=== PATIENT | female | born 1960 | race Caucasian/White ===

== ENCOUNTER 2022-01-30 11:22 | Outpatient (CLI) | payer OTHER, SELFPAY ==
--- OUTSIDE RECORDS SUMMARY | 2022-01-30 11:32 | XMS_ITS | Encounter Summary ---
:1960 Author Organization [facility] Address [address] [place] [phone] Care Team Providers Name Role Phone Elsewhere, Pcp Primary Care Provider Unavailable Reason for Referral Outpatient (Routine) - Authorized Specialty Diagnoses / Procedures Referred By Contact Refer red To Contact Neurology Андрей Gil M.D. [address] [phone] Referral ID Status Reason Start Date Expiration Date Visits V isits Requested Authorized [id number] Authorized 11/20/2021 11/20/2022 1 1 Scheduling Instructions All appointments on the same day with [facility] Neurosurgery and Ophthalmology. Thank you utpatient (Routine) - Authorized Specialty Diagnoses / Procedures Referred By Contact Refer red To Contact Ophthalmology Diagnoses Meningioma Brain (HCC) Андрей Gil M.D. [address] [phone] Referral ID Status Reason Start Date Expiration Date Visits V isits Requested Authorized [id number] Authorized 11/20/2021 11/20/2022 1 1 Reason for Visit Appointment Request (Routine) - Authorized Specialty Diagnoses / Procedures Referred By Contact Refer red To Contact Neurology Diagnoses Tumor Brain Benign (HCC) Referral ID Status Reason Start Date Expiration Date Visits V isits Requested Authorized [id number] Authorized 11/12/2021 11/12/2022 2 2 Encounter Details Date Type Department Care Team Description 11/20/2021 Comprehensive Visit Department of [facility], Rajiv Maddox Brain Neurology in [place] ([facility]) (Primary Dx) [place], [place] 200 [facility] [address] [place] [phone] Social History Tobacco Use Types Packs/Day Years Used Date Smoking Tobacco: Former Cigarettes 25 04/1977 - 04/27/2016 Smokeless Tobacco: Never Comments: Half pack daily on average whe n smoking Alcohol Use Standard Drinks/Week Comments Yes 3 (1 standard drink = 0.6 oz pure alcoho l) 1-2 shots a week Alcohol Habits Answer Date Recorded How often do you have a drink containing alcohol? 2-4 times a month 11/16/2021 How many drinks containing alcohol do you have on a 1 or 2 11/16/2021 typical day when you are drinking? How often do you have six or more drinks on one Never 11/16/2021 occasion? Comment: 1-2 shots a week 11/19/2021 Social Isolation Answer Date Recorded In a typical week, how many times do you More than three leesa es a week 11/16/2021 talk on the phone with family, friends, or neighbors? How often do you get together with friends Twice a week 11/16/2021 or relatives? How often do you attend temple or Never 2021 buddhist services? Do you belong to any clubs or No 11/16/2021 organizations such as temple groups, unions, fraternal or athletic groups, or school groups? How often do you attend meetings of the Never 11/16/2021 clubs or organizations you belong to? Are you now , , , 11/16/2021 , never or living with a partner? Physical Activity Answer Date Recorded On average, how many days per week do you engage in moderate to 2 days 11/16/2021 strenuous exercise (like walking fast, running, jogging, dancing, swimming, biking, or other activities that cause a light or heavy sweat)? On average, how many minutes do you engage in exercise at is 60 min 11/16/2021 level? Stress Answer Date Recorded Do you feel stress - tense, restless, nervous, or anxious, o r Very much 11/16/2021 unable to sleep at night because your mind is troubled all the time - these days? Financial Resource Strain Answer Date Recorded How hard is it for you to pay for the very basics like Not h slick at all 11/16/2021 food, housing, medical care, and heating? Intimate Partner Violence Answer Date Recorded Within the last year, have you been afraid of your partner o r No 11/16/2021 ex-partner? Within the last year, have you been humiliated or emotionall y No 11/16/2021 abused in other ways by your partner or ex-partner? Within the last year, have you been kicked, hit, slapped, or No 11/16/2021 otherwise physically hurt by your partner or ex-partner? Within the last year, have you been raped or forced to have any No 11/16/2021 kind of sexual activity by your partner or ex-partner? Food Insecurity Answer Date Recorded Within the past 12 months, you worried that your food would Never true 11/16/2021 run out before you got money to buy more. Within the past 12 months, the food you bought just didn't N ever true 11/16/2021 last and you didn't have money to get more. Transportation Needs Answer Date Recorded In the past 12 months, has lack of transportation kept you f rom No 11/16/2021 medical appointments or from getting medications? In the past 12 months, has lack of transportation kept you f rom No 11/16/2021 meetings, work, or getting things needed for daily living? Housing Stability Answer Date Recorded In the last 12 months, was there a time when you were not ab le No 11/16/2021 to pay the mortgage or rent on time? In the last 12 months, how many places have you lived? 1 11/16/2021 In the last 12 months, was there a time when you did not hav e a No 11/16/[address] sleep or slept in a alf (including now)? Education Answer Date Recorded What is the highest level of school Bachelor's degree (e.g., BA, AB, 11/16/2021 you have completed or the highest BS) degree you have received? Sex Assigned at Date Recorded Female 11/16/2021 11:51 AM CDT documented as of this encounter Last Filed Vital Signs Vital Sign Reading Time Taken Comments Blood Pressure 134/79 11/20/2021 8:50 AM CDT Pulse 63 11/20/2021 8:50 AM CDT Temperature - - Respiratory Rate - - Oxygen Saturation - - Inhaled Oxygen Concentration - - Weight 85.4 kg (188 lb 4.4 oz) 11/20/2021 8:50 AM CDT Height 166.2 cm (5' 5.43) 11/20/2021 8:50 AM CDT Body Mass Index 30.92 11/20/2021 8:50 AM CDT documented in this encounter Consult Notes Андрей Gil M.D. - 11/20/2021 9:00 AM CDT Images from the original note were not included. SUBJECTIVE CHIEF COMPLAINT/ REASON FOR VISIT Possible meningioma HISTORY OF PRESENT ILLNESS Ms. Miller is a very pleasant 61-year-old left-handed woman who on 11/12/2021 presented with acute onset vertigo. She awoke in the morning feeling perfectly fine but then when she bent down to picksomething off the floor, she experienced a tremendous sense of rotational vertigo as she was coming back up. This caused her to be nauseated and feel quite distressed. She was brought to the local hospital where she underwent a stroke workup; CT perfusion and angio studies were unremarkable). MRI revealed what appears to be a right cavernous sinus region mass and hence the referral to the Neurology/Neuro-Oncology Clinic today. She feels that the vertigo has improved significantly although she still feels a hint of rotational vertigo if she changes positions too quickly but she is still much better. Since the vertigo attack on November 12, she is noticed that the vision in the right eye is slightly blurry. She feels that the vision was in no way affected prior to November 12. Otherwise in good health. Has bilateral hearing difficulties and tinnitus going back many years, in part related to exposure to loud noises in the past. SYSTEMS REVIEW CURRENT MEDICATIONS Current Outpatient Medications Medication Sig Dispense Refill acetaminophen (TYLENOL) 500 mg capsule Take 2 capsules by mouth as needed. albuterol 90 mcg/actuation inhaler Inhale 2 puffs as needed. budesonide (ENTOCORT EC) 3 mg 24 hr capsule TAKE 3 CAPSULES BY MOUTH EVERY DAY IN THE MORNING FOR 8WEEKS buPROPion XL (WELLBUTRIN XL) 150 mg 24 hr tablet Take 1 tablet (150 mg) by mouth every morning for 7 days, THEN 2 tablets (300 mg) every morning for 23 days. diazePAM (VALIUM) 2 mg tablet Take 0.5-1 tablets (1-2 mg) by mouth every 6 hours as needed (vertigo) lisinopril-hydroCHLOROthiazide (PRINZIDE,ZESTORETIC) 10-12.5 mg per tablet Take 1 tablet by mouth daily. triamcinolone (KENALOG) 0.1 % cream Apply 1 application topically 2 (two) times a day as needed. Toaffected area. No current facility-administered medications for this visit. ALLERGIES Varenicline PAST MEDICAL HISTORY Past Medical History: Diagnosis Date Anxiety Generalized Disorder Cataract Colitis Ulcerative (HCC) 09/25/2021 Depressive Disorder 1994 Eczema Hyperlipidemia Hypertension NOS Polyp Colon 03/2021 Stone Kidney PAST SURGICAL HISTORY Past Surgical History: Procedure Laterality Date BREAST SURGERY 2001 Reduction SECTION 1982 HYSTERECTOMY 2000 FAMILY HISTORY Family History Problem Relation Age of Onset Hypertension Mother Hyperlipidemia Mother Thyroid disease Mother Osteoporosis Mother Kidney disease Mother Colon polyps Mother Depression Mother Stroke Maternal Grandfather mid 60???s stroke Breast cancer Maternal Grandmother Dx early 70???s Diabetes Maternal Grandmother Childhood diabetes Lung cancer Paternal Grandfather Dx mid 60???s non smoker Asthma Daughter SOCIAL HISTORY Social History Tobacco Use Smoking Status Former Years: 25.00 Types: Cigarettes Start date: 04/27/1977 Quit date: 04/27/2016 Years since quittin.5 Smokeless Tobacco Never Tobacco Comments Half pack daily on average when smoking Social History Substance and Sexual Activity Drug Use Never Social History Substance and Sexual Activity Alcohol Use Yes Alcohol/week: 3.0 standard drinks Types: 1 Cans of beer, 2 Shots of liquor per week Comment: 1-2 shots a week VITAL SIGNS Vitals: 11/20/21 0850 BP: 134/79 BP Location: Right arm Patient Position: Sitting Pulse: 63 Weight: 85.4 kg Height: 166.2 cm MOST RECENT LABS OBJECTIVE PHYSICAL EXAM On exam, she is alert, conversive. She does have some hearing difficulties and the audiology exam done sometime ago locally indicated this is sensorineural loss bilaterally. Mental status is normal. The cranial nerve testing shows normal eye movements and specifically nothing for dysconjugate gaze.Pupils are equal but there is a slight relative afferent pupillary defect on the right side (this jeison subtle finding). Funduscopy shows absent venous pulsations on the right side. Her acuity appears not to be affected least on bedside testing. Rest of the cranial nerve testing is normal. In particular, nothing for trigeminal sensory deficits. Normal strength and coordination. Gait is steady. Toes are downgoing. IMAGING STUDIES & LAB RESULTS Per the images of November 12 below, there is what appears to be a meningioma in the right cavernous sinus region, with possible calcification within the core of the mass. Also, per the coronal image on the right panel, the tumor does contact the right aspect of the chiasm and seems to also encases the carotid and the optic nerve partly as well. Findings are compatible with meningioma. Of note, in terms of her vertigo that brought her to medical attention, the eighth cranial nerve complex looks unremarkable. ASSESSMENT / PLAN IMPRESSIONS & PLAN SUMMARY & FORMULATION: In summary, Ms. Miller is a 61-year-old woman with a longstanding history of bilateral hearing difficulties and tinnitus, who presented with acute-onset vertigo on the morning of November 12. In the emergency department setting, underwent detailed evaluations which fortunately ruled out stroke but revealed what appears to be a right skull base meningioma, causing mass effect on the optic apparatus and encasement of the carotid as well as the apex portion of the optic nerve. She really has not noticed any visual difficulties in the right eye until the episode of vertigo on November 12. Clinical examis unremarkable except for a slight relative afferent pupillary defect on the right side, likely attr ibutable to this tumor impinging upon the optic apparatus. In terms of her vertigo, this appears to be peripheral vestibular in origin and has already nearly resolved. SYNOPSIS OF PLAN: We will obtain a detailed Neuro-Ophthalmology exam including visual field testing to better assess to what extent her optic nerve function is affected by this tumor. DISCUSSION: We will bring her back for the Neuro-Ophthalmology exam and at that point, we will have her visit one of our skull base neurosurgical colleagues and I will see her at that time as well. If the detailed neurophthalmologic examination demonstrates significant optic nerve dysfunction, then she would need treatment. Because of the location of the tumor, surgery may be challenging and therefore she may be more of a candidate for fractionated radiation. Again, we will go through these discussions more detail once we have the ophthalmologic findings in hand. I reviewed the images frame by frame with the patient and her squirrel man. She is in agreement with the aforementioned plans and I look forward to seeing her back. DIAGNOSES #1 Meningioma documented in this encounter Plan of Treatment Upcoming Encounters Date Type Specialty Care Team Description 02/03/2022 Clinical Communication Admitting/Central Scheduling 02/04/2022 Ancillary Procedure Ophthalmology Андрей Gil M.D. [address] [place] [phone] 02/04/2022 Ancillary Procedure Ophthalmology Robby Coppola M.D. [address] [place] [phone] 02/04/2022 Ancillary Procedure Ophthalmology Robby Coppola M.D. [address] [place] [phone] 02/04/2022 Comprehensive Visit Ophthalmology Robby Coppola M.D. [address] [place] [phone] 02/06/2022 Office Visit Neurology Андрей mark M.D. [address] [place] [phone] 02/07/2022 Comprehensive Visit Neurological Surgery Charlotte Elam M.D., Ph.D. [address] [place] [phone] Scheduled Orders Name Type Priority Associated Diagnoses Order S chedule Automated VF - Ophthalmology Routine Meningioma Brain (HCC) Ex pected: Extended - OU - Both 022 Eyes (Approximate), Expires: 2022 Scheduled Referrals Name Type Priority Associated Order Schedule Diagnoses Ophthalmology - Neuro Outpatient Referral Routine Meningioma B rain Expected: consult (clinic) ([facility]) 11/20/2021 (Approximate), Expires: 02/20/2023 Neurology office visit Outpatient Referral Routine Expected: (clinic) 11/20/2021 (Approximate), Expires: 02/20/2023 documented as of this encounter Visit Diagnoses Diagnosis Meningioma Brain (HCC) - Primary documented in this encounter Care Teams Derrick Barge Operator Relationship Specialty Start Date End Date Elsewhere, Pcp PCP - General Internal Medicine 11/19/21 documented as of this encounter
--- OUTSIDE RECORDS SUMMARY | 2022-01-30 11:32 | XMS_ITS | Encounter Summary ---
:1960 Author Organization [facility] Address [address] [place] [address] Care Team Providers Name Role Phone Unavailable Primary Care Provider Unavailable Reason for Referral Outpatient (Routine) - Closed Specialty Diagnoses / Procedures Referred By Contact Refer red To Contact Diagnoses Long QT Syndrome Garland Simpson M.D., Procedures ECG Heart rhythm monitor (Holter) Ph.D. [address] [place], [place] [phone] Referral ID Status Reason Start Date Expiration Date Visits Requ ested Visits Authorized [id number] Closed 03/30/2019 03/29/2020 1 1 CUTTER Reason for Visit Outpatient (Routine) - Closed Specialty Diagnoses / Procedures Referred By Contact Refer red To Contact Diagnoses Long QT Syndrome Garland Simpson M.D., Procedures ECG Heart rhythm monitor (Holter) Ph.D. [address] [place], [place] [phone] Referral ID Status Reason Start Date Expiration Date Visits Requ ested Visits Authorized [id number] Closed 03/30/2019 03/29/2020 1 1 Encounter Details Date Type Department Care Team Description 06/16/2019 Hospital Encounter Department of [facility] QT Syndrome Cardiovascular Diseases Garland Parker M.D., in [facility] Ph.D. [address] [facility] [address] [place] [phone] Social History Tobacco Use Types Packs/Day Years Used Date Smoking Tobacco: Never Assessed Alcohol Habits Answer Date Recorded How often do you have a drink containing alcohol? 2-4 times a month 11/16/2021 How many drinks containing alcohol do you have on a 1 or 2 11/16/2021 typical day when you are drinking? How often do you have six or more drinks on one Never 11/16/2021 occasion? Comment: Not asked Social Isolation Answer Date Recorded In a typical week, how many times do you More than three leesa es a week 11/16/2021 talk on the phone with family, friends, or neighbors? How often do you get together with friends Twice a week 11/16/2021 or relatives? How often do you attend hinduism or Never 2021 moravian services? Do you belong to any clubs or No 11/16/2021 organizations such as hinduism groups, unions, fraternal or athletic groups, or [...] minutes do you engage in exercise at th is 60 min 11/16/2021 level? Stress Answer [...] place to sleep or slept in a fdc (including now)? Sex Assigned at Date Recorded Female 11/16/2021 11:51 AM CDT documented as of this encounter Medications at Time of Discharge Medication Sig Dispensed Refills Start Date End Date lisinopril-hydroCHLOROthiazi Take 1 tablet by 0 0 06/23/2017 de (PRINZIDE,ZESTORETIC) mouth daily. 10-12.5 mg per tablet cholecalciferol, vitamin D3, Take 2,000 Units 0 11/19/2021 (VITAMIN D3 ORAL) by mouth daily. FLUoxetine (PROzac) 40 mg Take 40 mg by 0 017 11/19/2021 capsule mouth daily. lisdexamfetamine (VYVANSE) Take 40 mg by 0 201811/19/2021 40 mg capsule mouth daily. documented as of this encounter Plan of Treatment Upcoming Encounters Date Type Specialty Care Team Description 02/03/2022 Clinical Communication Admitting/Central Scheduling 02/04/2022 Ancillary Procedure Ophthalmology Андрей mark M.D. [address] [place] [phone] 02/04/2022 Ancillary Procedure Ophthalmology Robby Coppola M.D. [address] [place] [phone] 02/04/2022 Ancillary Procedure Ophthalmology Robby Coppola M.D. [address] [place] [phone] 02/04/2022 Comprehensive Visit Ophthalmology Robby Coppola M.D. [address] [place] [phone] 02/06/2022 [facility] [address] [place] [phone] 02/07/2022 Comprehensive Visit Neurological Surgery Charlotte Elam M.D., Ph.D. [address] [place] [phone] documented as of this encounter Procedures Procedure Name Priority Date/Time Associated Diagnosis Comme nts HOLTER MONITOR - IN Routine 06/16/2019 11:05 AM Long QT Syndro me Results for this [facility] TIE CUTTER procedure are in the results section. documented in this encounter Results HOLTER MONITOR - IN [facility] (06/16/2019 11:05 AM TIE CUTTER) [facility] Method Time Signature Min Heart Rate 68 bpm HOLTER SENTINEL Analysis Date , HOLTER SENTINEL Mean Heart 82 bpm HOLTER Rate SENTINEL Bradycardia 0 count HOLTER Runs SENTINEL SVE Max Per HOLTER Hour Time SENTINEL Holter Pauses 0 count HOLTER SENTINEL Max Heart Rate 106 bpm HOLTER SENTINEL SVT Runs 0 count HOLTER SENTINEL Min Heart Rate HOLTER Time SENTINEL VT Runs 0 count HOLTER SENTINEL Max Heart Rate HOLTER Time SENTINEL AF Count 0 count HOLTER SENTINEL VE Percent 0 percent HOLTER Beats SENTINEL VE Total Beats 19 count HOLTER SENTINEL Recording Date HOLTER SENTINEL VE Max Per 5 count HOLTER Hour SENTINEL SVE Total 14 count HOLTER Beats SENTINEL SVE Max Per 3 count HOLTER Hour SENTINEL VE Max Per HOLTER Hour Time SENTINEL Tachycardia 0 count HOLTER Runs SENTINEL SVE Percent 0 percent HOLTER Beats SENTINEL Specimen (Source) Anatomical Collection Method Collection Time Re ceived Time Location / / Volume Laterality 06/16/2019 11:01 AM TIE CUTTER Narrative This result has an attachment that is no t available. Garland Simpson M.D., Ph.D. [facility] PRO CEDURES Performing Organization Address City/State/ZIP Code Phon e Number HOLTER SENTINEL HOLTER SENTINEL NA documented in this encounter Visit Diagnoses Diagnosis Long QT Syndrome documented in this encounter
--- OUTSIDE RECORDS SUMMARY | 2022-01-30 11:32 | XMS_ITS | Encounter Summary ---
:1960 Author Organization [facility] Address [address] [place] [address] Care Team Providers Name Role Phone Unavailable Primary Care Provider Unavailable Encounter Details Date Type Department Care Team Description 06/16/2019 Hospital Encounter Department of Dionna Simpson Laboratory Medicine Garland Parker M.D., Inte rval and Pathology, Ph.D. [address] [phone] [place] [address] [place], [place] (Work) [phone] Social History Tobacco Use Types Packs/Day Years [...] or relatives? How often do you attend yazidism or Never 2021 rastafarian services? Do you belong to any clubs or No 11/16/2021 organizations such as yazidism groups, unions, fraternal or athletic groups, or [...] place to sleep or slept in a intermediate (including now)? Sex Assigned at Date Recorded [...] Communication Admitting/Central Scheduling 02/04/2022 [facility] [address] [place] [phone] 02/04/2022 Ancillary Procedure Ophthalmology Robby Coppola M.D. [address] [place] [phone] 02/04/2022 Ancillary Procedure Ophthalmology Robby Coppola M.D. [address] [place] [phone] 02/04/2022 Comprehensive Visit Ophthalmology Robby Coppola M.D. [address] [place] [phone] 02/06/2022 Office Visit Neurology [facility], Андрей Richardson M.D. [address] [place] [phone] 02/07/2022 Comprehensive Visit Neurological Surgery Charlotte Elam M.D., Ph.D. [address] [place] [phone] documented as of this encounter Procedures Procedure Name Priority Date/Time Associated Comments Diagnosis SODIUM, S/P Routine 06/16/2019 10:53 Prolonged QT Results for this AM SUPERVISOR ASSEMBLY STOCK Interval procedure are i n the results section. POTASSIUM, S/P Routine 06/16/2019 10:53 Prolonged QT Results f or this AM SUPERVISOR ASSEMBLY STOCK Interval procedure are i n the results section. MAGNESIUM, S Routine 06/16/2019 10:53 Prolonged QT Results for this AM SUPERVISOR ASSEMBLY STOCK Interval procedure are i n the results section. CREATININE WITH EGFR, Routine 06/16/2019 10:53 Prolonged QT Re sults for this S/P AM SUPERVISOR ASSEMBLY STOCK Interval procedure are i n the results section. CALCIUM, TOT, S/P Routine 06/16/2019 10:53 Prolonged QT Result s for this AM SUPERVISOR ASSEMBLY STOCK Interval procedure are i n the results section. MISC. INVITAE Routine 06/16/2019 10:52 Results fo r this CORPORATION AM SUPERVISOR ASSEMBLY STOCK procedure are i n the results section. documented in this encounter Results Calcium, Total (06/16/2019 10:53 AM SUPERVISOR ASSEMBLY STOCK) P athologist Signature Calcium, Total, 9.6 8.8 - 10.2 06/16/2019 DTL S mg/dL 12:27 PM SUPERVISOR ASSEMBLY STOCK Specimen Anatomical Collection Method Collection Time Receive d Time (Source) Location / / Volume Laterality Blood (Blood, 06/16/2019 10:53 06/16/2019 Venous) AM SUPERVISOR ASSEMBLY STOCK 12:11 PM SUPERVISOR ASSEMBLY STOCK Garland Simpson M.D., Ph.D. LAB BLOOD ADD-ON Performing Organization Address City/State/ZIP Code Phon e Number [facility] - 200 [place], [place] [address] [facility] [place] [address] [facility] [address] Sodium (06/16/2019 10:53 AM SUPERVISOR ASSEMBLY STOCK) P athologist Signature Sodium, S 141 135 - 145 06/16/2019 DTL mmol/L 12:27 PM SUPERVISOR ASSEMBLY STOCK Specimen Anatomical Collection Method Collection Time Receive d Time (Source) Location / / Volume Laterality Blood (Blood, 06/16/2019 10:53 06/16/2019 Venous) AM SUPERVISOR ASSEMBLY STOCK 12:11 PM SUPERVISOR ASSEMBLY STOCK Garland Simpson M.D., Ph.D. LAB BLOOD ADD-ON Performing Organization Address City/State/ZIP Code Phon e Number [facility] - [address] [place], [place] [address] [place] [id number] [facility] [address] Potassium (06/16/2019 10:53 AM SUPERVISOR ASSEMBLY STOCK) athologist Signature Potassium, S 4.8 3.6 - 5.2 06/16/2019 DTL mmol/L 12:27 PM SUPERVISOR ASSEMBLY STOCK Specimen Anatomical Collection Method Collection Time Receive d Time (Source) Location / / Volume Laterality Blood (Blood, 06/16/2019 10:53 06/16/2019 Venous) AM SUPERVISOR ASSEMBLY STOCK 12:11 PM SUPERVISOR ASSEMBLY STOCK Garland Simpson M.D., Ph.D. LAB BLOOD ADD-ON Performing Organization Address City/State/ZIP Code Phon e Number [facility] - [address] [place], [place] [address] [place] [address] [facility] [address] Magnesium (06/16/2019 10:53 AM SUPERVISOR ASSEMBLY STOCK) athologist Signature Magnesium, S 2.0 1.7 - 2.3 06/16/2019 DTL mg/dL 12:27 PM SUPERVISOR ASSEMBLY STOCK Specimen Anatomical Collection Method Collection Time Receive d Time (Source) Location / / Volume Laterality Blood (Blood, 06/16/2019 10:53 06/16/2019 Venous) AM SUPERVISOR ASSEMBLY STOCK 12:11 PM SUPERVISOR ASSEMBLY STOCK Garland Simpson M.D., Ph.D. LAB BLOOD ADD-ON Performing Organization Address City/State/ZIP Code Phon e Number [facility] - [address] [place], [place] [address] [place], [place] [id number] [place] [address] Creatinine with Estimated GFR (06/16/2019 10:53 AM SUPERVISOR ASSEMBLY STOCK) P athologist Signature Creatinine 0.75 0.59 - 06/16/2019 DTL 1.04 mg/dL 12:27 PM SUPERVISOR ASSEMBLY STOCK eGFR-Non 87 >=60 06/16/2019 DTL Black/ mL/min/BSA 12:27 PM SUPERVISOR ASSEMBLY STOCK Greek Comment: ----ADDITIONAL INFORMATION---- Estimated GFR calculated using the 2009 CKD_EPI creatinine equation. eGFR-Black/ >90 >=60 mL/min/BSA 2019 12:27 PM SUPERVISOR ASSEMBLY STOCK DTL Comment: ----ADDITIONAL INFORMATION---- Estimated GFR calculated using the 2009 CKD_EPI creatinine equation. Specimen Anatomical Collection Method Collection Time Receive d Time (Source) Location / / Volume Laterality Blood (Blood, 06/16/2019 10:53 06/16/2019 Venous) AM SUPERVISOR ASSEMBLY STOCK 12:11 PM SUPERVISOR ASSEMBLY STOCK Garland Simpson M.D., Ph.D. LAB BLOOD ADD-ON Performing Organization Address City/State/ZIP Code Phon e Number [facility] - 200 [place], [place] [address] [facility] [place] [address] [facility] 200 [facility]. [employer] (06/16/2019 10:52 AM SUPERVISOR ASSEMBLY STOCK) Analysis Performed At Patho logist Time Signature Test Name arrythmia and 06/16/2019 INVC cardio panel 2:34 PM SUPERVISOR ASSEMBLY STOCK Result SEE COMMENT 06/29/2019 INVC 3:12 PM SUPERVISOR ASSEMBLY STOCK Comment: For final report, select Lab-Send Out L ab Results hyperlink below. Specimen Anatomical Collection Method Collection Time Receive d Time (Source) Location / / Volume Laterality Varies 06/16/2019 10:52 06/16/2019 2:34 AM SUPERVISOR ASSEMBLY STOCK PM SUPERVISOR ASSEMBLY STOCK Narrative This result has an attachment that is no t available. Garland Simpson M.D., Ph.D. LAB Phone2ActionC ORDERABLES Performing Organization Address City/State/ZIP Code Phon e Number [email or web address] [address] [employer] [facility] [address] [place] [address] INV [email or web address] [place], [place] [address] [phone] documented in this encounter Visit Diagnoses Diagnosis Prolonged QT Interval documented in this encounter
--- OUTSIDE RECORDS SUMMARY | 2022-01-30 11:32 | XMS_ITS | Encounter Summary ---
:1960 Author Organization [facility] Address [address] [place] [address] Care Team Providers Name Role Phone Unavailable Primary Care Provider Unavailable Encounter Details Date Type Department Care Team Description 03/06/2021 Orders Only RST PCP [facility] Nazia Herrmann M.D. [address] [place], [place] [phone] (Wo rk) Social History Tobacco Use Types Packs/Day Years [...] or relatives? How often do you attend holiness or Never 2021 jain services? Do you belong to any clubs or No 11/16/2021 organizations such as holiness groups, unions, fraternal or athletic groups, or [...] AM CDT documented as of this encounter Plan of Treatment Upcoming Encounters Date Type Specialty Care Team Description 02/03/2022 Clinical Communication Admitting/Central Scheduling 02/04/2022 Ancillary Procedure Ophthalmology Андрей mark M.D. [address] [place] [phone] 02/04/2022 Ancillary Procedure Ophthalmology Robby Coppola M.D. [address] [place] [phone] 02/04/2022 Ancillary Procedure Ophthalmology Robby Coppola M.D. [address] [place] [phone] 02/04/2022 Comprehensive Visit Ophthalmology Robby Coppola M.D. [address] [place] [phone] 02/06/2022 [facility] [address] [place] [phone] 02/07/2022 Comprehensive Visit Neurological Surgery Charlotte Elam M.D., Ph.D. [address] [place] [phone] documented as of this encounter Visit Diagnoses Not on filedocumented in this encounter
--- OUTSIDE RECORDS SUMMARY | 2022-01-30 11:32 | XMS_ITS | Encounter Summary ---
:1960 Author Organization [facility] Address [address] [place] [address] Care Team Providers Name Role Phone Unavailable Primary Care Provider Unavailable Reason for Visit Appointment Request (Routine) - Closed Specialty Diagnoses / Procedures Referred By Contact Refer red To Contact Cardiovascular Disease Referral ID Status Reason Start Date Expiration Date Visits Requ ested Visits Authorized [id number] Closed 01/18/2019 01/18/2020 1 1 Encounter Details Date Type Department Care Team Description 06/16/2019 Comprehensive Visit Division of Dionna Simpson QT Pediatric Garland Parker M.D., Interval ([facility] in Ph.D. Dx) [place], [facility] [address] [place], [place] [address] [facility] [phone] [place], [place] [phone] (Work) [phone] Social History Tobacco Use Types Packs/Day Years [...] or relatives? How often do you attend scientology or Never 2021 worship services? Do you belong to any clubs or No 11/16/2021 organizations such as scientology groups, unions, fraternal or athletic groups, or [...] place to sleep or slept in a chcf (including now)? Sex Assigned at Date Recorded Female 11/16/2021 11:51 AM CDT documented as of this encounter Last Filed Vital Signs Vital Sign Reading Time Taken Comments Blood Pressure - - Pulse - - Temperature - - Respiratory Rate - - Oxygen Saturation - - Inhaled Oxygen Concentration - - Weight 89.5 kg (197 lb 5 oz) 06/16/2019 8:36 AM CORRUGATED BOX MACHINE OPERATOR Height 164.6 cm (5' 4.8) 06/16/2019 8:36 AM CORRUGATED BOX MACHINE OPERATOR Body Mass Index 33.03 06/16/2019 8:36 AM CORRUGATED BOX MACHINE OPERATOR documented in this encounter Consult Notes Garland Simpson M.D., Ph.D. - 06/16/2019 9:00 AM CST [facility]. REFERRAL SOURCE Self. REASON FOR CONSULT Initial consultation, second opinion regarding the possibility of long QT syndrome secondary to recently identified QT prolongation. HISTORY OF PRESENT ILLNESS I had the privilege of evaluating Robbie Miller in [facility] today. Robbie is a delightful 59-year-old white female who is here with her , Estephanie. Together, Robbie and Estephanie are trying to determine whether or not her recently identified prolonged QT interval is of any particular concern especially whether she does or does not have long QT syndrome. Overall, Robbie is very healthy. She has never experienced a long QT syndrome attributable, faint, generalized seizure, unexplained accident, or near drowning. She would be the index case or the first person diagnosed if long QT is relevant in her. Instead, her portal of entry started in December of 2018 when she presented to the local emergency department because of shortness of breath. She had just recently started Vyvanse about the week or 2 prior for an attention deficit disorder. There in the emergency department they obtained what she thinks is her first ever electrocardiogram which was flagged as showing a prolonged QT interval. However, her potassium was noted at that time to be low at 3.1. They then replenished her potassium. She hadher ECG repeated, and there was still persistent QT prolongation. She was advised to follow up with her primary care provider, and she was advised to simply avoid QT-prolonging drugs. However, she was already on 1 such QT prolonging drug with her antidepressant medication fluoxetine. She has been on some sort of antidepressant therapy for the past 20 years or so. Previous medications have included Wellbutrin and Zoloft. Because of the combination of the ECG finding and her treatment with fluoxetine, she sought us out for further evaluation to make sure there was not long QT syndrome present. FAMILY HISTORY I did review a multigenerational family history. Overall, it is unremarkable. There have been no 1stor 2nd-degree relatives who suddenly or unexpectedly. Her 1st-degree relatives include her 36-year-old daughter and her 62-year-old brother. Both of her parents have . Her father at age 82, but at age 30 he had a heart attack. She has recollection of her father having a sternotomy. He had coronary artery disease risk factors with smoking and obesity. The only potential family history of relevance involves that of a 5th- degree relative on her father's side of the family. This infant at around 2-3 months of so-called sudden syndrome. CURRENT MEDICATIONS 1. Fluoxetine 40 mg daily. 2. Vyvanse 40 mg daily. 3. Lisinopril hydrochlorothiazide 1 tablet daily. ALLERGIES/CONTRAINDICATIONS Varenicline, we think. REVIEW OF SYSTEMS All systems reviewed and negative. OBJECTIVE PHYSICAL EXAMINATION Vital Signs: Weight 89.5 kg, height 164.6 cm. HEENT: Unremarkable. Thyroid: Not palpable. Lungs: Clear to auscultation. Cardiovascular: Quiet precordium. Normal heart sounds. No clicks. No murmurs. ASSESSMENT / PLAN #1 Persistent drug-induced QT prolongation versus asymptomatic, incidentally detected long QT syndrome #2 Today's QTc 485 msec I had the distinct privilege of spending over an hour with Robbie and her . I am delighted to get to take care of them. I did review the outside medical records that were provided and the results of her present cardiologic evaluation. At this time, there is no way of determining whether or not she simply has a drug-induced (fluoxetine) QT prolongation, or whether her QT interval is longer than normal because of that drug on top of a background of congenital long QT syndrome. Yesterday's ECG recorded a QTc of 487 milliseconds by computer, and I agree with this calculation. Today's QTc was 485 msec. At the start of her stress test, her resting QTc values were 493 sitting, 489 supine, and 480 standing. As such, she has persistent resting QT prolongation. As a frame of reference, the average QTc in otherwise healthy women not on any QT-prolonging medications is 420 msec and the 99th percentile value in healthy women is 480 msec. In contrast, the average QTc value of all of my patients with genetic long QT syndrome is 470 milliseconds. Her stress test is atypical. In other words, her QT reaction during the stress test does not fit that of the 2 most common genetic subtypes of long QT syndrome, which accounts for about 70% of all longQT syndrome. Accordingly, if I had to bet, I think we are dealing simply with drug-associated QT prolongation. She is not aware of ever having an ECG in the absence of fluoxetine or any other SSRI. Our choices would be to stop both her fluoxetine and Vyvanse, and see if her QT normalizes. I would rather not do that, however. Instead, I think we will just get electrolytes redetermined today to make sure her potassium and magnesium levels are replenished because that 2 could be QT aggravating. Then, I would like to obtain the [facility] long QT genetic test. That genetic test all by itself accounts for 80% of all known long QTsyndrome. In other words, if that genetic test is negative, I think the evidence would tilt stronglyin favor of a drug-associated QT reaction. If so, I think we can simply stay on these 2 medications as long as her QTc remains below 500 msec. I use 500 milliseconds as the line in the sand to make either a medication removal or a dose reduction as that threshold is the threshold of increased proarrhythmic potential from noncardiac QT prolonging medications. In other words, once we have normal electrolytes and a negative genetic test, I think we can comfortably and confidently continue with the medications and just be aware that no other healthcare provider should ever place her on yet another medication with its own QT prolonging potential. Stacking the deck with multiple QT-prolonging drugs is the single most common reason for drug-induced cardiac arrest. Our next point of contact will be in about 2 weeks when the genetic test comes back. Again, if it isnegative, everything will be easy. If it is positive, it will also be straightforward. We may not even need to change her medications at that time. We would then have a diagnostic marker that would be available for her daughter and brother to determine whether or not they are at any increased risk from a QT standpoint. PATIENT EDUCATION: Ready to learn, no apparent learning barriers were identified; learning preferences include listening. Explained diagnosis and treatment plan; patient expressed understanding of the content. Plan of care as outlined above discussed in full detail. Sixty minutes direct [id number] consultation; greater than 50% counseling/coordination of care. Garland Simpson M.D., Ph.D. CT CT Job ID: [id number] UGATED BOX MACHINE OPERATOR documented in this encounter Plan of Treatment Upcoming Encounters Date Type Specialty Care Team Description 02/03/2022 Clinical Communication Admitting/Central Scheduling 02/04/2022 Ancillary Procedure Ophthalmology Андрей mark M.D. 200 [place] [phone] 02/04/2022 Ancillary Procedure Ophthalmology Robby Coppola M.D. 200 [place] [phone] 02/04/2022 Ancillary Procedure Ophthalmology Robby Coppola M.D. [address] [place] [phone] 02/04/2022 Comprehensive Visit Ophthalmology Robby Coppola M.D. [address] [place] [phone] 02/06/2022 Office Visit Neurology [facility], Андрей Richardson M.D. [address] [place] [phone] 02/07/2022 Comprehensive Visit Neurological Surgery Charlotte Elam M.D., Ph.D. 200 [place] [phone] documented as of this encounter Results Calcium, Total (06/16/2019 10:53 AM CORRUGATED BOX MACHINE OPERATOR) athologist Signature Calcium, Total, 9.6 8.8 - 10.2 06/16/2019 DTL S mg/dL 12:27 PM CORRUGATED BOX MACHINE OPERATOR Specimen Anatomical Collection Method Collection Time Receive d Time (Source) Location / / Volume Laterality Blood (Blood, 06/16/2019 10:53 06/16/2019 Venous) AM CORRUGATED BOX MACHINE OPERATOR 12:11 PM CORRUGATED BOX MACHINE OPERATOR Garland Simpson M.D., Ph.D. LAB BLOOD ADD-ON Performing Organization Address City/State/[facility] Code Phon e Number [facility] - [address] Sodium (06/16/2019 10:53 AM CORRUGATED BOX MACHINE OPERATOR) athologist Signature Sodium, S 141 135 - 145 06/16/2019 DTL mmol/L 12:27 PM CORRUGATED BOX MACHINE OPERATOR Specimen Anatomical Collection Method Collection Time Receive d Time (Source) Location / / Volume Laterality Blood (Blood, 06/16/2019 10:53 06/16/2019 Venous) AM CORRUGATED BOX MACHINE OPERATOR 12:11 PM CORRUGATED BOX MACHINE OPERATOR Garalnd Simpson M.D., Ph.D. LAB BLOOD ADD-ON Performing Organization Address City/State/[facility] Phon e Number [facility] - 200 [place], [place] [address] [facility] [address] Potassium (06/16/2019 10:53 AM CORRUGATED BOX MACHINE OPERATOR) athologist Signature Potassium, S 4.8 3.6 - 5.2 06/16/2019 DTL mmol/L 12:27 PM CORRUGATED BOX MACHINE OPERATOR Specimen Anatomical Collection Method Collection Time Receive d Time (Source) Location / / Volume Laterality Blood (Blood, 06/16/2019 10:53 06/16/2019 Venous) AM CORRUGATED BOX MACHINE OPERATOR 12:11 PM CORRUGATED BOX MACHINE OPERATOR Garland Simpson M.D., Ph.D. LAB BLOOD ADD-ON Performing Organization Address City/[facility] Phon e Number [facility] - [address] Magnesium (06/16/2019 10:53 AM CORRUGATED BOX MACHINE OPERATOR) athologist Signature Magnesium, S 2.0 1.7 - 2.3 06/16/2019 DTL mg/dL 12:27 PM CORRUGATED BOX MACHINE OPERATOR Specimen Anatomical Collection Method Collection Time Receive d Time (Source) Location / / Volume Laterality Blood (Blood, 06/16/2019 10:53 06/16/2019 Venous) AM CORRUGATED BOX MACHINE OPERATOR 12:11 PM CORRUGATED BOX MACHINE OPERATOR Garland Simpson M.D., Ph.D. LAB BLOOD ADD-ON Performing Organization Address City/[facility] Phon e Number [facility] - [address] [place] [address] [place] [address] [facility] Creatinine with Estimated GFR (06/16/2019 10:53 AM CORRUGATED BOX MACHINE OPERATOR) athologist Signature Creatinine 0.75 0.59 - 06/16/2019 DTL 1.04 mg/dL 12:27 PM CORRUGATED BOX MACHINE OPERATOR eGFR-Non 87 >=60 06/16/2019 DTL Black/ mL/min/BSA 12:27 PM CORRUGATED BOX MACHINE OPERATOR Ugandan Comment: ----ADDITIONAL INFORMATION---- Estimated GFR calculated using the 2009 CKD_EPI creatinine equation. eGFR-Black/ >90 >=60 mL/min/BSA 2019 12:27 PM CORRUGATED BOX MACHINE OPERATOR DTL Comment: ----ADDITIONAL INFORMATION---- Estimated GFR calculated using the 2009 CKD_EPI creatinine equation. Specimen Anatomical Collection Method Collection Time Receive d Time (Source) Location / / Volume Laterality Blood (Blood, 06/16/2019 10:53 06/16/2019 Venous) AM CORRUGATED BOX MACHINE OPERATOR 12:11 PM CORRUGATED BOX MACHINE OPERATOR Garland Simpson M.D., Ph.D. LAB BLOOD ADD-ON Performing Organization Address City/State/ZIP Code Phon e Number [facility] - [address] [place], [place] [address] [facility] [place] [address] [facility] [address] documented in this encounter Visit Diagnoses Diagnosis Prolonged QT Interval - Primary documented in this encounter
--- OUTSIDE RECORDS SUMMARY | 2022-01-30 11:32 | XMS_ITS | Encounter Summary ---
:1960 Author Organization [facility] Address [address] [place] [address] Care Team Providers Name Role Phone Elsewhere, Pcp Primary Care Provider Unavailable Encounter Details Date Type Department Care Team Description 01/29/2022 Orders Only Department of Francia Loco, Meningioma B rain (HCC) Neurologic Surgery in R.N. (Primary Dx) [place], [place] [address] [facility] [address] [place] [phone] Social History Tobacco Use Types Packs/Day Years Used Date Smoking Tobacco: Former Cigarettes 04/1977 - 04/27/2016 Smokeless Tobacco: Never Comments: [...] or relatives? How often do you attend mandaeism or Never 2021 lutheran services? Do you belong to any clubs or No 11/16/2021 organizations such as mandaeism groups, unions, fraternal or athletic groups, or [...] or slept in a intermediate (including now)? Education Answer Date Recorded What [...] Ancillary Procedure Ophthalmology Андрей mark M.D. [address] [place] [phone] 02/04/2022 Ancillary Procedure Ophthalmology Robby Coppola M.D. [address] [place] [phone] 02/04/2022 Ancillary Procedure Ophthalmology Robby Coppola M.D. [address] [place] [phone] 02/04/2022 Comprehensive Visit Ophthalmology Robby Coppola M.D. [address] [place] [phone] 02/06/2022 Office Visit Neurology Андрей mark M.D. [address] [place] [phone] 02/07/2022 Comprehensive Visit Neurological Surgery Charlotte Elam M.D., Ph.D. 200 [place] [phone] Scheduled Orders Name Type Priority Associated Diagnoses Order S chedule Audiogram Audiology Routine Meningioma Brain (HCC) Expec panfilo: 02/07/2022, Expires: 05/01/2023 documented as of this encounter Visit Diagnoses Diagnosis Meningioma Brain (HCC) - Primary documented in this encounter Care Teams Drywall Boardhanger Relationship Specialty Start Date End Date Elsewhere, Pcp PCP - General Internal Medicine 11/19/21 documented as of this encounter
--- OUTSIDE RECORDS SUMMARY | 2022-01-30 11:32 | XMS_ITS | Encounter Summary ---
:1960 Author Organization [facility] Address [address] [place] [address] Care Team Providers Name Role Phone Unavailable Primary Care Provider Unavailable Reason for Referral Specialty Diagnoses / Procedures Referred By Contact Refer red To Contact Nazia Urban M.D. [facility] [address] [place] [phone] Referral ID Status Reason Start Date Expiration Date Visits Requ ested Visits Authorized R BUILDER WINDER Encounter Details Date Type Department Care Team Description 03/06/2021 Orders Only RST PCP [facility] WERNERT Nazia Urban M.D. [address] [place] [phone] (Wo rk) Social History Tobacco [...] or relatives? How often do you attend pentecostal or Never 2021 christianity services? Do you belong to any clubs or No 11/16/2021 organizations such as pentecostal groups, unions, fraternal or athletic groups, or [...] place to sleep or slept in a custodial (including now)? Sex Assigned at Date Recorded Female 11/16/2021 11:51 AM CDT documented as of this encounter Plan of Treatment Upcoming Encounters Date Type Specialty Care Team Description 02/03/2022 Clinical Communication Admitting/Central Scheduling 02/04/2022 Ancillary Procedure Ophthalmology Андрей mark M.D. [address] [place] [phone] 02/04/2022 Ancillary Procedure Ophthalmology Robby Coppola M.D. [address] [place] [phone] 02/04/2022 Ancillary Procedure Ophthalmology Robby Coppola M.D. [address] [place] [phone] 02/04/2022 Comprehensive Visit Ophthalmology Robby Coppola M.D. [address] [place] [phone] 02/06/2022 [facility] [address] [place] [address] [phone] 02/07/2022 Comprehensive Visit Neurological Surgery Charlotte Elam M.D., Ph.D. [address] [place] [phone] Scheduled Referrals Name Type Priority Associated Order Schedule Diagnoses Covid immunization Outpatient Referral Routine Ex pected: office visit Booster 021 (Approximate), Expires: 03/06/2022 documented as of this encounter Visit Diagnoses Not on filedocumented in this encounter
--- OUTSIDE RECORDS SUMMARY | 2022-01-30 11:32 | XMS_ITS | Encounter Summary ---
:1960 Author Organization [facility] Address [address] [place] [address] Care Team Providers Name Role Phone Unavailable Primary Care Provider Unavailable Reason for Visit Appointment Request (Routine) - Closed Specialty Diagnoses / Procedures Referred By Contact Refer red To Contact Cardiovascular Disease Referral ID Status Reason Start Date Expiration Date Visits Requ ested Visits Authorized [id number] Closed 06/16/2019 06/15/2020 1 1 Encounter Details Date Type Department Care Team Description 06/16/2019 Nurse Only Division of Pediatric Abi Haley, Cardiology in [facility] [address] [facility] [address] [place] [address] [place] [phone] Social History Tobacco Use Types Packs/Day Years [...] or relatives? How often do you attend jainism or Never 2021 adventist services? Do you belong to any clubs or No 11/16/2021 organizations such as jainism groups, unions, fraternal or athletic groups, or [...] place to sleep or slept in a prison (including now)? Sex Assigned at Date Recorded Female 11/16/2021 11:51 AM CDT documented as of this encounter Progress Notes Abi Haley R.N. - 06/16/2019 10:00 AM CST #1 Facilitation of Comprehensive Arrhythmia and Cardiomyopathy Genetic Testing Panel On behalf of Dr. Simpson, I met with Robbie Miller, to facilitate genetic testing for the comprehensive cardiomyopathy and arrhythmia genetic testing panel offered through [facility]. I reviewed the nature of the testing which includes sequencing of genes which have been implicated in hereditary cardiomyopathies and arrhthymias. We discussed the three possible outcomes of the test; positive, negative, or a variant of uncertain significance that we may not be able to interpret. We discussed that there is a very high likelihood that variants of uncertain significance are likely to be found as part of this large testing panel. Most genetic cardiomyopathies and arrhythmias are inherited in an autosomal dominant pattern meaningthat only one of the patients two copies of a gene need to have a variant for risk of developing thecondition. If the patient is confirmed to have a variant predisposing to a cardiomyopathy or arrhythmia, it is possible the one of the parents could also be a carrier. Offspring of individuals with a variant would have a 50% chance of inheriting the variant. Confirming a variant in one of the genes, would help us to further clarify the patients diagnosis, and guide us in management. If a variant is identified, the variant becomes useful as a genetic markerto screen other family members. We discussed psychosocial implications for families who have genetictesting, as well as the insurance logistics. The patient provided verbal consent to proceed with the testing. The patient elected to enroll in [employer]'s Detect program. This panel will be provided free of charge with the understanding that [employer] reserves the right to share their de-identified information with third green party entities. and will bill the patient's insurance directly. [facility] will not be involved in the billing of this test. Theresults would be expected in approximately 2-4 weeks, and a member of our team will contact the family when these results become available to determine next steps. Abi Haley R.N. 06/16/19 10:59 AM HOSPICE ART THERAPIST ICE ART THERAPIST documented in this encounter Plan of Treatment Upcoming Encounters Date Type Specialty Care Team Description 02/03/2022 Clinical Communication Admitting/Central Scheduling 02/04/2022 Ancillary Procedure Ophthalmology Андрей mark M.D. [address] [place] [phone] 02/04/2022 Ancillary Procedure Ophthalmology Robby Coppola M.D. [address] [place] [phone] 02/04/2022 Ancillary Procedure Ophthalmology Robby Coppola M.D. [address] [place] [phone] 02/04/2022 Comprehensive Visit Ophthalmology Robby Coppola M.D. [address] [place] [phone] 02/06/2022 [facility] [address] [place] [phone] 02/07/2022 Comprehensive Visit Neurological Surgery Charlotte Elam M.D., Ph.D. [address] [place] [phone] documented as of this encounter Visit Diagnoses Diagnosis Prolonged QT Interval - Primary documented in this encounter
--- OUTSIDE RECORDS SUMMARY | 2022-01-30 11:32 | XMS_ITS | Encounter Summary ---
:1960 Author Organization [facility] Address [address] [place] [address] Care Team Providers Name Role Phone Unavailable Primary Care Provider Unavailable Encounter Details Date Type Department Care Team Description 03/08/2021 Orders Only RST PCP HLTH Nazia Herrmann M.D. [address] [place], [place] [phone] (Wo rk) Social History [...] or relatives? How often do you attend druze or Never 2021 lutheran services? Do you belong to any clubs or No 11/16/2021 organizations such as druze groups, unions, fraternal or athletic groups, or [...] place to sleep or slept in a correction (including now)? Sex Assigned at Date Recorded Female 11/16/2021 11:51 AM CDT documented as of this encounter Plan of Treatment Upcoming Encounters Date Type Specialty Care Team Description 02/03/2022 Clinical Communication Admitting/Central Scheduling 02/04/2022 Ancillary Procedure Ophthalmology Андрей mark M.D. [address] [place] [phone] 02/04/2022 Ancillary Procedure Ophthalmology Robby Coppola M.D. [address] [place] [phone] 02/04/2022 Ancillary Procedure Ophthalmology Robby Coppola M.D. [address] [place] [phone] 02/04/2022 Comprehensive Visit Ophthalmology Robby Coppola M.D. [address] [place] [phone] 02/06/2022 [facility] [address] [place] [phone] 02/07/2022 Comprehensive Visit Neurological Surgery Charlotte Elam M.D., Ph.D. [address] [place] [address] [phone] documented as of this encounter Visit Diagnoses Not on filedocumented in this encounter
--- OUTSIDE RECORDS SUMMARY | 2022-01-30 11:32 | XMS_ITS | Encounter Summary ---
:1960 Author Organization [facility] Address [address] [place] [address] Care Team Providers Name Role Phone Unavailable Primary Care Provider Unavailable Reason for Referral Outpatient (Routine) - Closed Specialty Diagnoses / Procedures Referred By Contact Refer red To Contact Diagnoses Long QT Syndrome Garland Simpson, [facility] Procedures Echo Transthoracic (TTE) - Adult Congenital M.Anish, Ph.D. [address] [place] [phone] Referral ID Status Reason Start Date Expiration Date Visits Requ ested Visits Authorized [id number] Closed 03/30/2019 03/29/2020 1 1 utpatient (Routine) - Closed Specialty Diagnoses / Procedures Referred By Contact Refer red To Contact Diagnoses Long QT Syndrome Garland Simpson M.D., [facility] Procedures Cardiopulmonary (VO2) Exercise Test Ph.D. [address] [place] [phone] Referral ID Status Reason Start Date Expiration Date Visits Requ ested Visits Authorized [id number] Closed 03/30/2019 03/29/2020 1 1 utpatient (Routine) - Closed Specialty Diagnoses / Procedures Referred By Contact Refer red To Contact Diagnoses Long QT Syndrome Garland Simpson M.D., Procedures ECG Heart rhythm monitor (Holter) Ph.D. [address] [place] [phone] Referral ID Status Reason Start Date Expiration Date Visits Requ ested Visits Authorized [id number] Closed 03/30/2019 03/29/2020 1 1 utpatient (Routine) - Closed Specialty Diagnoses / Procedures Referred By Contact Refer red To Contact Diagnoses Long QT Syndrome Garland Simpson M.D., [facility] Procedures ECG 12 Lead Ph.D. [address] [place], [place] [phone] Referral ID Status Reason Start Date Expiration Date Visits Requ ested Visits Authorized [id number] Closed 03/30/2019 03/29/2020 1 1 utpatient (Routine) - Closed Specialty Diagnoses / Procedures Referred By Contact Refer red To Contact Diagnoses Long QT Syndrome Garland Simpson M.D., [facility] Procedures ECG 12 Lead Ph.D. [address] [place], [place] [phone] Referral ID Status Reason Start Date Expiration Date Visits Requ ested Visits Authorized [id number] Closed 03/30/2019 03/29/2020 1 1 CODER OPERATOR Encounter Details Date Type Department Care Team Description 03/29/2019 Orders Only Division of Pediatric Garland Simpson wilman QT Syndrome Cardiology loretta Parker M.D., Ph.D. (Primary Dx) [place], [place] [address] [facility] [address] [place] [phone] Social History Tobacco Use Types Packs/Day Years [...] or relatives? How often do you attend religion or Never 2021 adventist services? Do you belong to any clubs or No 11/16/2021 organizations such as religion groups, unions, fraternal or athletic groups, or [...] place to sleep or slept in a detention (including now)? Sex Assigned at Date Recorded Female 11/16/2021 11:51 AM CDT documented as of this encounter Plan of Treatment Upcoming Encounters Date Type Specialty Care Team Description 02/03/2022 Clinical Communication Admitting/Central Scheduling 02/04/2022 [facility] [address] [place] [phone] 02/04/2022 Ancillary Procedure Ophthalmology Robby Coppola M.D. [address] [place] [phone] 02/04/2022 Ancillary Procedure Ophthalmology Robby Coppola M.D. [address] [place] [phone] 02/04/2022 Comprehensive Visit Ophthalmology Robby Coppola M.D. [address] [place] [phone] 02/06/2022 [facility] [address] [place] [phone] 02/07/2022 Comprehensive Visit Neurological Surgery Charlotte Elam M.D., Ph.D. [address] [place] [phone] documented as of this encounter Results HOLTER MONITOR - IN CLINIC HOG CONFINEMENT SYSTEM MANAGER (06/16/2019 11:05 AM DATA CODER OPERATOR) [facility] gist Method Time Signature Min Heart Rate 68 bpm HOLTER SENTINEL Analysis Date , HOLTER SENTINEL Mean Heart 82 bpm HOLTER Rate SENTINEL Bradycardia 0 count HOLTER Runs SENTINEL SVE Max Per [id number] HOLTER Hour Time SENTINEL Holter Pauses 0 count HOLTER SENTINEL Max Heart Rate 106 bpm HOLTER SENTINEL SVT Runs 0 count HOLTER SENTINEL Min Heart Rate HOLTER Time SENTINEL VT Runs 0 count HOLTER SENTINEL Max Heart Rate [id number] HOLTER Time SENTINEL AF Count 0 count HOLTER SENTINEL VE Percent 0 percent HOLTER Beats SENTINEL VE Total Beats 19 count HOLTER SENTINEL Recording Date HOLTER SENTINEL VE Max Per 5 count HOLTER Hour SENTINEL SVE Total 14 count HOLTER Beats SENTINEL SVE Max Per 3 count HOLTER Hour SENTINEL VE Max Per [id number] HOLTER Hour Time SENTINEL Tachycardia 0 count HOLTER Runs SENTINEL SVE Percent 0 percent HOLTER Beats SENTINEL Specimen (Source) Anatomical Collection Method Collection Time Re ceived Time Location / / Volume Laterality 06/16/2019 11:01 AM DATA CODER OPERATOR Narrative This result has an attachment that is no t available. Garland Simpson M.D., Ph.D. CV CARDIAC SERVICES PRO CEDURES Performing Organization Address City/State/ZIP Code Phon e Number HOLTER SENTINEL HOLTER SENTINEL NA ECG 12 Lead (06/16/2019 7:30 AM DATA CODER OPERATOR) P athologist Signature Ventricular Rate 86 BPM MUSE ECG/Min CT Interval 142 ms MUSE QRSD Interval 90 ms MUSE QT Interval 406 ms MUSE QTC Interval 485 ms MUSE P [place] 69 degrees MUSE R [place] 2 degrees MUSE T Wave [place] 101 degrees MUSE Specimen Anatomical Collection Method Collection Time Receive d Time (Source) Location / / Volume Laterality 06/16/2019 7:30 AM 0 7:45 DATA CODER OPERATOR AM DATA CODER OPERATOR Impressions MUSE - 06/16/2019 7:45 AM DATA CODER OPERATOR Normal sinus rhythm Nonspecific ST and T wave abnormality Prolonged QT When compared with ECG of 15-JUN-2019 14 :19, No significant change was found Reviewed by SATURNINO Chowdary Narrative This result has an attachment that is no t available. Procedure Note Lonnie Waddell M.D. - 06/16/2019Formatti ng of this note might be different from the original. IMPRESSION: Normal sinus rhythm Nonspecific ST and T wave abnormality Prolonged QT When compared with ECG of 15-JUN-2019 14 :19, No significant change was found Reviewed by SATURNINO Chowdary Garland Simpson M.D., Ph.D. ECG ORDERABLES Performing Organization Address City/State/ZIP Code Phon e Number MUSE MUSE NA (TTE) 2D ECHO DOPPLER COLOR (06/15/2019 4:09 PM DATA CODER OPERATOR) [facility] Method Time Signature Ejection Fraction 64 MC CV EIMS Sinus of Valsalva 32 MC CV EIMS Mid-Ascending Aorta 38 MC CV EIMS LV Mass Index 58 MC CV EIMS LV End-Diastolic 45 MC CV EIMS Diameter LV End-Systolic 27 MC CV EIMS Diameter MV E Velocity 0.6 MC CV EIMS MV A Velocity 0.8 MC CV EIMS MV E/A 0.75 MC CV EIMS MV e' Velocity 0.08 MC CV EIMS Medial MV e' Velocity 0.09 MC CV EIMS Lateral MV E/e' Medial 7.5 MC CV EIMS MV E/e' Lateral 6.7 MC CV EIMS Left ventricular 32 MC CV EIMS stroke volume index Cardiac Output 5.64 MC CV EIMS Cardiac Index 2.89 MC CV EIMS LV Interventricular 8 MC CV EIMS Septal Wall Thickness LV Posterior Wall 8 MC CV EIMS Thickness Tricuspid Annular S? 0.13 MC CV EIMS TR Vmax 2.40 MC CV EIMS RA Pressure 5 MC CV EIMS RV Systolic Pressure 28 MC CV EIM S Aortic valve area 3.10 MC CV EIMS LA Volume Index 24 MC CV EIMS Anatomical Region Laterality Modality Echocardiography Specimen (Source) Anatomical Collection Method Collection Time Re ceived Time Location / / Volume Laterality 06/15/2019 3:18 PM DATA CODER OPERATOR Impressions 06/15/2019 5:07 PM DATA CODER OPERATOR LEFT VENTRICLE: ??Normal left ventricular wall thickness. ??ATRIA: ??Normal left atrial size. Left atrial volume index 24 ml/m^2. ??No rmal right atrial size. ??CARDIAC VALVES: ??Trileaflet aortic valve. ??Thickened aortic valve. ??No aortic valve regurgitation. ??Thickened mitral valve. No mitral valve regurgitation. ??Normal pulmonary valve. ??Trivial pulmonary valve regurgitation. ??Normal tricuspid valve. ??Trivial tricuspid valve regurgitation. ??OTHER ECHO FINDINGS: ??Normal ascending aorta diame ter. ??Abdominal aorta incompletely visualized. ??Normal abdominal aorta Doppler flow pattern. ?? No atrial level shunt by color flow imaging. ??No intracardiac mass or thrombus, but the l eft atrial appendage cannot be visualized adequately with transthoracic echo to exclude throm bus in this location. ??No pericardial effusion. For the complete report, see the [employer] Documents below. Narrative 06/15/2019 5:07 PM DATA CODER OPERATOR For the complete report, see the [employer] Documents below. Final Impressions 1. Normal left ventricular chamber size. ??Calculated ejection fraction 64%. 2. Grade 1/4 left ventricular diastolic dysfunction, consistent with low to normal left ventricular filling pressure. 3. No regional wall motion abnormalities . 4. Normal right ventricular chamber size and systolic function. 5. Estimated right ventricular systolic pressure 28 mmHg (systolic blood pressure 124 mmHg). 6. No significant valvular heart disease . 7. Normal inferior vena cava size with n ormal inspiratory collapse (>50%). Procedure Note Kiesha Aguirre M.D. - 06/15/2019 For the complete report, see the [employer] Documents below. Final Impressions 1. Normal left ventricular chamber size. Calculated ejection fraction 64%. 2. Grade 1/4 left ventricular diastolic dysfunction, consistent with low to normal left ventricular filling pressure. 3. No regional wall motion abnormalities . 4. Normal right ventricular chamber size and systolic function. 5. Estimated right ventricular systolic pressure 28 mmHg (systolic blood pressure 124 mmHg). 6. No significant valvular heart disease . 7. Normal inferior vena cava size with n ormal inspiratory collapse (>50%). Findings LEFT VENTRICLE: Normal left ventricular wall thickness. ATRIA: Normal left atrial size. Left atrial volume index 24 ml/m^2. Norm al right atrial size. CARDIAC VALVES: Trileaflet aortic valve. Thickened aortic valve. No aortic valve regurgitation. Thickened mitral valve. No mitral valve regurgitation. Normal p ulmonary valve. Trivial pulmonary valve regurgitation. Normal tricuspid valve. T rivial tricuspid valve regurgitation. OTHER ECHO FINDINGS: Normal ascending aorta diamete r. Abdominal aorta incompletely visualized. Normal abdominal aorta Doppler flow pattern. No atrial level shunt by color flow imaging. No intracardiac mass or thrombus, but the l eft atrial appendage cannot be visualized adequately with transthoracic echo to exclude throm bus in this location. No pericardial effusion. For the complete report, see the [employer] Documents below. Garland Simpson M.D., Ph.D. CV ECHO PROCEDURES ECG 12 Lead (06/15/2019 2:19 PM DATA CODER OPERATOR) P athologist Signature Ventricular Rate 97 BPM MUSE ECG/Min CT Interval 138 ms MUSE QRSD Interval 88 ms MUSE QT Interval 384 ms MUSE QTC Interval 487 ms MUSE P [place] 61 degrees MUSE R [place] 23 degrees MUSE T Wave [place] 162 degrees MUSE Specimen Anatomical Collection Method Collection Time Receive d Time (Source) Location / / Volume Laterality 06/15/2019 2:19 PM 0 2:29 DATA CODER OPERATOR PM DATA CODER OPERATOR Impressions MUSE - 06/15/2019 2:29 PM DATA CODER OPERATOR Normal sinus rhythm T wave abnormality, consider inferolater al ischemia Prolonged QT No previous ECGs available Reviewed by SATURNINO Chowdary Narrative This result has an attachment that is no t available. Procedure Note Nathan Saldana M.D. - 06/15/2019Formatt ing of this note might be different from the original. IMPRESSION: Normal sinus rhythm T wave abnormality, consider inferolater al ischemia Prolonged QT No previous ECGs available Reviewed by SATURNINO Chowdary Garland Simpson M.D., Ph.D. ECG ORDERABLES Performing Organization Address City/State/ZIP Code Phon e Number MUSE MUSE NA CARDIOPULMONARY (VO2) EXERCISE TEST (06/15/2019 1:27 PM DATA CODER OPERATOR) Specimen (Source) Anatomical Collection Method Collection Time Re ceived Time Location / / Volume Laterality 06/15/2019 12:16 PM DATA CODER OPERATOR Narrative [facility] CV MERGE - 06/15/2019 4:10 PM DATA CODER OPERATOR This result has an attachment that is no t available. See PDF For Result Procedure Note Andrade Collire M.D. - 06/15/2019Forma tting of this note might be different from the original. See PDF For Result Garland Simpson M.D., Ph.D. CV STRESS PROCEDURES Performing Organization Address City/State/ZIP Code Phon e Number MC CV MERGE MC CV MERGE NA documented in this encounter Visit Diagnoses Diagnosis Long QT Syndrome - Primary Long QT Syndrome Long QT Syndrome documented in this encounter
--- OUTSIDE RECORDS SUMMARY | 2022-01-30 11:32 | XMS_ITS | Encounter Summary ---
:1960 Author Organization [facility] Address [address] [place] [address] Care Team Providers Name Role Phone Elsewhere, Pcp Primary Care Provider Unavailable Encounter Details Date Type Department Care Team Description 01/22/2022 Documentation Department of Cardiovascular [facility], Medicine in [facility] [address] [facility] [address] [place] [phone] Social History Tobacco Use Types Packs/Day Years [...] or relatives? How often do you attend methodist or Never 2021 caodaism services? Do you belong to any clubs or No 11/16/2021 organizations such as methodist groups, unions, fraternal or athletic groups, or [...] or slept in a chcf (including now)? Education Answer Date Recorded What [...] Communication Admitting/Central Scheduling 02/04/2022 [facility] [address] [place] [phone] 02/04/2022 Ancillary Procedure Ophthalmology Robby Coppola M.D. [address] [place] [phone] 02/04/2022 Ancillary Procedure Ophthalmology Robby Coppola M.D. [address] [place] [address] [phone] 02/04/2022 Comprehensive Visit Ophthalmology Robby Coppola M.D. [address] [place] [phone] 02/06/2022 Office Visit Neurology Андрей mark M.D. [address] [place] [phone] 02/07/2022 Comprehensive Visit Neurological Surgery Peris Celda, Charlotte, M.D., Ph.D. [address] [place] [phone] documented as of this encounter Visit Diagnoses Not on filedocumented in this encounter Care Teams Team Cdl Driver Relationship Specialty Start Date End Date Elsewhere, Pcp PCP - General Internal Medicine 11/19/21 documented as of this encounter
--- OUTSIDE RECORDS SUMMARY | 2022-01-30 11:32 | XMS_ITS | Encounter Summary ---
:1960 Author Organization [facility] Address [address] [place] [address] Care Team Providers Name Role Phone Unavailable Primary Care Provider Unavailable Reason for Referral Outpatient (Routine) - Closed Specialty Diagnoses / Procedures Referred By Contact Refer red To Contact Diagnoses Long QT Syndrome Garland Simpson, [facility] Procedures Echo Transthoracic (TTE) - Adult Congenital Santiago, Ph.D. 200 [place], [place] [phone] Referral ID Status Reason Start Date Expiration Date Visits Requ ested Visits Authorized [id number] Closed 03/30/2019 03/29/2020 1 1 MIXER Reason for Visit Outpatient (Routine) - Closed Specialty Diagnoses / Procedures Referred By Contact Refer red To Contact Diagnoses Long QT Syndrome Garland Simpson, [facility] Procedures Echo Transthoracic (TTE) - Adult Congenital Santiago, Ph.D. [address] [place] [phone] Referral ID Status Reason Start Date Expiration Date Visits Requ ested Visits Authorized [id number] Closed 03/30/2019 03/29/2020 1 1 Encounter Details Date Type Department Care Team Description 06/15/2019 Hospital Encounter Department of Jacob Simpson QT Syndrome Cardiovascular Diseases Garland Parker M.D., in [facility] Ph.D. 200 [facility] [address] [place] [phone] Social History Tobacco Use Types Packs/Day Years [...] or relatives? How often do you attend mosque or Never 2021 adventist services? Do you belong to any clubs or No 11/16/2021 organizations such as mosque groups, unions, fraternal or athletic groups, or [...] place to sleep or slept in a residential (including now)? Sex Assigned at Date Recorded Female 11/16/2021 11:51 AM CDT documented as of this encounter Medications at Time of Discharge Medication Sig Dispensed Refills Start Date End Date lisinopril-hydroCHLOROthiazi Take 1 tablet by 0 0 06/23/2017 de (PRINZIDE,ZESTORETIC) mouth daily. 10-12.5 mg per tablet FLUoxetine (PROzac) 40 mg Take 40 mg by 0 017 11/19/2021 capsule mouth daily. lisdexamfetamine (VYVANSE) Take 40 mg by 0 201811/19/2021 40 mg capsule mouth daily. documented as of this encounter Plan of Treatment Upcoming Encounters Date Type Specialty Care Team Description 02/03/2022 Clinical Communication Admitting/Central Scheduling 02/04/2022 Ancillary Procedure Ophthalmology Андрей mark M.D. [address] [place] [phone] 02/04/2022 Ancillary Procedure Ophthalmology Robby Coppola M.D. [address] [place] [phone] 02/04/2022 Ancillary Procedure Ophthalmology Robby Coppola M.D. [address] [place] [phone] 02/04/2022 Comprehensive Visit Ophthalmology Robby Coppola M.D. [address] [place] [phone] 02/06/2022 [facility] [address] [place] [phone] 02/07/2022 Comprehensive Visit Neurological Surgery Charlotte Elam M.D., Ph.D. [address] [place] [phone] documented as of this encounter Procedures Procedure Name Priority Date/Time Associated Diagnosis Comme nts (TTE) 2D ECHO Routine 06/15/2019 4:09 PM Long QT Syndrome Resu lts for this DOPPLER COLOR CD MIXER procedure are in the results section. documented in this encounter Results (TTE) 2D ECHO DOPPLER COLOR (06/15/2019 4:09 PM CD MIXER) [facility] Method Time Signature Ejection Fraction 64 MC [...] / / Volume Laterality 06/15/2019 3:18 PM CD MIXER Impressions 06/15/2019 5:07 PM CD MIXER LEFT VENTRICLE: ??Normal left ventricular wall thickness. [...] effusion. For the complete report, see the [employer] Documents below. Narrative 06/15/2019 5:07 PM CD MIXER For the complete report, see the [employer] Documents below. Final Impressions 1. Normal left [...] 06/15/2019 For the complete report, see the [employer] Documents below. Final Impressions 1. Normal left [...] Garland Simpson M.D., Ph.D. CV ECHO PROCEDURES documented in this encounter Visit Diagnoses Diagnosis Long QT Syndrome documented in this encounter
--- OUTSIDE RECORDS SUMMARY | 2022-01-30 11:32 | XMS_ITS | Encounter Summary ---
:1960 Author Organization [facility] Address [address] [place] [address] Care Team Providers Name Role Phone Unavailable Primary Care Provider Unavailable Reason for Referral Outpatient (Routine) - Closed Specialty Diagnoses / Procedures Referred By Contact Refer red To Contact Diagnoses Long QT Syndrome Garland Simpson M.D., [facility] Procedures Cardiopulmonary (VO2) Exercise Test Ph.D. [address] [place], [place] [phone] Referral ID Status Reason Start Date Expiration Date Visits Requ ested Visits Authorized [id number] Closed 03/30/2019 03/29/2020 1 1 TEACHER Reason for Visit Outpatient (Routine) - Closed Specialty Diagnoses / Procedures Referred By Contact Refer red To Contact Diagnoses Long QT Syndrome Garland Simpson M.D., [facility] Procedures Cardiopulmonary (VO2) Exercise Test Ph.D. [address] [place] [phone] Referral ID Status Reason Start Date Expiration Date Visits Requ ested Visits Authorized [id number] Closed 03/30/2019 03/29/2020 1 1 Encounter Details Date Type Department Care Team Description 06/15/2019 Hospital Encounter Department of Jacob Simpson QT Syndrome Cardiovascular Diseases Garland Parker M.D., in [facility] seed potato cutter Ph.D. [address] [facility] [address] [place] [phone] Social History Tobacco Use Types Packs/Day Years [...] or relatives? How often do you attend tenriism or Never 2021 moravian services? Do you belong to any clubs or No 11/16/2021 organizations such as tenriism groups, unions, fraternal or athletic groups, or [...] Communication Admitting/Central Scheduling 02/04/2022 Ancillary Procedure Ophthalmology [facility] mark M.D. [address] [place] [phone] 02/04/2022 Ancillary Procedure Ophthalmology Robby Coppola M.D. [address] [place] [phone] 02/04/2022 Ancillary Procedure Ophthalmology Robby Coppola M.D. [address] [place] [phone] 02/04/2022 Comprehensive Visit Ophthalmology Robby Coppola M.D. [address] [place] [phone] 02/06/2022 [facility] [address] [place] [phone] 02/07/2022 Comprehensive Visit Neurological Surgery Charlotte Elam M.D., Ph.D. [address] [place] [phone] documented as of this encounter Procedures Procedure Name Priority Date/Time Associated Comments Diagnosis CARDIOPULMONARY (VO2) Routine 06/15/2019 1:27 Long QT Syndrome Results for this EXERCISE TEST PM YOGA TEACHER procedure are in the results section. documented in this encounter Results CARDIOPULMONARY (VO2) EXERCISE TEST (06/15/2019 1:27 PM YOGA TEACHER) Specimen (Source) Anatomical Collection Method Collection Time Re ceived Time Location / / Volume Laterality 06/15/2019 12:16 PM YOGA TEACHER Narrative [facility] CV MERGE - 06/15/2019 4:10 PM YOGA TEACHER This result has an attachment that is no t available. See PDF For Result Procedure Note Andrade Collier M.D. - 06/15/2019Forma tting of this note might be different from the original. See PDF For Result Garland Simpson M.D., Ph.D. CV STRESS PROCEDURES Performing Organization Address City/State/ZIP Code Phon e Number MC CV MERGE [facility] CV MERGE NA documented in this encounter Visit Diagnoses Diagnosis Long QT Syndrome documented in this encounter
--- OUTSIDE RECORDS SUMMARY | 2022-01-30 11:32 | XMS_ITS | Encounter Summary ---
:1960 Author Organization [facility] Address [address] [place] [address] Care Team Providers Name Role Phone Elsewhere, Pcp Primary Care Provider Unavailable Reason for Visit Reason Comments Pre-visit Testing Orders Appointment Encounter Details Date Type Department Care Team Description 11/20/2021 Clinical Department of [place] Pre-visit Test ing Communication Ophthalmology in Robby Germain M.D. Orders; Appointment Jesica Carrillo a [address] [place] [address] [address], [place] [phone] Social History Tobacco Use Types Packs/Day Years [...] or relatives? How often do you attend alevism or Never 2021 restorationism services? Do you belong to any clubs or No 11/16/2021 organizations such as alevism groups, unions, fraternal or athletic groups, or [...] place to sleep or slept in a fci (including now)? Education Answer Date Recorded What is the highest level of school Bachelor's degree (e.g., BA, AB, 11/16/2021 you have completed or the highest BS) degree you have received? Sex Assigned at Date Recorded Female 11/16/2021 11:51 AM CDT documented as of this encounter Miscellaneous Notes Telephone Encounter - Lacey Driver, C.O.A. - 11/20/2021 10:58 AM CDT Orders placed for pupil check before dilation and OCT Cirrus. Thank you, Kate Telephone Encounter - Dinah Aldana - 11/20/2021 10:40 AM CDT Patient scheduled with [facility] for Meningioma brain. 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 There is a visual field 24-[address] order for oct cirrus. Thank you, Dinah documented in this encounter Plan of Treatment Upcoming Encounters Date Type Specialty Care Team Description 02/03/2022 Clinical Communication Admitting/Central Scheduling 02/04/2022 Ancillary Procedure Ophthalmology Андр[place] [phone] 02/04/2022 Ancillary Procedure Ophthalmology oRbby Coppola M.D. [address] [place] [address] [phone] 02/04/2022 Ancillary Procedure Ophthalmology Robby Coppola M.D. [address] [place] [address] [phone] 02/04/2022 Comprehensive Visit Ophthalmology Robby Coppola M.D. [address] [place] [address] [phone] 02/06/2022 Office Visit Neurology [facility], Андрей Richardson M.D. [address] [place] [address] [phone] 02/07/2022 Comprehensive Visit Neurological Surgery Charlotte Elam M.D., Ph.D. [address] [place] [phone] Scheduled Orders Name Type Priority Associated Diagnoses Order S chedule Optical Coherence Ophthalmology Routine Meningioma Brain Expec panfilo: Tomography - Optic Nerve (HCC) - OU - Both Eyes (Approximat e), Expires: 05/19/2022 Ophthalmology Pupil Test Ophthalmology Routine Meningioma Brai n Expected: (HCC) 11/20/2021 (Approximate), Expires: 05/19/2022 documented as of this encounter Visit Diagnoses Diagnosis Meningioma Brain (HCC) - Primary documented in this encounter Care Teams Duco Polisher Relationship Specialty Start Date End Date Elsewhere, Pcp PCP - General Internal Medicine 11/19/21 documented as of this encounter
--- OUTSIDE RECORDS SUMMARY | 2022-01-30 11:32 | XMS_ITS | Encounter Summary ---
:1960 Author Organization [facility] Address [address] [place] [phone] Care Team Providers Name Role Phone Elsewhere, Pcp Primary Care Provider Unavailable Reason for Visit Reason Comments Pre-visit Intake Encounter Details Date Type Department Care Team Description 11/19/2021 Clinical Communication Visit Review in Pr e-visit Intake [place], [place] 200 [place] [address] Social History Tobacco Use Types Packs/Day Years Used Date Smoking Tobacco: Former Cigarettes 04/1977 - 04/27/2016 Smokeless Tobacco: Never Tobacco Cessation: Counseling Given: Not Answered Comments: Half pack daily on average whe [...] or relatives? How often do you attend anglican or Never 2021 rastafari services? Do you belong to any clubs or No 11/16/2021 organizations such as anglican groups, unions, fraternal or athletic groups, or [...] place to sleep or slept in a senior living (including now)? Education Answer Date Recorded What [...] Ancillary Procedure Ophthalmology Андрей mark M.D. [address] [place] [address] [phone] 02/04/2022 Ancillary Procedure Ophthalmology Robby Coppola M.D. [address] [place] [address] [phone] 02/04/2022 Ancillary Procedure Ophthalmology Robby Coppola M.D. [address] [place] [address] [phone] 02/04/2022 Comprehensive Visit Ophthalmology Robby Coppola M.D. [address] [place] [address] [phone] 02/06/2022 Office Visit Neurology Андрей mark M.D. [address] [place] [phone] 02/07/2022 Comprehensive Visit Neurological Surgery Charlotte Elam M.D., Ph.D. [address] [place] [phone] documented as of this encounter Visit Diagnoses Not on filedocumented in this encounter Care Teams Oil Well Fishing Tool Operator Relationship Specialty Start Date End Date Elsewhere, Pcp PCP - General Internal Medicine 11/19/21 documented as of this encounter
--- OUTSIDE RECORDS SUMMARY | 2022-01-30 11:32 | XMS_ITS | Encounter Summary ---
:1960 Author Organization [facility] Address [address] [place] [address] Care Team Providers Name Role Phone Unavailable Primary Care Provider Unavailable Reason for Visit Reason Comments Genetic Testing Results Encounter Details Date Type Department Care Team Description 07/15/2019 Documentation Department of Ailin Garcia, Genetic Testing Medical Genetics in .[place]. [place], [place] [address] [place] [phone] Social History Tobacco Use Types Packs/Day Years [...] do you attend temple or Never 2021 judaism services? Do you belong to any clubs [...] place to sleep or slept in a care home (including now)? Sex Assigned at Date Recorded Female 11/16/2021 11:51 AM CDT documented as of this encounter Progress Notes Ailin Garcia M.S., [facility] - 07/15/2019 2:44 PM CDT CHIEF COMPLAINT Patient not seen. Phone call to discuss genetic test results. HISTORY OF PRESENT ILLNESS Ms. Robbie Miller was [facility] by Dr. Simpson on June 16, 2019 due to her diagnosis of prolonged QT. At that visit, she elected to pursue the Arrhythmia and Cardiomyopathy Comprehensive Panel through [facility]. These results were discussed with the patient by phone on behalf of Dr. Simpson. IMPRESSION/REPORT/PLAN RESULTS Ms. Miller elected to pursue the Arrhythmia and Cardiomyopathy Comprehensive Panel through [facility]. This genetic testing included sequence analysis and gross deletion/duplication analysis of 150 genes associated with hereditary cardiovascular disease. Please see test report for full gene list and methods. No pathogenic or likely pathogenic variants were identified in genes associated with long QT syndrome (LQTS). The fact that no mutations were detected in the genes associated with LQTS for which Ms. Miller was tested is reassuring. However, the fact that a mutation was not identified does not eliminate thepossibility that she has a genetic susceptibility to LQTS. Genetic testing has less than 100% sensitivity, meaning there is a small possibility that a mutation exists in one of the genes analyzed whichcannot be identified by current testing methodology. It is also possible that mutations in LQTS genes which have not yet been discovered may be contributing to her personal history. Dr. Simpson indicated that the patient is okay to continue on her current medications as long as her QTc interval remains under 500ms. He also recommends electrocardiogram every 6 months in follow-up. 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 Mosaic variants are those that are only present in a subset of cells. It is possible that this variant results from an error in the sequencing technology and is not actually present in the patient. This cannot be differentiated currently from constitutional mosaicism (when the variant occurred sometime in embryonic development resulting in a cell line with the variant potentially dispersed among manytypes of tissues) and somatic mosaicism (when the variant is only present in a small amount of cellsusally confined to 1 tissue type, i.e. blood). As these possibilities cannot be sorted out with the existing testing we discussed recommendations for follow-up (see below). First, I think it is important to acknowledge that this variant and gene have not been associated previously with prolonged QT. Therefore, this is purely an incidental finding. The DMD gene is located on the X chromosome. Males have 1 copy of the X chromosome and a copy of the Y chromosome; while females have 2 copies of the X chromosome. Therefore, males have 1 copy of the DMD gene, while females have 2. This is important to understand as typically males present more severely when they carry pathogenic variannts in this gene. Males with pathogenic variants in the DMD gene have either Duchenne muscular dystrophy or Gonzalez muscular dystrophy, which are characterized by progressive loss of skeletal muscle function. With Duchenne muscular dystrophy this tends to occur in motor vehicle or caravan salesperson resulting inshortened life expectancy. With Gonzalez muscular dystrophy this can be more variable and occur at different ages. Woman who have pathogenic variants in the DMD gene tend to be unaffected from a muscular perspective. Some woman report having minor skeletal muscle concerns. However, there is known risk for female carriers to have elevated risks of developing dilated cardiomyopathy (DCM). Based on this genetic finding, it is recommended that the patient undergo echocardiogram every 5 years to screen for DCM. She recently had a normal echocardiogram so she would not require another evaluation until 2024, unless concerns arise in the interim. Given the possibility that this pathogenic DMD variant could be present in the germline (egg cells),it is important to test Ms. Miller's daughter to determine whether she carries this variant and could pass it onto her children. She is currently 37 and has three sons (ages 14, 10, and 8mo). I encourage her to meet with a genetic counselor to discuss this further. She should bring a copy of Ms. Miller's results to her visit. To find a genetic counselor, she can visit: [email or web address]. If she would like to come to [facility] for this, she can contact my appointment scheduler at . At this time, other family members like siblings and parents of Ms. Miller do not require testing for this variant. Finally, Ms. Miller does not have any skeletal muscle concerns, but should that emerge as a concern, obtaining a CK level could be appropriate to determine if this variant is affecting skeletal muscle. 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 To review, a VUS is a change in the spelling of a gene for which the clinical implications are unknown. It could be a harmless change in the DNA (a benign variant) that has no clinical significance, or it could be aharmful change (a pathogenic mutation). The VUS identified was in the LMNA gene and called [id number]. Pathogenic mutations in the LMNA gene cause LMNA-related disorders such as dilated cardiomyopathy, familial lipodystrophy, and others. However, at this time there is not enough information to determine the significance of this variant. It is not recommended to change medical management based on a VUS. Additionally, this result should not be used to test other family members. If the laboratory changes the classification of this variant over time, they will issue a new report and I will contact thepatient. PLAN It is recommended that Ms. Miller contact our clinic if there are changes to her personal or family history, as this information may change our genetic testing recommendations. It was a pleasure to talk with Ms. Miller. She is welcome to contact me with any questions. documented in this encounter Plan of Treatment Upcoming Encounters Date Type Specialty Care Team Description 02/03/2022 Clinical Communication Admitting/Central Scheduling 02/04/2022 Ancillary Procedure Ophthalmology Андрей Gil M.D. 200 [place] [phone] 02/04/2022 Ancillary Procedure Ophthalmology Robby Coppola M.D. 200 [place] [phone] 02/04/2022 Ancillary Procedure Ophthalmology Robby Coppola M.D. [address] [place] [phone] 02/04/2022 Comprehensive Visit Ophthalmology Robby Coppola M.D. [address] [place] [phone] 02/06/2022 [facility] [address] [place] [phone] 02/07/2022 Comprehensive Visit Neurological Surgery Charlotte Elam M.D., Ph.D. [address] [place] [phone] documented as of this encounter Visit Diagnoses Not on filedocumented in this encounter
--- OUTSIDE RECORDS SUMMARY | 2022-01-30 11:32 | XMS_ITS | Clinical Summary ---
:1960 Author Organization [facility] Address [address] [place] [address] Care Team Providers Name Role Phone Elsewhere, Pcp Primary Care Provider Unavailable Source Comments Patient records contain information from all sites at [facility]. For routine questions regarding patient records, call [phone] during business hours, M-F 8:00 AM - 5:00 PM Central Time. Record requests for emergency care only can be directed to [phone] at any time.[facility] Allergies Active Allergy Reactions Severity Noted Date Comments Varenicline Other (see comments) 05/30/2008 PN: LW Reaction: nightmare PN: LW Reaction : nightmare Medications Medication Sig Dispensed Refills Start Date End Date Status lisinopril-hydroCHLOR Take 1 tablet by 0 06/23/2017 Active Othiazide mouth daily. (PRINZIDE,ZESTORETIC) 10-12.5 mg per tablet acetaminophen Take 2 capsules by 0 11/09/2021 Active (TYLENOL) 500 mg mouth as needed. capsule albuterol 90 Inhale 2 puffs as 0 10/18/2020 Active mcg/actuation inhaler needed. budesonide (ENTOCORT TAKE 3 CAPSULES BY 0 10/14/2021 Active EC) 3 mg 24 hr MOUTH EVERY DAY IN capsule THE MORNING FOR 8 WEEKS buPROPion XL Take 1 tablet (150 0 10/31/2021 Active (WELLBUTRIN XL) 150 mg) by mouth every mg 24 hr tablet morning for 7 days, THEN 2 tablets (300 mg) every morning for 23 days. diazePAM (VALIUM) 2 Take 0.5-1 tablets 0 11/14/2021 Active mg tablet (1-2 mg) by mouth every 6 hours as needed (vertigo) triamcinolone Apply 1 application 0 08/29/2021 Active (KENALOG) 0.1 % cream topically 2 (two) times a day as needed. To affected area. Active Problems Problem Noted Date Prolonged QT Interval 06/16/2019 Encounters Date Type Specialty Care Team Description 01/29/2022 Orders Only Neurological Surgery Francia Loco julisa Brain L, R.NAndrew ([facility]) (Primary Dx) 01/22/2022 Documentation Cardiovascular Disease Naomy-Turnq Yessenia florez 11/20/2021 Comprehensive Visit Neurology [facility], Андрей Richardson, Meningio schuyler Castaneda M.D. ([facility]) (Primary Dx) 11/20/2021 Clinical Ophthalmology [place], Pre-visit Test ing Communication Robby Germain M.D. Orders; Appointment 11/19/2021 Clinical Admitting/Central Pre-visit Intake Communication Scheduling from Last 3 Months Family History Medical History Relation Name Comments Asthma Daughter Elsie Miller Stroke Maternal Grandfather Ruperto Cobb mid 60 ? s stroke Breast cancer Maternal Grandmother Yenny Cobb Dx early 70 ? s Diabetes Maternal Grandmother Yennyquincy Cobb Childhood d iabetes Colon polyps Mother Fátima Graves Depression Mother Fátima Graves Hyperlipidemia Mother Fátima Graves Hypertension Mother Fátima Graves Kidney disease Mother Fátima Graves Osteoporosis Mother Fátima Graves Thyroid disease Mother Fátima Graves Lung cancer Paternal Grandfather Nahum Miller Dx mid 60? s non smoker Relation Name Status Comments Daughter Elsie Miller Maternal Grandfather Ruperto Cobb Maternal Grandmother Yennyquincy Cobb Mother Fátima Graves Paternal Grandfather Nahum Miller Social History Tobacco Use Types Packs/Day Years Used Date Smoking Tobacco: Former Cigarettes 25 04/1977 - 04/27/2016 Smokeless Tobacco: Never Tobacco [...] or relatives? How often do you attend presybeterian or Never 2021 baptist services? Do you belong to any clubs or No 11/16/2021 organizations such as pres[employer]ian groups, unions, [employer] or athletic groups, or school groups? How [...] place to sleep or slept in a assisted (including now)? Education Answer Date Recorded What is the highest level of school Bachelor's degree (e.g., BA, AB, 11/16/2021 you have completed or the highest BS) degree you have received? Sex Assigned at Date Recorded Female 11/16/2021 11:51 AM CDT Last Filed Vital Signs Vital Sign Reading [...] Mass Index 30.92 11/20/2021 8:50 AM CDT Plan of Treatment Upcoming Encounters Date Type Specialty Care Team Description 02/03/2022 Clinical Communication Admitting/Central Scheduling 02/04/2022 Ancillary Procedure Ophthalmology Андрей mark M.D. [address] [place] [phone] 02/04/2022 Ancillary Procedure Ophthalmology Robby Coppola M.D. [address] [place] [address] [phone] 02/04/2022 Ancillary Procedure Ophthalmology Robby Coppola M.D. [address] [place] [address] [phone] 02/04/2022 Comprehensive Visit Ophthalmology Robby Coppola M.D. [address] [place] [address] [phone] 02/06/2022 Office Visit Neurology [facility], Андрей Richardson M.D. [address] [place] [address] [phone] 02/07/2022 Comprehensive Visit Neurological Surgery Charlotte Elam M.D., Ph.D. [address] [place] [phone] Health Maintenance Due Date Last Done Comments CT Colonography 1960 Cologuard 1960 Colonoscopy 1960 Colorectal Cancer 1960 Surveillance HIV Screening 1960 Hepatitis C Screening 1960 Mammogram 1960 Zoster Vaccines (1 of 2) 2009 Depression Screening 04/27/2021 (Annual PHQ-2) COVID-19 Vaccine (4 - 05/03/2021 03/08/2021, 08/09/2020, Booster for Moderna series) 07/12/2020 Influenza Vaccine (#1) 2022 03/14/2021, 01/24/2020 Creatinine Level 08/12/2022 08/12/2021, 06/28/2021, 03/14/2021, Additional history exists Potassium Level 08/12/2022 08/12/2021, 06/28/2021, 03/14/2021, Additional history exists Sodium Level 08/12/2022 08/12/2021, 06/28/2021, 03/14/2021, Additional history exists DTaP,Tdap,and Td Vaccines 04/04/2023 04/04/2013, 02/12/2009 (3 - Td or Tdap) Fasting Glucose for 08/12/2024 08/12/2021, 06/28/2021, Diabetes Screening 03/14/2021, Additional history exists Lipid (Cholesterol) 03/14/2026 03/14/2021, 03/01/2020, Screening 01/07/2018 Pneumococcal vaccine (0-64 Aged Out No lo nger eligible years) based on patient 's age to complete this topic Procedures Procedure Name Priority Date/Time Associated Diagnosis Comme nts OUTSIDE MR NEURO Routine 11/12/2021 12:25 PM Resu lts for this CDT procedure are i n the results section. OUTSIDE CT NEURO Routine 11/12/2021 11:10 AM Resu lts for this CDT procedure are i n the results section. OUTSIDE CT NEURO Routine 11/12/2021 11:05 AM Resu lts for this CDT procedure are i n the results section. OUTSIDE CT NEURO Routine 11/12/2021 11:00 AM Resu lts for this CDT procedure are i n the results section. from Last 3 Months Results MR BRAIN W/O W CONTRAST-Outside MR Neuro (11/12/2021 12:25 PM CDT) Specimen (Source) Anatomical Location Collection Method / Collectio n Time Received Time / Laterality Volume Narrative IIMS - 11/20/2021 9:07 AM CDT This order has been created and auto-finalized to support the import of outside images. If available, original i nterpretation can be found on the Media Tab in Chart Review, in Document V iewer, or as an image in QREADS. If a re-interpretation or overread is re quired please follow defined workflow. ?? Provider Not In System IMG MRI PROCEDURES Performing Organization Address City/State/ZIP Code Phon e Number IIMS IIMS NA CT Head W/O Contrast-Outside CT Neuro (11/12/2021 11:10 AM CDT)Only the most recent of3 resultswithin the time period is included. Specimen (Source) Anatomical Location Collection Method / Collectio n Time Received Time / Laterality Volume Narrative IIMS - 11/20/2021 9:29 AM CDT This order has been created and auto-finalized to support the import of outside images. If available, original i nterpretation can be found on the Media Tab in Chart Review, in Document V iewer, or as an image in QREADS. If a re-interpretation or overread is re quired please follow defined workflow. ?? Provider Not In System IMG CT PROCEDURES Performing Organization Address City/State/ZIP Code Phon e Number IIMS IIMS NA from Last 3 Months Insurance Payer Benefit Plan / Subscriber ID Effective Phone Address T ype Group Dates PREFERREDONE PREFERREDONE [id number] 2018-Pre [phone] PPO ADMINISTRATIVE ADMINISTRATIVE sent [id number] SERVICES SERVICES [place] [id number] Care Teams Tire Trucker Relationship Specialty Start Date End Date Elsewhere, Pcp PCP - General Internal Medicine 11/19/21
--- OUTSIDE RECORDS SUMMARY | 2022-01-30 11:34 | XMS_ITS | Encounter Summary ---
:1960 Author Organization [facility] Address [address] [facility] [place] [address] Care Team Providers Name Role Phone Francia Nair MD Primary Care Provider Francia Nair MD Unavailable Julieth Montes OD Unavailable [phone] Ip, Alber Vuong MD Unavailable Reason for Referral Care Coordination (Routine: Next available opening) - Pending Review Specialty Diagnoses / Procedures Referred By Contact Refer red To Contact Diagnoses Other specified counseling Francia Nair MD [address] [place] [address] Referral ID Status Reason Start Date Expiration Date Visits V isits Requested Authorized [id number] Pending 11/13/2021 11/13/2022 1 1 Review Encounter Details Date Type Department Care Team Description 11/13/2021 Orders Only [facility] Francia Nair MD Other specified Care Coordination [address] counseling [address] [place] [place] [phone] (Wo rk) Social History Tobacco Use Types Packs/Day Years Used Date Former Smoker Cigarettes 1 12/26/1977 - 0 05/10/2018 Smokeless Tobacco: Never Used Comments: 3/4 PPD- Alcohol Use Standard Drinks/Week Comments Yes 0 (1 standard drink = 0.6 oz pure ocassi onal 3-4 drinks per month alcohol) Alcohol Habits Answer Date Recorded How often do you have a drink 2-4 times a month 08/12/2021 containing alcohol? How many drinks containing alcohol do 1 or 2 you have on a typical day when you are drinking? How often do you have six or more Never 2021 drinks on one occasion? Comment: ocassional 3-4 drinks per month 06/14/19 19 Social Isolation Answer Date Recorded In a typical week, how many times do you talk on the Three t imes a week 08/12/2021 phone with family, friends, or neighbors? How often do you get together with friends or Once a week 08/12/2021 relatives? How often do you attend mormonism or cheondoism Never 08/12/2021 services? Do you belong to any clubs or organizations such as Yes 08/12/2021 mormonism groups, unions, fraternal or athletic groups, or school groups? How often do you attend meetings of the clubs or Not asked organizations you belong to? Are you now , , , , 08/12/2021 never or living with a partner? Physical Activity Answer Date Recorded On average, how many days per week do you engage in moderate to 3 days 08/12/2021 strenuous exercise (like walking fast, running, jogging, dancing, swimming, biking, or other activities that cause a light or heavy sweat)? On average, how many minutes do you engage in exercise at th is 60 min 08/12/2021 level? Stress Answer Date Recorded Do you feel stress - tense, restless, nervous, or Only a lit tle 08/12/2021 anxious, or unable to sleep at night because your mind is troubled all the time - these days? Financial Resource Strain Answer Date Recorded How hard is it for you to pay for the very basics like Not h slick at all 08/12/2021 food, housing, medical care, and heating? Food Insecurity Answer Date Recorded Within the past 12 months, you worried that your food would Never true 08/12/2021 run out before you got money to buy more. Within the past 12 months, the food you bought just didn't N ever true 08/12/2021 last and you didn't have money to get more. Transportation Needs Answer Date Recorded In the past 12 months, has lack of transportation kept you f rom No 08/12/2021 medical appointments or from getting medications? In the past 12 months, has lack of transportation kept you f rom No 08/12/2021 meetings, work, or getting things needed for daily living? Housing Stability Answer Date Recorded In the last 12 months, was there a time when you were not No 08/12/2021 able to pay the mortgage or rent on time? In the last 12 months, how many places have you lived? Not a sked In the last 12 months, was there a time when you did not hav e No 08/12/[address] or slept in a alf (including now)? Sex Assigned at Date Recorded Female 10/16/2020 6:22 PM CDT COVID-19 Exposure Response Date Recorded In the last 10 days, have you been in contact with No / Unsu re 11/12/2021 10:32 AM CDT someone who was confirmed or suspected to have Coronavirus/COVID-19? documented as of this encounter Plan of Treatment Scheduled Referrals Name Type Priority Associated Diagnoses Order S [facility] Referral Routine: Next Other specified Expected: Discharge - available opening counseling 11/13/2021 Referral to CC (Approximate) , Expires: 11/13/2022 documented as of this encounter Visit Diagnoses Diagnosis Other specified counseling documented in this encounter Additional Health Concerns Assessment Noted Time PHQ-9 Depression Total Score: 7 08/12/2021 11:54 AM CD T documented as of this encounter Care Teams Clinical Review Nurse Relationship Specialty Start Date End Date Francia Nair MD PCP - General Internal Medicine 01/28/13 [address] [place], [place] [phone] Francia Nair MD Assigned PCP 01/07/13 [address] [place] [address] Julieth Montes Assigned Surgical 03/17/21 LEANA Felton Provider [address] [place] [address] W[place] [id number] IpAlber MD Assigned Heart and 08/11/21 [address] Vascular Provider [place] [id number] documented as of this encounter
--- OUTSIDE RECORDS SUMMARY | 2022-01-30 11:34 | XMS_ITS | Encounter Summary ---
:1960 Author Organization [facility] Address [address] [place] [address]. [place] [address] Care Team Providers Name Role Phone Francia Nair MD Primary Care Provider Francia Nair MD Unavailable Julieth Montes OD Unavailable [phone] Ip, Alber Vuong MD Unavailable Reason for Visit Reason Onset Date Comments Abdominal Pain 08/16/2021 Encounter Details Date Type Department Care Team Description 08/16/[address] [facility] Kin Nair MD Abdominal Pain [place] [address] [address] [place] [address] [phone] Social History Tobacco Use Types Packs/Day Years [...] 08/12/2021 relatives? How often do you attend christianity or roman catholic Never 08/12/2021 services? Do you belong to any clubs or organizations such as Yes 08/12/2021 christianity groups, unions, fraternal or athletic groups, or [...] place to sleep or slept in a long term (including now)? Sex Assigned at Date Recorded Female 10/16/2020 6:22 PM CDT COVID-19 Exposure Response Date Recorded In the last 10 days, have you been in contact with No / Unsu re 08/12/2021 11:03 AM CDT someone who was confirmed or suspected to have Coronavirus/COVID-19? documented as of this encounter Miscellaneous Notes Telephone Encounter - Francia Nair MD - 08/16/2021 1:21 PM CDT She sent a FriendsClear message about this so I provided the information below, do not need to call her. Telephone Encounter - Francia Nair MD - 08/16/2021 11:25 AM CDT Since her stool tests were negative, antibiotics would not be appropriate. I can start her on a steroid pill, take 2 tablets once a day, she can start it as soon as she picks it up from the pharmacy. Day, I will give 10 days for now. Recommend trying to focus on primarily liquid diet for now. If she is having more severe symptoms over the weekend, a lot of bleeding, unable to eat at all, mayneed to go to the ED. Telephone Encounter - Gale Hammond RN - 08/16/2021 9:35 AM CDT Call received from patient stating she continues to have abdominal pain. Patient was seen by Carina Kent in clinic on 08/12/21 and was referred to [facility]. See that note. States pain comes and goes. She wasfeeling better yesterday but now that she has eaten this morning the pain is getting worse. States she was woken a couple of times during the night last night due to pain. Patient asking if she should be started on medication. States she has an appointment with colorectal on Thursday. States it was discussed starting antibiotic versus steroids based on results of stool samples. The pain is the same as it was when she was seen on Thursday. She has not had any further bloody stools. States as long as she doesn't eat the pain is better but if she eats anything she has increased pain. Rates pain 5/10. If she presses on the area pain is 7/10. Patient is able to tolerate fluids but has increased pain with solids. Patient requesting message be forwarded to Carina or Consuelo Swartz. Advised will route to primarycare provider and she can consult Consuelo Swartz if she feels that is needed. Patient agrees. documented in this encounter Plan of Treatment Not on filedocumented as of this encounter Visit Diagnoses Diagnosis Acute colitis - Primary Other and unspecified noninfectious fior roenteritis and colitis documented in this encounter Additional Health Concerns Assessment Noted Time PHQ-9 Depression Total Score: 7 08/12/2021 11:54 AM CD T documented as of this encounter Care Teams Toll Bridge Operator Relationship Specialty Start Date End Date Francia Nair MD PCP - General Internal Medicine 01/28/13 [address] [place] [address] Francia Nair MD Assigned PCP 01/07/13 [address] [place] [address] Julieth Montes Assigned Surgical 03/17/21 LEANA Felton Provider [address] [facility] [place] [phone] Alber Mendez MD Assigned Heart and 08/11/21 [address] Vascular Provider [place] [id number] documented as of this encounter
--- OUTSIDE RECORDS SUMMARY | 2022-01-30 11:34 | XMS_ITS | Encounter Summary ---
:1960 Author Organization [facility] Address [address] [place] [id number] Care Team Providers Name Role Phone Francia Nair MD Primary Care Provider Francia Nair MD Unavailable Julieth Montes OD Unavailable [phone] Ip, Alber Vuong MD Unavailable Encounter Details Date Type Department Care Team Description 08/29/2021 Travel Social History Tobacco Use Types Packs/Day Years [...] 08/12/2021 relatives? How often do you attend jew or taoist Never 08/12/2021 services? Do you belong to any clubs or organizations such as Yes 08/12/2021 jew groups, unions, fraternal or athletic groups, or [...] place to sleep or slept in a jail (including now)? Sex Assigned at Date Recorded Female 10/16/2020 6:22 PM CDT COVID-19 Exposure Response Date Recorded In the last 10 days, have you been in contact with No / Unsu re 08/29/2021 8:37 AM CDT someone who was confirmed or suspected to have Coronavirus/COVID-19? documented as of this encounter Plan of Treatment Not on filedocumented as of this encounter Visit Diagnoses Not on filedocumented in this encounter Additional Health Concerns Assessment Noted Time PHQ-9 Depression Total Score: 7 08/12/2021 11:54 AM CD T documented as of this encounter Care Teams Hatchery Man Relationship Specialty Start Date End Date Francia Nair MD PCP - General Internal Medicine 01/28/[address] [place], [place] [phone] Francia Nair MD Assigned PCP 01/07/[address] [place], [place] [address] Julieth Montes Assigned Surgical 03/17/21 LEANA Felton Provider [address] [place] [address] [place] [phone] Vanessa, Alber Vuong MD Assigned Heart and 08/11/21 [address] Vascular Provider [place] [id number] documented as of this encounter
--- OUTSIDE RECORDS SUMMARY | 2022-01-30 11:34 | XMS_ITS | Clinical Summary ---
:1960 Author Organization [facility] Address [address] [place] [address] Care Team Providers Name Role Phone Francia Mena MD Primary Care Provider Francia Mena MD Unavailable Julieth Montes OD Unavailable Ip, Alber Vuong MD Unavailable Allergies Active Allergy Reactions Severity Noted Date Comments Varenicline 05/30/2008 PN: LW Reaction : nightmare Medications Medication Sig Dispensed Refills Start Date End Date Status albuterol (PROAIR Inhale 2 puffs 18 g 11 10/18/2020 Active HFA/PROVENTIL into the lungs HFA/VENTOLIN HFA) 108 every 6 hours as (90 Base) MCG/ACT needed for inhalerIndications: shortness of Acute bronchospasm breath / dyspnea or wheezing acetaminophen Take 500-1,000 mg 0 Active (TYLENOL) 500 MG by mouth every 6 tablet hours as needed for mild pain lisinopril-hydrochloro Take 1 tablet by 90 tablet 3 03/14/2021 Active thiazide (ZESTORETIC) mouth daily 10-12.5 MG tabletIndications: Benign essential hypertension lactobacillus Take 1 capsule by 0 Active rhamnosus, GG, mouth 2 times (CULTURELL) capsule daily busPIRone (BUSPAR) 5 Take 1 tablet (5 90 tablet 0 08/29/2021 Active MG tabletIndications: mg) by mouth 2 Anxiety times daily For 5 days, then 2 tabs(10 mg) 2 times daily triamcinolone Apply topically 2 30 g 11 08/29/2021 Active (KENALOG) 0.1 % times daily external creamIndications: Eczema, unspecified type budesonide (ENTOCORT Take 2 capsules 60 capsule 1 09/19/2021 Active EC) 3 MG EC (6 mg) by mouth capsuleIndications: every morning Acute colitis buPROPion (WELLBUTRIN Take 1 tablet 53 tablet 0 10/31/2021 Active XL) 150 MG 24 hr (150 mg) by mouth tabletIndications: every morning for Mild episode of 7 days, THEN 2 recurrent major tablets (300 mg) depressive disorder every morning for (H) 23 days. diazepam (VALIUM) 2 MG Take 0.5 tablets 100 tablet 3 2 Active tabletIndications: (1 mg) by mouth Vertigo every 6 hours as needed (vertigo) Active Problems Problem Noted Date Acute colitis 09/08/2021 Bilateral incipient cataracts 08/23/2020 Corneal epithelial and basement membrane dystrophy Overview: Replacing diagnoses that were inactivate d after the 01/25/2021 regulatory import. Prolonged QT interval 03/05/2020 Anxiety 03/05/2020 Blood glucose abnormal 03/01/2020 Hyperlipidemia LDL goal <130 03/01/2020 Gastroesophageal reflux disease with esophagitis 05/24 Controlled substance agreement signed. C[employer] IN WORKER-ok- 01/27/20 09/03/2015 Overview: Patient is followed by FRANCIA MENA for ongoing prescription of stimulants. All refills should be approved by this provider, or covering partner. Medication(s): Adderall. Maximum quantity per month: 60 Clinic visit frequency required: Q 6 mon th Controlled substance agreement on file: Yes Date(s): 09/03/2015 Neuropsych evaluation for ADD completed: No Last [facility] website verification: none [email or web address] Major depression, recurrent 07/11/2013 Tobacco use disorder 06/15/2003 Benign essential hypertension 06/15/2003 Obesity 06/15/2003 Overview: Problem list name updated by automated p cherelle. Provider to review ADD (attention deficit disorder) Resolved Problems Problem Noted Date Resolved Date Obesity (BMI 35.0-39.9) with comorbidity 01/06/2019 10/24/2020 CARDIOVASCULAR SCREENING; LDL GOAL LESS THAN 160 01/30/2013 03/01/2020 Ovarian cyst 05/13/2004 01/30/2013 Overview: Problem list name updated by carlo ramires Provider to review Encounters Date Type Specialty Care Team Description 01/06/2022 Telephone Internal Medicine Lindy Virgen APRN Esta [facility] [place] [facility] [employer] 01/03/2022 Refill Internal Medicine Francia Mena MD Medica tion Refill 11/27/2021 PRE VISIT Neurosurgery Javier Morris *-*INCOMI NG RECORDS*-* MD Hermelindo 11/13/2021 Telephone Internal Medicine Francia Mena MD Medica tion Request (Vertigo really bad- hard to get thr ough her day) 11/13/2021 Orders Only FP-IM-PED Francia Mena MD Other speci fied counseling 11/12/2021 Emergency EMERGENCY MEDICINE Alber Farris, Men ingioma (H); MD Cornelius 11/12/2021 Telephone Neurosurgery None Appointment (Ca ningijulisa) 11/12/2021 Travel from Last 3 Months Immunizations Name Administration Dates Next Due COVID-19,PF,Moderna 03/08/2021, 08/09/2020, 07/12/2020 Influenza (H1N1) 01/30/2020, 04/12/2009 Influenza Quad, Recombinant, pf(RIV4) 03/14/2021 (Flublok) TDAP Vaccine (Adacel) 04/04/2013, 02/12/2009 Family History Medical History Relation Comments Heart Disease Father CHF Breast Cancer Maternal Grandmother Diabetes Maternal Grandmother Type 1 Heart Failure Mother Diabetes Paternal Aunt Colon Cancer No family hx of Relation Status Comments Brother Alive Daughter Alive Father (Age 83) Maternal Grandfather Maternal Grandmother Mother Fátima Graves Paternal Aunt Paternal Grandfather Paternal Grandmother Social History Tobacco Use Types Packs/Day Years Used Date Former Smoker Cigarettes 1 12/26/1977 - 0 05/10/2018 Smokeless Tobacco: Never Used Tobacco Cessation: Counseling Given: No Comments: 3/4 PPD- Alcohol Use Standard Drinks/Week [...] 08/12/2021 relatives? How often do you attend baptist or buddhist Never 08/12/2021 services? Do you belong to any clubs or organizations such as Yes 08/12/2021 baptist groups, unions, fraternal or athletic groups, or [...] for the very basics like Not h lsick at all 08/12/2021 food, housing, medical care, [...] place to sleep or slept in a fpc (including now)? Sex Assigned at Date Recorded Female 10/16/2020 6:22 PM CDT Last Filed Vital Signs Vital Sign Reading Time Taken Comments Blood Pressure 138/89 11/12/2021 2:00 PM CDT Pulse 94 11/12/2021 2:00 PM CDT Temperature 36.7 ??C (98.1 ??F) 11/12/2021 10:37 AM CDT Respiratory Rate 15 11/12/2021 12:15 PM CDT Oxygen Saturation 98% 11/12/2021 2:00 PM CDT Inhaled Oxygen Concentration - - Weight 83.9 kg (185 lb) 11/12/2021 10:51 AM CDT Height 163.8 cm (5' 4.5) 08/29/2021 8:45 AM CDT Body Mass Index 31.26 08/29/2021 8:45 AM CDT Plan of Treatment Health Maintenance Due Date Last Done Comments CT COLONOGRAPHY 1960 FIT-DNA (Cologuard) 1960 FIT 1960 FLEX SIG 1960 LUNG CANCER SCREENING 2009 COVID-19 Vaccine (4 - 05/03/2021 03/08/2021, 08/09/2020, Booster for Moderna 07/12/2020 series) INFLUENZA VACCINE (#1) 2021 03/14/2021, 01/30/2020, 01/24/2020, Additional history exists PHQ-9 02/11/2022 08/12/2021, 10/18/2020, 03/01/2020, Additional history exists ANNUAL REVIEW OF HM ORDERS 03/14/2022 03/14/2021 MICROALBUMIN 03/14/2022 03/14/2021, 03/01/2020, 01/07/2018, Additional history exists PREVENTIVE CARE VISIT 03/14/2022 03/14/2021, 03/01/2020, 01/07/2018, Additional history exists MAMMO SCREENING 07/20/2022 07/20/2020, 01/09/2017 ADVANCE CARE PLANNING 01/12/2023 01/12/2018 DTAP/TDAP/TD IMMUNIZATION 04/04/2023 04/04/2013, 02/12/2009 (3 - Td or Tdap) LIPID 03/14/2026 03/14/2021, 03/01/2020, 01/07/2018, Additional history exists COLONOSCOPY 04/05/2026 04/05/2021, 04/05/2021, 11/05/2015, Additional history exists COLORECTAL CANCER 04/05/2026 SCREENING ZOSTER IMMUNIZATION (2 of 08/13/2027 03/14/2021 (Declined) Postponed from 2) 05/09/2021 (Insu yesika Coverage) HEPATITIS C SCREENING Completed 08/04/2016 HIV SCREENING Completed 12/23/2016 DEPRESSION ACTION PLAN Completed 01/12/2018, 01/30/2013 HEPATITIS B IMMUNIZATION Aged Out No long er eligible based on patient 's age to complete this topic IPV IMMUNIZATION Aged Out No longer eligi ble based on patient 's age to complete this topic MENINGITIS IMMUNIZATION Aged Out No longe r eligible based on patient 's age to complete this topic PAP Discontinued Pneumococcal Vaccine: Aged Out No longer eligible Pediatrics (0 to 5 Years) based on patient's age and At-Risk Patients (6 to to co mplete this topic 64 Years) Procedures Procedure Name Priority Date/Time Associated Diagnosis Comme nts MR BRAIN W/O & W STAT 11/12/2021 1:04 PM Resul ts for this CONTRAST CDT procedure are i n the results section. CT HEAD PERFUSION W STAT 11/12/2021 11:16 AM R esults for this CONTRAST CDT procedure are i n the results section. CTA HEAD NECK W STAT 11/12/2021 11:09 AM Resul ts for this CONTRAST CDT procedure are i n the results section. CT HEAD W/O STAT 11/12/2021 11:04 AM Results for this CONTRAST CDT procedure are i n the results section. EXTRA PURPLE TOP STAT 11/12/2021 10:54 AM Resu lts for this TUBE CDT procedure are i n the results section. EXTRA GREEN TOP STAT 11/12/2021 10:54 AM Resul ts for this (LITHIUM HEPARIN) CDT procedure are in TUBE the results section. EXTRA RED TOP TUBE STAT 11/12/2021 10:54 AM Re sults for this CDT procedure are i n the results section. EXTRA BLUE TOP TUBE STAT 11/12/2021 10:54 AM R esults for this CDT procedure are i n the results section. EXTRA TUBE STAT 11/12/2021 10:54 AM Results for this CDT procedure are i n the results section. GLUCOSE BY METER STAT 11/12/2021 10:45 AM Resu lts for this CDT procedure are i n the results section. from Last 3 Months Results MR Brain w/o & w Contrast (11/12/2021 1:04 PM CDT) Anatomical Region Laterality Modality Head, SUBRAD MR NEURO, UMP MR NEURO, RAD MR Magnetic Resonance Specimen (Source) Anatomical Location Collection Method / Collectio n Time Received Time / Laterality Volume Impressions 11/12/2021 1:36 PM CDT IMPRESSION: 1. Enhancing mass centered within the ri ght cavernous sinus encasing the anterior clinoid process, consistent with meningioma. 2. The mass narrows the right optic teodora l and the right optic nerve is asymmetrically small and T2 hyperintense , suggestive of compressive neuropathy with atrophy. 3. Mass encases and mildly narrows the r ight internal carotid artery. 4. Recommend neurosurgical consultation. 5. No evidence of acute ischemia or hemo rrhage. ERIK LOUIS MD SYSTEM ID: ??[id number] Narrative 11/12/2021 1:36 PM CDT MRI BRAIN WITHOUT AND WITH CONTRAST November 12, 2021 1:04 PM HISTORY: Vertigo, facial numbness. CT sh ows cavernous sinus mass. TECHNIQUE: Multiplanar, multisequence MR I of the brain without and with 8.5 Gadavist. COMPARISON: Same day head CT/CTA. FINDINGS: A homogeneously enhancing mass is present involving the right cavernous sinus broadly abutting t he right anterior clinoid process measuring approximately 3.1 x 2. 2 x 2.0 cm (AP by TR by SI). The mass encases the right internal rivera tid artery. The mass extends into and narrows the ri ght optic canal. Mass also abuts the right optic chiasm, prechiasma tic optic nerve, and canalicular optic nerve. The right optic nerve is asymmetrically small and T2 hyperintense. Mass extends into t he sella turcica and suprasellar cistern. The mass extends in to the right middle cranial fossa. No evidence of acute ischemia, hemorrhag e, or hydrocephalus. Parenchymal volume loss is present with few areas of white matter T2 hyperintense signal which likely represe nts mild chronic small vessel ischemic change commensurate with age. Marrow signal is within normal limits. T he visualized paranasal sinuses, tympanic cavities, and mastoid cavities are unremarkable. Procedure Note Erik Louis MD - 11/12/2021F ormatting of this note might be different from the original. MRI BRAIN WITHOUT AND WITH CONTRAST November 12, 2021 1:04 PM HISTORY: Vertigo, facial numbness. CT sh ows cavernous sinus mass. TECHNIQUE: Multiplanar, multisequence MR I of the brain without and with 8.5 Gadavist. COMPARISON: Same day head CT/CTA. FINDINGS: A homogeneously enhancing mass is present involving the right cavernous sinus broadly abutting t he right anterior clinoid process measuring approximately 3.1 x 2. 2 x 2.0 cm (AP by TR by SI). The mass encases the right internal rivera tid artery. The mass extends into and narrows the ri ght optic canal. Mass also abuts the right optic chiasm, prechiasma tic optic nerve, and canalicular optic nerve. The right optic nerve is asymmetrically small and T2 hyperintense. Mass extends into t he sella turcica and suprasellar cistern. The mass extends in to the right middle cranial fossa. No evidence of acute ischemia, hemorrhag e, or hydrocephalus. Parenchymal volume loss is present with few areas of white matter T2 hyperintense signal which likely represe nts mild chronic small vessel ischemic change commensurate with age. Marrow signal is within normal limits. T he visualized paranasal sinuses, tympanic cavities, and mastoid cavities are unremarkable. IMPRESSION: 1. Enhancing mass centered within the ri ght cavernous sinus encasing the anterior clinoid process, consistent with meningioma. 2. The mass narrows the right optic teodora l and the right optic nerve is asymmetrically small and T2 hyperintense , suggestive of compressive neuropathy with atrophy. 3. Mass encases and mildly narrows the r ight internal carotid artery. 4. Recommend neurosurgical consultation. 5. No evidence of acute ischemia or hemo rrhage. ERIK LOUIS MD SYSTEM ID: [id number] Alber Farris MD [facility] MRI ORDERABLES CT Head Perfusion w Contrast (11/12/2021 11:16 AM CDT) Anatomical Region Laterality Modality Head, SUBRAD CT NEURO, SUBRAD CT NEURO, UMP CT NEURO Computed Tomography Specimen (Source) Anatomical Location Collection Method / Collectio n Time Received Time / Laterality Volume Impressions 11/12/2021 11:46 AM CDT IMPRESSION: Unremarkable CT perfusion. ERIK LOUIS MD SYSTEM ID: ??[id number] Narrative 11/12/2021 11:[address] BRAIN PERFUSION 11/12/2021 11:16 AM HISTORY: Code stroke. TECHNIQUE: Time sequential axial CT imag es of the head were acquired during the administration of 125mL Isovu e-370 IV. Color perfusion maps of the brain were created from this time sequential axial source data. Radiation dose for this scan was reduced using automated exposure control, adjustment of the mA and/or kV according to patient size, or iterative reconstruction technique. COMPARISON: None. Procedure Note Erik Louis MD - 11/12/2021F ormatting of this note might be different from the original. CT BRAIN PERFUSION 11/12/2021 11:16 AM HISTORY: Code stroke. TECHNIQUE: Time sequential axial CT imag es of the head were acquired during the administration of 125mL Isovu e-370 IV. Color perfusion maps of the brain were created from this time sequential axial source data. Radiation dose for this scan was reduced using automated exposure control, adjustment of the mA and/or kV according to patient size, or iterative reconstruction technique. COMPARISON: None. IMPRESSION: Unremarkable CT perfusion. ERIK LOUIS MD SYSTEM ID: [id number] Alber Farris MD [facility] CT ORDERABLES CTA Head Neck w Contrast (11/12/2021 11:09 AM CDT) Anatomical Region Laterality Modality Head, SUBRAD CT NEURO, SUBRAD CT NEURO, UMP CT NEURO, Computed Tomography RAD CT Specimen (Source) Anatomical Location Collection Method / Collectio n Time Received Time / Laterality Volume Impressions 11/12/2021 4:29 PM CDT IMPRESSION: CTA Head: 1. Mass involving the right cavernous si nus ??encases and mildly narrows the right internal carotid arter y. Recommend head MRI. 2. Otherwise, no evidence of large vesse l occlusion or high-grade stenosis. CTA Neck: 1. No evidence of large vessel occlusion or high-grade stenosis. ERIK LOUIS MD SYSTEM ID: ??[id number] Narrative 11/12/2021 4:[address] ANGIOGRAM OF THE HEAD AND NECK WITH CONTRAST ??11/12/2021 11:09 AM HISTORY: Code stroke. TECHNIQUE: ??CT angiography with an inje ction of 125mL Isovue-370 IV with scans through the head and neck. Im ages were transferred to a separate 3-D workstation where multiplan ar reformations and 3-D images were created. Estimates of carotid steno ses are made relative to the distal internal carotid artery diameters except as noted. Radiation dose for this scan was reduced using aut omated exposure control, adjustment of the mA and/or kV according to patient size, or iterative reconstruction technique. COMPARISON: None. CT ANGIOGRAM HEAD FINDINGS: ?? The right internal carotid artery demons trates encasement and narrowing at the anterior cavernous and ophthalmic segments and displacement at the supraclinoid segment related to mass involving the right cavernous sinus abutting the right anterior clinoid process. Otherwise, the internal carotid arteries , anterior cerebral arteries, and middle cerebral arteries are patent. The vertebral arteries, basilar artery, and posterior cerebral a rteries are patent. No evidence of large vessel occlusion or hi gh-grade stenosis. No evidence of dissection. Right posterior communica ting artery is present along the medial margin of the cavernous sinus mass. CT ANGIOGRAM NECK FINDINGS: A three-vessel aortic arch is present. T he bilateral common carotid, internal carotid, external carotid, and vertebral arteries are patent. No evidence of large vessel occlusion or high-grade stenosis. No evidence of dissection. Cervical spine degenerative changes. Procedure Note Erik Louis MD - 11/12/2021F ormatting of this note might be different from the original. CT ANGIOGRAM OF THE HEAD AND NECK WITH Melissa SMITH 11/12/2021 11:09 AM HISTORY: Code stroke. TECHNIQUE: CT angiography with an inject ion of 125mL Isovue-370 IV with scans through the head and neck. Im ages were transferred to a separate 3-D workstation where multiplan ar reformations and 3-D images were created. Estimates of carotid steno ses are made relative to the distal internal carotid artery diameters except as noted. Radiation dose for this scan was reduced using aut omated exposure control, adjustment of the mA and/or kV according to patient size, or iterative reconstruction technique. COMPARISON: None. CT ANGIOGRAM HEAD FINDINGS: The right internal carotid artery demons trates encasement and narrowing at the anterior cavernous and ophthalmic segments and displacement at the supraclinoid segment related to mass involving the right cavernous sinus abutting the right anterior clinoid process. Otherwise, the internal carotid arteries , anterior cerebral arteries, and middle cerebral arteries are patent. The vertebral arteries, basilar artery, and posterior cerebral a rteries are patent. No evidence of large vessel occlusion or hi gh-grade stenosis. No evidence of dissection. Right posterior communica ting artery is present along the medial margin of the cavernous sinus mass. CT ANGIOGRAM NECK FINDINGS: A three-vessel aortic arch is present. T he bilateral common carotid, internal carotid, external carotid, and vertebral arteries are patent. No evidence of large vessel occlusion or high-grade stenosis. No evidence of dissection. Cervical spine degenerative changes. IMPRESSION: CTA Head: 1. Mass involving the right cavernous si nus encases and mildly narrows the right internal carotid arter y. Recommend head MRI. 2. Otherwise, no evidence of large vesse l occlusion or high-grade stenosis. CTA Neck: 1. No evidence of large vessel occlusion or high-grade stenosis. ERIK LOUIS MD SYSTEM ID: [id number] Alber Farris MD IMG CT ORDERABLES CT Head w/o Contrast (11/12/2021 11:04 AM CDT) Anatomical Region Laterality Modality Head, SUBRAD CT NEURO, SUBRAD CT NEURO, UMP CT NEURO, Computed Tomography RAD CT Specimen (Source) Anatomical Location Collection Method / Collectio n Time Received Time / Laterality Volume Impressions 11/12/2021 11:45 AM CDT IMPRESSION: 1. No CT evidence of acute ischemia or h emorrhage. 2. 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 MRI would be typically recommended for further characterization. Findings were discussed by phone between Dr. Louis and Dr. Farris at 11:07 AM on 11/12/2021. ERIK LOUIS MD SYSTEM ID: ??[id number] Narrative 11/12/2021 11:[address] SCAN OF THE HEAD WITHOUT CONTRAST ?? 11/12/2021 11:04 AM HISTORY: Code stroke. TECHNIQUE: ??Axial images of the head an d coronal reformations without IV contrast material. Radiation dose for this scan was reduced using automated exposure control, adjustment o f the mA and/or kV according to patient size, or iterative reconstruc tion technique. COMPARISON: None. FINDINGS: No CT evidence of acute ischemia or hemo rrhage. A mass is present involving the right ca vernous sinus abutting the anterior clinoid process extending into the suprasellar cistern and right middle cranial fossa measuring rou ghly 2 to 3 cm. Cortical thickening and sclerotic changes are pre sent involving the right anterior clinoid process. The calvarium, tympanic cavities, mastoi d cavities, and paranasal sinuses are unremarkable. Procedure Note Erik Louis MD - 11/12/2021F ormatting of this note might be different from the original. CT SCAN OF THE HEAD WITHOUT CONTRAST 10/25 11:04 AM HISTORY: Code stroke. TECHNIQUE: Axial images of the head and coronal reformations without IV contrast material. Radiation dose for this scan was reduced using automated exposure control, adjustment o f the mA and/or kV according to patient size, or iterative reconstruc tion technique. COMPARISON: None. FINDINGS: No CT evidence of acute ischemia or hemo rrhage. A mass is present involving the right ca vernous sinus abutting the anterior clinoid process extending into the suprasellar cistern and right middle cranial fossa measuring rou ghly 2 to 3 cm. Cortical thickening and sclerotic changes are pre sent involving the right anterior clinoid process. The calvarium, tympanic cavities, mastoi d cavities, and paranasal sinuses are unremarkable. IMPRESSION: 1. No CT evidence of acute ischemia or h emorrhage. 2. 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 MRI would be typically recommended for further characterization. Findings were discussed by phone between Dr. Louis and Dr. Farris at 11:07 AM on 11/12/2021. ERIK LOUIS MD SYSTEM ID: [id number] Alber Farris MD IMG CT ORDERABLES Extra Purple Top Tube (11/12/2021 10:54 AM CDT) athologist Signature Hold Specimen [facility] 11/12/2021 [facility] 12:08 PM CDT Specimen Anatomical Collection Method / Collection Time Recei lise Time (Source) Location / Volume Laterality Blood STRUCTURE OF LEFT Venipuncture / 11/12/2021 10:54 10/25 UPPER LIMB / Unknown AM CDT 10:58 AM CDT Unknown Alber Farris MD LAB - BLOOD ORDERABLES Performing Organization Address City/State/[place] [address] Care [facility] [address] Lab (1st floor, no room number) Extra Green Top ([place] [facility]arin) Tube (11/12/2021 10:54 AM CDT) athologist Signature Hold Specimen [facility] 11/12/2021 [facility] 12:08 PM CDT Specimen Anatomical Collection Method / Collection Time Recei lise Time (Source) Location / Volume Laterality Blood STRUCTURE OF LEFT Venipuncture / 11/12/2021 10:54 07/12/2021 UPPER LIMB / Unknown AM CDT 10:58 AM CDT Unknown Alber Farris MD LAB - BLOOD ORDERABLES Performing Organization Address City/State/[place] [address] [facility] [address] Lab (1st floor, no room number) Extra Red Top Tube (11/12/2021 10:54 AM CDT) athologist Signature Hold Specimen [facility] 11/12/2021 [facility] 12:08 PM CDT Specimen Anatomical Collection Method / Collection Time Recei lise Time (Source) Location / Volume Laterality Blood STRUCTURE OF LEFT Venipuncture / 11/12/2021 10:54 07/12/2021 UPPER LIMB / Unknown AM CDT 10:58 AM CDT Unknown Alber Farris MD LAB - BLOOD ORDERABLES Performing Organization Address City/State/[place] [address] [facility] [address] Lab (1st floor, no room number) Extra Blue Top Tube (11/12/2021 10:54 AM CDT) athologist Signature Hold Specimen [facility] 11/12/2021 [facility] 12:08 PM CDT Specimen Anatomical Collection Method / Collection Time Recei lise Time (Source) Location / Volume Laterality Blood STRUCTURE OF LEFT Venipuncture / 11/12/2021 10:54 0712/2021 UPPER LIMB / Unknown AM CDT 10:58 AM CDT Unknown Alber Farris MD LAB - BLOOD ORDERABLES Performing Organization Address City/[facility]/[place]IP [place] [address] Care [facility] [address] Lab (1st floor, no room number) (ABNORMAL) Glucose by meter (11/12/2021 10:45 AM CDT) athologist Signature GLUCOSE BY 121 (H) 70 - 99 11/12/2021 [facility] LABORATORY METER POCT mg/dL 10:52 AM CDT POC Specimen (Source) Anatomical Collection Method Collection Time Re ceived Time Location / / Volume Laterality Blood, Capillary BLOOD SPECIMEN / 11/12/2021 10:45 Unknown AM CDT 10:52 AM CDT Alber Farris MD LAB - BEAKER POCT Performing Organization Address City/State/ZIP Code Phon e Number LABORATORY [facility] [place] [address] Care Lab [address] Lab (1st floor, no room number) from Last 3 Months Insurance Payer Benefit Plan / Subscriber ID Effective Phone Address T ype Group Dates PREFERREDONE PREFERREDONE [id number] 2020-Prese [phone] [address] [place] [id number] PPO [facility] [address] [facility] [id number] [facility] 1960 [id number] (Home) TRAIL [phone] Kin ACUÑA (Work) [id number] Care Teams Cooperative Education Coordinator Relationship Specialty Start Date End Date Francia Mena MD PCP - General Internal Medicine 01/28/[address] [place] [address] Francia Mena MD Assigned PCP 01/07/[address] [place] [address] Julieth Montes Assigned Surgical 03/17/21 LEANA Felton Provider [address] [facility] [place] [address] Alber Mendez MD Assigned Heart and 08/11/21 [address] Vascular Provider [place] [id number]
--- OUTSIDE RECORDS SUMMARY | 2022-01-30 11:34 | XMS_ITS | Encounter Summary ---
:1960 Author Organization [facility] Address [address] [place] [address]. [place] [address] Care Team Providers Name Role Phone Francia Nair MD Primary Care Provider Francia Nair MD Unavailable Julieth Montes OD Unavailable [phone], Alber Vuong MD Unavailable Reason for Visit Reason Onset Date Comments Medication Request 11/13/2021 Vertigo really bad- hard to get through her day Encounter Details Date Type Department Care Team Description 11/13/2021 Telephone [facility] Francia Nair MD Medication Request Clinic [facility] [address] (Vertigo really bad- [address] [place] [address] [place] [address] her day) [place], [place] [phone] (Wo rk) [phone] Social History Tobacco Use Types Packs/Day Years [...] 08/12/2021 relatives? How often do you attend restoration or adventist Never 08/12/2021 services? Do you belong to any clubs or organizations such as Yes 08/12/2021 restoration groups, unions, fraternal or athletic groups, or [...] this encounter Miscellaneous Notes Telephone Encounter - Drea Peter RN - 11/14/2021 11:45 AM CDT Patient calls back. Advised. She verbalized understanding. Telephone Encounter - Cherelle Espinoza LPN - 11/14/2021 10:51 AM CDT Patient's home/cell number message on machine to call back. Telephone Encounter - Francia Nair MD - 11/14/2021 10:44 AM CDT The dose of the Valium is pretty small, I did a 2 mg tablet she can try half tablet first. It is often the best medication for vertigo and the meclizine is not helping. Telephone Encounter - Cherelle Espinoza LPN - 11/14/2021 10:17 AM CDT Patient states Meclizine is not really helping. She is somewhat concern about Valium being too strong. She decided prescription should be sent to [facility] in chart. Advised patient to check with insurance. She states that she is all set up with [facility] neurologist alicja appointment 11-20-2021 as she has not heard back from [facility] scheduling. Patient states she knowsit will be expensive to go to [facility]. Telephone Encounter - Francia Nair MD - 11/14/2021 6:52 AM CDT Please confirm that she has tried meclizine. If not, she should get that. If she has, then I will send a little diazepam or Valium. Is advised that she should be sure that her insurance will cover her at mail. They are out of network for a lot of our patients so we would often refer to the [facility]. Telephone Encounter - Fátima Sinclair - 11/13/2021 3:28 PM CDT Medication Question or Refill What medication are you calling about (include dose and sig)?: to help with her vertico Controlled Substance Agreement on file: CSA -- Patient Level: Controlled Substance Agreement - Non - Opioid - Scan on 01/20/2019 12:51 PM: NON- OPIOID CONTROLLED SUBSTANCE AGREEMENT Who prescribed the medication?: anything to help vertigo for the next week, OTC remedies have been tried already Do you need a refill? No When did you use the medication last? na Patient offered an appointment? Yes: but nothing available before next week Do you have any questions or concerns? Yes: recently diagnosed brain tumor when she went to the ED after being sent by triage per patient. She is very upset trying to process this and also wants some relief from the vertigo. She has a neurology apt at [facility] next week but cant function much now until then. Do we recommend her see another provider? Can we help her out? Preferred Pharmacy: [id number] [place], [place] - [address] [facility] [address] [address] [facility] [address] [facility] [phone] Could we send this information to you in [place] or would you prefer to receive a phone call?: Patient would prefer a phone call Okay to leave a detailed message?: Yes at Cell number on file: Telephone Information: or Other phone number: documented in this encounter Plan of Treatment Not on filedocumented as of this encounter Visit Diagnoses Diagnosis Vertigo - Primary Dizziness and giddiness documented in this encounter Additional Health Concerns Assessment Noted Time PHQ-9 Depression Total Score: 7 08/12/2021 11:54 AM CD T documented as of this encounter Care Teams Motion Picture Photographer Relationship Specialty Start Date End Date Francia Nair MD PCP - General Internal Medicine 01/28/[address] [place] [id number] Francia Nair MD Assigned PCP 01/07/[address] [place] [address] [id number] Julieth Montes Assigned Surgical 03/17/21 LEANA Felton Provider [address] [place] [address] [place] [address] Alber Mendez MD Assigned Heart and 08/11/21 [address] Vascular Provider [place] [id number] documented as of this encounter
--- OUTSIDE RECORDS SUMMARY | 2022-01-30 11:34 | XMS_ITS | Encounter Summary ---
:1960 Author Organization [facility] Address [address] [place] [address]. [place] [address] Care Team Providers Name Role Phone Francia Nair MD Primary Care Provider Francia Nair MD Unavailable Julieth Montes OD Unavailable [phone] [address], Alber Vuong MD Unavailable Reason for Visit Reason Onset Date Comments Patient/info Update 07/31/2021 next day appt Encounter Details Date Type Department Care Team Description 07/31/2021 Telephone [facility] Heart Ip, Alber Qiu ient/info Update Clinic Marco Antonio Vuong MD (next day appt) [address] [facility] [address] [facility] [address] [place] [phone] [place] [id number] Social History Tobacco Use Types Packs/Day Years [...] 08/12/2021 relatives? How often do you attend muslim or quaker Never 08/12/2021 services? Do you belong to any clubs or organizations such as Yes 08/12/2021 muslim groups, unions, fraternal or athletic groups, or [...] Exposure Response Date Recorded In the last month, have you been in contact with No / Unsure 08/01/2021 8:36 AM CDT someone who was confirmed or suspected to have Coronavirus / COVID-19? documented as of this encounter Miscellaneous Notes Telephone Encounter - Lottie Anderson - 07/31/2021 2:29 PM CDT Health Call Center Phone Message May a detailed message be left on voicemail: yes Reason for Call: Other: Pt called in and scheduled gen card consult w/ Dr. Mendez tomorrow at 8:45. Action Taken: Message routed to: Other: [facility] Travel Screening: Not Applicable documented in this encounter Plan of Treatment Not on filedocumented as of this encounter Visit Diagnoses Not on filedocumented in this encounter Additional Health Concerns Assessment Noted Time PHQ-9 Depression Total Score: 5 10/18/2020 8:15 AM CDT documented as of this encounter Care Teams Poultry Veterinarian Relationship Specialty Start Date End Date Francia Nair MD PCP - General Internal Medicine 01/28/13 [address] [place], [place] [phone] Francia Nair MD Assigned PCP 01/07/13 [address] [place], [place] [phone] Julieth Montes Assigned Surgical 03/17/21 LEANA Felton Provider [address] [place] [address] [place] [address] Alber Mendez MD Assigned Heart and 08/11/21 [address] Vascular Provider [place] [id number] documented as of this encounter
--- OUTSIDE RECORDS SUMMARY | 2022-01-30 11:34 | XMS_ITS | Encounter Summary ---
:1960 Author Organization [facility] Address [address] [address]. [place] [address] Care Team Providers Name Role Phone Francia Nair MD Primary Care Provider Francia Nair MD Unavailable Julieth Montes OD Unavailable [phone] IpAlber MD Unavailable Reason for Visit Reason Comments Extremity Weakness Encounter Details Date Type Department Care Team Description 11/12/[address] [facility] Alber Merchant MD Meningioma (H); Emergency Dept [facility] ALIZA Cornelius [address] [facility] [address] [place] [phone] (Wo rk) Social History Tobacco Use Types [...] 08/12/2021 relatives? How often do you attend congregation or moravian Never 08/12/2021 services? Do you belong to any clubs or organizations such as Yes 08/12/2021 congregation groups, unions, fraternal or athletic groups, or [...] place to sleep or slept in a [facility] (including now)? Sex Assigned at Date Recorded Female 10/16/2020 6:22 PM CDT COVID-19 Exposure Response Date Recorded In the last 10 days, have you been in contact with No / Unsu re 11/12/2021 10:32 AM CDT someone who was confirmed or suspected to have Coronavirus/COVID-19? documented as of this encounter Last Filed [...] (185 lb) 11/12/2021 10:51 AM CDT Height - - Body Mass Index 31.26 08/29/2021 8:45 AM CDT documented in this encounter Discharge Instructions Discharge InstructionsAlber Farris MD - 11/12/2021 2:20 PM CDT Discharge Instructions Vertigo You have been diagnosed with vertigo. This is a dizzy feeling often described as spinning or that the room is moving around you. You will often have nausea (sick to your stomach), vomiting (throwing up), and balance problems with it. Vertigo is usually caused by a problem in the inner ear which helps control your balance. Many things can cause vertigo, including calcium collections in the inner ear, a virus infection of the inner ear, concussion, migraine, and some medicines. Luckily, these causes are not life threatening and will eventually go away. However, sometimes there is a serious problem that does not show up right away. Generally, every Emergency Department visit should have a follow-up clinic visit with either a primary or a specialty clinic/provider. Please follow-up as instructed by your emergency provider today. Return to the Emergency Department if you have: New or severe headache. Double vision (seeing two of things). Trouble speaking or hearing. Weakness or trouble moving/using one side of your body. Passing out. Numbness or tingling. Chest pain. Vomiting that will not stop. Treatment: There are several commonly prescribed medications: Antihistamines such as meclizine (Antivert??), dimenhydrinate (Dramamine??), or diphenhydramine (Benadryl??). Prescription anti-nausea medicines, such as promethazine (Phenergan??), metoclopramide (Reglan??), or ondansetron (Zofran??). Prescription sedative medicines, such as diazepam (Valium??), lorazepam (Ativan??), or clonazepam (Klonopin??). Most of these medicines make you sleepy, and you should not take them before you work or drive. You should only take prescription medicines to treat severe vertigo symptoms, and you should stop the medicine when your symptoms improve. Follow Up: If you have vertigo longer than three days, it is important that you follow up either with your primary provider or an Ear, Nose, and Throat (ENT) specialist. You may need further testing to evaluate your vertigo and you may also need ???vestibular?? therapy which is a special form of physical therapy to make the vertigo go away. If you were given a prescription for medicine here today, be sure to read all of the information (including the package insert) that comes with your prescription. This will include important information about the medicine, its side effects, and any warnings that you need to know about. The pharmacist who fills the prescription can provide more information and answer questions you may have about the medicine. If you have questions or concerns that the pharmacist cannot address, please call or return to the Emergency Department. Remember that you can always come back to the Emergency Department if you are not able to see your regular provider in the amount of time listed above, if you get any new symptoms, or if there is anything that worries you. documented in this encounter Medications at Time of Discharge Medication Sig Dispensed Refills Start Date End Date acetaminophen (TYLENOL) Take 500-1,000 mg by 0 500 MG tablet mouth every 6 hours as needed for mild pain albuterol (PROAIR Inhale 2 puffs into 18 g 11 HFA/PROVENTIL the lungs every 6 HFA/VENTOLIN HFA) 108 (90 hours as needed for Base) MCG/ACT shortness of breath / inhalerIndications: Acute dyspnea or wheezing bronchospasm budesonide (ENTOCORT EC) Take 2 capsules (6 60 capsule 1 3 MG EC mg) by mouth every capsuleIndications: Acute morning colitis buPROPion (WELLBUTRIN XL) Take 1 tablet (150 53 tablet 0 150 MG 24 hr mg) by mouth every tabletIndications: Mild morning for 7 days, episode of recurrent THEN 2 tablets (300 major depressive disorder mg) every morning for (H) 23 days. busPIRone (BUSPAR) 5 MG Take 1 tablet (5 mg) 90 tablet 0 tabletIndications: by mouth 2 times Anxiety daily For 5 days, then 2 tabs(10 mg) 2 times daily lactobacillus rhamnosus, Take 1 capsule by 0 GG, (CULTURELL) capsule mouth 2 times daily lisinopril-hydrochlorothi Take 1 tablet by 90 tablet 3 02/25 azide (ZESTORETIC) mouth daily 10-12.5 MG tabletIndications: Benign essential hypertension triamcinolone (KENALOG) Apply topically 2 30 g 11 08/29 0.1 % external times daily creamIndications: Eczema, unspecified type documented as of this encounter Consult Notes Angie Chase PA-C - 11/12/2021 11:24 AM CDT Images from the original note were not included. [facility] Stroke Telephone Note I was called by Alber Farris on 11/12/21 regarding patient Robbie Miller. The patient is a 61 year old female who was experiencing acute vertigo when she woke up on Thursday (48+ hrs ago), andthis vertigo was preceded by severeal days of neck and head pain, today she has R side facial numbness and possible weakness in her face on the R. BP in ED 158/89 Stroke Code Data (for stroke code without tele) Stroke code activated 11/12/21 1052 Stroke provider first response 11/12/21 1053 Last known normal 11/09/21 Time of discovery (or onset of symptoms) 11/10/[address] read by Stroke Neuro Dr/Provider 11/12/21 1109 Was stroke code de-escalated? Yes 11/12/[address] head shows no acute findings concerning for stroke but she does have an incidental R cavernous sinus mass. Intravenous Thrombolysis Not given due to: - unclear or unfavorable risk-benefit profile for extended window thrombolysis beyond the conventional 4.5 hour time window Endovascular Treatment Not initiated due to absence of proximal vessel occlusion Impression Dizziness, numbness, possible facial droop of unclear etiology Cavernous sinus mass Recommendations - Check brain MRI with and without contrast and call us back after for further recs D/w my attending Dr. Mortensen My recommendations are based on the information provided over the phone by Robbie Miller's in-person providers. They are not intended to replace the clinical judgment of her in-person providers.I was not requested to personally see or examine the patient at this time. Angie Chase PA-C Neurology 11/12/2021 11:27 AM To page me or covering stroke neurology steam locomotive firer/fireman, click here: AMCOM Choose Network Design Architect tab at top, then search dropdown box for Neurology Adult, select location, press Enter, then look for stroke/neuro ICU/telestroke. Associated attestation - Barbie Chapa MD - 11/12/2021 11:41 AM CDT Stroke-Neurocritical Care Attending Attestation I have reviewed and discussed with the LINCOLN their history, physical and plan for Robbie Millre. I did not participate in a shared visit by interviewing or examining the patient and this should bebilled as an advanced practice provider only visit Dizziness >48h. NCCT/CTA/CTP unrevealing for vascular etiology of symptoms; does have cavernous sinus mass. Rec MRI for further eval. Barbie Chapa MD Vascular Neurology To page me or covering stroke neurology steam locomotive firer/fireman, click here: AMCOM Choose Network Design Architect tab at top, then search dropdown box for Neurology Adult, select location, press Enter, then look for stroke/neuro ICU/telestroke. documented in this encounter ED Notes Vani Ledbetter RN - 11/12/2021 11:03 AM CDT Patient has been having dizziness since last week, but today has noted an increase in the dizziness and the pain she is feeling as well as noted numbness and drooping to the right side of her face. Triage Assessment Row Name 11/12/21 1038 Triage Assessment (Adult) Airway WDL WDL Respiratory WDL Respiratory WDL WDL Skin Circulation/Temperature WDL Skin Circulation/Temperature WDL WDL Cardiac WDL Cardiac WDL WDL Peripheral/Neurovascular WDL Peripheral Neurovascular WDL WDL Cognitive/Neuro/Behavioral WDL Cognitive/Neuro/Behavioral WDL WDL Vani Ledbetter RN - 11/12/2021 10:39 AM CDT Bed: ED11 Expected date: 11/12/21 Expected time: 10:36 AM Means of arrival: Comments: Hold for triage Alber Farris MD - 11/12/2021 10:31 AM CDT History Chief Complaint: Vertigo and Headache The history is provided by the patient and the spouse (). Robbie Miller is a 61 year old female with history of hypertension, hyperlipidemia, and GERD who presents for evaluation of a possible stroke. The patient reports having an episode of extreme dizziness, which she attributes to vertigo, while reaching over her bed for a remote 2 mornings ago. She describes the feeling as if she was being thrown up into the karen and twirling and states that it has not subsided since. Notably, she was feeling well the night before. A week prior to the vertigo episode she began to experience intermittent sharp right-sided head and neck pain which became constant 2 days ago. During this time she also noticed some right-sided facial numbness and weakness along with a slight droop to her right eye and mouth. Presently, she has some blurry vision in her right eye. She has not been taking any medications for pain management, but has been taking meclizine for dizziness with little alleviation. Her symptoms are exacerbated with pressure to her neck. Prior to presentation, she reached out to her primary care provider who advised her to come to the ED for a stroke evaluation. She has history of high cholesterol and prediabetes. She has hypertension which she manages with lisinopril. She has no history of stroke or similar symptoms. She previously was a tobacco user but quit smoking 5 years ago. She has family history of heart disease but not of stroke. Review of Systems Eyes: Positive for visual disturbance (blurry vision, slight). Musculoskeletal: Positive for neck pain (right-sided). Neurological: Positive for dizziness, facial asymmetry (slight), weakness, numbness and headaches. All other systems reviewed and are negative. Allergies: Varenicline Medications: Albuterol Entocort Wellbutrin XL Buspar Culturell Zestoretic Past Medical History: Tobacco use disorder Hypertension Obesity ADD Depression, recurrent GERD Hyperlipidemia Anxiety Bilateral incipient cataracts Corneal epithelial and basement membrane dystrophy Acute colitis Mood disorder Leiomyoma of uterus YEIMY Past Surgical History: Colonoscopy x2 Hysterectomy, partial Breast reduction Family History: CHF x2 Social History: The patient presents to the ED with her . The patient arrived to the ED in a private vehicle. PCP: Francia Nair MD, Internal Medicine Physical Exam Patient Vitals for the past 24 hrs: BP Temp Temp src Pulse Resp SpO2 Weight 11/12/21 1054 (!) 158/89 -- -- 94 18 96 % -- 11/12/21 1052 -- -- -- 86 -- -- -- 11/12/21 1051 -- -- -- -- -- -- 83.9 kg (185 lb) 11/12/21 1037 (!) 133/90 98.1 ??F (36.7 ??C) Oral -- 18 99 % -- Physical Exam General: Patient is alert and cooperative. HENT: No facial weakness or asymmetry. Eyes: EOMI. No nystagmus; no visual field cut or other deficit. Neck: Normal range of motion and appearance. Cardiovascular: Normal rate, regular rhythm and normal heart sounds. Pulmonary/Chest: Effort normal. No wheezing or crackles. Abdominal: Soft. No distension or tenderness. Musculoskeletal: Normal range of motion. No edema or tenderness. Neurological: oriented, normal strength, sensation, and coordination. Skin: Warm and dry. No rash or bruising. Psychiatric: Normal mood and affect. Normal behavior and judgement. Emergency Department Course Imaging: MR Brain w/o & w Contrast Final Result IMPRESSION: 1. Enhancing mass centered within the right cavernous sinus encasing the anterior clinoid process, consistent with meningioma. 2. The mass narrows the right optic canal and the right optic nerve is asymmetrically small and T2 hyperintense, suggestive of compressive neuropathy with atrophy. 3. Mass encases and mildly narrows the right internal carotid artery. 4. Recommend neurosurgical consultation. 5. No evidence of acute ischemia or hemorrhage. ERIK LOUIS MD SYSTEM ID: [id number] CT Head Perfusion w Contrast Final Result IMPRESSION: Unremarkable CT perfusion. ERIK LOUIS MD SYSTEM ID: [id number] CTA Head Neck w Contrast Preliminary Result IMPRESSION: CTA Head: 1. Mass involving the right cavernous sinus effaces and mildly narrows the right internal carotid artery. Recommend head MRI. 2. Otherwise, no evidence of large vessel occlusion or high-grade stenosis. CTA Neck: 1. No evidence of large vessel occlusion or high-grade stenosis. CT Head w/o Contrast Final Result IMPRESSION: 1. No CT evidence of acute ischemia or hemorrhage. 2. 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 MRI would be typically recommended for further characterization. Findings were discussed by phone between Dr. Louis and Dr. Farris at 11:07 AM on 11/12/2021. ERIK LOUIS MD SYSTEM ID: [id number] Report per radiology Laboratory: Labs Ordered and Resulted from Time of ED Arrival to Time of ED Departure GLUCOSE BY METER - Abnormal Result Value GLUCOSE BY METER POCT 121 (*) Emergency Department Course: Reviewed: I reviewed nursing notes, vitals, past medical history and Care Everywhere Assessments: 1042 I obtained history and examined the patient as noted above. 1121 I rechecked the patient and explained findings. 1350 I rechecked the patient and explained findings. I am waiting for neurosurgery to call back. Consults: [address] Louis, radiologist, regarding the patient's imaging. 1121 I consulted with Carina Chase PA-C stroke neurology, regarding the patient's history and presentation here in the emergency department. [address] Fletcher PA-C neurosurgery, regarding the patient's history and presentationhere in the emergency department. Interventions: 1211 Transderm 1 patch Transdermal 1221 Gadavist 8.5 mL IV Disposition: The patient was discharged to home. Impression & Plan Medical Decision Makin-year-old female arrives via car for evaluation of acute vertigo first noted on awakening ThursdayNovember 10. For a number of days prior to that, she had been experiencing right-sided head ache and neck pain. She additionally is complaining of some subjective right-sided facial numbness. She hasa normal objective neurologic exam. However, based on this clinical presentation, urgent neuroimaging was performed. A tier 2 code stroke was called to facilitate work- up. CT head shows no evidence of ischemia or hemorrhage. There is a mass involving the right cavernous sinus measuring approximately 2x 3 cm. 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 CTA head and neck showed no dissection or high-grade stenosis. It was noted that the mass in the right cavernous sinus effaces and mildly narrows the right internal carotid artery. I did speak with stroke neurology early on and post imaging. The strokes been de-escalated and an MRI of the brain with and without contrast obtained. This read demonstrates a mass. There is an enhancing lesion centeredwithin the right cavernous sinus encasing the right anterior clinoid process consistent with a meningioma. This mass narrows the right optic canal and right optic nerve is asymmetrically small and hyperintense indicating compressive neuropathy with atrophy. It also encases and mildly narrows the rightinternal carotid artery. Neuro surgery consultation has been obtained. I have spoken with the [facility]. They advise f/u [facility] neurosurgery, clinic will assist with scheduling. Plan discharge home, early follow up to discuss definitive management. Diagnosis: ICD-10-CM 1. Meningioma (H) D32.9 Discharge Medications: New Prescriptions No medications on file Scribe Disclosure: I, Ellyady Otero, am serving as a scribe at 10:42 AM on 11/12/2021 to document services personally performed by Alber Farris MD based on my observations and the provider's statements to me. Alber Farris MD 11/13/21 1015 documented in this encounter Plan of Treatment Not on filedocumented as of this encounter Procedures Procedure Name [...] results section. documented in this encounter Results MR Brain w/o & w Contrast [...] Mass encases and mildly narrows the [facility]. 4. Recommend neurosurgical consultation. 5. No evidence of acute ischemia or hemo rrhage. ERIK LOUIS MD SYSTEM ID: ??[id number] Narrative 11/12/2021 1:36 PM CDT MRI BRAIN [...] hemo rrhage. ERIK LOUIS MD SYSTEM ID: [id number] Alber Farris MD IMG MRI ORDERABLES CT Head Perfusion w Contrast (11/12/2021 11:16 AM CDT) Anatomical Region Laterality Modality Head, SUBRAD CT NEURO, SUBRAD CT NEURO, P CT NEURO Computed Tomography Specimen (Source) Anatomical Location Collection Method / Collectio n Time Received Time / Laterality Volume Impressions 11/12/2021 11:46 AM CDT IMPRESSION: Unremarkable CT perfusion. ERIK LOUIS MD SYSTEM ID: ??[id number] Narrative 11/12/2021 11:[address] BRAIN [...] reconstruction technique. COMPARISON: None. Procedure Note Erik Luois MD - 11/12/2021F ormatting of this note [...] CT perfusion. ERIK LOUIS MD SYSTEM ID: [id number] Alber Farris MD G CT ORDERABLES CTA Head Neck w Contrast [...] high-grade stenosis. ERIK LOUIS MD SYSTEM ID: ??[id number] Narrative 11/12/2021 4:[address] ANGIOGRAM [...] ANGIOGRAM OF THE HEAD AND NECK WITH C SARAH 11/12/2021 11:09 AM HISTORY: Code stroke. TECHNIQUE: [...] high-grade stenosis. ERIK LOUIS MD SYSTEM ID: [id number] Alber Farris MD IMG CT ORDERABLES CT [...] on 11/12/2021. ERIK LOUIS MD SYSTEM ID: ??[id number] Narrative 11/12/2021 11:[address] SCAN [...] on 11/12/2021. ERIK LOUIS MD SYSTEM ID: [id number] Alber Farris MD IMG CT ORDERABLES Extra Purple Top Tube (11/12/2021 10:54 AM CDT) athologist Signature Hold Specimen JIC 11/12/2021 LABORATORY 12:08 PM CDT Specimen Anatomical Collection Method / Collection Time Recei lise Time (Source) Location / Volume Laterality Blood STRUCTURE OF LEFT Venipuncture / 11/12/2021 10:54 10/25 UPPER LIMB / Unknown AM CDT 10:58 AM CDT Unknown Alber Farris MD LAB - BLOOD ORDERABLES Performing Organization Address City/State/ZIP Code [place] [address] Care [facility] [address] Lab (1st floor, no room number) Extra Green Top ([place] Heparin) Tube (11/12/2021 10:54 AM CDT) athologist Signature Hold Specimen JI 11/12/2021 [facility] LABORATORY 12:08 PM CDT Specimen Anatomical Collection Method / Collection Time Recei lise Time (Source) Location / Volume Laterality Blood STRUCTURE OF LEFT Venipuncture / 11/12/2021 10:54 07/12/2021 UPPER LIMB / Unknown AM CDT 10:58 AM CDT Unknown Alber Farris MD LAB - BLOOD ORDERABLES Performing Organization Address City/[facility]/ZIP Code [place] [address] Care [facility] [address] Lab (1st floor, no room number) Extra Red Top Tube (11/12/2021 10:54 AM CDT) athologist Signature Hold Specimen [facility] 11/12/2021 [facility]AT[facility] 12:08 PM CDT Specimen Anatomical Collection Method / Collection Time Recei lise Time (Source) Location / Volume Laterality Blood STRUCTURE OF LEFT Venipuncture / 11/12/2021 10:54 07/12/2021 UPPER LIMB / Unknown AM CDT 10:58 AM CDT Unknown Alber Farris MD LAB - BLOOD ORDERABLES Performing Organization Address City/State/ZIP Code [place] [address] [facility] [address] Lab (1st floor, no room number) Extra Blue Top Tube (11/12/2021 10:54 AM CDT) athologist Signature Hold Specimen [facility] 11/12/2021 [facility]ORAT[facility] 12:08 PM CDT Specimen Anatomical Collection Method / Collection Time Recei lise Time (Source) Location / Volume Laterality Blood STRUCTURE OF LEFT Venipuncture / 11/12/2021 10:54 10/25 UPPER LIMB / Unknown AM CDT 10:58 AM CDT Unknown Alber Farris MD LAB - BLOOD ORDERABLES Performing Organization Address City/State/ZIP Code [place] [address] [facility] [address] Lab (1st floor, no room number) (ABNORMAL) Glucose by meter (11/12/2021 10:45 AM CDT) P athologist Signature GLUCOSE BY 121 (H) 70 - 99 11/12/2021 [facility] LABORATORY METER POCT mg/dL 10:52 AM CDT POC Specimen (Source) Anatomical Collection Method Collection Time Re ceived Time Location / / Volume Laterality Blood, Capillary BLOOD SPECIMEN / 11/12/2021 10:45 Unknown AM CDT 10:52 AM CDT Alber Farris MD LAB - BEAKER POCT Performing Organization Address City/State/ZIP Code Phon e Number [place] [address] Care Lab [address] Lab (1st floor, no room number) documented in this encounter Visit Diagnoses Diagnosis Meningioma (H) Benign neoplasm of cerebral meninges Vertigo Dizziness and giddiness documented in this encounter Administered Medications Inactive Administered Medications - up to 3 most recent administrations Medication Order MAR Action Action Date Dose Rate Site CT scan flush use Given 11/12/2021 11:00 AM CDT 95 mLs As instructed, 100 mL, ONCE, On Thu11/12/21 at 1100, For 1 dose, This entry is for use by Radiology to intermittently used as a flush in patients receiving a CT scan. gadobutrol (GADAVIST) injection 8.5 mL Given 11/12/2021 12:21 PM CDT 8.5 mLs 8.5 mL, Intravenous, ONCE, On Thu11/12/21 at 1210, For 1 dose iopamidol (ISOVUE-370) solution 500 mL Given 11/12/2021 10:59 AM CDT 125 mLs 500 mL, Intravenous, ONCE, On Thu11/12/21 at 1100, For 1 dose scopolamine Patch/Med Applied 11/12/2021 1:46 PM 1 patch Behind Right (TRANSDERM) 72 hr CDT Ear patch 1 patch 1 patch, Transdermal, EVERY 72 HOURS, Administer over 72 Hours, First dose on Thu11/12/21 at 1135, Apply patch to skin, behind ear. Remove every 72 hours. DO NOT CUT PATCH. If dose is for a half patch, RN to remove only half of the backing. Each 1.5 mg patch delivers 1 mg of scopolamine. Reminder: Remove previous patch before applying new patch. Patch/Med Applied 11/12/2021 12:11 PM CDT 1 patch Behind Right Ear scopolamine (TRANSDERM-SCOP) Patch in Pl melissa First dose on Thu11/12/21 at 1135, Chart every shift, confirming that patch is still in place on patient (no barcode scan needed). Se e patch order for dose information. documented in this encounter Active and Recently Administered Medications Times are shown in CDT. Scheduled Medication Order 11/10/2021 11/11/2021 11/12/2021 CT scan flush use (COMPLETED) 11 00 (Given - Provider: Abebe Crain) As instructed, 100 mL, ONCE, On 11/12 at 1100, For 1 dose, This entry is for use by Radiology to intermittently used as a flush in patients receiving a CT scan. gadobutrol (GADAVIST) injection 8.5 mL (COMPLETED) 1221 (Given - Provider: Ruperto Madrigal) 8.5 mL, Intravenous, ONCE, On Thu11/12/21 at 1210, For 1 dose iopamidol (ISOVUE-370) solution 500 mL (COMPLETED) 1059 (Given - Provider: Abebe Crain) 500 mL, Intravenous, ONCE, On Thu11/12/21 at 1100, For 1 dose scopolamine (TRANSDERM) 72 hr patch 1 patch(Linked Group 1) 1211 (Patch/Med Applied - Provider: Joselin Tripp RN)1310 (Patch/Med Removed - Provider: Joselin Tripp RN - Comment: patch removed in MRI)1346 (Patch/Med Applied - Provider: Joselin Tripp RN - Comment: Provider notified and okayed new patch) 1 patch, Transdermal, EVERY 72 HOURS, Ad prosthetic technician over 72 Hours, First dose on Thu11/12/21 at 1135, Apply patch to skin, behind ear. Remove every 72 hours. DO NOT CUT PATCH. If dose is for a half patch, 1430 (Patch/Med Removed - Provider: Joselin Tripp RN) RN to remove only half of the backing. E ach 1.5 mg patch delivers 1 mg of scopolamine. Reminder: Remove previous patch before applying new patch. scopolamine (TRANSDERM-SCOP) Patch in Place(Linked Group 1) 1212 (Patch in Place - Provider: Joselin Tripp, RN)1309 (Patch Free Period - Provider: Joselin Tripp, RN - Comment: Patch removed in MRI)1346 (Patch in Place - Provider: Joselin Tripp RN) First dose on Thu11/12/21 at 1135, Chart every shift, confirming that patch is still in place on patient (no barcode scan needed). See patch order for dose information. 1430 (Patch Free Per iod - Provider: Joselin Tripp RN - Comment: provider removed) Linked Groups Order Group 1: scopolamine (TRANSDERM) 72 hr patch 1 patchJump to med 1 patch, Transdermal, EVERY 72 HOURS, Ad prosthetic technician over 72 Hours, First dose on Thu11/12/21 at 1135
Apply patch to skin, behind ear. Remove every 72 hours. DO NOT CUT PATCH. If dose is for a half patch, RN to remove only half of the backing. Each 1.5 mg patch delivers 1 mg of scopolamine. Reminder: Remove previous patch before applying new patch.
And scopolamine (TRANSDERM-SCOP) Patch in PlaceJump to med First dose on Thu11/12/21 at 1135
Leanna rt every shift, confirming that patch is still in place on patient (no barcode scan needed). See patch order for dose information.
documented in this encounter Additional Health Concerns Assessment Noted Time PHQ-9 Depression Total Score: 7 08/12/2021 11:54 AM CD T documented as of this encounter Care Teams Press Operator [employer] Relationship Specialty Start Date End Date Francia Nair MD PCP - General Internal Medicine 01/28/[address] [place], [place] [id number] Francia Nair MD Assigned PCP 01/07/[address] [place], [place] [address] Julieth Montes Assigned Surgical 03/17/21 Purnima, LEANA Provider [facility] [facility] [address] [place] [id number] Alber Mendez MD Assigned Heart and 08/11/21 [address] Vascular Provider [place] [id number] documented as of this encounter
--- OUTSIDE RECORDS SUMMARY | 2022-01-30 11:34 | XMS_ITS | Encounter Summary ---
:1960 Author Organization [facility] Address [address] [place] [address]. [place] [address] Care Team Providers Name Role Phone Francia Nair MD Primary Care Provider Francia Nair MD Unavailable Julieth Montes OD Unavailable [phone] Ip, Alber Vuong MD Unavailable Reason for Visit Reason Onset Date Comments Establish Care 01/06/2022 Encounter Details Date Type Department Care Team Description 01/06/2022 Telephone [facility] Zenaida Virgen, SPINNER OPERATOR TRAIN STATION SERVER Establish Care [place] [address] [facility] [address] [address] [facility] [place] [address] [phone] Social History Tobacco Use Types Packs/Day Years [...] 08/12/2021 relatives? How often do you attend pentecostal or judaism Never 08/12/2021 services? Do you belong to any clubs or organizations such as Yes 08/12/2021 pentecostal groups, unions, fraternal or athletic groups, [...] Date Recorded Female 10/16/2020 6:22 PM CDT documented as of this encounter Miscellaneous Notes Telephone Encounter - Betsy Delong RN - 01/06/2022 1:17 PM CDT Patient will see Lindy DELANEY FriAndrew 01/10/22 per provider. Patient advised. Ronald Delong R.N. Telephone Encounter - Betsy Delong RN - 01/06/2022 8:16 AM CDT Patient calling in tears, states she was recently diagnosed with an inoperable brain tumor for which she goes to [place]. She has chronic dizziness and sees a specialist/therapist for that. She is asking to establish care with a provider who is more accessible than her current provider for management of hypertension, anxiety and depression. Lindy, can you see this patient some time this week to establish care? Ronald Delong R.N. documented in this encounter Plan of Treatment Not on filedocumented as of this encounter Visit Diagnoses Not on filedocumented in this encounter Additional Health Concerns Assessment Noted Time PHQ-9 Depression Total Score: 7 08/12/2021 11:54 AM CD T documented as of this encounter Care Teams Corrections Caseworker Relationship Specialty Start Date End Date Francia Nair MD PCP - General Internal Medicine 01/28/13 [address] [place], [place] [phone] Francia Nair MD Assigned PCP 01/07/13 [address] [place] [id number] Julieth Montes Assigned Surgical 03/17/21 Purnima, LEANA Provider [address] [facility] [address] [address] Alber Mendez MD Assigned Heart and 08/11/21 [address] Vascular Provider [place] BERNARD [id number] documented as of this encounter
--- OUTSIDE RECORDS SUMMARY | 2022-01-30 11:34 | XMS_ITS | Encounter Summary ---
:1960 Author Organization [facility] Address [address] [place] [address]. [place] [address] Care Team Providers Name Role Phone Francia Nair MD Primary Care Provider Francia Nair MD Unavailable Julieth Montes OD Unavailable [phone] Ip, Alber Vuong MD Unavailable Reason for Visit Reason Comments Follow Up BP Follow up. Want blood wor k. Fasting. Talk about colitis issue which started during chel. Encounter Details Date Type Department Care Team Description 08/29/2021 Office Visit [facility] Francia Nair MD Benign essential hypertension (Primary D x); [facility] [address] Mild episode of recurrent ma braxton depressive disorder (H); [address] Acute colitis; [place], [place] Anxiety; [place] [address] Eczema, unspecified type; [id number] Hyperlipidemia LDL goal <130 Social History Tobacco Use Types Packs/Day Years [...] 08/12/2021 relatives? How often do you attend mu-ism or confucianism Never 08/12/2021 services? Do you belong to any clubs or organizations such as Yes 08/12/2021 mu-ism groups, unions, fraternal or athletic groups, or [...] Sign Reading Time Taken Comments Blood Pressure 135/89 08/29/2021 8:45 AM CDT Pulse 76 08/29/2021 8:45 AM CDT Temperature 36.3 ??C (97.4 ??F) 08/29/2021 8:45 AM CDT Respiratory Rate 16 08/29/2021 8:45 AM CDT Oxygen Saturation 98% 08/29/2021 8:45 AM CDT Inhaled Oxygen Concentration - - Weight 85 kg (187 lb 6.4 oz) 08/29/2021 8:45 AM CDT Height 163.8 cm (5' 4.5) 08/29/2021 8:45 AM CDT Body Mass Index 31.67 08/29/2021 8:45 AM CDT documented in this encounter Progress Notes Francia Nair MD - 08/29/2021 9:00 AM CDT Assessment & Plan Benign essential hypertension Adequately controlled, continue medication Mild episode of recurrent major depressive disorder (H) Depression has been improved, she is off the Prozac without any worsening Acute colitis Discussed different possible causes of acute colitis. She is improving gradually. Recommend continueEntocort until she sees GI next month, call if any significant increase Anxiety Currently more of a problem than the depression, sent the prescription for BuSpar to the pharmacy and indicated she is off Prozac so they will fill it - busPIRone (BUSPAR) 5 MG tablet; Take 1 tablet (5 mg) by mouth 2 times daily For 5 days, then 2 tabs(10 mg) 2 times daily Eczema, unspecified type Refill medication - triamcinolone (KENALOG) 0.1 % external cream; Apply topically 2 times daily Hyperlipidemia LDL goal <130 Stable diet, most Posta return for recheck but for now will delay this while she is working on the colitis, recheck in the fall with her wellness visit 35 minutes spent the day of the visit on E&M, chart review, documentation Return in about 7 months (around 03/15/2022) for Wellness visit. Francia Nair MD [facility] Brody Avalos is a 61 year old who presents for the following health issues accompanied by her spouse. HPI Hypertension Follow-up She had been checking her blood pressure prior to having the acute colitis and blood pressures were well controlled. They had increased with the colitis but are improving now. ?? Do you check your blood pressure regularly outside of the clinic? No ?? Are you following a low salt diet? No ?? Are your blood pressures ever more than 140 on the top number (systolic) OR more than 90 on the bottom number (diastolic), for example 140/90? No ?? How many servings of fruits and vegetables do you eat daily? 2-3 ?? On average, how many sweetened beverages do you drink each day (Examples: soda, juice, sweet tea,etc. Do NOT count diet or artificially sweetened beverages)? 0 ?? How many days per week do you exercise enough to make your heart beat faster? 5 ?? How many minutes a day do you exercise enough to make your heart beat faster? 30 - 60 ?? How many days per week do you miss taking your medication? 0 Other problems: 1. Acute colitis: She had presented on 08/12/2021 with abdominal pain, diarrhea with blood. She was evaluated at the [facility] where CT suggested acute colitis. She had stool test which were negative for bacteria and viruses so was not treated. She had called in with continued significant symptoms a few daysafter that visit and started Entocort. She did see colorectal but they did not feel there was anything they needed to do, she does have a GI follow-up appointment in September. She reports that her symptomsare improved, her bowels are not back to normal, she has some discomfort, slight bloating but not really pain. No further bleeding. She has been mostly taking liquids or soft foods. She had questions ab out the urine showing blood, this was only on dipstick. 2. Major depression and anxiety: We were trying to change her from fluoxetine to buspirone because her depression was controlled and anxiety was the main problem. She has been off Prozac for 12 days but reports that the pharmacy would not fill the buspirone because they were concerned about interactions between BuSpar and Prozac. 3. Eczema: She needs a refill of her medication. Current Concerns: none Patient Active Problem List Diagnosis ??? Tobacco use disorder ??? Benign essential hypertension ??? Obesity ??? ADD (attention deficit disorder) ??? Major depression, recurrent (H) ??? Controlled substance agreement signed. STAFFING AND SCHEDULING COORDINATOR-ok- 01/27/20 ??? Gastroesophageal reflux disease with esophagitis ??? Blood glucose abnormal ? ? Hyperlipidemia LDL goal <130 ??? Prolonged QT interval ??? Anxiety ??? Bilateral incipient cataracts ??? Corneal epithelial and basement membrane dystrophy Current Outpatient Medications Medication Sig Dispense Refill ??? acetaminophen (TYLENOL) 500 MG tablet Take 500-1,000 mg by mouth every 6 hours as needed for mild pain ??? albuterol (PROAIR HFA/PROVENTIL HFA/VENTOLIN HFA) 108 (90 Base) MCG/ACT inhaler Inhale 2 puffs into the lungs every 6 hours as needed for shortness of breath / dyspnea or wheezing 18 g 11 ??? budesonide (ENTOCORT EC) 3 MG EC capsule Take 2 capsules (6 mg) by mouth every morning 20 capsule 0 ??? lactobacillus rhamnosus, GG, (CULTURELL) capsule Take 1 capsule by mouth 2 times daily ??? lisinopril-hydrochlorothiazide (ZESTORETIC) 10-12.5 MG tablet Take 1 tablet by mouth daily 90 tablet 3 ??? triamcinolone (KENALOG) 0.1 % external cream Apply topically 2 times daily 30 g 3 ??? busPIRone (BUSPAR) 5 MG tablet Take 1 tablet (5 mg) by mouth 2 times daily For 5 days, then 2 tabs(10 mg) 2 times daily (Patient not taking: Reported on 08/29/2021) 90 tablet 0 Social History Tobacco Use ??? Smoking status: Former Smoker Packs/day: 1.00 Types: Cigarettes Start date: 12/26/1977 Quit date: 05/10/2018 Years since quittin.3 ??? Smokeless tobacco: Never Used ??? Tobacco comment: 06/28 PPD- Substance Use Topics ??? Alcohol use: Yes Comment: ocassional 3-4 drinks per month Review of Systems No fever, chills, nausea, vomiting, chest pain, palpitations Objective BP 135/89 (BP Location: Left arm, Patient Position: Sitting, Cuff Size: Adult Large) Pulse 76 Temp 97.4 ??F (36.3 ??C) (Oral) Resp 16 Ht 1.638 m (5' 4.5) Wt 85 kg (187 lb 6.4 oz) SpO2 98% BMI 31.67 kg/m?? Body mass index is 31.67 kg/m??. Physical Exam Not examined. PHQ 03/05/2020 10/18/2020 08/12/2021 PHQ-9 Total Score 7 5 7 Q9: Thoughts of better off /self-harm past 2 weeks Not at all Not at all Not at all MORENA-7 SCORE 07/25/2016 03/05/2020 08/12/2021 Total Score - - - Total Score 5 8 10 documented in this encounter Nursing Notes Noé Florian MA - 08/29/2021 9:00 AM CDT BP (!) 135/91 (BP Location: Left arm, Patient Position: Sitting, Cuff Size: Adult Large) Pulse 76 Temp 97.4 ??F (36.3 ??C) (Oral) Resp 16 Ht 1.638 m (5' 4.5) Wt 85 kg (187 lb 6.4 oz) SpO2 98% BMI 31.67 kg/m?? documented in this encounter Plan of Treatment Not on filedocumented as of this encounter Visit Diagnoses Diagnosis Benign essential hypertension - Primary Essential hypertension, benign Mild episode of recurrent major depressi ve disorder (H) Acute colitis Other and unspecified noninfectious fior roenteritis and colitis Anxiety Anxiety state, unspecified Eczema, unspecified type Hyperlipidemia LDL goal <130 Other and unspecified hyperlipidemia documented in this encounter Additional Health Concerns Assessment Noted Time PHQ-9 Depression Total Score: 7 08/12/2021 11:54 AM CD T documented as of this encounter Care Teams Payer Specialist Relationship Specialty Start Date End Date Francia Nair MD PCP - General Internal Medicine 01/28/[address] [place], [place] [phone] Francia Nair MD Assigned PCP 01/07/[address] [place] [phone] Julieth Montes Assigned Surgical 03/17/21 LEANA Felton Provider [address] [facility] [address] [id number] Alber Mendez MD Assigned Heart and 08/11/21 [address] Vascular Provider [place] BERNARD [id number] documented as of this encounter
--- OUTSIDE RECORDS SUMMARY | 2022-01-30 11:34 | XMS_ITS | Encounter Summary ---
:1960 Author Organization [place] Address [facility] [place] [address] Care Team Providers Name Role Phone Francia Nair MD Primary Care Provider Francia Nair MD Unavailable Julieth Montes OD Unavailable [phone] Reason for Referral CV Testing (Routine) - Authorized Specialty Diagnoses / Procedures Referred By Contact Refer red To Contact Diagnoses Shortness of breath Ip, Alber Vuong MD Procedures Exercise Stress Echocardiogram ZZHC DOPPLER ECHO PULSED, F/U OR LIMITED [facility] DOPPLER ECHO COLOR FLOW VELOCITY MAP [facility] ECHO HEART XTHORACIC, STRESS/REST [facility] ECHO TRANSTHORACIC, STRESS/REST W CONTRAST [address] [facility] ECHO TRANSTHORACIC, STR ESS/REST W/O CONTRAST [facility] IV PUSH SINGLE, INITIAL SUBSTANCE ZZC INJECTION, PERFLUTREN LIPID MICROSPHERES, PER ML [facility] STATISTIC IV PUSH SINGLE INITIAL SUBSTANCE LA DOPPLER ECHO PULSED, F/U OR LIMITED [place] [id number] [place] DOPPLER ECHO COLOR FLOW V ELOCITY MAP LA ECHO HEART XTHORACIC, STRESS/REST LA INJECTION, PERFLUTREN LIPID MICROSPHERES, PER ML LA IV PUSH SINGLE, INITIAL SUBSTANCE LA ECHO HEART XTHORACIC, STRESS/REST LA ECHO HEART XTHORACIC, STRESS/REST HC DOPPLER ECHO PULSED, F/U OR LIMITED HC DOPPLER ECHO COLOR FLOW VELOCITY MAP HC IV PUSH SINGLE, INITIAL SUBSTANCE HC STATISTIC IV PUSH SINGLE INITIAL SUBSTANCE HC ECHO TRANSTHORACIC, STRESS/REST W CONTRAST HC ECHO TRANSTHORACIC, STRESS/REST W/O CONTRAST Referral ID Status Reason Start Date Expiration Date Visits V isits Requested Authorized [id number] Authorized 08/01/2021 08/01/2022 1 1 Reason for Visit Reason Comments New Patient Follow Up from ED visit Hypertension Encounter Details Date Type Department Care Team Description 08/01/[address] [facility] Vanessa, Alber Coyne Shortness of breath Heart Clinic Valencia Vuong MD (Primary Dx) [address] [facility] [address] [facility] [address] [place] [address] [place] [id number] Social History Tobacco Use Types Packs/Day Years [...] 08/12/2021 relatives? How often do you attend christian or islam Never 08/12/2021 services? Do you belong to any clubs or organizations such as Yes 08/12/2021 christian groups, unions, fraternal or athletic groups, or [...] or slept in a fci (including now)? Sex Assigned at Date Recorded Female 10/16/2020 6:22 PM CDT COVID-19 Exposure Response Date Recorded In the last month, have you been in contact with No / Unsure 08/01/2021 8:36 AM CDT someone who was confirmed or suspected to have Coronavirus / COVID-19? documented as of this encounter Last Filed Vital Signs Vital Sign Reading Time Taken Comments Blood Pressure 144/86 08/01/2021 8:54 AM CDT Pulse 84 08/01/2021 8:54 AM CDT Temperature - - Respiratory Rate - - Oxygen Saturation 95% 08/01/2021 8:52 AM CDT room ai r Inhaled Oxygen Concentration - - Weight 89.9 kg (198 lb 1.6 oz) 08/01/2021 8:52 AM CDT Height 163.8 cm (5' 4.5) 08/01/2021 8:52 AM CDT Body Mass Index 33.48 08/01/2021 8:52 AM CDT documented in this encounter Progress Notes Ip, Alber Vuong MD - 08/01/2021 8:45 AM CDT HPI and Plan: Very pleasant 61-year-old lady accompanied by her spouse and she is here for cardiac evaluation. No history of coronary artery disease heart failure but does have hypertension dyslipidemia and alsoprediabetes. With regards to the latter she is not able to tolerate Metformin. Family history is negative for premature atherosclerotic disease. She is a former smoker gave her a pack years ago. There is no history of alcohol or drug abuse She went to the emergency room recently for blood pressure 177. An EKG there was interpreted by the computer as possible lateral ischemia. I personally reviewed the EKG. There is some baseline instability but the ST and T wave changes are nonspecific I reassured her that there is no evidence for lateral ischemia. Does have history of long QT and was seen at the [facility]. She was told that this wasdue to some of her medications. She is on Prozac for anxiety depression. Has noticed more shortness of breath on exertion. She is starting to exercise and this is when she would feel out of breath. Otherwise no PND orthopnea exertional chest discomfort ankle swelling. No history of lung disease Cardiac examination is unremarkable. Blood pressure is mildly elevated. She has been recording her blood pressures multiple times at home and some of these readings are elevated She has been recommended to start a statin. I calculated her risk on the ACC risk calculator. I gaveher an optimistic score assuming she is not a smoker and does not have diabetes the 10-year risk comes out at 8.4% and I think there is a strong recommendation for starting her on a statin especially as her total cholesterol is 244 with HDL 48 and LDL 159. I think a low-dose statin just 3 times a weekwould nicely bring her LDL down to around 100 or less which I think is all we need unless her stresstest shows inducible ischemia. With regards to this I will request a stress echocardiogram to evaluate her shortness of breath chest to exclude significant ischemia. Talk about her blood pressure. I think her blood pressure is probably mildly elevated and she is just taking Zestoretic. Body mass index is around 33 and I am sure with weight loss regular exercise low-salt diet her blood pressure should be well controlled. If not in addition of amlodipine would complement her current medication regimen very nicely. I will let her know the results of her stress test and arrange follow-up as necessary. Otherwise I will leave management of her cardiac risk factors in the capable hands of her primary care physicians. Orders Placed This Encounter Procedures ??? Exercise Stress Echocardiogram No orders of the defined types were placed in this encounter. Encounter Diagnosis Name Primary? Shortness of breath Yes CURRENT MEDICATIONS: Current Outpatient Medications Medication Sig Dispense Refill ??? acetaminophen (TYLENOL) 500 MG tablet Take 500-1,000 mg by mouth every 6 hours as needed for mild pain ??? albuterol (PROAIR HFA/PROVENTIL HFA/VENTOLIN HFA) 108 (90 Base) MCG/ACT inhaler Inhale 2 puffs into the lungs every 6 hours as needed for shortness of breath / dyspnea or wheezing 18 g 11 ??? FLUoxetine (PROZAC) 10 MG capsule Taper fluoxetine over 30 days as directed 36 capsule 0 ??? lisinopril-hydrochlorothiazide (ZESTORETIC) 10-12.5 MG tablet Take 1 tablet by mouth daily 90 tablet 3 ??? triamcinolone (KENALOG) 0.1 % external cream Apply topically 2 times daily 30 g 3 ??? FLUoxetine (PROZAC) 10 MG capsule Take 1 capsule (10 mg) by mouth daily for 7 days, THEN 2 capsules (20 mg) daily for 7 days, THEN 4 capsules (40 mg) daily for 16 days. 85 capsule 0 ??? FLUoxetine (PROZAC) 40 MG capsule Take 1 capsule (40 mg) by mouth daily (Patient not taking: Reported on 08/01/2021) 90 capsule 3 ALLERGIES Allergies Allergen Reactions ??? No Known Drug Allergies ??? Varenicline PN: LW Reaction: nightmare PAST MEDICAL HISTORY: Past Medical History: Diagnosis Date ??? ADD (attention deficit disorder) ??? Diabetes (H) Pre-Diabetic ??? Hypertension ??? Major depression ??? QT prolongation Medication induced PAST SURGICAL HISTORY: Past Surgical History: Procedure Laterality Date ??? COLONOSCOPY N/A 11/05/2015 Procedure: COMBINED COLONOSCOPY, SINGLE OR MULTIPLE BIOPSY/POLYPECTOMY BY BIOPSY; Surgeon: Vic Helm MD, MD; Location: [facility] ??? COLONOSCOPY N/A 04/05/2021 Procedure: COLONOSCOPY, WITH POLYPECTOMY by using cold forcep; Surgeon: Kenny Dahl MD; Location: [facility] ??? HYSTERECTOMY, ALESSANDRO has ovaries ??? ZZC NONSPECIFIC PROCEDURE SBO w/ 3 resected FAMILY HISTORY: Family History Problem Relation Age of Onset ??? Heart Disease Father CHF ??? Breast Cancer Maternal Grandmother ??? Diabetes Maternal Grandmother Type 1 ??? Heart Failure Mother ??? Diabetes Paternal Aunt ??? Colon Cancer No family hx of SOCIAL HISTORY: Social History Socioeconomic History ??? Marital status: Spouse name: None ??? Number of children: 1 ??? Years of education: None ??? Highest education level: None Occupational History Employer: [employer] Tobacco Use ??? Smoking status: Former Smoker Packs/day: 1.00 Types: Cigarettes Start date: 12/26/1977 Quit date: 05/10/2018 Years since quittin.2 ??? Smokeless tobacco: Never Used ??? Tobacco comment: 3/4 PPD- Substance and Sexual Activity ??? Alcohol use: Yes Comment: ocassional 3-4 drinks per month ??? Drug use: No Comment: none ??? Sexual activity: Yes Partners: Female Other Topics Concern ??? Parent/sibling w/ CABG, SD or angioplasty before 65F 55M? Not Asked Social History Narrative ??? None Social Determinants of Health Financial Resource Strain: Not on file Food Insecurity: Not on file Transportation Needs: Not on file Physical Activity: Not on file Stress: Not on file Social Connections: Not on file Intimate Partner Violence: Not on file Housing Stability: Not on file Review of Systems: Skin: Negative Eyes: Negative ENT: Negative Respiratory: Positive for dyspnea on exertion Cardiovascular: chest pain;Negative;dizziness palpitations;Positive for;edema;lightheadedness Gastroenterology: Negative Genitourinary: Negative Musculoskeletal: Negative back pain;neck pain Neurologic: Positive for numbness or tingling of hands;numbness or tingling of feet Psychiatric: Negative Heme/Lymph/Imm: Positive for allergies Endocrine: Negative Physical Exam: Vitals: BP (!) 144/86 (BP Location: Right arm, Patient Position: Sitting) Pulse 84 Ht 1.638 m (5' 4.5) Wt 89.9 kg (198 lb 1.6 oz) SpO2 95% BMI 33.48 kg/m?? Constitutional: cooperative, alert and oriented, well developed, well nourished, in no acute distress Skin: warm and dry to the touch, no apparent skin lesions or masses noted Head: normocephalic, no masses or lesions Eyes: pupils equal and round, conjunctivae and lids unremarkable, sclera white, no xanthalasma, EOMSintact, no nystagmus Lymph:No Cervical lymphadenopathy present ENT: no pallor or cyanosis, dentition good Neck: carotid pulses are full and equal bilaterally, JVP normal, no carotid bruit Respiratory: normal breath sounds, clear to auscultation, normal A-P diameter, normal symmetry, normal respiratory excursion, no use of accessory muscles Cardiac: regular rhythm, normal S1/S2, no S3 or S4, apical impulse not displaced, no murmurs, gallops or rubs pulses full and equal, no bruits auscultated GI: abdomen soft, non-tender, BS normoactive, no mass, no HSM, no bruits Extremities and Muscular Skeletal: no deformities, clubbing, cyanosis, erythema observed Neurological: no gross motor deficits Psych: Alert and Oriented x 3 Recent Lab Results: LIPID RESULTS: Lab Results Component Value Date CHOL 244 (H) 03/14/2021 CHOL 230 (H) 03/01/2020 HDL 48 (L) 03/14/2021 HDL 46 (L) 03/01/2020 LDL 159 (H) 03/14/2021 LDL 150 (H) 03/01/2020 TRIG 186 (H) 03/14/2021 TRIG 171 (H) 03/01/2020 CHOLHDLRATIO 4.9 08/12/2013 LIVER ENZYME RESULTS: Lab Results Component Value Date AST 12/15/2011 AST 12/15/2011 ALT 43 12/15/2011 ALT 43 12/15/2011 CBC RESULTS: Lab Results Component Value Date WBC 8.3 06/28/2021 WBC 7.3 01/11/2019 RBC 4.66 06/28/2021 RBC 3.95 01/11/2019 HGB 14.1 06/28/2021 HGB 12.4 01/11/2019 HCT 44.0 06/28/2021 HCT 37.5 01/11/2019 MCV 94 06/28/2021 MCV 95 01/11/2019 MCH 30.3 06/28/2021 MCH 31.4 01/11/2019 MCHC 32.0 06/28/2021 MCHC 33.1 01/11/2019 RDW 12.6 06/28/2021 RDW 12.9 01/11/2019 PLT 320 06/28/2021 PLT 282 01/11/2019 BMP RESULTS: Lab Results Component Value Date NA 137 06/28/2021 NA 136 03/01/2020 POTASSIUM 3.9 06/28/2021 POTASSIUM 4.0 03/01/2020 CHLORIDE 102 06/28/2021 CHLORIDE 103 03/01/2020 CO2 28 06/28/2021 CO2 27 03/01/2020 ANIONGAP 7 06/28/2021 ANIONGAP 6 03/01/2020 GLC 119 (H) 06/28/2021 GLC 109 (H) 03/01/2020 BUN 14 06/28/2021 BUN 15 03/01/2020 CR 0.61 06/28/2021 CR 0.68 03/01/2020 GFRESTIMATED >90 06/28/2021 GFRESTIMATED >90 03/01/2020 GFRESTBLACK >90 03/01/2020 SHAN 9.9 06/28/2021 SHAN 9.3 03/01/2020 A1C RESULTS: Lab Results Component Value Date A1C 5.8 (H) 03/14/2021 A1C 6.4 (H) 03/01/2020 INR RESULTS: No results found for: INR CC Referred MD Gumaro No address on file documented in this encounter Plan of Treatment Scheduled Orders Name Type Priority Associated Order Schedule Diagnoses Exercise Stress Echocardiography Routine Shortness of breath E xpected: Echocardiogram 08/08/2021 (Approximate), Expires: 08/01/2022 documented as of this encounter Visit Diagnoses Diagnosis Shortness of breath - Primary documented in this encounter Additional Health Concerns Assessment Noted Time PHQ-9 Depression Total Score: 5 10/18/2020 8:15 AM CDT documented as of this encounter Care Teams Stripper Machine Operator Relationship Specialty Start Date End Date Francia Nair MD PCP - General Internal Medicine 01/28/13 [address] [place], [place] [address] Francia Nair MD Assigned PCP 01/07/13 [address] [place], [place] [address] Julieth Montes Assigned Surgical 03/17/21 LEANA Felton Provider [address] [place] [address] [place] [id number] documented as of this encounter
--- OUTSIDE RECORDS SUMMARY | 2022-01-30 11:34 | XMS_ITS | Encounter Summary ---
:1960 Author Organization [place] Address [address] [place] [address] Care Team Providers Name Role Phone Francia Nair MD Primary Care Provider Francia Nair MD Unavailable Julieth Montes OD Unavailable [phone] Ip, Alber Vuong MD Unavailable Encounter Details Date Type Department Care Team Description 11/12/2021 Travel Social History Tobacco Use Types Packs/Day [...] Comment: ocassional 3-4 drinks per month 06/14/19 Social Isolation Answer Date Recorded In a typical week, how many times do you talk on the Three t imes a week 08/12/2021 phone with family, friends, or neighbors? How often do you get together with friends or Once a week 08/12/2021 relatives? How often do you attend confucianism or jewish Never 08/12/2021 services? Do you belong to any clubs or organizations such as Yes 08/12/2021 confucianism groups, unions, fraternal or athletic groups, or [...] as of this encounter Care Teams Clinical Study Manager Relationship Specialty Start Date End Date Francia Nair MD PCP - General Internal Medicine 01/28/[address] [place], [place] [phone] Francia Nair MD Assigned PCP 01/07/[address] [place], [place] [address] Julieth Montes Assigned Surgical 03/17/21 LEANA Felton Provider [address] [place] [address] [place] [id number] Alber Mendez MD Assigned Heart and 08/11/21 [address] Vascular Provider [place] [id number] documented as of this encounter
--- OUTSIDE RECORDS SUMMARY | 2022-01-30 11:34 | XMS_ITS | Encounter Summary ---
:1960 Author Organization [place] Address [address] [place] [address]. [place] [address] Care Team Providers Name Role Phone Francia Nair MD Primary Care Provider Francia Nair MD Unavailable Julieth Montes OD Unavailable [phone] Ip, Alber Vuong MD Unavailable Reason for Visit Reason Onset Date Comments Appointment 11/12/2021 Meningioma Encounter Details Date Type Department Care Team Description 11/12/2021 Telephone [facility] None Appointmen t (Meningioma) Neurosurgery Clinic [place] [phone] Social History Tobacco Use Types Packs/Day Years [...] 08/12/2021 relatives? How often do you attend zoroastrian or tenriism Never 08/12/2021 services? Do you belong to any clubs or organizations such as Yes 08/12/2021 zoroastrian groups, unions, fraternal or athletic groups, or [...] this encounter Miscellaneous Notes Telephone Encounter - Johana Durham - 11/14/2021 2:59 PM CDT Insurance Examining Clerk spoke with pt and scheduled a visit with Dr. Morris for 11/26 Johana Durham Telephone Encounter - Claudine Rollins - 11/12/2021 3:22 PM CDT Health Call Center Phone Message May a detailed message be left on voicemail: yes Reason for Call: Appointment Intake Referring Provider Name: Dr. Rivers Diagnosis and/or Symptoms: Meningioma Robbie was seen in the ED today and was informed by Dr. Rivers to be seen tyler for her meningioma. Please call Estephanie to discuss scheduling options. Action Taken: Message routed to: [facility] ([facility] Travel Screening: Not Applicable documented in this encounter Plan of Treatment Not on filedocumented as of this encounter Visit Diagnoses Not on filedocumented in this encounter Additional Health Concerns Assessment Noted Time PHQ-9 Depression Total Score: 7 08/12/2021 11:54 AM CD T documented as of this encounter Care Teams Sales Incentive Analyst Relationship Specialty Start Date End Date Francia Nair MD PCP - General Internal Medicine 01/28/13 [address] [place], [place] [address] Francia Nair MD Assigned PCP 01/07/13 [address] [place] [address] Julieth Montes Assigned Surgical 03/17/21 LEANA Felton Provider [address] [facility] [place] [id number] Alber Mendez MD Assigned Heart and 08/11/21 [address] Vascular Provider [place] [id number] documented as of this encounter
--- OUTSIDE RECORDS SUMMARY | 2022-01-30 11:34 | XMS_ITS | Encounter Summary ---
:1960 Author Organization [place] Address [address] [place] [address]. [place] [address] Care Team Providers Name Role Phone Francia Nair MD Primary Care Provider Francia Nair MD Unavailable Julieth Montes OD Unavailable [phone] Ip, Alber Vuong MD Unavailable Reason for Visit Reason Comments Medication Refill Encounter Details Date Type Department Care Team Description 01/03/2022 Refill [facility] Kin Nair MD Medication Refill [facility] [address] [facility] [address] [place] [address] [facility] [place] [address] [phone] Social History Tobacco Use Types Packs/Day Years [...] occasion? Comment: ocassional 3-4 drinks per month 02/18/20 19 Social Isolation Answer Date Recorded In a typical week, how many times do you talk on the Three t imes a week 08/12/2021 phone with family, friends, or neighbors? How often do you get together with friends or Once a week 08/12/2021 relatives? How often do you attend episcopalian or christian Never 08/12/2021 services? Do you belong to any clubs or organizations such as Yes 08/12/2021 episcopalian groups, unions, fraternal or athletic groups, or [...] place to sleep or slept in a long-term (including now)? Sex Assigned at Date Recorded Female 10/16/2020 6:22 PM CDT documented as of this encounter Miscellaneous Notes Telephone Encounter - Hannah Kaye RN - 01/06/2022 4:39 PM CDT Too soon to refill E-Prescribing Status: Receipt confirmed by pharmacy (03/14/2021 10:04 AM LPN OR MEDICAL ASSISTANT) Hannah Delgadillo RN, BSN documented in this encounter Plan of Treatment Not on filedocumented as of this encounter Visit Diagnoses Diagnosis Benign essential hypertension Essential hypertension, benign documented in this encounter Additional Health Concerns Assessment Noted Time PHQ-9 Depression Total Score: 7 08/12/2021 11:54 AM CD T documented as of this encounter Care Teams Splitter Head Relationship Specialty Start Date End Date Francia Nair MD PCP - General Internal Medicine 01/28/13 [address] [place] [address] Francia Nair MD Assigned PCP 01/07/13 [address] [place] [address] Julieth Montes Assigned Surgical 03/17/21 LEANA Felton Provider [address] [facility] [place] [address] Alber Mendez MD Assigned Heart and 08/11/21 [address] Vascular Provider [place] [id number] documented as of this encounter
--- OUTSIDE RECORDS SUMMARY | 2022-01-30 11:34 | XMS_ITS | Encounter Summary ---
:1960 Author Organization [place] Address [address] [place] [address]. [place] [address] Care Team Providers Name Role Phone Francia Nair MD Primary Care Provider Francia Nair MD Unavailable Julieth Montes OD Unavailable [phone] Encounter Details Date Type Department Care Team Description 08/01/2021 Travel Social History Tobacco Use Types Packs/Day [...] 08/12/2021 relatives? How often do you attend worship or islam Never 08/12/2021 services? Do you belong to any clubs or organizations such as Yes 08/12/2021 worship groups, unions, fraternal or athletic groups, or [...] / COVID-19? documented as of this encounter Plan of Treatment Not on filedocumented as of this encounter Visit Diagnoses Not on filedocumented in this encounter Additional Health Concerns Assessment Noted Time PHQ-9 Depression Total Score: 5 10/18/2020 8:15 AM CDT documented as of this encounter Care Teams Burglar Alarm Superintendent Relationship Specialty Start Date End Date Francia Nair MD PCP - General Internal Medicine 01/28/13 [address] [place] [phone] Francia Nair MD Assigned PCP 01/07/13 [address] [place] [phone] Julieth Montes Assigned Surgical 03/17/21 LEANA Felton Provider [address] [place] [address] [place] [id number] documented as of this encounter
--- OUTSIDE RECORDS SUMMARY | 2022-01-30 11:34 | XMS_ITS | Encounter Summary ---
:1960 Author Organization [place] Address [address] [place] [address]. [place] [address] Care Team Providers Name Role Phone Francia Nair MD Primary Care Provider Francia Nair MD Unavailable Julieth Montes OD Unavailable [phone] Ip, Alber Vuong MD Unavailable Reason for Visit Reason Onset Date Comments *-*INCOMING RECORDS*-* 11/27/2021 Encounter Details Date Type Department Care Team Description 11/27/2021 PRE VISIT [facility] Javier Morris *[facility]*-* Neurosurgery Clinic MD Hermelindo [address] [address] [place], [place] [phone] (Work) [phone] Social History Tobacco Use Types Packs/Day Years Used Date Former Smoker Cigarettes 1 12/26/1977 - 0 05/10/2018 Smokeless Tobacco: Never Used Comments: 3/ PPD- Alcohol Use Standard Drinks/Week Comments Yes [...] 08/12/2021 relatives? How often do you attend methodist or amish Never 08/12/2021 services? Do you belong to any clubs or organizations such as Yes 08/12/2021 methodist groups, unions, fraternal or athletic groups, [...] or slept in a assisted (including now)? Sex Assigned at Date Recorded Female 10/16/2020 6:22 PM CDT COVID-19 Exposure Response Date Recorded In the last 10 days, have you been in contact with No / Unsu re 11/12/2021 10:32 AM CDT someone who was confirmed or suspected to have Coronavirus/COVID-19? documented as of this encounter Miscellaneous Notes Telephone Encounter - Patrica Lira - 11/18/2021 11:59 AM CDT RECORDS RECEIVED FROM: internal REASON FOR VISIT: hosp fu Date of Appt: 11/27/21 NOTES (FOR ALL VISITS) STATUS DETAILS OFFICE NOTE from referring provider Internal SEE INPATIENT NOTES DISCHARGE REPORT from the ER Internal [facility]: 11/12/21 MEDICATION LIST Internal IMAGING (FOR ALL VISITS) MRI (HEAD, NECK, SPINE) Internal [facility]: MRI Brain 11/12/21 CT (HEAD, NECK, SPINE) Internal [facility]: CT Head Perfusion 11/12/21 CTA Head Neck 11/12/21 CT Head 11/12/21 documented in this encounter Plan of Treatment Not on filedocumented as of this encounter Visit Diagnoses Not on filedocumented in this encounter Additional Health Concerns Assessment Noted Time PHQ-9 Depression Total Score: 7 08/12/2021 11:54 AM CD T documented as of this encounter Care Teams Supervisor Opening And Picking Relationship Specialty Start Date End Date Francia Nair MD PCP - General Internal Medicine 01/28/13 [address] [place] [address] Francia Nair MD Assigned PCP 01/07/13 [address] [place] [address] Julieth Montes Assigned Surgical 03/17/21 Purnima, LEANA Provider [address] [facility] [place] [address] Alber Mendez MD Assigned Heart and 08/11/21 [address] Vascular Provider [place] [id number] documented as of this encounter
--- OUTSIDE RECORDS SUMMARY | 2022-01-30 11:34 | XMS_ITS | Encounter Summary ---
:1960 Author Organization [facility] Address [address] [place] [address] Care Team Providers Name Role Phone Francia Nair MD Primary Care Provider Francia Nair MD Unavailable Julieth Montes OD Unavailable [phone] Ip, Alber Vuong MD Unavailable Reason for Referral Consultation (Routine: Next available opening) - Pending Review Specialty Diagnoses / Procedures Referred By Contact Refer red To Contact Colon and Rectal Diagnoses RLQ abdominal pain Hematochezia Mucus in stool Consuelo Swartz, COLON [facility] RECTAL Surgery [facility] [address] [place] [id number] [place] [address] Phone: Fax: Referral ID Status Reason Start Date Expiration Date Visits V isits Requested Authorized [id number] Pending 08/12/2021 08/12/2022 [address] Scan (Routine) - Closed Specialty Diagnoses / Procedures Referred By Contact Refer red To Contact Diagnoses RLQ abdominal pain Consuelo Swartz, KEREN Procedures CT Abdomen Pelvis w Contrast [address] [place] [address] Referral ID Status Reason Start Date Expiration Date Visits Requ ested Visits Authorized [id number] Closed 08/12/2021 08/12/2022 1 1 Reason for Visit Reason Comments Abdominal Pain X 3 days RLQ pain Consultation (Routine: Next available opening) - Closed Specialty Diagnoses / Procedures Referred By Contact Refer red To Contact Diagnoses RLQ abdominal pain Carina Kent PA-C [facility] [address] [place] [address] [address] [place] [address] Phone: Fax: Referral ID Status Reason Start Date Expiration Date Visits Requ ested Visits Authorized [id number] Closed 08/12/2021 08/12/2022 1 1 Encounter Details Date Type Department Care Team Description 08/12/[address] [facility] Consuelo Swartz, Chintan quintero (Primary Dx); Clinic Brian VELIZ RLQ abdominal pain; [address] [facility] Mucus in stool [address] [place], [place] [phone] Social History Tobacco Use Types Packs/Day Years [...] 08/12/2021 relatives? How often do you attend yazidi or zoroastrian Never 08/12/2021 services? Do you belong to any clubs or organizations such as Yes 08/12/2021 yazidi groups, unions, fraternal or athletic groups, or [...] place to sleep or slept in a usp (including now)? Sex Assigned at Date Recorded Female 10/16/2020 6:22 PM CDT COVID-19 Exposure Response Date Recorded In the last 10 days, have you been in contact with No / Unsu re 08/12/2021 11:03 AM CDT someone who was confirmed or suspected to have Coronavirus/COVID-19? documented as of this encounter Last Filed Vital Signs Vital Sign Reading Time Taken Comments Blood Pressure 114/76 08/12/2021 4:25 PM CDT Pulse 82 08/12/2021 2:53 PM CDT Temperature 37.3 ??C (99.1 ??F) 08/12/2021 2:53 PM CDT Respiratory Rate 18 08/12/2021 2:53 PM CDT Oxygen Saturation 98% 08/12/2021 2:53 PM CDT Inhaled Oxygen Concentration - - Weight 88 kg (194 lb) 08/12/2021 2:53 PM CDT Height - - Body Mass Index 32.79 08/12/2021 11:20 AM CDT documented in this encounter Patient Instructions AttachmentsThe following attachments cannot be sent through Care Everywhere. Abdominal Pain, Unknown Cause, (Female) (Citizen Of [place])documented in this encounter Progress Notes Consuelo Swartz PA-C - 08/12/2021 3:00 PM CDT Assessment & Plan RLQ abdominal pain Hematochezia Mucus in stool Stat imaging and laboratory studies unremarkable aside from possible mild sigmoid colitis and very mildly elevated CRP level. Due to subjective mucus in stool recommend stool cultures. Lengthy discussion with patient and spouse regarding infectious versus inflammatory etiology of colitis. Will complete stool cultures as soon as possible. Urine culture pending. Symptomatic relief with bland diet and milk of magnesia. Will avoid Pepto-Bismol as this is likely the cause of today's dark stool. Will schedule follow-up with colon and rectal later this week to review appropriate treatment strategy. Advised of warning signs and when to seek urgent care. Patient and spouse voiced understanding and agreement. - Referral to Acute and Diagnostic Services (Day of diagnostic / First order acute) - CBC with platelets differential - Comprehensive metabolic panel - Erythrocyte sedimentation rate auto - CRP inflammation - Lipase - CT Abdomen Pelvis w Contrast - Urine Culture Aerobic Bacterial - lab collect - Enteric Bacteria and Virus Panel by GUNNAR Stool - Ova and Parasite Exam Routine - Helicobacter pylori Antigen Stool - Colorectal Surgery Referral - TSH with free T4 reflex 43 minutes spent on the date of the encounter doing chart review, history and exam, documentation and further activities per the note Return in about 3 days (around 08/15/2021) for colorectal surgery evaluation. Consuelo Swartz PA-C [facility] BRIAN Avalos is a 61 year old who presents for the following health issues accompanied by her spouse. HPI Abdominal/Flank Pain Onset/Duration: X 3 days Description: Character: Sharp Location: right lower quadrant Radiation: Back Intensity: 5/10 Progression of Symptoms: worsening Accompanying Signs & Symptoms: Fever/Chills: YES- fever this AM in clinic today, low grade Gas/Bloating: YES- gas Nausea: no Vomitting: no Diarrhea: YES Constipation: no Dysuria or Hematuria: YES- hematuria found in UA, denies Dysuria History: Trauma: no Previous similar pain: no Previous tests done: YES- UA only Previous Abdominal Surgery: YES- hysterectomy Precipitating factors: Does the pain change with: Food: YES- increased discomfort Bowel Movement: no Urination: no Other factors: no Therapies tried and outcome: Pepto Bismuth X 1 yesterday, this helped a little.Notes bright red bloody Stool on 08/11/21 with mucus, last colonoscopy was 2-3 months ago, polyp removed (4 mm tubular adenoma) - no diverticulosis. Very dark stool today without bright red blood. Is s/p hysterectomy for fibroids in 2000. Had postop SBO that required hospitalization but no surgical intervention per pt report (however, chart mentions 3 inches of colon removed for SBO). Review of Systems Constitutional, HEENT, cardiovascular, pulmonary, GI, , musculoskeletal, neuro, skin, endocrine and psych systems are negative, except as otherwise noted. Objective BP 114/76 (BP Location: Right arm, Patient Position: Chair, Cuff Size: Adult Large) Pulse 82 Temp 99.1 ??F (37.3 ??C) (Oral) Resp 18 Wt 88 kg (194 lb) SpO2 98% BMI 32.79 kg/m?? Body mass index is 32.79 kg/m??. Physical Exam GENERAL: healthy, alert and no distress EYES: Eyes grossly normal to inspection RESP: lungs clear to auscultation - no rales, rhonchi or wheezes CV: regular rate and rhythm, normal S1 S2, no S3 or S4, no murmur, click or rub, no peripheral edemaand peripheral pulses strong ABDOMEN: soft, RLQ and R mid abdomen tenderness with guarding, no hepatosplenomegaly, no masses and bowel sounds normal MS: no gross musculoskeletal defects noted, no edema SKIN: no suspicious lesions or rashes NEURO: Normal strength and tone, mentation intact and speech normal PSYCH: mentation appears normal, affect normal/bright Results for orders placed or performed in visit on 08/12/21 (from the past 24 hour(s)) CBC with platelets differential Narrative The following orders were created for panel order CBC with platelets differential. Procedure Abnormality Status --------- ------ CBC with platelets and d...[[id number]] Final result Please view results for these tests on the individual orders. Comprehensive metabolic panel Result Value Ref Range Sodium 137 133 - 144 mmol/L Potassium 3.5 3.4 - 5.3 mmol/L Chloride 103 94 - 109 mmol/L Carbon Dioxide (CO2) 27 20 - 32 mmol/L Anion Gap 7 3 - 14 mmol/L Urea Nitrogen 11 7 - 30 mg/dL Creatinine 0.62 0.52 - 1.04 mg/dL Calcium 9.6 8.5 - 10.1 mg/dL Glucose 108 (H) 70 - 99 mg/dL Alkaline Phosphatase 65 40 - 150 U/L AST 17 0 - 45 U/L ALT 24 0 - 50 U/L Protein Total 7.9 6.8 - 8.8 g/dL Albumin 3.9 3.4 - 5.0 g/dL Bilirubin Total 0.6 0.2 - 1.3 mg/dL GFR Estimate >90 >60 mL/min/1.73m2 Erythrocyte sedimentation rate auto Result Value Ref Range Erythrocyte Sedimentation Rate 19 0 - 30 mm/hr CRP inflammation Result Value Ref Range CRP Inflammation 12.7 (H) 0.0 - 8.0 mg/L Lipase Result Value Ref Range Lipase 109 73 - 393 U/L CBC with platelets and differential Result Value Ref Range WBC Count 8.9 4.0 - 11.0 10e3/uL RBC Count 4.44 3.80 - 5.20 10e6/uL Hemoglobin 13.4 11.7 - 15.7 g/dL Hematocrit 42.2 35.0 - 47.0 % MCV 95 78 - 100 fL MCH 30.2 26.5 - 33.0 pg MCHC 31.8 31.5 - 36.5 g/dL RDW 12.8 10.0 - 15.0 % Platelet Count 329 150 - 450 10e3/uL % Neutrophils 64 % % Lymphocytes 28 % % Monocytes 6 % % Eosinophils 1 % % Basophils 0 % % Immature Granulocytes 1 % NRBCs per 100 WBC 0 <1 /100 Absolute Neutrophils 5.7 1.6 - 8.3 10e3/uL Absolute Lymphocytes 2.5 0.8 - 5.3 10e3/uL Absolute Monocytes 0.6 0.0 - 1.3 10e3/uL Absolute Eosinophils 0.1 0.0 - 0.7 10e3/uL Absolute Basophils 0.0 0.0 - 0.2 10e3/uL Absolute Immature Granulocytes 0.1 <=0.4 10e3/uL Absolute NRBCs 0.0 10e3/uL Recent Results (from the past 744 hour(s)) CT Abdomen Pelvis w Contrast Narrative CT ABDOMEN PELVIS WITH CONTRAST 08/12/2021 4:04 PM CLINICAL HISTORY: Right lower quadrant abdominal pain, appendicitis suspected (Age >= 14y). TECHNIQUE: CT scan of the abdomen and pelvis was performed following injection of IV contrast. Multiplanar reformats were obtained. Dose reduction techniques were used. CONTRAST: 98mL Isovue-370 COMPARISON: CT abdomen and pelvis 06/18/2018. FINDINGS: LOWER CHEST: Normal. HEPATOBILIARY: Hepatic steatosis. No acute liver or gallbladder abnormality identified. Tiny gallbladder polyps versus small adherent stones again noted, stable. PANCREAS: Normal. SPLEEN: Normal. ADRENAL GLANDS: Normal. KIDNEYS/BLADDER: No stones or hydronephrosis. No acute abnormality. BOWEL: Normal appendix. No bowel obstruction. Question of a mild colitis involving the sigmoid colon. No abscess. PELVIC ORGANS: Normal. ADDITIONAL FINDINGS: Mild vascular calcifications. MUSCULOSKELETAL: Spine degenerative changes. Impression IMPRESSION: 1. Question of a mild sigmoid colitis. No abscess identified. 2. No other acute abnormality. Normal appendix. 3. Fatty liver. 4. Tiny gallbladder polyps versus adherent gallstones. ANÍBAL NUNEZ MD documented in this encounter Miscellaneous Notes Result Encounter Note - Consuelo Swartz PA-C - 08/12/2021 3:00 PM CDT Results discussed directly with patient while patient was present. Any further details documented inthe note. Consuelo Swartz PA-C documented in this encounter Plan of Treatment Scheduled Referrals Name Type Priority Associated Diagnoses Order S chedule Colorectal Surgery Referral Routine: Next RLQ abdominal pain Expected: Referral available opening Hematochezia 08/12/2021 Mucus in stool (Approximate) , Expires: 08/12/2022 documented as of this encounter Procedures Procedure Name Priority Date/Time Associated Comments Diagnosis HELICOBACTER PYLORI Routine 08/13/2021 12:34 RLQ abdomin al pain Results for this ANTIGEN STOOL PM CDT Hematochezia procedure are in Mucus in stool the results section. ENTERIC BACTERIA AND Routine 08/13/2021 12:34 RLQ abdomi nal pain Results for this VIRUS PANEL BY GUNNAR PM CDT Hematochezia procedure are in STOOL Mucus in stool the results section. ROUTINE PARASITOLOGY Routine 08/13/2021 12:34 RLQ abdomi nal pain Results for this EXAM PM CDT Hematochezia procedure are in Mucus in stool the results section. CBC WITH PLATELETS AND STAT 08/12/2021 3:24 PM RLQ abdomina l pain Results for this DIFFERENTIAL CDT procedure are i n the results section. CBC WITH PLATELETS & STAT 08/12/2021 3:24 PM RLQ abdominal pain Results for this DIFFERENTIAL CDT procedure are i n the results section. TSH WITH FREE T4 Add-On 08/12/2021 3:24 PM RLQ abdomina l pain Results for this REFLEX CDT Hematochezia procedure are i n the results section. LIPASE STAT 08/12/2021 3:24 PM RLQ abdominal pain Res ults for this CDT procedure are i n the results section. ERYTHROCYTE STAT 08/12/2021 3:24 PM RLQ abdominal pain Res ults for this SEDIMENTATION RATE CDT procedure are in AUTO the results section. CRP INFLAMMATION STAT 08/12/2021 3:24 PM RLQ abdominal pain Results for this CDT procedure are i n the results section. COMPREHENSIVE STAT 08/12/2021 3:24 PM RLQ abdominal pain Re sults for this METABOLIC PANEL CDT procedure ar e in the results section. documented in this encounter Results Helicobacter pylori Antigen Stool (08/13/2021 12:34 PM CDT) Patholo gist Method Time Signature Helicobacter Negative Negative 08/14/2021 SPECIALTY pylori Antigen 12:23 PM CDT CORE/PROT/EN D Stool O Comment: Negative for Helicobacter pylor i antigen by enzyme immunoassay. A negative result indicates the absence of H. pylor i antigen or that the level of antigen is below the level of detection. Specimen Anatomical Collection Method Collection Time Receive d Time (Source) Location / / Volume Laterality Stool RECTAL CONTENTS / Non-blood 08/13/2021 12:34 2021 Unknown Collection / PM CDT 12:34 PM CDT Unknown Consuelo Swartz PA-C LAB - STOOLS ORDERABLES Performing Organization Address City/State/ZIP Code Phon e Number [facility] CORE/PROT/ENDO [place], [place] [address] Core/Prot/Endo [address] [facility] [address] Building, Room [address]580 Ova and Parasite Exam Routine (08/13/2021 12:34 PM CDT) Analysis Performed At Patho logist Time Signature OVA AND Negative Negative [place] 08/14/2021 [facility] PARASITE EXAM 2:27 PM CDT LABORATORY Comment: A single negative specimen does not rule out parasitic infection. Specimen Anatomical Collection Method Collection Time Receive d Time (Source) Location / / Volume Laterality Stool RECTAL CONTENTS / Non-blood 08/13/2021 12:34 2021 Unknown Collection / PM CDT 12:34 PM CDT Unknown Narrative [facility] - 08/14/2021 2:27 PM C DT Cryptosporidium, Cyclospora and Microspo ridia are not readily detected by this method. Consuelo Ruth Swartz PA-C LAB - MICRO GENERAL ORDERABL ES Performing Organization Address City/State/ZIP Code Phon e Number [facility] [place] [address] [address] [facility], [address] Enteric Bacteria and Virus Panel by GUNNAR Stool (08/13/2021 12:34 PM CDT) [facility] Method Time Signature Campylobacter Not Not 08/13/2021 [facility] group Detected Detected 11:04 PM LABORATORY CDT Salmonella Not Not 08/13/2021 [facility] species Detected Detected 11:04 PM LABORATORY CDT Shigella species Not Not 08/13/2021 [facility] Detected Detected 11:04 PM LABORATORY CDT Vibrio group Not Not 08/13/2021 [facility] Detected Detected 11:04 PM LABORATORY CDT Rotavirus Not Not 08/13/2021 [facility] Detected Detected 11:04 PM LABORATORY CDT Shiga toxin 1 Not Not 08/13/2021 [facility] gene Detected Detected 11:04 PM LABORATORY CDT Shiga toxin 2 Not Not 08/13/2021 [facility] gene Detected Detected 11:04 PM LABORATORY CDT Norovirus I and Not Not 08/13/2021 [facility] II Detected Detected 11:04 PM LABORATORY CDT Yersinia Not Not 08/13/2021 [facility] enterocolitica Detected Detected 11:04 PM LABORATORY CDT Specimen Anatomical Collection Method Collection Time Receive d Time (Source) Location / / Volume Laterality Stool RECTAL CONTENTS / Non-blood 08/13/2021 12:34 2021 Unknown Collection / PM CDT 12:34 PM CDT Unknown Narrative [facility] - 08/13/2021 11:04 PM CDT Testing performed by multiplexed, qualit ative PCR using the [employer] Enteric Pathogens Nucleic Acid Test. Results gabriel uld not be used as the sole basis for diagnosis, treatment or other patient ma nagement decisions. Positive results do not rule out co-infection with other organis ms that are not detected by this test and may not be the sole or definitive cause of p atient illness. Negative results in the setting of clinical illness compatible w ith gastroenteritis may be due to infection by pathogens that are not detected by th is test or non-infectious causes such as ulcerative colitis, irritable bowel synd breanna or Crohn's disease. Note: Shiga toxin producing E. coli (STEC) typically harbo r one or both genes that encode for Shiga toxins 1 and 2. Consuelo Swartz PA-C LAB - MICRO GENERAL ORDERABL ES Performing Organization Address City/State/ZIP Code Phon e Number [facility] [place] [phone] Diag. Lab [address] [facility], [address] CT Abdomen Pelvis w Contrast (08/12/2021 4:04 PM CDT) Anatomical Region Laterality Modality Abdomen/Pelvis, SUBRAD CT BODY, P CT ABDOMEN PELVIS, Computed Tomography RAD CT Specimen (Source) Anatomical Location Collection Method / Collectio n Time Received Time / Laterality Volume Impressions 08/12/2021 4:17 PM CDT IMPRESSION: 1. ??Question of a mild sigmoid colitis. No abscess identified. 2. ??No other acute abnormality. Normal appendix. 3. ??Fatty liver. 4. ??Tiny gallbladder polyps versus adhe rent gallstones. ANÍABL NUNEZ MD Narrative 08/12/2021 4:[address] ABDOMEN PELVIS WITH CONTRAST 08/12/2021 4:04 PM CLINICAL HISTORY: Right lower quadrant a bdominal pain, appendicitis suspected (Age >= 14y). ?? TECHNIQUE: CT scan of the abdomen and pe lvis was performed following injection of IV contrast. Multiplanar re formats were obtained. Dose reduction techniques were used. CONTRAST: ??98mL Isovue-370 COMPARISON: CT abdomen and pelvis 019. FINDINGS: LOWER CHEST: Normal. HEPATOBILIARY: Hepatic steatosis. No acu te liver or gallbladder abnormality identified. Tiny gallbladder polyps versus small adherent stones again noted, stable. PANCREAS: Normal. SPLEEN: Normal. ADRENAL GLANDS: Normal. KIDNEYS/BLADDER: No stones or hydronephr osis. No acute abnormality. BOWEL: Normal appendix. No bowel obstruc tion. Question of a mild colitis involving the sigmoid colon. No abscess. PELVIC ORGANS: Normal. ADDITIONAL FINDINGS: Mild vascular calci fications. MUSCULOSKELETAL: Spine degenerative cui ges. Procedure Note Aníbal Nunez MD - 08/12/2021Forma tting of this note might be different from the original. CT ABDOMEN PELVIS WITH CONTRAST 2 4:04 PM CLINICAL HISTORY: Right lower quadrant a bdominal pain, appendicitis suspected (Age >= 14y). TECHNIQUE: CT scan of the abdomen and pe lvis was performed following injection of IV contrast. Multiplanar re formats were obtained. Dose reduction techniques were used. CONTRAST: 98mL Isovue-370 COMPARISON: CT abdomen and pelvis 019. FINDINGS: LOWER CHEST: Normal. HEPATOBILIARY: Hepatic steatosis. No acu te liver or gallbladder abnormality identified. Tiny gallbladder polyps versus small adherent stones again noted, stable. PANCREAS: Normal. SPLEEN: Normal. ADRENAL GLANDS: Normal. KIDNEYS/BLADDER: No stones or hydronephr osis. No acute abnormality. BOWEL: Normal appendix. No bowel obstruc tion. Question of a mild colitis involving the sigmoid colon. No abscess. PELVIC ORGANS: Normal. ADDITIONAL FINDINGS: Mild vascular calci fications. MUSCULOSKELETAL: Spine degenerative cui ges. IMPRESSION: 1. Question of a mild sigmoid colitis. N o abscess identified. 2. No other acute abnormality. Normal ap pendix. 3. Fatty liver. 4. Tiny gallbladder polyps versus adhere nt gallstones. ANÍBAL NUNEZ MD Consuelo Swartz PA-C IMG CT ORDERABLES TSH with free T4 reflex (08/12/2021 3:24 PM CDT) athologist Signature TSH 1.46 0.40 - 4.00 08/12/2021 LABORATORY mU/L 5:57 PM CDT Specimen Anatomical Collection Method / Collection Time Recei lise Time (Source) Location / Volume Laterality Blood VENOUS LINE / Venipuncture / 08/12/2021 3:24 2 3:43 Unknown Unknown PM CDT PM CDT Consuelo Swartz PA-C LAB - BLOOD ORDERABLES Performing Organization Address City/State/ZIP Code [place] [phone] Care [facility] [address] Lab (1st floor, no room number) CBC with platelets and differential (08/12/2021 3:24 PM CDT) Analysis [facility]formed At [facility] Time Signature WBC Count 8.9 4.0 - 11.0 08/12/2021 [facility] LABORATORY 10e3/uL 3:48 PM CDT RBC Count 4.44 3.80 - 08/12/2021 [facility] LABORATORY 5.20 3:48 PM CDT 10e6/uL Hemoglobin 13.4 11.7 - 08/12/2021 [facility] LABORATORY 15.7 g/dL 3:48 PM CDT Hematocrit 42.2 35.0 - 08/12/2021 [facility] LABORATORY 47.0 % 3:48 PM CDT MCV 95 78 - 100 08/12/2021 [facility] LABORAT[facility] fL 3:48 PM CDT MCH 30.2 26.5 - 08/12/2021 [facility]AT[facility] 33.0 pg 3:48 PM CDT MCHC 31.8 31.5 - 08/12/2021 [facility] LAB[facility]AT[facility] 36.5 g/dL 3:48 PM CDT RDW 12.8 10.0 - 08/12/2021 [facility] LABORAT[facility] 15.0 % 3:48 PM CDT Platelet Count 329 150 - 450 08/12/2021 [facility] LABORATORY 10e3/uL 3:48 PM CDT % Neutrophils 64 % 08/12/2021 [facility] 3:48 PM CDT % Lymphocytes 28 % 08/12/2021 [facility]AT[facility] 3:48 PM CDT % Monocytes 6 % 08/12/2021 [facility] 3:48 PM CDT % Eosinophils 1 % 08/12/2021 [facility] LAB[facility] 3:48 PM CDT % Basophils 0 % 08/12/2021 [facility] LABORATORY 3:48 PM CDT % Immature 1 % 08/12/2021 [facility] LABORATORY Granulocytes 3:48 PM CDT NRBCs per 100 WBC 0 <1 /100 08/12/2021 [facility] LABORATO RY 3:48 PM CDT Absolute 5.7 1.6 - 8.3 08/12/2021 [facility] LABORATORY Neutrophils 10e3/uL 3:48 PM CDT Absolute 2.5 0.8 - 5.3 08/12/2021 [facility] LABORATORY Lymphocytes 10e3/uL 3:48 PM CDT Absolute 0.6 0.0 - 1.3 08/12/2021 [facility] LABORATORY Monocytes 10e3/uL 3:48 PM CDT Absolute 0.1 0.0 - 0.7 08/12/2021 [facility] LABORATORY Eosinophils 10e3/uL 3:48 PM CDT Absolute 0.0 0.0 - 0.2 08/12/2021 [facility] LABORATORY Basophils 10e3/uL 3:48 PM CDT Absolute Immature 0.1 <=0.4 08/12/2021 [facility] LABORATO RY Granulocytes 10e3/uL 3:48 PM CDT Absolute NRBCs 0.0 10e3/uL 08/12/2021 [facility] LABORATORY 3:48 PM CDT Specimen Anatomical Collection Method / Collection Time Recei lise Time (Source) Location / Volume Laterality Blood VENOUS LINE / Venipuncture / 08/12/2021 3:24 2 3:43 Unknown Unknown PM CDT PM CDT Consuelo Swartz PA-C LAB - BLOOD ORDERABLES Performing Organization Address City/State/[place] [phone] Care Lab [address] Lab (1st floor, no room number) Lipase (08/12/2021 3:24 PM CDT) P athologist Signature Lipase 109 73 - 393 U/L 08/12/2021 [facility] LABORATORY 4:09 PM CDT Specimen Anatomical Collection Method / Collection Time Recei lise Time (Source) Location / Volume Laterality Blood VENOUS LINE / Venipuncture / 08/12/2021 3:24 2 3:43 Unknown Unknown PM CDT PM CDT Consuelo Swartz PA-C LAB - BLOOD ORDERABLES Performing Organization Address City/State/ZIP Code [place] [address] Care Lab [address] Lab (1st floor, no room number) (ABNORMAL) CRP inflammation (08/12/2021 3:24 PM CDT) Patholo gist Method Time Signature CRP Inflammation 12.7 (H) 0.0 - 8.0 08/12/2021 [facility] LABORATOR Y mg/L 4:09 PM CDT Specimen Anatomical Collection Method / Collection Time Recei lise Time (Source) Location / Volume Laterality Blood VENOUS LINE / Venipuncture / 08/12/2021 3:24 2 3:43 Unknown Unknown PM CDT PM CDT Consuelo Swartz PA-C LAB - BLOOD ORDERABLES Performing Organization Address City/State/ZIP Code [place] [address] Care Lab [address] Lab (1st floor, no room number) Erythrocyte sedimentation rate auto (08/12/2021 3:24 PM CDT) [facility] Method Time Signature Erythrocyte 19 0 - 30 08/12/2021 LABORATORY Sedimentation Rate mm/hr 3:53 PM CDT Specimen Anatomical Collection Method / Collection Time Recei lise Time (Source) Location / Volume Laterality Blood VENOUS LINE / Venipuncture / 08/12/2021 3:24 2 3:43 Unknown Unknown PM CDT PM CDT Consuelo Swartz PA-C LAB - BLOOD ORDERABLES Performing Organization Address City/[facility]/ZIP Code [place] [address] Care Lab [address] Lab (1st floor, no room number) (ABNORMAL) Comprehensive metabolic panel (08/12/2021 3:24 PM CDT) [facility] Method Time Signature Sodium 137 133 - 144 08/12/2021 LABORATORY mmol/L 4:09 PM CDT Potassium 3.5 3.4 - 5.3 08/12/2021 LABORATORY mmol/L 4:09 PM CDT Chloride 103 94 - 109 08/12/2021 LABORATORY mmol/L 4:09 PM CDT Carbon Dioxide 27 20 - 32 08/12/2021 LABORATORY (CO2) mmol/L 4:09 PM CDT Anion Gap 7 3 - 14 08/12/2021 LABORATORY mmol/L 4:09 PM CDT Urea Nitrogen 11 7 - 30 08/12/2021 LABORATORY mg/dL 4:09 PM CDT Creatinine 0.62 0.52 - 08/12/2021 [facility] LABORATORY 1.04 mg/dL 4:09 PM CDT Calcium 9.6 8.5 - 10.1 08/12/2021 LABORATORY mg/dL 4:09 PM CDT Glucose 108 (H) 70 - 99 08/12/2021 LABORATORY mg/dL 4:09 PM CDT Alkaline 65 40 - 150 08/12/2021 LABORATORY Phosphatase U/L 4:09 PM CDT AST 17 0 - 45 U/L 08/12/2021 [facility] 4:09 PM CDT ALT 24 0 - 50 U/L 08/12/2021 [facility] 4:09 PM CDT Protein Total 7.9 6.8 - 8.8 08/12/2021 LABORATORY g/dL 4:09 PM CDT Albumin 3.9 3.4 - 5.0 08/12/2021 [facility] g/dL 4:09 PM CDT Bilirubin Total 0.6 0.2 - 1.3 08/12/2021 LABORATORY mg/dL 4:09 PM CDT GFR Estimate >90 >60 08/12/2021 LABORATORY mL/min/1.7 4:09 PM CDT 3m2 Comment: Effective April 16, 2021 eGF Rcr in adults is calculated using the 2020 CKD-EPI creatinine equation which includ es age and gender (Yamil et al., NEJM, DOI: 10.1056/EDHNkq9492395) Specimen Anatomical Collection Method / Collection Time Recei lise Time (Source) Location / Volume Laterality Blood VENOUS LINE / Venipuncture / 08/12/2021 3:24 2 3:43 Unknown Unknown PM CDT PM CDT Consuelo Swartz PA-C LAB - BLOOD ORDERABLES Performing Organization Address City/State/ZIP Code [place] [address] Care Lab [address] Lab (1st floor, no room number) Urine Culture Aerobic Bacterial - lab collect (08/12/2021 12:07 PM CDT) athologist Signature Culture No Growth MAMADOU 08/14/2021 [facility] IDD 1:22 PM CDT LABORATORY Specimen Anatomical Collection Method Collection Time Receive d Time (Source) Location / / Volume Laterality Urine MID-STREAM URINE Non-blood 08/12/2021 12:07 04 022 SPECIMEN / Unknown Collection / PM CDT 12:21 PM CDT Unknown Consuelo Swartz PA-C LAB - MICRO GENERAL ORDERABL ES Performing Organization Address City/State/ZIP Code Phon e Number [facility] IDD LABORATORY [facility] [place] [address] Diag[address] Lab [address] [facility], Room [address]297 documented in this encounter Visit Diagnoses Diagnosis Hematochezia - Primary Blood in stool RLQ abdominal pain Abdominal pain, right lower quadrant Mucus in stool Nonspecific abnormal finding in stool co ntents RLQ abdominal pain Abdominal pain, right lower quadrant documented in this encounter Administered Medications Inactive Administered Medications - up to 3 most recent administrations Medication Order MAR Action Action Date Dose Rate Site sodium chloride (PF) 0.9% PF flush Given 08/12/2021 3:33 PM CDT 3 mLs 3 mL 3 mL, Intravenous, EVERY 1 MIN PRN, line flush, Starting on 08/12/21 at 1523, For 12 hours documented in this encounter Additional Health Concerns Assessment Noted Time PHQ-9 Depression Total Score: 7 08/12/2021 11:54 AM CD T documented as of this encounter Care Teams Cooking Chef Relationship Specialty Start Date End Date Francia Nair MD PCP - General Internal Medicine 01/28/13 [address] [place] [address] Francia Nair MD Assigned PCP 01/07/[address] [place] [address] Julieth Montes Assigned Surgical 03/17/21 LEANA Felton Provider [address] [facility] [place] [address] Alber Mendez MD Assigned Heart and 08/11/21 [address] Vascular Provider [place] [id number] documented as of this encounter
--- OUTSIDE RECORDS SUMMARY | 2022-01-30 11:34 | XMS_ITS | Encounter Summary ---
:1960 Author Organization [place] Address [address] [place] [address] Care Team Providers Name Role Phone Francia Nair MD Primary Care Provider Francia Nair MD Unavailable Julieth Montes OD Unavailable [phone] Ip, Alber Vuong MD Unavailable Encounter Details Date Type Department Care Team Description 08/12/2021 Travel Social History Tobacco Use Types Packs/Day [...] 08/12/2021 relatives? How often do you attend roman catholic or pentecostal Never 08/12/2021 services? Do you belong to any clubs or organizations such as Yes 08/12/2021 roman catholic groups, unions, fraternal or athletic groups, or [...] documented as of this encounter Care Teams Firepot Operator And Tender Relationship Specialty Start Date End Date Francia Nair MD PCP - General Internal Medicine 01/28/[address] [place], [place] [phone] Francia Nair MD Assigned PCP 01/07/[address] [place], [place] [id number] Julieth Montes Assigned Surgical 03/17/21 LEANA Felton Provider [address] [place] [address] [place] [id number] Alber Mendez MD Assigned Heart and 08/11/21 [address] Vascular Provider [place] [id number] documented as of this encounter
--- OUTSIDE RECORDS SUMMARY | 2022-01-30 11:34 | XMS_ITS | Encounter Summary ---
:1960 Author Organization [place] Address [address] [place] [address] Care Team Providers Name Role Phone Francia Nair MD Primary Care Provider Francia Nair MD Unavailable Julieth Montes OD Unavailable [phone] Ip, Alber Vuong MD Unavailable Reason for Referral Diagnostic Imaging CT Scan (Routine) - Closed Specialty Diagnoses / Procedures Referred By Contact Refer red To Contact Diagnoses RLQ abdominal pain Consuelo Swartz PA-C Procedures CT Abdomen Pelvis w Contrast [address] [place] [address] Referral ID Status Reason Start Date Expiration Date Visits Requ ested Visits Authorized [id number] Closed 08/12/2021 08/12/2022 1 1 Reason for Visit Diagnostic Imaging CT Scan (Routine) - Closed Specialty Diagnoses / Procedures Referred By Contact Refer red To Contact Diagnoses RLQ abdominal pain Consuelo Swartz PA-C Procedures CT Abdomen Pelvis w Contrast [address] [place] [address] Referral ID Status Reason Start Date Expiration Date Visits Requ ested Visits Authorized [id number] Closed 08/12/2021 08/12/2022 1 1 Encounter Details Date Type Department Care Team Description 08/12/2021 Hospital Encounter [facility] Consuelo RLQ abdominal pain [facility] KEREN Miranda [address] [facility] [address] [facility] [address] [place], [place] [phone] Social History Tobacco Use Types Packs/Day Years Used Date Former Smoker Cigarettes 1 12/26/1977 - 0 05/10/2018 Smokeless Tobacco: Never Used Comments: 06/28 PPD- Alcohol Use Standard Drinks/Week Comments Yes [...] 08/12/2021 relatives? How often do you attend yazdanism or restorationist Never 08/12/2021 services? Do you belong to any clubs or organizations such as Yes 08/12/2021 yazdanism groups, unions, fraternal or athletic groups, or [...] place to sleep or slept in a [place] [facility] (including now)? Sex Assigned at Date Recorded Female 10/16/2020 6:22 PM CDT COVID-19 Exposure Response Date Recorded In the last 10 days, have you been in contact with No / Unsu re 08/12/2021 11:03 AM CDT someone who was confirmed or suspected to have Coronavirus/COVID-19? documented as of this encounter Medications at Time of Discharge Medication Sig Dispensed Refills Start Date End Date acetaminophen (TYLENOL) Take 500-1,000 mg by 0 500 MG tablet mouth every 6 hours as needed for mild pain albuterol (PROAIR Inhale 2 puffs into 18 g 11 1 HFA/PROVENTIL the lungs every 6 HFA/VENTOLIN HFA) 108 hours as needed for (90 Base) MCG/ACT shortness of breath inhalerIndications: / dyspnea or Acute bronchospasm wheezing lisinopril-hydrochloroth Take 1 tablet by 90 tablet 3 03/14 iazide (ZESTORETIC) mouth daily 10-12.5 MG tabletIndications: Benign essential hypertension FLUoxetine (PROZAC) 10 2 capsules (20 mg) 50 capsule 0 08/1208/29/2021 MG capsuleIndications: 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 Any further details documented inthe note. Consuelo Swartz PA-C documented in this encounter Plan of Treatment Not on filedocumented as of this encounter Procedures Procedure Name Priority Date/Time Associated Diagnosis Comme nts CT ABDOMEN PELVIS W STAT 08/12/2021 4:04 PM RLQ abdominal p ain Results for this CONTRAST CDT procedure are i n the results section. documented in this encounter Results CT Abdomen Pelvis w Contrast (08/12/2021 4:04 PM CDT) Anatomical Region Laterality Modality Abdomen/Pelvis, SUBRAD CT BODY, UMP CT ABDOMEN PELVIS, Computed Tomography RAD CT Specimen (Source) Anatomical Location Collection Method / Collectio n Time Received Time / Laterality Volume Impressions 08/12/2021 4:17 PM CDT IMPRESSION: 1. ??Question of a mild sigmoid colitis. No abscess identified. 2. ??No other acute abnormality. Normal appendix. 3. ??Fatty liver. 4. ??Tiny gallbladder polyps versus adhe rent gallstones. ANÍBAL CONCEPCION MD Narrative 08/12/2021 4:[address] [...] Spine degenerative cui ges. Procedure Note Aníbal Concepcion MD - 08/12/2021Forma tting of this note might be different from the original. CT ABDOMEN PELVIS WITH CONTRAST 4:04 PM CLINICAL HISTORY: Right lower quadrant [...] gallbladder polyps versus adhere nt gallstones. ANÍBAL CONCEPCION MD Consuelo Swartz PA-C IMG CT ORDERABLES documented in this encounter Visit Diagnoses Diagnosis RLQ abdominal pain Abdominal pain, right lower quadrant documented in this encounter Administered Medications Inactive Administered Medications - up to 3 most recent administrations Medication Order MAR Action Action Date Dose Rate Site iopamidol (ISOVUE-370) solution Given 08/12/2021 3:57 PM CDT 98 mLs 500 mL 500 mL, Intravenous, ONCE, On Thu08/12/21 at 1600, For [address] scan flush Given 08/12/2021 3:57 PM CDT 64 mLs Intravenous, 100 mL, ONCE, On Thu08/12/21 at 1600, For 1 dose documented in this encounter Additional Health Concerns Assessment Noted Time PHQ-9 Depression Total Score: 7 08/12/2021 11:54 AM CD T documented as of this encounter Care Teams Rn Staffing Relationship Specialty Start Date End Date Francia Nair MD PCP - General Internal Medicine 01/28/13 [address] [place], [place] [phone] Francia Nair MD Assigned PCP 01/07/13 [address] [place] [id number] Julieth Montes Assigned Surgical 03/17/21 LEANA Felton Provider [address] [facility] [place] [phone] Alber Mendez MD Assigned Heart and 08/11/21 [address] Vascular Provider [place] [id number] documented as of this encounter
--- OUTSIDE RECORDS SUMMARY | 2022-01-30 11:34 | XMS_ITS | Encounter Summary ---
:1960 Author Organization [place] Address [address] [place] [address] Care Team Providers Name Role Phone Francia Nair MD Primary Care Provider Francia Nair MD Unavailable Julieth Montes OD Unavailable [phone] Reason for Visit Reason Comments Medication Refill Encounter Details Date Type Department Care Team Description 08/02/2021 Refill [facility] Kin Nair MD Medication Refill [place] [address] [facility] [address] [place] [address] [facility] [place] [address] [phone] Social History Tobacco Use Types Packs/Day Years [...] How often do you attend jew or sabianism Never 08/12/2021 services? Do you belong to [...] this encounter Miscellaneous Notes Telephone Encounter - Sussy Finley RN - 08/05/2021 1:24 PM CDT Per mychart response from patient: I am still at 10 mg due to some side effects. I plan to go up to 20mg daily this week and see how Sedrick. Pls refill 10 mg if possible. Please advise, thanks. Telephone Encounter - Drea Collier RN - 08/05/2021 1:00 PM CDT Myc message sent to patient. Telephone Encounter - Francia aNir MD - 08/03/2021 3:37 PM CDT Confirm she is taking 40 mg and doing well, then can change to the 40 mg capsule Telephone Encounter - Drea Collier RN - 08/02/2021 4:23 PM CDT Routing refill request to provider for review/approval because: Phq 9 needs update PHQ 09/13/2019 03/05/2020 10/18/2020 PHQ-9 Total Score 10 7 5 Q9: Thoughts of better off /self-harm past 2 weeks Not at all Not at all Not at all documented in this encounter Plan of Treatment Not on filedocumented as of this encounter Visit Diagnoses Diagnosis Mild episode of recurrent major depressi ve disorder (H) documented in this encounter Additional Health Concerns Assessment Noted Time PHQ-9 Depression Total Score: 5 10/18/2020 8:15 AM CDT documented as of this encounter Care Teams Quality Review Trainer Relationship Specialty Start Date End Date Francia Nair MD PCP - General Internal Medicine 01/28/13 [address] [place] [phone] Francia Nair MD Assigned PCP 01/07/13 [address] [place] [phone] Julieth Montes Assigned Surgical 03/17/21 LEANA Felton Provider [address] [place] [address] [place] [phone] documented as of this encounter
--- OUTSIDE RECORDS SUMMARY | 2022-01-30 11:34 | XMS_ITS | Encounter Summary ---
:1960 Author Organization [facility] Address [address] [place] [address] Care Team Providers Name Role Phone Francia Nair MD Primary Care Provider Francia Nair MD Unavailable Julieht Montes OD Unavailable [phone] Ip, Alber Vuong MD Unavailable Reason for Referral Consultation (Routine: Next available opening) - Closed Specialty Diagnoses / Procedures Referred By Contact Refer red To Contact Diagnoses RLQ abdominal pain Carina Kent PA-C [facility] [address] [facility] [address] [place] [address] [address] [place] [address] Phone: Fax: Referral ID Status Reason Start Date Expiration Date Visits Requ ested Visits Authorized [id number] Closed 08/12/2021 08/12/2022 1 1 Reason for Visit Reason Comments Diarrhea Encounter Details Date Type Department Care Team Description 08/12/2021 Office Visit [facility] Carina Kent, RLQ abdominal pain (Primary Dx); Clinic [place] PA-C Mild episode of recurrent major depressi ve disorder (H) [address] [place], [place] [address] [phone] Social History Tobacco Use Types Packs/Day Years [...] 08/12/2021 relatives? How often do you attend catholic or buddhist Never 08/12/2021 services? Do you belong to any clubs or organizations such as Yes 08/12/2021 catholic groups, unions, fraternal or athletic groups, [...] place to sleep or slept in a half-way (including now)? Sex Assigned at Date Recorded Female 10/16/2020 6:22 PM CDT COVID-19 Exposure Response Date Recorded In the last 10 days, have you been in contact with No / Unsu re 08/12/2021 11:03 AM CDT someone who was confirmed or suspected to have Coronavirus/COVID-19? documented as of this encounter Last Filed Vital Signs Vital Sign Reading Time Taken Comments Blood Pressure 137/78 08/12/2021 11:24 AM CDT Pulse 86 08/12/2021 11:20 AM CDT Temperature 37.3 ??C (99.2 ??F) 08/12/2021 11:20 AM CDT Respiratory Rate 16 08/12/2021 11:20 AM CDT Oxygen Saturation 98% 08/12/2021 11:20 AM CDT Inhaled Oxygen Concentration - - Weight 88.2 kg (194 lb 8 oz) 08/12/2021 11:20 AM CDT Height 163.8 cm (5' 4.5) 08/12/2021 11:20 AM CDT Body Mass Index 32.87 08/12/2021 11:20 AM CDT documented in this encounter Progress Notes Carina Kent PA-C - 08/12/2021 11:30 AM CDT Assessment & Plan RLQ abdominal pain Based on location of pain, patient will be referred to [facility] for probable labs and imaging. Appendicitis is on the differential. Had a colonoscopy in March of 2021; no diverticulosis or hemorrhoids seen. Stool testing may also be indicated, as symptoms could be due to colitis. - UA macro with reflex to Microscopic and Culture - Clinc Collect - Referral to Acute and Diagnostic Services (Day of diagnostic / First order acute); Future - Urine Microscopic Mild episode of recurrent major depressive disorder (H) - FLUoxetine (PROZAC) 10 MG capsule; 2 capsules (20 mg) Ordering of each unique test 30 minutes spent on the date of the encounter doing chart review, history and exam, documentation and further activities per the note No follow-ups on file. Carina Kent PA-C [facility] ROYAL Avalos is a 61 year old who presents for the following health issues accompanied by her spouse. HPI Abdominal pain and bloody diarrhea starting Thursday morning. No recent travel. Diarrhea Onset/Duration: Yesterday Description: Consistency of stool: loose and mucousy Blood in stool: YES Progression of Symptoms: same Accompanying signs and symptoms: Fever: YES Nausea/Vomiting: no Abdominal pain: YES History Ill contacts: no Recent use of antibiotics: no Recent travels: no Recent medication-new or changes(Rx or OTC): no Precipitating or alleviating factors: None Therapies tried and outcome: None Started with abdominal pain late Sat night. Panic, pale, felt like she was going to pass out. Said the pain felt like the most awful menstrual cramps When stooling first started, she had an episode of fecal incontinence. This was not a loose stool. Hard stool first, then diarrhea Cramping and fatigue all day yesterday Started noticing mucus and blood in stools yesterday. Loose and bloody stools (6 yesterday) Didn't eat much yesterday (banana and toast) Today--black stool, stringy Pain across lower abdomen No sick contacts GERD under good control Not taking meds for it Dietary management PSH: , hysterectomy Still has appendix Review of Systems Constitutional, HEENT, cardiovascular, pulmonary, gi and gu systems are negative, except as otherwise noted. Objective BP 137/78 Pulse 86 Temp 99.2 ??F (37.3 ??C) (Oral) Resp 16 Ht 1.638 m (5' 4.5) Wt 88.2 kg(194 lb 8 oz) SpO2 98% No BMI 32.87 kg/m?? Body mass index is 32.87 kg/m??. Physical Exam GENERAL: healthy, alert and no distress RESP: lungs clear to auscultation - no rales, rhonchi or wheezes CV: regular rate and rhythm, normal S1 S2, no S3 or S4, no murmur, click or rub, no peripheral edemaand peripheral pulses strong ABDOMEN: tenderness RLQ and bowel sounds normal MS: no gross musculoskeletal defects noted, no edema SKIN: no suspicious lesions or rashes PSYCH: mentation appears normal, affect normal/bright Component Latest Ref Rng & Units 08/12/2021 Color Urine Colorless, Straw, Light Yellow, Yellow Yellow Appearance Urine Clear Clear Glucose Urine Negative mg/dL Negative Bilirubin Urine Negative Negative Ketones Urine Negative mg/dL Negative Specific Harrison Urine 1.003 - 1.035 1.015 Blood Urine Negative Trace (A) pH Urine 5.0 - 7.0 5.0 Protein Albumin Urine Negative mg/dL Negative Urobilinogen Urine 0.2, 1.0 E.U./dL 0.2 Nitrite Urine Negative Negative Leukocyte Esterase Urine Negative Negative Bacteria Urine None Seen /HPF Moderate (A) RBC Urine 0-2 /HPF /HPF 0-2 WBC Urine 0-5 /HPF /HPF 0-5 Referral to Acute and Diagnostic Services [facility]ostics [facility] has been contacted at [phone] ([place]) to confirm patient acceptance. The transition to Acute & Diagnostic Services Clinic has been discussed with patient, and she agrees with next level of care. Patient understands that evaluation/treatment at [facility] typically takes significantly longer than in clinic/urgent care (>2 hours). Special issues: None Referral placed: Yes Patient has transportation arranged and will travel to the [facility] without delay: Yes Patient aware not to eat or drink. Yes The following provider has assessed this patient for intervention at [facility], and directed the patient for referral: KEREN Manriquez PA-C documented in this encounter Plan of Treatment Scheduled Referrals Name Type Priority Associated Diagnoses Order S chedule Referral to Acute Referral Routine: Next RLQ abdominal pain Exp ected: and Diagnostic available opening 08/13/19 22 Services (Day of (Approximat e), diagnostic / First Expires: order acute) 08/12/2022 documented as of this encounter Procedures Procedure Name Priority Date/Time Associated Comments Diagnosis URINE MICROSCOPIC Routine 08/12/2021 12:07 RLQ abdominal pain Results for this PM CDT procedure are i n the results section. UA MACROSCOPIC WITH Routine 08/12/2021 12:07 RLQ abdominal meño n Results for this REFLEX TO MICRO AND PM CDT procedur e are in CULTURE the results section. URINE CULTURE Add-On 08/12/2021 12:07 RLQ abdominal pain Resu lts for this PM CDT procedure are i n the results section. documented in this encounter Results Urine Culture Aerobic Bacterial - lab collect (08/12/2021 12:07 PM CDT) P athologist Signature Culture No Growth MAMADOU 08/14/2021 [facility] IDD 1:22 PM CDT LABORATORY Specimen Anatomical Collection Method Collection Time Receive d Time (Source) Location / / Volume Laterality Urine MID-STREAM URINE Non-blood 08/12/2021 12:07 022 SPECIMEN / Unknown Collection / PM CDT 12:21 PM CDT Unknown Consuelo Swartz PA-C LAB - MICRO GENERAL ORDERABL ES Performing Organization Address City/State/ZIP Code Phon e Number [facility] ID[facility] LABORATORY [facility] [place] [address] Diag. Lab [address] [facility], Room [address]297 (ABNORMAL) Urine Microscopic (08/12/2021 12:07 PM CDT) Patholo gist Method Time Signature Bacteria Moderate (A) None Seen MAMADOU 08/12/2021 [facility] Urine /HPF 12:41 PM CDT RBC Urine 0-2 0-2 /HPF MAMADOU 08/12/2021 [facility] /HPF 12:41 PM CDT WBC Urine 0-5 0-5 /HPF MAMADOU 08/12/2021 [facility] /HPF 12:41 PM CDT Specimen Anatomical Collection Method Collection Time Receive d Time (Source) Location / / Volume Laterality Urine MID-STREAM URINE Non-blood 08/12/2021 12:07 022 SPECIMEN / Unknown Collection / PM CDT 12:21 PM CDT Unknown Narrative [facility] - 08/12/2021 12:41 PM CDT Urine Culture not indicated Carina Kent PA-C LAB - URINE ORDERABLES Performing Organization Address City/State/ZIP Code Phon [place] [address] [facility] [address] [place] [facility], [address] [place] [address], [facility] [address] [place] [facility], [address] (ABNORMAL) UA macro with reflex to Microscopic and Culture - Clinc Collect (08/12/2021 12:07 PM CDT) [facility] gist Method Time Signature Color Urine Yellow Colorless, 08/12/2021 [facility] Straw, Light 12:41 PM Yellow, CDT Yellow Appearance Urine Clear Clear 08/12/2021 RI LABORATOR Y 12:41 PM CDT Glucose Urine Negative Negative 08/12/2021 [facility] mg/dL 12:41 PM CDT Bilirubin Urine Negative Negative 08/12/2021 [facility] 12:41 PM CDT Ketones Urine Negative Negative 08/12/2021 [facility] mg/dL 12:41 PM CDT Specific Harrison 1.015 1.003 - 08/12/2021 [facility] LAB[facility]ATOR Y Urine 1.035 12:41 PM CDT Blood Urine Trace (A) Negative 08/12/2021 [facility] 12:41 PM CDT pH Urine 5.0 5.0 - 7.0 08/12/2021 [facility] 12:41 PM CDT Protein Albumin Negative Negative 08/12/2021 [facility] Urine mg/dL 12:41 PM CDT Urobilinogen 0.2 0.2, 1.0 08/12/2021 [facility] Urine E.U./dL 12:41 PM CDT Nitrite Urine Negative Negative 08/12/2021 [facility] 12:41 PM CDT Leukocyte Negative Negative 08/12/2021 [facility] Esterase Urine 12:41 PM CDT Specimen Anatomical Collection Method Collection Time Receive d Time (Source) Location / / Volume Laterality Urine MID-STREAM URINE Non-blood 08/12/2021 12:07 022 SPECIMEN / Unknown Collection / PM CDT 12:21 PM CDT Unknown Carina Kent PA-C LAB - URINE ORDERABLES Performing Organization Address City/State/ZIP Code Phon [place] [address] [phone] [facility] [address] [place] [facility], [address] [place] [address], [facility] [address] [place] [facility], [address] documented in this encounter Visit Diagnoses Diagnosis RLQ abdominal pain - Primary Abdominal pain, right lower quadrant Mild episode of recurrent major depressi ve disorder (H) documented in this encounter Additional Health Concerns Assessment Noted Time PHQ-9 Depression Total Score: 7 08/12/2021 11:54 AM CD T documented as of this encounter Care Teams Dross Puller Relationship Specialty Start Date End Date Francia Nair MD PCP - General Internal Medicine 01/28/[address] [place] [phone] Francia Nair MD Assigned PCP 01/07/[address] [place] [address] [phone] Julieth Montes Assigned Surgical 03/17/21 LEANA Felton Provider [address] [facility] WERNER AVERY [phone] Alber Mendez MD Assigned Heart and 08/11/21 [address] Vascular Provider WERNER BERNARD [id number] documented as of this encounter
--- OUTSIDE RECORDS SUMMARY | 2022-01-30 11:35 | XMS_ITS | Encounter Summary ---
:1960 Author Organization [facility] Address [address] [place] [address] Care Team Providers Name Role Phone Francia Nair MD Primary Care Provider Francia Nair MD Unavailable Encounter Details Date Type Department Care Team Description 03/14/2021 Travel Social History Tobacco Use Types Packs/Day [...] 08/12/2021 relatives? How often do you attend adventist or oriental orthodox Never 08/12/2021 services? 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 documented as of this encounter Plan of Treatment Not on filedocumented as of this encounter Visit Diagnoses Not on filedocumented in this encounter Additional Health Concerns Assessment Noted Time PHQ-9 Depression Total Score: 5 10/18/2020 8:15 AM CDT documented as of this encounter Care Teams Chief Radiologic Technologist Relationship Specialty Start Date End Date Francia Nair MD PCP - General Internal Medicine 01/28/13 [address] [place] [address] [phone] Francia Nair MD Assigned PCP 01/07/13 [address] [place] [address] [phone] documented as of this encounter
--- OUTSIDE RECORDS SUMMARY | 2022-01-30 11:35 | XMS_ITS | Encounter Summary ---
:1960 Author Organization [facility] Address [address] [place] [address] Care Team Providers Name Role Phone Francia Nair MD Primary Care Provider Francia Nair MD Unavailable Reason for Visit Reason Comments Medication Refill Encounter Details Date Type Department Care Team Description 10/18/2020 Refill [facility] Kin Nair MD Medication Refill [place] [address] [facility] [address] [place] [id number] [facility] [place] [address] [phone] Social History Tobacco Use Types Packs/Day Years Used Date Former Smoker Cigarettes Quit: 05/10/19 Smokeless Tobacco: Never Used Comments: 3/4 PPD- [...] 08/12/2021 relatives? How often do you attend mandaen or anabaptist Never 08/12/2021 services? Do you belong to any clubs or organizations such as Yes 08/12/2021 mandaen groups, unions, fraternal or athletic groups, or [...] been in contact with No / Unsure 10/18/2020 7:43 AM CDT someone who was confirmed or suspected to have Coronavirus / COVID-19? documented as of this encounter Miscellaneous Notes Telephone Encounter - Francia Oakley RN - 10/19/2020 4:11 PM CDT Declined per MD Telephone Encounter - Francia Nair MD - 10/19/2020 3:54 PM CDT Tell the pharmacy I do not want to order a 90-day supply because we are not sure what dose she is going to stay on. I would have ordered a 90-day supply if that is what we wanted to do. Telephone Encounter - Francia Oakley RN - 10/19/2020 11:08 AM CDT Pending Prescriptions: Disp Refills metFORMIN (GLUCOPHAGE-XR) 500 MG 24 hr ta*90 tab*1 Sig: TAKE 1 TABLET(500 MG) BY MOUTH DAILY WITH DINNER Routing refill request to provider for review/approval because: Patient is requesting a 90 day supply documented in this encounter Plan of Treatment Not on filedocumented as of this encounter Visit Diagnoses Diagnosis Prediabetes Other abnormal glucose documented in this encounter Additional Health Concerns Assessment Noted Time PHQ-9 Depression Total Score: 5 10/18/2020 8:15 AM CDT documented as of this encounter Care Teams Molded Goods Operator Relationship Specialty Start Date End Date Francia Nair MD PCP - General Internal Medicine 01/28/13 [address] [place], [place] [address] Francia Nair MD Assigned PCP 01/07/13 [address] [facility] [address] [place] [address] documented as of this encounter
--- OUTSIDE RECORDS SUMMARY | 2022-01-30 11:35 | XMS_ITS | Encounter Summary ---
:1960 Author Organization [facility] Address [address] [place] [address] Care Team Providers Name Role Phone Francia Nair MD Primary Care Provider Francia Nair MD Unavailable Reason for Visit Reason Onset Date Comments Refill Request 10/01/2020 lisinopril-hctz Encounter Details Date Type Department Care Team Description 10/01/2020 Refill [facility] Francia Nair MD Refill Request Clinic [place] [address] (lisinopril-hctz) [address] [place] [address] [place] [address] [place], [place] [phone] (Wo rk) [address] [phone] Social History Tobacco Use Types Packs/Day Years Used Date Former Smoker Cigarettes Quit: 05/10/19 19 Smokeless Tobacco: Never Used Comments: 3/ PPD- [...] 08/12/2021 relatives? How often do you attend temple or amish Never 08/12/2021 services? Do you belong to any clubs or organizations such as Yes 08/12/2021 temple groups, unions, fraternal or athletic groups, [...] place to sleep or slept in a m[facility] (including now)? Sex Assigned at Date Recorded Female 10/16/2020 6:22 PM CDT documented as of this encounter Miscellaneous Notes Telephone Encounter - Francia Oakley RN - 10/04/2020 3:04 PM CDT Next 5 appointments (look out 90 days) Oct 18, 2020 7:40 AM SHORT with Francia Nair MD [facility] ([facility] [place] ) [facility] [phone] Assisted in scheduling. Telephone Encounter - Francia Nair MD - 10/02/2020 4:36 PM CDT Please schedule the patient for a blood pressure follow-up appointment. Then I can do the refill. Telephone Encounter - Lacey Beaulieu RN - 10/02/2020 4:21 PM CDT Routing refill request to provider for review/approval because: BP Readings from Last 3 Encounters: 03/01/20 (!) 140/91 09/13/19 (!) 147/91 04/14/19 122/76 Pt seen in February and was to return for a BP check, at this point should she just schedule an office visit with you instead of a nurse only? 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
--- OUTSIDE RECORDS SUMMARY | 2022-01-30 11:35 | XMS_ITS | Encounter Summary ---
:1960 Author Organization [facility] Address [address] [place] [address]. [place] [address] Care Team Providers Name Role Phone Francia Nair MD Primary Care Provider Francia Nair MD Unavailable Julieth Montes OD Unavailable [phone] Reason for Visit Auth/Cert Specialty Diagnoses / Procedures Referred By Contact Refer red To Contact Gastroenterology Diagnoses Screen for colon cancer Screen for colon cancer [Z12.11] Endoscopy Procedures [facility] COLONOSCOPY W/WO BRUSH/WASH COLONOSCOPY [address] [place] [address] Phone: Fax: Referral ID Status Reason Start Date Expiration Date Visits Requ ested Visits Authorized [id number] 1 1 Encounter Details Date Type Department Care Team Description 04/05/2021 Hospital Encounter [facility] Kenny Dahl , Endoscopy Brian SCHAEFER [address] [place], [place] GASTROINTESTINAL [id number] [place] [address] [place], [place] [id number] (Wo rk) Social History Tobacco Use Types [...] 08/12/2021 relatives? How often do you attend religious or methodist Never 08/12/2021 services? Do you belong to any clubs or organizations such as Yes 08/12/2021 religious groups, unions, fraternal or athletic groups, or [...] place to sleep or slept in a halfway (including now)? Sex Assigned at Date Recorded Female 10/16/2020 6:22 PM CDT COVID-19 Exposure Response Date Recorded In the last month, have you been in contact with No / Unsure 04/05/2021 1:35 PM [employer] someone who was confirmed or suspected to have Coronavirus / COVID-19? documented as of this encounter Last Filed Vital Signs Vital Sign Reading Time Taken Comments Blood Pressure 107/65 04/05/2021 5:25 PM [employer] Pulse 74 04/05/2021 5:25 PM [employer] Temperature 36.7 ??C (98 ??F) 04/05/2021 4:17 PM [employer] Respiratory Rate 17 04/05/2021 4:50 PM [employer] Oxygen Saturation 100% 04/05/2021 5:25 PM [employer] Inhaled Oxygen Concentration - - Weight 84.8 kg (187 lb) 04/05/2021 3:12 PM [employer] Height 163.8 cm (5' 4.5) 04/05/2021 3:12 PM [employer] Body Mass Index 31.6 04/05/2021 3:12 PM [employer] documented in this encounter Discharge Instructions Discharge InstructionsDrea Mensah RN - 04/05/2021 5:05 PM CST SEDATION ADULT DISCHARGE INSTRUCTIONS SPECIAL PRECAUTIONS FOR 24 HOURS AFTER SURGERY IT IS NOT UNUSUAL TO FEEL LIGHT-HEADED OR FAINT, UP TO 24 HOURS AFTER SURGERY OR WHILE TAKING PAIN MEDICATION. IF YOU HAVE THESE SYMPTOMS; SIT FOR A FEW MINUTES BEFORE STANDING AND HAVE SOMEONE ASSIST YOU WHEN YOU GET UP TO WALK OR USE THE BATHROOM. YOU SHOULD REST AND RELAX FOR THE NEXT 24 HOURS AND YOU MUST MAKE ARRANGEMENTS TO HAVE SOMEONE STAY WITH YOU FOR AT LEAST 24 HOURS AFTER YOUR DISCHARGE. AVOID HAZARDOUS AND STRENUOUS ACTIVITIES. DO NOTMAKE IMPORTANT DECISIONS FOR [address] ANY VEHICLE OR OPERATE MECHANICAL EQUIPMENT FOR 24 HOURS FOLLOWING THE END OF YOUR SURGERY. EVEN THOUGH YOU MAY FEEL NORMAL, YOUR REACTIONS MAY BE AFFECTED BY THE MEDICATION YOU HAVE RECEIVED. DO NOT DRINK ALCOHOLIC BEVERAGES FOR 24 HOURS FOLLOWING YOUR SURGERY. DRINK CLEAR LIQUIDS (APPLE JUICE, BETO BREANA, 7-UP, BROTH, ETC.). PROGRESS TO YOUR REGULAR DIET YOU FEEL ABLE. YOU MAY HAVE A DRY MOUTH, A SORE THROAT, MUSCLES ACHES OR TROUBLE SLEEPING. THESE SHOULD GO AWAY AFTER 24 HOURS. CALL YOUR DOCTOR FOR ANY OF THE FOLLOWING: SIGNS OF INFECTION (FEVER, GROWING TENDERNESS AT THE SURGERY SITE, A LARGE AMOUNT OF DRAINAGE OR BLEEDING, SEVERE PAIN, FOUL-SMELLING DRAINAGE, REDNESS OR SWELLING. IT HAS BEEN OVER 8 TO 10 HOURS SINCE SURGERY AND YOU ARE STILL NOT ABLE TO URINATE (PASS WATER). 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) FLUoxetine (PROZAC) 40 TAKE 1 CAPSULE BY 90 capsule 1 202006/04/2021 MG capsuleIndications: MOUTH DAILY Mild episode of recurrent major depressive disorder (H) triamcinolone (KENALOG) Apply topically 2 30 g 3 03/1408/29/2021 0.1 % external times daily creamIndications: Eczema, unspecified type documented as of this encounter H&P Notes Kenny Dahl MD - 04/05/2021 1:49 PM CST Pre-Endoscopy History and Physical Robbie Miller Date of : 1960 Age: [age] year old Date of Procedure: 04/05/2021 Primary care provider: Francia Nair Type of Endoscopy: Colonoscopy with possible biopsy, possible polypectomy Reason for Procedure: polyp Type of Anesthesia Anticipated: Conscious Sedation HPI: Robbie is a 61 year old female who will be undergoing the above procedure. A history and physical has been performed. The patient's medications and allergies have been reviewed. The risks and benefits of the procedure and the sedation options and risks were discussed with thepatient. All questions were answered and informed consent was obtained. She denies a personal or family history of anesthesia complications or bleeding disorders. Patient Active Problem List Diagnosis ??? Tobacco use disorder ??? Benign essential hypertension ??? Obesity ??? ADD (attention deficit disorder) ??? Major depression, recurrent (H) ??? Controlled substance agreement signed. [employer]-ok- 01/27/20 ??? Gastroesophageal reflux disease with esophagitis ??? Blood glucose abnormal ? ? Hyperlipidemia LDL goal <130 ??? Prolonged QT interval ??? Anxiety ??? Bilateral incipient cataracts ??? Corneal epithelial and basement membrane dystrophy Past Medical History: Diagnosis Date ??? ADD (attention deficit disorder) ??? Diabetes (H) Pre-Diabetic ??? Hypertension ??? Major depression ??? QT prolongation Medication induced Past Surgical History: Procedure Laterality Date ??? COLONOSCOPY N/A 11/05/2015 Procedure: COMBINED COLONOSCOPY, SINGLE OR MULTIPLE BIOPSY/POLYPECTOMY BY BIOPSY; Surgeon: Vic Helm MD, ; Location: [facility] ??? HYSTERECTOMY, ALESSANDRO has ovaries ??? ZZC NONSPECIFIC PROCEDURE SBO w/ 3 resected Social History Tobacco Use ??? Smoking status: Former Smoker Packs/day: 1.00 Types: Cigarettes Start date: 12/26/1977 Quit date: 05/10/2018 Years since quittin.9 ??? Smokeless tobacco: Never Used ??? Tobacco comment: 06/28 PPD- Substance Use Topics ??? Alcohol use: Yes Comment: ocassional 3-4 drinks per month Family History Problem Relation Age of Onset ??? Heart Disease Father CHF ??? Breast Cancer Maternal Grandmother ??? Diabetes Maternal Grandmother Type 1 ??? Heart Failure Mother ??? Diabetes Paternal Aunt ??? Colon Cancer No family hx of Prior to Admission medications Medication Sig Start Date End Date Taking? Authorizing Provider acetaminophen (TYLENOL) 500 MG tablet Take 500-1,000 mg by mouth every 6 hours as needed for mild pain Reported, Patient albuterol (PROAIR HFA/PROVENTIL HFA/VENTOLIN HFA) 108 (90 Base) MCG/ACT inhaler Inhale 2 puffs into the lungs every 6 hours as needed for shortness of breath / dyspnea or wheezing 10/18/20 Francia Nair MD FLUoxetine (PROZAC) 10 MG capsule Taper fluoxetine over 30 days as directed 03/14/21 Francia Nair MD FLUoxetine (PROZAC) 40 MG capsule TAKE 1 CAPSULE BY MOUTH DAILY 01/03/21 Francia Nair MD lisinopril-hydrochlorothiazide (ZESTORETIC) 10-12.5 MG tablet Take 1 tablet by mouth daily 03/14/21 Francia Nair MD triamcinolone (KENALOG) 0.1 % external cream Apply topically 2 times daily 03/14/21 Francia Nair MD Allergies Allergen Reactions ??? No Known Drug Allergies ??? Varenicline PN: LW Reaction: nightmare REVIEW OF SYSTEMS: 5 point ROS negative except as noted above in HPI, including Gen., Resp., CV, GI & system review. PHYSICAL EXAM: There were no vitals taken for this visit. Estimated body mass index is 33.17 kg/m?? as calculated from the following: Height as of 03/14/21: 1.638 m (5' 4.5). Weight as of 03/14/21: 89 kg (196 lb 4.8 oz). GENERAL APPEARANCE: alert, and oriented MENTAL STATUS: alert AIRWAY EXAM: Mallampatti Class I (visualization of the soft palate, fauces, uvula, anterior and posterior pillars) RESP: lungs clear to auscultation - no rales, rhonchi or wheezes CV: regular rates and rhythm DIAGNOSTICS: Not indicated IMPRESSION ASA Class 2 - Mild systemic disease PLAN: Plan for Colonoscopy with possible biopsy, possible polypectomy. We discussed the risks, benefits and alternatives and the patient wished to proceed. The above has been forwarded to the consulting provider. Signed Electronically by: Kenny Dahl MD April 05, 2021 [employer] documented in this encounter Miscellaneous Notes Result Encounter Note - Kenny Dahl MD - 04/05/2021 5:46 PM CST Pt informed of result. Redo in 5 yr. [employer] documented in this encounter Plan of Treatment Not on filedocumented as of this encounter Procedures Procedure Name Priority Date/Time Associated Comments Diagnosis SURGICAL PATHOLOGY Routine 04/05/2021 4:44 PM Res ults for this EXAM [employer] procedure are i n the results section. COLONOSCOPY Routine 04/05/2021 4:18 PM Results f or this [employer] procedure are i n the results section. COLONOSCOPY, WITH 04/05/2021 3:55 PM Screen for colon POLYPECTOMY AND [employer] cancer BIOPSY Special Needs P s 03/25 jm Pre-Diabetic No Meds (fv) documented in this encounter Results Surgical Pathology Exam (04/05/2021 4:44 PM [employer]) Component Value Ref Test Analysis Performed At [facility] Method Time Signature Case Report Surgical Pathology Report ? Case: [id number] ? 04/09/2021 LABORATORY Authorizing Provider: ??Kenny Chand MD ?Collected: ? 04/05/2021 04:44 PM ? 9:57 AM [employer] Ordering Location: ? [facility] ?Received: ?04/05/2021 05:30 PM ? Endoscopy [facility] ? Pathologist: ? Ivy Avelar ? Specimen: ?Large Intesti ne, Colon, Transverse, transverse colon polyp X1 ? Final A. Large intestine, transverse colon, polyp, polypectomy: 04/09/2021 LABORATORY Electronically Diagnosis -Tubular adenoma. 9:57 AM [employer] signed by -Negative for high-grade dysplasia or malignancy. Ivy Avelar -Size: 2 mm, completely resected and retrieved (per endoscop y report). on 04/09/2021 at 9:57 AM Clinical Personal 04/09/2021 LABORATORY Information history of 9:57 AM [employer] colonic polyps. Gross A(1). Large Intestine, Colon, Transverse, transverse c olon polyp X1: 04/09/2021 LABORATORY Description The specimen is received in formalin, labeled with the patient's name, medical record number and other identifying information and designated ? transverse colon polyp x1? . It consists of a single luo 9:57 AM [employer] soft tissue fragment measur ing 0.4 cm in greatest dimension. Entirely submitted in one cassette. (ALIZA Wheeler ASCP CM) Microscopic Microscopic examination was performed. 04/09/2021 LABORATORY Description 9:57 AM [employer] Performing The technical 04/09/2021 LABORATORY Labs component of 9:57 AM [employer] this testing was completed at [facility] Case Images 04/09/2021 LABORATORY 9:57 AM [employer] Specimen Anatomical Collection Method Collection Time Receive d Time (Source) Location / / Volume Laterality Polyp TRANSVERSE COLON 04/05/2021 4:44 PM 04/05 5:30 STRUCTURE / [employer] PM [employer] Unknown Kenny HOPPER - SELAM Performing Organization Address City/State/ZIP Code Phon [place] [address] [facility] [address] Lab (1st floor, no room number) COLONOSCOPY (04/05/2021 4:18 PM [employer]) [facility] Method Time Signature COLONOSCOPY [facility] RADIOLOGY RESULTS Patient Name: Robbie Bender Angela ?? Procedure Date: 04/05 4:18 PM ? Accou nt Number: [id number] Date of : 1960 ?Admit Type: Out patient Age: 61 ? Gender: Female Attending MD: Kenny major MD ?? Total Sedation Time: 28_minutes continuous bedside 1:1 Instrument Name: 224 - Adult Colonoscope Procedure: ?Colonoscopy Indications: ?High ri sk colon cancer surveillance: Personal ?history of colonic po lyps Providers: ?Kenny Dahl MD (Doc tor) Referring MD: ? Medicines: ?Midazolam 4 mg IV, Fentanyl 200 micrograms IV Complications: ?No immediate complications. Procedure: ?Pre-Anesthesia Assessment: ?- Prior to the procedure, a History and Physical ?was performed, and patient medications and ?allergies were reviewed. The patient is competent. ?The risks and benefits of the procedure and the ?sedation options and risks were discussed with the ?patient. All questions were answered and informed ?consent was obtained. Patient identification and ?proposed procedure were verified by the physician ?in the procedure room. Mental Status Examination: ?alert and oriented. Airway Examination: normal ?oropharyngeal airway and neck mobility. Respiratory ?Examination: clear to auscultation. CV Examination: ?normal. Prophylactic Antibiotics: The patient does ?not require prophylactic antibiotics. Prior ?Anticoagulants: The patient has taken no ?anticoagulant or antiplatelet agents. ASA Grade ?Assessment: II - A patient with mild systemic ?disease. After reviewing the risks and benefits, ?the patient was deemed in satisfactory condition to ?undergo the procedure. The anesthesia plan was to ?use moderate sedation / analgesia (conscious ?sedation). Immediately prior to administration of ?medications, the patient was re-assessed for ?adequacy to receive sedatives. The heart rate, ?respiratory rate, oxygen saturations, blood ?pressure, adequacy of pulmonary ventilation, and ?response to care were monitored throughout the ?procedure. The physical status of the patient was ?re-assessed after the procedure. ?After obtaining informed consent, the colonoscope ?was passed under direct vision. Throughout the ?procedure, the patient's blood pressure, pulse, and ?oxygen saturations were monitored continuously. The ?Olympus Adult Colonoscope, Model # [id number], ?[place] # 224, SN # [id number] was introduced through ?the anus and advanced to the cecum, identified by ?appendiceal orifice and ileocecal valve. The ?colonoscopy was technically difficult and complex ?due to the patient's excessive discomfort during ?the procedure. Successful completion of the ?procedure was aided by increasing the dose of ?sedation medication. The patient tolerated the ?procedure. The quality of the bowel preparation was ?good. The ileocecal valve, appendiceal orifice, and ?rectum were photograp hed. ? Findings: ? The perianal and digital rectal examinations were nor mal. ? A 2 mm polyp was found in the proximal tr ansverse colon. The polyp was ? hyperplastic. The polyp was removed with a cold biops y forceps. ? Resection and retrieval were complete. Verification o f patient ? identification for the specimen was done. Estimated b lood loss was ? minimal. ? The exam was otherwise without abnormality on d irect and retroflexion ? views. ? Impression: ? - One 2 mm polyp in the proximal transverse colon, ?removed with a cold biopsy forceps. Resected and ?retrieved. ?- The examination was otherwise normal on direct ?and retroflexion view s. Recommendation: ? - Await pathology results. ?- Repeat colonoscopy in 5 years for surveillance. ?Propofol for the next colon. ? Procedure Code(s): ? --- Professional --- ? 80765, Colonoscopy, flexible; with biopsy, single or multiple Diagnosis Code(s): ? --- Professional --- ? K63.5, Polyp of colon CPT copyright 2020 [employer] [employer]. All rights reserved. The codes documented in this report are prelimin dejan and upon plasticator review may be revised to meet current compliance requirements. Electronically signed by Kenny Dahl MD Kenny Dahl MD 04/05/2021 4:53:48 PM I was physically present for the entire viewing portion of t he exam. Kenny Dahl MD Number of Addenda: 0 Note Initiated On: 04/05/2021 4:18 PM MRN: ?[id number] Procedure Date: ? 04/05/2021 4:18:00 PM Scope Withdrawal Time: 0 hours 6 minutes 17 seconds Total Procedure Duration: 0 hours 26 minutes 30 seconds Estimated Blood Loss: ? Scope In: 4:20:18 PM Scope Out: 4:46:48 PM Specimen (Source) Anatomical Collection Method Collection Time Re ceived Time Location / / Volume Laterality 04/05/2021 4:18 PM [employer] Kenny Dahl MD PROCEDURES Performing Organization Address City/State/ZIP Code Phon e Number RADIOLOGY RESULTS documented in this encounter Visit Diagnoses Not on filedocumented in this encounter Administered Medications Inactive Administered Medications - up to 3 most recent administrations Medication Order MAR Action Action Date Dose Rate Site 0.9% sodium chloride BOLUS Intravenous, 500 mL, ONCE PRN, at 500 mL/hr, Administe r over 1 Hours, other, hypotension, Starting on Thu04/05/21 at 1346, For 1 d ose, Intra-procedure atropine injection 0.4 mg 0.4 mg, Intravenous, ONCE PRN, Bradycard ia, Starting on Thu04/05/21 at 1346, For 1 dose, Intra-procedure benzocaine 20% (HURRICAINE/TOPEX) 20 % s pray 0.5-2 mL 0.5-2 mL (1-4 spray), Mouth/Throat, ONCE PRN, moderate pain, Starting on Thu04/05/21 at 1346, For 1 dose, [place] throat with 1-4 sp rays 5 minutes prior to procedure., Intra-procedure EPINEPHrine (Anaphylaxis) (ADRENALIN) in jection (vial) 0.1 mg 0.1 mg, Submucosal, ONCE PRN, bleeding, Starting on Fr i 04/05/21 at 1346, For 1 dose, Via sclerotherapy injection needle. Not for dire ct undiluted intravenous injection (1mg/ml = 1:1000). Protect from light., Intr a-procedure fentaNYL (PF) (SUBLIMAZE) injection 25-5 0 mcg 25-50 mcg, Intravenous, EVERY 2 MIN PRN, moderate to s evere pain, when verbally ordered by the prescriber during the procedure, Admini ster over 1-2 Minutes, Starting on Thu04/05/21 at 1400, For 24 hours, Cautio n: may have synergistic effect when used with midazolam (VERSED) . If inadequate response, may repeat up to maximum of 300 mcg total dose in 60 minutes. Doses can be exceeded under direct oversight of patient by provider., Intra-procedure fentaNYL (PF) (SUBLIMAZE) injection Given 04/05/2021 4:29 PM [employer] 50 mcg Intravenous, PRN, Administer over 3-5 Minutes, Starting on Thu04/05/21 at 1618 Given 04/05/2021 4:27 PM [employer] 50 mcg Given 04/05/2021 4:18 PM [employer] 100 mcg flumazenil (ROMAZICON) injection 0.2 mg 0.2 mg, Intravenous, EVERY 1 MIN PRN, be nzodiazepine reversal, over sedation, when verbally ordered by the prescriber during the procedur e , Administer over 1 Minutes, Starting on 04/05/21 at 134 6, For 48 hours, Give over 15 seconds. If inadequate response after 45 seconds, ma y repeat up to a MAX total dose of 1 mg). Continue monitoring until discharge criteria are met f or a minimum of 2 hours. Irritant. Use with caution in patients o n benzodiazepine therapy., Intra-procedure flumazenil (ROMAZICON) injection 0.2 mg 0.2 mg, Intravenous, EVERY 1 MIN PRN, benzodiazepine r eversal, over sedation, Administer over 1 Minutes, Starting on Thu04/05/21 at 1704, For 12 hours, Give over 15 seconds. If inadequate response after 45 seconds, may repeat up to a MAX total dose of 1 mg. Continue monitoring until discharg e criteria are met for a minimum of 2 hours Irritant. Use with caution in patie nts on benzodiazepine therapy. glucagon injection 0.5 mg 0.5 mg, Intravenous, ONCE PRN, other, gi motility, Sta rting on Thu04/05/21 at 1346, For 1 dose, Intra-procedure lidocaine (LMX4) kit Topical, EVERY 1 HOUR PRN, pain, with VA D insertion, Starting on Thu04/05/21 at 1514, Apply at least 30 minutes prior to VAD insertion in divided doses as needed for size of site for insertion. MAX Dose: 2.5 g (?? of 5 g tube) Do NOT give if patient has a history of allergy to any local anesthetic or any derek product. Do NOT use both lidocaine intradermal/subcu taneous injection and the lidocaine cream on the same site., Pre-procedure lidocaine 1 % 0.1-1 mL 0.1-1 mL, Other, EVERY 1 HOUR PRN, mild pain with VAD insertion, Starting on Thu04/05/21 at 1514, MAX dose 1 mL subcutan eous OR intradermal along the side of the vein in divided doses as needed for VAD insertion. Do NOT give if patient has a history of allergy to any local anesthet ic or any derek product. Do NOT use both lidocaine intradermal/subcutaneous injec tion and the lidocaine cream on the same site., Pre-procedure midazolam (VERSED) injection 1 mg 1 mg, Intravenous, Administer over 1-2 Minutes, EVERY 2 MIN PRN, sedation, when verbally ordered by the prescriber maría mckenzie the procedure, Starting on Thu04/05/21 at 1400, For 24 hours, Caution: when use d with opioids, may need lower doses. If inadequate response, may repeat until de sired sedative response (Maximum of 8 mg total dose). Doses can be exceeded under direct oversight of patient by provider. This drug may cause significant respirat ory depression. Monitor respiratory status and vital signs carefully for 1 hour after each dose., Intra-procedure midazolam (VERSED) injection Given 04/05/2021 4:29 PM [employer] 1 mg Intravenous, Administer over 2 Minutes, PRN, Starting on Thu04/05/21 at 1618 Given 04/05/2021 4:27 PM [employer] 1 mg Given 04/05/2021 4:18 PM [employer] 2 mg naloxone (NARCAN) injection 0.2 mg 0.2 mg, Intravenous, EVERY 2 MIN PRN, op ioid reversal, Starting on Thu04/05/21 at 1704, Administer intravenous route when available and notify provider when administered. For unintended sedation or respiratory depression if all of the below criteria are met: ~ respiratory rate LES S than or EQUAL to 8. ~SaO2 less than 92% and or/end-tidal CO2 is greater than 50. ~ the patient is receiving an opioid, has unintended sedations assessed as RASS (-3), and is cur rently not on mechanical ventilation. RASS scale moderate (-3) is movement or eye opening to voice but no eye contact. Patient Monitoring Once the patient has demonstrated a response to the naloxone, continue to monitor respiratory rate, depth, oxygen saturation and end-tidal CO2 (if available) every 15 mi nutes x 2, then every 30 minutes x 2, then every 1 hour x 1 after each naloxone dose. Consider tr ansfer to ICU if patient respiratory parameters have not improved after 4 nalox one doses. naloxone (NARCAN) injection 0.2 mg 0.2 mg, Intramuscular, EVERY 2 MIN PRN, opioid reversal, Starting on Thu04/05/21 at 1704, Administer intramuscular if an intravenous ro dayron is not available and notify provider when administered. For unintended doe tion or respiratory depression if all of the below criteria are met: ~ respiratory rate LESS than or EQUAL to 8. ~SaO2 less than 92% and or/end-tidal CO2 i s greater than 50. ~ the patient is receiving an opioid, has unin tended sedations assessed as RASS (-3), and is currently not on mechanical ventilati on. RASS scale moderate (-3) is movement or eye opening to voice but no eye contact. Patient Monitoring Once the patient has demonstrated a response to the naloxone, continue to m onitor respiratory rate, depth, oxygen saturation and end-tidal CO2 (if availab le) every 15 minutes x 2, then every 30 minutes x 2, then every 1 hour x 1 after each naloxone dose. Consider transfer to ICU if patient respiratory parameters have not improved after 4 naloxone doses. naloxone (NARCAN) injection 0.4 mg 0.4 mg, Intravenous, EVERY 2 MIN PRN, op ioid reversal, Starting on Thu04/05/21 at 1704, Administer intravenous route when available and notify provider when administered. For unintended sedation or respiratory depression if all of the below criteria are met: ~ respiratory rate LES S than or EQUAL to 8. ~ SaO2 less than 92% and or/end-tidal CO2 is greater than 50. ~ the patient is receiving an opioid, has unintended sedation assessed as RASS (-4 ) or (-5) and patient is currently not on mechanical ventilation. RASS scale (-4) is deep sedation with no response to voice but movement or eye opening to physical stimulation. R ASS scale (-5) is unarousable. Patient Monitoring Once the patient has demonstrated a response to the naloxone, continue to monitor respiratory rate, depth, oxygen saturation and end-tidal CO2 (if available) every 15 mi nutes x 2, then every 30 minutes x 2, then every 1 hour x 1 after each naloxone dose. Consider tr ansfer to ICU if patient respiratory parameters have not improved after 4 nalox one doses. naloxone (NARCAN) injection 0.4 mg 0.4 mg, Intramuscular, EVERY 2 MIN PRN, opioid reversal, Starting on Thu04/05/21 at 1704, Administer intramuscular if an intravenous ro dayron is not available and notify provider when administered. For unintended doe tion or respiratory depression if all of the below criteria are met: ~ respiratory rate LESS than or EQUAL to 8. ~ SaO2 less than 92% and or/end-tidal CO2 is greater than 50. ~ the patient is receiving an opioid, has unin tended sedation assessed as RASS (-4) or (-5) and patient is currently not on mechanical ventil ation. RASS scale (-4) is deep sedation with no response to voice but movement o r eye opening to physical stimulation. RASS scale (-5) is unarousa ble. Patient Monitoring Once the patient has demonstrated a response to the nalox one, continue to monitor respiratory rate, depth, oxygen saturation and end-tidal CO2 (if availab le) every 15 minutes x 2, then every 30 minutes x 2, then every 1 hour x 1 after each naloxone dose. Consider transfer to ICU if patient respiratory parameters have not improved after 4 naloxone doses. ondansetron (ZOFRAN) injection 4 mg 4 mg, Intravenous, ONCE PRN, nausea, vomiting, Adminis ter over 2-5 Minutes, Starting on Thu04/05/21 at 1514, For 1 dose, Give in ENDO pre procedure prep area. Irritant., Pre-procedure ondansetron (ZOFRAN) injection 4 mg 4 mg, Intravenous, EVERY 6 HOURS PRN, nausea, vomiting , Administer over 2-5 Minutes, Starting on Thu04/05/21 at 170 4, This is Step 1 of nausea and vomiting management. If nausea not resolved in 15 minutes, go t o Step 2 prochlorperazine (COMPAZINE). Irritant. ondansetron (ZOFRAN-ODT) ODT tab 4 mg 4 mg, Oral, EVERY 6 HOURS PRN, nausea, v omiting, Starting on Thu04/05/21 at 1704, This is Step 1 of nausea and vomiting management. If n ausea not resolved in 15 minutes, go to Step 2 prochlorperazine (COMPAZINE). Do not push through foil backing. Peel back foil and gently remove. Place on to ngue immediately. Administration with liquid unnecessary W ith dry hands, peel back foil backing and gently remove tablet. Do not push oral d isintegrating tablet through foil backing. Administer immediately on tongue and oral disintegrati ng tablet dissolves in seconds, then swallow with saliva. Liquid not required . prochlorperazine (COMPAZINE) injection 1 0 mg 10 mg, Intravenous, EVERY 6 HOURS PRN, nausea, vomitin g, Administer over 1-2 Minutes, Starting on Thu04/05/21 at 170 4, This is Step 2 of nausea and vomiting management. If nausea not resolved in 15-30 minutes, N otify provider. prochlorperazine (COMPAZINE) tablet 10 m g 10 mg, Oral, EVERY 6 HOURS PRN, nausea, vomiting, Starting on Thu04/05/21 at 1704, This is Step 2 of nausea and vomiting ma nagement. If nausea not resolved in 15-30 minutes, Notify provider. simethicone (MYLICON) suspension 133 mg 133 mg, Oral, ONCE PRN, other, gas bubbl es, Starting on Thu04/05/21 at 1346, For 1 dose, Give via endoscope, Intra-procedure sodium chloride (PF) 0.9% PF flush 3 mL 3 mL, Intracatheter, EVERY 8 HOURS, First dose on Thu04/05/21 at 1530, to lock peripheral IV dormant line, Pre-procedure sodium chloride (PF) 0.9% PF flush 3 mL 3 mL, Intracatheter, EVERY 1 MIN PRN, li ne flush, other, to ensure patency or to lock dormant line, Starting on Thu04/05/21 at 1514, P re-procedure sodium chloride (PF) 0.9% PF flush 3 mL 3 mL, Intravenous, EVERY 1 HOUR PRN, harlan e flush, Starting on Thu04/05/21 at 1346, Indications: for Peripheral IV flush post IV meds, Int ra-procedure sodium chloride (PF) 0.9% PF flush 3 mL 3 mL, Intravenous, EVERY 8 HOURS, First dose on Thu04/05/21 at 1400, And every 1 hour PRN, to lock peripheral IV dormant line, Intra-pr ocedure sodium chloride (PF) 0.9% PF flush Given 04/05/2021 4:27 PM [employer] 3 mLs Intracatheter, PRN, Starting on Thu04/05/21 at 1619 Given 04/05/2021 4:19 PM [employer] 3 mLs sodium chloride 0.9% (bottle) irrigation Given 04/05/2021 4:29 PM [employer] 500 mLs Irrigation, PRN, Starting on Thu04/05/21 at 1629 documented in this encounter Active and Recently Administered Medications Times are shown in [employer]. Scheduled Medication Order 04/03/2021 04/04/2021 04/05/2021 fentaNYL (PF) (SUBLIMAZE) injection 50-100 mcg 1400 (Canceled Entry - Provider: Orders Generic Provider - Comment: Automatically canceled at discontinue of medication order) 50-100 mcg, Intravenous, ONCE WITHIN 24 HRS, Administer over 1-2 Minutes, On Thu04/05/21 at 1400, For 1 dose, Caution: may have synergistic effect when used with midazolam (VERSED). If inadequate respo nse may repeat 25-50 mcg IV slowly Q 2 m inutes PRN pain (Maximum of 300 mcg total dose in 60 minutes.) Doses can be exceeded under direct oversight of patient by provider., Intra-procedure midazolam (VERSED) injection 1-2 mg 1400 (Canceled Entry - Provider: Orders Generic Provider - Comment: Automatically canceled at discontinue of medication order) 1-2 mg, Intravenous, Administer over 1-2 Minutes, ONCE WITHIN 24 HRS, On Thu04/05/21 at 1400, For 1 dose, Caution: when used with opioids, may need lower doses. If inadequate response may repeat 1 mg I V slowly Q 2 minutes PRN sedation until desired response (Maximum of 8 mg total dose.) Doses can be exceeded under direct oversight of patient by provider. This drug may cause significant respiratory de pression. Monitor respiratory status and vital signs carefully for 1 hour after each dose., Intra-procedure sodium chloride (PF) 0.9% PF flush 3 mL 1530 (Canceled Entry - Provider: Orders Generic Provider - Comment: Automatically canceled at discontinue of medication order) 3 mL, Intracatheter, EVERY 8 HOURS, Firs t dose on Thu04/05/21 at 1530, to lock peripheral IV dormant line, Pre-procedure sodium chloride (PF) 0.9% PF flush 3 mL 1400 (Canceled Entry - Provider: Orders Generic Provider - Comment: Automatically canceled at discontinue of medication order) 3 mL, Intravenous, EVERY 8 HOURS, First dose on Thu04/05/21 at 1400, And every 1 hour PRN, to lock peripheral IV dormant line, Intra-procedure PRN Medication Order 04/03/2021 04/04/2021 04/05/2021 0.9% sodium chloride BOLUS Intravenous, 500 mL, ONCE PRN, at 500 mL /hr, Administer over 1 Hours, other, hypotension, Starting on Thu04/05/21 at 1346, For 1 dose, Intra-procedure atropine injection 0.4 mg 0.4 mg, Intravenous, ONCE PRN, Bradycard ia, Starting on Thu04/05/21 at 1346, For 1 dose, Intra-procedure benzocaine 20% (HURRICAINE/TOPEX) 20 % spray 0.5-2 mL 0.5-2 mL (1-4 spray), Mouth/Throat, ONCE PRN, moderate pain, Starting on Thu04/05/21 at 1346, For 1 dose, [place] throat with 1-4 sprays 5 minutes prior to procedure., Intra-procedure EPINEPHrine (Anaphylaxis) (ADRENALIN) injection (vial) 0.1 mg 0.1 mg, Submucosal, ONCE PRN, bleeding, Starting on Thu04/05/21 at 1346, For 1 dose, Via sclerotherapy injection needle. Not for direct undiluted intravenous injection (1mg/ml = 1:1000). Protect from light., Intra-procedure fentaNYL (PF) (SUBLIMAZE) injection 25-50 mcg 25-50 mcg, Intravenous, EVERY 2 MIN PRN, moderate to severe pain, when verbally ordered by the prescriber during the procedure, Administer over 1-2 Minutes, Starting on Thu04/05/21 at 1400, For 24 hour s, Caution: may have synergistic effect when used with midazolam (VERSED) . If inadequate response, may repeat up to maximum of 300 mcg total dose in 60 minutes. Doses can be exceeded under direct oversight of patient by provider., Intra-procedure fentaNYL (PF) (SUBLIMAZE) injection (COMPLETED) 1618 (Given - Provider: Julio Diop RN)1627 (Given - Provider: Julio Diop RN)1629 (Given - Provider: Julio Diop RN) Intravenous, PRN, Administer over 3-5 Minutes, Startin g on Thu04/05/21 at 1618 flumazenil (ROMAZICON) injection 0.2 mg 0.2 mg, Intravenous, EVERY 1 MIN PRN, be nzodiazepine reversal, over sedation, when verbally ordered by the prescriber during the procedure , Administer over 1 Minutes, Starting on Thu04/05/21 at 1346, For 48 hours, Give over 15 seconds. If i nadequate response after 45 seconds, may repeat up to a MAX total dose of 1 mg). Continue monitoring until discharge criteria are met for a minimum of 2 hours. Ir ritant. Use with caution in patients on benzodiazepine therapy., Intra-procedure flumazenil (ROMAZICON) injection 0.2 mg 0.2 mg, Intravenous, EVERY 1 MIN PRN, be nzodiazepine reversal, over sedation, Administer over 1 Minutes, Starting on Thu04/05/21 at 1704, For 12 hours, Give over 15 seconds. If inadequate response afte r 45 seconds, may repeat up to a MAX tot al dose of 1 mg. Continue monitoring until discharge criteria are met for a minimum of 2 hours Irritant. Use with caution in patients on benzodiazepine therapy. glucagon injection 0.5 mg 0.5 mg, Intravenous, ONCE PRN, other, gi motility, Starting on Thu04/05/21 at 1346, For 1 dose, Intra-procedure lidocaine (LMX4) kit Topical, EVERY 1 HOUR PRN, pain, with VA D insertion, Starting on Thu04/05/21 at 1514, Apply at least 30 minutes prior to VAD insertion in divided doses as needed for size of site for insertion. MAX Dos e: 2.5 g (?? of 5 g tube) Do NOT give if patient has a history of allergy to any local anesthetic or any derek product. Do NOT use both lidocaine intradermal/subcutaneous injection and the lidocaine cream on the same site., Pre-procedure lidocaine 1 % 0.1-1 mL 0.1-1 mL, Other, EVERY 1 HOUR PRN, mild pain with VAD insertion, Starting on Thu04/05/21 at 1514, MAX dose 1 mL subcutaneous OR intradermal along the side of the vein in divided doses as needed for VAD insertion. Do NOT give if patient has a history of allergy to any local anesthetic or any derek product. Do NOT use both lidocaine intradermal/subcutaneous injection and the lidocaine cream on the same site., Pre-procedure midazolam (VERSED) injection 1 mg 1 mg, Intravenous, Administer over 1-2 M inutes, EVERY 2 MIN PRN, sedation, when verbally ordered by the prescriber during the procedure, Starting on Thu04/05/21 at 1400, For 24 hours, Caution: when use d with opioids, may need lower doses. If inadequate response, may repeat until desired sedative response (Maximum of 8 mg total dose). Doses can be exceeded under direct oversight of patient by provider . This drug may cause significant respir atory depression. Monitor respiratory status and vital signs carefully for 1 hour after each dose., Intra-procedure midazolam (VERSED) injection (COMPLETED) 1618 (Given - Provider: Julio Diop RN - Comment: vorb)1627 (Given - Provider: Julio Diop RN)1629 (Given - Provider: Julio Diop RN) Intravenous, Administer over 2 Minutes, PRN, Starting on 02/14 at 1618 naloxone (NARCAN) injection 0.2 mg 0.2 mg, Intravenous, EVERY 2 MIN PRN, op ioid reversal, Starting on Thu04/05/21 at 1704, Administer intravenous route when available and notify provider when administered. For unintended sedation or res piratory depression if all of the below criteria are met: ~ respiratory rate LESS than or EQUAL to 8. ~SaO2 less than 92% and or/end-tidal CO2 is greater than 50. ~ the patient is receiving an opioid, h as unintended sedations assessed as RASS (-3), and is currently not on mechanical ventilation. RASS scale moderate (-3) is movement or eye opening to voice but no eye contact. Patient Monitoring Once th e patient has demonstrated a response to the naloxone, continue to monitor respiratory rate, depth, oxygen saturation and end-tidal CO2 (if available) every 15 minutes x 2, then every 30 minutes x 2, th en every 1 hour x 1 after each naloxone dose. Consider transfer to ICU if patient respiratory parameters have not improved after 4 naloxone doses. naloxone (NARCAN) injection 0.2 mg 0.2 mg, Intramuscular, EVERY 2 MIN PRN, opioid reversal, Starting on Thu04/05/21 at 1704, Administer intramuscular if an intravenous route is not available and notify provider when administered. For un intended sedation or respiratory depress ion if all of the below criteria are met: ~ respiratory rate LESS than or EQUAL to 8. ~SaO2 less than 92% and or/end- tidal CO2 is greater than 50. ~ the patient i s receiving an opioid, has unintended se dations assessed as RASS (-3), and is currently not on mechanical ventilation. RASS scale moderate (-3) is movement or eye opening to voice but no eye contact. Pa tient Monitoring Once the patient has de monstrated a response to the naloxone, continue to monitor respiratory rate, depth, oxygen saturation and end-tidal CO2 (if available) every 15 minutes x 2, then every 30 minutes x 2, then every 1 hour x 1 after each naloxone dose. Consider transfer to ICU if patient respiratory parameters have not improved after 4 naloxone doses. naloxone (NARCAN) injection 0.4 mg 0.4 mg, Intravenous, EVERY 2 MIN PRN, op ioid reversal, Starting on Thu04/05/21 at 1704, Administer intravenous route when available and notify provider when administered. For unintended sedation or res piratory depression if all of the below criteria are met: ~ respiratory rate LESS than or EQUAL to 8. ~ SaO2 less than 92% and or/end-tidal CO2 is greater than 50. ~ the patient is receiving an opioid, has unintended sedation assessed as RASS (-4) or (-5) and patient is currently not on mechanical ventilation. RASS scale (-4) is deep sedation with no response to voice but movement or eye opening to ph ysical stimulation. RASS scale (-5) is u narousable. Patient Monitoring Once the patient has demonstrated a response to the naloxone, continue to monitor respiratory rate, depth, oxygen saturation and en d-tidal CO2 (if available) every 15 star christopher x 2, then every 30 minutes x 2, then every 1 hour x 1 after each naloxone dose. Consider transfer to ICU if patient respiratory parameters have not improved after 4 naloxone doses. naloxone (NARCAN) injection 0.4 mg 0.4 mg, Intramuscular, EVERY 2 MIN PRN, opioid reversal, Starting on Thu04/05/21 at 1704, Administer intramuscular if an intravenous route is not available and notify provider when administered. For un intended sedation or respiratory depress ion if all of the below criteria are met: ~ respiratory rate LESS than or EQUAL to 8. ~ SaO2 less than 92% and or/end-tidal CO2 is greater than 50. ~ the patient is receiving an opioid, has unintended s edation assessed as RASS (-4) or (-5) and patient is currently not on mechanical ventilation. RASS scale (-4) is deep sedation with no response to voice but movem ent or eye opening to physical stimulati on. RASS scale (-5) is unarousable. Patient Monitoring Once the patient has demonstrated a response to the naloxone, continue to monitor respiratory rate, depth, oxygen saturation and end-tidal CO2 (if available) every 15 minutes x 2, then every 30 minutes x 2, then every 1 hour x 1 after each naloxone dose. Consider transfer to ICU if patient respiratory parameters have not improved after 4 naloxone doses. ondansetron (ZOFRAN) injection 4 mg 4 mg, Intravenous, ONCE PRN, nausea, vom iting, Administer over 2-5 Minutes, Starting on Thu04/05/21 at 1514, For 1 dose, Give in ENDO pre procedure prep area. Irritant., Pre-procedure ondansetron (ZOFRAN) injection 4 mg(Linked Group 1) 4 mg, Intravenous, EVERY 6 HOURS PRN, na usea, vomiting, Administer over 2-5 Minutes, Starting on Thu04/05/21 at 1704, This is Step 1 of nausea and vomiting management. If nausea not resolved in 15 star christopher, go to Step 2 prochlorperazine (COMPAZINE). Irritant. ondansetron (ZOFRAN-ODT) ODT tab 4 mg(Linked Group 1) 4 mg, Oral, EVERY 6 HOURS PRN, nausea, v omiting, Starting on Thu04/05/21 at 1704, This is Step 1 of nausea and vomiting management. If nausea not resolved in 15 minutes, go to Step 2 prochlorperazine ( COMPAZINE). Do not push through foil adrián tata. Peel back foil and gently remove. Place on tongue immediately. Administration with liquid unnecessary With dry hands, peel back foil backing and gently melissa ve tablet. Do not push oral disintegrati ng tablet through foil backing. Administer immediately on tongue and oral disintegrating tablet dissolves in seconds, then swallow with saliva. Liquid not required. prochlorperazine (COMPAZINE) injection 10 mg(Linked Group 2) 10 mg, Intravenous, EVERY 6 HOURS PRN, n ausea, vomiting, Administer over 1-2 Minutes, Starting on Thu04/05/21 at 1704, This is Step 2 of nausea and vomiting management. If nausea not resolved in 15-30 minutes, Notify provider. prochlorperazine (COMPAZINE) tablet 10 mg(Linked Group 2) 10 mg, Oral, EVERY 6 HOURS PRN, nausea, vomiting, Starting on Thu04/05/21 at 1704, This is Step 2 of nausea and vomiting management. If nausea not resolved in 15-30 minutes, Notify provider. simethicone (MYLICON) suspension 133 mg 133 mg, Oral, ONCE PRN, other, gas bubbl es, Starting on Thu04/05/21 at 1346, For 1 dose, Give via endoscope, Intra-procedure sodium chloride (PF) 0.9% PF flush 3 mL 3 mL, Intracatheter, EVERY 1 MIN PRN, li ne flush, other, to ensure patency or to lock dormant line, Starting on Thu04/05/21 at 1514, Pre-procedure sodium chloride (PF) 0.9% PF flush 3 mL 3 mL, Intravenous, EVERY 1 HOUR PRN, harlan e flush, Starting on Thu04/05/21 at 1346, Indications: for Peripheral IV flush post IV meds, Intra-procedure sodium chloride (PF) 0.9% PF flush (COMPLETED) 1619 (Given - Provider: Julio Diop RN)1627 (Given - Provider: Julio Diop RN) Intracatheter, PRN, Starting on Thu04/05/21 at 1619 sodium chloride 0.9% (bottle) irrigation (COMPLETED) 1629 (Given - Provider: Julio Diop RN) Irrigation, PRN, Starting on Thu04/05/21 at 1629 Linked Groups Order Group 1: ondansetron (ZOFRAN-ODT) ODT tab 4 mgJump to med 4 mg, Oral, EVERY 6 HOURS PRN, nausea, v omiting, Starting on Thu04/05/21 at 1704
This is Step 1 of nausea and vomiting management. If nausea not resolved in 15 minutes, go t o Step 2 prochlorperazine (COMPAZINE). D o not push through foil backing. Peel back foil and gently remove. Place on tongue immediately. Administration with liquid unnecessary With dry hands, pe el back foil backing and gently remove t ablet. Do not push oral disintegrating tablet through foil backing. Administer immediately on tongue and oral disintegrating tablet dissolves in seconds, then swallow with saliva. Liquid not required.
Or ondansetron (ZOFRAN) injection 4 mgJump to med 4 mg, Intravenous, EVERY 6 HOURS PRN, na usea, vomiting, Administer over 2-5 Minutes, Starting on Thu04/05/21 at 1704
This is Step 1 of nausea and vomiting management. If rom sea not resolved in 15 minutes, go to St ep 2 prochlorperazine (COMPAZINE). Irritant.
Group 2: prochlorperazine (COMPAZINE) injection 10 mgJump to med 10 mg, Intravenous, EVERY 6 HOURS PRN, n ausea, vomiting, Administer over 1-2 Minutes, Starting on Thu04/05/21 at 1704
This is Step 2 of nausea and vomiting management. If nausea not resolved in 15-30 minutes, Notify provider.
Or prochlorperazine (COMPAZINE) tablet 10 mgJump to med 10 mg, Oral, EVERY 6 HOURS PRN, nausea, vomiting, Starting on 04/05/21 at 1704
This is Step 2 of nausea and vomiting management. If nausea not resolved in 15-30 minutes, Notify provider.
documented in this encounter Additional Health Concerns Assessment Noted Time PHQ-9 Depression Total Score: 5 10/18/2020 8:15 AM CDT documented as of this encounter Care Teams Office Asst Relationship Specialty Start Date End Date Francia Nair MD PCP - General Internal Medicine 01/28/13 [address] [place] [address] [phone] Francia Nair MD Assigned PCP 01/07/13 [address] [place] [address] [phone] Julieth Montes Assigned Surgical 03/17/21 LEANA Felton Provider [address] [place] [address] WERNER AVERY [phone] documented as of this encounter
--- OUTSIDE RECORDS SUMMARY | 2022-01-30 11:35 | XMS_ITS | Encounter Summary ---
:1960 Author Organization [facility] Address [address] [place] [address]. [place] [address] Care Team Providers Name Role Phone Francia Nair MD Primary Care Provider Francia Nair MD Unavailable Julieth Montes OD Unavailable [phone] Reason for Visit Auth/Cert Specialty Diagnoses / Procedures Referred By Contact Refer red To Contact Gastroenterology Diagnoses Screen for colon cancer Screen for colon cancer [Z12.11] Endoscopy Procedures HC COLONOSCOPY W/WO BRUSH/WASH COLONOSCOPY [address] [place] [address] Phone: Fax: Referral ID Status Reason Start Date Expiration Date Visits Requ ested Visits Authorized [id number] 1 1 Encounter Details Date Type Department Care Team Description 04/05/2021 Surgery [facility] Kenny Dahl, COLO NOSCOPY, WITH Endoscopy Brian SCHAEFER POLYPECTOMY by using [address] MET[place] cold forcep [place], [place] GASTROINTESTINAL [address] [phone] [place], [place] [address] Surgery Details Date/Time Status Location OR Service Patient Class Case Case Trauma Class Type Case? 04/05/21 Posted GI [facility] Gastroenterology Outpatient 3:10 PM Panel 1 Procedure LRB Anes Op Region Wound Class Commen ts COLONOSCOPY, WITH N/A Conscious Sedation Rectum II-Clean C ontaminated POLYPECTOMY by using cold forcep Surgeon Surgeon Role Service Panel Kenny Dahl MD Primary Gastroenterology 1 Special Needs P s 03/25 jm Pre-Diabetic No Meds (fv) documented in this encounter Social History Tobacco Use Types Packs/Day Years [...] 08/12/2021 relatives? How often do you attend jehovah's witness or taoism Never 08/12/2021 services? Do you belong to any clubs or organizations such as Yes 08/12/2021 jehovah's witness groups, unions, fraternal or athletic groups, or [...] with No / Unsure 04/05/2021 1:35 PM DELIVERY REP someone who was confirmed or suspected to have Coronavirus / COVID-19? documented as of this encounter Last Filed Vital Signs Vital Sign Reading Time Taken Comments Blood Pressure - - Pulse - - Temperature - - Respiratory Rate - - Oxygen Saturation - - Inhaled Oxygen Concentration - - Weight 84.8 kg (187 lb) 04/05/2021 3:12 PM DELIVERY REP Height 163.8 cm (5' 4.5) 04/05/2021 3:12 PM DELIVERY REP Body Mass Index 31.6 04/05/2021 3:12 PM DELIVERY REP documented in this encounter Discharge Instructions Discharge [...] STILL NOT ABLE TO URINATE (PASS WATER). VERY REP documented in this encounter Medications at Time [...] recurrent (H) ??? Controlled substance agreement signed. 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 Gastroesophageal reflux disease with esophagitis [...] Helm MD, MD; Location: [facility] ??? HYSTERECTOMY, ALESSANDRO [...] by: Kenny Dahl MD April 05, 2021 VERY REP documented in this encounter Miscellaneous Notes Result Encounter Note - Kenny Dahl MD - 04/05/2021 5:46 PM CST Pt informed of result. Redo in 5 yr. VERY REP documented in this encounter Plan of Treatment Not on filedocumented as of this encounter Procedures Procedure Name Priority Date/Time Associated Comments Diagnosis SURGICAL PATHOLOGY Routine 04/05/2021 4:44 PM Res ults for this EXAM DELIVERY REP procedure are i n the results section. COLONOSCOPY Routine 04/05/2021 4:18 PM Results f or this DELIVERY REP procedure are i n the results section. COLONOSCOPY, WITH 04/05/2021 3:55 PM Screen for colon POLYPECTOMY AND DELIVERY REP cancer BIOPSY Special Needs P s 03/25 jm Pre-Diabetic No Meds (fv) documented in this encounter Results Surgical Pathology Exam (04/05/2021 4:44 PM DELIVERY REP) Component Value Ref Test Analysis Performed At [facility] Method Time Signature Case Report Surgical Pathology Report ? Case: [id number] ? 04/09/2021 LABORATORY Authorizing Provider: ??Kenny Chand MD ?Collected: ? 04/05/2021 04:44 PM ? 9:57 AM DELIVERY REP Ordering Location: ? [facility] ?Received: ?04/05/2021 05:30 PM ? Endoscopy [facility] ? Pathologist: ? Ivy Avelar ? Specimen: ?Large Intesti ne, Colon, Transverse, transverse colon polyp X1 ? Final A. Large intestine, transverse colon, polyp, polypectomy: 04/09/2021 LABORATORY Electronically Diagnosis -Tubular adenoma. 9:57 AM DELIVERY REP signed by -Negative for high-grade dysplasia or malignancy. Ivy Avelar -Size: 2 mm, completely resected and retrieved (per endoscop y report). on 04/09/2021 at 9:57 AM Clinical Personal 04/09/2021 LABORATORY Information history of 9:57 AM DELIVERY REP colonic polyps. Gross A(1). Large Intestine, Colon, Transverse, transverse c olon polyp X1: 04/09/2021 LABORATORY Description The specimen is received in formalin, labeled with the patient's name, medical record number and other identifying information and designated ? transverse colon polyp x1? . It consists of a single luo 9:57 AM DELIVERY REP soft tissue fragment measur ing 0.4 cm in greatest dimension. Entirely submitted in one cassette. (ALIZA Wheeler ASCP CM) Microscopic Microscopic examination was performed. 04/09/2021 LABORATORY Description 9:57 AM DELIVERY REP Performing The technical 04/09/2021 LABORATORY Labs component of 9:57 AM DELIVERY REP this testing was completed at [facility] Laboratory Case Images 04/09/2021 LABORATORY 9:57 AM DELIVERY REP Specimen Anatomical Collection Method Collection Time Receive d Time (Source) Location / / Volume Laterality Polyp TRANSVERSE COLON 04/05/2021 4:44 PM 04/05 5:30 STRUCTURE / DELIVERY REP PM DELIVERY REP Unknown Kenny HOPPER - SELAM KIMBROUGH Performing Organization Address City/State/ZIP Code [place] [address] Care Lab [address] [facility] Lab (1st floor, no room number) COLONOSCOPY (04/05/2021 4:18 PM DELIVERY REP) [facility] Method Time Signature COLONOSCOPY [facility] RADIOLOGY RESULTS Patient Name: Robbie Woodsonsergiodarrin ?? Procedure Date: 04/05 4:18 PM ? Accou nt Number: [id number] Date of : 1960 ?Admit Type: Out [...] continuously. The ?Olympus Adult Colonoscope, Model # CF-CZ871A, ?Endora # 224, SN # [id number] was introduced through ?the anus and advanced [...] Procedure Code(s): ? --- Professional --- ? 30618, Colonoscopy, flexible; with biopsy, single or multiple Diagnosis Code(s): ? --- Professional --- ? K63.5, Polyp of colon CPT copyright 2020 [employer]. All rights reserved. The codes documented in this report are prelimin dejan and upon police superintendent review may be revised to meet current compliance requirements. Electronically signed by Kenny Dahl MD Kenny Dahl MD 04/05/2021 4:53:48 PM I was physically present for the entire viewing portion of t he exam. Kenny Dahl MD Number of Addenda: 0 Note Initiated On: 04/05/2021 4:18 PM MRN: ?[id number] Procedure Date: ? 04/05/2021 4:18:00 PM Scope Withdrawal Time: 0 hours 6 minutes 17 seconds Total Procedure Duration: 0 hours 26 minutes 30 seconds Estimated Blood Loss: ? Scope In: 4:20:18 PM Scope Out: 4:46:48 PM Specimen (Source) Anatomical Collection Method Collection Time Re ceived Time Location / / Volume Laterality 04/05/2021 4:18 PM DELIVERY REP Kenny Dahl MD PROCEDURES Performing Organization Address City/State/ZIP Code Phon e Number RADIOLOGY RESULTS documented in this encounter Visit Diagnoses Diagnosis Screen for colon cancer Special screening for malignant neoplasm s, colon documented in this encounter Administered Medications Inactive [...] Mouth/Throat, ONCE PRN, moderate pain, Starting on 04/05/21 at 1346, For 1 dose, Holland throat with 1-4 sp rays 5 minutes [...] (PF) (SUBLIMAZE) injection Given 04/05/2021 4:29 PM DELIVERY REP 50 mcg Intravenous, PRN, Administer over 3-5 Minutes, Starting on Thu04/05/21 at 1618 Given 04/05/2021 4:27 PM DELIVERY REP 50 mcg Given 04/05/2021 4:18 PM DELIVERY REP 100 mcg flumazenil (ROMAZICON) injection 0.2 mg 0.2 mg, Intravenous, EVERY 1 MIN PRN, be nzodiazepine reversal, over sedation, when verbally ordered by the prescriber during the procedur e , Administer over 1 Minutes, Starting on Thu04/05/21 at 134 6, For 48 hours, Give [...] midazolam (VERSED) injection Given 04/05/2021 4:29 PM DELIVERY REP 1 mg Intravenous, Administer over 2 Minutes, PRN, Starting on Thu04/05/21 at 1618 Given 04/05/2021 4:27 PM DELIVERY REP 1 mg Given 04/05/2021 4:18 PM DELIVERY REP 2 mg naloxone (NARCAN) injection 0.2 mg [...] 1704, Administer intramuscular if an intravenous ro seneca is not available and notify provider when [...] 1704, Administer intramuscular if an intravenous ro seneca is not available and notify provider when [...] 0.9% PF flush Given 04/05/2021 4:27 PM DELIVERY REP 3 mLs Intracatheter, PRN, Starting on Thu04/05/21 at 1619 Given 04/05/2021 4:19 PM DELIVERY REP 3 mLs sodium chloride 0.9% (bottle) irrigation Given 04/05/2021 4:29 PM DELIVERY REP 500 mLs Irrigation, PRN, Starting on Thu04/05/21 at 1629 documented in this encounter Active and Recently Administered Medications Times are shown in DELIVERY REP. Scheduled Medication Order 04/03/2021 04/04/2021 04/05/2021 fentaNYL [...] on Thu04/05/21 at 1346, For 1 dose, Holland throat with 1-4 sprays 5 minutes prior [...] sodium chloride (PF) 0.9% PF flush (COMPLETED) 1618 (Given - Provider: Julio Diop RN)1627 (Given - Provider: Julio Diop RN) Intracatheter, PRN, Starting on Thu04/05/21 at 1619 sodium chloride 0.9% (bottle) irrigation (COMPLETED) 162 (Given - Provider: Julio Diop RN) Irrigation, [...] documented as of this encounter Care Teams Cytotechnologist/Cytology Supervisor Relationship Specialty Start Date End Date Francia Nair MD PCP - General Internal Medicine 01/28/13 [address] [place], [place] [address] Francia Nair MD Assigned PCP 01/07/13 [address] [place], [place] [address] Julieth Montes Assigned Surgical 03/17/21 LEANA Felton Provider [address] [place] [address] WERNER AVERY [phone] documented as of this encounter
--- OUTSIDE RECORDS SUMMARY | 2022-01-30 11:35 | XMS_ITS | Encounter Summary ---
:1960 Author Organization [facility] Address [address] [place] [address]. [place] [address] Care Team Providers Name Role Phone Francia Nair MD Primary Care Provider Francia Nair MD Unavailable Julieth Montes OD Unavailable [phone] Encounter Details Date Type Department Care Team Description 03/21/2021 Orders Only [facility] Kenny Dahl for screening Clinic Tiffany Carvalho MD for other viral [address] [place] [address] N [place] diseases [place], [place] GASTROINTESTINAL [address] [address] [phone] [place] [address] Social History Tobacco Use Types Packs/Day Years [...] 08/12/2021 relatives? How often do you attend restorationism or congregation Never 08/12/2021 services? Do you belong to any clubs or organizations such as Yes 08/12/2021 restorationism groups, unions, fraternal or athletic groups, or [...] with No / Unsure 03/14/2021 9:17 AM ORDER EXPEDITER someone who was confirmed or suspected to have Coronavirus / COVID-19? documented as of this encounter Plan of Treatment Not on filedocumented as of this encounter Results Asymptomatic COVID-19 Virus (Coronavirus) by PCR Nose (04/01/2021 10:59 AM ORDER EXPEDITER) [facility] Method Time Signature SARS CoV2 PCR Negative Negative, 04/02/2021 [facility] Testing sent to 2:59 PM ORDER EXPEDITER LABORATORY reference lab. Results will be returned via unsolicited result Comment: NEGATIVE: SARS-CoV-2 (COVID-19) RNA not detected, presumed negative. Specimen Anatomical Collection Method Collection Time Receive d Time (Source) Location / / Volume Laterality Swab NASAL STRUCTURE / Non-blood 04/01/2021 10:59 2020 Unknown Collection / AM ORDER EXPEDITER 10:59 AM ORDER EXPEDITER Unknown Narrative [facility] - 04/02/2021 2:[address] Testing was performed using the Aptima SARS-CoV-2 Assay on the [employer] Instrument System. Additional in formation about this Emergency Use Authorization (EUA) assay can be found via the Lab Guide. This test should be ordered for t he detection of SARS-CoV-2 in individuals who meet SARS-CoV-2 clinical and/or epidemiological criteria. Test performance is unknown in asymptomatic patients. This test is for in vitro diagnostic use unde r the FDA EUA for laboratories certified under CLIA to per form high complexity testing. This test has not been FDA cleared or ap proved. A negative result does not rule out the presence of PCR in hibitors in the specimen or target RNA in concentration below the li igor of detection for the assay. The possibility of a false negati ve should be considered if the patient's recent exposure or clinica l presentation suggests COVID-19. This test was validated by the [facility] Infectious Diseases Diagnostic Laboratory. This lab oratory is certified under the Clinical Laboratory Improvement Amen dments of 1987 (CLIA-88) as qualified to perform high complexity lab oratory testing. Kenny Dahl MD LAB - MICRO GENERAL ORDERABL ES Performing Organization Address City/State/ZIP Code Phon e Number [facility] [place] [id number] Diag. Lab [address] [facility], Room [address]297 [facility] Infectious [place], [place] [phone] Diseases Diagnostic [id number], [facility] Lab (IDDL) [address] [facility], Room D297 documented in this encounter Visit Diagnoses Diagnosis Encounter for screening for other viral diseases documented in this encounter Additional Health Concerns Assessment Noted Time PHQ-9 Depression Total Score: 5 10/18/2020 8:15 AM CDT documented as of this encounter Care Teams Commercial Accountant Relationship Specialty Start Date End Date Francia Nair MD PCP - General Internal Medicine 01/28/13 [address] [place] [address] Francia Nair MD Assigned PCP 01/07/13 [address] [place], [place] [address] Julieth Montes Assigned Surgical 03/17/21 LEANA Felton Provider [address] [facility] WERNER AVERY [phone] documented as of this encounter
--- OUTSIDE RECORDS SUMMARY | 2022-01-30 11:35 | XMS_ITS | Encounter Summary ---
:1960 Author Organization [facility] Address [address] [place] [address] Care Team Providers Name Role Phone Francia Nair MD Primary Care Provider Francia Nair MD Unavailable Reason for Visit Reason Comments Medication Refill Encounter Details Date Type Department Care Team Description 12/30/2020 Refill [facility] Kin Nair MD Medication Refill [place] [address] [facility] [address] [place] [address] [facility] [place] [address] [phone] Social History Tobacco Use Types Packs/Day Years [...] 08/12/2021 relatives? How often do you attend rastafarian or shinto Never 08/12/2021 services? Do you belong to any clubs or organizations such as Yes 08/12/2021 rastafarian groups, unions, fraternal or athletic groups, or [...] place to sleep or slept in a retirement (including now)? Sex Assigned at Date Recorded Female 10/16/2020 6:22 PM CDT documented as of this encounter Miscellaneous Notes Telephone Encounter - Robbie Rudd RN - 01/01/2021 5:30 PM CDT Pending Prescriptions: Disp Refills FLUoxetine (PROZAC) 40 MG capsule [Pharmac*90 cap*1 Sig: TAKE 1 CAPSULE BY MOUTH DAILY lisinopril-hydrochlorothiazide (ZESTORETIC*90 tab*0 Sig: TAKE 1 TABLET BY MOUTH DAILY Routing refill request to provider for review/approval because: Fails protocol Next 5 appointments (look out 90 days) Mar 14, 2021 9:20 AM PHYSICAL with Francia Nair MD [facility] ([facility] [place] ) [address] [facility] [phone] documented in this encounter Plan of Treatment Not on filedocumented as of this encounter Visit Diagnoses Diagnosis 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
--- OUTSIDE RECORDS SUMMARY | 2022-01-30 11:35 | XMS_ITS | Encounter Summary ---
:1960 Author Organization [facility] Address [address] [place] [address]. [place] [address] Care Team Providers Name Role Phone Francia Nair MD Primary Care Provider Francia Nair MD Unavailable Julieth Montes OD Unavailable [phone] Encounter Details Date Type Department Care Team Description 06/28/2021 Travel Social History Tobacco Use Types Packs/Day [...] 08/12/2021 relatives? How often do you attend sikh or methodist Never 08/12/2021 services? Do you belong to any clubs or organizations such as Yes 08/12/2021 sikh groups, unions, fraternal or athletic groups, or [...] to sleep or slept in a senior care (including now)? Sex Assigned at Date Recorded Female 10/16/2020 6:22 PM CDT COVID-19 Exposure Response Date Recorded In the last month, have you been in contact with No / Unsure 06/28/2021 12:27 PM [employer]GER someone who was confirmed or suspected to have Coronavirus / COVID-19? documented as of this encounter Plan of Treatment Not on filedocumented as of this encounter Visit Diagnoses Not on filedocumented in this encounter Additional Health Concerns Assessment Noted Time PHQ-9 Depression Total Score: 5 10/18/2020 8:15 AM CDT documented as of this encounter Care Teams Photo Mask Pattern Generator Relationship Specialty Start Date End Date Francia Nair MD PCP - General Internal Medicine 01/28/13 [address] [place] [phone] Francia Nair MD Assigned PCP 01/07/13 [address] [place] [phone] Julieth Montes Assigned Surgical 03/17/21 LEANA Felton Provider [address] [place] [address] WERNER AVERY [phone] documented as of this encounter
--- OUTSIDE RECORDS SUMMARY | 2022-01-30 11:35 | XMS_ITS | Encounter Summary ---
:1960 Author Organization [facility] Address [address] [place] [address]. [place] [address] Care Team Providers Name Role Phone Francia Nair MD Primary Care Provider Francia Nair MD Unavailable Julieth Montes OD Unavailable [phone] Reason for Visit Reason Comments Hypertension Encounter Details Date Type Department Care Team Description 06/28/2021 Emergency [facility] Waldo Baer, Hypertension, unspecified type; [facility] Emergency Paresthesias Dept [facility] [address] [place], [place] [address] [address] [id number] [place] [address] (Wo rk) Social History Tobacco Use Types [...] 08/12/2021 relatives? How often do you attend advent or pentecostal Never 08/12/2021 services? Do you belong to any clubs or organizations such as Yes 08/12/2021 advent groups, unions, fraternal or athletic groups, or [...] place to sleep or slept in a skilled nursing (including now)? Sex Assigned at Date Recorded Female 10/16/2020 6:22 PM CDT COVID-19 Exposure Response Date Recorded In the last month, have you been in contact with No / Unsure 06/28/2021 12:27 PM TRANSPORT ANALYST someone who was confirmed or suspected to have Coronavirus / COVID-19? documented as of this encounter Last Filed Vital Signs Vital Sign Reading Time Taken Comments Blood Pressure 134/75 06/28/2021 4:45 PM TRANSPORT ANALYST Pulse 83 06/28/2021 4:15 PM TRANSPORT ANALYST Temperature 36.6 ??C (97.8 ??F) 06/28/2021 12:36 PM TRANSPORT ANALYST Respiratory Rate 18 06/28/2021 12:36 PM TRANSPORT ANALYST Oxygen Saturation 99% 06/28/2021 4:45 PM TRANSPORT ANALYST Inhaled Oxygen Concentration - - Weight - - Height - - Body Mass Index - - documented in this encounter Discharge Instructions Discharge InstructionsWaldo Baer DO - 06/28/2021 4:58 PM TRANSPORT ANALYST What do you do next: Continue your home medications unless we have specifically changed them You may use [id number] Benadryl on an as-needed basis for the prickly symptoms you are feeling. Follow up as indicated below When do you return: If you have uncontrollable chest pain, severe shortness of breath, focal numbness or weakness of your face, arms, or legs, or any other symptoms that concern you, please return to the ED for reevaluation. Thank you for allowing us to care for you today. SPORT ANALYST AttachmentsThe following attachments cannot be sent through Care Everywhere. Paraesthesias (Tanzanian)Hypertension, Established (Tanzanian)documented in this encounter Medications at Time of [...] tabletIndications: Benign essential hypertension FLUoxetine (PROZAC) 10 Take 1 capsule (10 85 capsule 0 06/0408/08/2021 MG capsuleIndications: mg) by mouth daily Mild episode of for 7 days, THEN 2 recurrent major capsules (20 mg) depressive disorder (H) daily for 7 days, THEN 4 capsules (40 mg) daily for 16 days. 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 ABCs intact. SPORT ANALYST Waldo Baer DO - 06/28/2021 12:27 PM CST History Chief Complaint: Hypertension The history is provided by the patient. Robbie Miller is a 61 year old female with history of anxiety, hypertension, and hyperlipidemia who presents with hypertension. Patient has had intermittent sensation of tingling in her upper extremity and torso for the past week. In the evenings she becomes very itchy and has tried topical creams. She describes an internal prickling sensation as well. Here in the ED she has this sensation andshe describes it as if her blood is boiling. Today she took her blood pressure and it was 177/90 after taking her lisinopril- hydrochlorothiazide. Denies shortness of breath or chest pain. No hives. No h eadache. Review of Systems Respiratory: Negative for shortness of breath. Cardiovascular: Negative for chest pain. Skin: Negative for rash. Positive for: itching Neurological: Negative for headaches. Positive for: tingling sensation All other systems reviewed and are negative. Allergies: Varenicline Medications: Proair hfa Prozac Zestoretic Past Medical History: ADD Prediabetes Hypertension Major depression QT prolongation GERD Hyperlipidemia Anxiety Bilateral incipient cataracts Leiomyoma of uterus Past Surgical History: Colonoscopy x2 Hysterectomy, jarad SBO resection Breast reduction Family History: Father: CHF Mother: heart failure Social History: Presents to ED with Physical Exam Patient Vitals for the past 24 hrs: BP Temp Temp src Pulse Resp SpO2 06/28/21 1645 134/75 -- -- -- -- 99 % 06/28/21 1615 (!) 143/79 -- -- 83 -- 97 % 06/28/21 1600 (!) 148/75 -- -- 82 -- 100 % 06/28/21 1545 126/77 -- -- 78 -- 100 % 06/28/21 1500 (!) 147/72 -- -- 78 -- 100 % 06/28/21 1445 (!) 142/81 -- -- 75 -- 100 % 06/28/21 1430 (!) 147/80 -- -- 83 -- 100 % 06/28/21 1415 (!) 148/86 -- -- 85 -- 100 % 06/28/21 1236 (!) 172/82 97.8 ??F (36.6 ??C) Temporal 84 18 100 % Physical Exam Constitutional: Vital signs reviewed as above. HENT: Head: No external signs of trauma noted. Eyes: Pupils are equal, round, and reactive to light. Cardiovascular: Normal rate, regular rhythm, normal heart sounds and intact distal pulses. Pulmonary/Chest: Effort normal and breath sounds normal. No respiratory distress. No wheezes noted. Gastrointestinal: Soft. There is no tenderness. There is no rebound. Musculoskeletal: No deformities appreciated No edema noted Neurological: Patient is alert and oriented to person, place, and time. Speech is fluent, cognition is normal. CN 2-12 intact (PERRL, EOMI, symmetric smile, equal eye squeeze and forehead raise, normal and equal sensation to bilateral forehead/cheek/chin, grossly equal hearing B/L, midline tongue protrusion with nl rtjl-mk-fvok movement, normal shoulder shrug). RUE strength 5/5: do all operator, finger abd, wrist flex/ext, elbow flex/ext. LUE strength 5/5: do all operator, finger abd, wrist flex/ext, elbow flex/ext. RLE strength 5/5: ankle flex/ext, knee flex/ext, hip flex. LLE strength 5/5: ankle flex/ext, knee flex/ext, hip flex. Sensation equal in all 4 extremities. No arm drift. Cerebellar: Normal rapid alternating movements ( cftbod-fzfs-atgblz, rapid pronation/supination, hand rolling) Normal znmf-wn-syvy Skin: Skin is warm and dry. No hives noted. Psychiatric: The patient appears calm Emergency Department Course ECG ECG obtained at 1258, ECG read at [address] & T wave abnormality, consider lateral ischemia Abnormal ECG No significant change as compared to prior, dated 03/01/2020. Rate 84 bpm. NC interval 146 ms. QRS duration 92 ms. QT/QTc 394/465 ms. P-R-T axes 65 5 125. Laboratory: Labs Ordered and Resulted from Time of ED Arrival to Time of ED Departure BASIC METABOLIC PANEL - Abnormal Result Value Sodium 137 Potassium 3.9 Chloride 102 Carbon Dioxide (CO2) 28 Anion Gap 7 Urea Nitrogen 14 Creatinine 0.61 Calcium 9.9 Glucose 119 (*) GFR Estimate >90 TROPONIN I - Normal Troponin I High Sensitivity 8 MAGNESIUM - Normal Magnesium 2.2 TROPONIN I - Normal Troponin I High Sensitivity 9 CBC WITH PLATELETS AND DIFFERENTIAL WBC Count 8.3 RBC Count 4.66 Hemoglobin 14.1 Hematocrit 44.0 MCV 94 MCH 30.3 MCHC 32.0 RDW 12.6 Platelet Count 320 % Neutrophils 66 % Lymphocytes 23 % Monocytes 7 % Eosinophils 2 % Basophils 1 % Immature Granulocytes 1 NRBCs per 100 WBC 0 Absolute Neutrophils 5.5 Absolute Lymphocytes 1.9 Absolute Monocytes 0.6 Absolute Eosinophils 0.2 Absolute Basophils 0.1 Absolute Immature Granulocytes 0.1 Absolute NRBCs 0.0 Emergency Department Course: Reviewed: I reviewed nursing notes, vitals, past medical history and Care Everywhere Assessments/Consults: ED Course as of 06/28/21 1659 ThuJun 28, 2021 1417 Obtained history and examined the patient as noted above. 1621 Rechecked and updated. Interventions: 1434 Benadryl 25 mg IV Disposition: Care of the patient was transferred to my colleague Dr. Cummins pending repeat troponin. Impression & Plan [facility] Diagnoses: None Medical Decision Making: This 61-year-old female patient presents to the ED due to hypertension and what sounds like paresthesias. Please see the HPI and exam for specifics. The patient felt better after Benadryl. I do not seeany gross change on her EKG today compared with her old. 2 troponins are negative. The patient's blood pressure has improved spontaneously. At this time, I have a low suspicion for ACS. I think the patient can be safely discharged. She should follow with her primary care clinic and can certainly return to the ED with new or worsening symptoms. Anticipatory guidance given to patient and spouse prior to discharge. Diagnosis: ICD-10-CM 1. Hypertension, unspecified type I10 2. Paresthesias R20.2 Discharge Medications: New Prescriptions No medications on file Scribe Disclosure: I, Ander Adame, am serving as a scribe at 1:58 PM on 06/28/2021 to document services personally performed by Waldo Baer DO based on my observations and the provider's statements to me. Waldo Baer DO 06/28/211658 SPORT ANALYST documented in this encounter Plan of Treatment Not on filedocumented as of this encounter Procedures Procedure Name Priority Date/Time Associated Comments Diagnosis TROPONIN I STAT 06/28/2021 4:22 PM Results f or this TRANSPORT ANALYST procedure are i n the results section. CBC WITH PLATELETS STAT 06/28/2021 2:19 PM Res ults for this AND DIFFERENTIAL TRANSPORT ANALYST procedure a re in the results section. CBC WITH PLATELETS & STAT 06/28/2021 2:19 PM R esults for this DIFFERENTIAL TRANSPORT ANALYST procedure are i n the results section. TROPONIN I STAT 06/28/2021 2:19 PM Results f or this TRANSPORT ANALYST procedure are i n the results section. MAGNESIUM STAT 06/28/2021 2:19 PM Results f or this TRANSPORT ANALYST procedure are i n the results section. BASIC METABOLIC PANEL STAT 06/28/2021 2:19 PM Results for this TRANSPORT ANALYST procedure are i n the results section. EKG 12-LEAD, TRACING STAT 06/28/2021 12:58 Res ults for this ONLY PM TRANSPORT ANALYST procedure are i n the results section. documented in this encounter Results Troponin I (06/28/2021 4:22 PM TRANSPORT ANALYST) athologist Signature Troponin I High 9 <54 ng/L 06/28/2021 LABORATORY Sensitivity 4:54 PM TRANSPORT ANALYST Comment: This Troponin-I result was obta ined using a Siemens Dimension [place] High Sensitivity Troponin-I assay (TNIH). Eff ective 03/19/21, nine labs/sites in the [facility] switched from a Siemens [place] Contemporary Troponin I assay (CTNI) to a Siemens [place] High-Sensitivity Troponi n I assay (TNIH). Specimen Anatomical Collection Method / Collection Time Recei lise Time (Source) Location / Volume Laterality Blood STRUCTURE OF LEFT Venipuncture / 06/28/2021 4:22 06/28 4:32 UPPER LIMB / Unknown PM TRANSPORT ANALYST PM TRANSPORT ANALYST Unknown Waldo Baer DO LAB - BLOOD ORDERABLES Performing Organization Address City/State/ZIP Code [place] [address] Care [facility] [address] Lab (1st floor, no room number) Magnesium (06/28/2021 2:19 PM TRANSPORT ANALYST) athologist Signature Magnesium 2.2 1.6 - 2.3 06/28/2021 LABORATORY mg/dL 2:54 PM TRANSPORT ANALYST Specimen Anatomical Collection Method / Collection Time Recei lise Time (Source) Location / Volume Laterality Blood STRUCTURE OF LEFT Venipuncture / 06/28/2021 2:19 06/28 2:24 UPPER LIMB / Unknown PM TRANSPORT ANALYST PM TRANSPORT ANALYST Unknown Waldo Baer DO LAB - BLOOD ORDERABLES Performing Organization Address City/State/ZIP Code Phon [place] [phone] Care [facility] [address] Lab (1st floor, no room number) CBC with platelets and differential (06/28/2021 2:19 PM TRANSPORT ANALYST) Analysis Performed At Patho logist Time Signature WBC Count 8.3 4.0 - 11.0 06/28/2021 [facility] LABORATORY 10e3/uL 2:27 PM TRANSPORT ANALYST RBC Count 4.66 3.80 - 06/28/2021 [facility] LABORATORY 5.20 2:27 PM TRANSPORT ANALYST 10e6/uL Hemoglobin 14.1 11.7 - 06/28/2021 RH LABORATORY 15.7 g/dL 2:27 PM TRANSPORT ANALYST Hematocrit 44.0 35.0 - 06/28/2021 RH LABORATORY 47.0 % 2:27 PM TRANSPORT ANALYST MCV 94 78 - 100 06/28/2021 [facility] LABORATORY fL 2:27 PM TRANSPORT ANALYST MCH 30.3 26.5 - 06/28/2021 RH LABORATORY 33.0 pg 2:27 PM TRANSPORT ANALYST MCHC 32.0 31.5 - 06/28/2021 [facility] LABORATORY 36.5 g/dL 2:27 PM TRANSPORT ANALYST RDW 12.6 10.0 - 06/28/2021 [facility] LABORATORY 15.0 % 2:27 PM TRANSPORT ANALYST Platelet Count 320 150 - 450 06/28/2021 [facility] LABORATORY 10e3/uL 2:27 PM TRANSPORT ANALYST % Neutrophils 66 % 06/28/2021 [facility] LABORATORY 2:27 PM TRANSPORT ANALYST % Lymphocytes 23 % 06/28/2021 [facility] LABORATORY 2:27 PM TRANSPORT ANALYST % Monocytes 7 % 06/28/2021 [facility] LABORATORY 2:27 PM TRANSPORT ANALYST % Eosinophils 2 % 06/28/2021 [facility] LABORATORY 2:27 PM TRANSPORT ANALYST % Basophils 1 % 06/28/2021 [facility] LABORATORY 2:27 PM TRANSPORT ANALYST % Immature 1 % 06/28/2021 [facility] LABORATORY Granulocytes 2:27 PM TRANSPORT ANALYST NRBCs per 100 WBC 0 <1 /100 06/28/2021 RH LABORATO RY 2:27 PM TRANSPORT ANALYST Absolute 5.5 1.6 - 8.3 06/28/2021 [facility] LABORATORY Neutrophils 10e3/uL 2:27 PM TRANSPORT ANALYST Absolute 1.9 0.8 - 5.3 06/28/2021 [facility] LABORATORY Lymphocytes 10e3/uL 2:27 PM TRANSPORT ANALYST Absolute 0.6 0.0 - 1.3 06/28/2021 [facility] LABORATORY Monocytes 10e3/uL 2:27 PM TRANSPORT ANALYST Absolute 0.2 0.0 - 0.7 06/28/2021 [facility] LABORATORY Eosinophils 10e3/uL 2:27 PM TRANSPORT ANALYST Absolute 0.1 0.0 - 0.2 06/28/2021 [facility] LABORATORY Basophils 10e3/uL 2:27 PM TRANSPORT ANALYST Absolute Immature 0.1 <=0.4 06/28/2021 RH LABORATO RY Granulocytes 10e3/uL 2:27 PM TRANSPORT ANALYST Absolute NRBCs 0.0 10e3/uL 06/28/2021 RH LABORATORY 2:27 PM TRANSPORT ANALYST Specimen Anatomical Collection Method / Collection Time Recei lise Time (Source) Location / Volume Laterality Blood STRUCTURE OF LEFT Venipuncture / 06/28/2021 2:19 06/28 2:24 UPPER LIMB / Unknown PM TRANSPORT ANALYST PM TRANSPORT ANALYST Unknown Waldo Shantanu [facility] LAB - BLOOD ORDERABLES Performing Organization Address City/[facility]/[place] [phone] Care Lab [address] Lab (1st floor, no room number) Troponin I (06/28/2021 2:19 PM TRANSPORT ANALYST) P athologist Signature Troponin I High 8 <54 ng/L 06/28/2021 [facility] LABORATORY Sensitivity 2:55 PM TRANSPORT ANALYST Comment: This Troponin-I result was obta ined using a Siemens Dimension [place] High Sensitivity Troponin-I assay (TNIH). Eff ective 03/19/21, nine labs/sites in the [facility] switched from a Siemens [place] Contemporary Troponin I assay (CTNI) to a Siemens [place] High-Sensitivity Troponi n I assay (TNIH). Specimen Anatomical Collection Method / Collection Time Recei lise Time (Source) Location / Volume Laterality Blood STRUCTURE OF LEFT Venipuncture / 06/28/2021 2:19 06/28 2:24 UPPER LIMB / Unknown PM TRANSPORT ANALYST PM TRANSPORT ANALYST Unknown Waldo Fournier [facility] LAB - BLOOD ORDERABLES Performing Organization Address City/[facility]/[place] [address] Care Lab [address] Lab (1st floor, no room number) (ABNORMAL) Basic metabolic panel (06/28/2021 2:19 PM TRANSPORT ANALYST) Analysis Performed At Patho logist Time Signature Sodium 137 133 - 144 06/28/2021 LABORATORY mmol/L 2:50 PM TRANSPORT ANALYST Potassium 3.9 3.4 - 5.3 06/28/2021 LABORATORY mmol/L 2:50 PM TRANSPORT ANALYST Chloride 102 94 - 109 06/28/2021 LABORATORY mmol/L 2:50 PM TRANSPORT ANALYST Carbon Dioxide 28 20 - 32 06/28/2021 LABORATORY (CO2) mmol/L 2:50 PM TRANSPORT ANALYST Anion Gap 7 3 - 14 06/28/2021 LABORATORY mmol/L 2:50 PM TRANSPORT ANALYST Urea Nitrogen 14 7 - 30 06/28/2021 LABORATORY mg/dL 2:50 PM TRANSPORT ANALYST Creatinine 0.61 0.52 - 06/28/2021 LABORATORY 1.04 mg/dL 2:50 PM TRANSPORT ANALYST Calcium 9.9 8.5 - 10.1 06/28/2021 LABORATORY mg/dL 2:50 PM TRANSPORT ANALYST Glucose 119 (H) 70 - 99 06/28/2021 LABORATORY mg/dL 2:50 PM TRANSPORT ANALYST GFR Estimate >90 >60 06/28/2021 LABORATORY mL/min/1.7 2:50 PM TRANSPORT ANALYST 3m2 Comment: Effective April 16, 2021 eGF Rcr in adults is calculated using the 2020 CKD-EPI creatinine equation which includ es age and gender (Yamil et al., [place], DOI: 10.1056/HVSBub6909592) Specimen Anatomical Collection Method / Collection Time Recei lise Time (Source) Location / Volume Laterality Blood STRUCTURE OF LEFT Venipuncture / 06/28/2021 2:19 06/28 2:24 UPPER LIMB / Unknown PM TRANSPORT ANALYST PM TRANSPORT ANALYST Unknown Waldo Baer DO LAB - BLOOD ORDERABLES Performing Organization Address City/State/ZIP Code Phon [place] [address] Care Lab [address] Lab (1st floor, no room number) EKG 12-lead, tracing only (06/28/2021 12:58 PM TRANSPORT ANALYST) Component Value Ref Range Test Analysis Performed Pathologis t Method Time At Signature Systolic Blood mmHg RADIOLOGY Pressure RESULTS Diastolic Blood mmHg RADIOLOGY Pressure RESULTS Ventricular Rate 84 BPM RADIOLOGY RESULTS Atrial Rate 84 BPM RADIOLOGY RESULTS NC Interval 146 ms RADIOLOGY RESULTS QRS Duration 92 ms RADIOLOGY RESULTS QT 394 ms RADIOLOGY RESULTS QTc 465 ms RADIOLOGY RESULTS P [place] 65 degrees RADIOLOGY RESULTS R AXIS 5 degrees RADIOLOGY RESULTS T [place] 125 degrees RADIOLOGY RESULTS Interpretation Sinus rhythm RADIOLOGY ECG ST & T wave abnormality, consider lateral ischemia RESULTS Abnormal ECG When compared with ECG of 11-JAN-2019 20:51, No significant change was found Confirmed by - EMERGENCY KATJA Sanderson PHYSICIAN ([id number]), purchase request editor LORI VILLANUEVA ([id number]) on 06/29/2021 7:33:45 AM Specimen Anatomical Collection Method Collection Time Receive d Time (Source) Location / / Volume Laterality 06/28/2021 12:58 06/29/2021 7:33 PM TRANSPORT ANALYST AM TRANSPORT ANALYST Waldo Baer DO ECG ORDERABLES Performing Organization Address City/State/ZIP Code Phon e Number RADIOLOGY RESULTS documented in this encounter Visit Diagnoses Diagnosis Hypertension, unspecified type Paresthesias Disturbance of skin sensation documented in this encounter Administered Medications Inactive Administered Medications - up to 3 most recent administrations Medication Order MAR Action Action Date Dose Rate Site diphenhydrAMINE (BENADRYL) Given 06/28/2021 2:34 PM TRANSPORT ANALYST 25 mg injection 25 mg 25 mg, Intravenous, ONCE, On Thu06/28/21 at 1435, For 1 dose documented in this encounter Active and Recently Administered Medications Times are shown in TRANSPORT ANALYST. Scheduled Medication Order 06/26/2021 06/27/2021 06/28/2021 diphenhydrAMINE (BENADRYL) injection 25 mg (COMPLETED) 1434 (Given - Provider: Joselin Pineda RN) 25 mg, Intravenous, ONCE, On Thu06/28/21 at 1435, For 1 dose documented in this encounter Additional Health Concerns Assessment Noted Time PHQ-9 Depression Total Score: 5 10/18/2020 8:15 AM CDT documented as of this encounter Care Teams Hydraulic Mechanic Relationship Specialty Start Date End Date Francia Nair MD PCP - General Internal Medicine 01/28/13 [address] [facility] [address] [place] [address] Francia Nair MD Assigned PCP 01/07/[address] [place], [place] [address] Julieth Montes Assigned Surgical 03/17/21 LEANA Felton Provider [address] [facility] WERNER AVERY [id number] documented as of this encounter
--- OUTSIDE RECORDS SUMMARY | 2022-01-30 11:35 | XMS_ITS | Encounter Summary ---
:1960 Author Organization [facility] Address [address] [place] [address] Care Team Providers Name Role Phone Francia Nair MD Primary Care Provider Francia Nair MD Unavailable Encounter Details Date Type Department Care Team Description 07/19/2020 Travel Social History Tobacco Use Types Packs/Day [...] 08/12/2021 relatives? How often do you attend jainism or mosque Never 08/12/2021 services? Do you belong to any clubs or organizations such as Yes 08/12/2021 jainism groups, unions, fraternal or athletic groups, [...] been in contact with No / Unsure 07/19/2020 1:40 PM CDT someone who was confirmed or suspected to have Coronavirus / COVID-19? documented as of this encounter Plan of Treatment Not on filedocumented as of this encounter Visit Diagnoses Not on filedocumented in this encounter Additional Health Concerns Assessment Noted Time PHQ-9 Depression Total Score: 7 03/05/2020 7:11 AM RADIOLOGIC TECH documented as of this encounter Care Teams Residential Monitor Relationship Specialty Start Date End Date Francia Nair MD PCP - General Internal Medicine 01/28/13 [address] [place] [phone] Francia Nair MD Assigned PCP 01/07/13 [address] [place] [address] documented as of this encounter
--- OUTSIDE RECORDS SUMMARY | 2022-01-30 11:35 | XMS_ITS | Encounter Summary ---
:1960 Author Organization [facility] Address [address] [place] [address]. [place] [address] Care Team Providers Name Role Phone Francia Nair MD Primary Care Provider Francia Nair MD Unavailable Julieth Montes OD Unavailable [phone] Encounter Details Date Type Department Care Team Description 07/31/2021 Travel Social History Tobacco Use Types Packs/Day [...] How often do you attend rastafarian or buddhist Never 08/12/2021 services? Do you [...] been in contact with No / Unsure 07/31/2021 7:58 PM CDT someone who was confirmed or suspected to have Coronavirus / COVID-19? documented as of this encounter Plan of Treatment Not on filedocumented as of this encounter Visit Diagnoses Not on filedocumented in this encounter Additional Health Concerns Assessment Noted Time PHQ-9 Depression Total Score: 5 10/18/2020 8:15 AM CDT documented as of this encounter Care Teams Photographer Apprentice Relationship Specialty Start Date End Date Francia Nair MD PCP - General Internal Medicine 01/28/13 [address] [place] [phone] Francia Nair MD Assigned PCP 01/07/13 [address] [place] [address] [phone] Julieth Montes Assigned Surgical 03/17/21 LEANA Felton Provider [address] [place] [address] WERNER AVERY [phone] documented as of this encounter
--- OUTSIDE RECORDS SUMMARY | 2022-01-30 11:35 | XMS_ITS | Encounter Summary ---
:1960 Author Organization [facility] Address [address] [place] [address]. [place] [address] Care Team Providers Name Role Phone Francia Nair MD Primary Care Provider Francia Nair MD Unavailable Julieth Montes OD Unavailable [phone] Encounter Details Date Type Department Care Team Description 04/05/2021 Travel Social History Tobacco Use Types Packs/Day [...] 08/12/2021 relatives? How often do you attend pres[employer] or tenriism Never 08/12/2021 services? Do you belong to any clubs or organizations such as Yes 08/12/2021 presybeterian groups, unions, fraternal or athletic groups, or [...] with No / Unsure 04/05/2021 1:35 PM AIRCRAFT CAPTAIN someone who was confirmed or suspected to have Coronavirus / COVID-19? documented as of this encounter Plan of Treatment Not on filedocumented as of this encounter Visit Diagnoses Not on filedocumented in this encounter Additional Health Concerns Assessment Noted Time PHQ-9 Depression Total Score: 5 10/18/2020 8:15 AM CDT documented as of this encounter Care Teams Acquisitions Assistant Relationship Specialty Start Date End Date Francia Nair MD PCP - General Internal Medicine 01/28/13 [address] [place] [address] [phone] Francia Nair MD Assigned PCP 01/07/13 [address] [place] [address] [phone] Julieth Montes Assigned Surgical 03/17/21 LEANA Felton Provider [address] [place] [address] WERNER AVERY [phone] documented as of this encounter
--- OUTSIDE RECORDS SUMMARY | 2022-01-30 11:35 | XMS_ITS | Encounter Summary ---
:1960 Author Organization [facility] Address [address] [place] [id number] Care Team Providers Name Role Phone Francia Nair MD Primary Care Provider Francia Nair MD Unavailable Reason for Referral Diagnostic Imaging Dexa (Routine) - Pending Review Specialty Diagnoses / Procedures Referred By Contact Refer red To Contact Diagnoses Asymptomatic postmenopausal status Francia Nair MD Procedures DX Hip/Pelvis/Spine [address] [facility] [address] [place] [address] Referral ID Status Reason Start Date Expiration Date Visits V isits Requested Authorized [id number] Pending 03/18/2021 03/18/2022 1 1 Review iagnostic Procedure Outpatient (Routine) - Referral NOT Required Specialty Diagnoses / Procedures Referred By Contact Refer red To Contact Gastroenterology Diagnoses Screen for colon cancer Francia Nair MD [facility] [address] [facility] [address] [place] [address] [place] [address] Phone: Fax: Referral ID Status Reason Start Date Expiration Date Visits V isits Requested Authorized [id number] Referral NOT 03/18/2021 03/18/2022 1 1 Required Scheduling Instructions If EUS or ERCP is selected, it requires clinical review prior to scheduling. iagnostic Imaging CT Scan (Routine) - Authorized Specialty Diagnoses / Procedures Referred By Contact Refer red To Contact Radiology. Diagnoses Tobacco use disorder Francia Nair MD Ct Scan Procedures CT Chest Lung Cancer Scrn Low Dose wo [address] [place] [address] [place] [address] Referral ID Status Reason Start Date Expiration Date Visits V isits Requested Authorized [id number] Authorized 03/14/2021 03/14/2022 1 1 RVISORY GEOGRAPHER Reason for Visit Reason Comments Physical Fasting. Encounter Details Date Type Department Care Team Description 03/14/2021 Office Visit [facility] Francia Nair MD Encounter for routine adult health exami [facility] without abnormal findings (Primary Dx); [facility] [place] [address] Mild episode of recurrent ma braxton depressive disorder (H); [address] Benign essential hypertension; [place], [place] Blood glucose abnormal; [place] [address] Anxiety; [id number] Hyperlipidemia LDL goal <130 ; Tobacco use disorder; Eczema, u nspecified type; Asymptomatic po stmenopausal status; Screen for colo n cancer Social History Tobacco Use Types Packs/Day Years [...] 08/12/2021 relatives? How often do you attend bahai or scientology Never 08/12/2021 services? Do you belong to any clubs or organizations such as Yes 08/12/2021 bahai groups, unions, fraternal or athletic groups, or [...] with No / Unsure 03/14/2021 9:17 AM SUPERVISORY GEOGRAPHER someone who was confirmed or suspected to have Coronavirus / COVID-19? documented as of this encounter Last Filed Vital Signs Vital Sign Reading Time Taken Comments Blood Pressure 143/79 03/14/2021 9:24 AM SUPERVISORY GEOGRAPHER Pulse 83 03/14/2021 9:24 AM SUPERVISORY GEOGRAPHER Temperature 36.6 ??C (97.8 ??F) 03/14/2021 9:24 AM SUPERVISORY GEOGRAPHER Respiratory Rate 20 03/14/2021 9:24 AM SUPERVISORY GEOGRAPHER Oxygen Saturation 98% 03/14/2021 9:24 AM SUPERVISORY GEOGRAPHER Inhaled Oxygen Concentration - - Weight 89 kg (196 lb 4.8 oz) 03/14/2021 9:24 AM SUPERVISORY GEOGRAPHER Height 163.8 cm (5' 4.5) 03/14/2021 9:24 AM SUPERVISORY GEOGRAPHER Body Mass Index 33.17 03/14/2021 9:24 AM SUPERVISORY GEOGRAPHER documented in this encounter Patient Instructions Patient InstructionsFrancia Nair MD - 03/14/2021 9:30 AM CST Take Fluoxetine 40 mg 1 day, then take 20 mg (2 of the 10 mg tablets) the next day, repeat this 2 more times, total of 6 days. Then take 20 mg daily for 6 days. Then take 10 mg the next day, then 20 mg, then 10 mg, then 20 mg, then 10 mg daily for 6 days, then skip a day, take 10 mg, skip a day, 10 mgand then stop. RVISORY GEOGRAPHER documented in this encounter Progress Notes Francia Nair MD - 03/14/2021 9:30 AM CST SUBJECTIVE: CC: Robbie Miller is an 61 year old woman who presents for preventive health visit. Patient has been advised of split billing requirements and indicates understanding: Yes Healthy Habits: Getting at least 3 servings of Calcium per day: Yes Bi-annual eye exam: Yes Dental care twice a year: Yes Sleep apnea or symptoms of sleep apnea: None Diet: Low salt Frequency of exercise: 4-5 days/week Duration of exercise: 30-45 minutes Taking medications regularly: Yes Medication side effects: None PHQ-2 Total Score: 1 Additional concerns today: No Ability to successfully perform activities of daily living: Yes, no assistance needed Home safety: none identified Hearing impairment: Yes, Patient wear hearing aid Problems: 1. HTN: home readings have been around 140/90 but has not checked in some months 2. Abnormal glucose: she tried metformin 500 mg but could not increase the dose due to GI side effects, stopped completely about 2 months ago. 3. Hyperlipidemia: diet stable 4. Depression/Anxiety: she feels she would like to go off medication as she has been doing well for a long time. Patient Active Problem List Diagnosis ??? Tobacco use disorder ??? Benign essential hypertension ??? Obesity ??? ADD (attention deficit disorder) ??? Major depression, recurrent (H) ??? Controlled substance agreement signed. CLINICAL NURSE-ok- 01/27/20 ??? Gastroesophageal reflux disease with esophagitis [...] days as directed 36 capsule 0 ??? FLUoxetine (PROZAC) 40 MG capsule TAKE 1 CAPSULE BY MOUTH DAILY 90 capsule 1 ??? lisinopril-hydrochlorothiazide (ZESTORETIC) 10-12.5 MG tablet Take 1 tablet by mouth daily 90 tablet 3 ??? triamcinolone (KENALOG) 0.1 % external cream Apply topically 2 times daily 30 g 3 ??? metFORMIN (GLUCOPHAGE-XR) 500 MG 24 hr tablet Take 1 tablet (500 mg) by mouth daily (with dinner) (Patient not taking: Reported on 03/14/2021) 90 tablet 1 Today's PHQ-2 Score: PHQ-2 (??1998 Pfizer) 02/29/2020 Q1: Little interest or pleasure in doing things 1 Q2: Feeling down, depressed or hopeless 1 PHQ-2 Score 2 Q1: Little interest or pleasure in doing things Several days Q2: Feeling down, depressed or hopeless Several days PHQ-2 Score 2 Abuse: Current or Past (Physical, Sexual or Emotional) - No Do you feel safe in your environment? Yes Social History Tobacco Use ??? Smoking status: Former Smoker Types: Cigarettes Quit date: 05/10/2018 Years since quittin.8 ??? Smokeless tobacco: Never Used ??? Tobacco comment: 06/28 PPD- Substance Use Topics ??? Alcohol use: Yes Comment: ocassional 3-4 drinks per month If you drink alcohol do you typically have >3 drinks per day or >7 drinks per week? No No flowsheet data found. Reviewed orders with patient. Reviewed health maintenance and updated orders accordingly - Yes Breast Cancer Screening: Any new diagnosis of family breast, ovarian, or bowel cancer? FHS-7: No flowsheet data found. click delete button to remove this line now Mammogram Screening: Recommended mammography every 1-2 years with patient discussion and risk factorconsideration Pertinent mammograms are reviewed under the imaging tab. History of abnormal Pap smear: Status post benign hysterectomy. Health Maintenance and Surgical History updated. Reviewed and updated as needed this visit by clinical staff Reviewed and updated as needed this visit by Provider Review of Systems Constitutional: Negative for chills and fever. HENT: Positive for sore throat. Negative for congestion, ear pain and hearing loss. Eyes: Positive for visual disturbance. Negative for pain. Respiratory: Positive for shortness of breath. Negative for cough. Cardiovascular: Positive for palpitations and peripheral edema. Negative for chest pain. Gastrointestinal: Positive for heartburn and nausea. Negative for abdominal pain, constipation, diarrhea and hematochezia. Breasts: Negative for tenderness, breast mass and discharge. Genitourinary: Positive for frequency and urgency. Negative for genital sores, hematuria, pelvic pain, vaginal bleeding and vaginal discharge. Musculoskeletal: Positive for joint swelling. Negative for arthralgias and myalgias. Skin: Positive for rash. Neurological: Positive for weakness and headaches. Negative for dizziness and paresthesias. Psychiatric/Behavioral: Positive for mood changes. The patient is not nervous/anxious. Above are all minor symptoms, stable Check mole on left lateral chest, present years but getting bigger OBJECTIVE: BP (!) 143/79 (BP Location: Right arm, Patient Position: Sitting, Cuff Size: Adult Large) Pulse 83 Temp 97.8 ??F (36.6 ??C) (Oral) Resp 20 Ht 1.638 m (5' 4.5) Wt 89 kg (196 lb 4.8 oz) [id number]% BMI 33.17 kg/m?? Physical Exam HEENT: extraocular movements are intact, pupils equal and reactive to light and accommodation, TMs clear NECK: Neck supple. No adenopathy. Thyroid symmetric, normal size,, Carotids without bruits. PULMONARY: clear to auscultation CARDIAC: regular rate and rhythm and no murmurs, clicks, or gallops PULSES: 2/2 throughout BACK: no spinal or CVAT ABDOMINAL: Soft, nontender. Normal bowel sounds. No hepatosplenomegaly or abnormal masses BREAST: No breast masses or tenderness, No axillary masses or tenderness and No galactorrhea REFLEXES: 2+ throughout SKIN: Hemangioma leftchest PHQ 09/13/2019 03/05/2020 10/18/2020 PHQ-9 Total Score 10 7 5 Q9: Thoughts of better off /self-harm past 2 weeks Not at all Not at all Not at all ASSESSMENT/PLAN: (Z00.00) Encounter for routine adult health examination without abnormal findings (primary encounterdiagnosis) Comment: recommend screening, see orders Plan: (F33.0) Mild episode of recurrent major depressive disorder (H) Comment: has done well, wean off med, see patient instructions. Plan: FLUoxetine (PROZAC) 10 MG capsule (I10) Benign essential hypertension Comment: borderline, work on low salt diet, recheck with nurse in a month, may increase med then Plan: lisinopril-hydrochlorothiazide (ZESTORETIC) 10-12.5 MG tablet, Basic metabolic panel (Ca, Cl, CO2, Creat, Gluc, K, Na, BUN), Albumin Random Urine Quantitative with Creat Ratio (R73.09) Blood glucose abnormal Comment: recheck, could retry 500 mg tablet since tolerated at first. Plan: Basic metabolic panel (Ca, Cl, CO2, Creat, Gluc, K, Na, BUN), Hemoglobin A1c (F41.9) Anxiety Comment: stable. Plan: (E78.5) Hyperlipidemia LDL goal <130 Comment: recheck Plan: Lipid panel reflex to direct LDL Fasting (F17.200) Tobacco use disorder Comment: discussed imaging for screening, she would like to do this. Plan: CT Chest Lung Cancer Scrn Low Dose wo (L30.9) Eczema, unspecified type Comment: stable Plan: triamcinolone (KENALOG) 0.1 % external cream (Z78.0) Asymptomatic postmenopausal status Comment: Plan: DX Hip/Pelvis/Spine (Z12.11) Screen for colon cancer Comment: Plan: Adult Gastro Ref - Procedure Only Patient has been advised of split billing requirements and indicates understanding: Yes COUNSELING: Reviewed preventive health counseling, as reflected in patient instructions lung cancer screening Estimated body mass index is 33.17 kg/m?? as calculated from the following: Height as of this encounter: 1.638 m (5' 4.5). Weight as of this encounter: 89 kg (196 lb 4.8 oz). Weight management plan: Discussed healthy diet and exercise guidelines She reports that she quit smoking about 2 years ago. Her smoking use included cigarettes. She started smoking about 43 years ago. She smoked 1.00 pack per day. She has never used smokeless tobacco. Counseling Resources: ATP IV Guidelines Pooled Cohorts Equation Calculator Breast Cancer Risk Calculator BRCA-Related Cancer Risk Assessment: FHS-7 Tool FRAX Risk Assessment ICSI Preventive Guidelines Dietary Guidelines for Americans, 2010 USDA's MyPlate ASA Prophylaxis Lung CA Screening Francia Nair MD [facility] RVISORY GEOGRAPHER documented in this encounter Nursing Notes Noé Florian MA - 03/14/2021 9:30 AM CST BP (!) 143/79 (BP Location: Right arm, Patient Position: Sitting, Cuff Size: Adult Large) Pulse 83 Temp 97.8 ??F (36.6 ??C) (Oral) Resp 20 Ht 1.638 m (5' 4.5) Wt 89 kg (196 lb 4.8 oz) [id number]% BMI 33.17 kg/m?? RVISORY GEOGRAPHER documented in this encounter Plan of Treatment Scheduled Orders Name Type Priority Associated Diagnoses Order S chedule CT Chest Lung Cancer Imaging Routine Tobacco use disorder Expected: 03/14/2021 Scrn Low Dose wo (Approximat e), Expires: 2021 DX Hip/Pelvis/Spine Imaging Routine Asymptomatic postmeno pausal Expected: 03/18/2021 status (Approximate), Expires: 2021 Scheduled Referrals Name Type Priority Associated Diagnoses Order S chedule Adult Gastro Ref - Referral Routine: Next Screen for colon Expe cted: Procedure Only available opening cancer 03/18/20 21 (Approximate), Expires: 03/18/2022 documented as of this encounter Procedures Procedure Name Priority Date/Time Associated Diagnosis Comme nts ALBUMIN RANDOM URINE Routine 03/14/2021 10:21 Benign essential Results for this QUANTITATIVE AM SUPERVISORY GEOGRAPHER hypertension procedure are i n the results section. LIPID REFLEX TO Routine 03/14/2021 10:20 Hyperlipidemia LDL Re sults for this DIRECT LDL PANEL AM SUPERVISORY GEOGRAPHER goal <130 procedure a re in the results section. HEMOGLOBIN A1C Routine 03/14/2021 10:20 Blood glucose abnormal Results for this AM SUPERVISORY GEOGRAPHER procedure are i n the results section. BASIC METABOLIC Routine 03/14/2021 10:20 Benign essential Resu lts for this PANEL AM SUPERVISORY GEOGRAPHER hypertension procedure are in Blood glucose abnormal the r esults section. documented in this encounter Results Albumin Random Urine Quantitative with Creat Ratio (03/14/2021 10:21 AM SUPERVISORY GEOGRAPHER) P athologist Signature Creatinine 134 mg/dL 03/15/2021 [facility] Urine mg/dL 11:20 AM SUPERVISORY GEOGRAPHER Albumin Urine 8 mg/L 03/15/2021 [facility] mg/L 11:20 AM SUPERVISORY GEOGRAPHER Albumin Urine 5.97 0.00 - 03/15/2021 [facility] mg/g Cr 25.00 mg/g 11:20 AM SUPERVISORY GEOGRAPHER Cr Specimen Anatomical Collection Method Collection Time Receive d Time (Source) Location / / Volume Laterality Urine MID-STREAM URINE Non-blood 03/14/2021 10:21 021 SPECIMEN / Unknown Collection / AM SUPERVISORY GEOGRAPHER 10:31 AM SUPERVISORY GEOGRAPHER Unknown Francia Nair MD LAB - URINE ORDERABLES Performing Organization Address City/State/ZIP Code Phon e Number [facility] Clinic - [place], [place] [phone] [facility] [phone] [place] [address] Lab (no room number, 1st floor of clinic) [facility] [place], [place] [phone] [facility] [phone] [address] Lab (no room number, 1st floor of clinic) (ABNORMAL) Lipid panel reflex to direct LDL Fasting (03/14/2021 10:20 AM SUPERVISORY GEOGRAPHER) [facility] Method Time Signature Cholesterol 244 (H) <200 03/15/2021 [facility] mg/dL 9:29 AM SUPERVISORY GEOGRAPHER Triglycerides 186 (H) <150 03/15/2021 [facility] mg/dL 9:29 AM SUPERVISORY GEOGRAPHER Direct Measure 48 (L) >=50 03/15/2021 [facility] HDL mg/dL 9:29 AM SUPERVISORY GEOGRAPHER LDL Cholesterol 159 (H) <=100 03/15/2021 [facility] Calculated mg/dL 9:29 AM SUPERVISORY GEOGRAPHER Non HDL 196 (H) <130 03/15/2021 [facility] Cholesterol mg/dL 9:29 AM SUPERVISORY GEOGRAPHER Patient Fasting > Yes 03/15/2021 [facility] RY 8hrs? 9:29 AM SUPERVISORY GEOGRAPHER Specimen Anatomical Collection Method / Collection Time Recei lise Time (Source) Location / Volume Laterality Blood STRUCTURE OF LEFT Venipuncture / 03/14/2021 10:20 02/25 UPPER LIMB / Unknown AM SUPERVISORY GEOGRAPHER 10:21 AM SUPERVISORY GEOGRAPHER Unknown Narrative [facility] - 03/15/2021 9:29 AM SUPERVISORY GEOGRAPHER Cholesterol Desirable: ??<200 mg/dL Triglycerides Normal: ??Less than 150 mg/dL Borderline High: ??150-199 mg/dL High: ??200-499 mg/dL Very High: ??Greater than or equal to 50 0 mg/dL Direct Measure HDL Female: ??Greater than or equal to 50 mg /dL Male: ??Greater than or equal to 40 mg/d L LDL Cholesterol Desirable: ??<100mg/dL Above Desirable: ??100-129 mg/dL Borderline High: ??130-159 mg/dL High: ??160-189 mg/dL Very High: ??>= 190 mg/dL Non HDL Cholesterol Desirable: ??130 mg/dL Above Desirable: ??130-159 mg/dL Borderline High: ??160-189 mg/dL High: ??190-219 mg/dL Very High: ??Greater than or equal to 22 0 mg/dL Francia Nair MD LAB - BLOOD ORDERABLES Performing Organization Address City/[facility]/ZIP [facility] Phon e Number [facility] [place], [place] [phone] [facility] [phone] [place] [address] Lab (no room number, 1st floor of clinic) [facility] [place], [place] [phone] [place] [phone] [place] [address] [facility] [address] Lab (no room number, 1st floor of clinic) (ABNORMAL) Hemoglobin A1c (03/14/2021 10:20 AM SUPERVISORY GEOGRAPHER) Analysis Performed At Patho logist Time Signature Hemoglobin A1C 5.8 (H) 0.0 - 5.6 03/14/2021 [facility] % 10:48 AM SUPERVISORY GEOGRAPHER Comment: Normal <5.7% Prediabetes 5.7-6.4% ?? Diabetes 6.5% or higher Note: Adopted from ADA consensus guideli ruth. Specimen Anatomical Collection Method / Collection Time Recei lise Time (Source) Location / Volume Laterality Blood STRUCTURE OF LEFT Venipuncture / 03/14/2021 10:20 02/25 UPPER LIMB / Unknown AM SUPERVISORY GEOGRAPHER 10:21 AM SUPERVISORY GEOGRAPHER Unknown Francia Nair MD LAB - BLOOD ORDERABLES Performing Organization Address [facility] [place] [phone] [place] [facility] [address] [place] [address], [facility] [address], [address] Basic metabolic panel (Ca, Cl, CO2, Creat, Gluc, K, Na, BUN) (03/14/2021 10:20 AM SUPERVISORY GEOGRAPHER) P athologist Signature Sodium 138 133 - 144 03/15/2021 [facility] mmol/L 9:26 AM SUPERVISORY GEOGRAPHER Potassium 4.0 3.4 - 5.3 03/15/2021 [facility] mmol/L 9:26 AM SUPERVISORY GEOGRAPHER Chloride 104 94 - 109 03/15/2021 [facility] mmol/L 9:26 AM SUPERVISORY GEOGRAPHER Carbon Dioxide 30 20 - 32 03/15/2021 [facility] (CO2) mmol/L 9:26 AM SUPERVISORY GEOGRAPHER Anion Gap 4 3 - 14 03/15/2021 [facility] mmol/L 9:26 AM SUPERVISORY GEOGRAPHER Urea Nitrogen 19 7 - 30 03/15/2021 [facility] mg/dL 9:26 AM SUPERVISORY GEOGRAPHER Creatinine 0.71 0.52 - 03/15/2021 [facility] 1.04 mg/dL 9:26 AM SUPERVISORY GEOGRAPHER Calcium 9.2 8.5 - 10.1 03/15/2021 [facility] mg/dL 9:26 AM SUPERVISORY GEOGRAPHER Glucose 94 70 - 99 03/15/2021 [facility] mg/dL 9:26 AM SUPERVISORY GEOGRAPHER GFR Estimate >90 >60 03/15/2021 [facility] mL/min/1.7 9:26 AM SUPERVISORY GEOGRAPHER 3m2 Comment: As of November 04, 2020, eGFR is ca lculated by the CKD-EPI creatinine equation, without race adjustment. eGFR can be inf luenced by muscle mass, exercise, and diet. The reported eGFR is an estimation only and is only applicable if the renal function is stable. Specimen Anatomical Collection Method / Collection Time Recei lise Time (Source) Location / Volume Laterality Blood STRUCTURE OF LEFT Venipuncture / 03/14/2021 10:20 02/25 UPPER LIMB / Unknown AM SUPERVISORY GEOGRAPHER 10:21 AM SUPERVISORY GEOGRAPHER Unknown Francia Nair MD LAB - BLOOD ORDERABLES Performing Organization Address City/State/ZIP Code Phon e Number [facility] [place], [place] [phone] [facility] [phone] Lab (no room number, 1st floor of clinic) [facility] [place], [place] [phone] [facility] [phone] [address] Lab (no room number, 1st floor of clinic) documented in this encounter Visit Diagnoses Diagnosis Encounter for routine adult health exami nation without abnormal findings - Primary Mild episode of recurrent major depressi ve disorder (H) Benign essential hypertension Essential hypertension, benign Blood glucose abnormal Other abnormal glucose Anxiety Anxiety state, unspecified Hyperlipidemia LDL goal <130 Other and unspecified hyperlipidemia Tobacco use disorder Eczema, unspecified type Asymptomatic postmenopausal status Screen for colon cancer Special screening for malignant neoplasm s, colon documented in this encounter Additional Health Concerns Assessment Noted Time PHQ-9 Depression Total Score: 5 10/18/2020 8:15 AM CDT documented as of this encounter Care Teams Dispatcher Ship Pilot Relationship Specialty Start Date End Date Francia Nair MD PCP - General Internal Medicine 01/28/13 [address] [place] [address] [phone] Francia Nair MD Assigned PCP 01/07/13 [address] [place] [phone] documented as of this encounter
--- OUTSIDE RECORDS SUMMARY | 2022-01-30 11:35 | XMS_ITS | Encounter Summary ---
:1960 Author Organization [place] Address [address] [place] [address] Care Team Providers Name Role Phone Francia Nair MD Primary Care Provider Francia Nair MD Unavailable Julieth Montes OD Unavailable [phone] Ip, Alber Vuong MD Unavailable Encounter Details Date Type Department Care Team Description 06/28/2021 Documentation Only INTERFACED REPORT Unknown, Provider Social History Tobacco Use Types Packs/Day Years [...] 08/12/2021 relatives? How often do you attend caodaism or adventism Never 08/12/2021 services? Do you belong to any clubs or organizations such as Yes 08/12/2021 caodaism groups, unions, fraternal or athletic groups, or [...] with No / Unsure 06/28/2021 12:27 PM HOUSING INSPECTORS someone who was confirmed or suspected to have Coronavirus / COVID-19? documented as of this encounter Plan of Treatment Not on filedocumented as of this encounter Visit Diagnoses Not on filedocumented in this encounter Additional Health Concerns Assessment Noted Time PHQ-9 Depression Total Score: 5 10/18/2020 8:15 AM CDT documented as of this encounter Care Teams Office Copy Selector Relationship Specialty Start Date End Date Francia Nair MD PCP - General Internal Medicine 01/28/[address] [place], [place] [phone] Francia Nair MD Assigned PCP 01/07/[address] [place], [place] [address] Julieth Montes Assigned Surgical 03/17/21 LEANA Felton Provider [address] [facility] [place] [id number] Alber Mendez MD Assigned Heart and 08/11/21 [address] Vascular Provider WERN[place] BERNARD [id number] documented as of this encounter
--- OUTSIDE RECORDS SUMMARY | 2022-01-30 11:35 | XMS_ITS | Encounter Summary ---
:1960 Author Organization [facility] Address [address] [place] [address] Care Team Providers Name Role Phone Francia Nair MD Primary Care Provider Francia Nair MD Unavailable Encounter Details Date Type Department Care Team Description 10/18/2020 Travel Social History Tobacco Use Types Packs/Day [...] 08/12/2021 relatives? How often do you attend rastafari or jainism Never 08/12/2021 services? Do you belong to any clubs or organizations such as Yes 08/12/2021 rastafari groups, unions, fraternal or athletic groups, or [...] documented as of this encounter Care Teams Gravel Hauler Relationship Specialty Start Date End Date Francia Nair MD PCP - General Internal Medicine 01/28/13 [address] [place] [address] [id number] Francia Nair MD Assigned PCP 01/07/13 [address] [place], [place] [phone] documented as of this encounter
--- OUTSIDE RECORDS SUMMARY | 2022-01-30 11:35 | XMS_ITS | Encounter Summary ---
:1960 Author Organization [facility] [facility] Address [address] [place] [address] Care Team Providers Name Role Phone Francia Nair MD Primary Care Provider Francia Nair MD Unavailable Reason for Visit Reason Comments Medication Refill Encounter Details Date Type Department Care Team Description 12/11/2020 Refill [facility] Kin Nair MD Medication Refill [place] [address] [facility] [address] [place] [address] [facility] [place] [address] [phone] Social History Tobacco Use Types Packs/Day Years [...] 08/12/2021 relatives? How often do you attend moravian or adventism Never 08/12/2021 services? Do you belong to any clubs or organizations such as Yes 08/12/2021 moravian groups, unions, fraternal or athletic groups, or [...] this encounter Miscellaneous Notes Telephone Encounter - Puma Alvares CMA - 12/14/2020 5:11 PM CDT Relayed message to patient. appt is made for 03/14/21 920am physical/lab She has 2 weeks of Metformin 500mg left. Please send an OK to refill enough to get her to March 07 Thank you Telephone Encounter - Francia Nair MD - 12/14/2020 3:57 PM CDT I would like her to try to continue the 500 mg dose daily, take it with supper. Make sure to have protein with it which helps reduce any stomach upset. Generally insurance may not cover labs done before the appointment so she should plan on doing them at the appointment. Telephone Encounter - Puma Alvares CMA - 12/14/2020 3:20 PM CDT Spoke with patient. She would like clarification as to whether to continue with Metformin and keep taking the 500 mg- with mild GI intolerance (But she did not tolerate well and has GI side effects when she took 1000 mg) Also did you want her to have a lab appt prior to the February physical/lab appt? Telephone Encounter - Francia Nair MD - 12/14/2020 6:57 AM CDT Sorry, I did not check the diagnosis, does not have diabetes and I missed the September visit. Can check lab in February at physical per my last note. Telephone Encounter - Francia Oakley RN - 12/12/2020 2:12 PM CDT Call to patient. Patient states she started on Metformin 500 mg shortly after her September appointment. Patient states she tolerated it okay, but had some GI upset. Patient reports it was her understanding that she needed to increase the metformin to 1000 mg once daily. Patient did so, and states she had worsening GI upset and diarrhea. Patient states she has not taken metformin in about three weeks due to these symptoms. Patient states she will go back on metformin 500 mg once daily if primary care provider thinks that would be enough to help bring down her A1C. Due to this, patient is wondering if provider would still like patient to have labs now? Telephone Encounter - Francia Nair MD - 12/12/2020 2:04 PM CDT She is over 3 months overdue for diabetes lab and appt. Call and schedule patient for lab then follow up with me. Then I can do refill and orders. Telephone Encounter - Sherita Adkins RN - 12/12/2020 11:45 AM CDT Routing refill request to provider for review/approval because: Labs not current: A1c documented in this encounter Plan of Treatment Not on filedocumented as of this encounter Visit Diagnoses Diagnosis Prediabetes Other abnormal glucose documented in this encounter Additional Health Concerns Assessment Noted Time PHQ-9 Depression Total Score: 5 10/18/2020 8:15 AM CDT documented as of this encounter Care Teams Bereavement Program Coordinator Relationship Specialty Start Date End Date Francia Nair MD PCP - General Internal Medicine 01/28/13 [address] [address] Francia Nair MD Assigned PCP 01/07/13 [address] [place], [place] [address] documented as of this encounter
--- OUTSIDE RECORDS SUMMARY | 2022-01-30 11:35 | XMS_ITS | Encounter Summary ---
:1960 Author Organization [place] Address [address] [place] [address] Care Team Providers Name Role Phone Francia Nair MD Primary Care Provider Francia Nair MD Unavailable Reason for Visit Reason Comments Hypertension Encounter Details Date Type Department Care Team Description 10/18/2020 Office Visit [facility] Francia Nair MD Benign essential hypertension (Primary D x); [facility] [place] [address] Prediabetes; [address] Moderate episode of recurrent major depr essive disorder (H); [place], [place] Acute [place], [place] [id number] Social History Tobacco Use Types Packs/Day Years Used Date Former Smoker Cigarettes Quit: 05/10/19 19 Smokeless Tobacco: Never Used Comments: 3/4 PPD- [...] How often do you attend caodaism or mu-ism Never 08/12/2021 services? Do you belong to [...] Sign Reading Time Taken Comments Blood Pressure 135/88 10/18/2020 8:05 AM CDT Pulse 89 10/18/2020 8:05 AM CDT Temperature 37.3 ??C (99.2 ??F) 10/18/2020 8:05 AM CDT Respiratory Rate 16 10/18/2020 8:05 AM CDT Oxygen Saturation 97% 10/18/2020 8:05 AM CDT Inhaled Oxygen Concentration - - Weight 92.5 kg (204 lb) 10/18/2020 8:05 AM CDT Height 163.8 cm (5' 4.5) 10/18/2020 8:05 AM CDT Body Mass Index 34.48 10/18/2020 8:05 AM CDT documented in this encounter Patient Instructions Patient InstructionsFrancia Nair MD - 10/18/2020 7:40 AM CDT Take one a day with supper or largest meal. If you are doing well, you can try 2 daily with supper when you have about 10 days left, then if going well a few days, send me a message and I can send a new prescription. documented in this encounter Progress Notes Francia Nair MD - 10/18/2020 7:40 AM CDT Assessment & Plan Benign essential hypertension Borderline on home readings. Work on low sat diet, monitor. May need to increase med in future Prediabetes Discussed results, causes of elevated sugars, diet, exercise. We discussed medication, she would like to try metformin - metFORMIN (GLUCOPHAGE-XR) 500 MG 24 hr tablet; Take 1 tablet (500 mg) by mouth daily (with dinner) Major depression: stable Return in about 4 months (around 03/02/2021) for Physical Exam. Francia Nair MD [facility] is a 60 year old who presents for the following health issues HPI Hypertension Follow-up ?? Do you check your blood pressure regularly outside of the clinic? Yes ?? Are you following a low salt diet? No ?? Are your blood pressures ever more than 140 on the top number (systolic) OR more than 90 on the bottom number (diastolic), for example 140/90? Yes ?? How many servings of fruits and vegetables do you eat daily? 4 or more ?? On average, how many sweetened beverages do you drink each day (Examples: soda, juice, sweet tea,etc. Do NOT count diet or artificially sweetened beverages)? 0 ?? How many days per week do you exercise enough to make your heart beat faster? 3 or less ?? How many minutes a day do you exercise enough to make your heart beat faster? 9 or less ?? How many days per week do you miss taking your medication? 0 Other problems: Depression: stable Current Concerns: none Patient Active Problem List Diagnosis ??? Tobacco use disorder ??? Benign essential hypertension ??? Obesity ??? ADD (attention deficit disorder) ??? Major depression, recurrent (H) ??? Controlled substance agreement signed. RFID [id number]- 01/27/20 ??? Gastroesophageal reflux disease with esophagitis ??? Obesity (BMI 35.0-39.9) with comorbidity (H) ??? Blood glucose abnormal ? ? Hyperlipidemia LDL goal <130 ??? Prolonged QT interval ??? Anxiety ??? Bilateral incipient cataracts ??? Corneal epithelial and basement membrane dystrophy Current Outpatient Medications Medication Sig Dispense Refill ??? albuterol (PROAIR HFA/PROVENTIL HFA/VENTOLIN HFA) 108 (90 Base) MCG/ACT inhaler Inhale 2 puffs into the lungs every 6 hours as needed for shortness of breath / dyspnea or wheezing 18 g 11 ??? FLUoxetine (PROZAC) 40 MG capsule TAKE 1 CAPSULE BY MOUTH DAILY 90 capsule 1 ??? lisinopril-hydrochlorothiazide (ZESTORETIC) 10-12.5 MG tablet TAKE 1 TABLET BY MOUTH DAILY 90 tablet 0 ??? metFORMIN (GLUCOPHAGE-XR) 500 MG 24 hr tablet Take 1 tablet (500 mg) by mouth daily (with dinner) 30 tablet 1 Social History Tobacco Use ??? Smoking status: Former Smoker Types: Cigarettes Quit date: 05/10/2018 Years since quittin.4 ??? Smokeless tobacco: Never Used ??? Tobacco comment: 06/28 PPD- Substance Use Topics ??? Alcohol use: Yes Comment: ocassional 3-4 drinks per month Review of Systems No fever, chills, no dyspnea on exertion, no chest pain, palpitations, PND, orthopnea, edema, syncope, headache, abdominal pain Objective BP 135/88 Pulse 89 Temp 99.2 ??F (37.3 ??C) (Oral) Resp 16 Ht 1.638 m (5' 4.5) Wt 92.5 kg(204 lb) SpO2 97% BMI 34.48 kg/m?? Body mass index is 34.48 kg/m??. Physical Exam Not examined. Lab Results Component Value Date A1C 6.4 03/01/2020 A1C 6.0 01/07/2018 A1C 6.0 12/29/2013 Lab Results Component Value Date GLC 109 03/01/2020 GLC 136 01/11/2019 GLC 97 06/14/2018 GLC 98 01/07/2018 GLC 116 08/04/2016 GLC 84 02/16/2015 GLC 98 12/29/2013 GLC 108 08/12/2013 GLC 88 12/15/2011 GLC 88 12/15/2011 GLC 85 05/07/2004 GLC 85 05/07/2004 documented in this encounter Plan of Treatment Not on filedocumented as of this encounter Visit Diagnoses Diagnosis Benign essential hypertension - Primary Essential hypertension, benign Prediabetes Other abnormal glucose Moderate episode of recurrent major depr essive disorder (H) Acute bronchospasm documented in this encounter Additional Health Concerns Assessment Noted Time PHQ-9 Depression Total Score: 5 10/18/2020 8:15 AM CDT documented as of this encounter Care Teams Chemical Packager Relationship Specialty Start Date End Date Francia Nair MD PCP - General Internal Medicine 01/28/13 [address] [place], [place] [phone] Francia Nair MD Assigned PCP 01/07/13 [address] [facility] [address] [place], [place] [phone] documented as of this encounter
--- OUTSIDE RECORDS SUMMARY | 2022-01-30 11:35 | XMS_ITS | Encounter Summary ---
:1960 Author Organization [facility] Address [address] [place] [address] Care Team Providers Name Role Phone Francia Nair MD Primary Care Provider Francia Nair MD Unavailable Reason for Referral Diagnostic Imaging Mammo (Routine) - Closed Specialty Diagnoses / Procedures Referred By Contact Refer red To Contact Diagnoses Visit for screening mammogram Francia Nair MD Procedures MA Screen Bilateral w/Daniel [address] [place] [address] Referral ID Status Reason Start Date Expiration Date Visits Requ ested Visits Authorized [id number] Closed 07/19/2020 07/19/2021 1 1 Reason for Visit Diagnostic Imaging Mammo (Routine) - Closed Specialty Diagnoses / Procedures Referred By Contact Refer red To Contact Diagnoses Visit for screening mammogram Francia Nair MD Procedures MA Screen Bilateral w/Daniel [address] [place] [address] Referral ID Status Reason Start Date Expiration Date Visits Requ ested Visits Authorized [id number] Closed 07/19/2020 07/19/2021 1 1 Encounter Details Date Type Department Care Team Description 07/20/2020 Hospital Encounter [facility] Francia Nair MD Visit for screening [facility] [address] [place] [place] [address] [address] [place], [place] [phone] (Work) [phone] Social History Tobacco Use Types Packs/Day Years Used Date Former Smoker Cigarettes Quit: 05/10/19 Smokeless Tobacco: Never Used Comments: 06/28 PPD- [...] How often do you attend advent or spiritism Never 08/12/2021 services? Do you belong to [...] been in contact with No / Unsure 07/20/2020 1:46 PM CDT someone who was confirmed or suspected to have Coronavirus / COVID-19? documented as of this encounter Medications at Time of Discharge Medication Sig Dispensed Refills Start Date End Date albuterol (PROAIR Inhale 2 puffs 1 Inhaler 0 01/11/2019 HFA/PROVENTIL HFA/VENTOLIN into the lungs HFA) 108 (90 Base) MCG/ACT every 6 hours as inhaler needed for shortness of breath / dyspnea or wheezing FLUoxetine (PROZAC) 40 MG TAKE 1 CAPSULE BY 90 capsule 1 03/202101/03/2021 capsuleIndications: Mild MOUTH DAILY episode of recurrent major depressive disorder (H) lisdexamfetamine (VYVANSE) Take 1 capsule (20 30 capsule 0 1 05/01/2019 08/23/2020 20 MG capsuleIndications: mg) by mouth every Attention deficit morning disorder, unspecified hyperactivity presence lisdexamfetamine (VYVANSE) Take 1 capsule (30 30 capsule 0 1 08/23/2020 30 MG capsuleIndications: mg) by mouth every Attention deficit morning disorder, unspecified hyperactivity presence lisinopril-hydrochlorothia Take 1 tablet by 90 tablet 1 10/04/2020 zide (ZESTORETIC) 10-12.5 mouth daily MG tabletIndications: Essential hypertension VITAMIN D, Take by mouth as 0 10/19/19 21 CHOLECALCIFEROL, PO needed documented as of this encounter Plan of Treatment Not on filedocumented as of this encounter Procedures Procedure Name Priority Date/Time Associated Diagnosis Comme nts MA SCREENING Routine 07/20/2020 2:08 PM Visit for screening Re sults for this BILATERAL W/ DANIEL CDT mammogram procedure are in the results section. documented in this encounter Results MA Screen Bilateral w/Daniel (07/20/2020 2:08 PM CDT) Anatomical Region Laterality Modality Breast Bilateral Mammography Specimen (Source) Anatomical Location Collection Method / Collectio n Time Received Time / Laterality Volume Impressions 07/23/2020 7:36 AM CDT IMPRESSION: BI-RADS CATEGORY: 2 - Benign. RECOMMENDED FOLLOW-UP: Annual Mammograph y. Exam results letter mailed to patient. TOSHIA ROLON MD Narrative 07/23/2020 7:36 AM CDT SCREENING MAMMOGRAM, BILATERAL, DIGITAL w/CAD and TOMOSYNTHESIS - 07/20/2020 2:08 PM BREAST SYMPTOMS: Chronic left breast ten derness. No recent changes. COMPARISON: ??[facility]: 01/09/17. BREAST DENSITY: Scattered fibroglandular densities. COMMENTS: No findings of suspicion for m alignancy. ?? Postoperative changes of breast reduction surgery. Procedure Note Toshia Rolon MD - 07/23/2020F ormatting of this note might be different from the original. SCREENING MAMMOGRAM, BILATERAL, DIGITAL w/CAD and TOMOSYNTHESIS - 07/20/2020 2:08 PM BREAST SYMPTOMS: Chronic left breast ten derness. No recent changes. COMPARISON: [facility]: 01/09/17. BREAST DENSITY: Scattered fibroglandular densities. COMMENTS: No findings of suspicion for m alignancy. Postoperative changes of breast reduction surgery. IMPRESSION: BI-RADS CATEGORY: 2 - Benign . RECOMMENDED FOLLOW-UP: Annual Mammograph y. Exam results letter mailed to patient. TOSHIA ROLON MD Francia Nair MD IMG MAMMOGRAPHY ORDERABLES documented in this encounter Visit Diagnoses Diagnosis Visit for screening mammogram Other screening mammogram documented in this encounter Additional Health Concerns Assessment Noted Time PHQ-9 Depression Total Score: 7 03/05/2020 7:11 AM EDGE INKER UPPERS documented as of this encounter Care Teams Service Desk Analyst Relationship Specialty Start Date End Date Francia Nair MD PCP - General Internal Medicine 01/28/13 [address] [place] [address] Francia Nair MD Assigned PCP 01/07/13 [address] [place] [phone] documented as of this encounter
--- OUTSIDE RECORDS SUMMARY | 2022-01-30 11:35 | XMS_ITS | Encounter Summary ---
:1960 Author Organization [facility] Address [address] [place] [address] Care Team Providers Name Role Phone Francia Nair MD Primary Care Provider Francia Nair MD Unavailable Encounter Details Date Type Department Care Team Description 08/23/2020 Travel Social History Tobacco Use Types Packs/Day [...] 08/12/2021 relatives? How often do you attend mormon or presybeterian Never 08/12/2021 services? Do you belong to any clubs or organizations such as Yes 08/12/2021 mormon groups, unions, fraternal or athletic groups, or [...] been in contact with No / Unsure 08/23/2020 1:22 PM CDT someone who was confirmed or suspected to have Coronavirus / COVID-19? documented as of this encounter Plan of Treatment Not on filedocumented as of this encounter Visit Diagnoses Not on filedocumented in this encounter Additional Health Concerns Assessment Noted Time PHQ-9 Depression Total Score: 7 03/05/2020 7:11 AM SUPERVISOR ENGRAVING documented as of this encounter Care Teams Adjuster Piano Action Relationship Specialty Start Date End Date Francia Nair MD PCP - General Internal Medicine 01/28/13 [address] [place] [phone] Francia Nair MD Assigned PCP 01/07/13 [address] [place] [address] documented as of this encounter
--- OUTSIDE RECORDS SUMMARY | 2022-01-30 11:35 | XMS_ITS | Encounter Summary ---
:1960 Author Organization [facility] Address [address] [place] [address] Care Team Providers Name Role Phone Francia Nair MD Primary Care Provider Francia Nair MD Unavailable Encounter Details Date Type Department Care Team Description 07/20/2020 Travel Social History Tobacco Use Types Packs/Day [...] How often do you attend methodist or methodist Never 08/12/2021 services? Do you [...] Depression Total Score: 7 03/05/2020 7:11 AM TECHNICAL ASSISTANCE CONSULTANT documented as of this encounter Care Teams Nutrition Tech Relationship Specialty Start Date End Date Francia Nair MD PCP - General Internal Medicine 01/28/13 [address] [place] [address] Francia Nair MD Assigned PCP 01/07/13 [address] [place] [address] documented as of this encounter
--- OUTSIDE RECORDS SUMMARY | 2022-01-30 11:35 | XMS_ITS | Encounter Summary ---
:1960 Author Organization [facility] Address [address] [place] [address]. [place] [address] Care Team Providers Name Role Phone Francia Nair MD Primary Care Provider Francia Nair MD Unavailable Julieth Montes OD Unavailable [phone] Encounter Details Date Type Department Care Team Description 04/01/2021 [facility] Kenny Dahl, Encounter for screening Hospital for other viral diseases [address] [place] [address] [facility] [phone] [place] [address] (Wo rk) Social History Tobacco Use Types [...] 08/12/2021 relatives? How often do you attend episcopal or uatsdin Never 08/12/2021 services? Do you belong to any clubs or organizations such as Yes 08/12/2021 episcopal groups, unions, fraternal or athletic groups, or [...] place to sleep or slept in a penitentiary (including now)? Sex Assigned at Date Recorded Female 10/16/2020 6:22 PM CDT COVID-19 Exposure Response Date Recorded In the last month, have you been in contact with No / Unsure 04/05/2021 1:35 PM RESIDENT SERVICE COORDINATOR someone who was confirmed or suspected to have Coronavirus / COVID-19? documented as of this encounter Plan of Treatment Not on filedocumented as of this encounter Procedures Procedure Name Priority Date/Time Associated Diagnosis Comme nts COVID-19 VIRUS Routine 04/01/2021 10:59 AM Encounter for Resul ts for this (CORONAVIRUS) BY RESIDENT SERVICE COORDINATOR screening for other proc edure are in PCR viral diseases the results section. documented in this encounter Results Asymptomatic COVID-19 Virus (Coronavirus) by PCR Nose (04/01/2021 10:59 AM RESIDENT SERVICE COORDINATOR) [facility] Method Time Signature SARS CoV2 PCR Negative Negative, 04/02/2021 [facility] Testing sent to 2:59 PM RESIDENT SERVICE COORDINATOR LABORATORY reference lab. Results will be returned via unsolicited result Comment: NEGATIVE: SARS-CoV-2 (COVID-19) RNA not detected, presumed negative. Specimen Anatomical Collection Method Collection Time Receive d Time (Source) Location / / Volume Laterality Swab NASAL STRUCTURE / Non-blood 04/01/2021 10:59 2020 Unknown Collection / AM RESIDENT SERVICE COORDINATOR 10:59 AM RESIDENT SERVICE COORDINATOR Unknown Narrative [facility] - 04/02/2021 2:[address] Testing was performed using the Aptima SARS-CoV-2 Assay on the Thinglink Instrument System. Additional in formation about this [...] COVID-19. This test was validated by the [facility] Infectious Diseases Diagnostic Laboratory. This lab oratory is certified under the Clinical Laboratory Improvement Amen dments of 1988 (CLIA-88) as qualified to perform high complexity lab oratory testing. Kenny Dahl MD LAB - MICRO GENERAL ORDERABL ES Performing Organization Address City/State/ZIP Code Phon e Number [facility] [place] [id number] Diag. Lab [address] [facility], [address] [facility] Infectious [place], [place] [phone] Diseases Diagnostic [id number], [facility] Lab (IDDL) [address] [facility], Room [address]297 documented in this encounter Visit Diagnoses Diagnosis Encounter for screening for other viral diseases documented in this encounter Additional Health Concerns Assessment Noted Time PHQ-9 Depression Total Score: 5 10/18/2020 8:15 AM CDT documented as of this encounter Care Teams Superintendent Drilling Relationship Specialty Start Date End Date Francia Nair MD PCP - General Internal Medicine 01/28/13 [address] [place] [address] Francia Nair MD Assigned PCP 01/07/13 [address] [place] [address] Julieth Montes Assigned Surgical 03/17/21 LEANA Felton Provider [facility] [place] [id number] documented as of this encounter
--- OUTSIDE RECORDS SUMMARY | 2022-01-30 11:35 | XMS_ITS | Encounter Summary ---
:1960 Author Organization [facility] Address [address] [place] [address]. [place] [address] Care Team Providers Name Role Phone Francia Nair MD Primary Care Provider Francia Nair MD Unavailable Julieth Montes OD Unavailable [phone] Encounter Details Date Type Department Care Team Description 04/03/2021 Travel Social History Tobacco Use Types Packs/Day [...] How often do you attend advent or denominational Never 08/12/2021 services? Do you belong to [...] been in contact with No / Unsure 04/03/2021 3:16 PM INSPECTOR DIALS someone who was confirmed or suspected to have Coronavirus / COVID-19? documented as of this encounter Plan of Treatment Not on filedocumented as of this encounter Visit Diagnoses Not on filedocumented in this encounter Additional Health Concerns Assessment Noted Time PHQ-9 Depression Total Score: 5 10/18/2020 8:15 AM CDT documented as of this encounter Care Teams High Man Relationship Specialty Start Date End Date Francia Nair MD PCP - General Internal Medicine 01/28/13 [address] [place] [address] [id number] Francia Nair MD Assigned PCP 01/07/13 [address] [place] [address] [phone] Julieth Montes Assigned Surgical 03/17/21 LEANA Felton Provider [address] [place] [address] WERNER AVERY [phone] documented as of this encounter
--- OUTSIDE RECORDS SUMMARY | 2022-01-30 11:35 | XMS_ITS | Encounter Summary ---
:1960 Author Organization [facility] Address [address] [place] [address] Care Team Providers Name Role Phone Francia Nair MD Primary Care Provider Francia Nair MD Unavailable Reason for Visit Reason Comments Annual Eye Exam Encounter Details Date Type Department Care Team Description [facility] both eyes with astigmatism (Primary Dx); Clinic Jonna Felton OD Presbyopia; [address] Bilat eral incipient [place]acts[place] [facility] [place]neal epithelial and basement membrane dyst[place] [address] [place] [address] [place] [address] [phone] Social History Tobacco Use Types Packs/Day Years [...] 08/12/2021 relatives? How often do you attend adventism or yarsanism Never 08/12/2021 services? Do you belong to any clubs or organizations such as Yes 08/12/2021 adventism groups, unions, fraternal or athletic groups, or [...] / COVID-19? documented as of this encounter Patient Instructions Patient InstructionsSimon Julieth Felton, OD - 08/23/2020 1:30 PM CDT Some prescription change in both eyes Early cataracts not impacting vision too much as you are still 20/20 in both eyes but may be causingprescription change Meibomian gland dysfunction or Posterior Blepharitis, is characterized by inflammation along both the uppper and lower eyelid margins. A single row of these glands is present in each lid with openings along the lid margins. It is often found in association with skin conditions such as rosacea and seborrheic dermatitis. Symptoms include: ?Red eyes ?Gritty or burning sensation ?Excessive tearing ?Itchy eyelids ?Red, swollen eyelids ?Crusting or matting of eyelashes in the morning ?Light sensitivity ?Blurred vision It is important to keep cosmetics from blocking these oil glands. If blocked, they do not excrete oil into the tear film, which causes the tears to evaporate quickly. This may result in watery eyes. There is also an increase of bacterial growth when the tear film is unstable, leading to further ocular surface inflammation. Treatment: 1. Warm compresses for 5-10 minutes twice daily 2. Keep the eyelid margins clean by using a commercial eye scrub or mild baby shampoo on a washcloth1-2x daily 3. Use preservative free artificial tears 4-8x daily For warm compresses Moisten a washcloth with hot water, or microwave for 10 seconds, being careful to not get the clothtoo hot. Then put the washcloth onto your eyelids for 5 minutes. It will cool quickly so a rice pack or eyemask that can be heated and laid on top of the washcloth will help retain the heat. [place] 3 fatty acid supplements taken once to twice daily and artificial tears such as Soothe xp, Refresh optive , Retaine and systane balance are also an additional treatment to control inflammation and help soothe your eyes. You have a corneal basement membrane dystrophy. This is one of the most common types of corneal dystrophy and is usually asymptomatic. In Anterior Basement Membrane Dystrophy (ABMD) or Map Dot Dystrophy, the corneal epithelium does not function properly. The epithelium is a thin layer of surface skin covering the cornea. The next layer is the basement membrane which functions as a sticky anchor over which the epithelium grows. The basement membrane stabilizes the epithelium. There are generally two conditions which cause basement membrane dysfunction - one inherited, and one acquired by a deep corneal abrasion (scratch) which damages the basement membrane. This condition is common, treatable, and rarely leads to significant vision loss. documented in this encounter Progress Notes Julieth Montes, OD - 08/23/2020 1:30 PM CDT Chief Complaint Patient presents with ??? Annual Eye Exam Blur at near, blur at distance Blurry vision doesn't seem typical. On computer all day - eye strain. She thinks maybe she's had the start of cataracts. Would like this evaluated today. Last Eye Exam: 2019 Dilated Previously: Yes. Signs and symptoms of dilation were discussed. Patient consents to dilationtoday. What are you currently using to see? Glasses - 1 year old Distance Vision Acuity: Noticed gradual change in both eyes Near Vision Acuity: Not satisfied Eye Comfort: watery Do you use eye drops? : No Mindi Gracia CPO Medical, surgical and family histories reviewed and updated 08/23/2020. OBJECTIVE: See Ophthalmology exam ASSESSMENT: ICD-10-CM 1. Myopia of both eyes with astigmatism H52.13 H52.203 2. Presbyopia H52.4 3. Bilateral incipient cataracts H26.9 4. 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 PLAN: Not a lasik candidate Warm compresses/ artificial tears Julieth Montes OD documented in this encounter Plan of Treatment Not on filedocumented as of this encounter Procedures Procedure Name Priority Date/Time Associated Diagnosis Comme nts PA REFRACTION Routine 08/23/2020 2:00 PM Myopia of both eyes CDT with astigmatism EYE EXAM Routine 08/23/2020 2:00 PM Myopia of both eyes (SIMPLE-NONBILLABLE) CDT with astigm atism Bilateral incipient cataracts documented in this encounter Visit Diagnoses Diagnosis Myopia of both eyes with astigmatism - P rimary Presbyopia Bilateral incipient cataracts Unspecified cataract Corneal epithelial and basement membrane dystrophy Other anterior corneal dystrophies documented in this encounter Additional Health Concerns Assessment Noted Time PHQ-9 Depression Total Score: 7 03/05/2020 7:11 AM TRAFFIC 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
--- OUTSIDE RECORDS SUMMARY | 2022-01-30 11:36 | XMS_ITS | Encounter Summary ---
:1960 Author Organization [facility] Address [address] [place] [address] Care Team Providers Name Role Phone Francia Nair MD Primary Care Provider Francia Nair MD Unavailable Reason for Visit Reason Onset Date Comments Referral 06/13/2020 Mammogram and colono scopy Encounter Details Date Type Department Care Team Description 06/13/2020 Telephone [facility] Francia Nair MD Referral (Mammogram Clinic [place] [address] and colonoscopy) [address] [place] [address] [place] [address] [place], [place] [phone] (Wo rk) [address] [phone] Social History Tobacco Use Types Packs/Day Years [...] 08/12/2021 relatives? How often do you attend tenriism or orthodox Never 08/12/2021 services? Do you belong to any clubs or organizations such as Yes 08/12/2021 tenriism groups, unions, fraternal or athletic groups, [...] encounter Miscellaneous Notes Telephone Encounter - Sussy Herron RN - 06/14/2020 11:54 AM CST Call to patient and informed of providers message. Patient agrees with plan. OYEE'S REPRESENTATIVE Telephone Encounter - Francia Nair MD - 06/14/2020 10:35 AM CST A referral is not necessary for the mammogram. She can just schedule. She had very tiny polyps and the GI doctor said repeat 5 years for the colonoscopy, so that is not due until October. I would not recommend doing early during a pandemic. If she wants to get it on the schedule now for October, I can order, otherwise she will be notified by letter from GI about a month before it is due. OYEE'S REPRESENTATIVE Telephone Encounter - Sussy Herron RN - 06/14/2020 10:32 AM CST Please see message below, patient is due for mammogram, colonoscopy will be due 11/04/20. Please advise, Thank you OYEE'S REPRESENTATIVE Telephone Encounter - Aditi Wyatt - 06/13/2020 2:04 PM CST Patient called to request a referral for a mammogram and a colonoscopy. She thinks she is due for a colonoscopy now, not every 5 years. Please advise when referrals are placed. 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
--- OUTSIDE RECORDS SUMMARY | 2022-01-30 11:36 | XMS_ITS | Encounter Summary ---
:1960 Author Organization [facility] Address [address] [place] [address] Care Team Providers Name Role Phone Francia Nair MD Primary Care Provider Francia Nair MD Unavailable Reason for Visit Reason Comments Medication Refill FLUoxetine (PROZAC) 40 MG Encounter Details Date Type Department Care Team Description 06/13/2019 Refill [facility] Francia Nair MD Medication Refill Clinic [place] [address] (FLUoxetine (PROZAC) 40 [address] [place] [address] MG ) [place] [address] [place], [place] [phone] (Wo rk) [address] [phone] Social History Tobacco Use Types Packs/Day Years [...] 08/12/2021 relatives? How often do you attend baptism or sikhism Never 08/12/2021 services? Do you belong to any clubs or organizations such as Yes 08/12/2021 baptism groups, unions, fraternal or athletic groups, or [...] Telephone Encounter - Sussy Finley RN - 06/14/2019 2:48 PM CST PHQ-9 score: PHQ 01/23/2019 PHQ-9 Total Score 3 Q9: Thoughts of better off /self-harm past 2 weeks Not at all Medication is being filled for 1 time refill only due to: pt due for f/u depression appt in May 2019. Touchtalent message sent. FACTURING ENGINEER ASSEMBLY Telephone Encounter - Nazia Marquez - 06/14/2019 8:17 AM CST Requested Prescriptions Pending Prescriptions Disp Refills ??? FLUoxetine (PROZAC) 40 MG capsule [Pharmacy Med Name: FLUOXETINE 40MG Last Written Prescription Date: 03/17/2019 Last Fill Quantity: 90, # refills: 0 Last office visit: 01/14/2019 with prescribing provider: Future Office Visit: CAPSULES] 90 capsule 0 Sig: TAKE 1 CAPSULE BY MOUTH DAILY SSRIs Protocol Passed - 06/13/2019 5:27 AM Passed - PHQ-9 score less than 5 in past 6 months Please review last PHQ-9 score. Passed - Medication is active on med list Passed - Patient is age 18 or older Passed - No active on record Passed - No positive test in last 12 months Passed - Recent (6 mo) or future (30 days) visit within the authorizing provider's specialty Patient had office visit in the last 6 months or has a visit in the next 30 days with authorizing provider or within the authorizing provider's specialty. See Patient Info tab in inbasket, or Choose Columns in Meds & Orders section of the refill encounter. 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
--- OUTSIDE RECORDS SUMMARY | 2022-01-30 11:36 | XMS_ITS | Encounter Summary ---
:1960 Author Organization [facility] Address [address] [place] [address]. [place] [address] Care Team Providers Name Role Phone Francia Nair MD Primary Care Provider Francia Nair MD Unavailable Reason for Referral Consultation (Routine) - Closed Specialty Diagnoses / Procedures Referred By Contact Refer red To Contact Diagnoses Hoarseness Francia Nair MD [facility] [address] [place] [address] [place] [address] Referral ID Status Reason Start Date Expiration Date Visits Requ ested Visits Authorized [id number] Closed 04/14/2019 04/13/2020 1 1 [facility] Reason for Visit Reason Onset Date Comments Referral 04/13/2019 ENT Encounter Details Date Type Department Care Team Description 04/13/2019 Telephone [facility] Kin Nair MD Referral (ENT) [place] [address] [place] [facility] [place] [address] [place] [address] [phone] Social History Tobacco Use Types Packs/Day Years [...] 08/12/2021 relatives? How often do you attend yarsani or hoahaoism Never 08/12/2021 services? Do you belong to any clubs or organizations such as Yes 08/12/2021 yarsani groups, unions, fraternal or athletic groups, or [...] this encounter Miscellaneous Notes Telephone Encounter - Gale Hammond RN - 04/14/2019 1:37 PM CST Call to patient. Advised. [facility] Telephone Encounter - Francia Nair MD - 04/14/2019 12:39 PM CST Referral done, you can give her the number to call: [facility] Telephone Encounter - Penny Caputo - 04/13/2019 12:42 PM CST Patient is calling to see if Dr Nair will place a ENT referral because she has a hoarse voice that has been going on for about three months. ER [facility]ERMAN documented in this encounter Plan of Treatment Scheduled Referrals Name Type Priority Associated Diagnoses Order S chedule OTOLARYNGOLOGY REFERRAL Referral Routine Hoarseness Orde red: 04/14/2019 documented as of this encounter Visit Diagnoses Diagnosis Hoarseness - Primary Dysphonia documented in this encounter Additional Health Concerns Assessment Noted Time PHQ-9 Depression Total Score: 3 01/23/2019 9:19 PM CDT documented as of this encounter Care Teams Director Of Scientific Research Relationship Specialty Start Date End Date Francia Nair MD PCP - General Internal Medicine 01/28/13 [address] [place] [address] Francia Nair MD Assigned PCP 01/07/13 [address] [place] [address] documented as of this encounter
--- OUTSIDE RECORDS SUMMARY | 2022-01-30 11:36 | XMS_ITS | Encounter Summary ---
:1960 Author Organization [facility] Address [address] [place] [address] Care Team Providers Name Role Phone Francia Nair MD Primary Care Provider Francia Nair MD Unavailable Encounter Details Date Type Department Care Team Description 09/13/2019 Travel Social History Tobacco Use Types Packs/Day [...] 08/12/2021 relatives? How often do you attend restorationist or advent Never 08/12/2021 services? Do you belong to any clubs or organizations such as Yes 08/12/2021 restorationist groups, unions, fraternal or athletic groups, or [...] been in contact with No / Unsure 09/13/2019 2:27 PM CDT someone who was confirmed or suspected to have Coronavirus / COVID-19? documented as of this encounter Plan of Treatment Not on filedocumented as of this encounter Visit Diagnoses Not on filedocumented in this encounter Additional Health Concerns Assessment Noted Time PHQ-9 Depression Total Score: 10 09/13/2019 2:55 PM CD T documented as of this encounter Care Teams Engraving Press Operator Relationship Specialty Start Date End Date Francia Nair MD PCP - General Internal Medicine 01/28/13 [address] [place], [place] [phone] Francia Nair MD Assigned PCP 01/07/13 [address] [place], [place] [phone] documented as of this encounter
--- OUTSIDE RECORDS SUMMARY | 2022-01-30 11:36 | XMS_ITS | Encounter Summary ---
:1960 Author Organization [facility] Address [address] [place] [address] Care Team Providers Name Role Phone Franica Nair MD Primary Care Provider Francia Nair MD Unavailable Reason for Visit Reason Onset Date Comments Refill Request 09/21/2019 vyvanatoliye Encounter Details Date Type Department Care Team Description 09/21/2019 MyC Refill [facility], Refill Request Clinic Shiloh Nga Encinas MD (vyvanse) [address] [place], [place] [address] [phone] Social History Tobacco Use Types Packs/Day Years [...] 08/12/2021 relatives? How often do you attend uatsdin or christian Never 08/12/2021 services? Do you belong to any clubs or organizations such as Yes 08/12/2021 uatsdin groups, unions, fraternal or athletic groups, or [...] encounter Miscellaneous Notes Telephone Encounter - Drea Collier, RN - 09/23/2019 5:54 PM CDT Routing refill request to provider for review/approval because: Drug not on the [facility] refill protocol documented in this encounter Plan of Treatment Not on filedocumented as of this encounter Visit Diagnoses Diagnosis Attention deficit disorder, unspecified hyperactivity presence documented in this encounter Additional Health Concerns Assessment Noted Time PHQ-9 Depression Total Score: 10 09/13/2019 2:55 PM CD T documented as of this encounter Care Teams Cutting Pressman Relationship Specialty Start Date End Date Francia Nair MD PCP - General Internal Medicine 01/28/13 [address] [place] [phone] Francia Nair MD Assigned PCP 01/07/13 [address] [place] [phone] documented as of this encounter
--- OUTSIDE RECORDS SUMMARY | 2022-01-30 11:36 | XMS_ITS | Encounter Summary ---
:1960 Author Organization [facility] Address [address] [place] [address] Care Team Providers Name Role Phone Francia Nair MD Primary Care Provider Francia Nair MD Unavailable Encounter Details Date Type Department Care Team Description 03/01/2020 Travel Social History Tobacco Use Types Packs/Day [...] How often do you attend restorationism or jewish Never 08/12/2021 services? 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 documented as of this encounter Plan of Treatment Not on filedocumented as of this encounter Visit Diagnoses Not on filedocumented in this encounter Additional Health Concerns Assessment Noted Time PHQ-9 Depression Total Score: 7 03/05/2020 7:11 AM BUILDING STONECUTTER documented as of this encounter Care Teams Algebra Tutor Relationship Specialty Start Date End Date Francia Nair MD PCP - General Internal Medicine 01/28/13 [address] [place], [place] [address] Francia Nair MD Assigned PCP 01/07/13 [address] [place] [address] documented as of this encounter
--- OUTSIDE RECORDS SUMMARY | 2022-01-30 11:36 | XMS_ITS | Encounter Summary ---
:1960 Author Organization [facility] Address [address] [place] [id number] Care Team Providers Name Role Phone Francia Nair MD Primary Care Provider Francia Nair MD Unavailable Reason for Visit Reason Comments Ear Problem Ear pain in left ear, itchin g and radiating down into lower jaw Encounter Details Date Type Department Care Team Description 09/13/2019 Office Visit [facility] Pathmanathan, Ear ache (Primary Dx); Clinic Brian Martinez MD Essential hypertension [address] [place] [address] Social History Tobacco Use Types Packs/Day [...] 08/12/2021 relatives? How often do you attend jain or baptist Never 08/12/2021 services? Do you belong to any clubs or organizations such as Yes 08/12/2021 jain groups, unions, fraternal or athletic groups, or [...] Sign Reading Time Taken Comments Blood Pressure 147/91 09/13/2019 2:51 PM CDT Pulse 99 09/13/2019 2:51 PM CDT Temperature 37.1 ??C (98.8 ??F) 09/13/2019 2:51 PM CDT Respiratory Rate 16 09/13/2019 2:51 PM CDT Oxygen Saturation 99% 09/13/2019 2:51 PM CDT Inhaled Oxygen Concentration - - Weight 92.3 kg (203 lb 6.4 oz) 09/13/2019 2:51 PM CDT Height 165.1 cm (5' 5) 09/13/2019 2:51 PM CDT Body Mass Index 33.85 09/13/2019 2:51 PM CDT documented in this encounter Patient Instructions Patient InstructionsMichelle Pascual MD - 09/13/2019 2:40 PM CDT Images from the original note were not included. Patient Education Earache, No Infection (Adult) Earaches can happen without an infection. This occurs when air and fluid build up behind the eardrumcausing a feeling of fullness and discomfort and reduced hearing. This is called otitis media with effusion (OME) or serous otitis media. It means there is fluid in the middle ear. It is not the same as acute otitis media, which is typically from infection. OME can happen when you have a cold if congestion blocks the passage that drains the middle ear. This passage is called the eustachian tube. OME may also occur with nasal allergies or after a bacterialmiddle ear infection. The pain or discomfort may come and go. You may hear clicking or popping sounds when you chew or swallow. You may feel that your balance is off. Or you may hear ringing in the ear. It often takes from several weeks up to 3 months for the fluid to clear on its own. Oral pain relievers and ear drops help if there is pain. Decongestants and antihistamines sometimes help. Antibioticsdon't help since there is no infection. Your doctor may prescribe a nasal spray to help reduce swelling in the nose and eustachian tube. This can allow the ear to drain. If your OME doesn't improve after 3 months, surgery may be used to drain the fluid and insert a small tube in the eardrum to allow continued drainage. Because the middle ear fluid can become infected, it is important to watch for signs of an ear infection which may develop later. These signs include increased ear pain, fever, or drainage from the ear. Home care The following guidelines will help you care for yourself at home: ?? You may use ubwk-pqu-icqblio medicine as directed to control pain, unless another medicine was prescribed. If you have chronic liver or kidney disease or ever had a stomach ulcer or GI bleeding, talk with your doctor before using these medicines. Aspirin should never be used in anyone under 18 years of age who is ill with a fever. It may cause severe liver damage. ?? You may use azni-gkg-ibkretu decongestants such as phenylephrine or pseudoephedrine. But they arenot always helpful. Don't use nasal spray decongestants more than 3 days. Longer use can make congestion worse. Prescription nasal sprays from your doctor don't typically have those restrictions. ?? Antihistamines may help if you are also having allergy symptoms. ?? You may use medicines such as guaifenesin to thin mucus and promote drainage. Follow-up care Follow up with your healthcare provider or as advised if you are not feeling better after 3 days. When to seek medical advice Call your healthcare provider right away if any of the following occur: ?? Your ear pain gets worse or does not start to improve? Fever of 100.4??F (38??C) or higher, or as directed by your healthcare provider ?? Fluid or blood draining from the ear ?? Headache or sinus pain ?? Stiff neck ?? Unusual drowsiness or confusion Date Last Reviewed: 01/26/2016 ?? [id number] [employer]. [address] [place] [address], [place] [address]. All rights reserved. This information is not intended as a substitute for professional medical care. Always follow your healthcare professional's instructions. documented in this encounter Progress Notes Michelle Pascual MD - 09/13/2019 2:40 PM CDT Subjective Robbie Miller is a 59 year old female who presents to clinic today for the following health issues: HPI Patient complains of 3-day history of ear pain. Patient use hearing aids and has ear pain in the left ear. Difficulty sleeping on that side. Also complains of pressure sensation in the ear. Denies any drainage. Denies any fever, chills. Denies postnasal drainage or runny nose. Denies cough or congestion. Patient also has had a feeling and has been worse with ear pain. Patient is a known hypertensive and takes lisinopril hydrochlorothiazide medication. Does not have ablood pressure monitor at home. Today her blood pressure was mildly elevated. Denies chest pain, shortness breath, palpitation. Complains of edema in the legs. Patient Active Problem List Diagnosis ??? Tobacco use disorder ??? Essential hypertension ??? Obesity ??? ADD (attention deficit disorder) ??? CARDIOVASCULAR SCREENING; LDL GOAL LESS THAN 160 ??? Major depression, recurrent (H) ??? Controlled substance agreement signed ??? Gastroesophageal reflux disease with esophagitis ??? Obesity (BMI 35.0-39.9) with comorbidity (H) Past Surgical History: Procedure Laterality Date ??? C NONSPECIFIC PROCEDURE SBO w/ 3 resected ??? COLONOSCOPY N/A 11/05/2015 Procedure: COMBINED COLONOSCOPY, SINGLE OR MULTIPLE BIOPSY/POLYPECTOMY BY BIOPSY; Surgeon: Vic Helm MD, ; Location: [facility] ??? HYSTERECTOMY, ALESSANDRO has ovaries Social History Tobacco Use ??? Smoking status: Former Smoker Types: Cigarettes Last attempt to quit: 05/10/2018 Years since quittin.3 ??? Smokeless tobacco: Never Used ??? Tobacco comment: 3/4 PPD- Substance Use Topics ??? Alcohol use: Yes Comment: ocassional 3-4 drinks per month Family History Problem Relation Age of Onset ??? Heart Disease Father CHF ??? Breast Cancer Maternal Grandmother ??? Diabetes Maternal Grandmother Type 1 ??? Heart Failure Mother ??? Diabetes Paternal Aunt ??? Colon Cancer No family hx of Current Outpatient Medications Medication Sig Dispense Refill ??? FLUoxetine (PROZAC) 40 MG capsule Take 1 capsule (40 mg) by mouth daily 90 capsule 1 ??? lisdexamfetamine (VYVANSE) 30 MG capsule Take 1 capsule (30 mg) by mouth every morning 30 capsule 0 ??? lisinopril-hydrochlorothiazide (ZESTORETIC) 10-12.5 MG tablet Take 1 tablet by mouth daily 90 tablet 1 ??? VITAMIN D, CHOLECALCIFEROL, PO Take by mouth as needed ??? albuterol (PROAIR HFA/PROVENTIL HFA/VENTOLIN HFA) 108 (90 Base) MCG/ACT inhaler Inhale 2 puffs into the lungs every 6 hours as needed for shortness of breath / dyspnea or wheezing (Patient not taking: Reported on 07/26/2019) 1 Inhaler 0 Allergies Allergen Reactions ??? No Known Drug Allergies ??? Varenicline PN: LW Reaction: nightmare Reviewed and updated as needed this visit by Provider Problems Review of Systems Constitutional: Negative for fever. HENT: Positive for ear pain and hearing loss. Negative for ear discharge and postnasal drip. Respiratory: Negative for shortness of breath. Cardiovascular: Negative for chest pain and palpitations. Neurological: Positive for headaches. Objective BP (!) 147/91 (BP Location: Right arm, Patient Position: Sitting, Cuff Size: Adult Regular) Pulse 99 Temp 98.8 ??F (37.1 ??C) (Oral) Resp 16 Ht 1.651 m (5' 5) Wt 92.3 kg (203 lb 6.4 oz) SpO2 99% BMI 33.85 kg/m?? Body mass index is 33.85 kg/m??. Physical Exam Vitals signs reviewed. HENT: Head: Normocephalic and atraumatic. Right Ear: Tympanic membrane, ear canal and external ear normal. There is no impacted cerumen. Left Ear: Tympanic membrane, ear canal and external ear normal. There is no impacted cerumen. Cardiovascular: Rate and Rhythm: Normal rate and regular rhythm. Heart sounds: No murmur. Pulmonary: Effort: Pulmonary effort is normal. Breath sounds: Normal breath sounds. No wheezing. Neurological: Mental Status: She is alert. Assessment & Plan Robbie was seen today for ear problem. Diagnoses and all orders for this visit: Ear ache Essential hypertension Her ear examination was completely normal. Patient was reassured that she does not have any ear infection or impacted backs. Differentials were discussed about eustachian tube dysfunction, but she is hesitant to try antihistamine due to her QTC prolongation. Explained to her that her hearing aids could be causing that and advised her to check with store warehouse associate. For now she can take Tylenol as needed for pain. If her symptoms are not getting better we will consider ENT referral. Also advised her to monitor her blood pressure. Patient is thinking about buying a blood pressure monitor so she can start checking it at home. Michelle Pascual MD [facility] documented in this encounter Plan of Treatment Not on filedocumented as of this encounter Visit Diagnoses Diagnosis Ear ache - Primary Essential hypertension Unspecified essential hypertension documented in this encounter Additional Health Concerns Assessment Noted Time PHQ-9 Depression Total Score: 10 09/13/2019 2:55 PM CD T documented as of this encounter Care Teams Public Affairs Director Relationship Specialty Start Date End Date Francia Nair MD PCP - General Internal Medicine 01/28/13 [address] [place] [address] Francia Nair MD Assigned PCP 01/07/13 [address] [place] [address] documented as of this encounter
--- OUTSIDE RECORDS SUMMARY | 2022-01-30 11:36 | XMS_ITS | Encounter Summary ---
:1960 Author Organization [facility] Address [address] [place] [id number] Care Team Providers Name Role Phone Francia Nair MD Primary Care Provider Francia Nair MD Unavailable Reason for Visit Reason Comments Physical Fasting. Encounter Details Date Type Department Care Team Description 03/01/2020 Office Visit [facility] Francia Nair MD Encounter for routine adult health exami nation without abnormal findings (Primary Dx); [facility] [address] Morbid obesity (H); [address] Moderate episode of recurrent major depr essive disorder (H); [place], [place] Essential hypertension; [place] [address] Prolonged QT interval; [id number] Hyperlipidemia LDL goal <130 ; Attention deficit disorder, unspecified hyperactivity presence; Blood glu cose abnormal; Anxiety Social History Tobacco Use Types Packs/Day Years [...] How often do you attend mormon or hoahaoism Never 08/12/2021 services? Do you [...] with No / Unsure 03/01/2020 9:00 AM TRAVEL MONEY ADVISOR someone who was confirmed or suspected to have Coronavirus / COVID-19? documented as of this encounter Last Filed Vital Signs Vital Sign Reading Time Taken Comments Blood Pressure 140/91 03/01/2020 9:39 AM TRAVEL MONEY ADVISOR Pulse 97 03/01/2020 9:39 AM TRAVEL MONEY ADVISOR Temperature 36.6 ??C (97.8 ??F) 03/01/2020 9:39 AM TRAVEL MONEY ADVISOR Respiratory Rate 18 03/01/2020 9:39 AM TRAVEL MONEY ADVISOR Oxygen Saturation 98% 03/01/2020 9:39 AM TRAVEL MONEY ADVISOR Inhaled Oxygen Concentration - - Weight 90.3 kg (199 lb 1.6 oz) 03/01/2020 9:39 AM TRAVEL MONEY ADVISOR Height 163.8 cm (5' 4.5) 03/01/2020 9:39 AM TRAVEL MONEY ADVISOR Body Mass Index 33.65 03/01/2020 9:39 AM TRAVEL MONEY ADVISOR documented in this encounter Patient Instructions Patient InstructionsFrancia Nair MD - 03/01/2020 9:00 AM CST Shingrix is the new shingles vaccine. Call insurance to find out if covered, whether covered at a pharmacy. The work book for anxiety is Mind over Mood by Joseph Ocasio Consider apps on the phone like [place] or Calm EL MONEY ADVISOR documented in this encounter Progress Notes Francia Nair MD - 03/01/2020 9:00 AM CST SUBJECTIVE: CC: Robbie Miller is an 60 year old woman who presents for preventive health visit. Patient has been advised of split billing requirements and indicates understanding: Yes Healthy Habits: Getting at least 3 servings of Calcium per day: NO Bi-annual eye exam: Yes Dental care twice a year: Yes Sleep apnea or symptoms of sleep apnea: Excessive snoring Diet: Regular (no restrictions) Frequency of exercise: 1 day/week Duration of exercise: 15-30 minutes Taking medications regularly: Yes Medication side effects: Not applicable PHQ-2 Total Score: 2 Additional concerns today: Yes Ability to successfully perform activities of daily living: Yes, no assistance needed Home safety: none identified Hearing impairment: None Problems: 1. Hypertension: She reports that using wrist class of her blood pressures been running 130-145/90. This has just been checked for couple weeks. No symptoms associated with this. 2. Major depression: She reports some moderate symptoms and some anxiety. She is very concerned regarding prolonged QT so does not want to change any medication. 3. Prolonged QT syndrome: This was thought to be due to her medications. The continuity tester felt it was acceptable to continue her current medicines but be careful about adding anything. 4. Morbid obesity: She has lost some weight. 5. Abnormal glucose: She is concerned about checking this. 6. ADD: She is stable on her medication, no concerns on MESH CUTTER, she is comfortable with the dose. Today's PHQ-2 Score: PHQ-2 (??1999 Pfizer) 02/29/2020 Q1: Little interest or pleasure [...] day or >7 drinks per week? No Alcohol Use 02/29/2020 Prescreen: >3 drinks/day or >7 drinks/week? No Prescreen: >3 drinks/day or >7 drinks/week? - No flowsheet data found. Reviewed orders with patient. Reviewed health maintenance and updated orders accordingly - Yes Mammogram Screening: Patient over age 50, mutual decision to screen reflected in health maintenance. Pertinent mammograms are reviewed under the imaging tab. History of abnormal Pap smear: Status post benign hysterectomy. Health Maintenance and Surgical History updated. Reviewed and updated as needed this visit by clinical staff Patient Active Problem List Diagnosis ??? Tobacco use disorder ??? Essential hypertension ??? Obesity ??? ADD (attention deficit disorder) ??? Major depression, recurrent (H) ??? Controlled substance agreement signed. MESH CUTTER-ok- 01/27/20 ??? Gastroesophageal reflux disease with esophagitis ??? Obesity (BMI 35.0-39.9) with comorbidity (H) ??? Blood glucose abnormal ? ? Hyperlipidemia LDL goal <130 ??? Prolonged QT interval Current Outpatient Medications Medication Sig Dispense Refill ??? FLUoxetine (PROZAC) 40 MG capsule Take 1 capsule (40 mg) by mouth daily 90 capsule 1 ??? lisdexamfetamine (VYVANSE) 20 MG capsule Take 1 capsule (20 mg) by mouth every morning 30 capsule 0 ??? lisdexamfetamine (VYVANSE) 30 MG capsule Take [...] taking: Reported on 07/26/2019) 1 Inhaler 0 ??? hydrochlorothiazide (HYDRODIURIL) 12.5 MG tablet Take 1 tablet (12.5 mg) by mouth daily (Patientnot taking: Reported on 03/01/2020) 90 tablet 0 ??? lisinopril (ZESTRIL) 10 MG tablet Take 1 tablet (10 mg) by mouth daily (Patient not taking: Reported on 03/01/2020) 90 tablet 0 Reviewed and updated as needed this visit by Provider Review of Systems Eyes: Positive for visual disturbance. Respiratory: Positive for shortness of breath. Psychiatric/Behavioral: The patient is nervous/anxious. General: No fever or chills ENT: Negative Cardiovascular: Negative Abdominal: Negative : Negative Musculoskeletal: Negative Neurologic: Negative OBJECTIVE: Physical Exam Patient alert, in no acute distress BP (!) 140/91 (BP Location: Right arm, Patient Position: Sitting, Cuff Size: Adult Regular) Pulse 97 Temp 97.8 ??F (36.6 ??C) (Oral) Resp 18 Ht 1.638 m (5' 4.5) Wt 90.3 kg (199 lb 1.6 oz) SpO2 98% BMI 33.65 kg/m?? HEENT: extraocular movements are intact, pupils equal [...] tenderness and No galactorrhea REFLEXES: 2+ throughout PHQ 01/23/2019 09/13/2019 03/05/2020 PHQ-9 Total Score 3 10 7 Q9: Thoughts of better off /self-harm past 2 weeks Not at all Not at all Not at all MORENA-7 SCORE 08/10/2014 07/25/2016 03/05/2020 Total Score 6 - - Total Score - 5 8 EKG: QTc: 0.445, improved ASSESSMENT/PLAN: 1. Encounter for routine adult health examination without abnormal findings Up to date 2. Morbid obesity (H) Some success with weight loss, continue working on this 3. Moderate episode of recurrent major depressive disorder (H) Some mild increase in symptoms but not enough to change medication 4. Essential hypertension Blood pressures are high at home, elevated here. Recommend nurse blood pressure check in several weeks and bring her home machine with her. - Basic metabolic panel (Ca, Cl, CO2, Creat, Gluc, K, Na, BUN) - Albumin Random Urine Quantitative with Creat Ratio 5. Prolonged QT interval Recheck, reassured that this is likely benign, continue medications - EKG 12-lead complete w/read - Clinics 6. Hyperlipidemia LDL goal <130 Recheck lab - Lipid panel reflex to direct LDL Fasting 7. Attention deficit disorder, unspecified hyperactivity presence Stable on her current medication, continue - lisdexamfetamine (VYVANSE) 20 MG capsule; Take 1 capsule (20 mg) by mouth every morning Dispense: 30 capsule; Refill: 0 8. Blood glucose abnormal Recheck sugar - Basic metabolic panel (Ca, Cl, CO2, Creat, Gluc, K, Na, BUN) - Hemoglobin A1c 9. Anxiety Some mild increase, consider BuSpar but will check to see if it affects QT first, she does not want to change anything right now Patient has been advised of split billing requirements and indicates understanding: Yes COUNSELING: Reviewed preventive health counseling, as reflected in patient instructions Estimated body mass index is 33.65 kg/m?? as calculated from the following: Height as of this encounter: 1.638 m (5' 4.5). Weight as of this encounter: 90.3 kg (199 lb 1.6 oz). Weight management plan: Discussed healthy diet and exercise guidelines She reports that she quit smoking about 21 months ago. Her smoking use included cigarettes. She has never used smokeless tobacco. Counseling Resources: ATP IV Guidelines Pooled Cohorts Equation Calculator Breast Cancer Risk Calculator BRCA-Related Cancer Risk Assessment: FHS-7 Tool FRAX Risk Assessment ICSI Preventive Guidelines Dietary Guidelines for Americans, 2009 USDA's MyPlate ASA Prophylaxis Lung CA Screening Francia Nair MD [facility] EL MONEY ADVISOR documented in this encounter Nursing Notes Noé Florian MA - 03/01/2020 9:00 AM CST BP (!) 140/91 (BP Location: Right arm, Patient Position: Sitting, Cuff Size: Adult Regular) Pulse 97 Temp 97.8 ??F (36.6 ??C) (Oral) Resp 18 Ht 1.638 m (5' 4.5) Wt 90.3 kg (199 lb 1.6 oz) SpO2 98% BMI 33.65 kg/m?? EL MONEY ADVISOR documented in this encounter Plan of Treatment Not on filedocumented as of this encounter Procedures Procedure Name Priority Date/Time Associated Diagnosis Comme nts EKG 12-LEAD COMPLETE Routine 03/01/2020 11:59 Prolonged QT int erval Results for this W/READ - CLINICS AM TRAVEL MONEY ADVISOR procedure a re in the results section. ALBUMIN RANDOM URINE Routine 03/01/2020 10:39 Essential hypert ension Results for this QUANTITATIVE AM TRAVEL MONEY ADVISOR procedure are i n the results section. LIPID REFLEX TO Routine 03/01/2020 10:39 Hyperlipidemia LDL Re sults for this DIRECT LDL PANEL AM TRAVEL MONEY ADVISOR goal <130 procedure a re in the results section. HEMOGLOBIN A1C Routine 03/01/2020 10:39 Blood glucose abnormal Results for this AM TRAVEL MONEY ADVISOR procedure are i n the results section. BASIC METABOLIC Routine 03/01/2020 10:39 Essential hyper tension Results for this PANEL AM TRAVEL MONEY ADVISOR Blood glucose abnormal proce dure are in the results section. documented in this encounter Results EKG 12-lead complete w/read - Clinics (03/01/2020 11:59 AM TRAVEL MONEY ADVISOR) Narrative This result has an attachment that is no t available. Francia Nair MD ECG ORDERABLES (ABNORMAL) Hemoglobin A1c (03/01/2020 10:39 AM TRAVEL MONEY ADVISOR) Analysis Performed At Patho logist Time Signature Hemoglobin A1C 6.4 (H) 0 - 5.6 % 03/01/2020 [place] 10:58 AM TRAVEL MONEY ADVISOR [facility] Comment: Normal <5.7% Prediabetes 5.7-6.4% ??Diab etes 6.5% or higher - adopted from ADA consensus guidelines. Specimen Anatomical Collection Method Collection Time Receive d Time (Source) Location / / Volume Laterality Blood specimen 03/01/2020 10:39 0 (specimen) AM TRAVEL MONEY ADVISOR 10:40 AM TRAVEL MONEY ADVISOR Francia Nair MD LAB - BLOOD ORDERABLES Performing Organization Address City/State/ZIP Code Phon e Number [facility] [address] [place], [place] [address] [address] Albumin Random Urine Quantitative with Creat Ratio (03/01/2020 10:39 AM TRAVEL MONEY ADVISOR) P athologist Signature Creatinine 144 mg/dL 03/02/2020 [place] Urine 12:01 PM TRAVEL MONEY ADVISOR [facility] Albumin Urine 7 mg/L 03/02/2020 [place] mg/L 12:05 PM [facility] Albumin Urine 5.17 0 - 25 03/02/2020 [place] mg/g Cr mg/g Cr 12:05 PM [facility] Specimen Anatomical Collection Method Collection Time Receive d Time (Source) Location / / Volume Laterality Urine specimen 03/01/2020 10:39 0 (specimen) AM TRAVEL MONEY ADVISOR 10:40 AM TRAVEL MONEY ADVISOR Francia Nair MD LAB - URINE ORDERABLES Performing Organization Address City/State/ZIP Code Phon e Number [facility] [address] [place] [address] (ABNORMAL) Basic metabolic panel (Ca, Cl, CO2, Creat, Gluc, K, Na, BUN) (03/01/2020 10:39 AM TRAVEL MONEY ADVISOR) Analysis Performed At Patho logist Time Signature Sodium 136 133 - 144 03/02/2020 [place] mmol/L 9:48 AM [facility] Potassium 4.0 3.4 - 5.3 03/02/2020 [place] mmol/L 9:48 AM [facility] Chloride 103 94 - 109 03/02/2020 [place] mmol/L 9:48 AM [facility] Carbon Dioxide 27 20 - 32 03/02/2020 [place] mmol/L 10:06 AM [facility] Anion Gap 6 3 - 14 03/02/2020 [place] mmol/L 10:06 AM [facility] Glucose 109 (H) 70 - 99 03/02/2020 [place] mg/dL 10:06 AM [facility] Comment: Fasting specimen Urea Nitrogen 15 7 - 30 mg/dL 03/02/2020 10:06 AM [place] [place] [facility] Creatinine 0.68 0.52 - 1.04 mg/dL 03/02/2020 10:06 AM [place] [facility] GFR Estimate >90 >60 03/02/2020 10:06 AM VLADIMIR MCCLURE mL/min/{1.73_m2} [facility] [place] Comment: Non GFR Calc Starting 04/13/2018, serum creatinine ba sed estimated GFR (eGFR) will be calculated using the Chronic Kidney Dise ase Epidemiology Collaboration (CKD-EPI) equation. GFR Estimate If >90 >60 mL/min/{1.73_m2} 03/02/2020 10 :06 AM [facility] Comment: GFR Calc Starting 04/13/2018, serum creatinine ba sed estimated GFR (eGFR) will be calculated using the Chronic Kidney Dise ase Epidemiology Collaboration (CKD-EPI) equation. Calcium 9.3 8.5 - 10.1 mg/dL 03/02/2020 10:06 AM [facility] Specimen Anatomical Collection Method Collection Time Receive d Time (Source) Location / / Volume Laterality Blood specimen 03/01/2020 10:39 0 (specimen) AM TRAVEL MONEY ADVISOR 10:40 AM TRAVEL MONEY ADVISOR Francia Nair MD LAB - BLOOD ORDERABLES Performing Organization Address City/State/ZIP Code Phon e Number [facility] [address] [place] [address] (ABNORMAL) Lipid panel reflex to direct LDL Fasting (03/01/2020 10:39 AM TRAVEL MONEY ADVISOR) P athologist Signature Cholesterol 230 (H) <200 mg/dL 03/02/2020 [facility] 10:06 AM [facility] Comment: Desirable: <200 mg/dl Triglycerides 171 (H) <150 mg/dL 03/02/2020 10:19 AM TRAVEL MONEY ADVISOR [facility] Comment: Borderline high: ??150-199 mg/dl High: ? 200-499 mg/dl Very high: ? >499 mg/dl Fasting specimen HDL Cholesterol 46 (L) >49 mg/dL 03/02/2020 10:[address] [facility] LDL Cholesterol 150 (H) <100 mg/dL 03/02/2020 10:19 [facility] Comment: Above desirable: ??100-129 mg/dl Borderline High: ??130-159 mg/dL High: ? 160-189 mg/dL Very high: ? >189 mg/dl Non HDL Cholesterol 184 (H) <130 mg/dL 03/02/2020 10:14 AM [facility] Comment: Above Desirable: ??130-159 mg/dl Borderline high: ??160-189 mg/dl High: ? 190-219 mg/dl Very high: ? >219 mg/dl Specimen Anatomical Collection Method Collection Time Receive d Time (Source) Location / / Volume Laterality Blood specimen 03/01/2020 10:39 0 (specimen) AM TRAVEL MONEY ADVISOR 10:40 AM TRAVEL MONEY ADVISOR Francia Nair MD LAB - BLOOD ORDERABLES Performing Organization Address City/State/ZIP Code Phon e Number [facility] [address] [place] [address] documented in this encounter Visit Diagnoses Diagnosis Encounter for routine adult health exami nation without abnormal findings - Primary Morbid obesity (H) Morbid obesity Moderate episode of recurrent major depr essive disorder (H) Essential hypertension Unspecified essential hypertension Prolonged QT interval Nonspecific abnormal electrocardiogram ( ECG) (EKG) Hyperlipidemia LDL goal <130 Other and unspecified hyperlipidemia Attention deficit disorder, unspecified hyperactivity presence Blood glucose abnormal Other abnormal glucose Anxiety Anxiety state, unspecified documented in this encounter Additional Health Concerns Assessment Noted Time PHQ-9 Depression Total Score: 7 03/05/2020 7:11 AM TRAVEL MONEY ADVISOR documented as of this encounter Care Teams Sap Senior Developer Relationship Specialty Start Date End Date Francia Nair MD PCP - General Internal Medicine 01/28/13 [address] [place] [phone] Francia Nair MD Assigned PCP 01/07/13 [address] [place] [phone] documented as of this encounter
--- OUTSIDE RECORDS SUMMARY | 2022-01-30 11:36 | XMS_ITS | Encounter Summary ---
:1960 Author Organization [facility] Address [address] [place] [address]. [place] [address] Care Team Providers Name Role Phone Francia Nair MD Primary Care Provider Francia Nair MD Unavailable Reason for Visit Reason Onset Date Comments Recheck Medication 07/26/2019 Medication recheck. Pt. states she's stay strugging on her ADD. she's stop taking her ADD med since may. Encounter Details Date Type Department Care Team Description 07/26/2019 Virtual Visit [facility] Francia Nair MD Attention deficit disorder, unspecified hyperactivity presence (Primary Dx); [facility] [place] [address] Mild episode of recurrent ma braxton depressive disorder (H); [address] Essential [place] [id number] Social History Tobacco Use Types Packs/Day Years [...] 08/12/2021 relatives? How often do you attend samaritan or islam Never 08/12/2021 services? Do you belong to any clubs or organizations such as Yes 08/12/2021 samaritan groups, unions, fraternal or athletic groups, or [...] place to sleep or slept in a snf (including now)? Sex Assigned at Date Recorded Female 10/16/2020 6:22 PM CDT documented as of this encounter Progress Notes Francia Nair MD - 07/26/2019 1:20 PM CDT Subjective Robbie Miller is a 59 year old female who is being evaluated via a billable telephone visit. The patient has been notified of following: This telephone visit will be conducted via a call between you and your physician/provider. We have found that certain health care needs can be provided without the need for a physical exam. This service lets us provide the care you need with a short phone conversation. If a prescription is necessary we can send it directly to your pharmacy. If lab work is needed we can place an order for that and you can then stop by our lab to have the test done at a later time. If during the course of the call the physician/provider feels a telephone visit is not appropriate, you will not be charged for this service. Patient has given verbal consent for Telephone visit? Yes Robbie Miller complains of Chief Complaint Patient presents with ??? Recheck Medication Medication recheck ALLERGIES No known drug allergies and Varenicline Her primary concern today is follow-up of her ADD. She had gone to [facility] in May and had evaluation for prolonged QT. They felt this was a persistent acquired prolonged QT and did state they felt okay with her continuing her current medications but felt they did not want her to start anything else that might prolong it and also recommended to follow-up in 6 months. She was a little concerned about that so she stopped the Vyvanse at that time. She has been struggling without it though and feels she needs to be on some dose. She tried the 40 mg again today but felt that that was causing palpitations again so she would like to try a lower dose. Hypertension Follow-up ?? Well controlled. The [facility] also suggested regular monitoring of her potassium and avoid lowpotassium levels. They had checked it in May and it was normal. ? Do you check your blood pressure regularly outside of the clinic? No ?? Are you following a low salt diet? No ?? Are your blood pressures ever more than 140 on the top number (systolic) OR more than 90 on the bottom number (diastolic), for example 140/90? Yes Depression Followup ?? How are you doing with your depression since your last visit? No change, doing well. She feels she may want to eventually try decreasing the Prozac. ?? Are you having other symptoms that might be associated with depression? No ?? Have you had a significant life event? No ?? Are you feeling anxious or having panic attacks? No ?? Do you have any concerns with your use of alcohol or other drugs? No Social History Tobacco Use ??? Smoking status: Former Smoker Types: Cigarettes Last attempt to quit: 05/10/2018 Years since quittin.2 ??? Smokeless tobacco: Never Used ??? Tobacco comment: 3/4 PPD- Substance Use Topics ??? Alcohol use: Yes Comment: ocassional 3-4 drinks per month ??? Drug use: No Comment: none PHQ 01/07/2018 11/18/2018 01/23/2019 PHQ-9 Total Score 11 7 3 Q9: Thoughts of better off /self-harm past 2 weeks Not at all Not at all Not at all Reviewed and updated as needed this visit by Provider Review of Systems No palpitations except when taking the Vyvanse, no headache, shortness of breath or chest pain. Objective Reported vitals: There were no vitals taken for this visit. Assessment/Plan: 1. Attention deficit disorder, unspecified hyperactivity presence Recommend we try the 30 mg dose, advised she can go down to 20 mg if she does not tolerate this well. We will plan on seeing her towards the end of November for her routine physical and at that time we can do lab and EKG. - lisdexamfetamine (VYVANSE) 30 MG capsule; Take 1 capsule (30 mg) by mouth every morning Dispense: 30 capsule; Refill: 0 2. Mild episode of recurrent major depressive disorder (H) Currently doing well, will continue the current dose for the time being, advised that if she feels things are going well enough that she wants to try to decrease, I would wean her down to 20 but advised her to send me a my chart message and I can give her instructions and do a prescription at that time. - FLUoxetine (PROZAC) 40 MG capsule; Take 1 capsule (40 mg) by mouth daily Dispense: 90 capsule; Refill: 1 3. Essential hypertension Continue current medication, recheck her lab at her physical in November. In the future if there is any difficulty maintaining her potassium levels may consider dropping the diuretic. - lisinopril-hydrochlorothiazide (ZESTORETIC) 10-12.5 MG tablet; Take 1 tablet by mouth daily Dispense: 90 tablet; Refill: 1 Return in about 5 months (around 12/15/2019) for Physical Exam. Phone call duration: 9 minutes and 2 seconds Francia Nair MD documented in this encounter Plan of Treatment Not on filedocumented as of this encounter Visit Diagnoses Diagnosis Attention deficit disorder, unspecified hyperactivity presence - Primary Mild episode of recurrent major depressi ve disorder (H) Essential hypertension Unspecified essential hypertension documented in this encounter Additional Health Concerns Assessment Noted Time PHQ-9 Depression Total Score: 3 01/23/2019 9:19 PM CDT documented as of this encounter Care Teams Barrel Builder Relationship Specialty Start Date End Date Francia Nair MD PCP - General Internal Medicine 01/28/13 [address] [place] [phone] Francia Nair MD Assigned PCP 01/07/13 [address] [place] [id number] documented as of this encounter
--- OUTSIDE RECORDS SUMMARY | 2022-01-30 11:36 | XMS_ITS | Encounter Summary ---
:1960 Author Organization [place] Address [address] [place] [address] Care Team Providers Name Role Phone Francia Nair MD Primary Care Provider Francia Nair MD Unavailable Reason for Visit Reason Comments Medication Refill lisinopril-hydrochlorothiazi de Encounter Details Date Type Department Care Team Description 03/17/[address] [facility] Francia Nair MD Medication Refill Clinic [place] [address] (lisinopril-hydrochloro [address] [place] [address] thiazide) [place] [address] [place], [place] [phone] (Wo rk) [address] [phone] Social History Tobacco Use Types Packs/Day Years [...] How often do you attend mormonism or yarsani Never 08/12/2021 services? Do you belong to [...] this encounter Miscellaneous Notes Telephone Encounter - Valorie Arriola RN - 03/17/2019 4:23 PM CST Routing refill request to provider for review/approval because: Labs out of range: Potassium Valorie Arriola RN NCIAL AID COORDINATOR Telephone Encounter - Ayla Feliciano - 03/17/2019 11:32 AM CST Requested Prescriptions Pending Prescriptions Disp Refills ??? lisinopril-hydrochlorothiazide (PRINZIDE/ZESTORETIC) 10-12.5 MG tablet [Pharmacy Med Name: LISINOPRIL-HCTZ 10/12.5MG TABLETS] 90 tablet 0 Sig: TAKE 1 TABLET BY MOUTH DAILY Diuretics (Including Combos) Protocol Failed - 03/17/2019 11:20 AM Failed - Normal serum potassium on file in past 12 months Recent Labs Lab Test 01/11/192010 POTASSIUM 3.1* Passed - Blood pressure under 140/90 in past 12 months BP Readings from Last 3 Encounters: 01/14/19 134/84 01/11/19 125/76 01/06/19 138/85 Passed - Recent (12 mo) or future (30 days) visit within the authorizing provider's specialty Patient has had an office visit with the authorizing provider or a provider within the authorizing providers department within the previous 12 mos or has a future within next 30 days. See Patient Info tab in inbasket, or Choose Columns in Meds & Orders section of the refill encounter. Passed - Medication is active on med list Passed - Patient is age 18 or older Passed - No active pregancy on record Passed - Normal serum creatinine on file in past 12 months Recent Labs Lab Test 01/11/192010 CR 0.71 Passed - Normal serum sodium on file in past 12 months Recent Labs Lab Test 01/11/192010 NA 140 Passed - No positive test in past 12 months Last Written Prescription Date: 12/09/18 Last Fill Quantity: 90, # refills: 0 Last office visit: 01/14/2019 with prescribing provider: 01/14/19 Future Office Visit: NCIAL AID COORDINATOR documented in this encounter Plan of Treatment Not on filedocumented as of this encounter Visit Diagnoses Diagnosis Essential hypertension Unspecified essential hypertension documented in this encounter Additional Health Concerns Assessment Noted Time PHQ-9 Depression Total Score: 3 01/23/2019 9:19 PM CDT documented as of this encounter Care Teams Director Of Distance Learning Relationship Specialty Start Date End Date Francia Nair MD PCP - General Internal Medicine 01/28/13 [address] [place] [address] [phone] Francia Nair MD Assigned PCP 01/07/13 [address] [place], [place] [phone] documented as of this encounter
--- OUTSIDE RECORDS SUMMARY | 2022-01-30 11:36 | XMS_ITS | Encounter Summary ---
:1960 Author Organization [place] Address [address] [place] [address] Care Team Providers Name Role Phone Francia Nair MD Primary Care Provider Francia Nair MD Unavailable Reason for Visit Reason Onset Date Comments Refill Request 04/22/2019 lisdexamfetamine Encounter Details Date Type Department Care Team Description 04/22/[address] [facility] Francia Nair MD Refill Request Clinic [place] [address] (lisdexamfetamine) [address] [place] [address] [place] [address] [place], [place] [phone] (Wo rk) [address] [phone] Social History Tobacco Use Types Packs/Day Years [...] How often do you attend advent or episcopal Never 08/12/2021 services? Do you belong to [...] encounter Miscellaneous Notes Telephone Encounter - Drea Collier RN - 04/26/2019 2:22 PM CST Controlled Substance Refill Request for vaidane Problem List Complete: Yes Last Written Prescription Date: 03/17/19 Last Fill Quantity: 30, # refills: 0 THE MOST RECENT OFFICE VISIT MUST BE WITHIN THE PAST 3 MONTHS. AT LEAST ONE FACE TO FACE VISIT MUST OCCUR EVERY 6 MONTHS. ADDITIONAL VISITS CAN BE VIRTUAL. Last Office Visit with [facility] primary care provider: 01/14/19 Future Office visit: Controlled substance agreement: Encounter-Level CSA - 09/03/2015: Controlled Substance Agreement - Scan on 09/04/2015 2:00 PM: [place] CONTROLLED SUBSTANCE AGREEMENT,09/03/15 Patient-Level CSA: Controlled Substance Agreement - Non - Opioid - Scan on 01/20/2019 12:51 PM: NON- OPIOID CONTROLLED SUBSTANCE AGREEMENT Last Urine Drug Screen: No results found for: CDAUT, No results found for: COMDAT, No results found for: THC13, PCP13, COC13, MAMP13, OPI13, AMP13, BZO13, TCA13, MTD13, BAR13, OXY13, PPX13, BUP13 Processing: Rx to be electronically transmitted to pharmacy by provider [email or web address] POWER SYSTEM ENGINEER checked in past 3 months? Yes checked 04/26/19-no concerns Last refilled on 03/30/19 CAL OFFICE SECRETARY Telephone Encounter - AmberkaterinaAditi - 04/22/2019 12:08 PM CST lisdexamfetamine Last Written Prescription Date: 03/17/19 Last Fill Quantity: 30, # refills: 0 Last Office Visit: 01/14/19 Future Office visit: Routing refill request to provider for review/approval because: Drug not on the [facility], [facility] or [facility] refill protocol or controlled substance CAL OFFICE SECRETARY documented in this encounter Plan of Treatment Not on filedocumented as of this encounter Visit Diagnoses Diagnosis Attention deficit disorder, unspecified hyperactivity presence documented in this encounter Additional Health Concerns Assessment Noted Time PHQ-9 Depression Total Score: 3 01/23/2019 9:19 PM CDT documented as of this encounter Care Teams Livestock Judging Coach Relationship Specialty Start Date End Date Francia Nair MD PCP - General Internal Medicine 01/28/13 [address] [place] [phone] Francia Nair MD Assigned PCP 01/07/13 [address] [place] [address] [phone] documented as of this encounter
--- OUTSIDE RECORDS SUMMARY | 2022-01-30 11:36 | XMS_ITS | Encounter Summary ---
:1960 Author Organization [place] Address [address] [place] [address] Care Team Providers Name Role Phone Francia Nair MD Primary Care Provider Francia Nair MD Unavailable Reason for Visit Reason Onset Date Comments Refill Request 08/24/2019 Encounter Details Date Type Department Care Team Description 08/24/2019 MyC Refill [facility] Kin Nair MD Refill Request [place] [address] [facility] 200 [address] [address] [facility] [place] [address] [phone] Social History Tobacco Use Types Packs/Day Years [...] 08/12/2021 relatives? How often do you attend islam or gnosticism Never 08/12/2021 services? Do you belong to any clubs or organizations such as Yes 08/12/2021 islam groups, unions, fraternal or athletic groups, or [...] this encounter Miscellaneous Notes Telephone Encounter - Sherita Adkins RN - 08/25/2019 10:05 AM CDT Controlled Substance Refill Request for Vyvanse 30 mg Problem List Complete: Yes Last Written Prescription Date: 07/26/19 Last Fill Quantity: 30, # refills: 0 Last Office Visit with [facility] primary care provider: 07/26/2019 Future Office visit: Controlled substance agreement: Encounter-Level [...] be electronically transmitted to pharmacy by provider [email or web address] RX monitoring program ([place]) reviewed: SALES PROFESSIONAL BILINGUAL reviewed- no concerns documented in this encounter Plan of Treatment Not on filedocumented as of this encounter Visit Diagnoses Diagnosis Attention deficit disorder, unspecified hyperactivity presence documented in this encounter Additional Health Concerns Assessment Noted Time PHQ-9 Depression Total Score: 3 01/23/2019 9:19 PM CDT documented as of this encounter Care Teams Agricultural Equipment Test Engineer Relationship Specialty Start Date End Date Francia Nair MD PCP - General Internal Medicine 01/28/13 [address] [place] [address] Francia Nair MD Assigned PCP 01/07/[address] [address] documented as of this encounter
--- OUTSIDE RECORDS SUMMARY | 2022-01-30 11:36 | XMS_ITS | Encounter Summary ---
:1960 Author Organization [place] Address [address] [place] [address] Care Team Providers Name Role Phone Francia Nair MD Primary Care Provider Francia Nair MD Unavailable Reason for Visit Reason Onset Date Comments Refill Request 04/04/2020 Encounter Details Date Type Department Care Team Description 04/04/2020 Refill [facility] Kin Nair MD Refill Request [place] [address] [facility] 200 [address] [place] [address] [place] [address] [phone] Social History Tobacco Use Types Packs/Day Years [...] How often do you attend adventism or episcopal Never 08/12/2021 services? Do you [...] Telephone Encounter - Hannah Kaye RN - 04/06/2020 2:29 PM CST Routing refill request to provider for review/approval because: Labs out of range: PHQ A break in medication Hannah Kaye RN, BSN ORA OPERATIONS CONSULTANT documented in this encounter Plan of Treatment Not on filedocumented as of this encounter Visit Diagnoses Diagnosis Mild episode of recurrent major depressi ve disorder (H) documented in this encounter Additional Health Concerns Assessment Noted Time PHQ-9 Depression Total Score: 7 03/05/2020 7:11 AM SEPHORA OPERATIONS CONSULTANT documented as of this encounter Care Teams [employer] Reading Teacher Relationship Specialty Start Date End Date Francia Nair MD PCP - General Internal Medicine 01/28/13 [address] [place] [address] [phone] Francia Nair MD Assigned PCP 01/07/13 [address] [place] [address] documented as of this encounter
--- OUTSIDE RECORDS SUMMARY | 2022-01-30 11:36 | XMS_ITS | Encounter Summary ---
:1960 Author Organization [place] Address [address] [place] [address] Care Team Providers Name Role Phone Francia Nair MD Primary Care Provider Francia Nair MD Unavailable Reason for Visit Reason Onset Date Comments Refill Request 10/27/2019 Vyvanse Encounter Details Date Type Department Care Team Description 10/27/2019 Refill [facility] Francia Nair MD Refill Request Clinic [place] [address] (Vyvanse) [address] [place] 200 [place] [address] [place], [place] [phone] (Wo rk) [address] [phone] Social History Tobacco Use Types Packs/Day Years [...] 08/12/2021 relatives? How often do you attend gnosticist or hinduism Never 08/12/2021 services? Do you belong to any clubs or organizations such as Yes 08/12/2021 gnosticist groups, unions, fraternal or athletic groups, or [...] Telephone Encounter - Valorie Arriola RN - 10/27/2019 12:49 PM CDT Controlled Substance Refill Request for Vyvanse Problem List Complete: Yes Last Written Prescription Date: 09/25/19 Last Fill Quantity: 30, # refills: 0 THE MOST RECENT OFFICE VISIT MUST BE WITHIN THE PAST 3 MONTHS. AT LEAST ONE FACE TO FACE VISIT MUST OCCUR EVERY 6 MONTHS. ADDITIONAL VISITS CAN BE VIRTUAL. (THIS STATEMENT SHOULD BE DELETED.) Last Office Visit with [facility] primary care provider: 09/13/19 (Ankur), 07/26/19 (Joanie) Future Office visit: Controlled substance agreement: Encounter-Level CSA - 09/03/2015: Controlled Substance Agreement - Scan on 09/04/2015 2:00 PM: [place] CONTROLLED SUBSTANCE AGREEMENT,09/03/15 Patient-Level CSA: Controlled Substance [...] be electronically transmitted to pharmacy by provider [email or web address] PRIMARY SPECIAL EDUCATOR checked in past 3 months? Yes reviewed today. No concerns. Vyvanse last filled 09/25/19, #30. documented in this encounter Plan of Treatment Not on filedocumented as of this encounter Visit Diagnoses Diagnosis Attention deficit disorder, unspecified hyperactivity presence documented in this encounter Additional Health Concerns Assessment Noted Time PHQ-9 Depression Total Score: 10 09/13/2019 2:55 PM CD T documented as of this encounter Care Teams Customer Service Agent Relationship Specialty Start Date End Date Francia Nair MD PCP - General Internal Medicine 01/28/13 [address] [place], [place] [phone] Francia Nair MD Assigned PCP 01/07/13 [address] [place], [place] [phone] documented as of this encounter
--- OUTSIDE RECORDS SUMMARY | 2022-01-30 11:36 | XMS_ITS | Encounter Summary ---
:1960 Author Organization [place] Address [address] [place] [address]. [place] [address] Care Team Providers Name Role Phone Francia Nair MD Primary Care Provider Francia Nair MD Unavailable Reason for Visit Reason Onset Date Comments Refill Request 02/14/2019 vhugo Encounter Details Date Type Department Care Team Description 02/14/2019 MyC Refill [facility] Ottoniel Morfin Refill Request [facility] (vy[facility]oli[facility]) [address] [facility] [address] [place] [phone] Social History Tobacco Use Types Packs/Day Years [...] 08/12/2021 relatives? How often do you attend confucianist or temple Never 08/12/2021 services? Do you belong to any clubs or organizations such as Yes 08/12/2021 confucianist groups, unions, fraternal or athletic groups, or [...] this encounter Miscellaneous Notes Telephone Encounter - Amee Storm RN - 02/15/2019 9:28 AM CDT Provider no longer with [facility]. Routing to PCP for review. Patient notified. Amee Storm RN 02/15/19 9:28 AM documented in this encounter Plan of Treatment Not on filedocumented as of this encounter Visit Diagnoses Diagnosis Attention deficit disorder, unspecified hyperactivity presence documented in this encounter Additional Health Concerns Assessment Noted Time PHQ-9 Depression Total Score: 3 01/23/2019 9:19 PM CDT documented as of this encounter Care Teams Benefits Representative Relationship Specialty Start Date End Date Francia Nair MD PCP - General Internal Medicine 01/28/13 [address] [place] [address] Francia Nair MD Assigned PCP 01/07/13 [address] [place] [address] documented as of this encounter
--- OUTSIDE RECORDS SUMMARY | 2022-01-30 11:36 | XMS_ITS | Encounter Summary ---
:1960 Author Organization [place] Address [address] [place] [address] Care Team Providers Name Role Phone Francia Nair MD Primary Care Provider Francia Nair MD Unavailable Reason for Visit Reason Onset Date Comments Refill Request 01/26/2020 vyvanatoliye Encounter Details Date Type Department Care Team Description 01/26/2020 Refill [facility] Francia Nair MD Refill Request Clinic [place] [address] (vyvanse) [address] [place] 200 [place] [address] [place], [place] [phone] (Wo rk) [address] [phone] Social History Tobacco Use Types Packs/Day Years [...] 08/12/2021 relatives? How often do you attend scientologist or adventism Never 08/12/2021 services? Do you belong to any clubs or organizations such as Yes 08/12/2021 scientologist groups, unions, fraternal or athletic groups, or [...] place to sleep or slept in a nursing home (including now)? Sex Assigned at Date Recorded Female 10/16/2020 6:22 PM CDT documented as of this encounter Miscellaneous Notes Telephone Encounter - Drea Collier RN - 01/27/2020 10:06 AM CDT Controlled Substance Refill Request for vyvanse Problem List Complete: Yes Last Written Prescription Date: 12/26/19 Last Fill Quantity: 30, # refills: 0 Last Office Visit with [facility] primary care provider: 09/13/19 for acute problem. 01/14/19 with primary care provider. Future Office visit: Next 5 appointments (look out 90 days) Mar 01, 2020 9:00 AM PHYSICAL with Francia Nair MD [facility] [address] [place] [phone] Controlled substance agreement: Encounter-Level CSA - 09/03/2015: Controlled Substance Agreement - Scan on 09/04/2015 2:00 PM: [place] CONTROLLED SUBSTANCE AGREEMENT,09/03/15 Patient-Level CSA: Controlled Substance [...] be electronically transmitted to pharmacy by provider [email or web address] SYSTEM PLANNING ENGINEER checked in past 3 months? Yes checked- no concerns Last filled 12/26/19 documented in this encounter Plan of Treatment Not on filedocumented as of this encounter Visit Diagnoses Diagnosis Attention deficit disorder, unspecified hyperactivity presence documented in this encounter Additional Health Concerns Assessment Noted Time PHQ-9 Depression Total Score: 10 09/13/2019 2:55 PM CD T documented as of this encounter Care Teams Webbing Weaver Relationship Specialty Start Date End Date Francia Nair MD PCP - General Internal Medicine 01/28/13 [address] [place], [place] [phone] Francia Nair MD Assigned PCP 01/07/13 [address] [place], [place] [phone] documented as of this encounter
--- OUTSIDE RECORDS SUMMARY | 2022-01-30 11:36 | XMS_ITS | Encounter Summary ---
:1960 Author Organization [place] Address [address] [place] [address] Care Team Providers Name Role Phone Francia Nair MD Primary Care Provider Francia Nair MD Unavailable Reason for Visit Reason Onset Date Comments Refill Request 07/05/2020 denied Encounter Details Date Type Department Care Team Description 07/05/2020 Refill [facility] Francia Nair MD Refill Request (denied) Clinic [place] [address] [facility] 303 [facility] 200 [place] [address] [place], [place] [phone] (Wo rk) [address] [phone] Social History Tobacco Use Types Packs/Day Years [...] often do you attend roman catholic or faith Never 08/12/2021 services? Do you belong to [...] Telephone Encounter - Francia Oakley RN - 07/06/2020 8:39 AM CST Requested too soon. See refill from 04/06/21 ING LINE WORKER documented in this encounter Plan of Treatment Not on filedocumented as of this encounter Visit Diagnoses Diagnosis Mild episode of recurrent major depressi ve disorder (H) documented in this encounter Additional Health Concerns Assessment Noted Time PHQ-9 Depression Total Score: 7 03/05/2020 7:11 AM PACKING LINE WORKER documented as of this encounter Care Teams Claims Configuration Analyst Relationship Specialty Start Date End Date Francia Nair MD PCP - General Internal Medicine 01/28/13 [address] [place] [phone] Francia Nair MD Assigned PCP 01/07/13 [address] [place] [address] documented as of this encounter
--- OUTSIDE RECORDS SUMMARY | 2022-01-30 11:36 | XMS_ITS | Encounter Summary ---
:1960 Author Organization [place] Address [address] [place] [address] Care Team Providers Name Role Phone Francia Nair MD Primary Care Provider Francia Nair MD Unavailable Reason for Visit Reason Onset Date Comments Refill Request 11/24/2019 Vyvanse Encounter Details Date Type Department Care Team Description 11/24/2019 Refill [facility] Francia Nair MD Refill Request Clinic [place] [address] (Vyvanse) [address] [place] 200 [place] [address] [place], [place] [phone] (Wo rk) [address] [phone] Social History Tobacco Use Types Packs/Day Years [...] How often do you attend rastafari or mandaeism Never 08/12/2021 services? Do you belong to [...] Telephone Encounter - Valorie Arriola RN - 11/24/2019 4:13 PM CDT Controlled Substance Refill Request for Vyvavnse Problem List Complete: Yes Last Written Prescription Date: 10/27/19 Last Fill Quantity: 30, # refills: 0 THE MOST RECENT OFFICE VISIT MUST BE WITHIN THE PAST 3 MONTHS. AT LEAST ONE FACE TO FACE VISIT MUST OCCUR EVERY 6 MONTHS. ADDITIONAL VISITS CAN BE VIRTUAL. (THIS STATEMENT SHOULD BE DELETED.) Last Office Visit with [facility] primary care provider: 09/13/19 (Ankur), 07/26/19 virtual visit (Joanie) Future Office visit: Controlled substance agreement: Encounter-Level CSA - 09/03/2015: Controlled Substance Agreement - Scan on 09/04/2015 2:00 PM: [place] CONTROLLED SUBSTANCE AGREEMENT,09/03/15 Patient-Level CSA: Controlled Substance [...] be electronically transmitted to pharmacy by provider [email or web address] NEW CAR MAKE READY MECHANIC checked in past 3 months? Yes checked on 10/27/19 (no concerns) documented in this encounter Plan of Treatment Not on filedocumented as of this encounter Visit Diagnoses Diagnosis Attention deficit disorder, unspecified hyperactivity presence documented in this encounter Additional Health Concerns Assessment Noted Time PHQ-9 Depression Total Score: 10 09/13/2019 2:55 PM CD T documented as of this encounter Care Teams Airplane Rental Clerk Relationship Specialty Start Date End Date Francia Nair MD PCP - General Internal Medicine 01/28/13 [address] [place], [place] [phone] Francia Nair MD Assigned PCP 01/07/13 [address] [place] [address] [phone] documented as of this encounter
--- OUTSIDE RECORDS SUMMARY | 2022-01-30 11:36 | XMS_ITS | Encounter Summary ---
:1960 Author Organization [place] Address [address] [place] [address] Care Team Providers Name Role Phone Francia Nair MD Primary Care Provider Francia Nair MD Unavailable Reason for Visit Reason Comments Allied Health Visit BP check Encounter Details Date Type Department Care Team Description 04/14/2019 Allied Health/Nurse [facility] All ied Health Visit (BP Visit Clinic [place] check ) [address] [place] [address] Social History Tobacco Use Types [...] 08/12/2021 relatives? How often do you attend faith or synagogue Never 08/12/2021 services? Do you belong to any clubs or organizations such as Yes 08/12/2021 faith groups, unions, fraternal or athletic groups, or [...] PM CDT documented as of this encounter Last Filed Vital Signs Vital Sign Reading Time Taken Comments Blood Pressure 122/76 04/14/2019 1:41 PM PLANT ELECTRICAL ENGINEER Pulse - - Temperature - - Respiratory Rate - - Oxygen Saturation - - Inhaled Oxygen Concentration - - Weight - - Height - - Body Mass Index - - documented in this encounter Plan of Treatment Not on filedocumented as of this encounter Visit Diagnoses Diagnosis Essential hypertension - Primary Unspecified essential hypertension documented in this encounter Additional Health Concerns Assessment Noted Time PHQ-9 Depression Total Score: 3 01/23/2019 9:19 PM CDT documented as of this encounter Care Teams Client Sales And Service Officer Relationship Specialty Start Date End Date Francia Nair MD PCP - General Internal Medicine 01/28/13 [address] [place] [address] Francia Nair MD Assigned PCP 01/07/13 [address] [place] [phone] documented as of this encounter
--- OUTSIDE RECORDS SUMMARY | 2022-01-30 11:36 | XMS_ITS | Encounter Summary ---
:1960 Author Organization [place] Address [address] [place] [address] Care Team Providers Name Role Phone Francia Nair MD Primary Care Provider Francia Nair MD Unavailable Reason for Visit Reason Onset Date Comments Refill Request 05/30/2019 Vyanse Encounter Details Date Type Department Care Team Description 05/30/2019 Refill [facility] Francia Nair MD Refill Request ([facility] [place] [address] [facility] ) [address] [place] [address] [place], [place] [phone] (Wo rk) [address] [phone] Social History Tobacco Use Types Packs/Day Years [...] How often do you attend restorationist or methodist Never 08/12/2021 services? Do you [...] this encounter Miscellaneous Notes Telephone Encounter - Nga Thompson MD - 05/30/2019 3:[address] Francia Nair will review this request tomorrow when she is back to the office SCHOOL COORDINATOR Telephone Encounter - Francia Oakley RN - 05/30/2019 11:36 AM CST Controlled Substance Refill Request for Vyvanse Problem List Complete: No PROVIDER TO CONSIDER COMPLETION OF PROBLEM LIST AND OVERVIEW/CONTROLLED SUBSTANCE AGREEMENT Last Written Prescription Date: 04/26/19 Last Fill Quantity: 30, # refills: 0 THE MOST RECENT OFFICE VISIT MUST BE WITHIN THE PAST 3 MONTHS. AT LEAST ONE FACE TO FACE VISIT MUST OCCUR EVERY 6 MONTHS. ADDITIONAL VISITS CAN BE VIRTUAL. (THIS STATEMENT SHOULD BE DELETED.) Last Office Visit with [facility] primary care provider: 01/14/19 Future Office visit: Controlled substance agreement: Encounter-Level CSA - 09/03/2015: Controlled Substance Agreement - Scan on 09/04/2015 2:00 PM: [place] CONTROLLED SUBSTANCE AGREEMENT,09/03/15 Patient-Level CSA: Controlled Substance Agreement - Non - Opioid - Scan on 01/20/2019 12:51 PM: NON- OPIOID CONTROLLED SUBSTANCE AGREEMENT Last Urine Drug Screen: No results found for: CDAUT, No results found for: COMDAT, No results found for: THC13, PCP13, COC13, MAMP13, OPI13, AMP13, BZO13, TCA13, MTD13, BAR13, OXY13, PPX13, BUP13 RX monitoring program ([place]) reviewed: DAYTIME CAREGIVER not reviewed/not due - last done on 04/26/19 [place] profile: [email or web address] SCHOOL COORDINATOR Telephone Encounter - Kasey Sales - 05/30/2019 10:28 AM CST Pt requesting a refill for her Vyvanse to be sent to her pharmacy ([facility]). She states she has 2 days left of the las RX. SCHOOL COORDINATOR documented in this encounter Plan of Treatment Not on filedocumented as of this encounter Visit Diagnoses Diagnosis Attention deficit disorder, unspecified hyperactivity presence documented in this encounter Additional Health Concerns Assessment Noted Time PHQ-9 Depression Total Score: 3 01/23/2019 9:19 PM CDT documented as of this encounter Care Teams Analytical Manager Relationship Specialty Start Date End Date Francia Nair MD PCP - General Internal Medicine 01/28/13 [address] [place] [address] Francia Nair MD Assigned PCP 01/07/13 [address] [place] [id number] documented as of this encounter
--- OUTSIDE RECORDS SUMMARY | 2022-01-30 11:36 | XMS_ITS | Encounter Summary ---
:1960 Author Organization [place] Address [address] [place] [address] Care Team Providers Name Role Phone Francia Nair MD Primary Care Provider Francia Nair MD Unavailable Reason for Visit Reason Onset Date Comments Refill Request 04/05/2020 Encounter Details Date Type Department Care Team Description 04/05/2020 MyC Refill [facility] Kin Nair MD Refill Request [place] [address] [facility] 200 [address] [place] [address] [facility] [address] [phone] Social History Tobacco Use Types Packs/Day Years [...] 08/12/2021 relatives? How often do you attend gnosticism or orthodoxy Never 08/12/2021 services? Do you belong to any clubs or organizations such as Yes 08/12/2021 gnosticism groups, unions, fraternal or athletic groups, or [...] Telephone Encounter - Sussy Herron RN - 04/09/2020 2:19 PM CST Routing refill request to provider for review/approval because: Blood pressure out of range RNATIONAL LOGISTICS MANAGER documented in this encounter Plan of Treatment Not on filedocumented as of this encounter Visit Diagnoses Diagnosis Essential hypertension Unspecified essential hypertension Mild episode of recurrent major depressi ve disorder (H) documented in this encounter Additional Health Concerns Assessment Noted Time PHQ-9 Depression Total Score: 7 03/05/2020 7:11 AM INTERNATIONAL LOGISTICS MANAGER documented as of this encounter Care Teams Supervisor Paper Products Relationship Specialty Start Date End Date Francia Nair MD PCP - General Internal Medicine 01/28/13 [address] [place] [phone] Francia Nair MD Assigned PCP 01/07/13 [address] [place] [address] [phone] documented as of this encounter
--- OUTSIDE RECORDS SUMMARY | 2022-01-30 11:36 | XMS_ITS | Encounter Summary ---
:1960 Author Organization [place] Address [address] [place] [address] Care Team Providers Name Role Phone Francia Nair MD Primary Care Provider Francia Nair MD Unavailable Reason for Visit Reason Comments Medication Refill Encounter Details Date Type Department Care Team Description 07/06/2020 Refill [facility] Kin Nair MD Medication Refill [place] [address] [facility] 200 [address] [place] [address] [facility] [place] [address] [phone] Social History Tobacco Use Types Packs/Day Years [...] How often do you attend catholic or amish Never 08/12/2021 services? Do you [...] encounter Miscellaneous Notes Telephone Encounter - Francia Oakley, RN - 07/06/2020 1:08 PM CST Please see message below and advise. Routing refill request to provider for review/approval because: PHQ-9 score: PHQ 03/05/2020 PHQ-9 Total Score 7 Q9: Thoughts of better off /self-harm past 2 weeks Not at all K MASON Telephone Encounter - Adrienne Ortiz - 07/06/2020 12:57 PM CST Patient picked up an RX at pharmacy that only had 16 of the 90 pills in the bottle and per the pharmacy now she needs a new RX for the remaining Qty. Please send today. K MASON documented in this encounter Plan of Treatment Not on filedocumented as of this encounter Visit Diagnoses Diagnosis Mild episode of recurrent major depressi ve disorder (H) documented in this encounter Additional Health Concerns Assessment Noted Time PHQ-9 Depression Total Score: 7 03/05/2020 7:11 AM BRICK MASON documented as of this encounter Care Teams Brass Chaser Relationship Specialty Start Date End Date Francia Nair MD PCP - General Internal Medicine 01/28/13 [address] [place] [phone] Francia Nair MD Assigned PCP 01/07/13 [address] [place] [phone] documented as of this encounter
--- OUTSIDE RECORDS SUMMARY | 2022-01-30 11:36 | XMS_ITS | Encounter Summary ---
:1960 Author Organization [place] Address [address] [place] [address] Care Team Providers Name Role Phone Francia Nair MD Primary Care Provider Francia Nair MD Unavailable Reason for Visit Reason Onset Date Comments Medication Question 03/17/2019 Vyvanse Encounter Details Date Type Department Care Team Description 03/17/2019 Telephone [facility] Francia Nair MD Medication Question Clinic [place] [address] (Vyvanse ) [address] [place] [address] [place] [address] [place], [place] [phone] (Wo rk) [address] [phone] Social History Tobacco Use Types Packs/Day Years [...] How often do you attend zoroastrian or yarsanism Never 08/12/2021 services? Do you [...] Telephone Encounter - Drea Peter RN - 03/18/2019 10:21 AM CST Call to pt and left detailed message on identified VM. CIATE DEAN OF WOMEN Telephone Encounter - Francia Nair MD - 03/17/2019 5:47 PM CST I sent a new prescription for the 40 mg tablets. Please advise the patient she should try to do a blood pressure check on the higher dose after a couple weeks. CIATE DEAN OF WOMEN Telephone Encounter - Drea Peter RN - 03/17/2019 4:06 PM CST Pt asking for higher dose of Vyvanse, 40 mg. Last refill of 30 mg on 02/15/19 for #30 Last OV on 01/14/19 Routing refill request to provider for review/approval because: Drug not on the [facility] refill protocol Reviewed [place] HYDRAULIC LIFT DRIVER, last fill on 02/16/19 for #30 [facility] OF WOMEN Telephone Encounter - Darcie Galaviz - 03/17/2019 11:34 AM CST Patient requesting 40 mg of lisdexamfetamine (VYVANSE) 30 MG capsule instead of the 30 mg. Patient uses [facility] in [place] off [facility]. Ok to call and lm [phone] CIATE DEAN OF WOMEN documented in this encounter Plan of Treatment Not on filedocumented as of this encounter Visit Diagnoses Diagnosis Attention deficit disorder, unspecified hyperactivity presence - Primary documented in this encounter Additional Health Concerns Assessment Noted Time PHQ-9 Depression Total Score: 3 01/23/2019 9:19 PM CDT documented as of this encounter Care Teams Ic Designer Custom Relationship Specialty Start Date End Date Francia Nair MD PCP - General Internal Medicine 01/28/13 [address] [place] [address] Francia Nair MD Assigned PCP 01/07/13 [address] [place] [address] documented as of this encounter
--- OUTSIDE RECORDS SUMMARY | 2022-01-30 11:36 | XMS_ITS | Encounter Summary ---
:1960 Author Organization [place] Address [address] [place] [address] Care Team Providers Name Role Phone Francia Nair MD Primary Care Provider Francia Nair MD Unavailable Reason for Visit Reason Comments Medication Refill fluoxetine and lisinopril Encounter Details Date Type Department Care Team Description 03/15/2019 Refill [facility] Francia Nair MD Medication Refill [facility] [place] [address] (fluoxetine and [address] [place] 200 lisinopril ) [place] [address] [place], [place] [phone] (Wo rk) [address] [phone] Social History Tobacco Use Types Packs/Day Years [...] How often do you attend rastafari or zoroastrian Never 08/12/2021 services? Do you [...] Telephone Encounter - Drea Peter RN - 03/16/2019 3:04 PM CST Provider approval needed. Potassium Date Value Ref Range Status 01/11/2019 3.1 (L) 3.4 - 5.3 mmol/L Final Last OV 01/14/19 Pt is due at the end of the month for OV. BP Readings from Last 3 Encounters: 01/14/19 134/84 01/11/19 125/76 01/06/19 138/85 PHQ-9 SCORE 01/07/2018 11/18/2018 01/23/2019 PHQ-9 Total Score - - - PHQ-9 Total Score MyChart 9 (Mild depression) - - PHQ-9 Total Score 11 7 3 L OPERATOR BRANDY Telephone Encounter - Ayla Feliciano - 03/15/2019 3:21 PM CST Requested Prescriptions Pending Prescriptions Disp Refills ??? FLUoxetine (PROZAC) 40 MG capsule [Pharmacy Med Name: FLUOXETINE 40MG CAPSULES] 90 capsule 0 Sig: TAKE 1 CAPSULE BY MOUTH DAILY SSRIs Protocol Passed - 03/15/2019 5:07 AM Passed - PHQ-9 score less than [...] & Orders section of the refill encounter. Last Written Prescription Date: 10/04/18 Last Fill Quantity: 90, # refills: 1 Last office visit: 01/14/2019 with prescribing provider: 01/14/19 Future Office Visit: ??? lisinopril-hydrochlorothiazide (PRINZIDE/ZESTORETIC) 10-12.5 MG tablet [Pharmacy Med Name: LISINOPRIL-HCTZ 10/12.5MG TABLETS] 90 tablet 0 Sig: TAKE 1 TABLET BY MOUTH DAILY Diuretics (Including Combos) Protocol Failed - 03/15/2019 5:07 AM Failed - Normal serum potassium on [...] 12/09/18 Last Fill Quantity: 90, # refills: 1 Last office visit: 01/14/2019 with prescribing provider: 01/14/19 Future Office Visit: L OPERATOR BRANDY documented in this encounter Plan of Treatment Not on filedocumented as of this encounter Visit Diagnoses Diagnosis Mild episode of recurrent major depressi ve disorder (H) Essential hypertension Unspecified essential hypertension documented in this encounter Additional Health Concerns Assessment Noted Time PHQ-9 Depression Total Score: 3 01/23/2019 9:19 PM CDT documented as of this encounter Care Teams Personal Care Home Administrator Relationship Specialty Start Date End Date Francia Nair MD PCP - General Internal Medicine 01/28/13 [facility] 200 [place], [place] [phone] Francia Nair MD Assigned PCP 01/07/13 [address] [place] [address] documented as of this encounter
--- OUTSIDE RECORDS SUMMARY | 2022-01-30 11:36 | XMS_ITS | Encounter Summary ---
:1960 Author Organization [place] Address [address] [place] [address] Care Team Providers Name Role Phone Francia Nair MD Primary Care Provider Francia Nair MD Unavailable Reason for Visit Reason Onset Date Comments Refill Request 02/27/2020 Encounter Details Date Type Department Care Team Description 02/27/2020 Refill [facility] Kin Nair MD Refill Request [place] [address] [facility] 200 [address] [place] [address] [place] [address] [phone] Social History Tobacco Use Types Packs/Day Years [...] 08/12/2021 relatives? How often do you attend yarsanism or church Never 08/12/2021 services? Do you belong to any clubs or organizations such as Yes 08/12/2021 yarsanism groups, unions, fraternal or athletic groups, or [...] with No / Unsure 03/01/2020 9:00 AM ROCK CLIMBING TEAM MEMBER someone who was confirmed or suspected to have Coronavirus / COVID-19? documented as of this encounter Miscellaneous Notes Telephone Encounter - Drea Collier RN - 03/02/2020 1:00 PM CST Medication refused. duplicate. CLIMBING TEAM MEMBER Telephone Encounter - Cherelle Espinoza LPN - 03/01/2020 10:03 AM CST My Chart message sent to patient. CLIMBING TEAM MEMBER Telephone Encounter - Cherelle Espinoza LPN - 02/29/2020 11:35 AM CST Patient's home/cell number message on machine to call back. CLIMBING TEAM MEMBER Telephone Encounter - Francia Nair MD - 02/28/2020 6:27 PM CST She is due to schedule her 6-month controlled medication follow-up appointment. Since her blood pressure was high in August, recommend she schedule in the clinic with me. Once that appointment is scheduled, I will refill her medication. CLIMBING TEAM MEMBER Telephone Encounter - Sussy Herron RN - 02/28/2020 5:49 PM CST Controlled Substance Refill Request for Vyvanse Problem List Complete: Yes Last Written Prescription Date: 01/29/20 Last Fill Quantity: 30, # refills: 0 THE MOST RECENT OFFICE VISIT MUST BE WITHIN THE PAST 3 MONTHS. AT LEAST ONE FACE TO FACE VISIT MUST OCCUR EVERY 6 MONTHS. ADDITIONAL VISITS CAN BE VIRTUAL. (THIS STATEMENT SHOULD BE DELETED.) Last Office Visit with [facility] primary care provider: 09/13/19 Future Office visit: Next 5 appointments (look out 90 days) Mar 01, 2020 9:00 AM PHYSICAL with Francia Nair MD [facility] ([facility] [address] [facility] [id number] Controlled substance agreement: Encounter-Level CSA - 09/03/2015: Controlled Substance Agreement - Scan on 09/04/2015 2:00 PM: [place] CONTROLLED SUBSTANCE AGREEMENT,09/03/15 Patient-Level CSA: Controlled Substance [...] be electronically transmitted to pharmacy by provider [email or web address] MANAGER STRATEGIC PARTNERSHIPS checked in past 3 months? Yes 01/26/20- no concerns CLIMBING TEAM MEMBER documented in this encounter Plan of Treatment Not on filedocumented as of this encounter Visit Diagnoses Diagnosis Attention deficit disorder, unspecified hyperactivity presence documented in this encounter Additional Health Concerns Assessment Noted Time PHQ-9 Depression Total Score: 09/13/2019 2:55 PM CD T documented as of this encounter Care Teams Gastroenterology Manager Relationship Specialty Start Date End Date Francia Nair MD PCP - General Internal Medicine 01/28/13 [address] [place] [phone] Francia Nair MD Assigned PCP 01/07/13 [address] [place] [address] documented as of this encounter
--- OUTSIDE RECORDS SUMMARY | 2022-01-30 11:36 | XMS_ITS | Encounter Summary ---
:1960 Author Organization [place] Address [address] [place] [address] Care Team Providers Name Role Phone Francia Nair MD Primary Care Provider Francia Nari MD Unavailable Reason for Visit Reason Onset Date Comments Symptoms 09/13/2019 Ear Pain Encounter Details Date Type Department Care Team Description 09/13/2019 Telephone [facility] Francia Nair MD Symptoms (Ear Pain) Clinic [place] [address] [facility] [address] [place] [address] [place], [place] [phone] (Wo rk) [address] [phone] Social History Tobacco Use Types Packs/Day Years [...] 08/12/2021 relatives? How often do you attend latter day or jainism Never 08/12/2021 services? Do you belong to any clubs or organizations such as Yes 08/12/2021 latter day groups, unions, fraternal or athletic groups, or [...] in contact with No / Unsure 09/13/2019 10:48 AM CDT someone who was confirmed or suspected to have Coronavirus / COVID-19? documented as of this encounter Miscellaneous Notes Telephone Encounter - Drea Collier, RN - 09/13/2019 10:45 AM CDT Called patient and she stated that her left ear is feeling super full. Patient having pain and decreased hearing. Assisted with scheduling a vv with primary care provider for today. Patient verbalized understanding. Telephone Encounter - Joselin Foreman - 09/13/2019 10:37 AM CDT Pt calling with symptoms of left ear pain she has been experiencing over the last 2 days. She normally wears hearing aids but has noticed she has increased hearing loss in her left ear. She would like to know what she should do. Pt can be reached at [phone]. OK to leave a detailed message. Pleaseadvise. Thanks. documented in this encounter Plan of Treatment Not on filedocumented as of this encounter Visit Diagnoses Not on filedocumented in this encounter Additional Health Concerns Assessment Noted Time PHQ-9 Depression Total Score: 10 09/13/2019 2:55 PM CD T documented as of this encounter Care Teams Dog Show Judge Relationship Specialty Start Date End Date Francia Nair MD PCP - General Internal Medicine 01/28/13 [address] [place] [phone] Francia Nair MD Assigned PCP 01/07/13 [address] [place], [place] [phone] documented as of this encounter
--- OUTSIDE RECORDS SUMMARY | 2022-01-30 11:36 | XMS_ITS | Encounter Summary ---
:1960 Author Organization [place] Address [address] [place] [address] Care Team Providers Name Role Phone Francia Nair MD Primary Care Provider Francia Nair MD Unavailable Encounter Details Date Type Department Care Team Description 04/13/2019 Travel Social History Tobacco Use Types Packs/Day [...] 08/12/2021 relatives? How often do you attend taoism or sabianism Never 08/12/2021 services? Do you belong to any clubs or organizations such as Yes 08/12/2021 taoism groups, unions, fraternal or athletic groups, or [...] PM CDT documented as of this encounter Plan of Treatment Not on filedocumented as of this encounter Visit Diagnoses Not on filedocumented in this encounter Additional Health Concerns Assessment Noted Time PHQ-9 Depression Total Score: 3 01/23/2019 9:19 PM CDT documented as of this encounter Care Teams Care Transition Manager Relationship Specialty Start Date End Date Francia Nair MD PCP - General Internal Medicine 01/28/13 [address] [place], [place] [phone] Francia Nair MD Assigned PCP 01/07/13 [address] [place] [phone] documented as of this encounter
--- OUTSIDE RECORDS SUMMARY | 2022-01-30 11:36 | XMS_ITS | Encounter Summary ---
:1960 Author Organization [place] Address [address] [place] [address] Care Team Providers Name Role Phone Francia Nair MD Primary Care Provider Fracnia Nair MD Unavailable Reason for Visit Reason Onset Date Comments Medication Request 10/31/2019 Alternative to lisin opril-hydrochlorothiazide (ZESTORETIC) 10-12.5 MG tablet Encounter Details Date Type Department Care Team Description 10/31/2019 Telephone [facility] Francia Nair MD Medication Request Clinic [place] [address] (Alternative to [address] [place] 200 [place] [address] thiazide (ZESTORETIC) [place], [place] [phone] (Wo rk) 10-12.5 MG tablet ) [id number] [phone] Social History Tobacco Use Types Packs/Day Years [...] How often do you attend yazidi or roman catholic Never 08/12/2021 services? Do [...] Telephone Encounter - Francia Oakley RN - 10/31/2019 5:12 PM CDT Pharmacy states they have lisinopril 10 mg and hydrochlorothiazide 12.5 mg in stock. Separate prescriptions pended, please sign if appropriate. Telephone Encounter - Francia Nair MD - 10/31/2019 4:06 PM CDT Does the pharmacy have lisinopril separate from the hydrochlorothiazide? It can be difficult to cut a lisinopril hydrochlorothiazide 20-25 in half. I would prefer to order them separately. Telephone Encounter - Francia Oakley RN - 10/31/2019 10:40 AM CDT Please see message below and advise. Telephone Encounter - Adrienne Ortiz - 10/31/2019 7:27 AM CDT Fax received from Pharmacy stating lisinopril-hydrochlorothiazide (ZESTORETIC) 10-12.5 MG tablet Is on back order. Request to send new RX for the with appropriate directions, documented in this encounter Plan of Treatment Not on filedocumented as of this encounter Visit Diagnoses Diagnosis Essential hypertension - Primary Unspecified essential hypertension documented in this encounter Additional Health Concerns Assessment Noted Time PHQ-9 Depression Total Score: 10 09/13/2019 2:55 PM CD T documented as of this encounter Care Teams Drop Board Worker Relationship Specialty Start Date End Date Francia Nair MD PCP - General Internal Medicine 01/28/13 [address] [place] [phone] Francia Nair MD Assigned PCP 01/07/13 [address] [place] [address] [phone] documented as of this encounter
--- OUTSIDE RECORDS SUMMARY | 2022-01-30 11:36 | XMS_ITS | Encounter Summary ---
:1960 Author Organization [facility] Address [address] [place] [address] Care Team Providers Name Role Phone Francia Nair MD Primary Care Provider Francia Nair MD Unavailable Encounter Details Date Type Department Care Team Description 04/14/2019 Travel Social History Tobacco Use Types Packs/Day [...] How often do you attend pentecostal or sabianism Never 08/12/2021 services? Do you [...] documented as of this encounter Care Teams Childcare Center Director Relationship Specialty Start Date End Date Fracnia Nair MD PCP - General Internal Medicine 01/28/13 [address] [place], [place] [phone] Francia Nair MD Assigned PCP 01/07/13 [address] [place] [phone] documented as of this encounter
--- OUTSIDE RECORDS SUMMARY | 2022-01-30 11:36 | XMS_ITS | Encounter Summary ---
:1960 Author Organization [facility] Address [address] [place] [address] Care Team Providers Name Role Phone Francia Nair MD Primary Care Provider Francia Nair MD Unavailable Reason for Visit Reason Onset Date Comments Refill Request 01/31/2020 Lisinopril Encounter Details Date Type Department Care Team Description 01/31/2020 Refill [facility] rFancia Nair MD Refill Request Clinic [place] [address] (Lisinopril) [address] [place] [address] [place] [address] [place], [place] [phone] (Wo rk) [id number] [phone] Social History Tobacco Use Types Packs/Day Years [...] How often do you attend christianity or bahai Never 08/12/2021 services? Do you belong to [...] this encounter Miscellaneous Notes Telephone Encounter - Cherelle Espinoza LPN - 02/02/2020 10:51 AM CDT Patient advised and agrees to plan. Telephone Encounter - Francia Nair MD - 02/02/2020 6:34 AM CDT She needs appt for BP follow up. Schedule pt Telephone Encounter - Ayla Fernandes RN - 02/01/2020 3:15 PM CDT Routing refill request to provider for review/approval because: Labs not current: BP elevated > FM[facility] protocol for RN refill Telephone Encounter - Adrienne Ortiz - 01/31/2020 9:39 AM CDT Requested Prescriptions Pending Prescriptions Disp Refills ??? lisinopril (ZESTRIL) 10 MG tablet Last Written Prescription Date: 10/31/19 Last Fill Quantity: 90, # refills: 0 Last office visit: 09/13/2019 with prescribing provider: 09/13/19 Future Office Visit: Next 5 appointments (look out 90 days) Mar 01, 2020 9:00 AM PHYSICAL with Francia Nair MD [facility] ([facility]) [facility] [place] [facility] [id number] 90 tablet 0 Sig: Take 1 tablet (10 mg) by mouth daily MARCUS Inhibitors (Including Combos) Protocol Failed - 01/31/2020 9:39 AM Failed - Blood pressure under 140/90 in past 12 months BP Readings from Last 3 Encounters: 09/13/19 (!) 147/91 04/14/19 122/76 01/14/19 134/84 Failed - Normal serum creatinine on file in past 12 months Recent Labs Lab Test 01/11/192010 CR 0.71 Ok to refill medication if creatinine is low Failed - Normal serum potassium on file in past 12 months Recent Labs Lab Test 01/11/192010 POTASSIUM 3.1* Passed - Recent (12 mo) or future [...] on record Passed - No positive test within past 12 months documented in this encounter Plan of Treatment Not on filedocumented as of this encounter Visit Diagnoses Diagnosis Essential hypertension Unspecified essential hypertension documented in this encounter Additional Health Concerns Assessment Noted Time PHQ-9 Depression Total Score: 09/13/2019 2:55 PM CD T documented as of this encounter Care Teams Antique Clocks Repairer Relationship Specialty Start Date End Date Francia Nair MD PCP - General Internal Medicine 01/28/13 [address] [place] [phone] Francia Nair MD Assigned PCP 01/07/13 [address] [place] [address] documented as of this encounter
--- OUTSIDE RECORDS SUMMARY | 2022-01-30 11:36 | XMS_ITS | Encounter Summary ---
:1960 Author Organization [facility] Address [address] [place] [address] Care Team Providers Name Role Phone Francia Nair MD Primary Care Provider Francia Nair MD Unavailable Reason for Visit Reason Onset Date Comments Refill Request 12/26/2019 vyvanse Encounter Details Date Type Department Care Team Description 12/26/2019 Refill [facility] Francia Nair MD Refill Request Clinic [place] [address] (vyvanse) [address] [place] [address] [place] [address] [place], [place] [phone] (Wo rk) [address] [phone] Social History Tobacco Use Types Packs/Day Years [...] 08/12/2021 relatives? How often do you attend religion or protestant Never 08/12/2021 services? Do you belong to any clubs or organizations such as Yes 08/12/2021 religion groups, unions, fraternal or athletic groups, [...] Telephone Encounter - Francia Oakley RN - 12/26/2019 2:05 PM CDT Controlled Substance Refill Request for Vyvanse Problem List Complete: No PROVIDER TO CONSIDER COMPLETION OF PROBLEM LIST AND OVERVIEW/CONTROLLED SUBSTANCE AGREEMENT Last Written Prescription Date: 11/26/19 Last Fill Quantity: 30, # refills: 0 Last Office Visit with [facility] primary care provider: 09/13/19 Future Office visit: Controlled substance agreement: Encounter-Level [...] BZO13, TCA13, MTD13, BAR13, OXY13, PPX13, BUP13 [email or web address] checked in past 3 months? Yes 10/27/19 Telephone Encounter - Kasey Sales - 12/26/2019 1:29 PM CDT [facility] documented in this encounter Plan of Treatment Not on filedocumented as of this encounter Visit Diagnoses Diagnosis Attention deficit disorder, unspecified hyperactivity presence documented in this encounter Additional Health Concerns Assessment Noted Time PHQ-9 Depression Total Score: 10 09/13/2019 2:55 PM CD T documented as of this encounter Care Teams Curatorial Assistant Relationship Specialty Start Date End Date Francia Nair MD PCP - General Internal Medicine 01/28/13 [address] [place], [place] [phone] Francia Nair MD Assigned PCP 01/07/13 [address] [place], [place] [phone] documented as of this encounter
--- OUTSIDE RECORDS SUMMARY | 2022-01-30 11:37 | XMS_ITS | Encounter Summary ---
:1960 Author Organization [facility] Address [address] [place] [address] Care Team Providers Name Role Phone Francia Nair MD Primary Care Provider Francia Nair MD Unavailable Reason for Visit Reason Onset Date Comments Refill Request 08/21/2018 buPROPion (WELLBUTRI N XL) 300 MG 24 hr tablet Encounter Details Date Type Department Care Team Description 08/21/2018 Refill [facility] Yfn Novak, Ref ill Request Clinic [facility] SCHAEFER (buPROPion (WELLBUTRIN [address] [place] [address] XL) 300 MG 24 [place] [address] ) [place], [place] [phone] (Wo rk) [address] [phone] Social History Tobacco Use Types Packs/Day Years [...] How often do you attend restoration or mormonism Never 08/12/2021 services? Do you belong to [...] encounter Miscellaneous Notes Telephone Encounter - Francia Suarez RN - 08/23/2018 11:05 AM CDT Routing refill request to provider for review/approval because: PHQ-9 PHQ-9 score: PHQ-9 SCORE 01/07/2018 PHQ-9 Total Score - PHQ-9 Total Score MyChart 9 (Mild depression) PHQ-9 Total Score 11 Telephone Encounter - JakeHervenabeel Estevez - 08/23/2018 7:59 AM CDT Requested Prescriptions Pending Prescriptions Disp Refills ??? buPROPion (WELLBUTRIN XL) 300 MG 24 hr tablet [Pharmacy Med Name: BUPROPION XL 300MG TABLETS] 90tablet 0 Sig: TAKE 1 TABLET(300 MG) BY MOUTH EVERY MORNING Last Written Prescription Date: 01/15/2018 Last Fill Quantity: 90, # refills: 1 Last office visit: 06/14/2018 with prescribing provider: Future Office Visit: SSRIs Protocol Failed - 08/21/2018 7:44 AM Failed - PHQ-9 score less than 5 in past 6 months Please review last PHQ-9 score. Passed - Medication is Bupropion If the medication is Bupropion (Wellbutrin), and the patient is taking for smoking cessation; OK torefill. Passed - Medication is active on med [...] & Orders section of the refill encounter. documented in this encounter Plan of Treatment Not on filedocumented as of this encounter Visit Diagnoses Diagnosis Mild episode of recurrent major depressi ve disorder (H) documented in this encounter Additional Health Concerns Assessment Noted Time PHQ-9 Depression Total Score: 9 01/30/2022 7:03 AM CDT documented as of this encounter Care Teams Borough Coordinator Relationship Specialty Start Date End Date Francia Nair MD PCP - General Internal Medicine 01/28/13 [address] [place] [phone] Francia Nair MD Assigned PCP 01/07/13 [address] [place] [phone] documented as of this encounter
--- OUTSIDE RECORDS SUMMARY | 2022-01-30 11:37 | XMS_ITS | Encounter Summary ---
:1960 Author Organization [facility] Address [address] [place] [address] Care Team Providers Name Role Phone Francia Nair MD Primary Care Provider Francia Nair MD Unavailable Encounter Details Date Type Department Care Team Description 01/14/2019 Travel Social History Tobacco Use Types Packs/Day [...] How often do you attend worship or samaritan Never 08/12/2021 services? Do you belong to [...] documented as of this encounter Care Teams Manager Employee Benefits Relationship Specialty Start Date End Date Francia Nair MD PCP - General Internal Medicine 01/28/13 [address] [place], [place] [phone] Francia Nair MD Assigned PCP 01/07/13 [address] [place] [phone] documented as of this encounter
--- OUTSIDE RECORDS SUMMARY | 2022-01-30 11:37 | XMS_ITS | Encounter Summary ---
:1960 Author Organization [facility] Address [address] [place] [address]. [place] [address] Care Team Providers Name Role Phone Francia Nair MD Primary Care Provider Francia Nair MD Unavailable Reason for Visit Reason Comments RECHECK [facility] ER follow up. Hypertension Follow up. Encounter Details Date Type Department Care Team Description 01/14/2019 Office Visit [facility] Francia Nair MD Acute bronchospasm (Primary Dx); Clinic [place] [address] Attention deficit disorder, unspecified hyperactivity presence; [address] Mild episode of recurrent major depressi ve disorder (H); [place], [place] [phone] Social History Tobacco Use Types Packs/Day Years Used Date Former Smoker Cigarettes Quit: 05/10/19 Smokeless Tobacco: Never Used Tobacco Cessation: Counseling [...] How often do you attend rastafarian or worship Never 08/12/2021 services? Do you belong to [...] Sign Reading Time Taken Comments Blood Pressure 134/84 01/14/2019 9:25 AM CDT Pulse 88 01/14/2019 9:25 AM CDT Temperature 36.8 ??C (98.2 ??F) 01/14/2019 9:25 AM CDT Respiratory Rate 18 01/14/2019 9:25 AM CDT Oxygen Saturation 96% 01/14/2019 9:25 AM CDT Inhaled Oxygen Concentration - - Weight 94.6 kg (208 lb 8 oz) 01/14/2019 9:25 AM CDT Height 165.1 cm (5' 5) 01/14/2019 9:25 AM CDT Body Mass Index 34.7 01/14/2019 9:25 AM CDT documented in this encounter Patient Instructions Patient InstructionsFrancia Nair MD - 01/14/2019 9:20 AM CDT Start with Omeprazole (prilosec) 20 mg once a day for 6 weeks. . Wean down by taking omeprazole one day and pepcid 20 mg the next, do this 4 days. Then continue pepcid. You may need to continue this indefinitly. If your symptoms come back on pepcid, go back on omerazole. If your insurance covers it, Icould do a prescription. documented in this encounter Progress Notes Francia Nair MD - 01/14/2019 9:20 AM CDT Subjective Robbie Miller is a 58 year old female who presents to clinic today for the following health issues: HPI ED/UC Followup: Facility: [facility] Date of visit: 01/11/19 Reason for visit: SOB Current Status: mildly improved She had fairly acute onset of dyspnea, laryngitis. At ED she was wheezing, treated with neb and given inhaler and steroids. She has not have any fever, chills. She has non productive cough. She has a hard time lying flat due to dyspnea, wheezing so sleeping in recliner. She recently restarted omeprazole, wondering if reflux was related. Hypertension Follow-up ?? Do you check your blood pressure regularly outside of the clinic? No ?? Are you following a low salt diet? No ?? Are your blood pressures ever more than 140 on the top number (systolic) OR more than 90 on the bottom number (diastolic), for example 140/90? Yes Depression Followup She saw psychiatrist who feels much of her mood issues are aggravated by ADD and started Vyvanse. Her provider is leaving [facility] so I will need to do her refills. ?? How are you doing with your depression since your last visit? Improved ?? Are you having other symptoms that [...] Last attempt to quit: 05/10/2018 Years since quittin.6 ??? Smokeless tobacco: Never Used ??? Tobacco comment: 3 PPD- Substance Use Topics ??? Alcohol use: Yes Comment: ocassional 3-4 drinks per month ??? Drug use: No Comment: none PHQ 01/07/2018 11/18/2018 01/23/2019 PHQ-9 Total Score 11 7 3 Q9: Thoughts of better off /self-harm past 2 weeks Not at all Not at all Not at all MORENA-7 SCORE 08/10/2014 07/25/2016 Total Score 6 - Total Score - 5 Suicide Assessment Five-step Evaluation and Treatment (SAFE-T) ?? How many servings of fruits and vegetables do you eat daily? 2-3 ?? On average, how many sweetened beverages do you drink each day (soda, juice, sweet tea, etc)? 0 ?? How many days per week do you miss taking your medication? 0 Patient Active Problem List Diagnosis ??? Tobacco use disorder ??? Essential hypertension ??? Obesity ??? ADD (attention deficit disorder) ??? CARDIOVASCULAR SCREENING; LDL GOAL LESS THAN 160 ??? Major depression, recurrent (H) ??? Controlled substance agreement signed ??? Gastroesophageal reflux disease with esophagitis ??? Obesity (BMI 35.0-39.9) with comorbidity (H) Current Outpatient Medications Medication Sig Dispense Refill ??? albuterol (PROAIR HFA/PROVENTIL HFA/VENTOLIN HFA) 108 (90 Base) MCG/ACT inhaler Inhale 2 puffs into the lungs every 6 hours as needed for shortness of breath / dyspnea or wheezing 1 Inhaler 0 ??? FLUoxetine (PROZAC) 40 MG capsule TAKE 1 CAPSULE BY MOUTH DAILY 90 capsule 1 ??? lisdexamfetamine (VYVANSE) 50 MG capsule Take 1 capsule (50 mg) by mouth every morning 30 capsule 0 ??? lisinopril-hydrochlorothiazide (PRINZIDE/ZESTORETIC) 10-12.5 MG tablet TAKE 1 TABLET BY MOUTH DAILY 90 tablet 0 ??? predniSONE (DELTASONE) 20 MG tablet Take two tablets (= 40mg) each day for 5 (five) days 10 tablet 0 ??? VITAMIN D, CHOLECALCIFEROL, PO Take by mouth as needed Social History Tobacco Use ??? Smoking status: Former Smoker Types: Cigarettes Last attempt to quit: 05/10/2018 Years since quittin.6 ??? Smokeless tobacco: Never Used ??? Tobacco comment: 3/4 PPD- Substance Use Topics ??? Alcohol use: Yes Comment: ocassional 3-4 drinks per month ??? Drug use: No Comment: none Reviewed and updated as needed this visit by Provider Review of Systems No fever, chills, sore throat, rhinorrhea, postnasal drainage, sinus pain, chest pain Objective BP 134/84 (BP Location: Right arm, Patient Position: Sitting, Cuff Size: Adult Large) Pulse 88 Temp 98.2 ??F (36.8 ??C) (Oral) Resp 18 Ht 1.651 m (5' 5) Wt 94.6 kg (208 lb 8 oz) SpO2 96% BMI 34.70 kg/m?? Body mass index is 34.7 kg/m??. Physical Exam Lungs: no wheezes or crackles on normal expiration, few wheezes on forced expiration Assessment & Plan 1. Acute bronchospasm Reassured her exam is improving, likely viral. Finish steroid, use inhaler qid for now. Call for anyworsening, go ahead with omeprazole in case reflux is related 2. Attention deficit disorder, unspecified hyperactivity presence Improving on Vyvanse, continue med, CSA done 3. Mild episode of recurrent major depressive disorder (H) stable 4. Essential hypertension stable Return in about 2 months (around 03/16/2019) for Physical Exam. Francia Nair MD [facility] documented in this encounter Plan of Treatment Not on filedocumented as of this encounter Visit Diagnoses Diagnosis Acute bronchospasm - Primary Attention deficit disorder, unspecified hyperactivity presence Mild episode of recurrent major depressi ve disorder (H) Essential hypertension Unspecified essential hypertension documented in this encounter Additional Health Concerns Assessment Noted Time PHQ-9 Depression Total Score: 3 01/23/2019 9:19 PM CDT documented as of this encounter Care Teams Legislative Director Relationship Specialty Start Date End Date Francia Nair MD PCP - General Internal Medicine 01/28/13 [address] [place] [address] [phone] Francia Nair MD Assigned PCP 01/07/13 [address] [place] [phone] documented as of this encounter
--- OUTSIDE RECORDS SUMMARY | 2022-01-30 11:37 | XMS_ITS | Encounter Summary ---
:1960 Author Organization [facility] Address [address] [place] [address] Care Team Providers Name Role Phone Francia Nair MD Primary Care Provider Francia Nair MD Unavailable Encounter Details Date Type Department Care Team Description 01/11/2019 Travel Social History Tobacco Use Types Packs/Day [...] How often do you attend congregation or sikhism Never 08/12/2021 services? Do you [...] Noted Time PHQ-9 Depression Total Score: 7 11/18/2018 3:42 PM CDT documented as of this encounter Care Teams Drawbench Operator Helper Relationship Specialty Start Date End Date Francia Nair MD PCP - General Internal Medicine 01/28/13 [address] [place], [place] [phone] Francia Nair MD Assigned PCP 01/07/13 [address] [place] [address] [phone] documented as of this encounter
--- OUTSIDE RECORDS SUMMARY | 2022-01-30 11:37 | XMS_ITS | Encounter Summary ---
:1960 Author Organization [facility] Address [address] [place] [address] Care Team Providers Name Role Phone Francia Nair MD Primary Care Provider Francia Nair MD Unavailable Francia Nair MD Unavailable Encounter Details Date Type Department Care Team Description 06/18/2018 Travel Social History Tobacco Use Types Packs/Day [...] 08/12/2021 relatives? How often do you attend shinto or sabianist Never 08/12/2021 services? Do you belong to any clubs or organizations such as Yes 08/12/2021 shinto groups, unions, fraternal or athletic groups, or [...] documented as of this encounter Care Teams Knockdown Worker Relationship Specialty Start Date End Date Francia Nair MD PCP - General Internal Medicine 01/28/13 [address] [place] [phone] Francia Nair MD PCP - Assigned PCP 01/07/13 06/29/18 [address] [place] [phone] Francia Nair MD Assigned PCP 01/07/13 [address] [place] [address] [phone] documented as of this encounter
--- OUTSIDE RECORDS SUMMARY | 2022-01-30 11:37 | XMS_ITS | Encounter Summary ---
:1960 Author Organization [place] Address [address] [place] [address]. [place] [address] Care Team Providers Name Role Phone Francia Nair MD Primary Care Provider Francia Nair MD Unavailable Reason for Visit Reason Comments Shortness of Breath Encounter Details Date Type Department Care Team Description 01/11/2019 Emergency [facility] Uziel Montes De Oca MD Bronchospasm; [facility] Emergency Dep [facility] Laryngitis; [address] [place] QT prolongation; [place], [place] [address] Hypokalemia [id number] [place], [place] [id number] (Wo rk) Social History Tobacco Use Types [...] 08/12/2021 relatives? How often do you attend sabianism or druze Never 08/12/2021 services? Do you belong to any clubs or organizations such as Yes 08/12/2021 sabianism groups, unions, fraternal or athletic groups, or [...] Sign Reading Time Taken Comments Blood Pressure 125/76 01/11/2019 9:45 PM CDT Pulse 97 01/11/2019 7:16 PM CDT Temperature 36.8 ??C (98.2 ??F) 01/11/2019 7:16 PM CDT Respiratory Rate 18 01/11/2019 7:16 PM CDT Oxygen Saturation 100% 01/11/2019 9:15 PM CDT Inhaled Oxygen Concentration - - Weight - - Height - - Body Mass Index - - documented in this encounter Discharge Instructions Discharge InstructionsHiram Montes De Oca MD - 01/11/2019 9:56 PM CDT Return for worsening trouble breathing, chest pains, new concerns. Follow up in clinic. Discharge Instructions Sore Throat You were seen today for a sore throat. Most (>80%) sore throats are caused by a virus. Antibiotics do not help with viral infections, but you can fight off the virus on your own. In this case, your sore throat would be treated with medications for your pain and fever. Strep throat is a kind of sore throat caused by Group A streptococcus bacteria. This type of sore throat is treated with antibiotics. If you had a rapid test done today for strep throat and it did not show infection, a culture is done in some cases. The culture can take several days to complete. If the culture shows you have strep throat, we will call you and get you a prescription for antibiotics. We will not contact you with a negative culture result. Generally, every Emergency Department visit should have a follow-up clinic visit with either a primary or a specialty clinic/provider. Please follow-up as instructed by your emergency provider today. Return to the Emergency Department if: If you have difficulty breathing. If you are drooling because you are unable to swallow. You become dehydrated due to difficulty drinking. Signs of dehydration include weakness, dry mouth, and urinating less than 3 times per day. If you develop swelling of the neck or tongue. If you develop a high fever with either severe or unusual headache or stiff neck. Treatment: Pain relief -- Non-prescription pain medications, such as Tylenol?? (acetaminophen) or Motrin??, Advil?? (ibuprofen) are usually recommended for pain. Do not use a medicine that you are allergic to, orif your provider has told you not to use it. Soft or liquid diet. Concentrate on liquids to keep yourself hydrated. Cold liquids (popsicles, ice cream, etc.) may feel good on your throat. If you were given a prescription for [...] if there is anything that worries you. 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) FLUoxetine (PROZAC) 40 MG TAKE 1 CAPSULE BY 90 capsule 1 01/201903/15/2019 capsuleIndications: Mild MOUTH DAILY episode of recurrent major depressive disorder (H) lisdexamfetamine (VYVANSE) Take 1 capsule (50 30 capsule 0 0 01/06/2019 01/21/2019 50 MG capsuleIndications: mg) by mouth every Attention deficit morning disorder, unspecified hyperactivity presence lisinopril-hydrochlorothia TAKE 1 TABLET BY 90 tablet 0 03/15/2019 zide (PRINZIDE/ZESTORETIC) MOUTH DAILY 10-12.5 MG tabletIndications: Essential hypertension predniSONE (DELTASONE) 20 Take two tablets 10 tablet 0 12/2607/26/2019 MG tablet (= 40mg) each day for 5 (five) days VITAMIN D, Take by mouth as 0 10/19/19 21 CHOLECALCIFEROL, PO needed documented as of this encounter ED Notes Chinmay Walker RN - 01/11/2019 7:15 PM CDT Pt c/o shortness of breath for 3-4 days. Pt was unable to be active over weekend due to shortness ofbreath, it gets worse with activity. Also c/o mid sternal chest worse with deep breath. Hiram Montes De Oca MD - 01/11/2019 7:08 PM CDT History Chief Complaint: Shortness of Breath The history is provided by the patient. Robbie Miller is a 58 year old female with a history of hypertension who presents to the emergency department today for evaluation of shortness of breath. The patient reports she's been experiencing the shortness of breath with some occasional wheezing and chest pain for the past week or so. She also notes her voice has been raspy. Her symptoms are exacerbated by exercise and speaking. The patient reports she started taking Vyvanse on 01/08/2019, and that her shortness of breath has increasedsince then. The patient denies cough, fever, vomiting, diarrhea, trouble swallowing, or new leg swelling. No history of asthma or COPD, diabetes, and she quit smoking in March of last year. Patient denies immobilization for >3 days or surgery within the previous 4 weeks, history of DVT or PE, hemoptysis, malignancy with treatment within previous 6 months or palliative therapy, or exogenous estrogen use. Allergies: Varenicline Medications: Wellbutrin Prozac Vyvanse Lisinopril Vitamin D Past Medical History: Hypertension High cholesterol ADD Depression GERD Obesity Past Surgical History: SBO with 3' resected Hysterectomy, ALESSANDRO Family History: Heart disease- father Heart failure- mother Social History: The patient was accompanied to the ED by her . Smoking Status: Former smoker, quit in March of 2018 Smokeless Tobacco: Never Used Alcohol Use: Positive Drug Use: Negative Marital Status: Review of Systems Constitutional: Negative for fever. HENT: Positive for voice change. Negative for trouble swallowing. Respiratory: Positive for shortness of breath and wheezing. Negative for cough. Cardiovascular: Positive for chest pain. Negative for leg swelling. Gastrointestinal: Negative for diarrhea and vomiting. All other systems reviewed and are negative. Physical Exam Patient Vitals for the past 24 hrs: BP Temp Temp src Pulse Heart Rate Resp SpO2 01/11/192114 -- -- -- -- -- -- 100 % 01/11/192014 -- -- -- -- -- -- 99 % 01/11/191999 126/87 -- -- -- -- -- -- 01/11/191915 (!) 153/95 98.2 ??F (36.8 ??C) Oral 97 97 18 100 % Physical Exam VS: Reviewed per above HENT: Mucous membranes moist. Uvula midline, no tonsillar hypertrophy nor asymmetry. Tolerating secretions, normal phonation. No nuchal rigidity. EYES: sclera anicteric CV: Rate as noted, regular rhythm. RESP: Effort normal. Mild expiratory wheezing. GI: no tenderness/rebound/guarding, not distended. NEURO: Alert, moving all extremities MSK: No deformity of the extremities SKIN: Warm and dry Emergency Department Course ECG: ECG taken at 1922, ECG read at 1924 Normal sinus rhythm Specific ST and T wave abnormality Prolonged QT Rate 88 bpm. AR interval 142. QRS duration 92. QT/QTc 424/513. P-R-T axes 65 20 99. ECG taken at 2050, ECG read at 2054 Normal sinus rhythm Prolonged QT Abnormal ECG Rate 82 bpm. AR interval 146. QRS duration 86. QT/QTc 412/481. P-R-T axes 63 13 77. Compared to ECG taken at 1922, QT not as long. Imaging: Radiology findings were communicated with the patient and family who voiced understanding of the findings. XR, Chest, 2 Views IMPRESSION: Degenerative change. Lungs clear. Heart and central vessels unremarkable. Reading per radiology Laboratory: Laboratory findings were communicated with the patient and family who voiced understanding of the findings. CBC: AWNL (WBC 7.3, HGB 12.4, PLT 282) BMP: Glucose 136 (H). O/w WNL (Creatinine 0.71) Troponin (Collected 2010): <0.015 Interventions: 2101 DuoNeb 6 mL Nebulization 2117 Prednisone 60 mg PO 2117 Potassium Chloride 40 mEq PO Emergency Department Course: 1922 An ECG was performed, results above. 2009 IV was inserted and blood was drawn for laboratory testing, results above. 2014 Nursing notes and vitals reviewed. 2120 The patient was sent for a chest x-ray while in the emergency department, results above. 2037 I performed an exam of the patient as documented above. 2050 An ECG was performed, results above. 2134 Patient was rechecked and updated. Findings and plan explained to the Patient. Patient discharged home with instructions regarding supportive care, medications, and reasons to return. The importance of close follow-up was reviewed. The patient was prescribed Prednisone and an Albuterol Inhaler. I personally reviewed the laboratory and imaging results with the Patient and answered all related questions prior to discharge. Impression & Plan Medical Decision Making: Patient presents to the ER for evaluation of cough, shortness of breath and wheezing and hoarse voice. Vital signs within normal limits. Exam with mild expiratory wheezing bilaterally. No exam signs ofPTA, RPA, epiglottitis, meningitis. X-ray without pneumonia, pulmonary edema, pneumothorax. Her symptoms did improve after steroids and DuoNeb. Given constellation of symptoms, I do suspect bronchospasm with possible underlying viral illness. ECG did not reveal acute signs of ischemia but there was QTprolongation that was noted incidentally. Troponin negative. Doubt ACS based on hx and labs. Pt was also incidentally mildly hypokalemic at 3.1 and was replaced with potassium. I referred her to her primary care physician to discuss necessity of any of her medications that could be contributing to QT prolongation. She was also discharged with inhaler and prednisone burst. I did consider PE although aside from age she does not have significant PE risk factors. Given response to interventions here, will defer further PE evaluation at this time. Close return precautions discussed prior to discharge. Diagnosis: ICD-10-CM 1. Bronchospasm J98.01 2. Laryngitis J04.0 3. QT prolongation R94.31 4. Hypokalemia E87.6 Disposition: The patient is discharged to home. Discharge Medications: New Prescriptions ALBUTEROL (PROAIR HFA/PROVENTIL HFA/VENTOLIN HFA) 108 (90 BASE) MCG/ACT INHALER Inhale 2 puffs intothe lungs every 6 hours as needed for shortness of breath / dyspnea or wheezing PREDNISONE (DELTASONE) 20 MG TABLET Take two tablets (= 40mg) each day for 5 (five) days Scribe Disclosure: IPatrica, am serving as a scribe at 8:39 PM on 01/11/2019 to document services personally performed by Hiram Montes De Oca MD based on my observations and the provider's statements to me. 01/11/2019 [facility] EMERGENCY DEPARTMENT Hiram Montes De Oca MD 01/12/19 0014 documented in this encounter Plan of Treatment Not on filedocumented as of this encounter Procedures Procedure Name Priority Date/Time Associated Comments Diagnosis EKG 12-LEAD, TRACING STAT 01/11/2019 8:51 PM R esults for this ONLY CDT procedure are i n the results section. XR CHEST 2 VIEWS STAT 01/11/2019 8:24 PM Resul ts for this CDT procedure are i n the results section. CBC WITH PLATELETS & STAT 01/11/2019 8:11 PM R esults for this DIFFERENTIAL CDT procedure are i n the results section. TROPONIN I STAT 01/11/2019 8:11 PM Results f or this CDT procedure are i n the results section. BASIC METABOLIC PANEL STAT 01/11/2019 8:11 PM Results for this CDT procedure are i n the results section. EKG 12-LEAD, TRACING STAT 01/11/2019 7:23 PM R esults for this ONLY CDT procedure are i n the results section. documented in this encounter Results EKG 12 lead (01/11/2019 8:51 PM CDT) [facility] Method Time Signature Interpretation ECG Click View RADIOLOGY Image link RESULTS to view waveform and result Specimen (Source) Anatomical Collection Method Collection Time Re ceived Time Location / / Volume Laterality 01/11/2019 8:51 PM CDT Hiram Montes De Oca MD ECG ORDERABLES Performing Organization Address City/State/ZIP Code Phon e Number RADIOLOGY RESULTS XR Chest 2 Views (01/11/2019 8:24 PM CDT) Anatomical Region Laterality Modality Chest Computed Radiography Specimen (Source) Anatomical Collection Method Collection Time Re ceived Time Location / / Volume Laterality 01/11/2019 8:21 PM CDT Impressions 01/11/2019 8:28 PM CDT IMPRESSION: Degenerative change. Lungs c lear. Heart and central vessels unremarkable. Narrative 01/11/2019 8:28 PM CDT EXAM: XR CHEST 2 VW LOCATION: [facility] DATE/TIME: 01/11/2019 8:21 PM INDICATION: Shortness of breath COMPARISON: None Procedure Note Vinnie Cruz MD - 01/11/2019F ormatting of this note might be different from the original. EXAM: XR CHEST 2 VW LOCATION: [facility] DATE/TIME: 01/11/2019 8:21 PM INDICATION: Shortness of breath COMPARISON: None IMPRESSION: Degenerative change. Lungs c lear. Heart and central vessels unremarkable. Hiram Montes De Oca MD IMG DIAGNOSTIC IMAGING ORDER GIULIA Troponin I (01/11/2019 8:11 PM CDT) athologist Signature Troponin I ES <0.015 0.000 - 01/11/2019 [place] 0.045 ug/L 8:39 PM CDT [facility] Comment: The 99th percentile for upper reference range is 0.045 ug/L. ??Troponin values in the range of 0.045 - 0.120 ug/L may b e associated with risks of adverse clinical events. Specimen Anatomical Collection Method Collection Time Receive d Time (Source) Location / / Volume Laterality Blood specimen 01/11/2019 8:11 PM 019 8:16 (specimen) CDT PM CDT Hiram Montes De Oca MD LAB - BLOOD ORDERABLES Performing Organization Address City/State/ZIP Code Phon e Number [facility] [address] [place], [place] [address] [phone] [place] [address] [address] [phone] (ABNORMAL) Basic metabolic panel (01/11/2019 8:11 PM CDT) athologist Signature Sodium 140 133 - 144 01/11/2019 [place] mmol/L 8:30 PM [facility] Potassium 3.1 (L) 3.4 - 5.3 01/11/2019 [place] mmol/L 8:30 PM [facility] Chloride 107 94 - 109 01/11/2019 [place] mmol/L 8:30 PM [facility] Carbon Dioxide 27 20 - 32 01/11/2019 [place] mmol/L 8:35 PM [facility] Anion Gap 6 3 - 14 01/11/2019 [place] mmol/L 8:35 PM [facility] Glucose 136 (H) 70 - 99 01/11/2019 [place] mg/dL 8:35 PM [facility] Urea Nitrogen 12 7 - 30 01/11/2019 [place] mg/dL 8:35 PM [facility] Creatinine 0.71 0.52 - 01/11/2019 [facility] 1.04 mg/dL 8:35 PM [facility] GFR Estimate >90 >60 01/11/2019 [place] mL/min/{1. 8:35 PM [facility] 73_m2} [facility] Comment: Non GFR Calc Starting 04/13/2018, serum creatinine ba sed estimated GFR (eGFR) will be calculated using the Chronic Kidney Dise [facility] Epidemiology Collaboration (CKD-EPI) equation. GFR Estimate If >90 >60 mL/min/{1.73_m2} 01/11/2019 8: 35 PM [facility] Comment: GFR Calc Starting 04/13/2018, serum creatinine ba sed estimated GFR (eGFR) will be calculated using the Chronic Kidney Dise [facility] Epidemiology Collaboration (CKD-EPI) equation. Calcium 9.0 8.5 - 10.1 mg/dL 01/11/2019 8:35 PM [facility] Specimen Anatomical Collection Method Collection Time Receive d Time (Source) Location / / Volume Laterality Blood specimen 01/11/2019 8:11 PM 019 8:16 (specimen) CDT PM CDT Hiram Montes De Oca MD LAB - BLOOD ORDERABLES Performing Organization Address City/State/ZIP Code Phon e Number [facility] [address] [place], [place] [address] [facility] [address] [place], [place] [address] [phone] CBC with platelets differential (01/11/2019 8:11 PM CDT) [facility] Method Time Signature WBC 7.3 4.0 - 01/11/2019 [facility] 11.0 8:19 PM [facility] 10e9/L [facility] RBC Count 3.95 3.8 - 5.2 01/11/2019 [facility] 10e12/L 8:19 PM [facility] Hemoglobin 12.4 11.7 - 01/11/2019 [facility] 15.7 g/dL 8:19 PM [facility] Hematocrit 37.5 35.0 - 01/11/2019 [facility] 47.0 % 8:19 PM [facility] MCV 95 78 - 100 01/11/2019 [facility] fl 8:19 PM [facility] MCH 31.4 26.5 - 01/11/2019 [facility] 33.0 pg 8:19 PM [facility] MCHC 33.1 31.5 - 01/11/2019 [facility] 36.5 g/dL 8:19 PM [facility] RDW 12.9 10.0 - 01/11/2019 [facility] 15.0 % 8:19 PM [facility] Platelet Count 282 150 - 450 01/11/2019 [facility] 10e9/L 8:19 PM [facility] Diff Method Automated 01/11/2019 [facility] Method 8:19 PM [facility] % Neutrophils 52.0 % 01/11/2019 [facility] 8:19 PM [facility] % Lymphocytes 34.6 % 01/11/2019 [facility] 8:19 PM [facility] % Monocytes 9.5 % 01/11/2019 [facility] 8:19 PM [facility] % Eosinophils 2.7 % 01/11/2019 [facility] 8:19 PM [facility] % Basophils 0.7 % 01/11/2019 [facility] 8:19 PM [facility] % Immature 0.5 % 01/11/2019 [facility] Granulocytes 8:19 PM [facility] Nucleated RBCs 0 0 /100 01/11/2019 [facility] 8:19 PM [facility] Absolute 3.8 1.6 - 8.3 01/11/2019 [facility] Neutrophil 10e9/L 8:19 PM [facility] Absolute 2.5 0.8 - 5.3 01/11/2019 [facility] Lymphocytes 10e9/L 8:19 PM [facility] Absolute 0.7 0.0 - 1.3 01/11/2019 [facility] Monocytes 10e9/L 8:19 PM [facility] Absolute 0.2 0.0 - 0.7 01/11/2019 [facility] Eosinophils 10e9/L 8:19 PM [facility] Absolute 0.1 0.0 - 0.2 01/11/2019 [facility] Basophils 10e9/L 8:19 PM [facility] Abs Immature 0.0 0 - 0.4 01/11/2019 [facility] Granulocytes 10e9/L 8:19 PM [facility] Absolute 0.0 01/11/2019 [facility] Nucleated RBC 8:19 PM [facility] Specimen Anatomical Collection Method Collection Time Receive d Time (Source) Location / / Volume Laterality Blood specimen 01/11/2019 8:11 PM 019 8:16 (specimen) CDT PM CDT Hiram Montes De Oca MD LAB - BLOOD ORDERABLES Performing Organization Address City/State/ZIP [facility] Phon e Number [facility] [address] [address] [facility] [address] [phone] EKG 12 lead (01/11/2019 7:23 PM CDT) [facility] Method Time Signature Interpretation ECG Click View RADIOLOGY Image link RESULTS to view waveform and result Specimen (Source) Anatomical Collection Method Collection Time Re ceived Time Location / / Volume Laterality 01/11/2019 7:23 PM CDT Hiram Montes De Oca MD ECG ORDERABLES Performing Organization Address City/[facility]/ZIP [facility] Phon e Number RADIOLOGY RESULTS documented in this encounter Visit Diagnoses Diagnosis Bronchospasm Acute bronchospasm Laryngitis Acute laryngitis, without mention of obs truction QT prolongation Nonspecific abnormal electrocardiogram ( ECG) (EKG) Hypokalemia Hypopotassemia documented in this encounter Administered Medications Inactive Administered Medications - up to 3 most recent administrations Medication Order MAR Action Action Date Dose Rate Site ipratropium - albuterol 0.5 mg/2.5 Given 01/11/2019 9:02 PM CDT 6 mLs mg/3 mL (DUONEB) neb solution 6 mL 6 mL, Nebulization, ONCE, On Thu01/11/19 at 2038, For 1 dose potassium chloride (KLOR-CON) Packet 40 mEq Given 01/11/2019 9:18 PM CDT 40 mEq 40 mEq, Oral, ONCE, On Thu01/11/19 at 2054, For 1 dose, Dissolve packet contents in 4-8 ounces of cold water or juice. predniSONE (DELTASONE) tablet 60 mg Given 01/11/2019 9:18 PM CDT 60 mg 60 mg, Oral, ONCE, On Thu01/11/19 at 2038, For 1 dose documented in this encounter Active and Recently Administered Medications Times are shown in CDT. Scheduled Medication Order 01/09/2019 01/10/2019 01/11/2019 ipratropium - albuterol 0.5 mg/2.5 mg/3 mL (DUONEB) neb solution 6 mL (COMPLETED) 2101 (Given - Provid er: Michael Zapata RN) 6 mL, Nebulization, ONCE, Thu01/11/19 at 2038, For 1 dose potassium chloride (KLOR-CON) Packet 40 mEq (COMPLETED) 2117 (Given - Provider: Michael Zapata RN) 40 mEq, Oral, ONCE, Thu01/11/19 at 2054, For 1 dose, Dissolve packet contents in 4-8 ounces of cold water or juice. 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
--- OUTSIDE RECORDS SUMMARY | 2022-01-30 11:37 | XMS_ITS | Encounter Summary ---
:1960 Author Organization [facility] Address [address] [place] [address]. [place] [address] Care Team Providers Name Role Phone Francia Nair MD Primary Care Provider Francia Nair MD Unavailable Francia Nair MD Unavailable Reason for Referral Diagnostic Imaging CT Scan - Closed Specialty Diagnoses / Procedures Referred By Contact Refer red To Contact Radiology. Diagnoses LLQ abdominal pain Miguelina Moody MD Ct Scan [facility] Procedures CT Abdomen Pelvis w Contrast [address] [facility] [id number] [address] [facility] [address] [place] [address] [place] [address] Phone: Fax: Referral ID Status Reason Start Date Expiration Date Visits Requ ested Visits Authorized [id number] Closed 06/14/2018 06/14/2019 1 1 ING MACHINE OFFBEARER Reason for Visit Reason Comments Back Pain lower back pain into pelvis Encounter Details Date Type Department Care Team Description 06/14/2018 Office Visit [facility] Miguelina Moody, LLQ abdominal pain (Primary Dx); Clinic [facility] SCHAEFER Left-sided low back pain with left-sided sciatica, unspecified chronicity [address] [place], [place] [address] [place], [place] [phone] (Wo rk) Social History Tobacco Use Types Packs/Day Years Used Date Former Smoker Cigarettes Quit: 05/10/19 Smokeless Tobacco: Never Used Tobacco Cessation: Counseling Given: No Comments: 3/ PPD- Alcohol Use Standard Drinks/Week [...] often do you attend jehovah's witness or temple Never 08/12/2021 services? Do you [...] Sign Reading Time Taken Comments Blood Pressure 138/84 06/14/2018 8:31 AM CUTTING MACHINE OFFBEARER Pulse 83 06/14/2018 8:31 AM CUTTING MACHINE OFFBEARER Temperature 36.8 ??C (98.3 ??F) 06/14/2018 8:31 AM CUTTING MACHINE OFFBEARER Respiratory Rate 18 06/14/2018 8:31 AM CUTTING MACHINE OFFBEARER Oxygen Saturation 96% 06/14/2018 8:31 AM CUTTING MACHINE OFFBEARER Inhaled Oxygen Concentration - - Weight 95.1 kg (209 lb 11.2 oz) 06/14/2018 8:31 AM CUTTING MACHINE OFFBEARER Height 165.1 cm (5' 5) 06/14/2018 8:31 AM CUTTING MACHINE OFFBEARER Body Mass Index 34.9 06/14/2018 8:31 AM CUTTING MACHINE OFFBEARER documented in this encounter Progress Notes Miguelina Moody MD - 06/14/2018 8:40 AM CST SUBJECTIVE: Robbie Miller is a 58 year old female who presents to clinic today for the following health issues: Patient here for left lower back pain that run to the pelvis HPI: Started several months ago in there left lower back. Worse with standing or lifting better with sitting or laying. Sometimes will get pain down the back of the leg. Denies any weakness, numbness or tingling. She also has started to get left lower quadrant abdominal pain that is sharp. Does not seem to have a relationship to the low back pain. Might get better after a bowel movement but she is not sure. Otherwise no aggravating or alleviating factors. She has had an abdominal hysterectomy she thinks they left her ovaries. She is chronically mildly .constipated. Has a bowel movement every day but she oftenhas to strain very hard. She has never had diverticulitis. Denies any fever chills or night sweats. No blood in stool. Problem list and histories reviewed & adjusted, as indicated. Additional history: as documented BP Readings from Last 3 Encounters: 06/14/18 138/84 05/20/18 134/80 01/20/18 138/80 Wt Readings from Last 3 Encounters: 06/14/18 95.1 kg (209 lb 11.2 oz) 05/20/18 95.3 kg (210 lb 1.6 oz) 01/20/18 92.5 kg (204 lb) Reviewed and updated as needed this visit by clinical staff Allergies Meds Reviewed and updated as needed this visit by Provider ROS: Constitutional, HEENT, cardiovascular, pulmonary, GI, , musculoskeletal, neuro, skin, endocrine and psych systems are negative, except as otherwise noted. OBJECTIVE: BP 138/84 (BP Location: Left arm, Patient Position: Sitting, Cuff Size: Adult Large) Pulse 83 Temp 98.3 ??F (36.8 ??C) (Oral) Resp 18 Ht 1.651 m (5' 5) Wt 95.1 kg (209 lb 11.2 oz) SpO2 96% BMI 34.90 kg/m?? Body mass index is 34.9 kg/m??. GENERAL: healthy, alert and no distress NECK: no adenopathy, no asymmetry, masses, or scars and thyroid normal to palpation RESP: lungs clear to auscultation - no rales, rhonchi or wheezes CV: regular rate and rhythm, normal S1 S2, no S3 or S4, no murmur, click or rub, no peripheral edemaand peripheral pulses strong ABDOMEN: soft, nontender, no hepatosplenomegaly, no masses and bowel sounds normal MS: no gross musculoskeletal defects noted, no edema, back good range of motion no palpable tenderness NEURO: Normal strength and tone, mentation intact and speech normal, Reflexes are full and symmetric. Straight leg-raise is negative bilaterally. PSYCH: mentation appears normal, affect normal/bright ASSESSMENT/PLAN: 1. LLQ abdominal pain Could be constipation but has been going on long enough and seems too sharp for simple constipation pain. Will check - CT Abdomen Pelvis w Contrast; Future - Basic metabolic panel (Ca, Cl, CO2, Creat, Gluc, K, Na, BUN) 2. Left-sided low back pain with left-sided sciatica, unspecified chronicity Will refer to PT, she wanted to wait until CT results were known before order placed. Follow up in 6 months Miguelina Moody MD [facility] ING MACHINE OFFBEARER documented in this encounter Nursing Notes Vero Birch - 06/14/2018 8:40 AM CST BP 160/84 (BP Location: Left arm, Patient Position: Sitting, Cuff Size: Adult Large) Pulse 83 Temp 98.3 ??F (36.8 ??C) (Oral) Resp 18 Ht 1.651 m (5' 5) Wt 95.1 kg (209 lb 11.2 oz) SpO2 96% BMI 34.90 kg/m?? Patient here for lower left back pain that runs to the pelvis. ING MACHINE OFFBEARER documented in this encounter Plan of Treatment Not on filedocumented as of this encounter Procedures Procedure Name Priority Date/Time Associated Diagnosis Comme nts BASIC METABOLIC Routine 06/14/2018 9:16 AM LLQ abdominal pain Results for this PANEL CUTTING MACHINE OFFBEARER procedure are i n the results section. documented in this encounter Results CT Abdomen Pelvis w Contrast (06/18/2018 2:46 PM CUTTING MACHINE OFFBEARER) Anatomical Region Laterality Modality Abdomen/Pelvis, SUBRAD CT BODY, UMP CT ABDOMEN PELVIS, Computed Tomography RAD CT Specimen (Source) Anatomical Location Collection Method / Collectio n Time Received Time / Laterality Volume Impressions 06/18/2018 3:22 PM CUTTING MACHINE OFFBEARER IMPRESSION: 1. No cause for abdominal pain demonstra panfilo. 2. Fatty infiltration of liver. LASHAUN BOLTON MD Narrative 06/18/2018 3:22 [address] MACHINE OFFBEARER CT ABDOMEN AND PELVIS WITH CONTRAST ?? 06/18/2018 2:46 PM HISTORY: Abdominal pain, diverticulitis suspected; left lower quadrant abdominal pain. TECHNIQUE: ?? 100mL Isovue-370. CT image s of the abdomen and pelvis following nonionic intravenous contrast. Radiation dose for this scan was reduced using automated exposure con trol, adjustment of the mA and/or kV according to patient size, or iterative reconstruction technique. COMPARISON: 05/07/2004 FINDINGS: ??There is diffuse decreased a ttenuation of the liver without focal lesion or biliary dilation. The ga llbladder, spleen, pancreas, and adrenal glands appear normal. Both k idneys appear normal. The appendix is normal. No abnormal bowel di stention, free air, or ascites. No sigmoid diverticulosis or di verticulitis. No abdominal or retroperitoneal lymphadenopathy. No pelv ic adenopathy, free fluid, or mass. Uterus is absent. Mild degenerativ e changes noted in the spine and at the pubic symphysis. Procedure Note Lashaun Bolton MD - 06/18/2018Forma tting of this note might be different from the original. CT ABDOMEN AND PELVIS WITH CONTRAST 06/18 2:46 PM HISTORY: Abdominal pain, diverticulitis suspected; left lower quadrant abdominal pain. TECHNIQUE: 100mL Isovue-370. CT images o f the abdomen and pelvis following nonionic intravenous contrast. Radiation dose for this scan was reduced using automated exposure con trol, adjustment of the mA and/or kV according to patient size, or iterative reconstruction technique. COMPARISON: 05/07/2004 FINDINGS: There is diffuse decreased att enuation of the liver without focal lesion or biliary dilation. The ga llbladder, spleen, pancreas, and adrenal glands appear normal. Both k idneys appear normal. The appendix is normal. No abnormal bowel di stention, free air, or ascites. No sigmoid diverticulosis or di verticulitis. No abdominal or retroperitoneal lymphadenopathy. No pelv ic adenopathy, free fluid, or mass. Uterus is absent. Mild degenerativ e changes noted in the spine and at the pubic symphysis. IMPRESSION: 1. No cause for abdominal pain demonstra panfilo. 2. Fatty infiltration of liver. LASHAUN BOLTON MD Miguelina Moody MD IMG CT ORDERABLES Basic metabolic panel (Ca, Cl, CO2, Creat, Gluc, K, Na, BUN) (06/14/2018 9:16 AM [facility]) P athologist Signature Sodium 141 133 - 144 06/15/2018 [facility] mmol/L 10:[address] [facility] Potassium 4.0 3.4 - 5.3 06/15/2018 [facility] mmol/L 10:[address] [facility] Chloride 107 94 - 109 06/15/2018 [facility] mmol/L 10:[address] [facility] Carbon Dioxide 24 20 - 32 06/15/2018 [facility] mmol/L 11:[address] [facility] Anion Gap 10 3 - 14 06/15/2018 [facility] mmol/L 11:[address] [facility] Glucose 97 70 - 99 06/15/2018 [facility] mg/dL 11:[address] [facility] Comment: Non Fasting Urea Nitrogen 13 7 - 30 mg/dL 06/15/2018 11:36 AM [facility] Creatinine 0.78 0.52 - 1.04 mg/dL 06/15/2018 11:36 AM [facility] GFR Estimate 83 >60 06/15/2018 11:36 AM [facility] mL/min/{1.73_m2} [facility][1] [place] Comment: Non GFR Calc Starting 04/13/2018, serum creatinine ba sed estimated GFR (eGFR) will be calculated using the Chronic Kidney Dise banner Epidemiology Collaboration (CKD-EPI) equation. GFR Estimate If >90 >60 mL/min/{1.73_m2} 06/15/2018 11 :36 AM [facility] Comment: GFR Calc Starting 04/13/2018, serum creatinine ba sed estimated GFR (eGFR) will be calculated using the Chronic Kidney Dise banner Epidemiology Collaboration (CKD-EPI) equation. Calcium 9.1 8.5 - 10.1 mg/dL 06/15/2018 11:36 AM [facility] Specimen Anatomical Collection Method Collection Time Receive d Time (Source) Location / / Volume Laterality Blood specimen 06/14/2018 9:16 AM 019 9:17 (specimen) CUTTING MACHINE OFFBEARER AM CUTTING MACHINE OFFBEARER Miguelina Moody MD LAB - BLOOD ORDERABLES Performing Organization Address City/State/ZIP Code Phon e Number [facility] [address] [place] [address] documented in this encounter Visit Diagnoses Diagnosis LLQ abdominal pain - Primary Abdominal pain, left lower quadrant Left-sided low back pain with left-sided sciatica, unspecified chronicity LLQ abdominal pain Abdominal pain, left lower quadrant documented in this encounter Additional Health Concerns Assessment Noted Time PHQ-9 Depression Total Score: 9 01/30/2022 7:03 AM CDT documented as of this encounter Care Teams Deputy General Counsel Relationship Specialty Start Date End Date Francia Nair MD PCP - General Internal Medicine 01/28/13 [address] [place] [id number] Francia Nair MD PCP - Assigned PCP 01/07/13 06/29/18 [address] [place] [id number] Francia Nair MD Assigned PCP 01/07/13 [address] [place] [id number] documented as of this encounter
--- OUTSIDE RECORDS SUMMARY | 2022-01-30 11:37 | XMS_ITS | Encounter Summary ---
:1960 Author Organization [facility] Address [address] [place] [id number] Care Team Providers Name Role Phone Francia Nair MD Primary Care Provider Francia Nair MD Unavailable Francia Nair MD Unavailable Reason for Referral Diagnostic Imaging MRI - Closed Specialty Diagnoses / Procedures Referred By Contact Refer red To Contact Radiology. Diagnoses Bilateral foot pain Achilles tendinitis of right lower extremity Gastrocnemius equinus, right Stress fracture, left foot, initial encounter for fracture Nohemy Gallardo DPM, Rh Mri Rscc Procedures MR Ankle Right w/o Contrast Podiatry/Foot and Ankle [address] [facility] [address] [place], [place] [id number] [place] [address] Referral ID Status Reason Start Date Expiration Date Visits Requ ested Visits Authorized [id number] Closed 01/20/2018 01/20/2019 1 1 iagnostic Imaging XR - Closed Specialty Diagnoses / Procedures Referred By Contact Refer red To Contact Diagnoses Bilateral foot pain Nohemy Gallardo DPM, Procedures XR Foot Bilateral G/E 3 Views Podiatry/Foot and Ankle Surgery [address] [place] [address] Referral ID Status Reason Start Date Expiration Date Visits Requ ested Visits Authorized [id number] Closed 01/20/2018 01/20/2019 1 1 Reason for Visit Reason Comments Pain Pain Encounter Details Date Type Department Care Team Description 01/20/2018 Office Visit [facility] [place], Nohemy Parker, Neel al foot pain (Primary Dx); [facility] [place] [facility], Podiatry/Foot Achilles tendinitis of right lower extremity; [address] [address] [facility] Gastrocnemius equinus, right; [address] [address] [address] Stress fracture, left foot, initial [place] [address] [facility] [address] [place], [place] [id number] Social History Tobacco Use Types Packs/Day Years Used Date Current Every Day Smoker Cigarettes Smokeless Tobacco: Never Used Tobacco Cessation: Ready to Quit: No; Co unseling Given: Yes Comments: 3/4 PPD Alcohol Use Standard Drinks/Week Comments Yes 0 (1 standard drink = 0.6 oz pure alcoho l) ocassional 3-4 drinks per week Alcohol Habits Answer Date Recorded How often do you have a drink containing 2-4 times a month 08/12/2021 alcohol? How many drinks containing alcohol do 1 or 2 you have on a typical day when you are drinking? How often do you have six or more drinks Never 08/12/2021 on one occasion? Comment: ocassional 3-4 drinks per week 6 Social Isolation Answer Date Recorded In a typical week, how many times do you talk on the Three t imes a week 08/12/2021 phone with family, friends, or neighbors? How often do you get together with friends or Once a week 08/12/2021 relatives? How often do you attend yarsani or caodaism Never 08/12/2021 services? Do you belong to [...] Sign Reading Time Taken Comments Blood Pressure 138/80 01/20/2018 4:36 PM CDT Pulse - - Temperature - - Respiratory Rate - - Oxygen Saturation - - Inhaled Oxygen Concentration - - Weight 92.5 kg (204 lb) 01/20/2018 4:36 PM CDT Height 165.1 cm (5' 5) 01/20/2018 4:36 PM CDT Body Mass Index 33.95 01/20/2018 4:36 PM CDT documented in this encounter Patient Instructions Patient InstructionsJim Hampton - 01/20/2018 4:30 PM CDT Thank you for choosing [facility]! [facility] SCHEDULE THURSDAY AM - [place] THURSDAY - [place] [address] [facility] [address] [place] [address] [place], [place] [id number] / FX [id number] / FX [phone] THURSDAY - [place] Thursday - [place] [address] [facility] [address] [facility] [address] [place] [address] [place] [address] / FX [id number] THURSDAY PM - [place] SCHEDULE SURGERY: [phone] BILLING QUESTIONS: [phone] [place] [address] AFTER HOURS: [phone] / FX [phone] APPOINTMENTS: [phone] [facility] ([facility]) [phone] Please call to schedule your MRI/CT/Ultrasound/Arthrogram appointment. The number is [phone]. R ankle MRI TOE & METATARSAL FRACTURES The structure of the foot is complex, consisting of bones, muscles, tendons, and other soft tissues.Of the 26 bones in the foot, 19 are toe bones (phalanges) and metatarsal bones (the long bones in the midfoot). Fractures of the toe and metatarsal bones are common and require evaluation by a specialist. A foot and ankle surgeon should be seen for proper diagnosis and treatment, even if initial treatment has been received in an emergency room. A fracture is a break in the bone. Fractures can be divided into two categories: traumatic fracturesand stress fractures. TRAUMATIC FRACTURES (also called acute fractures) are caused by a direct blow or impact, such as seriously stubbing your toe. Traumatic fractures can be displaced or non-displaced. If the fracture is displaced, the bone is broken in such a way that it has changed in position (dislocated). Signs and symptoms of a traumatic fracture include: You may hear a sound at the time of the break. ???Pinpoint pain?? (pain at the place of impact) at the time the fracture occurs and perhaps for a few hours later, but often the pain goes away after several hours. Crooked or abnormal appearance of the toe. Bruising and swelling the next day. It is not true that ???if you can walk on it, it???s not broken.?? Evaluation by a foot and ankle surgeon is always recommended. STRESS FRACTURES are tiny, hairline breaks that are usually caused by repetitive stress. Stress fractures often afflict athletes who, for example, too rapidly increase their running mileage. They can also be caused by an abnormal foot structure, deformities, or osteoporosis. Improper footwear may alsolead to stress fractures. Stress fractures should not be ignored. They require proper medical attention to heal correctly. Symptoms of stress fractures include: Pain with or after normal activity Pain that goes away when resting and then returns when standing or during activity ???Pinpoint pain?? (pain at the site of the fracture) when touched Swelling, but no bruising IMPROPER TREATMENT Some people say that ???the doctor can???t do anything for a broken bone in the foot.?? This is usually not true. In fact, if a fractured toe or metatarsal bone is not treated correctly, serious complications may develop. For example: A deformity in the bony architecture which may limit the ability to move the foot or cause difficulty in fitting shoes Arthritis, which may be caused by a fracture in a joint (the juncture where two bones meet), or may be a result of angular deformities that develop when a displaced fracture is severe or hasn???t been properly corrected Chronic pain and deformity Non-union, or failure to heal, can lead to subsequent surgery or chronic pain. PROPER TREATMENT FOR TOES Fractures of the toe bones are almost always traumatic fractures. Treatment for traumatic fractures depends on the break itself and may include these options: Rest. Sometimes rest is all that is needed to treat a traumatic fracture of the toe. Splinting. The toe may be fitted with a splint to keep it in a fixed position. Rigid or stiff-soled shoe. Wearing a stiff-soled shoe protects the toe and helps keep it properly positioned. ???Jassi taping?? the fractured toe to another toe is sometimes appropriate, but in other cases it may be harmful. Surgery. If the break is badly displaced or if the joint is affected, surgery may be necessary. Surgery often involves the use of fixation devices, such as pins. PROPER TREATMENT OF METATARSALS Breaks in the metatarsal bones may be either stress or traumatic fractures. Certain kinds of fractures of the metatarsal bones present unique challenges. For example, sometimes a fracture of the first metatarsal bone (behind the big toe) can lead to arthritis. Since the big toe is used so frequently and bears more weight than other toes, arthritis in that area can make it painful to walk, bend, or even stand. Another type of break, called a Reyes fracture, occurs at the base of the fifth metatarsal bone (behind the little toe). It is often misdiagnosed as an ankle sprain, and misdiagnosis can have serious consequences since sprains and fractures require different treatments. Your foot and ankle surgeon is an expert in correctly identifying these conditions as well as other problems of the foot. Treatment of metatarsal fractures depends on the type and extent of the fracture, and may include: Rest. Sometimes rest is the only treatment needed to promote healing of a stress or traumatic fracture of a metatarsal bone. Avoid the offending activity. Because stress fractures result from repetitive stress, it is important to avoid the activity that led to the fracture. Crutches or a wheelchair are sometimes required to offload weight from the foot to give it time to heal. Immobilization, casting, or rigid shoe. A stiff-soled shoe or other form of immobilization may be used to protect the fractured bone while it is healing. Surgery. Some traumatic fractures of the metatarsal bones require surgery, especially if the break is badly displaced. Follow-up care. Your foot and ankle surgeon will provide instructions for care following surgical ornon-surgical treatment. Physical therapy, exercises and rehabilitation may be included in a schedulefor return to normal activities. TENDONITIS Tendons are the strong fibrous portions ofmuscles that attach to bones and allow the muscle to move a joint when it contracts. Tendons are very strong because they have a lot of force exerted on them. Sometimes tendons can become painful because they have suffered an acute injury, in which too much force was exerted at one time, or an overuse injury, in which a normal force was exerted too frequentlyor over a prolonged period of time. As a result, there is damage to the tendon and its surrounding soft tissue structures and they become inflammed. Because tendons do not have a great blood supply, they do not heal rapidly and the inflammation can become chronic. Conservative treatment for tendinitis involves rest and anti-inflammatory measures. Ice is applied 15 minutes 2-3 times daily. Anti-inflammatory medications called NSAIDs (ibuprofen, example) can be taken provided they are used with caution, as they can lead to internal bleeding and increase the risk o fstroke and heart attack. Sometimes topical nitroglycerin is prescribed to help with pain. Often your doctor will use a special shoe or removable walking cast to immobilize the tendon, allowing it to heal without further damage from use. These devices are very useful in helping tendons heal, but they may slow you down or make you feel like your hip, knee, or back are out ofalignment. This is temporary and should go away once you are out ofthe immobilization. You should not use a walking cast when showering or driving. Another option is Platelet Rich Plasma injections. (Normally done with a Sports and Orthorapedic doctor. If conservative measures fail, your physician may need to surgically repair the tendon by removing any chronic inflammatory tissue and sewing it back together. Sometimes it is sewn to an adjacent tendon with similar function for support and sometimes it is lengthened. . Sometimes the bones around the tendon need to be realigned or reshaped to better support the tendon or prevent further damage. Your foot and ankle surgeon will discuss the specifics of your surgery with you, should you need it. Towel stretch: Sit on a hard surface with your injured leg stretched out in front of you. Loop a towel around your toes and the ball of your foot and pull the towel toward your body keeping your leg straight. Hold this position for 15 to 30 seconds and then relax. Repeat 3 times. Then push the towel away with the ball of your foot. Repeat 3 times. When you don't feel much of a stretch using the towel, you can start the standing calf stretch and the following exercises. Standing calf stretch: Stand facing a wall with your hands on the wall at about eye level. Keep yourinjured leg back with your heel on the floor. Keep the other leg forward with the knee bent. Turn your back foot slightly inward (as if you were pigeon-toed). Slowly lean into the wall until you feel astretch in the back of your calf. Hold the stretch for 15 to 30 seconds. Return to the starting position. Repeat 3 times. Do this exercise several times each day. Standing soleus stretch: Stand facing a wall with your hands on the wall at about chest height. Keepyour injured leg back with your heel on the floor. Keep the other leg forward with the knee bent. Turn your back foot slightly inward (as if you were pigeon-toed). Bend your back knee slightly and gently lean into the wall until you feel a stretch in the lower calf of your injured leg. Hold the stretch for 15 to 30 seconds. Return to the starting position. Repeat 3 times. Achilles stretch: Stand with the ball of one foot on a stair. Reach for the step below with your heel until you feel a stretch in the arch of your foot. Hold this position for 15 to 30 seconds and thenrelax. Repeat 3 times. Heel raise: Balance yourself while standing behind a chair or counter. Using the chair or counter asa support to help you, raise your body up onto your toes and hold for 5 seconds. Then slowly lower yourself down without holding onto the support. (It's OK to keep holding onto the support if you need to.) When this exercise becomes less painful, try lowering yourself down on the injured leg only. Repeat 15 times. Do 2 sets of 15. Rest 30 seconds between sets. Step-up: Stand with the foot of your injured leg on a support 3 to 5 inches high (like a small step or block of wood). Keep your other foot flat on the floor. Shift your weight onto the injured leg on the support. Straighten your injured leg as the other leg comes off the floor. Return to the startingposition by bending your injured leg and slowly lowering your uninjured leg back to the floor. Do 2 sets of 15. Resisted ankle eversion: Sit with both legs stretched out in front of you, with your feet about a shoulder's width apart. Tie a loop in one end of elastic tubing. Put the foot of your injured leg through the loop so that the tubing goes around the arch of that foot and wraps around the outside of the other foot. Hold onto the other end of the tubing with your hand to provide tension. Turn the foot ofyour injured leg up and out. Make sure you keep your other foot still so that it will allow the tubing to stretch as you move the foot of your injured leg. Return to the starting position. Do 2 sets of15. Balance and reach exercises: Stand next to a chair with your injured leg farther from the chair. Thechair will provide support if you need it. Stand on the foot of your injured leg and bend your knee slightly. Try to raise the arch of this foot while keeping your big toe on the floor. Keep your foot in this position. With the hand that is farther away from the chair, reach forward in front of you bybending at the waist. Avoid bending your knee any more as you do this. Repeat this 10 times. To makethe exercise more challenging, reach farther in front of you. Do 2 sets of 10. community engagement coordinator the same position as above. While keeping your arch height, reach the hand that is farther away from the chair across your body toward the chair. The farther you reach, the more challenging the exercise. Do 2 sets of 10. ?? Resisted ankle eversion: Sit with both legs stretched out in front of you, with your feet about ashoulder's width apart. Tie a loop in one end of elastic tubing. Put the foot of your injured leg through the loop so that the tubing goes around the arch of that foot and wraps around the outside of the other foot. Hold onto the other end of the tubing with your hand to provide tension. Turn the footof your injured leg up and out. Make sure you keep your other foot still so that it will allow the tubing to stretch as you move the foot of your injured leg. Return to the starting position. Do 2 setsof 15. If you have access to a wobble board, do the following exercises: Wobble board exercises: Stand on a wobble board with your feet shoulder width apart. Rock the board forwards and backwards 30 times, then side to side 30 times. Hold on to a chair if you need support. Rotate the wobble board around so that the edge of the board is in contact with the floor at all times. Do this 30 times in a clockwise and then a counterclockwise direction. Balance on the wobble board for as long as you can without letting the edges touch the floor. Try todo this for 2 minutes without touching the floor. Rotate the wobble board in clockwise and counterclockwise circles, but do not let the edge of the board touch the floor. When you have mastered exercises A through D, try repeating them while standing on just your injuredleg. After you are able to do these exercises on one leg, try to do them with your eyes closed. Make sureyou have something nearby to support you in case you lose your balance. Body Mass Index (BMI) Many things can cause foot and ankle problems. Foot structure, activity level, foot mechanics and injuries are common causes of pain. One very important issue that often goes unmentioned, is body weight. Extra weight can cause increased stress on muscles, ligaments, bones and tendons. Sometimes just a few extra pounds is all it takesto put one over her/his threshold. Without reducing that stress, it can be difficult to alleviate pain. Some people are uncomfortable addressing this issue, but we feel it is important for you to thinkabout it. As Foot & Ankle specialists, our job is addressing the lower extremity problem and possible causes. Regarding extra body weight, we encourage patients to discuss diet and weight management plans with their primary care doctors. It is this team approach that gives you the best opportunityfor pain relief and getting you back on your feet. documented in this encounter Progress Notes Nohemy Gallardo, [facility], Podiatry/Foot and Ankle Surgery - 01/20/2018 4:30 PM CDT PATIENT HISTORY: Dr. Nair requested I see this patient for their foot issue. Robbie Miller jeison 58 year old female who presents to clinic for pain to both feet. Note the back of the right heel has been sore for 6-8 months. Denies injury to that foot. Very sore in the morning. Has tried some stretching and inserts. Left ball of foot pain started about 1-2 months ago after she jumped down and landed wrong. Pain is 7/10. Has tried icing, decreased activity. Wondering what is causing pain and what can be done. Review of Systems: Patient denies fever, chills, rash, wound,numbness, weakness, heart burn, blood in stool, chest pain with activity, calf pain when walking, shortness of breath with activity, chroniccough, easy bleeding/bruising, swelling of ankles, excessive thirst, fatigue, depression, anxiety. Patient admits to limping, stiffness. PAST MEDICAL HISTORY: Past Medical History: Diagnosis Date ??? ADD (attention deficit disorder) ??? Hypertension ??? Major depression PAST SURGICAL HISTORY: Past Surgical History: Procedure Laterality Date ??? C NONSPECIFIC PROCEDURE SBO w/ 3 resected ??? COLONOSCOPY N/A 11/05/2015 Procedure: COMBINED COLONOSCOPY, SINGLE OR MULTIPLE BIOPSY/POLYPECTOMY BY BIOPSY; Surgeon: Vic Helm MD, MD; Location: [facility] ??? HYSTERECTOMY, ALESSANDRO has ovaries MEDICATIONS: Current Outpatient Prescriptions: ??? buPROPion (WELLBUTRIN XL) 300 MG 24 hr tablet, Take 1 tablet (300 mg) by mouth every morning, Disp: 90 tablet, Rfl: 1 ??? FLUoxetine (PROZAC) 20 MG capsule, TAKE 2 CAPSULES(40 MG) BY MOUTH DAILY, Disp: 180 capsule, Rfl: 0 ??? lisinopril-hydrochlorothiazide (PRINZIDE/ZESTORETIC) 10-12.5 MG per tablet, TAKE 1 TABLET BY MOUTH EVERY DAY, Disp: 30 tablet, Rfl: 0 ??? VITAMIN D, CHOLECALCIFEROL, PO, Take by mouth as needed , Disp: , Rfl: ALLERGIES: Allergies Allergen Reactions ??? No Known Drug Allergies SOCIAL HISTORY: Social History Social History ??? Marital status: Spouse name: N/A ??? Number of children: 1 ??? Years of education: N/A Occupational History ??? [employer] Social History Main Topics ??? Smoking status: Current Every Day Smoker Types: Cigarettes ??? Smokeless tobacco: Never Used Comment: 3/4 PPD ??? Alcohol use Yes Comment: ocassional 3-4 drinks per week ??? Drug use: No ??? Sexual activity: Yes Partners: Female Other Topics Concern ??? Not on file Social History Narrative FAMILY HISTORY: Family History Problem Relation Age of Onset ??? HEART DISEASE Father CHF ??? Breast Cancer Maternal Grandmother ??? Diabetes Maternal Grandmother Type 1 ??? Diabetes Paternal Aunt ??? Colon Cancer No family hx of EXAM:Vitals: BP 138/80 Ht 5' 5 (1.651 m) Wt 204 lb (92.5 kg) BMI 33.95 kg/m2 BMI= Body mass index is 33.95 kg/(m^2). General appearance: Patient is alert and fully cooperative with history & exam. No sign of distress is noted during the visit. Psychiatric: Affect is pleasant & appropriate. Patient appears motivated to improve health. Respiratory: Breathing is regular & unlabored while sitting. HEENT: Hearing is intact to spoken word. Speech is clear. No gross evidence of visual impairment that would impact ambulation. Dermatologic: Skin is intact to both lower extremities without significant lesions, rash or abrasion. No paronychia or evidence of soft tissue infection is noted. Vascular: DP & PT pulses are intact & regular bilaterally. No significant edema or varicosities noted. CFT and skin temperature is normal to both lower extremities. Neurologic: Lower extremity sensation is intact to light touch. No evidence of weakness or contracture in the lower extremities. No evidence of neuropathy. Musculoskeletal: Patient is ambulatory without assistive device or brace. Pain on palpation of the left plantar 4th metatarsal phalangeal joint. Pain on palpation of right achilles tendon insertion. Radiographs: I personally reviewed the xrays. Posterior and plantar heel spurs bilateral. No sign offracture on xray. Degenerative changes noted throughout the midfoot on right foot. ASSESSMENT: Bilateral foot pain Achilles tendinitis of right lower extremity Gastrocnemius equinus, right Stress fracture, left foot, initial encounter for fracture PLAN: Reviewed patient's chart in [facility]. Reviewed xrays. Talked about fractures. Discussed that healing can take 6-10 weeks. Risk that the fracture will not heal and we may need to do surgery. Risk is increased 10-15% if you smoke. No signs of fractures but stress fractures aren't always show up on xray. Given injury, recommend short cast boot for next month. Reviewed and discussed causes of tendonitis. We discussed treatments such as immobiliation, icing, stretching, heel lifts, orthotics, physical therapy, MRI. Talked about PT,inserts and stretches. Patient declined. Will order MRI and call her with results. Nohemy Gallardo DPM, Podiatry/Foot and Ankle Surgery Weight management plan: Patient was referred to their PCP to discuss a diet and exercise plan. Patient to follow up with Primary Care provider regarding elevated blood pressure. documented in this encounter Plan of Treatment Not on filedocumented as of this encounter Results MR Ankle Right w/o Contrast (01/23/2018 11:25 AM CDT) Anatomical Region Laterality Modality Right Ankle, SUBRAD MR MSK, UMP MR MSK, RAD MR Magnetic Resonance Specimen (Source) Anatomical Location Collection Method / Collectio n Time Received Time / Laterality Volume Impressions 01/23/2018 1:04 PM CDT IMPRESSION: ?? 1. Mild edema at the insertion site of t he Achilles tendon on the calcaneal tuberosity. There is some mild peritendinous edema as well. Findings suggest Achilles tendinitis or tendinosis. No evidence of Achilles tendon thickening or rupture. 2. There is likely some mild reactive merry ne marrow edema in the region of the Achilles tendon insertion site. M ild stress reaction in the mid calcaneus difficult to exclude. YAKOV HELM MD Narrative 01/23/2018 1:04 PM CDT MR RIGHT ANKLE WITHOUT CONTRAST ??01/23/2018 11:25 AM HISTORY: ?? Assess for Achilles tendon t ear. Bilateral foot pain. Achilles tendinitis of right lower extre mity. Gastrocnemius equinus, right. Stress fracture, left foot, initi al encounter for fracture. TECHNIQUE: ??Sagittal and coronal T1 and inversion recovery, and transverse proton density and T2 weighte d images. COMPARISON: None. FINDINGS: Plantar Fascia: ??Unremarkable, with no findings to suggest active plantar fasciitis. Osseous and Cartilaginous Structures: ?? Mild bone marrow edema in the posterior calcaneus. This may be reactiv e edema adjacent to Achilles tendinitis. Cannot exclude stress reacti on. Posterior Tibial and Flexor Tendons: ??N o tear or tendinosis of the posterior tibial tendon, flexor digitoru m longus tendon, or flexor hallucis longus tendon. Peroneal Tendons: ??No tear, tendinosis, or apparent longitudinal splitting of the peroneus brevis tendon or peroneus longus tendon. No tendon subluxation. Achilles Tendon: ??There is a small focu s of edema at the Achilles insertion site on the calcaneal tuberosi ty best seen on sagittal series 3 image 12 likely representing te ndinitis or tendinosis. There is some mild peritendinous edema as well . There is no other significant increased signal or thickeni ng in the Achilles tendon. Extensor Tendons: ??No tear tendinosis o f the anterior tibial tendon extensor hallux longus tendons or extens or digitorum longus tendons. Lateral Ligaments: ??The anterior talofi bular ligament appears intact. The calcaneofibular, posterior talofibul ar, and anterior tibiofibular ligaments appear intact. Medial Deltoid Ligamentous Complex: ??In tact. Joint space: No tibiotalar or subtalar j oint effusion. Additional Findings: ??No retrocalcaneal bursitis. No mass within the tarsal tunnel. The sinus Tarsi is unrema rkable. Procedure Note Yakov Helm MD - 01/23/2018Formattin g of this note might be different from the original. MR RIGHT ANKLE WITHOUT CONTRAST 8 11:25 AM HISTORY: Assess for Achilles tendon tear . Bilateral foot pain. Achilles tendinitis of right lower extre mity. Gastrocnemius equinus, right. Stress fracture, left foot, initi al encounter for fracture. TECHNIQUE: Sagittal and coronal T1 and i nversion recovery, and transverse proton density and T2 weighte d images. COMPARISON: None. FINDINGS: Plantar Fascia: Unremarkable, with no fi ndings to suggest active plantar fasciitis. Osseous and Cartilaginous Structures: Mi ld bone marrow edema in the posterior calcaneus. This may be reactiv e edema adjacent to Achilles tendinitis. Cannot exclude stress reacti on. Posterior Tibial and Flexor Tendons: No tear or tendinosis of the posterior tibial tendon, flexor digitoru m longus tendon, or flexor hallucis longus tendon. Peroneal Tendons: No tear, tendinosis, o r apparent longitudinal splitting of the peroneus brevis tendon or peroneus longus tendon. No tendon subluxation. Achilles Tendon: There is a small focus of edema at the Achilles insertion site on the calcaneal tuberosi ty best seen on sagittal series 3 image 12 likely representing te ndinitis or tendinosis. There is some mild peritendinous edema as well . There is no other significant increased signal or thickeni ng in the Achilles tendon. Extensor Tendons: No tear tendinosis of the anterior tibial tendon extensor hallux longus tendons or extens or digitorum longus tendons. Lateral Ligaments: The anterior talofibu lar ligament appears intact. The calcaneofibular, posterior talofibul ar, and anterior tibiofibular ligaments appear intact. Medial Deltoid Ligamentous Complex: Inta ct. Joint space: No tibiotalar or subtalar j oint effusion. Additional Findings: No retrocalcaneal b ursitis. No mass within the tarsal tunnel. The sinus Tarsi is unrema rkable. IMPRESSION: 1. Mild edema at the insertion site of t he Achilles tendon on the calcaneal tuberosity. There is some mild peritendinous edema as well. Findings suggest Achilles tendinitis or tendinosis. No evidence of Achilles tendon thickening or rupture. 2. There is likely some mild reactive merry ne marrow edema in the region of the Achilles tendon insertion site. M ild stress reaction in the mid calcaneus difficult to exclude. YAKOV HELM MD [facility], Podiatry/Foot and Ankle Surgery IMG MRI ORDERABLES XR Foot Bilateral G/E 3 Views (01/20/2018 5:02 PM CDT) Anatomical Region Laterality Modality Foot, Ankle Bilateral Computed Radiography Specimen (Source) Anatomical Location Collection Method / Collectio n Time Received Time / Laterality Volume Impressions 01/21/2018 10:08 AM CDT IMPRESSION: No acute fracture or dislocation. 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 Posterior and plantar calcaneal spurs bilaterally. HANNA CARRANZA MD Narrative 01/21/2018 10:08 AM CDT FOOT BILATERAL THREE OR MORE VIEWS ?? 01/20/2018 5:02 PM ?? HISTORY: Bilateral foot pain. COMPARISON: None. Procedure Note Hanna Carranza MD - 01/21/2018Form atting of this note might be different from the original. FOOT BILATERAL THREE OR MORE VIEWS 2017 5:02 PM HISTORY: Bilateral foot pain. COMPARISON: None. IMPRESSION: No acute fracture or disloca tion. 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 Posterior and plantar calcaneal spurs bilaterally. HANNA CARRANZA MD Nohemy Gallardo DPM, Podiatry/Foot and Ankle Surgery IMG DIAGNOSTIC IMAGING ORDERABLES documented in this encounter Visit Diagnoses Diagnosis Bilateral foot pain - Primary Pain in limb Achilles tendinitis of right lower extre mity Achilles bursitis or tendinitis Gastrocnemius equinus, right Stress fracture, left foot, initial enco unter for fracture Bilateral foot pain Pain in limb Bilateral foot pain Pain in limb Achilles tendinitis of right lower extre mity Achilles bursitis or tendinitis Gastrocnemius equinus, right Stress fracture, left foot, initial enco unter for fracture documented in this encounter Additional Health Concerns Assessment Noted Time PHQ-9 Depression Total Score: 9 01/30/2022 7:03 AM CDT documented as of this encounter Care Teams Child Welfare Director Relationship Specialty Start Date End Date Francia Nair MD PCP - General Internal Medicine 01/28/13 [address] [place] [phone] Francia Nair MD PCP - Assigned PCP 01/07/13 06/29/18 [address] [place] [address] [phone] Francia Nair MD Assigned PCP 01/07/13 [address] [place] [address] documented as of this encounter
--- OUTSIDE RECORDS SUMMARY | 2022-01-30 11:37 | XMS_ITS | Encounter Summary ---
:1960 Author Organization [facility] Address [address] [place] [address] Care Team Providers Name Role Phone Francia Nair MD Primary Care Provider Francia Nair MD Unavailable Francia Nair MD Unavailable Encounter Details Date Type Department Care Team Description 06/14/2018 Travel Social History Tobacco Use Types Packs/Day [...] How often do you attend religious or baptism Never 08/12/2021 services? Do you belong to [...] place to sleep or slept in a longterm (including now)? Sex Assigned at Date Recorded Female 10/16/2020 6:22 PM CDT documented as of this encounter Plan of Treatment Not on filedocumented as of this encounter Visit Diagnoses Not on filedocumented in this encounter Additional Health Concerns Assessment Noted Time PHQ-9 Depression Total Score: 9 01/30/2022 7:03 AM CDT documented as of this encounter Care Teams Experimental Flight Test Mechanic Relationship Specialty Start Date End Date Francia Nair MD PCP - General Internal Medicine 01/28/13 [address] [place] [address] [phone] Francia Nair MD PCP - Assigned PCP 01/07/13 06/29/18 [address] [place] [address] [phone] Francia Nair MD Assigned PCP 01/07/13 [address] [place] [address] [phone] documented as of this encounter
--- OUTSIDE RECORDS SUMMARY | 2022-01-30 11:37 | XMS_ITS | Encounter Summary ---
:1960 Author Organization [facility] Address [address] [place] [address] Care Team Providers Name Role Phone Francia Nair MD Primary Care Provider Francia Nair MD Unavailable Francia Nair MD Unavailable Encounter Details Date Type Department Care Team Description 05/20/2018 Travel Social History Tobacco Use Types Packs/Day [...] 08/12/2021 relatives? How often do you attend hoahaoism or sabianism Never 08/12/2021 services? Do you belong to any clubs or organizations such as Yes 08/12/2021 hoahaoism groups, unions, fraternal or athletic groups, or [...] documented as of this encounter Care Teams Coke Oven Patcher Relationship Specialty Start Date End Date Francia Nair MD PCP - General Internal Medicine 01/28/13 [address] [place] [address] [phone] Fracnia Nair MD PCP - Assigned PCP 01/07/13 06/29/18 [address] [place] [address] [phone] Francia Nair MD Assigned PCP 01/07/13 [address] [place] [address] [phone] documented as of this encounter
--- OUTSIDE RECORDS SUMMARY | 2022-01-30 11:37 | XMS_ITS | Encounter Summary ---
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) Francia Nair MD [address] [place] [address] Referral ID Status Reason Start Date Expiration Date Visits Requ ested Visits Authorized [id number] Closed 11/18/2018 11/18/2019 1 1 Reason for Visit Reason Onset Date Comments Depression 11/14/2018 Encounter Details Date Type Department Care Team Description 11/14/2018 Telephone [facility] Kin Nair MD Depression [place] [address] [place] [address] [place] [address] [phone] Social History Tobacco Use Types Packs/Day Years [...] How often do you attend restoration or jain Never 08/12/2021 services? Do you belong to [...] Telephone Encounter - Francia Nair MD - 11/18/2018 6:10 PM CDT Referral done, they will contact patient. Telephone Encounter - Sussy Finley RN - 11/18/2018 4:53 PM CDT Spoke with patient. Advised of message below. States she is interested in a referral to psych. Please advise, thanks. Telephone Encounter - Francia Nair MD - 11/18/2018 3:50 PM CDT XL should not be cut or broken as it is an extended release medication and so it changes the absorption of the medication to cut it. I do not think Wellbutrin is likely affecting her concentration, often it can help improve concentration for those that have ADD. Often lack of concentration is more of an effect of the mood and stress rather than the medication. Same with lack of motivation. She can just stop the Wellbutrin if she wants to go off of it. When she feels she needs to change something else, I would suggest we may be refer her to 1 of the psychiatric nurse practitioners who can work with her on getting her onto a good regimen of medication. Telephone Encounter - Drea Peter RN - 11/18/2018 3:42 PM CDT Pt calls back. PHQ9 = 7. She states she has poor concentration and wants to wean off of Wellbutrin. She thinks this is contributing to it. For the past week has been taking 150 mg. Cutting her 300 mg in half. Pt doesn't have motivation to do things like going for walk. She states her situation is a little stressful because her Mom about a month ago and it is difficult for her still. Telephone Encounter - Nola Bennett - 11/17/2018 3:00 PM CDT Left msg to call back and ask for the nurse. DEBI Childers Telephone Encounter - Francia Nair MD - 11/14/2018 7:53 AM CDT Call and do a phq-9. documented in this encounter Plan of Treatment Scheduled Referrals Name Type Priority Associated Diagnoses Order [facility] REFERRAL - Referral Routine Mild episode of Ordered: 11/18/2018 Adult; Psychiatry and recurrent major Medication Management; depressive disorde r Psychiatry; G: (H) Collaborative Care Psychiatry Service . Medication management & future refills will be returned to G PCP upon completion of evaluation; We lizzie... documented as of this encounter Visit Diagnoses Diagnosis Mild episode of recurrent major depressi ve disorder (H) - Primary documented in this encounter Additional Health Concerns Assessment Noted Time PHQ-9 Depression Total Score: 7 11/18/2018 3:42 PM CDT documented as of this encounter Care Teams Hospital Chaplain Relationship Specialty Start Date End Date Francia Nair MD PCP - General Internal Medicine 01/28/13 [address] [place], [place] [phone] Francia Nair MD Assigned PCP 01/07/13 [address] [phone] documented as of this encounter
--- OUTSIDE RECORDS SUMMARY | 2022-01-30 11:37 | XMS_ITS | Encounter Summary ---
:1960 Author Organization [facility] Address [address] [place] [id number] Care Team Providers Name Role Phone Francia Nair MD Primary Care Provider Francia Nair MD Unavailable Reason for Visit Reason Comments Medication Refill FLUoxetine (PROZAC) 40 MG ca psule Encounter Details Date Type Department Care Team Description 10/02/2018 Refill [facility] Breonna Esposito Medication Refill Brian Concepcion MD (FLUoxetine (PROZAC) 40 [address] [place] Johnny Koenigina He alth MG capsule) [address] [id number] [phone] Social History Tobacco Use Types Packs/Day Years [...] How often do you attend rastafari or yazidi Never 08/12/2021 services? Do you belong to [...] Telephone Encounter - Francia Nair MD - 10/04/2018 6:14 PM CDT I sent her a message with the PHQ 9. Telephone Encounter - Sussy Finley RN - 10/04/2018 2:46 PM CDT PHQ-9 score: PHQ-9 SCORE 01/07/2018 PHQ-9 Total Score - PHQ-9 Total Score MyChart 9 (Mild depression) PHQ-9 Total Score 11 Routing refill request to provider for review/approval because: Most recent phq9 ouside standing order parameters. And over-due for office visit for depression. Please advise, thanks. Telephone Encounter - Fátima Joseph - 10/04/2018 9:31 AM CDT Requested Prescriptions Pending Prescriptions Disp Refills ??? FLUoxetine (PROZAC) 40 MG capsule [Pharmacy Med Name: FLUOXETINE 40MG CAPSULES] 90 capsule 0 Sig: TAKE 1 CAPSULE BY MOUTH DAILY Last Written Prescription Date: 07/13/2018 Last Fill Quantity: 90, # refills: 0 Last office visit: 06/14/2018 with prescribing provider: Future Office Visit: SSRIs Protocol Failed - 10/02/2018 10:27 AM Failed - PHQ-9 score less than [...] documented as of this encounter Care Teams Principal Biostatistician Relationship Specialty Start Date End Date Francia Nair MD PCP - General Internal Medicine 01/28/13 [address] [place] [address] [phone] Francia Nair MD Assigned PCP 01/07/13 [address] [place], [place] [phone] documented as of this encounter
--- OUTSIDE RECORDS SUMMARY | 2022-01-30 11:37 | XMS_ITS | Encounter Summary ---
:1960 Author Organization [facility] Address [address] [place] [address] Care Team Providers Name Role Phone Francia Nair MD Primary Care Provider Francia Nair MD Unavailable Reason for Visit Reason Onset Date Comments Refill Request 09/14/2018 lisinopril-hydrochlo rothiazide Encounter Details Date Type Department Care Team Description 09/14/2018 Refill [facility] Francia Nair MD Refill Request Clinic [place] [address] (lisinopril-hydrochloro [address] thiazide ) [place] [address] [place], [place] [phone] (Wo rk) [address] [phone] Social History Tobacco Use Types Packs/Day Years [...] Telephone Encounter - Francia Oakley RN - 09/15/2018 2:14 PM CDT Please see message below and advise. Last lipid panel 01/07/18, last office visit 06/14/18 Telephone Encounter - Penny Caputo - 09/15/2018 12:59 PM CDT Patient is still taking the lisinopril/hctz. She had been seeing a doctor who filled it for her but she is no longer seeing them and wants Dr Nair as per PCP. Telephone Encounter - Francia Oakley RN - 09/14/2018 6:44 PM CDT Per chart, a 30 day supply was given on 08/26/17. Is patient still taking this medication? Group Therapy Recordst message sent, please watch for reply. Telephone Encounter - Adrienne Ortiz - 09/14/2018 2:10 PM CDT Requested Prescriptions Pending Prescriptions Disp Refills ??? lisinopril-hydrochlorothiazide (PRINZIDE/ZESTORETIC) 10-12.5 MG tablet Last Written Prescription Date: 08/26/17 Last Fill Quantity: 30, # refills: 0 Last office visit: 06/14/2018 with prescribing provider: 06/14/18 Future Office Visit: 30 tablet 0 Sig: Take 1 tablet by mouth daily Diuretics (Including Combos) Protocol Passed - 09/14/2018 2:09 PM Passed - Blood pressure under 140/90 in past 12 months BP Readings from Last 3 Encounters: 06/14/18 138/84 05/20/18 134/80 01/20/18 138/80 Passed - Recent (12 mo) or future (30 days) visit within the authorizing provider's specialty Patient had office visit in the last 12 months or has a visit in the [...] past 12 months Recent Labs Lab Test 06/14/18 0916 CR 0.78 Passed - Normal serum potassium on file in past 12 months Recent Labs Lab Test 06/14/18 0916 POTASSIUM 4.0 Passed - Normal serum sodium on file in past 12 months Recent Labs Lab Test 06/14/18 0916 NA 141 Passed - No positive test in past 12 months documented in this encounter Plan of Treatment Not on filedocumented as of this encounter Visit Diagnoses Diagnosis Essential hypertension Unspecified essential hypertension documented in this encounter Additional Health Concerns Assessment Noted Time PHQ-9 Depression Total Score: 9 01/30/2022 7:03 AM CDT documented as of this encounter Care Teams Cia Agent Relationship Specialty Start Date End Date Francia Nair MD PCP - General Internal Medicine 01/28/13 [address] [place] [address] Francia Nair MD Assigned PCP 01/07/13 [address] [place] [address] documented as of this encounter
--- OUTSIDE RECORDS SUMMARY | 2022-01-30 11:37 | XMS_ITS | Encounter Summary ---
:1960 Author Organization [facility] Address [address] [place] [address]. [place] [address] Care Team Providers Name Role Phone Francia [...] initial encounter for fracture Nohemy Gallardo DPM, Mri Rscc Procedures MR Ankle Right w/o Contrast Podiatry/Foot and Ankle [address] [facility] [address] [place], [place] [phone] [place] [address] Referral ID Status Reason Start Date Expiration Date Visits Requ ested Visits Authorized [id number] Closed 01/20/2018 01/20/2019 1 1 Reason for Visit Diagnostic Imaging MRI - Closed Specialty Diagnoses / Procedures Referred By Contact Refer red To Contact Radiology. Diagnoses Bilateral foot pain Achilles tendinitis of right lower extremity Gastrocnemius equinus, right Stress fracture, left foot, initial encounter for fracture Nohemy Gallardo DPM, Rh Mri Rscc Procedures MR Ankle Right w/o Contrast Podiatry/Foot and Ankle [address] [facility] [address] [place], [place] [phone] [place] [address] Referral ID Status Reason Start Date Expiration Date Visits Requ ested Visits Authorized [id number] Closed 01/20/2018 01/20/2019 1 1 Encounter Details Date Type Department Care Team Description 01/23/2018 Hospital Encounter [facility] Nohemy Gallardo B ilateral foot pain; [facility] DPM, Achilles tendinitis of right lower extremity; [address] [facility]/Foot Gastrocnemiu s equinus, right; Drive [address] and Ankle Stress fracture, left foot, initial encounter for fracture [place] Surgery [address] [address] [phone] [place], [place] [phone] Social History Tobacco Use Types Packs/Day Years Used Date Current Every Day Smoker Cigarettes Smokeless Tobacco: Never Used Comments: 3/4 PPD Alcohol Use Standard Drinks/Week [...] How often do you attend yarsanism or holiness Never 08/12/2021 services? Do you belong to [...] PM CDT documented as of this encounter Medications at Time of Discharge Medication Sig Dispensed Refills Start Date End Date buPROPion (WELLBUTRIN Take 1 tablet (300 90 tablet 1 201708/21/2018 XL) 300 MG 24 hr mg) by mouth every tabletIndications: Mild morning episode of recurrent major depressive disorder (H) FLUoxetine (PROZAC) 20 TAKE 2 CAPSULES(40 180 capsule 0 03/2811/18/2018 MG capsuleIndications: MG) BY MOUTH DAILY Major depression, recurrent (H) lisinopril-hydrochlorot TAKE 1 TABLET BY 30 tablet 0 201709/14/2018 hiazide MOUTH EVERY DAY (PRINZIDE/ZESTORETIC) 10-12.5 MG per tabletIndications: Essential hypertension order for Equipment being 1 Device 0 01/20/2018 9 DMEIndications: ordered: short Bilateral foot pain, aircast boot Stress fracture, left foot, initial encounter for fracture VITAMIN D, Take by mouth as 0 10/19/19 21 CHOLECALCIFEROL, PO needed documented as of this encounter Plan of Treatment Not on filedocumented as of this encounter Procedures Procedure Name Priority Date/Time Associated Diagnosis Comme nts MR ANKLE RIGHT W/O Routine 01/23/2018 11:25 AM Bilateral foot pain Results for this CONTRAST CDT Achilles tendinitis procedur e are in of right lower the results extremity section. Gastrocnemius equinus, right Stress fracture, left foot, initial encounter for fracture documented in this encounter Results MR Ankle Right w/o [...] in the mid calcaneus difficult to exclude. AYKOV HELM MD Narrative 01/23/2018 1:04 PM CDT [...] Podiatry/Foot and Ankle Surgery IMG MRI ORDERABLES documented in this encounter Visit Diagnoses Diagnosis Bilateral foot pain Pain in limb Achilles tendinitis of right lower extre mity Achilles bursitis or tendinitis Gastrocnemius equinus, right Stress fracture, left foot, initial enco unter for fracture documented in this encounter Additional Health Concerns Assessment Noted Time PHQ-9 Depression Total Score: 9 01/30/2022 7:03 AM CDT documented as of this encounter Care Teams Cash Applications Coordinator Relationship Specialty Start Date End Date Francia Nair MD PCP - General Internal Medicine 01/28/13 [address] [place] [address] [phone] Francia Nair MD PCP - Assigned PCP 01/07/13 06/29/18 [address] [place] [address] [phone] Francia Nair MD Assigned PCP 01/07/13 [address] [place] [phone] documented as of this encounter
--- OUTSIDE RECORDS SUMMARY | 2022-01-30 11:37 | XMS_ITS | Encounter Summary ---
:1960 Author Organization [facility] Address [address] [place] [address] Care Team Providers Name Role Phone Francia Nair MD Primary Care Provider Francia Nair MD Unavailable Reason for Visit Reason Comments Medication Refill lisinopril-hydrochlorothiazi de Encounter Details Date Type Department Care Team Description 12/08/2018 Refill [facility] Francia Nair MD Medication Refill Clinic [place] [address] (lisinopril-hydrochloro [address] thiazide) [place] [address] [place], [place] [phone] (Wo rk) [address] [phone] Social History Tobacco Use Types Packs/Day Years [...] How often do you attend rastafari or christianity Never 08/12/2021 services? Do you belong to [...] Telephone Encounter - Sussy Herron RN - 12/09/2018 3:06 PM CDT Per last office visit 06/14/18: Return in about 6 months (12/12/18) for a BP Recheck. Letter mailed and Flared[employer] message sent to patient. Medication is being filled for 1 time refill only due to: Patient needs to be seen because for BP recheck. Telephone Encounter - Fátima Joseph - 12/08/2018 1:40 PM CDT Requested Prescriptions Pending Prescriptions Disp Refills ??? lisinopril-hydrochlorothiazide (PRINZIDE/ZESTORETIC) 10-12.5 MG tablet [Pharmacy Med Name: LISINOPRIL-HCTZ 10/12.5MG TABLETS] 90 tablet 0 Sig: TAKE 1 TABLET BY MOUTH DAILY Last Written Prescription Date: 09/15/2018 Last Fill Quantity: 90, # refills: 0 Last office visit: 06/14/2018 with prescribing provider: Future Office Visit: Diuretics (Including Combos) Protocol Passed - 12/08/2018 1:24 PM Passed - Blood pressure under 140/90 [...] documented as of this encounter Care Teams Hot Dip Plating Supervisor Relationship Specialty Start Date End Date Francia Nair MD PCP - General Internal Medicine 01/28/13 [address] [place] [address] Francia Nair MD Assigned PCP 01/07/13 [address] [place] [address] documented as of this encounter
--- OUTSIDE RECORDS SUMMARY | 2022-01-30 11:37 | XMS_ITS | Encounter Summary ---
:1960 Author Organization [facility] Address [address] [place] [address] Care Team Providers Name Role Phone Francia Nair MD Primary Care Provider Francia Nair MD Unavailable Encounter Details Date Type Department Care Team Description 01/06/2019 Travel Social History Tobacco Use Types Packs/Day [...] How often do you attend episcopalian or caodaism Never 08/12/2021 services? Do you [...] documented as of this encounter Care Teams Tool Crib Attendant Relationship Specialty Start Date End Date Francia Nair MD PCP - General Internal Medicine 01/28/13 [address] [place], [place] [phone] Francia Nair MD Assigned PCP 01/07/13 [address] [place] [address] [phone] documented as of this encounter
--- OUTSIDE RECORDS SUMMARY | 2022-01-30 11:37 | XMS_ITS | Encounter Summary ---
:1960 Author Organization [facility] Address [address] [place] [address]. [place] [address] Care Team Providers Name Role Phone Francia Nair MD Primary Care Provider Francia Nair MD Unavailable Francia Nair MD Unavailable Julieth Montes OD Unavailable [phone] Ip, Alber Vuong MD Unavailable Reason for Visit Reason Onset Date Comments Call To Schedule Appointment 01/07/2018 Left ras pantoja to schedule DEXA Encounter Details Date Type Department Care Team Description 01/07/2018 Telephone [facility] Francia Nair MD Call To Schedule Clinic [address] Appointment (Left [address] [place] [address] 200 message to [place] [address] DEXA) [address] [place] [address] Social History Tobacco Use Types Packs/Day Years [...] 08/12/2021 relatives? How often do you attend evangelical or oriental orthodox Never 08/12/2021 services? Do you belong to any clubs or organizations such as Yes 08/12/2021 evangelical groups, unions, fraternal or athletic groups, or [...] engage in exercise at is 60 min 08/12/2021 level? Stress Answer [...] this encounter Miscellaneous Notes Telephone Encounter - Michael Marquezah Debra - 01/07/2018 11:41 AM CDT Left message to schedule DEXA documented in this encounter Plan of Treatment Not on filedocumented as of this encounter Visit Diagnoses Not on filedocumented in this encounter Additional Health Concerns Assessment Noted Time PHQ-9 Depression Total Score: 9 01/30/2022 7:03 AM CDT documented as of this encounter Care Teams Fur Floor Worker Relationship Specialty Start Date End Date Francia Nair MD PCP - General Internal Medicine 01/28/[address] [place] [address] [phone] Francia Nair MD PCP - Assigned PCP 01/07/13 06/29/[address] [place] [address] [phone] Francia Nair MD Assigned PCP 01/07/[address] [place] [address] Julieth Montes Assigned Surgical 03/17/21 LEANA Felton Provider [address] [facility] [place] [phone] Alber Mendez MD Assigned Heart and 08/11/21 [address] Vascular Provider [place] [id number] documented as of this encounter
--- OUTSIDE RECORDS SUMMARY | 2022-01-30 11:37 | XMS_ITS | Encounter Summary ---
:1960 Author Organization [facility] Address [address] [place] [address] Care Team Providers Name Role Phone Francia Nair MD Primary Care Provider Francia Nair MD Unavailable Francia Nair MD Unavailable Encounter Details Date Type Department Care Team Description 01/15/2018 [facility] MD [place] [address] [facility] [address] [place] [address] [place] [address] [phone] Social History Tobacco Use Types Packs/Day Years [...] How often do you attend yazidi or temple Never 08/12/2021 services? Do you [...] Telephone Encounter - Sherita Adkins RN - 01/15/2018 8:55 AM CDT Patient calls, Dr. Nair increased her Bupropion to 300 mg at last appointment and was told to call to request a new prescription for the increased dose. Order pended for Bupropion 300 mg. Listed as historic, routed to provider to review. 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
--- OUTSIDE RECORDS SUMMARY | 2022-01-30 11:37 | XMS_ITS | Encounter Summary ---
:1960 Author Organization [facility] Address [address] [place] [address] Care Team Providers Name Role Phone Francia Nair MD Primary Care Provider Francia Nair MD Unavailable Francia Nair MD Unavailable Reason for Referral Diagnostic Imaging CT Scan - Closed Specialty Diagnoses / Procedures Referred By Contact Refer red To Contact Radiology. Diagnoses LLQ abdominal pain Miguelina Moody MD Ct Scan Rscc Procedures CT Abdomen Pelvis w Contrast [address] [place] [address] [employer] [address] [address] Phone: Fax: Referral ID Status Reason Start Date Expiration Date Visits Requ ested Visits Authorized [id number] Closed 06/14/2018 06/14/2019 1 1 DER HAND Reason for Visit Diagnostic Imaging CT Scan - Closed Specialty Diagnoses / Procedures Referred By Contact Refer red To Contact Radiology. Diagnoses LLQ abdominal pain Miguelina Moody MD Ct Scan Rs Procedures CT Abdomen Pelvis w Contrast [address] [place] [address] [address] Phone: Fax: Referral ID Status Reason Start Date Expiration Date Visits Requ ested Visits Authorized [id number] Closed 06/14/2018 06/14/2019 1 1 Encounter Details Date Type Department Care Team Description 06/18/2018 Hospital Encounter [facility] [place] Miguelinasolomon FRAIRE abdominal pain [facility] MD [place] [address] [place] [address] [address] [facility] [address] [place], [place] [address] [place] [phone] [address] Social History Tobacco Use Types Packs/Day Years [...] 08/12/2021 relatives? How often do you attend buddhist or temple Never 08/12/2021 services? Do you belong to any clubs or organizations such as Yes 08/12/2021 buddhist groups, unions, fraternal or athletic groups, or [...] BY MOUTH DAILY Major depression, recurrent (H) lisinopril-hydrochloroth TAKE 1 TABLET BY 30 tablet 0 08/2609/14/2018 iazide MOUTH EVERY DAY (PRINZIDE/ZESTORETIC) 10-12.5 MG per tabletIndications: Essential hypertension VITAMIN D, Take by mouth as 0 10/19/19 21 CHOLECALCIFEROL, PO needed documented as of this encounter Plan of Treatment Not on filedocumented as of this encounter Procedures Procedure Name Priority Date/Time Associated Diagnosis Comme nts CT ABDOMEN PELVIS W Routine 06/18/2018 2:46 PM LLQ abdominal p ain Results for this CONTRAST ROUNDER HAND procedure are i n the results section. documented in this encounter Results CT Abdomen Pelvis w Contrast (06/18/2018 2:46 PM ROUNDER HAND) Anatomical Region Laterality Modality Abdomen/Pelvis, SUBRAD CT BODY, UMP CT ABDOMEN PELVIS, Computed Tomography RAD CT Specimen (Source) Anatomical Location Collection Method / Collectio n Time Received Time / Laterality Volume Impressions 06/18/2018 3:22 PM ROUND[facility] HAND IMPRESSION: 1. No cause for abdominal pain demonstra panfilo. 2. Fatty infiltration of liver. LASHAUN BOLTON MD Narrative 06/18/2018 3:[address] ABDOMEN AND PELVIS WITH CONTRAST ?? [...] MD Miguelina Moody MD IMG CT ORDERABLES documented in this encounter Visit Diagnoses Diagnosis LLQ abdominal pain Abdominal pain, left lower quadrant documented in this encounter Administered Medications Inactive Administered Medications - up to 3 most recent administrations Medication Order MAR Action Action Date Dose Rate Site 0.9% sodium chloride BOLUS New Bag 06/18/2018 2:33 PM ROUNDER HAND 65 mLs Intravenous, 100 mL, ONCE, On Thu06/18/18 at 1445, For 1 dose iopamidol (ISOVUE-370) solution 500 mL Given 06/18/2018 2:33 PM ROUND[facility] HAND 100 mLs 500 mL, Intravenous, ONCE, On Thu06/18/18 at 1445, For 1 dose documented in this encounter Additional Health Concerns Assessment Noted Time PHQ-9 Depression Total Score: 9 01/30/2022 7:03 AM CDT documented as of this encounter Care Teams Ship Wirer Relationship Specialty Start Date End Date Francia Nair MD PCP - General Internal Medicine 01/28/13 [address] [place] [address] Francia Nair MD PCP - Assigned PCP 01/07/13 06/29/18 [address] [place] [address] Francia Nair MD Assigned PCP 01/07/13 [address] [facility] [address] [place] [address] documented as of this encounter
--- OUTSIDE RECORDS SUMMARY | 2022-01-30 11:37 | XMS_ITS | Encounter Summary ---
:1960 Author Organization [facility] Address [address] [place] [address]. [place] [address] Care Team Providers Name Role Phone Francia Nair MD Primary Care Provider Francia Nair MD Unavailable Julieth Montes OD Unavailable [phone] Ip, Alber Vuong MD Unavailable Reason for Visit Reason Onset Date Comments Medication Question 01/21/2019 lower dose Encounter Details Date Type Department Care Team Description 01/21/2019 Telephone [facility] Francia Nair MD Medication Question Clinic [place] [address] (lower dose) [address] [place] [address] [place] [address] [place], [place] [phone] (Wo rk) [address] [phone] Social History Tobacco Use Types Packs/Day Years [...] 08/12/2021 relatives? How often do you attend jewish or muslim Never 08/12/2021 services? Do you belong to any clubs or organizations such as Yes 08/12/2021 jewish groups, unions, fraternal or athletic groups, or [...] this encounter Miscellaneous Notes Telephone Encounter - Katie Kauffman MA - 01/21/2019 11:47 AM CDT Called pt to let her know the rx will be at the [facility] first front ventilator. Katie Kauffman CMA Telephone Encounter - Ottoniel Morfin CNP - 01/21/2019 11:29 AM CDT 50 mg was based on rough equivalence to the Adderall XR 60 mg she was taking last year. We can certainly decrease this. I've issued a new prescription for Vyvanse 30 mg daily. She can pick this up at the [facility]. Telephone Encounter - Francia Nair MD - 01/21/2019 10:44 AM CDT This medication was ordered by psychiatry so will refer to them to address the patient's concerns. Telephone Encounter - Sussy Finley RN - 01/21/2019 9:57 AM CDT Spoke with patient. Started Vyvanse 50mg x 1 wk ago. C/o jittery and panicky feeling. Thinks dose istoo strong. Would like to try a lower dose of medication. States the morning is worse and gets a little better by the afternoon. Last office visit 01-14-19 Please advise, thanks. Telephone Encounter - Karon Martinez - 01/21/2019 9:13 AM CDT Reason for Call: Other prescription Detailed comments: Patient is calling to request a lower dose for lisdexamfetamine (VYVANSE) 50 MG capsule. Please follow up with patient. Phone Number Patient can be reached at: Home number on file [phone] (home) Best Time: anytime Can we leave a detailed message on this number? YES Call taken on 01/21/2019 at 9:13 AM by Karon Martinez documented in this encounter Plan of Treatment Not on filedocumented as of this encounter Visit Diagnoses Diagnosis Attention deficit disorder, unspecified hyperactivity presence - Primary documented in this encounter Additional Health Concerns Assessment Noted Time PHQ-9 Depression Total Score: 3 01/23/2019 9:19 PM CDT documented as of this encounter Care Teams Compliance Aide Relationship Specialty Start Date End Date Francia Nair MD PCP - General Internal Medicine 01/28/[address] [place] [phone] Francia Nair MD Assigned PCP 01/07/[address] [place] [address] Julieth Montes Assigned Surgical 03/17/21 LEANA Felton Provider [facility] [place] [phone] Alber Mendez MD Assigned Heart and 08/11/21 [address] Vascular Provider [place] [id number] documented as of this encounter
--- OUTSIDE RECORDS SUMMARY | 2022-01-30 11:37 | XMS_ITS | Encounter Summary ---
:1960 Author Organization [facility] Address [address] [place] [address]. [place] [address] Care Team Providers Name Role Phone Ita Nair MD Primary Care Provider Ita Nair MD Unavailable Reason for Visit Reason Comments Consult Mental Health Outpatient (Routine) - Closed Specialty Diagnoses / Procedures Referred By Contact Refer red To Contact Diagnoses Mild episode of recurrent major depressive disorder (H) Ita Nair MD [address] [place] [address] Referral ID Status Reason Start Date Expiration Date Visits Requ ested Visits Authorized [id number] Closed 11/18/2018 11/18/2019 1 1 Encounter Details Date Type Department Care Team Description 01/06/2019 Office Visit [facility] Ita Nair MD [address] [place] [address] Attention deficit disorder, unspecified hyperactivity presence (Primary Dx); Mental Health & Ottoniel Morfin, DIVISIONAL HUMAN RESOURCES DIRECTOR [address] [place], [place] [phone] Morbid obesity (H) Addiction [facility] [address] [place] [address] Social History Tobacco Use Types Packs/Day Years Used Date Former Smoker Cigarettes Quit: 05/10/19 19 Smokeless Tobacco: Never Used Tobacco Cessation: Counseling Given: Yes Comments: 3/4 PPD- Alcohol Use Standard Drinks/Week [...] How often do you attend buddhist or church Never 08/12/2021 services? Do you [...] Sign Reading Time Taken Comments Blood Pressure 138/85 01/06/2019 10:55 AM CDT Pulse 92 01/06/2019 10:55 AM CDT Temperature - - Respiratory Rate 12 01/06/2019 10:55 AM CDT Oxygen Saturation 98% 01/06/2019 10:55 AM CDT Inhaled Oxygen Concentration - - Weight 96.2 kg (212 lb) 01/06/2019 10:55 AM CDT Height - - Body Mass Index 35.28 06/14/2018 8:31 AM RISK ADJUSTMENT SPECIALIST documented in this encounter Progress Notes Ottoniel Morfin CNP - 01/06/2019 10:45 AM CDT Images from the original note were not included. Outpatient Psychiatric Evaluation - Standard Adult Name: Robbie Miller : 1960 Source of Referral: Primary Care Provider: Ita Nair MD Last visit: 05/20/2018 Current Psychotherapist: Possibly interested Last visit: interested Identifying Data: Patient is a 58 year old, White Samoan female who presents for initial visit with me. 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 Patient attended the session alone. Consent to communicate signed for Lauren patient's Spouse/Partner and Daughter. Consent for treatment signed and includedin electronic medical record. Discussed limits of confidentiality today. My Practice Policy was reviewed and signed. Patient prefers to be called: Robbie Chief Complaint: Patient reports: Brain fog. Poor memory. HPI: Patient endorsing long-standing ADHD symptoms since her youth, only later diagnosed by PCP in mid-1999's. States she felt dumb when growing up and struggling in school. Feels she's learned to compensate her entire life. Doesn't even know how she got through her Masters. States she has hard time with organizations, planning, remembering; makes sloppy mistakes; feels disorganized, not finishing tasks, easily distractable; reading a book is torture; loses things easily. She denies ever having any formal diagnostic testing for ADHD. States she is worried her short-term memory is getting worse. Doesn't feel as sharp and feels she isin a brain fog. 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 She is wondering if this is evidence of a cognitive decline or a side effect of her medication. Asked about when her memory seemed to be getting worse, she doess states her memory issues seemed to get worse after stopping stimulant medication a year ago. Since she's been off stimulants feels she has lost ground. She states that past treatments of Adderall or methylphenidates were not too particularly helpful, but is somewhat equivocal in this retrospective assessment. I can see from EMR she was taking AdderallXR from 2012 to 2014 at 20 mg BID. Thereafter tried Concerta from 2014 to 2016, up to 54 mg daily. And most recently Adderall XR again from 2015 to 2018, increasing further to 30 mg BID. States she wasn't always consistent with BID dosing, and would go on and off stimulants as was a hassle to get paper Rx's from clinic. States she's been on antidepressants for past 25 years, though feels historically they've been therechiefly to treat her irritability. Was previously on Zoloft, Paxil, and Lexapro, having taken Lexapro the longest at about 8 years. She's been on Prozac past 2 years, at 40 mg daily. Not too convinced of a strong efficacy, but thinks she'd be likely more irritable without them. She states she's tolerating Prozac just fine. Was previously on Wellbutrin, but primarily for smoking cessation; was successful with this and stopped Wellbutrin afterwards without relapse. Psychiatric Review of Symptoms: PHQ-9 scores: PHQ-9 SCORE 01/07/2018 01/07/2018 11/18/2018 PHQ-9 Total Score - - - PHQ-9 Total Score MyChart - 9 (Mild depression) - PHQ-9 Total Score 9 11 7 MORENA-7 scores: MORENA-7 SCORE 08/10/2014 07/25/2016 Total Score 6 - Total Score - 5 Psychiatric History: No hospitalizations No suicide attempts Substance Use History: 1-2 ETOH drinks 1-2 times a month 1-2 16 oz coffee per day Quit smoking Past Medical History: Past Medical History: Diagnosis Date ??? ADD (attention deficit disorder) ??? Hypertension ??? Major depression Surgery: Past Surgical History: Procedure Laterality Date ??? C NONSPECIFIC PROCEDURE SBO w/ 3 resected ??? COLONOSCOPY N/A 11/05/2015 Procedure: COMBINED COLONOSCOPY, SINGLE OR MULTIPLE BIOPSY/POLYPECTOMY BY BIOPSY; Surgeon: Vic Helm MD, MD; Location: [facility] ??? HYSTERECTOMY, ALESSANDRO has ovaries Allergies: Allergies Allergen Reactions ??? No Known Drug Allergies ??? Varenicline PN: LW Reaction: nightmare Primary Care Provider: Ita Nair MD Seizures or Head Injury: No Current Medications: Current Outpatient Medications: ??? FLUoxetine (PROZAC) 40 MG capsule, TAKE 1 CAPSULE BY MOUTH DAILY, Disp: 90 capsule, Rfl: 1 ??? lisinopril-hydrochlorothiazide (PRINZIDE/ZESTORETIC) 10-12.5 MG tablet, TAKE 1 TABLET BY MOUTH DAILY, Disp: 90 tablet, Rfl: 0 ??? VITAMIN D, CHOLECALCIFEROL, PO, Take by mouth as needed , Disp: , Rfl: ??? buPROPion (WELLBUTRIN XL) 300 MG 24 hr tablet, TAKE 1 TABLET(300 MG) BY MOUTH EVERY MORNING (Patient not taking: Reported on 01/06/2019), Disp: 90 tablet, Rfl: 0 The [place] Prescription Monitoring Program has been reviewed and there are no concerns about diversionary activity for controlled substances at this time. Vital Signs: Vitals: BP 138/85 (BP Location: Right arm, Patient Position: Chair, Cuff Size: Adult Regular) Pulse 92 Resp 12 Wt 96.2 kg (212 lb) SpO2 98% ? No BMI 35.28 kg/m?? Labs: Most recent labs reviewed and no new labs. Review of Systems: 10 systems (general, cardiovascular, respiratory, eyes, ENT, endocrine, GI, , M/S, neurological) were reviewed. Most pertinent finding(s) is/are: essential hypertension. The remaining systems are allunremarkable. Family History: Patient reported family history includes: Family History Problem Relation Age of Onset ??? Heart Disease Father CHF ??? Breast Cancer Maternal Grandmother ??? Diabetes Maternal Grandmother Type 1 ??? Diabetes Paternal Aunt ??? Colon Cancer No family hx of Mother = bipolar disorder Daughter = depression Social History: Grew up in [place] Works at [employer] Mental Status Examination: Appearance: awake, alert and adequately groomed Attitude: cooperative Eye Contact: good Gait and Station: Normal Psychomotor Behavior: intact station, gait and muscle tone Oriented to: time, person, and place Attention Span and Concentration: Fair Speech: clear, coherent Mood: OK Affect: appropriate and in normal range Associations: no loose associations Thought Process: bit scattered Thought Content: Appropriate to Interview Recent and Remote Memory: intact Not formally assessed. No amnesia. Fund of Knowledge: appropriate Insight: good Judgment: intact Impulse Control: intact Suicide Risk Assessment: Today Robbie Miller denies suicidal ideation or self-harm impulses. Therefore, based on all available evidence including the factors cited above, Robbie Miller does not appear to be at imminent risk for self-harm, does not meet criteria for a 72-hr hold, and therefore remains appropriatefor ongoing outpatient level of care. A thorough assessment of risk factors related to suicide and self-harm have been reviewed and are noted above. The patient convincingly denies acute suicidality onseveral occasions. Local community safety resources reviewed and printed for patient to use if needed. There was no deceit detected, and the patient presented in a manner that was believable. DSM5 Diagnosis: Attention-Deficit/Hyperactivity Disorder 314.01 (F90.9) Unspecified Attention - Deficit / Hyperactivity Disorder Medical Comorbidities Include: Patient Active Problem List Diagnosis Date Noted ??? Gastroesophageal reflux disease with esophagitis 05/24/2018 Priority: Medium ??? Controlled substance agreement signed 09/03/2015 Priority: Medium Patient is followed by [facility] for ongoing prescription of stimulants. All refills should be approved by this provider, or covering partner. Medication(s): Adderall. Maximum quantity per month: 60 Clinic visit frequency required: Q 6 months Controlled substance agreement on file: Yes Date(s): 09/03/2015 Neuropsych evaluation for ADD completed: No Last [facility] website verification: none [email or web address] ??? Major depression, recurrent (H) 07/11/2013 Priority: Medium ??? CARDIOVASCULAR SCREENING; LDL GOAL LESS THAN 160 01/30/2013 Priority: Medium ??? ADD (attention deficit disorder) Priority: Medium ??? Tobacco use disorder 06/15/2003 Priority: Medium ??? Essential hypertension 06/15/2003 Priority: Medium Problem list name updated by automated process. Provider to review ??? Obesity 06/15/2003 Priority: Medium Problem list name updated by automated process. Provider to review A 12-item WHODAS 2.0 assessment was completed by the patient today and recorded in [email or web address]. No flowsheet data found. The Patient Activation Measure (BANDAR) score was completed and recorded in [facility]. This assesses patientknowledge, skill, and confidence for self-management. BANDAR Score (Last Two) 12/29/2013 BANDAR Raw Score 44 Activation Score 70.8 BANDAR Level 4 Impression: Robbie Miller is a 58 year old female with a history of ADHD and long- standing antidepressanttreatment. I strongly suspect her of having ADHD, though a formal diagnostic evaluation remains the gold-standard for a more affirming diagnosis. I offered to refer her for such an evaluation, but she'd like to defer on this for now. While she denies a hyperactivity element, I would not rule this out.I believe her memory complaints are more the product of her untreated ADHD. I'll additionally contend that her long-standing mood and anxiety issues are more the product of her frustrations living withuntreated ADHD. Unfortunately, she doesn't seem to endorse any satisfactory response to past trials of Concerta and Adderall XR, which were both prescribed at maximum dosages. However, in the case of Adderall XR, it is questionable how diligent she was about getting in that afternoon dose. For this reason, I recommend a trial of Vyvanse, and we'll have her start a more robust dosage. We reviewed common side effects,but I do want her to get a blood pressure cuff for home use and to keep on eye on this given her essential hypertension. If she were to respond well to Vyvanse, perhaps she wouldn't need as much Prozac to keep her anxietyand irritability at bay. Some patients with ADHD-hyperactive type also sometimes benefit with medications like Guanfacine or Clonidine, though these tend to be less reliably beneficial in adults. She is encouraged to work on her organization skills and to get some more regular physical exercise. I informed the patient of my impending departure from [facility]. She'll continue follow up with her PCP. Medication side effects and alternatives reviewed. Health promotion activities recommended and reviewed today. All questions addressed. Education and counseling completed regarding risks and benefits of medications and psychotherapy options. Collaborative Care Psychiatry Service model reviewed today. Recommend therapy for additional support. Treatment Plan: ?? Start Vyvanse 50 mg daily ?? Continue Prozac 40 mg daily ?? Continue all other medical directions per primary care provider. ?? Continue all other medications as reviewed per electronic medical record today. ?? Safety plan reviewed. To the Emergency Department as needed or call [phone]. [place] Crisis Text Line: Text [place] to [address]200 or Suicide LifeLine Chat: [employer]org/chat/ ?? Follow up with primary care provider as planned or for acute medical concerns. Crisis Resources: National Suicide Prevention Lifeline: 286.927.2586 (TTY: 614.923.3737). Call anytime for help. (www.suicidepreventionlifeline.org) National [place] on Mental Illness (www.afshin.org): 281.713.1545 or 980-142-0315. Mental Health Association (www.mentalhealth.org): 126.908.6489 or 490-965-4141. [place] Crisis Text Line: Text [place] to 601010 Suicide LifeLine Chat: [employer].org/chat Administrative Billing: Time spent with patient was 60 minutes and greater than 50% of time or 40 minutes was spent in counseling and coordination of care regarding above diagnoses and treatment plan. Patient Status: The patient is being returned to the referring provider for ongoing care and medication prescribing.The patient can be referred back to this service for further consultation as needed. Signed: Ottoniel Morfin CNP Psychiatry documented in this encounter Plan of Treatment Not on filedocumented as of this encounter Visit Diagnoses Diagnosis Attention deficit disorder, unspecified hyperactivity presence - Primary Morbid obesity (H) Morbid obesity documented in this encounter Additional Health Concerns Assessment Noted Time PHQ-9 Depression Total Score: 7 11/18/2018 3:42 PM CDT documented as of this encounter Care Teams Field Operations Technician Relationship Specialty Start Date End Date Ita Nair MD PCP - General Internal Medicine 01/28/13 [address] [place] [id number] Ita Nair MD Assigned PCP 01/07/13 [address] [place] [id number] documented as of this encounter
--- OUTSIDE RECORDS SUMMARY | 2022-01-30 11:37 | XMS_ITS | Encounter Summary ---
:1960 Author Organization [facility] Address [address] [place] [id number] Care Team Providers Name Role Phone Francia Nair MD Primary Care Provider Francia Nair MD Unavailable Francia Nair MD Unavailable Reason for Visit Reason Comments Gastrophageal Reflux reflux, burping and hiccups Encounter Details Date Type Department Care Team Description 05/20/2018 Office Visit [facility] Francia Nair MD Gastroesophageal reflux [facility] [place] [address] disease with esophagitis [address] (Primary Dx) [place], [place] [id number] Social History Tobacco Use Types Packs/Day [...] 08/12/2021 relatives? How often do you attend sikhism or advent Never 08/12/2021 services? Do you belong to any clubs or organizations such as Yes 08/12/2021 sikhism groups, unions, fraternal or athletic groups, or [...] slept in a senior living (including now)? Sex Assigned at Date Recorded Female 10/16/2020 6:22 PM CDT documented as of this encounter Last Filed Vital Signs Vital Sign Reading Time Taken Comments Blood Pressure 134/80 05/20/2018 5:01 PM SHIPPING COORDINATOR Pulse 85 05/20/2018 5:01 PM SHIPPING COORDINATOR Temperature 36.8 ??C (98.3 ??F) 05/20/2018 5:01 PM SHIPPING COORDINATOR Respiratory Rate 16 05/20/2018 5:01 PM SHIPPING COORDINATOR Oxygen Saturation 97% 05/20/2018 5:01 PM SHIPPING COORDINATOR Inhaled Oxygen Concentration - - Weight 95.3 kg (210 lb 1.6 oz) 05/20/2018 5:01 PM SHIPPING COORDINATOR Height 165.1 cm (5' 5) 05/20/2018 5:01 PM SHIPPING COORDINATOR Body Mass Index 34.96 05/20/2018 5:01 PM SHIPPING COORDINATOR documented in this encounter Patient Instructions Patient InstructionsFrancia Nair MD - 05/20/2018 5:00 PM CST Omeprazole (Prilosec) 20 mg daily on empty stomach at least 30 minutes before eating, at least 2 hours after eating. Take for 6-8 weeks, then try weaning off. If your symptoms come back, try Famotidine (pepcid) 20 mg daily. If not helping after 7 days or so, go back on the Omeprazole. If you still have significant symptoms by 2 weeks, let me know and I would refer for scope. If it helps some but still moderate symptoms by 2 weeks, try taking one omeprazole twice a day. If still symptoms then would refer for scope. For the belching, try Simethicone (Gas-X) one 20-30 minutes before eating. PING COORDINATOR documented in this encounter Progress Notes Francia Nair MD - 05/20/2018 5:00 PM CST SUBJECTIVE: Robbie Miller is a 58 year old female who presents to clinic today for the following health issues: GI concerns: She reports for the past few months she has been having a lot of problems with acid reflux and a lot of belching. She feels heartburn in her lower chest that starts to occur about 30 minutes after eating. Happen even if it is a fairly small meal, worse with a larger meal. She notices water brash when lying down. She finds herself doing a lot of belching. Symptoms are daily, usually more than 1 time a day, especially after eating. She has tried Rolaids and other antacids. She does not think she is tried any acid tim for any prolonged period of time but thinks she tried omeprazole a few times sporadically. None of these things help much. She has no dysphasia, no nausea or vomiting, bowel changes His caffeine 10-30 ounces per day of coffee, occasional Mountain Dew. She found alcohol bothered herso is only having 1-2/month. Patient Active Problem List Diagnosis ??? Tobacco use disorder ??? Essential hypertension ??? Obesity ??? ADD (attention deficit disorder) ??? CARDIOVASCULAR SCREENING; LDL GOAL LESS THAN 160 ??? Major depression, recurrent (H) ??? Controlled substance agreement signed Current Outpatient Medications Medication Sig Dispense Refill ??? buPROPion (WELLBUTRIN XL) 300 MG 24 hr tablet Take 1 tablet (300 mg) by mouth every morning 90 tablet 1 ??? FLUoxetine (PROZAC) 20 MG capsule TAKE 2 CAPSULES(40 MG) BY MOUTH DAILY 180 capsule 0 ??? lisinopril-hydrochlorothiazide (PRINZIDE/ZESTORETIC) 10-12.5 MG per tablet TAKE 1 TABLET BY MOUTH EVERY DAY 30 tablet 0 ??? VITAMIN D, CHOLECALCIFEROL, PO Take by mouth as needed Past Surgical History: Procedure Laterality Date ??? C NONSPECIFIC PROCEDURE SBO w/ 3 resected ??? COLONOSCOPY N/A 11/05/2015 Procedure: COMBINED COLONOSCOPY, SINGLE OR MULTIPLE BIOPSY/POLYPECTOMY BY BIOPSY; Surgeon: Vic Helm MD, MD; Location: [facility] ??? HYSTERECTOMY, ALESSANDRO has ovaries Social History Tobacco Use ??? Smoking status: Former Smoker Types: Cigarettes Last attempt to quit: 05/10/2018 Years since quittin.0 ??? Smokeless tobacco: Never Used ??? Tobacco comment: 06/28 PPD- Substance Use Topics ??? Alcohol use: Yes Comment: ocassional 3-4 drinks per week ??? Drug use: No Reviewed and updated as needed this visit by clinical staff Tobacco Allergies Meds Med Hx Surg Hx Fam Hx Soc Hx Reviewed and updated as needed this visit by Provider ROS: No fever, chills, nausea, vomiting, exertional chest pain, cough, shortness of breath diarrhea, constipation, blood in the stools OBJECTIVE: BP 134/80 Pulse 85 Temp 98.3 ??F (36.8 ??C) (Oral) Resp 16 Ht 1.651 m (5' 5) Wt 95.3 kg (210 lb 1.6 oz) SpO2 97% BMI 34.96 kg/m?? Body mass index is 34.96 kg/m??. Abdomen: Bowel sounds normal, soft, nontender. No hepatosplenomegaly. No masses. ASSESSMENT/PLAN: (K21.0) Gastroesophageal reflux disease with esophagitis (primary encounter diagnosis) Comment: Recommend avoiding caffeine, alcohol, tobacco or peppermint that can aggravate it. Avoid any foods that she is aware to bother her such as citrus or tomato based. Avoid eating 2 hours of bedtime. Plan: Recommend start on omeprazole, advised on how to take it correctly. That is working well, continue it for 6-8 weeks and then try to wean down to famotidine then if doing well can wean off of that. If no improvement at all by 2 weeks then would refer for endoscopy. If some improvement but symptoms are not really resolving, recommend she contact me in a few weeks. Advised she can use Gas-X for the gas, avoid carbonated beverages. Francia Nair MD [facility] PING COORDINATOR documented in this encounter Plan of Treatment Not on filedocumented as of this encounter Visit Diagnoses Diagnosis Gastroesophageal reflux disease with eso phagitis - Primary documented in this encounter Additional Health Concerns Assessment Noted Time PHQ-9 Depression Total Score: 9 01/30/2022 7:03 AM CDT documented as of this encounter Care Teams Pipe Bender Relationship Specialty Start Date End Date Francia Nair MD PCP - General Internal Medicine 01/28/13 [facility] [address] [place] [address] Francia Nair MD PCP - Assigned PCP 01/07/13 06/29/18 [address] [place] [id number] Francia Nair MD Assigned PCP 01/07/13 [address] [place] [id number] documented as of this encounter
--- OUTSIDE RECORDS SUMMARY | 2022-01-30 11:37 | XMS_ITS | Encounter Summary ---
:1960 Author Organization [facility] Address [address] [place] [id number] Care Team Providers Name Role Phone Francia Nair MD Primary Care Provider Francia Nair MD Unavailable Francia Nair MD Unavailable Reason for Visit Diagnostic Imaging XR - Closed Specialty Diagnoses / Procedures Referred By Contact Refer red To Contact Diagnoses Bilateral foot pain Nohemy Gallardo DPM, Procedures XR Foot Bilateral G/E 3 Views Podiatry[facility]Foot [facility]le [facility] [id number] [facility] [address] [place] [address] Referral ID Status Reason Start Date Expiration Date Visits Requ ested Visits Authorized [id number] Closed 01/20/2018 01/20/2019 1 1 Encounter Details Date Type Department Care Team Description 01/20/[address] [facility] Nohemy Gallardo, Bilateral foot pain Clinic [facility], [address] [place], [place] Surgery [id number] [address] [phone] [place] [address] Social History Tobacco Use Types Packs/Day [...] How often do you attend jain or church Never 08/12/2021 services? Do you [...] Name Priority Date/Time Associated Diagnosis Comme nts XR FOOT BILATERAL Routine 01/20/2018 5:02 PM Bilateral foot pa in Results for this G/E 3 VIEWS CDT procedure are i n the results section. documented in this encounter Results XR Foot Bilateral G/E 3 Views (01/20/2018 [...] midfoot. Posterior and plantar calcaneal spurs bilaterally. ALFONSO CARRANZA MD Narrative 01/21/2018 10:08 AM CDT FOOT BILATERAL THREE OR MORE VIEWS ?? 01/20/2018 5:02 PM ?? HISTORY: Bilateral foot pain. COMPARISON: None. Procedure Note Alfonso Carranza MD - 01/21/2018Form atting of this note might be different from the original. FOOT BILATERAL THREE OR MORE VIEWS 2017 5:02 PM HISTORY: Bilateral foot pain. COMPARISON: None. IMPRESSION: No acute fracture or disloca tion. 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 Posterior and plantar calcaneal spurs bilaterally. ALFONSO CARRANZA MD Nohemy Gallardo DPM, Podiatry/Foot and Ankle Surgery [facility] DI[facility]NOSTIC IMAGING ORDERABLES documented in this encounter Visit Diagnoses Diagnosis Bilateral foot pain Pain in limb documented in this encounter Additional Health Concerns Assessment Noted Time PHQ-9 Depression Total Score: 9 01/30/2022 7:03 AM CDT documented as of this encounter Care Teams Corporate Sales Trainer Relationship Specialty Start Date End Date Francia Nair MD PCP - General Internal Medicine 01/28/13 [address] [place] [address] [phone] Francia Nair MD PCP - Assigned PCP 01/07/13 06/29/18 [address] [place] [address] [phone] Francia Nair MD Assigned PCP 01/07/13 [address] [place] [address] [phone] documented as of this encounter
--- OUTSIDE RECORDS SUMMARY | 2022-01-30 11:37 | XMS_ITS | Encounter Summary ---
:1960 Author Organization [facility] Address [address] [place] [id number] Care Team Providers Name Role Phone Francia Nair MD Primary Care Provider Francia Nair MD Unavailable Reason for Visit Reason Onset Date Comments Refill Request 07/11/2018 FLUoxetine (PROZAC) 40 MG capsule Encounter Details Date Type Department Care Team Description 07/11/2018 Refill [facility] Francia Nair MD Refill Request [facility] [address] (FLUoxetine (PROZAC) 40 [address] [place] 200 MG capsule) [place] [address] [place], [place] [phone] (Wo rk) [id number] [phone] Social History Tobacco Use Types Packs/Day Years [...] How often do you attend mu-ism or synagogue Never 08/12/2021 services? Do you [...] Telephone Encounter - Francia Suarez RN - 07/13/2018 12:52 PM CDT Routing refill request to provider for review/approval because: A break in medication Last refilled on 04/16/17 for a 90 day supply Per office visit note 01/07/18: 1. Depression: She has continued to have some depression symptoms, had adjustment of her medications. She is on Wellbutrin 300 mg a day plus Prozac 40 mg Last office visit: 06/14/18 for LLQ pain Telephone Encounter - Fátima Joseph - 07/12/2018 12:40 PM CDT Requested Prescriptions Pending Prescriptions Disp Refills ??? FLUoxetine (PROZAC) 40 MG capsule [Pharmacy Med Name: FLUOXETINE 40MG CAPSULES] 90 capsule 0 Last Written Prescription Date: 04/16/2017 Last Fill Quantity: 180, # refills: 0 Last office visit: 06/14/2018 with prescribing provider: Future Office Visit: Sig: TAKE 1 CAPSULE BY MOUTH DAILY SSRIs Protocol Passed - 07/11/2018 11:09 AM Passed - Recent (12 mo) or future [...] No positive test in last 12 months documented in this encounter Plan of Treatment Not on filedocumented as of this encounter Visit Diagnoses Diagnosis Mild episode of recurrent major depressi ve disorder (H) - Primary documented in this encounter Additional Health Concerns Assessment Noted Time PHQ-9 Depression Total Score: 9 01/30/2022 7:03 AM CDT documented as of this encounter Care Teams Medical Billing Coordinator Relationship Specialty Start Date End Date Francia Nair MD PCP - General Internal Medicine 01/28/13 [address] [place] [address] [phone] Francia Nair MD Assigned PCP 01/07/13 [address] [place] [phone] documented as of this encounter
--- OUTSIDE RECORDS SUMMARY | 2022-01-30 11:37 | XMS_ITS | Encounter Summary ---
:1960 Author Organization [place] Address [address] [place] [id number] Care Team Providers Name Role Phone Francia Nair MD Primary Care Provider Francia Nair MD Unavailable Francia Nair MD Unavailable Reason for Referral Mental Health Outpatient - Closed Specialty Diagnoses / Procedures Referred By Contact Refer red To Contact Diagnoses Mild episode of recurrent major depressive disorder (H) Francia Nair MD [address] [facility] [address] [place] [address] Referral ID Status Reason Start Date Expiration Date Visits Requ ested Visits Authorized [id number] Closed 01/07/2018 01/07/2019 1 1 onsultation - Closed Specialty Diagnoses / Procedures Referred By Contact Refer red To Contact Podiatry Diagnoses Achilles tendinitis of right lower extremity Foot injury, left, initial encounter Francia Nair MD [facility] [address] [place] [phone] [facility] [place] [address] Phone: Fax: Referral ID Status Reason Start Date Expiration Date Visits Requ ested Visits Authorized [id number] Closed 01/07/2018 01/07/2019 1 1 Reason for Visit Reason Comments Physical Encounter Details Date Type Department Care Team Description 01/07/2018 Office Visit [facility] Francia Nair MD Encounter for routine adult health exami nation without abnormal findings (Primary Dx); [facility] [address] Mild episode of recurrent ma braxton depressive disorder (H); [address] Abnormal blood sugar; [place], [place] Essential hypertension; [place] [address] Achilles tendinitis of right lower extre mity; [id number] Foot injury, left, initial encounter [phone] Social History Tobacco Use Types Packs/Day Years [...] How often do you attend christianity or scientologist Never 08/12/2021 services? Do you belong to [...] Sign Reading Time Taken Comments Blood Pressure 130/86 01/07/2018 8:09 AM CDT Pulse 85 01/07/2018 8:09 AM CDT Temperature 36.9 ??C (98.5 ??F) 01/07/2018 8:09 AM CDT Respiratory Rate 16 01/07/2018 8:09 AM CDT Oxygen Saturation 98% 01/07/2018 8:09 AM CDT Inhaled Oxygen Concentration - - Weight 92.5 kg (204 lb) 01/07/2018 8:09 AM CDT Height 165.1 cm (5' 5) 01/07/2018 8:09 AM CDT Body Mass Index 33.95 01/07/2018 8:09 AM CDT documented in this encounter Patient Instructions Patient InstructionsBeth FelicianoDEBI - 01/07/2018 8:11 AM CDT Images from the original note were not included. You can do the towel stretch right away. When the towel stretch is easy, try the standing calf stretch, soleus stretch, and leg lift. When you no longer have sharp pain in your calf or tendon, you can do the step-up, heel raises, and static and dynamic balance exercises. Towel stretch: Sit on a hard surface with your injured leg stretched out in front of you. Loop a towel around your toes and the ball of your foot and pull the towel toward your body keeping your leg straight. Hold this position for 15 to 30 seconds and then relax. Repeat 3 times. Standing calf stretch: Stand facing a wall [...] to the starting position. Repeat 3 times. Side-lying leg lift: Lie on your uninjured side. Tighten the front thigh muscles on your injured legand lift that leg 8 to 10 inches away from the other leg. Keep the leg straight and lower it slowly.Do 3 sets of 10. Step-up: Stand with the foot of your [...] uninjured leg back to the floor. Do 3 sets of 10. Heel raise: Balance yourself while standing behind [...] down on the injured leg only. Repeat 10 times. Do 3 sets of 10. Rest 30 seconds between sets. Balance and reach exercises Stand next to a chair with your injured leg further from the chair. The chair will provide support if you need it. Stand on just the foot of your injured leg. Try to raise the arch of this foot while keeping your big toe on the floor. 0. Keep your foot in this position and with the hand that is further away from the chair, reach forward in front of you. Allow the knee on your injured side to bend. Repeat this 10 times while keeping the arch height. To make the exercise more challenging, reach farther in front of you. Do 2 sets of 10. 0. mobile application engineer the same position as above. While keeping your arch height, reach the hand that is further away from the chair across your body toward the chair. The farther you reach, the more challengingthe exercise. Do 2 sets of 10. Published by [employer]. This content is reviewed periodically and is subject to change as new health information becomes available. The information is intended to inform and educate and is not a replacement for medical evaluation, advice, diagnosis or treatment by a healthcare professional. Written by Shawanda Diaz MS, PT, and Ericka Recinos PT, [facility], [facility], for [employer]. PREVENTIVE HEALTH RECOMMENDATIONS: Vaccines: Get a flu shot each year. Get a tetanus shot every 10 years. Exercise for at least 150 minutes a week (an average of 30 minutes a day, 5 days of the week). This will help you control your weight and prevent disease. Limit alcohol to one drink per day. No smoking. Wear sunscreen to prevent skin cancer. See your dentist twice a year for an exam and cleaning. Try to get Calcium 1200 mg total per day. It is best to not take it all at once. Try to get Vitamin D at least 0932-7769 units per day. BMI or Body Mass Index is a way of indicating weight and health risk for cardiovascular diseases, high blood pressure, diabetes. Definitions: Underweight is less than 18.5 and will be associated with health risk. Normal BMI is 18.5 to 25 Overweight is 25-29 Obesity is 30 or greater Morbid Obesity is 40 or greater or 35 or greater with diabetes, prediabetes or abnormal blood sugar, high blood pressure or elevated cholesterol Obesity and Morbid Obesity are associated with higher health risks. Lowering calories, exercising more may lower your BMI and even small decreases can have positive impact on lowering health risks. Your Body mass index is 33.95 kg/(m^2).., documented in this encounter Progress Notes Francia Nair MD - 01/07/2018 8:00 AM CDT SUBJECTIVE: CC: Robbie Miller is an 57 year old woman who presents for preventive health visit. Physical Annual: Getting at least 3 servings of Calcium per day: Yes Bi-annual eye exam: Yes Dental care twice a year: Yes Sleep apnea or symptoms of sleep apnea: None Diet: Regular (no restrictions) Frequency of exercise: 1 day/week Duration of exercise: 15-30 minutes Taking medications regularly: Yes Medication side effects: None Additional concerns today: No She is re[facility] care [facility] is now coming [facility] here. Current concerns: 1. Depression: She has continued to have some depression symptoms, had adjustment of her medications. She is on Wellbutrin 300 mg a day plus Prozac 40 mg. Despite that her symptoms are not optimally controlled. She has been on a number of different medications in the past and has never felt like her symptoms have been really well controlled. 2. She is having problems with her feet: She had an injury to the top of her left foot several months ago, still hurting. She also has had pain in her right Achilles tendon for about a year or so. 3. She would like to have her blood sugar checked with her labs today. 4. She complains of some hiccups with eating. Today's PHQ-2 Score: PHQ-2 (??1998 Pf[employer]) 01/07/2018 Q1: Little interest or pleasure in doing things 2 Q2: Feeling down, depressed or hopeless 2 PHQ-2 Score 4 Q1: Little interest or pleasure in doing things More than half the days Q2: Feeling down, depressed or hopeless More than half the days PHQ-2 Score 4 Abuse: Current or Past(Physical, Sexual or Emotional)- No Do you feel safe in your environment - Yes Social History Substance Use Topics ??? Smoking status: Current Every Day Smoker Types: Cigarettes ??? Smokeless tobacco: Never Used Comment: 3/ PPD ??? Alcohol use Yes Comment: ocassional 3-4 drinks per week Alcohol Use 01/07/2018 If you drink alcohol do you typically have greater than 3 drinks per day OR greater than 7 drinks per week? No Reviewed orders with patient. Reviewed health maintenance and updated orders accordingly - Yes Patient over age 50, mutual decision to screen reflected in health maintenance. Pertinent mammograms are reviewed under the imaging tab. History of abnormal Pap smear: Status post benign hysterectomy. Health Maintenance and Surgical History updated. Reviewed and updated as needed this visit by clinical staff Tobacco Allergies Med Hx Surg Hx Fam Hx Soc Hx Reviewed and updated as needed this visit by Provider Review of Systems Physical Exam Patient Active Problem List Diagnosis ??? Tobacco use disorder ??? Essential hypertension ??? Obesity ??? ADD (attention deficit disorder) ??? CARDIOVASCULAR SCREENING; LDL GOAL LESS THAN 160 ??? Major depression, recurrent (H) ??? Controlled substance agreement signed Current Outpatient Prescriptions Medication Sig Dispense Refill ??? buPROPion (WELLBUTRIN XL) 150 MG 24 hr tablet Take 2 tablets (300 mg) by mouth every morning ??? FLUoxetine (PROZAC) 20 MG capsule TAKE 2 CAPSULES(40 MG) BY MOUTH DAILY 180 capsule 0 ??? lisinopril-hydrochlorothiazide (PRINZIDE/ZESTORETIC) 10-12.5 MG per tablet TAKE 1 TABLET BY MOUTH EVERY DAY 30 tablet 0 ??? VITAMIN D, CHOLECALCIFEROL, PO Take by mouth as needed Review Of Systems Skin: sees derm Eyes: negative Ears/Nose/Throat: hearing aids Respiratory: No dyspnea on exertion and No cough Cardiovascular: negative Gastrointestinal: negative Genitourinary: negative Musculoskeletal: negative Neurologic: negative Psychiatric: as above Hematologic/Lymphatic/Immunologic: negative Endocrine: negative Gynecologic ros reveals:no breast pain or new or enlarging lumps on self exam, no vaginal bleeding, no discharge or pelvic pain Objective: Patient alert, in no acute distress BP 130/86 Pulse 85 Temp 98.5 ??F (36.9 ??C) (Oral) Resp 16 Ht 5' 5 (1.651 m) Wt 204 lb (92.5 kg) SpO2 98% BMI 33.95 kg/m2 HEENT: extraocular movements are intact, pupils equal and reactive to light and accommodation, TMs clear, oropharynx clear NECK: Neck supple. No adenopathy. Thyroid symmetric, normal size,, Carotids without bruits. PULMONARY: clear to auscultation CARDIAC: regular rate and rhythm and no murmurs, clicks, or gallops PULSES: 2/2 throughout BACK: no spinal or CVAT ABDOMINAL: Soft, nontender. Normal bowel sounds. No hepatosplenomegaly or abnormal masses BREAST: No breast masses or tenderness, No axillary masses or tenderness and No galactorrhea PELVIC: external genitalia normal, bimanual exam reveals absent cervix and uterus, no adnexal masses. REFLEXES: 2+ throughout SKIN: unremarkable Tender right achilles tendon insertion PHQ-9 SCORE 07/25/2016 01/07/2018 01/07/2018 Total Score - - - Total Score MyChart - - 9 (Mild depression) Total Score 11 9 11 ASSESSMENT/PLAN: 1. Encounter for routine adult health examination without abnormal findings - Lipid panel reflex to direct LDL Fasting - DX Hip/Pelvis/Spine; Future 2. Mild episode of recurrent major depressive disorder (H) Symptoms not optimal, has tried some other medications, suggest referred to our psych nurse practitioner to manage her medications - MENTAL HEALTH REFERRAL - Adult; Psychiatry and Medication Management; Psychiatry; [facility]iatry [facility] . Medication management & future refills will be returned to [facility] PCP upon completion of evaluation; We lizzie... 3. Abnormal blood sugar Recheck labs - Basic metabolic panel - Hemoglobin A1c 4. Essential hypertension Blood pressures controlled, check labs - Basic metabolic panel - Albumin Random Urine Quantitative with Creat Ratio 5. Achilles tendinitis of right lower extremity This is been very chronic, advised to ice it, stretches and refer to podiatry - ORTHO CEREAL CHEMIST REFERRAL 6. Foot injury, left, initial encounter Refer to podiatry - ORTHO CEREAL CHEMIST REFERRAL COUNSELING: Reviewed preventive health counseling, as reflected in patient instructions BP Readings from Last 1 Encounters: 01/07/18 130/86 Estimated body mass index is 33.95 kg/(m^2) as calculated from the following: Height as of this encounter: 5' 5 (1.651 m). Weight as of this encounter: 204 lb (92.5 kg). Weight management plan: Discussed healthy diet and exercise guidelines and patient will follow up in12 months in clinic to re-evaluate. reports that she has been smoking Cigarettes. She has never used smokeless tobacco. Counseling Resources: ATP IV Guidelines Pooled Cohorts Equation Calculator Breast Cancer Risk Calculator FRAX Risk Assessment ICSI Preventive Guidelines Dietary Guidelines for Americans, 2009 [place] PERL's MyPlate ASA Prophylaxis Lung CA Screening Francia Nair MD [facility] Answers for HPI/ROS submitted by the patient on 01/07/2018 PHQ-2 Score: 4 If you checked off any problems, how difficult have these problems made it for you to do your work, take care of things at home, or get along with other people?: Somewhat difficult PHQ9 TOTAL SCORE: 9 documented in this encounter Plan of Treatment Scheduled Referrals Name Type Priority Associated Diagnoses Order S [facility] REFERRAL - Referral Routine Mild episode of Ordered: 01/07/2018 Adult; Psychiatry and recurrent major Medication Management; depressive disorde r Psychiatry; G: (H) [facility] . Medication management & future refills will be returned to [facility] PCP upon completion of evaluation; We lizzie... documented as of this encounter Procedures Procedure Name Priority Date/Time Associated Diagnosis Comme nts ALBUMIN RANDOM URINE Routine 01/07/2018 9:04 AM Essential R esults for this QUANTITATIVE CDT hypertension procedure are i n the results section. LIPID REFLEX TO Routine 01/07/2018 9:04 AM Encounter for Resul ts for this DIRECT LDL PANEL CDT routine adult health pro cedure are in examination without the resu lts abnormal findings section. HEMOGLOBIN A1C Routine 01/07/2018 9:04 AM Abnormal blood sugar Results for this CDT procedure are i n the results section. BASIC METABOLIC PANEL Routine 01/07/2018 9:04 AM Abnorma l blood sugar Results for this CDT Essential procedure are i n hypertension the results section. documented in this encounter Results (ABNORMAL) Hemoglobin A1c (01/07/2018 9:04 AM CDT) Analysis Performed At Patho logist Time Signature Hemoglobin A1C 6.0 (H) 0 - 5.6 % 01/07/2018 [place] 11:30 AM CDT [facility] Comment: Normal <5.7% Prediabetes 5.7-6.4% ??Diab etes 6.5% or higher - adopted from ADA consensus guidelines. Specimen Anatomical Collection Method Collection Time Receive d Time (Source) Location / / Volume Laterality Blood specimen 01/07/2018 9:04 AM 018 9:09 (specimen) CDT AM CDT Francia Nair MD LAB - BLOOD ORDERABLES Performing Organization Address City/[facility]/ZIP Code Phon e Number [facility] [address] [place] [address] [address] Albumin Random Urine Quantitative with Creat Ratio (01/07/2018 9:04 AM CDT) P athologist Signature Creatinine 123 mg/dL 01/08/2018 [place] Urine 9:02 AM T [facility] Albumin Urine 6 mg/L 01/08/2018 [place] mg/L 9:07 AM CDT [facility] Albumin Urine 5.08 0 - 25 01/08/2018 [place] mg/g Cr mg/g Cr 9:07 AM CDT [facility] Specimen Anatomical Collection Method Collection Time Receive d Time (Source) Location / / Volume Laterality Urine specimen 01/07/2018 9:04 AM 018 9:09 (specimen) CDT AM CDT Francia Nair MD LAB - URINE ORDERABLES Performing Organization Address City/[facility]/ZIP Code Phon e Number [facility] [address] [place] [address] Basic metabolic panel (01/07/2018 9:04 AM CDT) P athologist Signature Sodium 140 133 - 144 01/07/2018 [facility] mmol/L 5:08 PM T [facility] Potassium 4.1 3.4 - 5.3 01/07/2018 [facility] mmol/L 5:08 PM CDT [facility] Chloride 104 94 - 109 01/07/2018 [facility] mmol/L 5:08 PM T [facility] Carbon Dioxide 28 20 - 32 01/07/2018 [facility] [place] [facility] mmol/L 5:08 PM CDT [facility] Anion Gap 8 3 - 14 01/07/2018 [facility] mmol/L 5:08 PM T [facility] Glucose 98 70 - 99 01/07/2018 [facility] mg/dL 5:08 PM T [facility] Comment: Fasting specimen Urea Nitrogen 16 7 - 30 mg/dL 01/07/2018 5:[address] [facility] Creatinine 0.66 0.52 - 1.04 mg/dL 01/07/2018 5:[address] [facility] GFR Estimate >90 >60 mL/min/1.7m2 01/07/2018 5:[address] [facility] Comment: Non GFR Calc GFR Estimate If >90 >60 mL/min/1.7m2 01/07/2018 5:08 P M [facility] Black T [facility] Comment: GFR Calc Calcium 8.9 8.5 - 10.1 mg/dL 01/07/2018 5:[address] [facility] Specimen Anatomical Collection Method Collection Time Receive d Time (Source) Location / / Volume Laterality Blood specimen 01/07/2018 9:04 AM 018 9:09 (specimen) CDT AM CDT Francia Nair MD LAB - BLOOD ORDERABLES Performing Organization Address City/State/ZIP Code Phon e Number [facility] [address] [place] [address] (ABNORMAL) Lipid panel reflex to direct LDL Fasting (01/07/2018 9:04 AM CDT) P athologist Signature Cholesterol 230 (H) <200 mg/dL 01/07/2018 [facility] 5:08 PM CDT [facility] Comment: Desirable: <200 mg/dl Triglycerides 198 (H) <150 mg/dL 01/07/2018 5:08 PM CDT [facility] Comment: Borderline high: ??150-199 mg/dl High: ? 200-499 mg/dl Very high: ? >499 mg/dl Fasting specimen HDL Cholesterol 48 (L) >49 mg/dL 01/07/2018 5:08 PM [facility] LDL Cholesterol 142 (H) <100 mg/dL 01/07/2018 5:08 PM [facility] Calculated CDT [facility] Comment: Above desirable: ??100-129 mg/dl Borderline High: ??130-159 mg/dL High: ? 160-189 mg/dL Very high: ? >189 mg/dl Non HDL Cholesterol 182 (H) <130 mg/dL 01/07/2018 5:08 PM [facility] Comment: Above Desirable: ??130-159 mg/dl Borderline high: ??160-189 mg/dl High: ? 190-219 mg/dl Very high: ? >219 mg/dl Specimen Anatomical Collection Method Collection Time Receive d Time (Source) Location / / Volume Laterality Blood specimen 01/07/2018 9:04 AM 018 9:09 (specimen) CDT AM CDT Francia Nair MD LAB - BLOOD ORDERABLES Performing Organization Address City/State/ZIP Code Phon e Number [facility] [address] [place] [address] documented in this encounter Visit Diagnoses Diagnosis Encounter for routine adult health exami nation without abnormal findings - Primary Mild episode of recurrent major depressi ve disorder (H) Abnormal blood sugar Other abnormal glucose Essential hypertension Unspecified essential hypertension Achilles tendinitis of right lower extre mity Achilles bursitis or tendinitis Foot injury, left, initial encounter documented in this encounter Additional Health Concerns Assessment Noted Time PHQ-9 Depression Total Score: 9 01/30/2022 7:03 AM CDT documented as of this encounter Care Teams Escrow Clerk Relationship Specialty Start Date End Date Francia Nair MD PCP - General Internal Medicine 01/28/13 [address] [place] [address] [phone] Francia Nair MD PCP - Assigned PCP 01/07/13 06/29/18 [address] [place] [address] [phone] Francia Nair MD Assigned PCP 01/07/13 [address] [place] [address] [phone] documented as of this encounter
--- OUTSIDE RECORDS SUMMARY | 2022-01-30 11:38 | XMS_ITS | Encounter Summary ---
:1960 Author Organization [facility] Address [address] [place] [address] Care Team Providers Name Role Phone Francia Nair MD Primary Care Provider Francia Nair MD Unavailable Francia Nair MD Unavailable Reason for Visit Auth/Cert Specialty Diagnoses / Procedures Referred By Contact Refer red To Contact Gastroenterology Diagnoses screening Rh Endoscopy Procedures COLONOSCOPY [address] [place] [address] Phone: Fax: Referral ID Status Reason Start Date Expiration Date Visits Requ ested Visits Authorized [id number] 1 1 Encounter Details Date Type Department Care Team Description 11/05/2015 Surgery [facility] Reyna Helm MD COLONOSCOPY with Endoscopy JENNIFER MOSES PA polypectomies by cold [address] jumbo forceps [address] [place] [address] [place], [place] [phone] (Wo rk) [id number] [phone] Surgery Details Date/Time Status Location OR Service Patient Class Case Case Trauma Class Type Case? 11/05/15 9:30 Posted GI GI B Gastroenterology Outpatient AM Panel 1 Procedure LRB Anes Op Region Wound Class Commen ts COLONOSCOPY with N/A Conscious Rectum II-Clean COLONOSC OPY with polypectomies by Sedation Contaminated polype ctomies by cold jumbo forceps cold j umbo forceps Surgeon Surgeon Role Service Panel Reyna Helm MD Primary Gastroenterology 1 Special Needs Ref: deisy documented in this encounter Social History Tobacco [...] How often do you attend evangelical or pentecostal Never 08/12/2021 services? Do you [...] - Inhaled Oxygen Concentration - - Weight 84.4 kg (186 lb) 11/05/2015 9:30 AM CDT Height 165.1 cm (5' 5) 11/05/2015 9:30 AM CDT Body Mass Index 30.95 11/05/2015 9:30 AM CDT documented in this encounter Discharge Instructions Discharge Marissa Meraz RN - 11/05/2015 11:46 AM CDT Images from the original note were not included. Eating a High-Fiber Diet Fiber is what gives strength and structure to plants. Most grains, beans, vegetables, and fruits contain fiber. Foods rich in fiber are often low in calories and fat, and they fill you up more. They may also reduce your risks for certain health problems. To find out the amount of fiber in canned, packaged, or frozen foods, read the ???Nutrition Facts?? label. It tells you how much fiber is in a serving. Types of Fiber and Their Benefits There are two types of fiber: insoluble and soluble. They both aid digestion and help you maintain ahealthy weight. Insoluble fiber: This is found in whole grains, cereals, certain fruits and vegetables (such as apple skin, corn, and carrots). Insoluble fiber may prevent constipation and reduce the risk of certain types of cancer. Soluble fiber: This type of fiber is in oats, beans, and certain fruits and vegetables (such as strawberries and peas). Soluble fiber can reduce cholesterol (which may help lower the risk of heart disease), and helps control blood sugar levels. Look for High-Fiber Foods Whole-grain breads and cereals: Try to eat 6-8 ounces a day. Include wheat and oat bran cereals, whole-wheat muffins or toast, and corn tortillas in your meals. Fruits: Try to eat 2 cups a day. Apples, oranges, strawberries, pears, and bananas are good sources.(Note: Fruit juice is low in fiber.) Vegetables: Try to eat 3 cups a day. Add asparagus, carrots, broccoli, peas, and corn to your meals. Legumes (beans): One cup of cooked lentils gives you over 15 grams of fiber. Try navy beans, lentils, and chickpeas. Seeds: A small handful of seeds gives you about 3 grams of fiber. Try sunflower seeds. Keep Track of Your Fiber A healthy diet includes 31 grams of fiber a day if you have a 2,000-calorie diet. Keep track of how much fiber you eat. Start by reading food labels. Then eat a variety of foods high in fiber. Ask yourdoctor about supplemental fiber products. ?? [id number] [employer], [address] [place] [address], [place] [address]. All rights reserved. This information is not intended as a substitute for professional medical care. Always follow your healthcare professional's instructions. HIGH FIBER DIET Fiber is present in all fruits, vegetables, cereals and grains. Fiber passes through the body undigested. A high fiber diet helps food move through the intestinal tract. The added bulk is helpful in preventing constipation. In people with diverticulosis it serves to clean out the pouches along the colon wall while preventing new ones from forming. A high fiber diet also reduces the risk of colon cancer, decreases blood cholesterol and prevents high blood sugar in people with diabetes. The foods listed below are high in fiber and should be included in your diet. If you are not used tohigh fiber foods, start with 1 or 2 foods from this list. Every 3-4 days add a new one to your diet until you are eating 4 high fiber foods per day. This should give you 20-35 Gm of fiber/day. It is also important to drink a lot of water when you are on this diet (6-8 glasses a day). Water causes the fiber to swell and increases the benefit. FOODS HIGH IN DIETARY FIBER: BREADS: Made with 100% whole wheat flour; wolf, wheat or rye crackers; tortillas, bran muffins CEREALS: Whole grain cereal with bran (Chex, Raisin Bran, [place]ork Bran), oatmeal, rolled oats, granola,wheat flakes, brown rice NUTS: Any nuts FRUITS: All fresh fruits along with edible skins, (bananas, citrus fruit, mangoes, pears, prunes, raisins, apples, pineapple, apricot, melon, jams and marmalades), fruit juices (especially prune juice) VEGETABLES: All types, preferably raw or lightly cooked: especially, celery, eggplant, potatoes, spinach, broccoli, brussel sprouts, winter squash, carrots, cauliflower, soybeans, lentils, fresh and dried beans of all kinds OTHER: Popcorn, any spices ?? [id number], [place] [address]. All rights reserved. This information is not intended as a substitute for professional medical care. Always follow your healthcare professional's instructions. Understanding Colon and Rectal Polyps The colon has a smooth lining composed of millions of cells. The colon (also called the large intestine) is a muscular tube that forms the last part of the digestive tract. It absorbs water and stores food waste. The colon is about 4 to 6 feet long. The rectum is the last 6 inches of the colon. The colon and rectum have a smooth lining composed of millions of cells. Changes in these cells can lead to growths in the colon that can become cancerous and should beremoved. When the Colon Lining Changes Changes that occur in the cells that line the colon or rectum can lead to growths called polyps. Over a period of years, polyps can turn cancerous. Removing polyps early may prevent cancer from ever forming. Polyps Polyps are fleshy clumps of tissue that form on the lining of the colon or rectum. Small polyps are usually benign (not cancerous). However, over time, cells in a polyp can change and become cancerous.The larger a polyp grows, the more likely this is to happen. Also, certain types of polyps known as a denomatous polyps are considered premalignant. This means that they will almost always become cancerous if they???re not removed. Cancer Almost all colorectal cancers start when polyp cells begin growing abnormally. As a cancerous tumor grows, it may involve more and more of the colon or rectum. In time, cancer can also grow beyond the colon or rectum and spread to nearby organs or to glands called lymph nodes. The cells can also travel to other parts of the body. This is known as metastasis. The earlier a cancerous tumor is removed, the better the chance of preventing its spread. ?? 7252-6099 [place] [address]. All rights reserved. This information is not intended as a substitute for professional medical care. Always follow your healthcare professional's instructions. documented in this encounter Medications at Time of Discharge Medication Sig Dispensed Refills Start Date End Date amphetamine-dextroampheta 2 po daily 60 capsule 0 10/12/2015 12/11/2015 mine (ADDERALL XR) 30 MG per capsuleIndications: ADD (attention deficit disorder) escitalopram (LEXAPRO) 20 Take 1 tablet (20 90 tablet 3 12/201507/25/2016 MG tabletIndications: mg) by mouth daily Major depressive disorder, recurrent episode, moderate (H) lisinopril-hydrochlorothi Take 1 tablet by 90 tablet 3 12/201507/26/2016 azide mouth daily (PRINZIDE,ZESTORETIC) 10-12.5 MG per tabletIndications: Essential hypertension VITAMIN D, Take by mouth as 0 10/19/19 21 CHOLECALCIFEROL, PO needed documented as of this encounter H&P Notes Reyna Helm MD, - 11/05/2015 10:57 AM CDT Pre-Endoscopy History and Physical Robbie Harry Date of : 1960 Age: [age] year old Date of Procedure: 11/05/2015 Primary care provider: Francia Nair Type of Endoscopy: colonoscopy Reason for Procedure: screening Type of Anesthesia Anticipated: Conscious Sedation HPI: Robbie is a 55 year old female who will be undergoing [...] recurrent (H) ??? Controlled substance agreement signed Past Medical History Diagnosis Date ??? Major depression ??? Hypertension ??? ADD (attention deficit disorder) Past Surgical History Procedure Laterality Date ??? C nonspecific procedure SBO w/ 3 resected ??? Colonoscopy 11/05/2015 Dr. [facility] ??? Hysterectomy, jarad has ovaries Relevant Family History: NONE Relevant Social History: NONE ?? Prior to Admission medications Medication Sig Start Date End Date Taking? Authorizing Provider VITAMIN D, CHOLECALCIFEROL, PO Take by mouth daily Yes Reported, Patient amphetamine-dextroamphetamine (ADDERALL XR) 30 MG per capsule 2 po daily 10/12/15 Yes Francia Nair MD lisinopril-hydrochlorothiazide (PRINZIDE,ZESTORETIC) 10-12.5 MG per tablet Take 1 tablet by mouth daily 09/03/15 Yes Francia Nair MD escitalopram (LEXAPRO) 20 MG tablet Take 1 tablet (20 mg) by mouth daily 09/03/15 Yes Francia Nair MD Allergies Allergen Reactions ??? No Known Drug Allergies REVIEW OF SYSTEMS: A relevant review of systems was performed and was negative PHYSICAL EXAM: BP 103/71 mmHg Resp 25 Ht 1.651 m (5' 5) Wt 84.369 kg (186 lb) BMI 30.95 kg/m2 SpO2 95% Estimated body mass index is 30.95 kg/(m^2) as calculated from the following: Height as of this encounter: 1.651 m (5' 5). Weight as of this encounter: 84.369 kg (186 lb). GENERAL APPEARANCE: alert, and oriented MENTAL STATUS: alert AIRWAY EXAM: Normal RESP: lungs clear to auscultation - no rales, rhonchi or wheezes CV: regular rates and rhythm DIAGNOSTICS: Not indicated IMPRESSION ASA Class 2 - Mild systemic disease PLAN: Plan for colonoscopy. We discussed the risks, benefits and alternatives and the patient wished to proceed. Signed Electronically by: Reyna Helm November 05, 2015 documented in this encounter Plan of Treatment Not on filedocumented as of this encounter Procedures Procedure Name Priority Date/Time Associated Comments Diagnosis SURGICAL PATHOLOGY Routine 11/05/2015 11:10 Resul ts for this EXAM AM CDT procedure are i n the results section. COLONOSCOPY, WITH 11/05/2015 10:05 screening POLYPECTOMY AND AM CDT BIOPSY Special Needs Ref: deisy COLONOSCOPY Routine 11/05/2015 10:01 AM CDT Resu lts for this procedure are in the results section . documented in this encounter Results Surgical pathology exam (11/05/2015 11:10 AM CDT) Component Value Ref Test Analysis Performed At [facility] Range Method Time Signature Copath Report Patient Name: ROBBIE HARRY MR#: [id number] Specimen #: [id number] Collected: 11/05/2015 Received: 11/05/2015 Reported: 11/06/2015 15:20 Ordering Phy(s): REYNA HELM SPECIMEN(S): A: Colon polyp, transverse B: Sigmoid colon polyp FINAL DIAGNOSIS: A. Colon, transverse, polypectomy: - Tubular adenoma. B. Colon, sigmoid, polypectomy: - Hyperplastic polyp. Electronically signed out by: Juan Manuel Escalera M.D. CLINICAL HISTORY: Screening. GROSS: A: ??The specimen is received in formalin labeled with the p atient's name, identifying information and transverse colon polyp . ??It consists of a 0.4 cm luo tissue fragment submitted entirely in 1 block. B: ??The specimen is received in formalin labeled with the p atient's name, identifying information and sigmoid colon polyp . ?? It consists of a 0.5 cm luo tissue fragment. ??Submitted entirely in 1 b lock. (Dictated by: Cuba Mejia 11/05/2015 01:00 PM) MICROSCOPIC: A. Sections show a tubular adenoma. ??There is no evidence o f high-grade dysplasia or malignancy. B. Sections show a hyperplastic polyp. ??There is no evidenc e of adenoma or malignancy. CPT Codes: A: 31312-JQ5 B: 42153-UB0 TESTING LAB LOCATION: [facility] [address], [place] ??[address] COLLECTION SITE: Client: [facility] Location: [facility] (R) Specimen (Source) Anatomical Collection Method Collection Time Re ceived Time Location / / Volume Laterality Polyp LARGE INTESTINE 11/05/2015 11:10 (morphologic PART / Unknown AM CDT abnormality) Polyp SIGMOID COLON PART 11/05/2015 11:16 (morphologic / Unknown AM CDT abnormality) Reyna Helm MD LAB - [facility] Performing Organization Address City/State/ZIP Code Phon e Number COPATH COLONOSCOPY (11/05/2015 10:01 AM CDT) [facility] gist Method Time Signature COLONOSCOPY [facility] RAD IOLOGY RESULTS Patient Name: Robbie Harry ?Procedure Date: 10:01 AM ? Accou nt Number: [id number] Date of : 1960 ?Admit Type: Out patient Age: 55 ? Gender: Female Attending MD: Reyna Helm MD ?Instrument Name: 136 Procedure: ?Colonoscopy Indications: ?Screening for colorec tawanna malignant neoplasm Providers: ?Reyna Helm MD, Roxanne Frankel RN (Nurse) Referring MD: ? Francia Nair MD Medicines: ?Midazolam 3 mg IV, Fentanyl 100 micrograms IV Complications: ?No immediate complications. Procedure: [...] Respiratory ?Examination: clear to auscultation. CV Examination: ?regular rate and rhythm. ASA Grade Assessment: II - ?A patient with mild systemic disease. After ?reviewing the risks and benefits, the patient was ?deemed in satisfactory condition to undergo the ?procedure. The anesthesia plan was to use moderate ?sedation / analgesia (conscious sedation). ?Immediately prior to administration of medications, ?the patient was re-assessed for adequacy to receive ?sedatives. The heart rate, respiratory rate, oxygen ?saturations, blood pressure, adequacy of pulmonary ?ventilation, and response to care were monitored ?throughout the procedure. The physical status of ?the patient was re-assessed after the procedure. ?After obtaining informed consent, the colonoscope ?was passed under direct vision. Throughout the ?procedure, the patient's blood pressure, pulse, and ?oxygen saturations were monitored continuously. The ?[id number] was introduced through the anus and ?advanced to the cecum, identified by appendiceal ?orifice and ileocecal valve. The colonoscopy was ?performed without difficulty. The patient tolerated ?the procedure well. The quality of the bowel ?preparation was good. ? Findings: ? The perianal and digital rectal examinations were nor mal. ? A sessile polyp was f ound in the transverse colon. The polyp was 2 mm in ? size. The polyp was removed with a jumbo cold force ps. Resection and ? retrieval were complete. ? A sessile polyp was found in the sigmoid colon. The polyp was 2 mm in ? size. The polyp was removed with a jumbo cold force ps. Resection and ? retrieval were complete. ? The exam was otherwise without abnormality on d irect and retroflexion ? views. ? Impression: ? - One 2 mm polyp in the transverse colon. Resected ?and retrieved. ?- One 2 mm polyp in the sigmoid colon. Resected and ?retrieved. ?- The examination was otherwise normal on direct ?and retroflexion view s. Recommendation: ? - Repeat colonoscopy in 5-10 years for surveillance ?based on pathology re sults. ? Reyna Helm MD 11/05/2015 11:28 AM Number of Addenda: 0 Note Initiated On: 11/05/2015 10:01 AM MRN: ?[id number] Procedure Date: ? 11/05/2015 10:01:32 AM Scope Withdrawal Time: 0 hours 14 minutes 21 seconds Total Procedure Duration: 0 hours 18 minutes 25 seconds Estimated Blood Loss: ? Scope In: 11:00:54 AM Scope Out: 11:19:19 AM Specimen (Source) Anatomical Collection Method Collection Time Re ceived Time Location / / Volume Laterality 11/05/2015 10:01 AM CDT Francia Nair MD PROCEDURES Performing Organization Address City/State/ZIP Code Phon e Number RADIOLOGY RESULTS documented in this encounter Visit Diagnoses Not on filedocumented in this encounter Administered Medications Inactive Administered Medications - up to 3 most recent administrations Medication Order MAR Action Action Date Dose Rate Site FentaNYL Citrate (PF) Given 11/05/2015 10:57 AM CDT 100 mcg (SUBLIMAZE) injection PRN, Starting on 11/05/15 at 1057, Intra-procedure midazolam (VERSED) injection Given 11/05/2015 11:05 AM CDT 1 mg PRN, Starting on 11/05/15 at 1057, Intra-procedure Given 11/05/2015 10:57 AM CDT 2 mg sodium chloride (PF) 0.9% PF flush 3 mL Given 11/05/2015 11:05 AM CDT 3 mLs 3 mL, Intravenous, EVERY 1 HOUR PRN, line flush, post meds or blood draw, Starting on Thu11/05/15 at 0956, for peripheral IV flush post IV meds, Pre-procedure Given 11/05/2015 10:57 AM CDT 3 mLs documented in this encounter Active and Recently Administered Medications Times are shown in CDT. PRN Medication Order 11/03/2015 11/04/2015 11/05/2015 FentaNYL Citrate (PF) (SUBLIMAZE) injection (CANCELED) 1057 (Given - Provider: Roxanne Frankel RN - Comment: vorb) PRN, Starting Thu11/05/15 at 1057, Intra-procedure midazolam (VERSED) injection (CANCELED) 1057 (Given - Provider: Roxanne Frankel RN - Comment: vorb)1105 (Given - Provider: Roxanne Frankel RN - Comment: vorb) PRN, Starting Thu11/05/15 at 1057, Intra-procedure sodium chloride (PF) 0.9% PF flush 3 mL (CANCELED) 1057 (Given - Provider: Roxanne Frankel, ALEX)1105 (Given - Provider: Roxanne Frankel, RN) 3 mL, Intravenous, EVERY 1 HOUR PRN, harlan e flush, post meds or blood draw, Starting Thu11/05/15 at 0956, for peripheral IV flush post IV meds, Pre-procedure documented in this encounter Additional Health Concerns Assessment Noted Time PHQ-9 Depression Total Score: 4 09/04/2015 7:14 AM CDT documented as of this encounter Care Teams Tool Planner Relationship Specialty Start Date End Date Francia Nair MD PCP - General Internal Medicine 01/28/13 [address] [place] [address] Francia Nair MD PCP - Assigned PCP 01/07/13 06/29/18 [address] [address] Francia Nair MD Assigned PCP 01/07/[address] [address] documented as of this encounter
--- OUTSIDE RECORDS SUMMARY | 2022-01-30 11:38 | XMS_ITS | Encounter Summary ---
:1960 Author Organization [facility] Address [address] [place] [address] Care Team Providers Name Role Phone Francia Nair MD Primary Care Provider Francia Nair MD Unavailable Francia Nair MD Unavailable Reason for Visit Reason Onset Date Comments Patient Request 05/21/2016 Adderall Encounter Details Date Type Department Care Team Description 05/21/2016 Telephone [facility] Francia Nair MD Patient Request [facility] [address] (Adderall) [address] [place] [address] [place], [place] [phone] (Wo rk) [id number] [phone] Social History Tobacco Use Types Packs/Day Years [...] How often do you attend temple or hoahaoism Never 08/12/2021 services? 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 STANT SITE MANAGER Telephone Encounter - Francia Nair MD - 05/22/2016 7:41 AM CST Done, in future please cue up the refill. STANT SITE MANAGER Telephone Encounter - Jenny Varma RN - 05/21/2016 2:41 PM CST Adderall Last Written Prescription Date: 04/08/16 Last Fill Quantity: 60, # refills: 0 Last Office Visit with [facility] [place] [place], [facility] or Health prescribing provider: 09/03/15 Future Office visit: Routing refill request to provider for review/approval because: Drug not on the [facility] [place] or Health refill protocol or controlled substance STANT SITE MANAGER Telephone Encounter - Marissa Quintana - 05/21/2016 2:38 PM CST Reason for Call: Medication or medication refill: Do you use a [facility]? Name of the pharmacy and phone number for the current request: [facility] [address] ([place]) - [phone] Name of the medication requested: ADDERALL Other request: NONE Can we leave a detailed message on this number? YES Phone number patient can be reached at: Cell number on file: Telephone Information: Best Time: anytime Call taken on 05/21/2016 at 2:39 PM by Marissa Quintana STANT SITE MANAGER documented in this encounter Plan of Treatment Not on filedocumented as of this encounter Visit Diagnoses Diagnosis ADD (attention deficit disorder) - Prima ry Attention deficit disorder without menti on of hyperactivity documented in this encounter Additional Health Concerns Assessment Noted Time PHQ-9 Depression Total Score: 4 09/04/2015 7:14 AM CDT documented as of this encounter Care Teams Chiropractor Assistant Relationship Specialty Start Date End Date Francia Nair MD PCP - General Internal Medicine 01/28/13 [address] [place] [address] [phone] Francia Nair MD PCP - Assigned PCP 01/07/13 06/29/18 [address] [place] [phone] Francia Nair MD Assigned PCP 01/07/13 [address] [place] [address] [phone] documented as of this encounter
--- OUTSIDE RECORDS SUMMARY | 2022-01-30 11:38 | XMS_ITS | Encounter Summary ---
:1960 Author Organization [place] Address [address] [place] [address] Care Team Providers Name Role Phone Francia Nair MD Primary Care Provider Francia Nair MD Unavailable Francia Nair MD Unavailable Reason for Visit Reason Onset Date Comments Refill Request 08/14/2015 Escitalopram Encounter Details Date Type Department Care Team Description 08/14/2015 Refill [facility] Francia Nair MD Refill Request Clinic [place] [address] (Escitalopram) [address] [place] [address] [place] [address] [place], [place] [phone] (Wo rk) [address] [phone] Social History Tobacco Use Types Packs/Day Years Used Date Current Every Day Smoker Smokeless Tobacco: Never Used Comments: 3/4 PPD Alcohol Use Standard Drinks/Week Comments Yes 0 (1 standard drink = 0.6 oz pure alcoho l) ocassional 1-2 per year Alcohol Habits Answer Date Recorded How often do you have a drink containing alcohol? 2-4 times a month 08/12/2021 How many drinks containing alcohol do you have on a 1 or 2 08/12/2021 typical day when you are drinking? How often do you have six or more drinks on one Never 08/12/2021 occasion? Comment: Not asked Social Isolation Answer Date Recorded In a typical week, how many times do you talk on the Three t imes a week 08/12/2021 phone with family, friends, or neighbors? How often do you get together with friends or Once a week 08/12/2021 relatives? How often do you attend anabaptist or religion Never 08/12/2021 services? Do you belong to any clubs or organizations such as Yes 08/12/2021 anabaptist groups, unions, fraternal or athletic groups, or [...] this encounter Miscellaneous Notes Telephone Encounter - Adrienne Ortiz - 08/24/2015 11:20 AM CDT Patient has appointment scheduled for 09/03/15. Telephone Encounter - Francia Nair MD - 08/16/2015 11:40 AM CDT Call and advise needs appt. Telephone Encounter - Sussy Finley RN - 08/16/2015 11:16 AM CDT Routing refill request to provider for review/approval because: Patient needs to be seen because it has been more than 1 year since last office visit. And most recent phq9 not current and outside SO parameters. Please advise, thanks. Telephone Encounter - Joselin Foreman - 08/14/2015 6:14 PM CDT Escitalopram Last Written Prescription Date: 02/16/15 Last Fill Quantity: 90, # refills: 1 [place] [facility] [place] care provider: 08/07/14 Last PHQ-9 score on record= PHQ-9 SCORE 08/07/2014 Total Score 6 documented in this encounter Plan of Treatment Not on filedocumented as of this encounter Visit Diagnoses Diagnosis Major depressive disorder, recurrent epi sode, moderate (H) - Primary Major depressive disorder, recurrent epi sode, moderate documented in this encounter Care Teams Medical Interpreter Relationship Specialty Start Date End Date Francia Nair MD PCP - General Internal Medicine 01/28/13 Mary [facility] [address] [place], [place] [address] Francia Nair MD PCP - Assigned PCP 01/07/13 06/29/18 [address] [place] [address] [phone] Francia Nair MD Assigned PCP 01/07/13 [address] [place] [address] [phone] documented as of this encounter
--- OUTSIDE RECORDS SUMMARY | 2022-01-30 11:38 | XMS_ITS | Encounter Summary ---
:1960 Author Organization [place] Address [address] [place] [address] Care Team Providers Name Role Phone Francia Nair MD Primary Care Provider Francia Nair MD Unavailable Francia Nair MD Unavailable Julieth Montes OD Unavailable [phone] Ip, Alber Vuong MD Unavailable Encounter Details Date Type Department Care Team Description 07/25/2016 Historic Results Social History Tobacco Use Types Packs/Day Years [...] 08/12/2021 relatives? How often do you attend orthodox or pentecostal Never 08/12/2021 services? Do you belong to any clubs or organizations such as Yes 08/12/2021 orthodox groups, unions, fraternal or athletic groups, or [...] Assessment Noted Time PHQ-9 Depression Total Score: 11 07/26/2016 7:12 AM CD T documented as of this encounter Care Teams Hop Farmer Relationship Specialty Start Date End Date Francia Nair MD PCP - General Internal Medicine 01/28/[address] [place], [place] [phone] Francia Nair MD PCP - Assigned PCP 01/07/13 06/29/[address] [place], [place] [phone] Francia Nair MD Assigned PCP 01/07/[address] [place], [place] [address] Julieth Montes Assigned Surgical 03/17/21 LEANA Felton Provider [address] [facility] [address] [phone] Alber Mendez MD Assigned Heart and 08/11/21 [address] Vascular Provider [address] [id number] documented as of this encounter
--- OUTSIDE RECORDS SUMMARY | 2022-01-30 11:38 | XMS_ITS | Encounter Summary ---
:1960 Author Organization [facility] Address [address] [place] [address] Care Team Providers Name Role Phone Ita Nair MD Primary Care Provider Ita Nair MD Unavailable Ita Nair MD Unavailable Encounter Details Date Type Department Care Team Description 08/04/2016 [facility] Ess ential hypertension (Primary Dx); [facility] Screening for viral disease; [address] [place] [address] Social History Tobacco Use Types Packs/Day Years [...] 08/12/2021 relatives? How often do you attend druze or mormonism Never 08/12/2021 services? Do you belong to any clubs or organizations such as Yes 08/12/2021 druze groups, unions, fraternal or athletic groups, [...] documented as of this encounter Miscellaneous Notes Addendum Note - Ita Nair MD - 08/07/2016 7:43 AM CDT Addended by: ITA NAIR on: 08/07/2016 07:43 AM Modules accepted: Orders documented in this encounter Plan of Treatment Not on filedocumented as of this encounter Procedures Procedure Name Priority Date/Time Associated Diagnosis Comme nts HEPATITIS C SCREEN Routine 08/04/2016 8:31 AM Screening for vi ral Results for this REFLEX TO HCV RNA CDT disease procedure are in QUANT AND GENOTYPE the resul ts section. ALBUMIN RANDOM URINE Routine 08/04/2016 8:31 AM Essential R esults for this QUANTITATIVE CDT hypertension procedure are i n the results section. LIPID REFLEX TO Routine 08/04/2016 8:31 AM Essential Result s for this DIRECT LDL PANEL CDT hypertension procedure a re in the results section. BASIC METABOLIC PANEL Routine 08/04/2016 8:31 AM Essential Results for this CDT hypertension procedure are i n the results section. documented in this encounter Results Hepatitis C Screen Reflex to HCV RNA Quant and Genotype (08/04/2016 8:31 AM CDT) Component Value Ref Test Analysis Performed At Patholo gist Range Method Time Signature Hepatitis C Nonreactive NR [facility] Antibody Assay performance character istics have not been established for newborns, [facility] infants, and children [facility] Specimen Anatomical Collection Method Collection Time Receive d Time (Source) Location / / Volume Laterality Blood specimen 08/04/2016 8:31 AM 017 8:32 (specimen) CDT AM CDT Ita Nair MD LAB - BLOOD ORDERABLES Performing Organization Address City/State/ZIP Code Phon e Number [facility] [address] [place], [place] [id number] [place] [address] Albumin Random Urine Quantitative (08/04/2016 8:31 AM CDT) P athologist Signature Creatinine 216 mg/dL [place] Urine [facility] Albumin Urine 10 mg/L [place] mg/L [facility] Albumin Urine 4.86 0 - 25 [place] mg/g Cr mg/g Cr [facility] Specimen Anatomical Collection Method Collection Time Receive d Time (Source) Location / / Volume Laterality Urine specimen 08/04/2016 8:31 AM 017 8:32 (specimen) CDT AM CDT Ita Nair MD LAB - URINE ORDERABLES Performing Organization Address City/[facility]/ZIP Code Phon e [place] [facility] [address] [address] [facility] [address] [address], U [phone] (ABNORMAL) Lipid Profile with reflex to direct LDL (08/04/2016 8:31 AM CDT) athologist Signature Cholesterol 212 (H) <200 mg/dL [facility][1] Comment: Desirable: <200 mg/dl Triglycerides 226 (H) <150 mg/dL [facility] Comment: Borderline high: ??150-199 mg/dl High: ? 200-499 mg/dl Very high: ? >499 mg/dl Fasting specimen HDL Cholesterol 41 (L) >49 mg/dL [place] [facility] LDL Cholesterol Calculated 126 (H) <100 mg/dL [facility] Comment: Above desirable: ??100-129 mg/dl Borderline High: ??130-159 mg/dL High: ? 160-189 mg/dL Very high: ? >189 mg/dl Non HDL Cholesterol 171 (H) <130 mg/dL [facility][1] Comment: Above Desirable: ??130-159 mg/dl Borderline high: ??160-189 mg/dl High: ? 190-219 mg/dl Very high: ? >219 mg/dl Specimen Anatomical Collection Method Collection Time Receive d Time (Source) Location / / Volume Laterality Blood specimen 08/04/2016 8:31 AM 017 8:32 (specimen) CDT AM CDT Ita Nair MD LAB - BLOOD ORDERABLES Performing Organization Address City/State/ZIP Code Phon e [place] [facility][1] [address], [place] [address] (ABNORMAL) Basic metabolic panel (08/04/2016 8:31 AM CDT) Analysis Performed At [facility] Time Signature Sodium 142 133 - 144 [place] mmol/L [facility] Potassium 3.7 3.4 - 5.3 [place] mmol/L [facility] Chloride 106 94 - 109 [place] mmol/L [facility] Carbon Dioxide 26 20 - 32 [place] mmol/L [facility] Anion Gap 10 3 - 14 [place] mmol/L [facility] Glucose 116 (H) 70 - 99 [place] mg/dL [facility] Comment: Fasting specimen Urea Nitrogen 12 7 - 30 mg/dL [place] [facility]IN ICS [facility] Creatinine 0.65 0.52 - 1.04 [facility] mg/dL [facility] GFR Estimate >90 >60 mL/min/1.7m2 [place] C LINICS Non GFR Calc [facility] GFR Estimate If Black >90 >60 mL/min/1.7m2 [facility] GFR Calc [place] [facility] Calcium 9.2 8.5 - 10.1 mg/dL [place] [facility] Specimen Anatomical Collection Method Collection Time Receive d Time (Source) Location / / Volume Laterality Blood specimen 08/04/2016 8:31 AM 017 8:32 (specimen) CDT AM CDT Ita Nair MD LAB - BLOOD ORDERABLES Performing Organization Address City/State/ZIP Code Phon e Number [facility][1] [address] [place] [address] documented in this encounter Visit Diagnoses Diagnosis Essential hypertension - Primary Unspecified essential hypertension Screening for viral disease Special screening examination for unspec ified viral disease Abnormal blood sugar Other abnormal glucose documented in this encounter Additional Health Concerns Assessment Noted Time PHQ-9 Depression Total Score: 11 07/26/2016 7:12 AM CD T documented as of this encounter Care Teams Table Games Floor Supervisor Relationship Specialty Start Date End Date Ita Nair MD PCP - General Internal Medicine 01/28/13 [address] [place] [phone] Ita Nair MD PCP - Assigned PCP 01/07/13 06/29/18 [address] [place] [address] [phone] Ita Nair MD Assigned PCP 01/07/13 [address] [place] [address] [phone] documented as of this encounter
--- OUTSIDE RECORDS SUMMARY | 2022-01-30 11:38 | XMS_ITS | Encounter Summary ---
:1960 Author Organization [place] Address [address] [place] [address] Care Team Providers Name Role Phone Francia Nair MD Primary Care Provider Francia Nair MD Unavailable Francia Nair MD Unavailable Reason for Visit Reason Comments Recheck Medication lilia 09/03/2015: HTN, ADD MED ICATION- some sx of depression, is medication not working?? Ear Problem left ear- worsening hearing loss Encounter Details Date Type Department Care Team Description 07/25/2016 Office Visit [facility] Francia Nair MD Major depressive disorder, recurrent epi sode, moderate (H) (Primary Dx); Clinic [place] [address] Essential hypertension; [address] [place] [address] Encounter for screening mammogram for east cancer; [place], [place] Screening for viral disease [place], [place] [phone] [phone] Social History Tobacco Use Types Packs/Day Years Used Date Current Every Day Smoker Cigarettes Smokeless Tobacco: Never Used Tobacco Cessation: Ready to Quit: Yes; C ounseling Given: Yes Comments: 3/4 PPD Alcohol Use [...] How often do you attend muslim or episcopal Never 08/12/2021 services? Do you [...] Sign Reading Time Taken Comments Blood Pressure 126/84 07/25/2016 2:10 PM CDT Pulse 62 07/25/2016 2:10 PM CDT Temperature 36.6 ??C (97.8 ??F) 07/25/2016 2:10 PM CDT Respiratory Rate 16 07/25/2016 2:10 PM CDT Oxygen Saturation 97% 07/25/2016 2:10 PM CDT Inhaled Oxygen Concentration - - Weight 88.5 kg (195 lb 1.6 oz) 07/25/2016 2:10 PM CDT Height 165.1 cm (5' 5) 07/25/2016 2:10 PM CDT Body Mass Index 32.47 07/25/2016 2:10 PM CDT documented in this encounter Patient Instructions Patient InstructionsFrancia Nair MD - 07/25/2016 2:00 PM CDT Decrease Lexapro to 1/2 tablet daily for 5 days then stop. Start the Prozac (fluoxetine) at 1 capsule daily on the 4th day of 1/2 tab lexapro. Increase to 2 capsules after a week on 1, then go up to 3 in a week then 4 and hold there. documented in this encounter Progress Notes Francia Nair MD - 07/25/2016 2:00 PM CDT SUBJECTIVE: Robbie Miller is a 56 year old female who presents to clinic today for the following health issues: She is having some issues with concentration, focus, forgetfulness. She is not sure if this is related to mood. She feels Hypertension Follow-up ?? Outpatient blood pressures are not being checked. ?? Low Salt Diet: not monitoring salt Depression Followup ?? Status since last visit: Worsened ?? See PHQ-9 for current symptoms. Other associated symptoms: Concentration, repeating things, slow thought process, memory loss, feels stuck- foggy in thinking. ?? Complicating factors: Significant life event: No Current substance abuse: Smoking- Anxiety or Panic symptoms: No PHQ-9 Mauritanian PHQ-9 Any Language ?? Amount of exercise or physical activity: None ?? Problems taking medications regularly: No ?? Medication side effects: none ?? Diet: regular (no restrictions) Other problems: 1. ADD: seems controlled 2. Hearing loss: more left ear loss. She wants to be checked for wax before hearing aid appointment Current Concerns: none Patient Active Problem List Diagnosis ??? Tobacco use disorder ??? Essential hypertension ??? Obesity ??? ADD (attention deficit disorder) ??? CARDIOVASCULAR SCREENING; LDL GOAL LESS THAN 160 ??? Major depression, recurrent (H) ??? Controlled substance agreement signed Current Outpatient Prescriptions Medication Sig Dispense Refill ??? FLUoxetine (PROZAC) 10 MG capsule 1 po daily x7 days, then 2 po daily x7 days, then 3 po daily x7 days, then 4 po daily. 80 capsule 1 ??? amphetamine-dextroamphetamine (ADDERALL XR) 30 MG per 24 hr capsule 2 po daily 60 capsule 0 ??? VITAMIN D, CHOLECALCIFEROL, PO Take by mouth as needed ??? lisinopril-hydrochlorothiazide (PRINZIDE,ZESTORETIC) 10-12.5 MG per tablet Take 1 tablet by mouth daily 90 tablet 3 Social History Substance Use Topics ??? Smoking status: Current Every Day Smoker Types: Cigarettes ??? Smokeless tobacco: Never Used Comment: 3/4 PPD ??? Alcohol use Yes Comment: ocassional 3-4 drinks per week Reviewed and updated as needed this visit by clinical staff Tobacco Allergies Meds Med Hx Surg Hx Fam Hx Soc Hx Reviewed and updated as needed this visit by Provider ROS: No fever, chills, no dyspnea on exertion, no chest pain, palpitations, PND, orthopnea, edema, syncope, headache, abdominal pain OBJECTIVE: BP 126/84 Pulse 62 Temp 97.8 ??F (36.6 ??C) (Oral) Resp 16 Ht 5' 5 (1.651 m) Wt 195 lb 1.6 oz (88.5 kg) SpO2 97% BMI 32.47 kg/m2 Body mass index is 32.47 kg/(m^2). Ears: no wax Lungs: clear CV: normal S1, S2 without murmur, S3 or S4. No edema Pulses full, no carotid bruits PHQ-9 SCORE 09/03/2015 09/03/2015 07/25/2016 Total Score - - - Total Score 4 4 11 MORENA-7 SCORE 08/10/2014 07/25/2016 Total Score 6 - Total Score - 5 ASSESSMENT/PLAN: 1. Major depressive disorder, recurrent episode, moderate (H) Discussed options. She is on highest dose lexapro so recommend change to prozac. Advised on possibleexpected benefits, side effects. - FLUoxetine (PROZAC) 10 MG capsule; 1 po daily x7 days, then 2 po daily x7 days, then 3 po daily x 7 days, then 4 po daily. Dispense: 80 capsule; Refill: 1 2. Essential hypertension Controlled, continue med 3. Encounter for screening mammogram for breast cancer due - *MA Screening Digital Bilateral; Future Francia Nair MD [facility] documented in this encounter Nursing Notes Breanne Chirinos CMA - 07/25/2016 2:00 PM CDT Chief Complaint Patient presents with ??? Recheck Medication lilia 09/03/2015: HTN, ADD MEDICATION- some sx of depression, is medication not working? Ear Problem left ear- worsening hearing loss Initial BP 126/84 Pulse 62 Temp 97.8 ??F (36.6 ??C) (Oral) Resp 16 Ht 5' 5 (1.651 m) Wt 195 lb 1.6 oz (88.5 kg) SpO2 97% BMI 32.47 kg/m2 Estimated body mass index is 32.47 kg/(m^2) as calculated from the following: Height as of this encounter: 5' 5 (1.651 m). Weight as of this encounter: 195 lb 1.6 oz (88.5 kg). Medication Reconciliation: rebecca Chirinos CMA Discussed Health Maintenance: Patient agreed to schedule Mammogram. Order have been place and information given to patient. documented in this encounter Plan of Treatment Not on filedocumented as of this encounter Results Hepatitis C Screen Reflex to HCV RNA Quant and Genotype (08/04/2016 8:31 AM CDT) Component Value Ref Test Analysis Performed At [facility] gist Range Method Time Signature Hepatitis C Nonreactive NR [facility] Antibody Assay performance character istics have not been established for [facility], [facility] infants, and children [facility] Specimen Anatomical Collection Method Collection Time Receive d Time (Source) Location / / Volume Laterality Blood specimen 08/04/2016 8:31 AM 017 8:32 (specimen) CDT AM CDT Francia Nair MD LAB - BLOOD ORDERABLES Performing Organization Address City/[facility]/ZIP Code Phon e Number [address] [address] [place] Albumin Random Urine Quantitative (08/04/2016 8:31 AM CDT) athologist Signature Creatinine 216 mg/dL [place] Urine [facility] Albumin Urine 10 mg/L [place] mg/L [facility] Albumin Urine 4.86 0 - 25 [place] mg/g Cr mg/g Cr [facility] Specimen Anatomical Collection Method Collection Time Receive d Time (Source) Location / / Volume Laterality Urine specimen 08/04/2016 8:31 AM 017 8:32 (specimen) CDT AM CDT Francia Nair MD LAB - URINE ORDERABLES Performing Organization Address City/State/ZIP Code Phon e Number [facility] [address] [address] [facility] [address] [address], U [phone] (ABNORMAL) Lipid Profile with reflex to direct LDL (08/04/2016 8:31 AM CDT) athologist Signature Cholesterol 212 (H) <200 mg/dL [facility] [place] Comment: Desirable: <200 mg/dl Triglycerides 226 (H) <150 mg/dL [facility] Comment: Borderline high: ??150-199 mg/dl High: ? 200-499 mg/dl Very high: ? >499 mg/dl Fasting specimen HDL Cholesterol 41 (L) >49 mg/dL [place] CLINI CS [facility] LDL Cholesterol Calculated 126 (H) <100 mg/dL [facility] Comment: Above desirable: ??100-129 mg/dl Borderline High: ??130-159 mg/dL High: ? 160-189 mg/dL Very high: ? >189 mg/dl Non HDL Cholesterol 171 (H) <130 mg/dL [facility] Comment: Above Desirable: ??130-159 mg/dl Borderline high: ??160-189 mg/dl High: ? 190-219 mg/dl Very high: ? >219 mg/dl Specimen Anatomical Collection Method Collection Time Receive d Time (Source) Location / / Volume Laterality Blood specimen 08/04/2016 8:31 AM 017 8:32 (specimen) CDT AM CDT Francia Nair MD LAB - BLOOD ORDERABLES Performing Organization Address City/State/ZIP Code Phon e Number [facility] [address] [place] [address] (ABNORMAL) Basic metabolic panel (08/04/2016 8:31 AM CDT) Analysis Performed At Patho logist Time Signature Sodium 142 133 - 144 [place] mmol/L [facility] Potassium 3.7 3.4 - 5.3 [place] mmol/L [facility] Chloride 106 94 - 109 [place] mmol/L [facility] Carbon Dioxide 26 20 - 32 [place] mmol/L [facility] Anion Gap 10 3 - 14 [place] mmol/L [facility] Glucose 116 (H) 70 - 99 [place] mg/dL [facility] Comment: Fasting specimen Urea Nitrogen 12 7 - 30 mg/dL [facility] ICS [facility] Creatinine 0.65 0.52 - 1.04 [facility] mg/dL [facility] GFR Estimate >90 >60 mL/min/1.7m2 [facility] LINICS Non GFR Calc [facility] GFR Estimate If Black >90 >60 mL/min/1.7m2 F [facility] GFR Calc [place] [place] Calcium 9.2 8.5 - 10.1 mg/dL [facility] ICS [facility] Specimen Anatomical Collection Method Collection Time Receive d Time (Source) Location / / Volume Laterality Blood specimen 08/04/2016 8:31 AM 017 8:32 (specimen) CDT AM CDT Francia Nair MD LAB - BLOOD ORDERABLES Performing Organization Address City/State/ZIP Code Phon e Number [facility] [address] [place] [address] documented in this encounter Visit Diagnoses Diagnosis Major depressive disorder, recurrent epi sode, moderate (H) - Primary Major depressive disorder, recurrent epi sode, moderate Essential hypertension Unspecified essential hypertension Encounter for screening mammogram for br east cancer Screening for viral disease Special screening examination for unspec ified viral disease documented in this encounter Additional Health Concerns Assessment Noted Time PHQ-9 Depression Total Score: 11 07/26/2016 7:12 AM CD T documented as of this encounter Care Teams Auto Inspector Relationship Specialty Start Date End Date Francia Nair MD PCP - General Internal Medicine 01/28/[address] [place] [address] Francia Nair MD PCP - Assigned PCP 01/07/13 06/29/[address] [place] [address] Francia Nair MD Assigned PCP 01/07/[address] [place] [address] documented as of this encounter
--- OUTSIDE RECORDS SUMMARY | 2022-01-30 11:38 | XMS_ITS | Encounter Summary ---
:1960 Author Organization [place] Address [address] [place] [address] Care Team Providers Name Role Phone Francia Nair MD Primary Care Provider Francia Nair MD Unavailable Francia Nair MD Unavailable Reason for Visit Reason Comments Medication Refill prozac Encounter Details Date Type Department Care Team Description 04/15/2017 Refill [facility] Francia Nair MD Medication Refill Clinic [place] [address] (prozac) [address] 200 [place] [address] [place], [place] [phone] (Wo rk) [phone] [phone] Social History Tobacco Use Types Packs/Day Years [...] 08/12/2021 relatives? How often do you attend latter-day or orthodoxy Never 08/12/2021 services? Do you belong to any clubs or organizations such as Yes 08/12/2021 latter-day groups, unions, fraternal or athletic groups, or [...] Telephone Encounter - Sussy Finley RN - 04/16/2017 12:49 PM CST Requested Prescriptions Pending Prescriptions Disp Refills ??? FLUoxetine (PROZAC) 20 MG capsule [Pharmacy Med Name: FLUOXETINE 20MG CAPSULES] 180 capsule 0 Sig: TAKE 2 CAPSULES(40 MG) BY MOUTH DAILY SSRIs Protocol Failed 04/15/2017 1:15 PM Failed - PHQ-9 score less than 5 in past 6 months The PHQ-9 criteria is meant to fail. It requires a PHQ-9 score review Failed - Recent (6 mo) or future visit with authorizing provider's specialty Patient had office visit in the last 6 months or has a visit in the next 30 days with authorizing provider. See chart review. Passed - Medication is NOT Bupropion If the medication is Bupropion (Wellbutrin), and the patient is taking for smoking cessation; OK torefill. Passed - Patient is age 18 or older Passed - No active on record Passed - No positive test in last 12 months Medication is being filled for 1 time refill only due to: Patient needs to be seen because over-due for 6 mo f/u depression. Beautified message sent. ICAL DEVICE SALES REPRESENTATIVE documented in this encounter Plan of Treatment Not on filedocumented as of this encounter Visit Diagnoses Diagnosis Major depression, recurrent (H) Major depressive disorder, recurrent epi sode, unspecified documented in this encounter Additional Health Concerns Assessment Noted Time PHQ-9 Depression Total Score: 11 07/26/2016 7:12 AM CD T documented as of this encounter Care Teams Composition Floor Setter Relationship Specialty Start Date End Date Francia Nair MD PCP - General Internal Medicine 01/28/13 [address] [place] [address] Francia Nair MD PCP - Assigned PCP 01/07/13 06/29/18 [address] [place] [address] Francia Nair MD Assigned PCP 01/07/13 [address] [place] [address] documented as of this encounter
--- OUTSIDE RECORDS SUMMARY | 2022-01-30 11:38 | XMS_ITS | Encounter Summary ---
:1960 Author Organization [place] Address [address] [place] [address] Care Team Providers Name Role Phone Francia Nair MD Primary Care Provider Francia Nair MD Unavailable Francia Nair MD Unavailable Reason for Visit Reason Onset Date Comments Refill Request 08/02/2015 Methylphenidate ER Encounter Details Date Type Department Care Team Description 08/02/2015 Refill [facility] Francia Nair MD Refill Request Clinic [place] [address] (Methylphenidate ER ) [address] [place] [address] [place], [place] [phone] (Wo rk) [address] [phone] Social History Tobacco Use Types Packs/Day Years [...] 08/12/2021 relatives? How often do you attend protestant or gnosticism Never 08/12/2021 services? Do you belong to any clubs or organizations such as Yes 08/12/2021 protestant groups, unions, fraternal or athletic groups, or [...] Notes Telephone Encounter - Adrienne Ortiz - 08/02/2015 1:54 PM CDT Left message for patient that RX is ready for pickers material handlers at the patient coordinator front desk with a picture ID and that she is due for appointment to please call clinic to schedule. Telephone Encounter - Francia Nair MD - 08/02/2015 11:30 AM CDT Do not use a same day; can schedule later. Telephone Encounter - Drea Peter RN - 08/02/2015 8:42 AM CDT Methylphenidate ER refill request. Last Written Prescription Date: 07/02/15 Last Fill Quantity: 30, # refills: 0 Last Office Visit with [facility], [facility] or [facility] prescribing provider: 08/07/14. Pt is due for yearly OV. Same day appointments available tomorrow, if Dr Nair would like her to schedule. Future Office visit: Routing refill request to provider for review/approval because: Drug not on the [facility], [facility] or [facility] refill protocol or controlled substance documented in this encounter Plan of Treatment Not on filedocumented as of this encounter Visit Diagnoses Diagnosis ADD (attention deficit disorder) - Prima ry Attention deficit disorder without menti on of hyperactivity documented in this encounter Care Teams Systems Test Engineer Relationship Specialty Start Date End Date Francia Nair MD PCP - General Internal Medicine 01/28/13 [address] [facility] 200 [place] [address] Francia Nair MD PCP - Assigned PCP 01/07/13 06/29/18 [address] [place] [address] Francia Nair MD Assigned PCP 01/07/13 [address] [place], [place] [phone] documented as of this encounter
--- OUTSIDE RECORDS SUMMARY | 2022-01-30 11:38 | XMS_ITS | Encounter Summary ---
:1960 Author Organization [place] Address [address] [place] [address] Care Team Providers Name Role Phone Francia Nair MD Primary Care Provider Francia Nair MD Unavailable Francia Nair MD Unavailable Reason for Visit Reason Onset Date Comments Panel Management 07/30/2017 Mammo, Depression, M ed check Encounter Details Date Type Department Care Team Description 07/30/2017 [facility] Francia Nair MD Panel Management Clinic [place] [address] (Mammo, Depression, [address] [place] 200 Med check) [place] [address] [place], [place] [phone] (Wo rk) [phone] Social History Tobacco Use Types Packs/Day Years [...] 08/12/2021 relatives? How often do you attend synagogue or congregation Never 08/12/2021 services? Do you belong to any clubs or organizations such as Yes 08/12/2021 synagogue groups, unions, fraternal or athletic groups, or [...] Telephone Encounter - Breanne Chirinos CMA - 08/04/2017 11:08 AM CDT Letter mailed. Telephone Encounter - Breanne Chirinos CMA - 08/03/2017 11:56 AM CDT Left message to call back. Telephone Encounter - Breanne Chirinos CMA - 07/30/2017 10:07 AM CDT Panel Management Review Patient has the following on her problem list: Depression / Dysthymia review Measure: Needs PHQ-9 score of 4 or less during index window. Administer PHQ-9 and if score is 5 or more, send encounter to provider for next steps. 5 - 7 month window range: Due PHQ-9 SCORE 09/03/2015 09/03/2015 07/25/2016 Total Score - - - Total Score 4 4 11 If PHQ-9 recheck is 5 or more, route to provider for next steps. Patient is due for: PHQ9 and DAP Composite cancer screening Chart review shows that this patient is due/due soon for the following Mammogram Summary: Patient is due/failing the following: MAMMOGRAM and PHQ9 Action needed: Patient needs office visit for Depression f/u and will discuss Mammogram. Type of outreach: Phone, left message for patient to call back. Questions for provider review: None Gladis Chirinos CMA Chart routed to Care Team . documented in this encounter Plan of Treatment Not on filedocumented as of this encounter Visit Diagnoses Not on filedocumented in this encounter Additional Health Concerns Assessment Noted Time PHQ-9 Depression Total Score: 11 07/26/2016 7:12 AM CD T documented as of this encounter Care Teams Electric Screw Driver Operator Relationship Specialty Start Date End Date Francia Nair MD PCP - General Internal Medicine 01/28/13 [address] [place] [id number] Francia Nair MD PCP - Assigned PCP 01/07/13 06/29/18 [address] [place] [phone] Francia Nair MD Assigned PCP 01/07/13 [address] [place] [id number] documented as of this encounter
--- OUTSIDE RECORDS SUMMARY | 2022-01-30 11:38 | XMS_ITS | Encounter Summary ---
:1960 Author Organization [place] Address [address] [place] [address] Care Team Providers Name Role Phone Francia Nair MD Primary Care Provider Francia Nair MD Unavailable Francia Nair MD Unavailable Reason for Visit Reason Onset Date Comments Panel Management 09/11/2015 Encounter Details Date Type Department Care Team Description 09/11/2015 Telephone [facility] Kin Nair MD Panel Management [place] [address] [facility] [address] [place] 200 [place] [address] [place] [address] [phone] Social History Tobacco Use Types Packs/Day Years [...] How often do you attend orthodox or catholic Never 08/12/2021 services? Do you belong [...] this encounter Miscellaneous Notes Telephone Encounter - Catherine Mariscal MA - 09/28/2015 3:38 PM CDT Letter mail out. Telephone Encounter - Catherine Mariscal MA - 09/11/2015 4:30 PM CDT Panel Management Review Patient has the following on her problem list: Depression / Dysthymia review PHQ-9 SCORE 08/07/2014 09/03/2015 09/03/2015 Total Score 6 - - Total Score - 4 4 Patient is due for: None Hypertension Last three blood pressure readings: BP Readings from Last 3 Encounters: 09/03/15 122/78 08/07/14 128/76 12/29/13 130/78 Blood pressure: Passed HTN Guidelines: Age 18-59 BP range: Less than 140/90 Age 60-85 with Diabetes: Less than 140/90 Age 60-85 without Diabetes: less than 150/90 Composite cancer screening Chart review shows that this patient is due/due soon for the following Mammogram and Colonoscopy Summary: Patient is due/failing the following: COLONOSCOPY and MAMMOGRAM Action needed: Schedule appt with breast center. Type of outreach: [employer] message. Questions for provider review: None Catherine Mariscal MA Chart routed to Care Team . documented in this encounter Plan of Treatment Not on filedocumented as of this encounter Visit Diagnoses Not on filedocumented in this encounter Additional Health Concerns Assessment Noted Time PHQ-9 Depression Total Score: 4 09/04/2015 7:14 AM CDT documented as of this encounter Care Teams Asphalt Still Operator Relationship Specialty Start Date End Date Francia Nair MD PCP - General Internal Medicine 01/28/13 [address] [facility] 200 [place] [address] Francia Nair MD PCP - Assigned PCP 01/07/13 06/29/18 [address] [place], [place] [phone] Francia Nair MD Assigned PCP 01/07/13 [address] [place], [place] [phone] documented as of this encounter
--- OUTSIDE RECORDS SUMMARY | 2022-01-30 11:38 | XMS_ITS | Encounter Summary ---
:1960 Author Organization [place] Address [address] [place] [address] Care Team Providers Name Role Phone Francia Nair MD Primary Care Provider Francia Nair MD Unavailable Francia Nair MD Unavailable Reason for Visit Reason Onset Date Comments Refill Request 07/02/2015 methylphenidate ER Encounter Details Date Type Department Care Team Description 07/02/2015 Refill [facility] Francia Nair MD Refill Request Clinic [place] [address] (methylphenidate ER ) [address] [place] [address] [place] [address] [place], [place] [phone] (Wo rk) [phone] Social History Tobacco Use Types Packs/Day Years [...] How often do you attend adventism or religion Never 08/12/2021 services? Do you [...] Telephone Encounter - Gale Hammond RN - 07/02/2015 12:51 PM CST Call to pt to update Rx is done and at front desk administrator for bead picker. N COATER Telephone Encounter - Francia Nair MD - 07/02/2015 11:58 AM CST Done. N COATER Telephone Encounter - Gale Hammond RN - 07/02/2015 8:31 AM CST Call received from pt requesting a refill for: methylphenidate ER Last Written Prescription Date: 05/29/15 Last Fill Quantity: 30, # refills: 0 Last Office Visit with [facility], [facility] or [facility] prescribing provider: 08/07/14 Future Office visit: Routing refill request to provider for review/approval because: Drug not on the [facility], [facility] or [facility] refill protocol or controlled substance Call when ready. Pt's , Estephanie Devlin, may bead picker. N COATER documented in this encounter Plan of Treatment Not on filedocumented as of this encounter Visit Diagnoses Diagnosis ADD (attention deficit disorder) - Prima ry Attention deficit disorder without menti on of hyperactivity documented in this encounter Care Teams Automotive Tire Worker Relationship Specialty Start Date End Date Francia Nair MD PCP - General Internal Medicine 01/28/13 [address] [place] [address] Francia Nair MD PCP - Assigned PCP 01/07/13 06/29/18 [address] [place], [place] [phone] Francia Nair MD Assigned PCP 01/07/13 [address] [place] [address] documented as of this encounter
--- OUTSIDE RECORDS SUMMARY | 2022-01-30 11:38 | XMS_ITS | Encounter Summary ---
:1960 Author Organization [facility] Address [address] [place] [address] Care Team Providers Name Role Phone Francia Nair MD Primary Care Provider Francia Nair MD Unavailable Francia Nair MD Unavailable Reason for Visit Reason Comments Medication Refill prinzide Encounter Details Date Type Department Care Team Description 08/26/2017 Refill [facility] Francia Nair MD Medication Refill Clinic [place] [address] (prinzide) [address] [place] 200 [place] [address] [place], [place] [phone] (Wo rk) [address] [phone] Social History Tobacco Use Types Packs/Day Years [...] 08/12/2021 relatives? How often do you attend buddhism or quaker Never 08/12/2021 services? Do you belong to any clubs or organizations such as Yes 08/12/2021 buddhism groups, unions, fraternal or athletic groups, or [...] Telephone Encounter - Sussy Finley RN - 08/26/2017 6:37 PM CDT duplicate documented in this encounter Plan of Treatment Not on filedocumented as of this encounter Visit Diagnoses Diagnosis Essential hypertension Unspecified essential hypertension documented in this encounter Additional Health Concerns Assessment Noted Time PHQ-9 Depression Total Score: 11 07/26/2016 7:12 AM CD T documented as of this encounter Care Teams Leaf Sticker Relationship Specialty Start Date End Date Francia Nair MD PCP - General Internal Medicine 01/28/13 [address] [place] [address] Francia Nair MD PCP - Assigned PCP 01/07/13 06/29/18 [address] [place] [address] Francia Nair MD Assigned PCP 01/07/13 [address] [place] [address] documented as of this encounter
--- OUTSIDE RECORDS SUMMARY | 2022-01-30 11:38 | XMS_ITS | Encounter Summary ---
:1960 Author Organization [place] Address [address] [place] [address] Care Team Providers Name Role Phone Francia Nair MD Primary Care Provider Francia Nair MD Unavailable Francia Nair MD Unavailable Reason for Visit Reason Onset Date Comments Refill Request 10/11/2015 Adderall XR Encounter Details Date Type Department Care Team Description 10/11/2015 Refill [facility] Francia Nair MD Refill Request Clinic [place] [address] (Adderall XR) [address] [place] [address] [place] [address] [place], [place] [phone] (Wo rk) [address] [phone] Social History Tobacco Use Types Packs/Day Years [...] How often do you attend pentecostal or alevism Never 08/12/2021 services? Do you belong to [...] Notes Telephone Encounter - Adrienne Ortiz - 10/12/2015 9:21 AM CDT RX taken to pharmacy and patient advised. Telephone Encounter - Francia Nair MD - 10/12/2015 7:53 AM CDT Done. CSA signed. Telephone Encounter - Valorie Arriola RN - 10/11/2015 3:04 PM CDT Adderall XR. Please bring rx to the [facility] when done and notify pt. Last Written Prescription Date: 09/03/15 Last Fill Quantity: 60, # refills: 0 Last Office Visit with [facility] or [facility] prescribing provider: 09/03/15 Future Office visit: Routing refill request to provider for review/approval because: Drug not on the [facility], [facility] or [facility] refill protocol or controlled substance Valorie Arriola RN documented in this encounter Plan of Treatment Not on filedocumented as of this encounter Visit Diagnoses Diagnosis ADD (attention deficit disorder) - Prima ry Attention deficit disorder without menti on of hyperactivity documented in this encounter Additional Health Concerns Assessment Noted Time PHQ-9 Depression Total Score: 4 09/04/2015 7:14 AM CDT documented as of this encounter Care Teams Chauffeur Motorbus Relationship Specialty Start Date End Date Francia Nair MD PCP - General Internal Medicine 01/28/13 [address] [facility] 200 [place] [address] Francia Nair MD PCP - Assigned PCP 01/07/13 06/29/18 [address] [place] [address] Francia Nair MD Assigned PCP 01/07/13 [address] [place] [address] documented as of this encounter
--- OUTSIDE RECORDS SUMMARY | 2022-01-30 11:38 | XMS_ITS | Encounter Summary ---
:1960 Author Organization [place] Address [address] [place] [address] Care Team Providers Name Role Phone Francia Nair MD Primary Care Provider Francia Nair MD Unavailable Francia Nair MD Unavailable Reason for Visit Reason Onset Date Comments Refill Request 07/25/2016 Prozac - Pharmacy is requesting 90 Day Refills Encounter Details Date Type Department Care Team Description 07/25/2016 Refill [facility] Francia Nair MD Refill Request (Prozac Clinic [place] [address] [facility] Pharmacy is 303 [facility] 200 [place] [address] [place] [address] Refills) [place], [place] [phone] (Wo rk) [address] [phone] Social History Tobacco Use Types Packs/Day Years [...] How often do you attend bahai or zoroastrianism Never 08/12/2021 services? Do you belong to [...] this encounter Miscellaneous Notes Telephone Encounter - Juhi Alcala - 07/25/2016 5:06 PM CDT 90day supply request denied d/t new med and pt needs f/u 1-2 months after start of med. Telephone Encounter - Adrienne Ortiz - 07/25/2016 3:28 PM CDT Prozac - Pharmacy is requesting 90 Day Refills Last Written Prescription Date: 07/25/16 Last Fill Quantity: 80, # refills: 1 Last Office Visit with [facility] primary care provider: 07/25/16 Last PHQ-9 score on record= PHQ-9 SCORE 07/25/2016 Total Score - Total Score 11 documented in this encounter Plan of Treatment Not on filedocumented as of this encounter Visit Diagnoses Diagnosis ADD (attention deficit disorder) Attention deficit disorder without menti on of hyperactivity Major depressive disorder, recurrent epi sode, moderate (H) Major depressive disorder, recurrent epi sode, moderate documented in this encounter Additional Health Concerns Assessment Noted Time PHQ-9 Depression Total Score: 11 07/26/2016 7:12 AM CD T documented as of this encounter Care Teams Green Prize Packer Relationship Specialty Start Date End Date Francia Nair MD PCP - General Internal Medicine 01/28/13 [address] [place] [phone] Francia Nair MD PCP - Assigned PCP 01/07/13 06/29/18 [address] [place] [address] Francia Nair MD Assigned PCP 01/07/13 [address] [facility] 200 [place], [place] [phone] documented as of this encounter
--- OUTSIDE RECORDS SUMMARY | 2022-01-30 11:38 | XMS_ITS | Encounter Summary ---
:1960 Author Organization [place] Address [address] [place] [address] Care Team Providers Name Role Phone Francia Nair MD Primary Care Provider Francia Nair MD Unavailable Francia Nair MD Unavailable Reason for Visit Reason Onset Date Comments Outreach 06/18/2016 [facility] ATT 1 Outreach 06/26/2016 [facility] ATT 2 Outreach 07/03/2016 [facility] ATT 3 Encounter Details Date Type Department Care Team Description 06/18/2016 Telephone [facility] Francia Nair MD Outreach (PHS ATT 1); [facility] [address] Outreach (PHS ATT 2); [facility] [address] [place] [address] Outreach (PHS ATT 3) [place] [address] [place], [place] [phone] (Wo rk) [address] [phone] Social History Tobacco Use Types Packs/Day Years [...] How often do you attend advent or faith Never 08/12/2021 services? Do you [...] this encounter Miscellaneous Notes Telephone Encounter - Nisha Camacho - 07/03/2016 1:28 PM CST 07/03/2016 Call Regarding Preventive Health Screening Mammogram and Physical Attempt 3 Message on voicemail Comments: Outreach Charge Lpn KV KNOCKER Telephone Encounter - Elvia Mayen - 06/26/2016 5:53 PM CST 06/26/2016 Call Regarding Preventive Health Screening Mammogram Attempt 2 Message on voicemail Comments: Outreach Charge Lpn CC KNOCKER Telephone Encounter - Nisha Camacho - 06/18/2016 10:15 AM CST 06/18/2016 Call Regarding Preventive Health Screening Mammogram and Physical Attempt 1 Message on voicemail Comments: Outreach Charge Lpn KV KNOCKER documented in this encounter Plan of Treatment Not on filedocumented as of this encounter Visit Diagnoses Not on filedocumented in this encounter Additional Health Concerns Assessment Noted Time PHQ-9 Depression Total Score: 4 09/04/2015 7:14 AM CDT documented as of this encounter Care Teams Signal Supervisor Relationship Specialty Start Date End Date Francia Nair MD PCP - General Internal Medicine 01/28/13 [address] [place] [address] Francia Nair MD PCP - Assigned PCP 01/07/13 06/29/18 [address] [place] [address] Francia Nair MD Assigned PCP 01/07/13 [address] [facility] 200 [place] [address] documented as of this encounter
--- OUTSIDE RECORDS SUMMARY | 2022-01-30 11:38 | XMS_ITS | Encounter Summary ---
:1960 Author Organization [place] Address [address] [place] [address] Care Team Providers Name Role Phone Francia Nair MD Primary Care Provider Francia Nair MD Unavailable Francia Nair MD Unavailable Reason for Visit Auth/Cert Specialty Diagnoses / Procedures Referred By Contact Refer red To Contact Gastroenterology Diagnoses screening Rh Endoscopy Procedures COLONOSCOPY [address] [place] [address] Phone: Fax: Referral ID Status Reason Start Date Expiration Date Visits Requ ested Visits Authorized [id number] 1 1 Encounter Details Date Type Department Care Team Description 11/05/2015 Hospital Encounter [facility] LinkReyna MD [facility] [address] [place] [address] [place], [place] [phone] (Wo rk) [phone] Social History Tobacco Use Types Packs/Day Years [...] How often do you attend temple or worship Never 08/12/2021 services? Do you [...] Sign Reading Time Taken Comments Blood Pressure 111/73 11/05/2015 12:10 PM CDT Pulse - - Temperature - - Respiratory Rate 16 11/05/2015 12:10 PM CDT Oxygen Saturation 95% 11/05/2015 12:10 PM CDT Inhaled Oxygen Concentration - - Weight 84.4 kg (186 lb) 11/05/2015 9:30 AM CDT Height 165.1 cm (5' 5) 11/05/2015 9:30 AM CDT Body Mass Index 30.95 11/05/2015 9:30 AM CDT documented in this encounter Discharge Instructions Discharge InstructionsMarissa Doshi RN - 11/05/2015 11:46 AM CDT Images [...] Ask yourdoctor about supplemental fiber products. ?? [phone] [facility], [address] [place] [address], [place] [address]. All rights reserved. This information is not [...] grain cereal with bran (Chex, Raisin Bran, Jefferson Bran), oatmeal, rolled oats, granola,wheat flakes, brown [...] all kinds OTHER: Popcorn, any spices ?? [phone] [place] [address]. All rights reserved. This information is not [...] the chance of preventing its spread. ?? 5051-3685 [facility], [address] [place] [address], [place] [address]. All rights reserved. This information is not [...] Take 1 tablet by 90 tablet 3 0512/201507/26/2016 azide mouth daily (PRINZIDE,ZESTORETIC) 10-12.5 MG per tabletIndications: Essential hypertension VITAMIN D, Take by mouth as 0 10/19/19 21 CHOLECALCIFEROL, PO needed documented as of this encounter H&P Notes Reyna Helm MD, MD - 11/05/2015 10:57 AM CDT Pre-Endoscopy History [...] 3 resected ??? Colonoscopy 11/05/2015 Dr. Helm [facility] ??? Hysterectomy, jarad has ovaries Relevant Family [...] Value Ref Test Analysis Performed At [facility] gist Range Method Time Signature Copath Report Patient Name: ROBBIE HARRY MR#: [id number] Specimen #: [id number] Collected: 11/05/2015 Received: 11/05/2015 Reported: 11/06/2015 15:20 [...] of adenoma or malignancy. CPT Codes: A: 37524-MO6 B: 31083-LB9 TESTING LAB LOCATION: [facility] [address] [place], [place] ??[address] COLLECTION SITE: Client: [facility] Location: RHENDO (R) Specimen (Source) Anatomical Collection Method Collection Time Re ceived Time Location / / Volume Laterality Polyp LARGE INTESTINE 11/05/2015 11:10 (morphologic PART / Unknown AM CDT abnormality) Polyp SIGMOID COLON PART 11/05/2015 11:16 (morphologic / Unknown AM CDT abnormality) Reyna Helm MD [facility] Performing Organization Address City/State/ZIP Code Phon e Number COPATH COLONOSCOPY (11/05/2015 10:01 AM CDT) [facility] Method Time Signature COLONOSCOPY [facility] RAD IOLOGY RESULTS Patient Name: Robbie Harry ?Procedure Date: 10:01 AM ? Accou nt Number: [id number] Date of : 1960 ?Admit Type: Out [...] and ?oxygen saturations were monitored continuously. The [id number] was introduced through the anus and ?advanced [...] Note Initiated On: 11/05/2015 10:01 AM MRN: ?[id number] Procedure Date: ? 11/05/2015 10:01:32 AM Scope [...] Diagnoses Not on filedocumented in this encounter Active and Recently Administered Medications Times are shown in CDT. PRN Medication Order 11/03/2015 11/04/2015 11/05/2015 FentaNYL Citrate (PF) (SUBLIMAZE) injection (CANCELED) 1057 (Given - Provider: Roxanne Frankel RN - Comment: vorb) PRN, Starting 11/05/15 at 1057, Intra-procedure midazolam (VERSED) injection (CANCELED) 1057 (Given - Provider: Roxanne Frankel RN - Comment: vorb)1105 (Given - Provider: Roxanne Frankel RN - Comment: vorb) PRN, Starting 11/05/15 at 1057, Intra-procedure sodium chloride (PF) 0.9% PF flush 3 mL (CANCELED) 1057 (Given - Provider: Roxanne Frankel, RN)1105 (Given - Provider: Roxanne Frankel, RN) 3 mL, Intravenous, EVERY 1 HOUR PRN, harlan e flush, post meds or blood draw, Starting 11/05/15 at 0956, for peripheral IV flush post IV meds, Pre-procedure documented in this encounter Additional Health Concerns Assessment Noted Time PHQ-9 Depression Total Score: 4 09/04/2015 7:14 AM CDT documented as of this encounter Care Teams Director It Project Relationship Specialty Start Date End Date Francia Nair MD PCP - General Internal Medicine 01/28/[address] [place] [address] [phone] Francia Nair MD PCP - Assigned PCP 01/07/13 06/29/[address] [place] [address] [phone] Francia Nair MD Assigned PCP 01/07/[address] [place] [address] [phone] documented as of this encounter
--- OUTSIDE RECORDS SUMMARY | 2022-01-30 11:38 | XMS_ITS | Encounter Summary ---
:1960 Author Organization [facility] Address [address] [place] [address] Care Team Providers Name Role Phone Ita Nair MD Primary Care Provider Ita Nair MD Unavailable Ita Nair MD Unavailable Reason for Referral Diagnostic Procedure Outpatient - Closed Specialty Diagnoses / Procedures Referred By Contact Refer red To Contact Diagnoses Screen for colon cancer Ita Nair MD [facility] [address] [place] [address] [address] [place] [address] Phone: Fax: Referral ID Status Reason Start Date Expiration Date Visits Requ ested Visits Authorized [id number] Closed 09/03/2015 09/02/2016 1 1 Reason for Visit Reason Comments Derm Problem Rt armpit. Pea size. x's 2+y rs. Merna to be increasing in size Back Pain Below bra strap area. Mostly Lt side muscles Encounter Details Date Type Department Care Team Description 09/03/2015 Office Visit [facility] Ita Nair MD ADD (attention deficit disorder) (Primar y Dx); Clinic [place] [address] Essential hypertension; [address] Major depressive disorder, recurrent epi sode, moderate (H); [place], [place] Controlled substance agreeme nt signed; [place] [address] Screen for colon cancer; [id number] Encounter for screening mammogram for br east cancer [phone] Social History Tobacco Use Types Packs/Day Years Used Date Current Every Day Smoker Smokeless Tobacco: Never Used Tobacco Cessation: Ready to Quit: No; Co unseling Given: No Comments: 3/4 PPD Alcohol Use Standard Drinks/Week [...] How often do you attend hoahaoism or yazidi Never 08/12/2021 services? Do you [...] Sign Reading Time Taken Comments Blood Pressure 122/78 09/03/2015 9:26 AM CDT Pulse 97 09/03/2015 9:26 AM CDT Temperature 36.8 ??C (98.3 ??F) 09/03/2015 9:26 AM CDT Respiratory Rate - - Oxygen Saturation 96% 09/03/2015 9:26 AM CDT Inhaled Oxygen Concentration - - Weight 88.5 kg (195 lb 1.6 oz) 09/03/2015 9:26 AM CDT Height - - Body Mass Index 32.47 08/07/2014 5:12 PM CDT documented in this encounter Patient Instructions Patient InstructionsIta Nair MD - 09/03/2015 9:52 AM CDT Images from the original note were not included. Low Back Pain Exercise Standing hamstring stretch: Put the heel of one leg on a stool about 15 inches high. Keep your leg straight. Lean forward, bending at the hips until you feel a mild stretch in the back of your thigh. Make sure you do not roll your shoulders or bend at the waist when doing this. You want to stretch your leg, not your lower back. Hold the stretch for 15 to 30 seconds. Repeat with each leg 3 times. Cat and camel: Get down on your hands and knees. Let your stomach sag, allowing your back to curve downward. Hold this position for 5 seconds. Then arch your back and hold for 5 seconds. Do 3 sets of 10. Quadruped arm and leg raise: Get down on your hands and knees. Pull in your belly button and tightenyour abdominal muscles to stiffen your spine. While keeping your abdominals tight, raise one arm andthe opposite leg away from you. Hold this position for 5 seconds. Lower your arm and leg slowly and change sides. Do this 10 times on each side. Pelvic tilt: Lie on your back with your knees bent and your feet flat on the floor. Tighten your abdominal muscles and push your lower back into the floor. Hold this position for 5 seconds, then relax.Do 3 sets of 10. Partial curl: Lie on your back with your knees bent and your feet flat on the floor. Tighten your stomach muscles. Tuck your chin to your chest. With your hands stretched out in front of you, curl yourupper body forward until your shoulders clear the floor. Hold this position for 3 seconds. Don't hold your breath. It helps to breathe out as you lift your shoulders up. Relax back to the floor. [id number] times. Build to 3 sets of 10. To challenge yourself, clasp your hands behind your head and keep your elbows out to the side. Gluteal stretch: Lie on your back with both knees bent. Rest the ankle of one leg over the knee of your other leg. Grasp the thigh of the bottom leg and pull toward your chest. You will feel a stretch along the buttocks and possibly along the outside of your hip. Hold the stretch for 15 to 30 seconds.Repeat 3 times with each leg. Extension exercise: 0. Lie face down on the floor for 5 minutes. If this hurts too much, lie face down with a pillow under your stomach. This should relieve your leg or back pain. When you can lie on your stomach for 5 minutes without a pillow, you can continue with Part B of this exercise. 0. After lying on your stomach for 5 minutes, prop yourself up on your elbows for another 5 minutes.If you can do this without having more leg or buttock pain, you can start doing part C of this exercise. 0. Lie on your stomach with your hands under your shoulders. Then press down on your hands and extend your elbows while keeping your hips flat on the floor. Hold for 1 second and lower yourself to the floor. Do 3 to 5 sets of 10 repetitions. Rest for 1 minute between sets. You should have no pain in your legs when you do this, but it is normal to feel some pain in your lower back. Do this exercise several times a day. Side plank: Lie on your side with your legs, hips, and shoulders in a straight line. Prop yourself up onto your forearm so your elbow is directly under your shoulder. Lift your hips off the floor and balance on your forearm and the outside of your foot. Try to hold this position for 15 seconds, then slowly lower your hip to the ground. Switch sides and repeat. Work up to holding for 1 minute or longer. This exercise can be made easier by starting with your knees and hips flexed toward your chest. Published by [employer]. This content is reviewed periodically and is subject to change as new health information becomes available. The information is intended to inform and educate and is not a replacement for medical evaluation, advice, diagnosis or treatment by a healthcare professional. Written by Shawanda Diaz, MS, PT, and Ericka Recinos PT, [facility], [facility], for [facility] ? 2009 [facility] and/or its affiliates. All Rights Reserved. documented in this encounter Progress Notes Ita Nair MD - 09/03/2015 9:28 AM CDT SUBJECTIVE: Robbie Miller is a 55 year old female who presents to clinic today for the following health issues: 1. ADD follow up: she does not think her symptoms are improved on this dose of concerta. She thinks she may have been better with the Adderall. She is worried she may have side effects from higher doses 2. HTN: not checking 3. Back pain: lower thoracic spine, daily, radiates laterally on left. It is aching. If she bends back it is sharp pain. It is constant. She has not taken anything for it, has not used ice or heat. Duration a month. 4. Small nodule right axilla. This has been present for month, may be a little bigger. She used to drain some matter from it. 5. Depression well controlled. Tolerating medication well. Patient Active Problem List Diagnosis ??? Tobacco use disorder ??? Essential hypertension ??? Obesity ??? ADD (attention deficit disorder) ??? CARDIOVASCULAR SCREENING; LDL GOAL LESS THAN 160 ??? Major depression, recurrent (HCC) Current Outpatient Prescriptions Medication Sig Dispense Refill ??? lisinopril-hydrochlorothiazide (PRINZIDE,ZESTORETIC) 10-12.5 MG per tablet Take 1 tablet by mouth daily 30 tablet 0 ??? escitalopram (LEXAPRO) 20 MG tablet Take 1 tablet (20 mg) by mouth daily 90 tablet 0 ??? methylphenidate ER (BRAND OR BX/ZC/AUTHORIZED GENERIC) 54 MG CR tablet Take 1 tablet (54 mg) by mouth every morning 30 tablet 0 ROS: No fever, chills, chest pains, palpitations, dyspnea on exertion, PND, orthopnea, headache, syncope,no significant edema, noabdominal concerns. OBJECTIVE: BP 122/78 mmHg Pulse 97 Temp(Src) 98.3 ??F (36.8 ??C) (Oral) Wt 195 lb 1.6 oz (88.497 kg) SpO2 96% Body mass index is 32.47 kg/(m^2). Not examined. ADD assessment: 07/31 soria part A PHQ-9 SCORE 08/07/2014 09/03/2015 09/03/2015 Total Score 6 - - Total Score - 4 4 ASSESSMENT/PLAN: 1. ADD (attention deficit disorder) Symptoms are not controlled with current medication, change back to Adderall but increase dose to 60mg. If not helping, refer to psych - amphetamine-dextroamphetamine (ADDERALL XR) 30 MG per capsule; 2 po daily Dispense: 60 capsule; Refill: 0 2. Essential hypertension Well controlled, check microalbumin - lisinopril-hydrochlorothiazide (PRINZIDE,ZESTORETIC) 10-12.5 MG per tablet; Take 1 tablet by mouthdaily Dispense: 90 tablet; Refill: 3 - Microalbumin quantitative random urine 3. Major depressive disorder, recurrent episode, moderate (HCC) Doing well, continue med - escitalopram (LEXAPRO) 20 MG tablet; Take 1 tablet (20 mg) by mouth daily Dispense: 90 tablet; Refill: 3 Ita Nair MD [facility] 30 minutes spent with the patient, >50% of time spent counseling about ADD goals, treatments. documented in this encounter Nursing Notes Sherita Decker MA - 09/03/2015 9:28 AM CDT Chief Complaint Patient presents with ??? Derm Problem Rt armpit. Pea size. x's 2+yrs. Merna to be increasing in size ??? Back Pain Below bra strap area. Mostly Lt side muscles Initial BP 122/78 mmHg Pulse 97 Temp(Src) 98.3 ??F (36.8 ??C) (Oral) Wt 195 lb 1.6 oz (88.497 kg) SpO2 96% Estimated body mass index is 32.47 kg/(m^2) as calculated from the following: Height as of 15: 5' 5 (1.651 m). Weight as of this encounter: 195 lb 1.6 oz (88.497 kg). BP completed using cuff size: X-large Sherita Decker MA documented in this encounter Miscellaneous Notes Addendum Note - Ita Nair MD - 09/03/2015 12:29 PM CDT Addended by: ITA NAIR on: 09/03/2015 12:29 PM Modules accepted: Orders documented in this encounter Plan of Treatment Scheduled Referrals Name Type Priority Associated Diagnoses Order S chedule GASTROENTEROLOGY ADULT Referral Routine Screen for colon O rdered: 09/03/2015 REFERRAL +/- PROCEDURE cancer documented as of this encounter Procedures Procedure Name Priority Date/Time Associated Diagnosis Comme nts ALBUMIN RANDOM URINE Routine 09/03/2015 11:28 Essential Res ults for this QUANTITATIVE AM CDT hypertension procedure are i n the results section. documented in this encounter Results Microalbumin quantitative random urine (09/03/2015 11:28 AM CDT) P athologist Signature Creatinine 131 mg/dL [place] Urine [facility] Albumin Urine 9 mg/L [place] mg/L [facility] Albumin Urine 6.53 0 - 25 [place] mg/g Cr mg/g Cr [facility] Specimen Anatomical Collection Method Collection Time Receive d Time (Source) Location / / Volume Laterality Urine specimen 09/03/2015 11:28 6 (specimen) AM CDT 11:33 AM CDT Ita Nair MD LAB - URINE ORDERABLES Performing Organization Address City/State/ZIP Code Phon e Number M [facility] [address] [address] [phone] [facility] [address] [address], [facility] [phone] documented in this encounter Visit Diagnoses Diagnosis ADD (attention deficit disorder) - Prima ry Attention deficit disorder without menti on of hyperactivity Essential hypertension Unspecified essential hypertension Major depressive disorder, recurrent epi sode, moderate (H) Major depressive disorder, recurrent epi sode, moderate Controlled substance agreement signed Encounter for long-term (current) use of other medications Screen for colon cancer Special screening for malignant neoplasm s, colon Encounter for screening mammogram for br east cancer documented in this encounter Additional Health Concerns Assessment Noted Time PHQ-9 Depression Total Score: 4 09/04/2015 7:14 AM CDT documented as of this encounter Care Teams Claims Representative Relationship Specialty Start Date End Date Ita Nair MD PCP - General Internal Medicine 01/28/13 [address] [place] [address] Ita Nair MD PCP - Assigned PCP 01/07/13 06/29/18 [address] [place] [address] Ita Nair MD Assigned PCP 01/07/13 [address] [place] [address] documented as of this encounter
--- OUTSIDE RECORDS SUMMARY | 2022-01-30 11:38 | XMS_ITS | Encounter Summary ---
:1960 Author Organization [facility] Address [address] [place] [address] Care Team Providers Name Role Phone Francia Nair MD Primary Care Provider Francia Nair MD Unavailable Francia Nair MD Unavailable Reason for Visit Reason Onset Date Comments Refill Request 09/24/2016 Prozac-to [facility] and Add erall-TO [facility] Encounter Details Date Type Department Care Team Description 09/24/2016 Refill [facility] Francia Nair MD Refill Request Clinic [place] [address] (Prozac-to [place] and [address] [place] [address] Adderall-TO [place]) [place] [address] [place], [place] [phone] (Wo rk) [address] [phone] Social History Tobacco Use Types Packs/Day Years [...] 08/12/2021 relatives? How often do you attend anglican or bahai Never 08/12/2021 services? Do you belong to any clubs or organizations such as Yes 08/12/2021 anglican groups, unions, fraternal or athletic groups, [...] Telephone Encounter - Breanne Chirinos CMA - 09/25/2016 9:16 AM CDT Rx brought down to pharmacy- pt advised to call pharmacy to make sure it has been process and ready for peanut picker before coming in. Telephone Encounter - Francia Nair MD - 09/25/2016 7:33 AM CDT Done Telephone Encounter - Drea Peter RN - 09/24/2016 4:27 PM CDT Pt calls asking for refills of Prozac and Adderall. She states she takes Prozac 40 mg now, but would like 20 mg capsules faxed in because sometimes takes BID. Prescription approved per [facility] Refill Protocol. She is out today. Also needs Adderall Rx taken to Pharmacy. [facility]. CSA signed. Last Written Prescription Date: 07/17/16 Last Fill Quantity: 60, # refills: 0 Last Office Visit with [facility], P or [employer] prescribing provider: 07/25/16 Future Office visit: Routing refill request to provider for review/approval because: Drug not on the [facility], P or [employer] refill protocol or controlled substance documented in this encounter Plan of Treatment Not on filedocumented as of this encounter Visit Diagnoses Diagnosis Major depression, recurrent (H) - Primar y Major depressive disorder, recurrent epi sode, unspecified ADD (attention deficit disorder) Attention deficit disorder without menti on of hyperactivity documented in this encounter Additional Health Concerns Assessment Noted Time PHQ-9 Depression Total Score: 11 07/26/2016 7:12 AM CD T documented as of this encounter Care Teams Local Coordinator Relationship Specialty Start Date End Date rFancia Nair MD PCP - General Internal Medicine 01/28/13 [address] [place] [phone] Francia Nair MD PCP - Assigned PCP 01/07/13 06/29/18 [address] [place] [address] [phone] Francia Nair MD Assigned PCP 01/07/13 [address] [place] [address] [phone] documented as of this encounter
--- OUTSIDE RECORDS SUMMARY | 2022-01-30 11:38 | XMS_ITS | Encounter Summary ---
:1960 Author Organization [facility] Address [address] [place] [address] Care Team Providers Name Role Phone Francia Nair MD Primary Care Provider Francia Nair MD Unavailable Francia Nair MD Unavailable Reason for Visit Reason Comments Medication Refill Lisinopril-HCTZ Encounter Details Date Type Department Care Team Description 08/26/2017 Refill [facility] Francia Nair MD Medication Refill Clinic [place] [address] (Lisinopril-HCTZ) [address] [address] [place] [address] [place], [place] [phone] (Wo rk) [address] [phone] Social History Tobacco Use Types Packs/Day Years [...] How often do you attend samaritan or worship Never 08/12/2021 services? Do you [...] Notes Telephone Encounter - Juhi Alcala - 08/26/2017 1:49 PM CDT Requested Prescriptions Pending Prescriptions Disp Refills ??? lisinopril-hydrochlorothiazide (PRINZIDE/ZESTORETIC) 10-12.5 MG per tablet [Pharmacy Med Name: LISINOPRIL-HCTZ 10/12.5MG TABLETS] 90 tablet 0 Sig: TAKE 1 TABLET BY MOUTH EVERY DAY Diuretics (Including Combos) Protocol Failed 08/26/2017 3:18 AM Failed - Blood pressure under 140/90 in past 12 months BP Readings from Last 3 Encounters: 07/25/16 126/84 11/05/15 111/73 09/03/15 122/78 Failed - Recent (12 mo) or future (30 days) visit within the authorizing provider's specialty Patient had office visit in the last 12 months or has a visit in the next 30 days with authorizing provider or within the authorizing provider's specialty. See Patient Info tab in inbasket, or Choose Columns in Meds & Orders section of the refill encounter. Last OV: 07/25/16 Failed - Normal serum creatinine on file in past 12 months Recent Labs Lab Test 08/04/16 0831 CR 0.65 Failed - Normal serum potassium on file in past 12 months Recent Labs Lab Test 08/04/16 0831 POTASSIUM 3.7 Failed - Normal serum sodium on file in past 12 months Recent Labs Lab Test 08/04/16 0831 NA 142 Passed - Patient is age 18 or older Passed - No active pregancy on record Passed - No positive test in past 12 months Medication is being filled for 1 time refill only due to: due for appt and labs Mailed letter. documented in this encounter Plan of Treatment Not on filedocumented as of this encounter Visit Diagnoses Diagnosis Essential hypertension Unspecified essential hypertension documented in this encounter Additional Health Concerns Assessment Noted Time PHQ-9 Depression Total Score: 11 07/26/2016 7:12 AM CD T documented as of this encounter Care Teams Locomotive Firer/Fireman Relationship Specialty Start Date End Date Francia Nair MD PCP - General Internal Medicine 01/28/13 [address] [place] [address] Francia Nair MD PCP - Assigned PCP 01/07/13 06/29/18 [address] [place] [address] Francia Nair MD Assigned PCP 01/07/13 [address] [place] [address] [phone] documented as of this encounter
--- OUTSIDE RECORDS SUMMARY | 2022-01-30 11:38 | XMS_ITS | Encounter Summary ---
:1960 Author Organization [facility] Address [address] [place] [address] Care Team Providers Name Role Phone Francia Nair MD Primary Care Provider Francia Nair MD Unavailable Francia Nair MD Unavailable Julieth Montes OD Unavailable [phone] Ip, Alber Vuong MD Unavailable Reason for Visit Reason Onset Date Comments Outreach 05/21/2017 PHS ATT 1 Encounter Details Date Type Department Care Team Description 05/21/2017 Telephone [facility] Francia Nair MD Outreach (PHS ATT 1) [facility] [address] [place] [address] [place], [place] [phone] (Wo rk) [phone] [phone] Social History Tobacco Use Types Packs/Day Years [...] 08/12/2021 relatives? How often do you attend spiritism or orthodox Never 08/12/2021 services? Do you belong to any clubs or organizations such as Yes 08/12/2021 spiritism groups, unions, fraternal or athletic groups, or [...] this encounter Miscellaneous Notes Telephone Encounter - Cortney Collier - 05/21/2017 1:52 PM CST 05/21/2017 Call Regarding Preventive Health Screening Mammogram Attempt 1 Message on voicemail Comments: Outreach Religious Studies Professor AT [employer] PROGRAM SPECIALIST documented in this encounter Plan of Treatment Not on filedocumented as of this encounter Visit Diagnoses Not on filedocumented in this encounter Additional Health Concerns Assessment Noted Time PHQ-9 Depression Total Score: 11 07/26/2016 7:12 AM CD T documented as of this encounter Care Teams Celebrity Manager Relationship Specialty Start Date End Date Francia Nair MD PCP - General Internal Medicine 01/28/[address] [place] [address] [phone] Francia Nair MD PCP - Assigned PCP 01/07/13 06/29/[address] [place] [address] [phone] Francia Nair MD Assigned PCP 01/07/[address] 200 [place] [address] Julieth Montes Assigned Surgical 03/17/21 LEANA Felton Provider [id number] [facility] WERNER AVERY [phone] Alber Mendez MD Assigned Heart and 08/11/21 [address] Vascular Provider WERNER BERNARD [id number] documented as of this encounter
--- OUTSIDE RECORDS SUMMARY | 2022-01-30 11:38 | XMS_ITS | Encounter Summary ---
:1960 Author Organization [facility] Address [address] [place] [address] Care Team Providers Name Role Phone Francia Nair MD Primary Care Provider Francia Nair MD Unavailable Francia Nair MD Unavailable Reason for Visit Reason Onset Date Comments Panel Management 12/16/2016 Mammogram Encounter Details Date Type Department Care Team Description 12/16/2016 Telephone [facility] Francia Nair MD Panel Management [facility] [place] [address] (Mammogram) [address] [place] [address] [place], [place] [phone] (Wo rk) [phone] Social History Tobacco Use Types Packs/Day Years [...] 08/12/2021 relatives? How often do you attend pentecostalism or judaism Never 08/12/2021 services? Do you belong to any clubs or organizations such as Yes 08/12/2021 pentecostalism groups, unions, fraternal or athletic groups, or [...] Telephone Encounter - Cherelle Espinoza LPN - 01/05/2017 3:11 PM CDT Message left on machine (see Consent to Communicate). Also, due for PHQ9. Telephone Encounter - Breanne Chirinos CMA - 12/16/2016 2:57 PM CDT Panel Management Review Patient has the following on her problem list: Depression / Dysthymia review PHQ-9 SCORE 09/03/2015 09/03/2015 07/25/2016 Total Score - - - Total Score 4 4 11 Patient is due for: None Composite cancer screening Chart review shows that this patient is due/due soon for the following Mammogram Summary: Patient is due/failing the following: MAMMOGRAM Action needed: Patient needs referral/order: Mammogram Type of outreach: Phone, left message for patient to call back. Questions for provider review: None Jossiesee Breanne Chirinos CMA Chart routed to Care Team . documented in this encounter Plan of Treatment Not on filedocumented as of this encounter Visit Diagnoses Not on filedocumented in this encounter Additional Health Concerns Assessment Noted Time PHQ-9 Depression Total Score: 11 07/26/2016 7:12 AM CD T documented as of this encounter Care Teams Registered Nurse First Assistant Relationship Specialty Start Date End Date Francia Nair MD PCP - General Internal Medicine 01/28/13 [address] [place] [address] Francia Nair MD PCP - Assigned PCP 01/07/13 06/29/18 [address] [place] [address] Francia Nair MD Assigned PCP 01/07/13 [address] [facility] 200 [place] [address] documented as of this encounter
--- OUTSIDE RECORDS SUMMARY | 2022-01-30 11:38 | XMS_ITS | Encounter Summary ---
:1960 Author Organization [facility] Address [address] [place] [address] Care Team Providers Name Role Phone Francia Nair MD Primary Care Provider Francia Nair MD Unavailable Francia Nair MD Unavailable Reason for Visit Reason Comments Patient Request refill for Adderoll Encounter Details Date Type Department Care Team Description 07/16/2016 Refill [facility] Francia Nair MD Patient Request (refill Clinic [place] [address] [facility] for Adderoll) [address] [place] [address] [place], [place] [phone] (Wo rk) [phone] [phone] Social History Tobacco Use Types Packs/Day Years [...] How often do you attend confucianism or episcopalian Never 08/12/2021 services? Do you belong to [...] this encounter Miscellaneous Notes Telephone Encounter - Joselin Raines - 07/17/2016 2:32 PM CDT Brought down to pharmacy. Pt called. Joselin Raines MA Telephone Encounter - Francia Nair MD - 07/17/2016 11:38 AM CDT Done. Telephone Encounter - Sussy Finley RN - 07/16/2016 4:41 PM CDT Adderall Last Written Prescription Date: 05-22-16 Last Fill Quantity: 60, # refills: 0 Last Office Visit with [facility] prescribing provider: 09-03-15 Future Office visit: Next 5 appointments (look out 90 days) Jul 25, 2016 2:00 PM CDT SHORT with Francia Nair MD [facility] [address] [facility] [phone] Routing refill request to provider for review/approval because: Drug not on the [facility] or [facility] refill protocol or controlled substance Signed CSA form in chart. Please hand carry rx to [facility]. Please advise, thanks. Telephone Encounter - Francia Joseph - 07/16/2016 3:53 PM CDT (Reason for Call: Medication or medication refill: Adderoll Do you use a [facility]? Name of the pharmacy and phone number for the current request: [facility] [address] [facility] [address] [place] - [phone] Name of the medication requested: Adderoll Other request: no Can we leave a detailed message on this number? YES Phone number patient can be reached at: Home number on file [phone] (home)cell Best Time:any Call taken on 07/16/2016 at 3:53 PM by Francia Joseph documented in this encounter Plan of Treatment Not on filedocumented as of this encounter Visit Diagnoses Diagnosis ADD (attention deficit disorder) Attention deficit disorder without menti on of hyperactivity documented in this encounter Additional Health Concerns Assessment Noted Time PHQ-9 Depression Total Score: 4 09/04/2015 7:14 AM CDT documented as of this encounter Care Teams Saddle Stitching Machine Operator Relationship Specialty Start Date End Date Francia Nair MD PCP - General Internal Medicine 01/28/13 [address] [place] [phone] Francia Nair MD PCP - Assigned PCP 01/07/13 06/29/18 [address] [place] [address] [phone] Francia Nair MD Assigned PCP 01/07/13 [address] [place] [address] documented as of this encounter
--- OUTSIDE RECORDS SUMMARY | 2022-01-30 11:38 | XMS_ITS | Encounter Summary ---
:1960 Author Organization [facility] Address [address] [place] [address] Care Team Providers Name Role Phone Francia Nair MD Primary Care Provider Francia Nair MD Unavailable Francia Nair MD Unavailable Reason for Visit Reason Onset Date Comments Patient Request 12/11/2015 Adderall Encounter Details Date Type Department Care Team Description 12/11/2015 Telephone [facility] Francia Nair MD Patient Request Clinic [place] [address] (Adderall ) [address] [place] [address] [place], [place] [phone] (Wo rk) [phone] [phone] Social History Tobacco Use Types Packs/Day Years [...] How often do you attend mu-ism or restorationist Never 08/12/2021 services? Do you [...] Notes Telephone Encounter - Adrienne Ortiz - 12/13/2015 10:30 AM CDT RX taken to pharmacy. Telephone Encounter - Drea Peter RN - 12/12/2015 10:24 AM CDT Not signed yet. On Dr Nair's desk. Telephone Encounter - Francia Nair MD - 12/11/2015 5:06 PM CDT done Telephone Encounter - Drea Peter RN - 12/11/2015 4:31 PM CDT Adderall CSA signed. Take Rx to pharmacy. Last Written Prescription Date: 10/12/15 Last Fill Quantity: 60, # refills: 0 Last Office Visit with [facility] Health prescribing provider: 09/03/15 Future Office visit: Routing refill request to provider for review/approval because: Drug not on the [facility] or [facility] refill protocol or controlled substance Telephone Encounter - Marissa Quintana - 12/11/2015 3:25 PM CDT Reason for Call: Medication or medication refill: Do you use a [facility]? Name of the pharmacy and phone number for the current request: [facility] [address] - [phone] Name of the medication requested:(ADDERALL XR) 30 MG per capsule Other request: none Can we leave a detailed message on this number? YES Phone number patient can be reached at: Cell number on file: Telephone Information: Best Time: anytime Call taken on 12/11/2015 at 3:26 PM by Marissa Quintana documented in this encounter Plan of Treatment Not on filedocumented as of this encounter Visit Diagnoses Diagnosis ADD (attention deficit disorder) - Prima ry Attention deficit disorder without menti on of hyperactivity documented in this encounter Additional Health Concerns Assessment Noted Time PHQ-9 Depression Total Score: 4 09/04/2015 7:14 AM CDT documented as of this encounter Care Teams Cyanide Case Hardener Relationship Specialty Start Date End Date Francia Nair MD PCP - General Internal Medicine 01/28/13 [address] [place] [address] [phone] Francia Nair MD PCP - Assigned PCP 01/07/13 06/29/18 [address] [place] [address] [phone] Francia Nair MD Assigned PCP 01/07/13 [address] [place] [address] [phone] documented as of this encounter
--- OUTSIDE RECORDS SUMMARY | 2022-01-30 11:38 | XMS_ITS | Encounter Summary ---
:1960 Author Organization [facility] Address [address] [place] [address] Care Team Providers Name Role Phone Francia Nair MD Primary Care Provider Francia Nair MD Unavailable Francia Nair MD Unavailable Reason for Visit Reason Onset Date Comments Refill Request 11/06/2016 Adderall Encounter Details Date Type Department Care Team Description 11/06/2016 Refill [facility] Francia Nair MD Refill Request Clinic [place] [address] (Adderall ) [address] [place] [address] [place], [place] [phone] (Wo rk) [phone] Social History Tobacco Use Types Packs/Day Years [...] How often do you attend buddhist or alevism Never 08/12/2021 services? Do you [...] Telephone Encounter - Breanne Chirinos CMA - 11/06/2016 1:37 PM CDT rx brought down to [facility]- left message for pt to return call. No consent to leave detail message. Telephone Encounter - Francia Nair MD - 11/06/2016 1:01 PM CDT One. Telephone Encounter - Drea Peter RN - 11/06/2016 11:04 AM CDT Adderall CSA signed. Last Written Prescription Date: 09/25/16 Last Fill Quantity: 60, # refills: 0 Last Office Visit with [facility] prescribing provider: 07/25/16 Future Office visit: Routing refill request to provider for review/approval because: Drug not on the [facility] or [facility] refill protocol or controlled substance documented in this encounter Plan of Treatment Not on filedocumented as of this encounter Visit Diagnoses Diagnosis Attention deficit disorder, unspecified hyperactivity presence - Primary documented in this encounter Additional Health Concerns Assessment Noted Time PHQ-9 Depression Total Score: 11 07/26/2016 7:12 AM CD T documented as of this encounter Care Teams Ice Cream Van Vendor Relationship Specialty Start Date End Date Francia Nair MD PCP - General Internal Medicine 01/28/13 [address] [place] [address] Francia Nair MD PCP - Assigned PCP 01/07/13 06/29/[address] [place] [address] Francia Nair MD Assigned PCP 01/07/13 [address] [place] [address] documented as of this encounter
--- OUTSIDE RECORDS SUMMARY | 2022-01-30 11:38 | XMS_ITS | Encounter Summary ---
:1960 Author Organization [facility] Address [address] [place] [address] Care Team Providers Name Role Phone Francia Nair MD Primary Care Provider Francia Nair MD Unavailable Francia Nair MD Unavailable Reason for Visit Reason Onset Date Comments Patient Request 04/07/2016 Med Refill Encounter Details Date Type Department Care Team Description 04/07/2016 Telephone [facility] Francia Nair MD Patient Request ([facility] [address] Refill) [address] [place] [address] [place], [place] [phone] (Wo rk) [phone] Social History Tobacco Use Types Packs/Day Years [...] 08/12/2021 relatives? How often do you attend hinduism or jew Never 08/12/2021 services? Do you belong to any clubs or organizations such as Yes 08/12/2021 hinduism groups, unions, fraternal or athletic groups, [...] Notes Telephone Encounter - Adrienne Ortiz - 04/08/2016 9:12 AM CST Left message for patient with note below and RX taken to pharmacy. RIAL MANAGER Telephone Encounter - Francia Nair MD - 04/08/2016 6:58 AM CST Done. Advise patient due for 6 month follow up. RIAL MANAGER Telephone Encounter - Gale Hammond RN - 04/07/2016 4:39 PM CST Adderall Last Written Prescription Date: 02/01/16 Last Fill Quantity: 60, # refills: 0 Last Office Visit with [facility] or [facility] prescribing provider: 09/03/15 Future Office visit: Routing refill request to provider for review/approval because: Drug not on the [facility] or [facility] refill protocol or controlled substance RIAL MANAGER Telephone Encounter - Amanda Bueno - 04/07/2016 11:51 AM CST Reason for Call: Medication or medication refill:Refil Do you use a [facility]? Name of the pharmacy and phone number for the current request: Plz walk pres to [facility] Name of the medication requested: amphetamine-dextroamphetamine (ADDERALL XR) 30 MG per capsule Other request: Has 5 pills left Can we leave a detailed message on this number? YES Phone number patient can be reached at: Cell number on file: Telephone Information: Best Time: anytime Call taken on 04/07/2016 at 11:51 AM by AMANDA BUENO RIAL MANAGER documented in this encounter Plan of Treatment Not on filedocumented as of this encounter Visit Diagnoses Diagnosis ADD (attention deficit disorder) - Prima ry Attention deficit disorder without menti on of hyperactivity documented in this encounter Additional Health Concerns Assessment Noted Time PHQ-9 Depression Total Score: 4 09/04/2015 7:14 AM CDT documented as of this encounter Care Teams Warehouse Selector Relationship Specialty Start Date End Date Francia Nair MD PCP - General Internal Medicine 01/28/13 [address] [place] [address] [phone] Francia Nair MD PCP - Assigned PCP 01/07/13 06/29/18 [address] [place] [address] [phone] Francia Nair MD Assigned PCP 01/07/13 [address] [place] [address] [phone] documented as of this encounter
--- OUTSIDE RECORDS SUMMARY | 2022-01-30 11:38 | XMS_ITS | Encounter Summary ---
:1960 Author Organization [facility] Address [address] [place] [address] Care Team Providers Name Role Phone Francia Nair MD Primary Care Provider Francia Nair MD Unavailable Francia Nair MD Unavailable Reason for Visit Reason Onset Date Comments Refill Request 08/21/2015 Lisinopril-hydrochlo rothiazide Encounter Details Date Type Department Care Team Description 08/21/2015 Refill [facility] Francia Nair MD Refill Request Clinic [place] [address] (Lisinopril-hydrochloro [address] thiazide ) [place] [address] [place], [place] [phone] (Wo rk) [phone] [phone] Social History Tobacco Use Types Packs/Day Years [...] 08/12/2021 relatives? How often do you attend alevism or sikh Never 08/12/2021 services? Do you belong to any clubs or organizations such as Yes 08/12/2021 alevism groups, unions, fraternal or athletic groups, [...] Telephone Encounter - Sussy Finley RN - 08/21/2015 9:55 AM CDT Routing refill request to provider for review/approval because: Patient needs to be seen because it has been more than 1 year since last office visit. Please advise, thanks. Telephone Encounter - Adrienne Ortiz - 08/21/2015 7:58 AM CDT Lisinopril-hydrochlorothiazide Last Written Prescription Date: 05/18/15 Last Fill Quantity: 90, # refills: 0 Last Office Visit with [facility] prescribing provider: 08/07/14 POTASSIUM Date Value Ref Range Status 02/16/2015 4.0 3.4 - 5.3 mmol/L Final CREATININE Date Value Ref Range Status 02/16/2015 0.59 0.52 - 1.04 mg/dL Final BP Readings from Last 3 Encounters: 08/07/14 128/76 12/29/13 130/78 04/04/13 110/75 documented in this encounter Plan of Treatment Not on filedocumented as of this encounter Visit Diagnoses Diagnosis Essential hypertension - Primary Unspecified essential hypertension documented in this encounter Care Teams Table Worker Packager Relationship Specialty Start Date End Date Francia Nair MD PCP - General Internal Medicine 01/28/13 [address] [place], [place] [phone] Francia Nair MD PCP - Assigned PCP 01/07/13 06/29/18 [address] [place] [address] Francia Nair MD Assigned PCP 01/07/13 [address] [facility] [address] [place], [place] [phone] documented as of this encounter
--- OUTSIDE RECORDS SUMMARY | 2022-01-30 11:38 | XMS_ITS | Encounter Summary ---
:1960 Author Organization [facility] Address [address] [place] [address] Care Team Providers Name Role Phone Francia Nair MD Primary Care Provider Francia Nair MD Unavailable Francia Nair MD Unavailable Reason for Visit Reason Onset Date Comments Patient Request 02/01/2016 refill on adderall Encounter Details Date Type Department Care Team Description 02/01/[address] [facility] Francia Nair MD Patient Request Clinic [place] [address] (refill on adderall) [address] [place] [address] [place], [place] [phone] (Wo rk) [address] [phone] Social History Tobacco Use Types Packs/Day Years [...] 08/12/2021 relatives? How often do you attend denominational or congregational Never 08/12/2021 services? Do you belong to any clubs or organizations such as Yes 08/12/2021 denominational groups, unions, fraternal or athletic groups, or [...] Notes Telephone Encounter - Adrienne Ortiz - 02/01/2016 3:00 PM CDT RX taken to pharmacy. Patient advised. Telephone Encounter - Francia Nair MD - 02/01/2016 12:11 PM CDT Done. Telephone Encounter - Sussy Finley RN - 02/01/2016 9:34 AM CDT Adderall Last Written Prescription Date: 12-11-15 Last Fill Quantity: 60, # refills: 0 Last Office Visit with [facility] or [facility] prescribing provider: 09-03-15 Future Office visit: Routing refill request to provider for review/approval because: Drug not on the [facility] or [facility] refill protocol or controlled substance Signed CSA form in chart. Req rx be hand-carried to pharm. Please advise, thanks. Telephone Encounter - Kasey Lopez - 02/01/2016 9:11 AM CDT Reason for Call: Medication or medication refill: Do you use a [facility]? Name of the pharmacy and phone number for the current request: [facility] - [phone] Name of the medication requested: adderall 30mg Other request: no Can we leave a detailed message on this number? YES Phone number patient can be reached at: Cell number on file: Telephone Information: Best Time: anytime Call taken on 02/01/2016 at 9:11 AM by Kasey Lopez documented in this encounter Plan of Treatment Not on filedocumented as of this encounter Visit Diagnoses Diagnosis ADD (attention deficit disorder) - Prima ry Attention deficit disorder without menti on of hyperactivity documented in this encounter Additional Health Concerns Assessment Noted Time PHQ-9 Depression Total Score: 4 09/04/2015 7:14 AM CDT documented as of this encounter Care Teams Process Inspector Relationship Specialty Start Date End Date Francia Nair MD PCP - General Internal Medicine 01/28/13 [address] [place] [address] [phone] Francia Nair MD PCP - Assigned PCP 01/07/13 06/29/18 [address] [place], [place] [phone] Francia Nair MD Assigned PCP 01/07/13 [address] [place] [address] [phone] documented as of this encounter
--- OUTSIDE RECORDS SUMMARY | 2022-01-30 11:38 | XMS_ITS | Encounter Summary ---
:1960 Author Organization [facility] Address [address] [place] [address] Care Team Providers Name Role Phone Francia Nair MD Primary Care Provider Francia Nair MD Unavailable Francia Nair MD Unavailable Reason for Visit Reason Onset Date Comments Refill Request 05/28/2015 Adderall Encounter Details Date Type Department Care Team Description 05/28/2015 Refill [facility] Francia Nair MD Refill Request Clinic [place] [address] (Adderall ) [address] [place] [address] [place], [place] [phone] (Wo rk) [address] [phone] Social History Tobacco Use Types Packs/Day Years [...] How often do you attend baptism or shinto Never 08/12/2021 services? Do you [...] Telephone Encounter - Catherine Mariscal MA - 05/29/2015 3:59 PM CST Adderall at the front end specialist. Lm WORKER FOREMAN Telephone Encounter - Francia Nair MD - 05/29/2015 3:48 PM CST Prescription done. WORKER FOREMAN Telephone Encounter - Sussy Finley RN - 05/29/2015 12:45 PM CST Pt calling back. Informed of PCP's message below. Is willing to try a higher dose of Methylphenidate. Please advise, thanks. WORKER FOREMAN Telephone Encounter - Drea Peter RN - 05/29/2015 10:32 AM CST Attempted to contact pt. Left message to call clinic. WORKER FOREMAN Telephone Encounter - Francia Nair MD - 05/29/2015 7:01 AM CST The problem is she was not having good control with the Adderall. We can increase the methylphenidate to 54 mg if not helping. WORKER FOREMAN Telephone Encounter - Drea Peter RN - 05/28/2015 2:46 PM CST Pt calls asking to go back to the Adderall. She states the Methylphenidate ER just isn't working well. Pended her last Adderall Rx. Adderall Last Written Prescription Date: 08/03/14 Last Fill Quantity: 60, # refills: 0 Last Office Visit with [facility] primary care provider: 08/07/14 Future Office visit: Routing refill request to provider for review/approval because: Drug not on the [facility] refill protocol or controlled substance WORKER FOREMAN documented in this encounter Plan of Treatment Not on filedocumented as of this encounter Visit Diagnoses Diagnosis ADD (attention deficit disorder) - Prima ry Attention deficit disorder without menti on of hyperactivity documented in this encounter Care Teams Rehab Office Coordinator Relationship Specialty Start Date End Date Francia Nair MD PCP - General Internal Medicine 01/28/13 [address] [place] [address] [phone] Francia Nair MD PCP - Assigned PCP 01/07/13 06/29/18 [address] [place] [address] [phone] Francia Nair MD Assigned PCP 01/07/13 [address] [place] [address] [phone] documented as of this encounter
--- OUTSIDE RECORDS SUMMARY | 2022-01-30 11:39 | XMS_ITS | Encounter Summary ---
:1960 Author Organization [facility] Address [address] [place] [address]. [place] [address] Care Team Providers Name Role Phone Francia Nair MD Primary Care Provider Francia Nair MD Unavailable Francia Nair MD Unavailable Reason for Referral [facility] - Closed Specialty Diagnoses / Procedures Referred By Contact Refer red To Contact Diagnoses Upper back pain Francia Nair MD [facility] [address] [place] [address] [facility] ADMIN OFFICE [place], [place] [phone] Phone: [phone] Referral ID Status Reason Start Date Expiration Date Visits Requ ested Visits Authorized [id number] Closed 08/07/2014 02/03/2015 1 1 Reason for Visit Reason Comments Medication Follow-up HTN, A.D.D. Encounter Details Date Type Department Care Team Description 08/07/2014 Office Visit [facility] Francia Nair MD HYPERTENSION NOS (Primary Dx); [facility] [address] (attention deficit disor cathie); [address] Major depression; [place], [place] [address] [phone] Social History Tobacco Use Types Packs/Day Years Used Date Current Every Day Smoker Smokeless Tobacco: Never Used Comments: 3/ PPD Alcohol Use Standard Drinks/Week Comments Yes [...] How often do you attend faith or mormonism Never 08/12/2021 services? Do you [...] Sign Reading Time Taken Comments Blood Pressure 128/76 08/07/2014 5:12 PM CDT Pulse 80 08/07/2014 5:12 PM CDT Temperature 37.1 ??C (98.7 ??F) 08/07/2014 5:12 PM CDT Respiratory Rate - - Oxygen Saturation 98% 08/07/2014 5:12 PM CDT Inhaled Oxygen Concentration - - Weight 84.4 kg (186 lb 1.6 oz) 08/07/2014 5:12 PM CDT Height 165.1 cm (5' 5) 08/07/2014 5:12 PM CDT Body Mass Index 30.97 08/07/2014 5:12 PM CDT documented in this encounter Patient Instructions Patient InstructionsFrancia Nair MD - 08/07/2014 5:40 PM CDT Try the concerta once a day for at least 5-7 days. If not helping at all and no side effects, increase to 2 daily. If you don't tolerate 2, we could do the 27 mg dose. The [place] diabetes website, www.diabetes.org, has good information about diet, exercise for sugars. Call [phone] to schedule mammogram. documented in this encounter Progress Notes Francia Nair MD - 08/07/2014 5:14 PM CDT SUBJECTIVE: Robbie Miller is a 54 year old female who presents to clinic today for the following health issues: Hypertension Follow-up ?? Outpatient blood pressures are not being checked. ?? Low Salt Diet: no added salt ?? Amount of exercise or physical activity: 6-7 days/week for an average of less than 15 minutes ?? Problems taking medications regularly: No ?? Medication side effects: none ?? Diet: regular (no restrictions) and low salt Other problems: 1. ADD: still noticing significant problems with focus, disorganized, hard to get tasks done. Not really any better after increasing dose last fall. 2. Major depression: doing well Current Concerns: Right upper back pain and neck, going on a long time. No radiation down arm. No weakness in arm. On computer a lot. Patient Active Problem List Diagnosis ??? TOBACCO USE DISORDER ??? HYPERTENSION NOS ??? OBESITY NOS ??? ADD (attention deficit disorder) ??? CARDIOVASCULAR SCREENING; LDL GOAL LESS THAN 160 ??? Major depression Current Outpatient Prescriptions Medication Sig Dispense Refill ??? amphetamine-dextroamphetamine (ADDERALL XR) 20 MG per capsule Take 2 capsules (40 mg) by mouth daily 60 capsule 0 ??? lisinopril-hydrochlorothiazide (PRINZIDE,ZESTORETIC) 10-12.5 MG per tablet Take 1 tablet by mouth daily 90 tablet 1 ??? escitalopram (LEXAPRO) 20 MG tablet Take 1 tablet (20 mg) by mouth daily 90 tablet 1 History Substance Use Topics ??? Smoking status: Current Every Day Smoker ??? Smokeless tobacco: Never Used Comment: 3/4 PPD ??? Alcohol Use: Yes Comment: ocassional 1-2 per year ROS: Patient denies exertional chest pain, dyspnea, palpitations, syncope, orthopnea, edema or paroxysmalnocturnal dyspnea. Objective: Patient alert in NAD BP 128/76 Pulse 80 Temp(Src) 98.7 ??F (37.1 ??C) (Oral) Ht 5' 5 (1.651 m) Wt 186 lb 1.6 oz (84.414 kg) BMI 30.97 kg/m2 SpO2 98% Last PHQ-9 score on record= PHQ-9 SCORE (FM) 08/07/2014 Total Score 6 MORENA-7 SCORE 08/10/2014 Total Score 6 Assessment: (401.9) HYPERTENSION NOS (primary encounter diagnosis) Comment: well controlled Plan: lisinopril-hydrochlorothiazide (PRINZIDE,ZESTORETIC) 10-12.5 MG per tablet (314.00) ADD (attention deficit disorder) Comment: symptoms are not really better compared to initial evaluation, try to change medication Plan: methylphenidate ER (BRAND OR BX/ZC GENERIC) 18 MG CR tablet any immigration patrol inspector Call if side effects, increase in 2 weeks if doing well (296.20) Major depression Comment: stable Plan: escitalopram (LEXAPRO) 20 MG tablet Continue med (724.5) Upper back pain Comment: refer PT Plan: [facility] PT, HAND, AND CHIROPRACTIC REFERRAL Francia Nair MD 30 minutes spent with the patient, >50% of time spent counseling about ADD medications, treatmentgoals. documented in this encounter Nursing Notes Ottoniel Ramirez - 08/07/2014 5:14 PM CDT Chief Complaint Patient presents with ??? RECHECK htn Initial BP 128/76 Pulse 80 Temp(Src) 98.7 ??F (37.1 ??C) (Oral) Ht 5' 5 (1.651 m) Wt 186 lb1.6 oz (84.414 kg) BMI 30.97 kg/m2 SpO2 98% Estimated body mass index is 30.97 kg/(m^2) as calculated from the following: Height as of this encounter: 5' 5 (1.651 m). Weight as of this encounter: 186 lb 1.6 oz (84.414 kg). BP completed using cuff size: juwan Ramirez MA documented in this encounter Plan of Treatment Scheduled Referrals Name Type Priority Associated Diagnoses Order S chedule [facility] PT, HAND, AND Referral Routine Upper back pain Ordered : 08/07/2014 CHIROPRACTIC REFERRAL documented as of this encounter Visit Diagnoses Diagnosis HYPERTENSION NOS - Primary Unspecified essential hypertension ADD (attention deficit disorder) Attention deficit disorder without menti on of hyperactivity Major depression Major depressive disorder, single episod e, unspecified Upper back pain Pain in thoracic spine documented in this encounter Care Teams Field Services Manager Relationship Specialty Start Date End Date Francia Nair MD PCP - General Internal Medicine 01/28/13 [address] [place] [address] [phone] Francia Nair MD PCP - Assigned PCP 01/07/13 06/29/18 [address] [place] [address] [phone] Francia Nair MD Assigned PCP 01/07/13 [address] [place] [address] [phone] documented as of this encounter
--- OUTSIDE RECORDS SUMMARY | 2022-01-30 11:39 | XMS_ITS | Encounter Summary ---
:1960 Author Organization [facility] Address [address] [place] [address] Care Team Providers Name Role Phone Francia Nair MD Primary Care Provider Francia Nair MD Unavailable Francia Nair MD Unavailable Reason for Visit Reason Onset Date Comments Refill Request 09/12/2013 ADDERALL XR Encounter Details Date Type Department Care Team Description 09/12/2013 Refill [facility] Francia Nair MD Refill Request Clinic [place] [address] (ADDERALL XR) [address] [place] [address] [place] [address] [place], [place] [phone] (Wo rk) [address] [phone] Social History Tobacco Use Types Packs/Day Years [...] How often do you attend bahai or jewish Never 08/12/2021 services? Do you [...] Telephone Encounter - Drea Peter RN - 09/15/2013 9:59 AM CDT Attempted to contact pt. Left message to call clinic. Telephone Encounter - Hong Barry CMA - 09/13/2013 6:02 PM CDT Rx up front also Telephone Encounter - Ailin Gifford LPN - 09/12/2013 4:20 PM CDT Left message on answering machine regarding message below from Dr Nair Telephone Encounter - Francia Nair MD - 09/12/2013 3:19 PM CDT Done; ask if she feels her symptoms are well controlled on this dose. Telephone Encounter - Kasey Montes RN - 09/12/2013 1:38 PM CDT Last refill of Adderall 08/10/13 #60 requires provider authorization. Kasey Montes RN Telephone Encounter - Adrienne Ortiz - 09/12/2013 1:09 PM CDT Refill request from Patient for: ADDERALL XR Patient states she only has 1 pill left. Please call when RX ready for patient to poultry picker at the front office spec. Last O/V: 04/04/13 Last Refill: 08/10/13 documented in this encounter Plan of Treatment Not on filedocumented as of this encounter Visit Diagnoses Diagnosis ADD (attention deficit disorder) Attention deficit disorder without menti on of hyperactivity documented in this encounter Care Teams Dog Walker Relationship Specialty Start Date End Date Francia Nair MD PCP - General Internal Medicine 01/28/13 [address] [place] [address] [phone] Francia Nair MD PCP - Assigned PCP 01/07/13 06/29/18 [address] [place] [address] [phone] Francia Nair MD Assigned PCP 01/07/13 [address] [place] [address] [phone] documented as of this encounter
--- OUTSIDE RECORDS SUMMARY | 2022-01-30 11:39 | XMS_ITS | Encounter Summary ---
:1960 Author Organization [facility] Address [address] [place] [address] Care Team Providers Name Role Phone Francia Nair MD Primary Care Provider Francia Nair MD Unavailable Francia Nair MD Unavailable Reason for Visit Reason Onset Date Comments Refill Request 01/25/2015 methylphenidate Encounter Details Date Type Department Care Team Description 01/25/2015 Refill [facility] Francia Nair MD Refill Request Clinic [place] [address] (methylphenidate ) [address] [place] [address] [place] [address] [place], [place] [phone] (Wo rk) [address] [phone] Social History Tobacco Use Types Packs/Day Years [...] How often do you attend shinto or rastafari Never 08/12/2021 services? Do you belong to [...] Notes Telephone Encounter - Adrienne Ortiz - 01/25/2015 1:53 PM CDT Left message for patient to advise RX is ready for chicken picker at the front end manager with a picture ID. Telephone Encounter - Francia Nair MD - 01/25/2015 12:58 PM CDT Done. Telephone Encounter - Drea Peter RN - 01/25/2015 8:47 AM CDT Refill request for Methylphenidate. Last Written Prescription Date: 12/26/14 Last Fill Quantity: 30, # refills: 0 Last Office Visit with [facility] primary care provider: 08/07/14 Future Office visit: Routing refill request to provider for review/approval because: Drug not on the [facility] refill protocol or controlled substance documented in this encounter Plan of Treatment Not on filedocumented as of this encounter Visit Diagnoses Diagnosis ADD (attention deficit disorder) - Prima ry Attention deficit disorder without menti on of hyperactivity documented in this encounter Care Teams Horser Up Relationship Specialty Start Date End Date Francia Nair MD PCP - General Internal Medicine 01/28/13 [address] [place] [address] Francia Nair MD PCP - Assigned PCP 01/07/13 06/29/18 [address] [place] [address] Francia Nair MD Assigned PCP 01/07/13 [address] [place] [address] documented as of this encounter
--- OUTSIDE RECORDS SUMMARY | 2022-01-30 11:39 | XMS_ITS | Encounter Summary ---
:1960 Author Organization [facility] Address [address] [place] [address] Care Team Providers Name Role Phone Francia Nair MD Primary Care Provider Francia Nair MD Unavailable Francia Nair MD Unavailable Reason for Visit Reason Onset Date Comments Refill Request 08/01/2014 adderall Encounter Details Date Type Department Care Team Description 08/01/2014 Refill [facility] Francia Nair MD Refill Request Clinic [place] [address] (adderall ) [address] [place] [address] [place] [address] [place], [place] [phone] (Wo rk) [address] [phone] Social History Tobacco Use Types Packs/Day Years [...] 08/12/2021 relatives? How often do you attend quaker or muslim Never 08/12/2021 services? Do you belong to any clubs or organizations such as Yes 08/12/2021 quaker groups, unions, fraternal or athletic groups, or [...] Notes Telephone Encounter - Adrienne Ortiz - 08/03/2014 10:29 AM CDT Spoke to patient and advised RX is ready for diamond picker at the front sight attacher in with a picture ID. Alsoschedule OV for 08/07/14. Telephone Encounter - Francia Nair MD - 08/03/2014 7:31 AM CDT She is due for follow up; every 6 months for controlled medications. Rx done. Telephone Encounter - Drea Peter RN - 08/01/2014 2:41 PM CDT Pt calls for adderall refill Last OV 12/29/13. She states she may be due for OV. Last refill on 06/27/14 for #60 Medication requires MD authorization. Please print Rx, MD signature needed. documented in this encounter Plan of Treatment Not on filedocumented as of this encounter Visit Diagnoses Diagnosis ADD (attention deficit disorder) - Prima ry Attention deficit disorder without menti on of hyperactivity documented in this encounter Care Teams Implementation Specialist Payroll Relationship Specialty Start Date End Date Francia Nair MD PCP - General Internal Medicine 01/28/13 [address] [place] [address] Francia Nair MD PCP - Assigned PCP 01/07/13 06/29/18 [address] [place] [address] Francia Nair MD Assigned PCP 01/07/13 [address] [place], [place] [phone] documented as of this encounter
--- OUTSIDE RECORDS SUMMARY | 2022-01-30 11:39 | XMS_ITS | Encounter Summary ---
:1960 Author Organization [facility] Address [address] [place] [address] Care Team Providers Name Role Phone Francia Nair MD Primary Care Provider Francia Nair MD Unavailable Francia Nair MD Unavailable Reason for Visit Reason Onset Date Comments Refill Request 12/26/2014 concerta Encounter Details Date Type Department Care Team Description 12/26/2014 Refill [facility] Francia Nair MD Refill Request Clinic [place] [address] (concerta) [address] [place] 200 [place] [address] [place], [place] [phone] (Wo rk) [address] [phone] Social History Tobacco Use Types Packs/Day Years [...] How often do you attend tenriism or scientologist Never 08/12/2021 services? Do you [...] Telephone Encounter - Catherine Mariscal MA - 12/26/2014 4:00 PM CDT Methylphenidate at the front desk attendant. LM. Telephone Encounter - Francia Nair MD - 12/26/2014 2:37 PM CDT Done. Advise she will be due for follow up next month. Telephone Encounter - Sussy Finley RN - 12/26/2014 9:21 AM CDT Pt calling for refill on: Concerta Last Written Prescription Date: 11-23-14 Last Fill Quantity: 30, # refills: 0 Last Office Visit with [facility] primary care provider: 08-07-14 Please call when rx is ready for p/u. Routing refill request to provider for review/approval because: Drug not on the [facility] refill protocol documented in this encounter Plan of Treatment Not on filedocumented as of this encounter Visit Diagnoses Diagnosis ADD (attention deficit disorder) - Prima ry Attention deficit disorder without menti on of hyperactivity documented in this encounter Care Teams Mems Process Engineer Relationship Specialty Start Date End Date Francia Nair MD PCP - General Internal Medicine 01/28/13 [address] [place] [address] Francia Nair MD PCP - Assigned PCP 01/07/13 06/29/18 [address] [place] [address] Francia Nair MD Assigned PCP 01/07/13 [address] [place], [place] [phone] documented as of this encounter
--- OUTSIDE RECORDS SUMMARY | 2022-01-30 11:39 | XMS_ITS | Encounter Summary ---
:1960 Author Organization [facility] Address [address] [place] [address] Care Team Providers Name Role Phone Francia Nair MD Primary Care Provider Francia Nair MD Unavailable Francia Nair MD Unavailable Reason for Visit Reason Onset Date Comments Refill Request 11/14/2013 Adderall Encounter Details Date Type Department Care Team Description 11/14/2013 Refill [facility] Francia Nair MD Refill Request Clinic [place] [address] (Adderall ) [address] [place] [address] [place] [address] [place], [place] [phone] (Wo rk) [address] [phone] Social History Tobacco Use Types Packs/Day Years [...] How often do you attend muslim or advent Never 08/12/2021 services? Do you [...] this encounter Miscellaneous Notes Telephone Encounter - Yanci Mcnulty - 11/15/2013 9:21 AM CDT Spoke to patient re: prescription ready at the assistant front desk manager. Hansel MACIEL Telephone Encounter - Francia Nair MD - 11/14/2013 3:45 PM CDT She is overdue for a 6 month follow up. One fill done. Telephone Encounter - Drea Peter RN - 11/14/2013 2:00 PM CDT Pt calls for refill of Adderall. Last OV 04/04/13. Last refill on 10/12/13 for #60. Medication requires MD authorization. Please print Rx, MD signature needed. documented in this encounter Plan of Treatment Not on filedocumented as of this encounter Visit Diagnoses Diagnosis ADD (attention deficit disorder) Attention deficit disorder without menti on of hyperactivity documented in this encounter Care Teams Early Childhood Worker Relationship Specialty Start Date End Date Francia Nair MD PCP - General Internal Medicine 01/28/[address] [place] [address] [phone] Francia Nair MD PCP - Assigned PCP 01/07/13 06/29/18 [address] [place] [address] [phone] Francia Nair MD Assigned PCP 01/07/13 [address] [place] [address] [phone] documented as of this encounter
--- OUTSIDE RECORDS SUMMARY | 2022-01-30 11:39 | XMS_ITS | Encounter Summary ---
:1960 Author Organization [facility] Address [address] [place] [address]. [place] [address] Care Team Providers Name Role Phone Francia Nair MD Primary Care Provider Francia Nair MD Unavailable Francia Nair MD Unavailable Julieth Montes OD Unavailable [phone] Ip, Alber Vuong MD Unavailable Reason for Visit Reason Onset Date Comments Refill Request 01/12/2014 Encounter Details Date Type Department Care Team Description 01/12/2014 MyC Refill [facility] Kin Nair MD Refill Request [place] [address] [address] [facility] [place] [address] [phone] Social History Tobacco Use Types Packs/Day Years [...] How often do you attend yarsani or yazidi Never 08/12/2021 services? Do you [...] on filedocumented in this encounter Care Teams Laboratory Geneticist Relationship Specialty Start Date End Date Francia Nair MD PCP - General Internal Medicine 01/28/[address] [place] [address] [phone] Francia Nair MD PCP - Assigned PCP 01/07/13 06/29/[address] [place] [address] [phone] Francia Nair MD Assigned PCP 01/07/[address] [place] [address] [phone] Julieth Montes Assigned Surgical 03/17/21 LEANA Felton Provider [facility] [place] [address] Alber Mendez MD Assigned Heart and 08/11/21 [address] Vascular Provider [place] [phone] documented as of this encounter
--- OUTSIDE RECORDS SUMMARY | 2022-01-30 11:39 | XMS_ITS | Encounter Summary ---
:1960 Author Organization [facility] Address [address] [place] [address] Care Team Providers Name Role Phone Francia Nair MD Primary Care Provider Francia Nair MD Unavailable Francia Nair MD Unavailable Reason for Visit Reason Onset Date Comments Refill Request 05/01/2014 adderall Encounter Details Date Type Department Care Team Description 05/01/2014 Refill [facility] Francia Nair MD Refill Request Clinic [place] [address] (adderall ) [address] [place] [address] [place] [address] [place], [place] [phone] (Wo rk) [address] [phone] Social History Tobacco Use Types Packs/Day Years [...] How often do you attend presybeterian or muslim Never 08/12/2021 services? Do you [...] this encounter Miscellaneous Notes Telephone Encounter - Holly Guadarrama - 05/01/2014 1:28 PM CST Called and informed patient prescription is ready for fern picker. Holly Guadarrama MA LLENCE SPECIALIST Telephone Encounter - Francia Nair MD - 05/01/2014 11:57 AM CST Done. LLENCE SPECIALIST Telephone Encounter - Drea Peter RN - 05/01/2014 10:27 AM CST Pt calls for refill of Adderall. Last OV 12/29/13 \ Last refill on 03/27/14 for #60 Medication requires MD authorization. Please print Rx, MD signature needed. Please call her when Rx ready. LLENCE SPECIALIST documented in this encounter Plan of Treatment Not on filedocumented as of this encounter Visit Diagnoses Diagnosis ADD (attention deficit disorder) - Prima ry Attention deficit disorder without menti on of hyperactivity documented in this encounter Care Teams Source Water Protection Specialist Relationship Specialty Start Date End Date Francia Nair MD PCP - General Internal Medicine 01/28/[address] [place] [address] [phone] Francia Nair MD PCP - Assigned PCP 01/07/13 06/29/18 [address] [place] [address] Francia Nair MD Assigned PCP 01/07/13 [address] [place] [address] [phone] documented as of this encounter
--- OUTSIDE RECORDS SUMMARY | 2022-01-30 11:39 | XMS_ITS | Encounter Summary ---
:1960 Author Organization [place] Address [address] [place] [address] Care Team Providers Name Role Phone Francia Nair MD Primary Care Provider Francia Nair MD Unavailable Francia Nair MD Unavailable Encounter Details Date Type Department Care Team Description 02/16/2015 [facility] Ess ential hypertension [facility] [address] [place] [address] Social History Tobacco Use [...] How often do you attend protestant or druze Never 08/12/2021 services? Do you [...] Associated Diagnosis Comme nts BASIC METABOLIC Routine 02/16/2015 2:41 PM Essential Result s for this PANEL CDT hypertension procedure are i n the results section. documented in this encounter Results Basic metabolic panel (02/16/2015 2:41 PM CDT) [facility] Method Time Signature Sodium 138 133 - 144 GAYS mmol/L [facility] Potassium 4.0 3.4 - 5.3 GAYS mmol/L [facility] Chloride 104 94 - 109 GAYS mmol/L [facility] Carbon Dioxide 25 20 - 32 GAYS mmol/L [facility] Anion Gap 9 3 - 14 GAYS mmol/L [facility] Glucose 84 70 - 99 GAYS mg/dL [facility] Urea Nitrogen 13 7 - 30 GAYS mg/dL [facility] Creatinine 0.59 0.52 - GAYS 1.04 CLINICS mg/dL [facility] GFR Estimate >90 >60 GAYS Non GFR Calc mL/min/1. CLINICS 7m2 [facility] G[facility] Estimate >90 >60 GAYS If Black GFR Calc mL/min/1. CLIN ICS 7m2 [facility] Calcium 9.2 8.5 - GAYS 10.1 CLINICS mg/dL [facility] Specimen Anatomical Collection Method Collection Time Receive d Time (Source) Location / / Volume Laterality Blood specimen 02/16/2015 2:41 PM 015 2:46 (specimen) CDT PM CDT Francia Nair MD LAB - BLOOD ORDERABLES Performing Organization Address City/State/ZIP Code Phon e Number [facility] [address] [place] [address] documented in this encounter Visit Diagnoses Diagnosis Essential hypertension Unspecified essential hypertension documented in this encounter Care Teams Trackmobile Operator Relationship Specialty Start Date End Date Francia Nair MD PCP - General Internal Medicine 01/28/13 [address] [place] [address] Francia Nair MD PCP - Assigned PCP 01/07/13 06/29/18 [address] [place] [address] Francia Nair MD Assigned PCP 01/07/13 [address] [place] [address] documented as of this encounter
--- OUTSIDE RECORDS SUMMARY | 2022-01-30 11:39 | XMS_ITS | Encounter Summary ---
:1960 Author Organization [place] Address [address] [place] [address] Care Team Providers Name Role Phone Francia Nair MD Primary Care Provider Francia Nair MD Unavailable Francia Nair MD Unavailable Reason for Visit Reason Onset Date Comments Refill Request 10/12/2013 ADDERALL Encounter Details Date Type Department Care Team Description 10/12/2013 Refill [facility] Francia Nair MD Refill Request Clinic [place] [address] (ADDERALL) 303 [place] [address] [place] [address] [place], [place] [phone] (Wo rk) [address] [phone] Social History Tobacco Use Types Packs/Day Years [...] How often do you attend moravian or amish Never 08/12/2021 services? Do you [...] this encounter Miscellaneous Notes Telephone Encounter - Nola Bennett - 10/13/2013 7:18 AM CDT Rx ready. Will call patient later this morning. DEBI Childers Telephone Encounter - Penny Caputo - 10/12/2013 3:14 PM CDT Patient calling to get refill. Please call her when hard copy is ready at java front end web developer. Adderall=last ordered 09/12/13. #60 with 0 refills. DARREL=04/04/13 Refill request from pharmacy. BP Readings from Last 3 Encounters: 04/04/13 110/75 01/28/13 138/89 12/28/04 110/80 Last No results found for this basename: a1c Last Creatinine Date Value Range Status 08/12/2013 0.69 0.52 - 1.04 mg/dL Final ] Last Potassium Date Value Range Status 08/12/2013 4.4 3.4 - 5.3 mmol/L Final ] Last Last PHQ-9 score on record= 2, Last LDL Cholesterol Calculated Date Value Range Status 08/12/2013 123 0 - 129 mg/dL Final LDL Cholesterol is the primary guide to therapy: LDL-cholesterol goal in high risk patients is <100 mg/dL and in very high risk patients is <70 mg/dL. ] Last ALT 43 12/15/2011 ALT 43 12/15/2011 Last Last ACT score on record= No THEODORA found with the name: HP#ACT Penny Harshal documented in this encounter Plan of Treatment Not on filedocumented as of this encounter Visit Diagnoses Diagnosis ADD (attention deficit disorder) Attention deficit disorder without menti on of hyperactivity documented in this encounter Care Teams Hide Tanner Relationship Specialty Start Date End Date Francia Nair MD PCP - General Internal Medicine 01/28/13 [address] [place] [address] [phone] Francia Nair MD PCP - Assigned PCP 01/07/13 06/29/18 [address] [place] [address] [phone] Francia Nair MD Assigned PCP 01/07/13 [address] [place] [address] [phone] documented as of this encounter
--- OUTSIDE RECORDS SUMMARY | 2022-01-30 11:39 | XMS_ITS | Encounter Summary ---
:1960 Author Organization [place] Address [address] [place] [address] Care Team Providers Name Role Phone Francia Nair MD Primary Care Provider Francia Nair MD Unavailable Francia Nair MD Unavailable Reason for Visit Reason Onset Date Comments Refill Request 05/30/2014 adderall Encounter Details Date Type Department Care Team Description 05/30/2014 Refill [facility] Francia Nair MD Refill Request Clinic [place] [address] (adderall ) [address] [place] [address] [place] [address] [place], [place] [phone] (Wo rk) [address] [phone] Social History Tobacco Use Types Packs/Day Years [...] How often do you attend adventist or denominational Never 08/12/2021 services? Do you [...] Telephone Encounter - Breanne Chirinos CMA - 05/30/2014 5:32 PM CST Rx at front tender- pt advised of message below. Her partner Estephanie Greenfield may be picking up rx tomorrow. TE SENSING ENGINEER Telephone Encounter - Francia Nair MD - 05/30/2014 5:10 PM CST Done, she will need follow up before the next set of refills. TE SENSING ENGINEER Telephone Encounter - Drea Peter RN - 05/30/2014 1:36 PM CST Pt calls for refill of Adderall. She is asking for 2 months Rxs. She will make OV for June. Last OV 12/29/13 Last refill on 05/01/13 for #60. Medication requires MD authorization. Please print Rx, MD signature needed. TE SENSING ENGINEER documented in this encounter Plan of Treatment Not on filedocumented as of this encounter Visit Diagnoses Diagnosis ADD (attention deficit disorder) - Prima ry Attention deficit disorder without menti on of hyperactivity documented in this encounter Care Teams Education General Manager Relationship Specialty Start Date End Date Francia Nair MD PCP - General Internal Medicine 01/28/13 [address] [place] [address] Francia Nair MD PCP - Assigned PCP 01/07/13 06/29/18 [address] [place] [address] Francia Nair MD Assigned PCP 01/07/13 [address] [facility] [address] [place] [address] documented as of this encounter
--- OUTSIDE RECORDS SUMMARY | 2022-01-30 11:39 | XMS_ITS | Encounter Summary ---
:1960 Author Organization [place] Address [address] [place] [address] Care Team Providers Name Role Phone Francia Nair MD Primary Care Provider Francia Nair MD Unavailable Francia Nair MD Unavailable Reason for Visit Reason Onset Date Comments Refill Request 12/19/2013 ADDERALL XR Encounter Details Date Type Department Care Team Description 12/19/[address] [facility] Francia Nair MD Refill Request Clinic [place] [address] (ADDERALL XR) [address] [place] [address] [place] [address] [place], [place] [phone] (Wo rk) [address] [phone] Social History Tobacco Use Types Packs/Day Years [...] How often do you attend mu-ism or roman catholic Never 08/12/2021 services? Do [...] Telephone Encounter - Cherelle Espinoza LPN - 12/20/2013 5:01 PM CDT Advised patient to machine operator hop picker prescription at appointment desk with picture identification. Telephone Encounter - Francia Nair MD - 12/20/2013 4:40 PM CDT Refill done. Telephone Encounter - Drea Peter RN - 12/20/2013 4:22 PM CDT Pt calls back and scheduled for Thursday afternoon. She states she is out of the med and asking if she needs to wait until . If so, no call back needed. Telephone Encounter - Adrienne Ortiz - 12/20/2013 1:51 PM CDT Left message for patient to call clinic for scheduling. Telephone Encounter - Drea Peter RN - 12/20/2013 10:19 AM CDT Pt is due for OV prior to further refills. Please call her. Telephone Encounter - Francia Nair MD - 12/19/2013 7:45 PM CDT See last message from October; she was supposed to be seen prior to further refills. Call and advise and schedule appt. Telephone Encounter - Kasey Montes, RN - 12/19/2013 3:21 PM CDT Refill request for Adderall XR 10 mg requires provider authorization. Last OV 04/04/13 Last refill 11/14/13 #60 Kasey Montes RN Telephone Encounter - Adrienne Ortiz - 12/19/2013 8:43 AM CDT Refill request from Patient for: ADDERALL XR Last O/V: 04/04/13 Last Refill: 11/14/13 Please call when RX is ready for machine operator hop picker at the desktop manager. documented in this encounter Plan of Treatment Not on filedocumented as of this encounter Visit Diagnoses Diagnosis ADD (attention deficit disorder) Attention deficit disorder without menti on of hyperactivity documented in this encounter Care Teams Sales Marketing Director Relationship Specialty Start Date End Date Francia Nair MD PCP - General Internal Medicine 01/28/[address] [place] [address] [phone] Francia Nair MD PCP - Assigned PCP 01/07/13 06/29/[address] [place] [address] [phone] Francia Nair MD Assigned PCP 01/07/[address] [place] [address] [phone] documented as of this encounter
--- OUTSIDE RECORDS SUMMARY | 2022-01-30 11:39 | XMS_ITS | Encounter Summary ---
:1960 Author Organization [place] Address [address] [place] [address]. [place] [address] Care Team Providers Name Role Phone Francia Nair MD Primary Care Provider Francia Nair MD Unavailable Francia Nair MD Unavailable Julieth Montes OD Unavailable [phone] Ip, Alber Vuong MD Unavailable Reason for Visit Reason Onset Date Comments Refill Request 01/13/2014 Encounter Details Date Type Department Care Team Description 01/13/2014 MyC Refill [facility] Kin Nair MD Refill Request [place] [address] [address] [facility] [place] [address] [phone] Social History Tobacco Use Types Packs/Day Years [...] 08/12/2021 relatives? How often do you attend anabaptism or mandaen Never 08/12/2021 services? Do you belong to any clubs or organizations such as Yes 08/12/2021 anabaptism groups, unions, fraternal or athletic groups, or [...] on filedocumented in this encounter Care Teams Liquified Natural Gas Specialist Relationship Specialty Start Date End Date Francia Nair MD PCP - General Internal Medicine 01/28/[address] [place] [address] [phone] Francia Nair MD PCP - Assigned PCP 01/07/13 06/29/[address] [place] [address] [phone] Francia Nair MD Assigned PCP 01/07/[address] [place] [address] [phone] Julieth Montes Assigned Surgical 03/17/21 LEANA Felton Provider [facility]5 [facility] [place] [address] Alber Mendez MD Assigned Heart and 08/11/21 [address] Vascular Provider [place] BERNARD [id number] documented as of this encounter
--- OUTSIDE RECORDS SUMMARY | 2022-01-30 11:39 | XMS_ITS | Encounter Summary ---
:1960 Author Organization [place] Address [address] [place] [address] Care Team Providers Name Role Phone Francia Nair MD Primary Care Provider Francia Nair MD Unavailable Francia Nair MD Unavailable Reason for Visit Reason Onset Date Comments Refill Request 03/29/2015 methylphenidate ER Encounter Details Date Type Department Care Team Description 03/29/2015 Refill [facility] Francia Nair MD Refill Request Clinic [place] [address] (methylphenidate ER ) [address] [place] [address] [place] [address] [place], [place] [phone] (Wo rk) [address] [phone] Social History Tobacco Use Types Packs/Day Years [...] How often do you attend protestant or zoroastrianism Never 08/12/2021 services? Do you [...] Notes Telephone Encounter - Adrienne Ortiz - 03/29/2015 2:21 PM CST Left message for patient to advise RX is ready for knot picker cloth with picture ID. IFIED DIABETES EDUCATOR Telephone Encounter - Francia Nair MD - 03/29/2015 11:44 AM CST Done. IFIED DIABETES EDUCATOR Telephone Encounter - Diogo Benoit RN - 03/29/2015 8:54 AM CST Pt is calling for refill Methylphenidate ER Last Written Prescription Date: Last Fill Quantity: 30, # refills: 0 Last Office Visit with [facility] primary care provider: 08/07/14 Future Office visit: Routing refill request to provider for review/approval because: Drug not on the [facility] refill protocol or controlled substance Med Pended Call pt once RX is ready. Estephanie Greenfield, will be picking up for pt IFIED DIABETES EDUCATOR documented in this encounter Plan of Treatment Not on filedocumented as of this encounter Visit Diagnoses Diagnosis ADD (attention deficit disorder) - Prima ry Attention deficit disorder without menti on of hyperactivity documented in this encounter Care Teams Notched Blade Loader Relationship Specialty Start Date End Date Francia Nair MD PCP - General Internal Medicine 01/28/13 [address] [place] [address] Francia Nair MD PCP - Assigned PCP 01/07/13 06/29/18 [address] [place] [address] Francia Nair MD Assigned PCP 01/07/13 [address] [facility] [address] [place] [address] documented as of this encounter
--- OUTSIDE RECORDS SUMMARY | 2022-01-30 11:39 | XMS_ITS | Encounter Summary ---
:1960 Author Organization [place] Address [address] [place] [address] Care Team Providers Name Role Phone Francia Nair MD Primary Care Provider Francia Nair MD Unavailable Francia Nair MD Unavailable Reason for Visit Reason Onset Date Comments Refill Request 02/14/2014 [facility] isinopril-hctz Encounter Details Date Type Department Care Team Description 02/14/2014 MyC Refill [facility] Francia Nair MD Refill Request Clinic [place] [address] ([place], [address] [place] [address] [place]... [place] [address] [phone] Social History Tobacco Use Types Packs/Day Years [...] How often do you attend moravian or taoism Never 08/12/2021 services? Do you [...] for the very basics like Not h slcik at all 08/12/2021 food, housing, medical care, [...] Notes Telephone Encounter - Adrienne Ortiz - 02/17/2014 12:19 PM CDT Patient called back to authorize Estephanie Greenfield to warehouse picker RX's for her at IM front loader residential driver with a pictureID. Telephone Encounter - Yanci Mcnulty - 02/16/2014 8:23 AM CDT Prescription ready at front loader residential driver. Hansel MACIEL Telephone Encounter - Francia Nair MD - 02/16/2014 7:54 AM CDT Done. Please advise she should call 3 days prior to needing prescription. Telephone Encounter - Drea Peter RN - 02/15/2014 3:29 PM CDT Pt calls for refill of Adderall, lexapro, lisinopril-hctz. She states she will be out of her adderall tomorrow. She asks to send My Chart message when Rx ready. Last OV 12/29/13. Last refill of adderall, on 01/13/14 for #60. Medication requires MD authorization. Please print RxMD signature needed. BP Readings from Last 3 Encounters: 12/29/13 130/78 04/04/13 110/75 01/28/13 138/89 Potassium Date Value Range Status 08/12/2013 4.4 3.4 - 5.3 mmol/L Final ] Creatinine Date Value Range Status 08/12/2013 0.69 0.52 - 1.04 mg/dL Final ] documented in this encounter Plan of Treatment Not on filedocumented as of this encounter Visit Diagnoses Diagnosis HYPERTENSION NOS Unspecified essential hypertension Major depression Major depressive disorder, single episod e, unspecified ADD (attention deficit disorder) Attention deficit disorder without menti on of hyperactivity documented in this encounter Care Teams High School Guidance Counselor Relationship Specialty Start Date End Date Francia Nair MD PCP - General Internal Medicine 01/28/13 [address] [place] [address] [phone] Francia Nair MD PCP - Assigned PCP 01/07/13 06/29/18 [address] [place] [address] [phone] Francia Nair MD Assigned PCP 01/07/13 [address] [place] [address] [phone] documented as of this encounter
--- OUTSIDE RECORDS SUMMARY | 2022-01-30 11:39 | XMS_ITS | Encounter Summary ---
:1960 Author Organization [place] Address [address] [place] [address] Care Team Providers Name Role Phone Francia Nair MD Primary Care Provider Francia Nair MD Unavailable Francia Nair MD Unavailable Reason for Visit Reason Onset Date Comments Refill Request 04/23/2015 methyphenidate Encounter Details Date Type Department Care Team Description 04/23/[address] [facility] Francia Nair MD Refill Request Clinic [place] [address] (methyphenidate ) [address] [place] 200 [place] [address] [place], [place] [phone] (Wo rk) [address] [phone] Social History Tobacco Use Types Packs/Day Years [...] 08/12/2021 relatives? How often do you attend judaism or sabianism Never 08/12/2021 services? Do you belong to any clubs or organizations such as Yes 08/12/2021 judaism groups, unions, fraternal or athletic groups, or [...] Telephone Encounter - Catherine Mariscal MA - 04/24/2015 8:25 AM CST Methylphenidate at the vest front presser. Lm. R REPAIRER Telephone Encounter - Francia Nair MD - 04/24/2015 7:02 AM CST done R REPAIRER Telephone Encounter - Drea Peter RN - 04/23/2015 1:52 PM CST Methylphenidate. OK for Estephanie Greenfield to excelsior picker. Last Written Prescription Date: 03/29/15 Last Fill Quantity: 30, # refills: 0 Last Office Visit with [facility] primary care provider: 08/07/14 Future Office visit: Routing refill request to provider for review/approval because: Drug not on the [facility] refill protocol or controlled substance R REPAIRER documented in this encounter Plan of Treatment Not on filedocumented as of this encounter Visit Diagnoses Diagnosis ADD (attention deficit disorder) - Prima ry Attention deficit disorder without menti on of hyperactivity documented in this encounter Care Teams Planting Material Unloader Relationship Specialty Start Date End Date Francia Nair MD PCP - General Internal Medicine 01/28/13 [address] [place] [address] Francia Nair MD PCP - Assigned PCP 01/07/13 06/29/18 [address] [place] [address] Francia Nair MD Assigned PCP 01/07/13 [address] [facility] [address] [place] [address] documented as of this encounter
--- OUTSIDE RECORDS SUMMARY | 2022-01-30 11:39 | XMS_ITS | Encounter Summary ---
:1960 Author Organization [place] Address [address] [place] [address] Care Team Providers Name Role Phone Francia Nair MD Primary Care Provider Francia Nair MD Unavailable Francia Nair MD Unavailable Reason for Visit Reason Onset Date Comments Refill Request 11/22/2014 methylphenidate Encounter Details Date Type Department Care Team Description 11/22/2014 Refill [facility] Francia Nair MD Refill Request Clinic [place] [address] (methylphenidate) [address] [place] [address] [place] [address] [place], [place] [phone] (Wo rk) [address] [phone] Social History Tobacco Use Types Packs/Day Years [...] How often do you attend yazdanism or muslim Never 08/12/2021 services? Do you [...] this encounter Miscellaneous Notes Telephone Encounter - Lauren Alas MA - 11/23/2014 1:07 PM CDT Voice mail left for patient to call back,please advise that Rx and forms are at front office clerk ready forpick up. Meseret ALAS CMA Telephone Encounter - Francia Nair MD - 11/23/2014 7:11 AM CDT Done. Telephone Encounter - Drea Peter RN - 11/22/2014 1:31 PM CDT Pt calls for refill of methylphenidate. She or partner, Estephanie will potato picker. (she would also like blankConsent to comm and NAIF put in envelope) Methylphenidate Last Written Prescription Date: 10/24/14 Last Fill Quantity: 30, # refills: 0 Last Office Visit with [facility] primary care provider: 08/07/14 Future Office visit: Routing refill request to provider for review/approval because: Drug not on the [facility] refill protocol or controlled substance documented in this encounter Plan of Treatment Not on filedocumented as of this encounter Visit Diagnoses Diagnosis ADD (attention deficit disorder) - Prima ry Attention deficit disorder without menti on of hyperactivity documented in this encounter Care Teams Kennel Staff Member Relationship Specialty Start Date End Date Francia Nair MD PCP - General Internal Medicine 01/28/13 [address] [place] [address] Francia Nair MD PCP - Assigned PCP 01/07/13 06/29/18 [address] [place], [place] [phone] Francia Nair MD Assigned PCP 01/07/13 [address] [place] [address] documented as of this encounter
--- OUTSIDE RECORDS SUMMARY | 2022-01-30 11:39 | XMS_ITS | Encounter Summary ---
:1960 Author Organization [place] Address [address] [place] [address] Care Team Providers Name Role Phone Francia Nair MD Primary Care Provider Francia Nair MD Unavailable Francia Nair MD Unavailable Reason for Visit Reason Onset Date Comments Refill Request 03/27/2014 Adderall Encounter Details Date Type Department Care Team Description 03/27/2014 Refill [facility] Francia Nair MD Refill Request Clinic [place] [address] (Adderall ) [address] [place] [address] [place] [address] [place], [place] [phone] (Wo rk) [address] [phone] Social History Tobacco Use Types Packs/Day Years [...] How often do you attend quaker or anabaptist Never 08/12/2021 services? Do you [...] Notes Telephone Encounter - Yanci Mcnulty - 03/27/2014 12:59 PM CST Pt advised Rx ready at assistant front office manager, she is sick and will send Estephanie Greenfield to pick upRx. Hansel HOT CAR CHARGER AULIC BARKER OPERATOR Telephone Encounter - Francia Nair MD - 03/27/2014 12:48 PM CST Done. AULIC BARKER OPERATOR Telephone Encounter - Magnolia Shields, ALEX - 03/27/2014 12:35 PM CST Pt cld. Needs refill on Adderall. Call when ready Last refill-02/15/14-#60 Last OV-12/29/13 AULIC BARKER OPERATOR documented in this encounter Plan of Treatment Not on filedocumented as of this encounter Visit Diagnoses Diagnosis ADD (attention deficit disorder) Attention deficit disorder without menti on of hyperactivity documented in this encounter Care Teams Swedish Masseuse Relationship Specialty Start Date End Date Francia Nair MD PCP - General Internal Medicine 01/28/[address] [place] [address] Francia Nair MD PCP - Assigned PCP 01/07/13 06/29/[address] [place] [address] [phone] Francia Nair MD Assigned PCP 01/07/[address] [place] [address] documented as of this encounter
--- OUTSIDE RECORDS SUMMARY | 2022-01-30 11:39 | XMS_ITS | Encounter Summary ---
:1960 Author Organization [place] Address [address] [place] [address] Care Team Providers Name Role Phone Francia Nair MD Primary Care Provider Francia Nair MD Unavailable Francia Nair MD Unavailable Reason for Visit Reason Onset Date Comments Refill Request 05/17/2015 Lisinopril-HCTZ Encounter Details Date Type Department Care Team Description 05/17/2015 Refill [facility] Francia Nair MD Refill Request Clinic [place] [address] (Lisinopril-HCTZ) [address] [place] [address] [place], [place] [phone] (Wo rk) [id number] [phone] Social History Tobacco Use Types Packs/Day Years [...] How often do you attend bahai or voodoo Never 08/12/2021 services? Do you belong to [...] Telephone Encounter - Sussy Finley RN - 05/18/2015 8:24 AM CST Prescription approved per [facility] Refill Protocol. T AND PATTERN DESIGNER Telephone Encounter - Joselin Foreman - 05/17/2015 11:04 AM CST Lisinopril-HCTZ Last Written Prescription Date: 02/16/15 Last Fill Quantity: 90, # refills: 0 Last Office Visit with [facility] primary care provider: 08/07/14 POTASSIUM Date Value Ref Range Status 02/16/2015 4.0 3.4 - 5.3 mmol/L Final CREATININE Date Value Ref Range Status 02/16/2015 0.59 0.52 - 1.04 mg/dL Final BP Readings from Last 3 Encounters: 08/07/14 128/76 12/29/13 130/78 04/04/13 110/75 T AND PATTERN DESIGNER documented in this encounter Plan of Treatment Not on filedocumented as of this encounter Visit Diagnoses Diagnosis Essential hypertension - Primary Unspecified essential hypertension documented in this encounter Care Teams Monorail Hooker Relationship Specialty Start Date End Date Francia Nair MD PCP - General Internal Medicine 01/28/[address] [place] [phone] Francia Nair MD PCP - Assigned PCP 01/07/13 06/29/[address] [place] [phone] Francia Nair MD Assigned PCP 01/07/[address] [place] [phone] documented as of this encounter
--- OUTSIDE RECORDS SUMMARY | 2022-01-30 11:39 | XMS_ITS | Encounter Summary ---
:1960 Author Organization [place] Address [address] [place] [address] Care Team Providers Name Role Phone Francia Nair MD Primary Care Provider Francia Nair MD Unavailable Francia Nair MD Unavailable Reason for Visit Reason Onset Date Comments Refill Request 02/15/2015 Lexapro and Lisinopr il-Hctz Encounter Details Date Type Department Care Team Description 02/15/2015 Refill [facility] Francia Nair MD Refill Request (Lexapro [facility] [place] [address] and Lisinopril-Hctz) [address] [place] [address] [place], [place] [phone] (Wo rk) [phone] [phone] Social History Tobacco Use Types Packs/Day Years [...] How often do you attend pentecostalism or voodoo Never 08/12/2021 services? Do you [...] Telephone Encounter - Sussy Finley RN - 02/16/2015 10:41 AM CDT Medication is being filled for 1 time refill only due to: Patient needs labs K+ and creat. Future labs ordered in computer. Pt informed and will schedule a lab only appt. Routing Lexapro refill request to provider for review/approval because: Most recent phq9 outside SO parameters. Telephone Encounter - Adrienne Ortiz - 02/15/2015 10:05 AM CDT Lexapro Last Written Prescription Date: 08/07/14 Last Fill Quantity: 90, # refills: 1 Last Office Visit with [facility] [place] [place] primary care provider: 08/07/14 Last PHQ-9 score on record= PHQ-9 SCORE 08/07/2014 Total Score 6 Lisinopril-Hctz Last Written Prescription Date: 08/07/14 Last Fill Quantity: 90, # refills: 1 Last Office Visit with [facility] [place] [place] primary care provider: 08/07/14 POTASSIUM Date Value Ref Range Status 08/12/2013 4.4 3.4 - 5.3 mmol/L Final CREATININE Date Value Ref Range Status 08/12/2013 0.69 0.52 - 1.04 mg/dL Final BP Readings from Last 3 Encounters: 08/07/14 128/76 12/29/13 130/78 04/04/13 110/75 documented in this encounter Plan of Treatment Not on filedocumented as of this encounter Results Basic metabolic panel (02/16/2015 2:41 PM CDT) [facility] Time Signature Sodium 138 133 - 144 [place] mmol/L [facility] Potassium 4.0 3.4 - 5.3 [place] mmol/L [facility] Chloride 104 94 - 109 [place] mmol/L [facility] Carbon Dioxide 25 20 - 32 [place] mmol/L [facility] Anion Gap 9 3 - 14 [place] mmol/L [facility] Glucose 84 70 - 99 [place] mg/dL [facility] Urea Nitrogen 13 7 - 30 [place] mg/dL [facility] Creatinine 0.59 0.52 - [place] 1.04 CLINICS mg/dL [facility] GFR Estimate >90 >60 [place] Non GFR Calc mL/min/1. CLINICS 7m2 [facility] GFR Estimate >90 >60 [place] If Black GFR Calc mL/min/1. CLIN ICS 7m2 [facility] Calcium 9.2 8.5 - [place] 10.1 CLINICS mg/dL [facility] Specimen Anatomical Collection Method Collection Time Receive d Time (Source) Location / / Volume Laterality Blood specimen 02/16/2015 2:41 PM 015 2:46 (specimen) CDT PM CDT Francia Nair MD LAB - BLOOD ORDERABLES Performing Organization Address City/State/ZIP Code Phon e Number [facility] [address] [place] [address] documented in this encounter Visit Diagnoses Diagnosis Essential hypertension - Primary Unspecified essential hypertension documented in this encounter Care Teams Door Builder Relationship Specialty Start Date End Date Francia Nair MD PCP - General Internal Medicine 01/28/[address] [place] [address] Francia Nair MD PCP - Assigned PCP 01/07/13 06/29/[address] [place] [address] Francia Nair MD Assigned PCP 01/07/[address] [place] [address] documented as of this encounter
--- OUTSIDE RECORDS SUMMARY | 2022-01-30 11:39 | XMS_ITS | Encounter Summary ---
:1960 Author Organization [place] Address [address] [place] [address] Care Team Providers Name Role Phone Francia Nair MD Primary Care Provider Francia Nair MD Unavailable Francia Nair MD Unavailable Reason for Referral Diagnostic Procedure Outpatient - Closed Specialty Diagnoses / Procedures Referred By Contact Refer red To Contact Diagnoses Screen for colon cancer Francia Nair MD [facility] [address] [place] [address] [place] [address] Phone: Fax: Referral ID Status Reason Start Date Expiration Date Visits Requ ested Visits Authorized [id number] Closed 12/29/2013 06/27/2014 1 1 Reason for Visit Reason Comments Follow Up ADD, would like to discuss s kin tag removal under bra line on the right side Encounter Details Date Type Department Care Team Description 12/29/2013 Office Visit [facility] Francia Nair MD ADD (attention deficit disorder) (Primar y Dx); Clinic [place] [address] Major depression; [address] HYPERTENSION NOS; [place], [place] Other abnormal blood organic chemist ry; [place] [address] Screening for breast cancer; [id number] Screen for colon cancer Social History Tobacco Use Types Packs/Day [...] 08/12/2021 relatives? How often do you attend sabianist or mandaen Never 08/12/2021 services? Do you belong to any clubs or organizations such as Yes 08/12/2021 sabianist groups, unions, fraternal or athletic groups, or [...] Sign Reading Time Taken Comments Blood Pressure 130/78 12/29/2013 5:03 PM CDT Pulse 110 12/29/2013 5:03 PM CDT Temperature 37.1 ??C (98.8 ??F) 12/29/2013 5:03 PM CDT Respiratory Rate - - Oxygen Saturation 97% 12/29/2013 5:03 PM CDT Inhaled Oxygen Concentration - - Weight 83.7 kg (184 lb 9.6 oz) 12/29/2013 5:03 PM CDT Height 165.1 cm (5' 5) 12/29/2013 5:03 PM CDT Body Mass Index 30.72 12/29/2013 5:03 PM CDT documented in this encounter Patient Instructions Patient InstructionsFrancia Nair MD - 12/29/2013 5:19 PM CDT Increase the Adderall to 3 in the morning. If you are getting down to just a few left and you can not tell any improvement, we can change medication. If it is clearly helping, I can change the amount. Update me through Mychart when you are down to just a few. documented in this encounter Progress Notes Francia Nair MD - 12/29/2013 5:05 PM CDT SUBJECTIVE: Robbie Miller is a 53 year old female who presents to clinic today for the following health issues: Problems: 1. HTN: doing well 2. ADD: on current dose since 06/10, not feeling much improvement. She notices she still is very distracted, not finishing tasks. 3. Depression: stable 4. Abnormal sugar: due for labs Current Concerns: none Patient Active Problem List Diagnosis ??? TOBACCO USE DISORDER ??? HYPERTENSION NOS ??? OBESITY NOS ??? ADD (attention deficit disorder) ??? CARDIOVASCULAR SCREENING; LDL GOAL LESS THAN 160 ??? Major depression Current Outpatient Prescriptions Medication Sig Dispense Refill ??? amphetamine-dextroamphetamine (ADDERALL XR) 10 MG per capsule Take 2 capsules (20 mg) by mouth daily 60 capsule 0 ??? lisinopril-hydrochlorothiazide (PRINZIDE,ZESTORETIC) 10-12.5 MG per tablet Take 1 tablet by mouth daily 90 tablet 0 ??? escitalopram (LEXAPRO) 20 MG [...] dyspnea. Objective: Patient alert in NAD BP 130/78 Pulse 110 Temp(Src) 98.8 ??F (37.1 ??C) (Oral) Ht 5' 5 (1.651 m) Wt 184 lb 9.6 oz(83.734 kg) BMI 30.72 kg/m2 SpO2 97% ? No Carotids without bruits Lungs clear CV: normal S1, S2 without murmur, S3 or S4. Pulses 2/2 ASRS-v1.1: minimal change her previous, currently in part A. There are 4 symptoms in the soria zone compared to 3 previously Last PHQ-9 score on record= PHQ-9 SCORE ([facility] [place]) 06/28/2013 Total Score 2 Assessment: (314.00) ADD (attention deficit disorder) (primary encounter diagnosis) Comment: not optimal control. Increase medication, consider change to alternative if not improving. Plan: (296.20) Major depression Comment: stable Plan: escitalopram (LEXAPRO) 20 MG tablet Continue med (401.9) HYPERTENSION NOS Comment: doing well Plan: lisinopril-hydrochlorothiazide (PRINZIDE,ZESTORETIC) 10-12.5 MG per tablet Continue med (790.6) Other abnormal blood chemistry Comment: due for recheck sugar Plan: (V76.10) Screening for breast cancer Comment: due Plan: [place] Screening Digital Bilateral (V76.51) Screen for colon cancer Comment: due Plan: GASTROENTEROLOGY ADULT REFERRAL +/- PROCEDURE Francia Nair MD documented in this encounter Nursing Notes Yanci Mcnulty - 12/29/2013 5:05 PM CDT Chief Complaint Patient presents with ??? Follow Up For ADD Initial BP 130/78 Pulse 110 Temp(Src) 98.8 ??F (37.1 ??C) (Oral) Ht 5' 5 (1.651 m) Wt 184 lb 9.6 oz (83.734 kg) BMI 30.72 kg/m2 SpO2 97% ? No Estimated body mass index is 30.72 kg/(m^2) as calculated from the following: Height as of this encounter: 5' 5 (1.651 m). Weight as of this encounter: 184 lb 9.6 oz (83.734 kg). BP completed using cuff size: large JBuffie TRANSFORMATION MANAGER documented in this encounter Plan of Treatment Scheduled Referrals Name Type Priority Associated Diagnoses Order S chedule GASTROENTEROLOGY ADULT Referral Routine Screen for colon O rdered: 12/29/2013 REFERRAL +/- PROCEDURE cancer documented as of this encounter Procedures Procedure Name Priority Date/Time Associated Diagnosis Comme nts HEMOGLOBIN A1C Routine 12/29/2013 5:37 PM Other Abnormal Blood Results for this CDT Chemistry procedure are i n the results section . GLUCOSE Routine 12/29/2013 5:37 PM Other Abnormal Blood R esults for this CDT Chemistry procedure are i n the results section . documented in this encounter Results Hemoglobin A1c (12/29/2013 5:37 PM CDT) athologist Signature Hemoglobin A1C 6.0 4.3 - 6.0 [facility] Specimen Anatomical Collection Method Collection Time Receive d Time (Source) Location / / Volume Laterality Blood specimen 12/29/2013 5:37 PM 014 5:42 (specimen) CDT PM CDT Francia Nair MD LAB - BLOOD ORDERABLES Performing Organization Address City/[facility] Phon e Number [facility] [address] [place], [place] [address] [address] Glucose (12/29/2013 5:37 PM CDT) athologist [facility] Glucose 98 70 - 99 [facility] mg/dL [place] Comment: Effective 11/23/2013, the reference range for this assay has changed to reflect new instrumentation/methodology. Specimen Anatomical Collection Method Collection Time Receive d Time (Source) Location / / Volume Laterality Blood specimen 12/29/2013 5:37 PM 014 5:42 (specimen) CDT PM CDT Francia Nair MD LAB - BLOOD ORDERABLES Performing Organization Address City/[facility]/ZIP [facility] Phon e Number [facility] [address] [place] [address] [address] [facility] [address] [place] [phone] documented in this encounter Visit Diagnoses Diagnosis ADD (attention deficit disorder) - Prima ry Attention deficit disorder without menti on of hyperactivity Major depression Major depressive disorder, single episod e, unspecified HYPERTENSION NOS Unspecified essential hypertension Other abnormal blood chemistry Screen for colon cancer Special screening for malignant neoplasm s, colon documented in this encounter Care Teams Furniture Builder Relationship Specialty Start Date End Date Francia Nair MD PCP - General Internal Medicine 01/28/13 [address] [place] [address] Francia Nair MD PCP - Assigned PCP 01/07/13 06/29/18 [address] [place] [address] [phone] Francia Nair MD Assigned PCP 01/07/13 [address] [place] [address] [phone] documented as of this encounter
--- OUTSIDE RECORDS SUMMARY | 2022-01-30 11:39 | XMS_ITS | Encounter Summary ---
:1960 Author Organization [place] Address [address] [place] [address] Care Team Providers Name Role Phone Francia Nair MD Primary Care Provider Francia Nair MD Unavailable Francia Nair MD Unavailable Reason for Visit Reason Onset Date Comments Refill Request 11/10/2013 Lisinopril-hydrochlo rothiazide Encounter Details Date Type Department Care Team Description 11/10/2013 Refill [facility] Francia Nair MD Refill Request Clinic [place] [address] (Lisinopril-hydrochloro [address] thiazide ) [place] [address] [place], [place] [phone] (Wo rk) [address] [phone] Social History Tobacco Use Types Packs/Day Years [...] How often do you attend confucianist or christian Never 08/12/2021 services? Do you [...] Telephone Encounter - Drea Peter RN - 11/11/2013 8:55 AM CDT Last OV 04/04/13. Authorized refills per SO protocol BP Readings from Last 3 Encounters: 04/04/13 110/75 01/28/13 138/89 12/28/04 110/80 Potassium Date Value Range Status 08/12/2013 4.4 3.4 - 5.3 mmol/L Final ] Creatinine Date Value Range Status 08/12/2013 0.69 0.52 - 1.04 mg/dL Final ] Telephone Encounter - Adrienne Ortiz - 11/10/2013 5:34 PM CDT Refill request from [facility] pharmacy for: Lisinopril-hydrochlorothiazide Last O/V: 04/04/13 Last Refill: 08/10/13 documented in this encounter Plan of Treatment Not on filedocumented as of this encounter Visit Diagnoses Diagnosis HYPERTENSION NOS Unspecified essential hypertension documented in this encounter Care Teams Steel Post Installer Supervisor Relationship Specialty Start Date End Date Francia Nair MD PCP - General Internal Medicine 01/28/[address] [place] [phone] Francia Nair MD PCP - Assigned PCP 01/07/13 06/29/[address] [place], [place] [phone] Francia Nair MD Assigned PCP 01/07/[address] [place], [place] [phone] documented as of this encounter
--- OUTSIDE RECORDS SUMMARY | 2022-01-30 11:39 | XMS_ITS | Encounter Summary ---
:1960 Author Organization [place] Address [address] [place] [address] Care Team Providers Name Role Phone Francia Nair MD Primary Care Provider Francia Nair MD Unavailable Francia Nair MD Unavailable Reason for Visit Reason Onset Date Comments Refill Request 02/21/2015 methyphenidate Encounter Details Date Type Department Care Team Description 02/21/2015 Refill [facility] Francia Nair MD Refill Request Clinic [place] [address] (methyphenidate) [address] [place] [address] [place], [place] [phone] (Wo rk) [address] [phone] Social History Tobacco Use Types Packs/Day Years [...] How often do you attend christianity or latter day Never 08/12/2021 services? Do you belong to [...] Notes Telephone Encounter - Adrienne Ortiz - 02/21/2015 3:10 PM CDT Left message to advise patient RX is ready for pickers material handlers at the mail room with a picture ID. Telephone Encounter - Sussy Finley RN - 02/21/2015 2:19 PM CDT Pt calling for refill on: Methyphenidate Last Written Prescription Date: 01-25-15 Last Fill Quantity: 30, # refills: 0 Last [facility] Visit with [facility] [place] care provider: 08-07-14 Future Office visit: Routing refill request to provider for review/approval because: Drug not on the [facility] refill protocol or controlled substance (Routed to partner d/t PCP out of office until 02-26-15.) documented in this encounter Plan of Treatment Not on filedocumented as of this encounter Visit Diagnoses Diagnosis ADD (attention deficit disorder) - Prima ry Attention deficit disorder without menti on of hyperactivity documented in this encounter Care Teams Underbaster Relationship Specialty Start Date End Date Francia Nair MD PCP - General Internal Medicine 01/28/[address] [place] [address] Francia Nair MD PCP - Assigned PCP 01/07/13 06/29/18 [address] [place] [phone] Francia Nair MD Assigned PCP 01/07/13 [address] [place] [phone] documented as of this encounter
--- OUTSIDE RECORDS SUMMARY | 2022-01-30 11:39 | XMS_ITS | Encounter Summary ---
:1960 Author Organization [place] Address [address] [place] [address] Care Team Providers Name Role Phone Francia Nair MD Primary Care Provider Francia Nair MD Unavailable Francia Nair MD Unavailable Reason for Visit Reason Onset Date Comments Refill Request 09/26/2014 ritalin Encounter Details Date Type Department Care Team Description 09/26/2014 Telephone [facility] Francia Nair MD Refill Request Clinic [place] [address] (ritalin ) [address] [place] [address] [place], [place] [phone] (Wo rk) [phone] [phone] Social History Tobacco Use Types Packs/Day Years [...] How often do you attend sabianism or worship Never 08/12/2021 services? Do you [...] this encounter Miscellaneous Notes Telephone Encounter - Adreinne Ortiz - 09/28/2014 5:22 PM CDT Spoke to patient who gave ok for her partner Estephanie Devlin to picking machine operator helper prescription. Telephone Encounter - Adrienne Ortiz - 09/26/2014 12:13 PM CDT Left message for patient that new dosage of prescription is ready for picking machine operator helper at the front desk auxiliary of Internal Medicine. Telephone Encounter - Francia Nair MD - 09/26/2014 11:42 AM CDT I assume she means she needs increase dose of methylphenidate. I did rx for 27 mg. It can go up further. Telephone Encounter - Drea Peter RN - 09/26/2014 11:11 AM CDT Pt left message that she is on low dose Ritalin for about a month. She would like to have this increased. Last OV 08/07/14. Last refill on 08/07/14 for #30 Medication requires MD authorization. Please print MD Kavon signature needed. documented in this encounter Plan of Treatment Not on filedocumented as of this encounter Visit Diagnoses Diagnosis ADD (attention deficit disorder) - Prima ry Attention deficit disorder without menti on of hyperactivity documented in this encounter Care Teams Annealing Furnace Tender Relationship Specialty Start Date End Date Francia Nair MD PCP - General Internal Medicine 01/28/13 [address] [facility] [address] [place], [place] [phone] Francia Nair MD PCP - Assigned PCP 01/07/13 06/29/18 [address] [place] [address] Francia Nair MD Assigned PCP 01/07/13 [address] [place] [address] [phone] documented as of this encounter
--- OUTSIDE RECORDS SUMMARY | 2022-01-30 11:39 | XMS_ITS | Encounter Summary ---
:1960 Author Organization [place] Address [address] [place] [address] Care Team Providers Name Role Phone Francia Nair MD Primary Care Provider Francia Nair MD Unavailable Francia Nair MD Unavailable Reason for Visit Reason Onset Date Comments Refill Request 10/23/2014 Concerta Encounter Details Date Type Department Care Team Description 10/23/2014 Refill [facility] Francia Nair MD Refill Request Clinic [place] [address] (Concerta) [address] [place] [address] [place], [place] [phone] (Wo rk) [address] [phone] Social History Tobacco Use Types Packs/Day Years [...] How often do you attend pentecostal or spiritism Never 08/12/2021 services? Do you [...] place to sleep or slept in a group home (including now)? Sex Assigned at Date Recorded Female 10/16/2020 6:22 PM CDT documented as of this encounter Miscellaneous Notes Telephone Encounter - Jaz Corea RN - 11/16/2014 2:23 PM CDT Patient picked up prescription 10/25/14. Telephone Encounter - Francia Nair MD - 10/24/2014 5:15 PM CDT Call and advise I suggest she try the 36 mg dose. I did rx. Telephone Encounter - Jaz Corea RN - 10/23/2014 4:56 PM CDT Patient called requesting refill of Methylphenidate. She states she feels like it's working very well for her and she hasn't had any side effects at the current dose. She notes that she thinks she accidentally took more than 27mg one day and states she felt much more clear that day; she did well at work, was able to focus, and stay organized. She doesn't remember what happened and thinks she maybe thought she had forgotten to take it and took another one by mistake. She is wondering if PCP thinks this means she should try a higher dose. Please review and advise. Last Written Prescription Date: 09/26/14 Last Fill Quantity: 30, # refills: 0 Last [place] with [facility] [place] care provider: 08/07/14 Future Office visit: Routing refill request to provider for review/approval because: Drug not on the [facility] refill protocol or controlled substance documented in this encounter Plan of Treatment Not on filedocumented as of this encounter Visit Diagnoses Diagnosis ADD (attention deficit disorder) - Prima ry Attention deficit disorder without menti on of hyperactivity documented in this encounter Care Teams Mincing Machine Operator Relationship Specialty Start Date End Date Francia Nair MD PCP - General Internal Medicine 01/28/13 [address] [place] [address] [phone] Francia Nair MD PCP - Assigned PCP 01/07/13 06/29/18 [address] [place] [address] [phone] Francia Nair MD Assigned PCP 01/07/13 [address] [place] [phone] documented as of this encounter
--- OUTSIDE RECORDS SUMMARY | 2022-01-30 11:40 | XMS_ITS | Encounter Summary ---
:1960 Author Organization [facility] Address [address] [place] [address]. [place] [address] Care Team Providers Name Role Phone Nando Grajeda MD Primary Care Provider [phone] Reason for Visit Reason Onset Date Comments Refill Request 09/15/2005 Andrea Stoneapro Chris Encounter Details Date Type Department Care Team Description 09/15/2005 Refill [facility] Nando Grajeda [facility] Lexapro Chris) [id number] [place] [address] [place] [phone] [place], [place] [address] (Wo rk) Social History Tobacco Use Types Packs/Day Years Used Date Current Every Day Smoker Comments: 3/4 PPD Alcohol Use Standard Drinks/Week [...] How often do you attend restorationist or denominational Never 08/12/2021 services? Do you [...] encounter Miscellaneous Notes Telephone Encounter - Gale Machuca - 09/15/2005 10:03 AM CDT Refilled Pso for quanity of #30 only pt needs to be seen by primary provider before any further refills will be given Last Seen: 12/28/[address] Grajeda for Adhd and acute stress reaction Rtc instructions: pt informed to be seen before any further refills will be given Last Filled: 08/09/05 for #30 Gale Machuca RN. documented in this encounter Plan of Treatment Not on filedocumented as of this encounter Visit Diagnoses Diagnosis DEPRESSIVE DISORDER NEC - Primary Depressive disorder, not elsewhere class ified documented in this encounter Care Teams Hand Kiss Setter Relationship Specialty Start Date End Date Nando Grajeda MD PCP - General 06/08/03 01/27/13 [facility] [address] [place] [address] documented as of this encounter
--- OUTSIDE RECORDS SUMMARY | 2022-01-30 11:40 | XMS_ITS | Encounter Summary ---
:1960 Author Organization [facility] Address [address] [place] [address] Care Team Providers Name Role Phone Francia Nair MD Primary Care Provider Francia Nair MD Unavailable Francia Nair MD Unavailable Reason for Visit Reason Onset Date Comments Refill Request 08/09/2013 Lisinopril-Hydrochlo rothiazide Encounter Details Date Type Department Care Team Description 08/09/2013 Refill [facility] Francia Nair MD Refill Request Clinic [place] [address] (Lisinopril-Hydrochloro [address] thiazide) [place] [address] [place], [place] [phone] (Wo rk) [address] [phone] Social History Tobacco Use Types Packs/Day Years [...] How often do you attend jain or nondenominational Never 08/12/2021 services? Do you belong to [...] Telephone Encounter - Drea Peter RN - 08/10/2013 2:58 PM CDT Pt made appt. Authorized refills per SO protocol also updated number. Telephone Encounter - Adrienne Ortiz - 08/09/2013 2:48 PM CDT Telephone number in chart is invalid. Sent [employer] message advising appointment needed and also requesting valid telephone number. Telephone Encounter - Melida Jordan RN - 08/09/2013 1:22 PM CDT BP Readings from Last 3 Encounters: 04/04/13 110/75 01/28/13 138/89 12/28/04 110/80 Creatinine Date Value Range Status 12/15/2011 0.7 Final 12/15/2011 0.7 Final ] Pt needs to come in for lab work. Please call to schedule. Telephone Encounter - Adrienne Ortiz - 08/09/2013 7:18 AM CDT Refill request from [facility] pharmacy for: Lisinopril-Hydrochlorothiazide Last O/V: 04/04/13 Last Refill: 05/14/13 documented in this encounter Plan of Treatment Not on filedocumented as of this encounter Visit Diagnoses Diagnosis HYPERTENSION NOS Unspecified essential hypertension documented in this encounter Care Teams Spinning Lathe Operator Automatic Relationship Specialty Start Date End Date Francia Nair MD PCP - General Internal Medicine 01/28/13 [address] [place], [place] [phone] Francia Nair MD PCP - Assigned PCP 01/07/13 06/29/18 [address] [place] [phone] Francia Nair MD Assigned PCP 01/07/13 [address] [place] [phone] documented as of this encounter
--- OUTSIDE RECORDS SUMMARY | 2022-01-30 11:40 | XMS_ITS | Encounter Summary ---
:1960 Author Organization [facility] Address [address] [place] [address]. [place] [address] Care Team Providers Name Role Phone Nando Grajeda MD Primary Care Provider [phone] Reason for Visit Reason Onset Date Comments Refill Request 04/15/2006 Lexapro Needs OV, #1 5 given Encounter Details Date Type Department Care Team Description 04/15/2006 Refill [facility] Nando Grajeda Refill Request (Contact At Once!apro Elk MountainJoss Doyle MD Needs OV, #15 given) [address] [place], [place] [address] [place] [phone] [place], [place] [address] (Wo rk) Social History [...] How often do you attend episcopal or tenriism Never 08/12/2021 services? Do you [...] this encounter Miscellaneous Notes Telephone Encounter - Sara Graf - 04/15/2006 9:26 AM CST Date of Last OV: 12/28/04 Reason for visit: ADHD Provider seen: Dr. Grajeda When advised to RTC: no instructions Labs pertaining to med: none Needs an office visit before further refills Letter sent to patient #15 approved until she can get in Sara Graf RN TEST DESK WORKER documented in this encounter Plan of Treatment Not on filedocumented as of this encounter Visit Diagnoses Diagnosis DEPRESSIVE DISORDER NEC Depressive disorder, not elsewhere class ified documented in this encounter Care Teams Internetworking Technician Relationship Specialty Start Date End Date Nando Grajeda MD PCP - General 06/08/03 01/27/[address] [place] [address] documented as of this encounter
--- OUTSIDE RECORDS SUMMARY | 2022-01-30 11:40 | XMS_ITS | Encounter Summary ---
:1960 Author Organization [facility] Address [address] [place] [address] Care Team Providers Name Role Phone Francia Nair MD Primary Care Provider Francia Nair MD Unavailable Francia Nair MD Unavailable Reason for Visit Reason Onset Date Comments Refill Request 02/28/2013 ADDERALL XR Encounter Details Date Type Department Care Team Description 02/28/2013 Refill [facility] Francia Nair MD Refill Request Clinic [place] [address] (ADDERALL XR) [address] [place] [address] [place], [place] [phone] (Wo rk) [address] [phone] Social History Tobacco Use Types Packs/Day Years [...] How often do you attend druze or hindu Never 08/12/2021 services? Do you belong to [...] this encounter Miscellaneous Notes Telephone Encounter - Magnolia Shields RN - 03/01/2013 7:23 AM CST Cld pt-relayed rx at front line leader [facility] Telephone Encounter - Liv Eller NP - 03/01/2013 7:18 AM CST Done [facility] Telephone Encounter - Jaz Coera RN - 02/28/2013 7:52 AM CST Provider approval needed. Last OV 01/28/13 Last Fill 01/28/13 #30 [facility] Telephone Encounter - Adrienne Ortiz - 02/28/2013 7:41 AM CST Refill request from Patient for: ADDERALL XR Last O/V: 01/28/13 Last Refill: 01/28/13 Patient is requesting RX be mailed to her home address. Please call her directly to confirm if mailed. [facility] documented in this encounter Plan of Treatment Not on filedocumented as of this encounter Visit Diagnoses Diagnosis Unspecified essential hypertension - Marlyn acosta ADD (attention deficit disorder) Attention deficit disorder without menti on of hyperactivity documented in this encounter Care Teams Bag Printer Relationship Specialty Start Date End Date Francia Nair MD PCP - General Internal Medicine 01/28/13 [address] [place] [address] Francia Nair MD PCP - Assigned PCP 01/07/13 06/29/[address] [place] [address] Francia Nair MD Assigned PCP 01/07/13 [address] [place] [address] documented as of this encounter
--- OUTSIDE RECORDS SUMMARY | 2022-01-30 11:40 | XMS_ITS | Encounter Summary ---
:1960 Author Organization [facility] Address [address] [place] [address] Care Team Providers Name Role Phone Francia Nair MD Primary Care Provider Francia Nair MD Unavailable Francia Nair MD Unavailable Reason for Visit Reason Onset Date Comments Panel Management 07/13/2013 GI physician/allergy/immunology- Colono scopy Encounter Details Date Type Department Care Team Description 07/13/[address] [facility] Francia Nair MD Panel Management (GI [facility] [place] [address] physician/allergy/immunology- [address] [place] [address] Colonoscopy) [place] [address] [place], [place] [phone] (Wo rk) [address] [phone] Social History Tobacco Use Types Packs/Day Years [...] How often do you attend mormon or synagogue Never 08/12/2021 services? Do you [...] this encounter Miscellaneous Notes Telephone Encounter - LatoyakaterinaSophy - 07/13/2013 10:22 AM CDT Attempted to contact patient 3x. Unable to reach patient. Not scheduled. documented in this encounter Plan of Treatment Not on filedocumented as of this encounter Visit Diagnoses Not on filedocumented in this encounter Care Teams Oracle Programmer Relationship Specialty Start Date End Date Francia Nair MD PCP - General Internal Medicine 01/28/13 [address] [place] [address] Francia Nair MD PCP - Assigned PCP 01/07/13 06/29/18 [address] [place] [phone] Francia Nair MD Assigned PCP 01/07/13 [address] [place] [address] documented as of this encounter
--- OUTSIDE RECORDS SUMMARY | 2022-01-30 11:40 | XMS_ITS | Encounter Summary ---
:1960 Author Organization [facility] Address [address] [place] [address] Care Team Providers Name Role Phone Nando Grajeda MD Primary Care Provider [phone] Reason for Visit Reason Onset Date Comments Refill Request 12/26/2004 Encounter Details Date Type Department Care Team Description 12/26/[address] [facility] Kin Lozano MD Refill Request [facility] [place] INFO [place]OUND [place] [address] [facility] [place] [address] [place] [address] Social History Tobacco Use Types Packs/Day Years [...] How often do you attend samaritan or taoism Never 08/12/2021 services? Do you [...] this encounter Miscellaneous Notes Telephone Encounter - Antonia Ellis - 12/26/2004 4:19 PM CDT Pt calling, wondering why her rx lexapro has not been filled. I informed pt that the rx was forwarded to at [facility], and she stated she doesn't want to go to the [facility], she would like to come in to see [place]. 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 Robe Ellis RN documented in this encounter Plan of Treatment Not on filedocumented as of this encounter Visit Diagnoses Diagnosis DEPRESSIVE DISORDER NEC Depressive disorder, not elsewhere class ified documented in this encounter Care Teams Fire Coordinator Relationship Specialty Start Date End Date Nando Grajeda MD PCP - General 06/08/03 01/27/[address] [place] [address] documented as of this encounter
--- OUTSIDE RECORDS SUMMARY | 2022-01-30 11:40 | XMS_ITS | Encounter Summary ---
:1960 Author Organization [facility] Address [address] [place] [address] Care Team Providers Name Role Phone Nando Grajeda MD Primary Care Provider [phone] Reason for Visit Reason Onset Date Comments Medication Request 01/27/2006 Pt has no insurance coverage at this time, req. samples lexapro Encounter Details Date Type Department Care Team Description 01/27/2006 [facility] (Pt [facility]oss Doyle MD has no insurance [id number] [facility] coverage at this time, [place], [place] [address] [facility] [address] req. samples lexapro) [phone] [place], [place] [address] Social History Tobacco Use Types Packs/Day Years [...] 08/12/2021 relatives? How often do you attend lutheran or church Never 08/12/2021 services? Do you belong to any clubs or organizations such as Yes 08/12/2021 lutheran groups, unions, fraternal or athletic groups, or [...] encounter Miscellaneous Notes Telephone Encounter - Lacey Ramirez - 01/28/2006 11:25 AM CDT Samples left at front services agent for pt. Will call back to make an appt when she knows when for sure her insurance will kick in.Lacey Roland, RN Telephone Encounter - Antonia Ellis - 01/27/2006 3:30 PM CDT Pt is calling, states she has no insurance at the time, and is wondering if [place] would authorize for her to get some lexapro samples. Last refill: #30 on 09/15/05, pt told to make appt. Last OV: 12/28/04 Please call pt back. ThanksRobe R.N. documented in this encounter Plan of Treatment Not on filedocumented as of this encounter Visit Diagnoses Diagnosis DEPRESSIVE DISORDER NEC Depressive disorder, not elsewhere class ified documented in this encounter Care Teams Roastmaster Relationship Specialty Start Date End Date Nando Grajeda MD PCP - General 06/08/03 01/27/13 [facility] EL[facility]ABETH [facility] [address] [place] [address] documented as of this encounter
--- OUTSIDE RECORDS SUMMARY | 2022-01-30 11:40 | XMS_ITS | Encounter Summary ---
:1960 Author Organization [facility] Address [address] [place] [address] Care Team Providers Name Role Phone Francia Nair MD Primary Care Provider Francia Nair MD Unavailable Francia Nair MD Unavailable Reason for Visit Reason Onset Date Comments Medication Question 02/01/2013 lisinopril. Encounter Details Date Type Department Care Team Description 02/01/2013 Telephone [facility] Francia Nair MD Medication Question Clinic [place] [address] (lisinopril. ) [address] [place] [address] [place], [place] [phone] (Wo rk) [address] [phone] Social History Tobacco Use Types Packs/Day Years [...] How often do you attend anabaptism or cheondoism Never 08/12/2021 services? Do you [...] Telephone Encounter - Francia Nair MD - 02/01/2013 6:15 PM CDT Done. Telephone Encounter - Drea Peter, RN - 02/01/2013 12:04 PM CDT Pharmacy sends fax stating pt erroneously told Dr Nair that she takes Lisinopril 10 mg. She in fact has been on lisinopril-hctz 10 mg/12.5 mg. They need new Rx. Call to pt to confirm. Left message to call clinic. ##Pt calls back. She states this is correct, that she should be taking the lisinopril-hctz. Provider approval needed. documented in this encounter Plan of Treatment Not on filedocumented as of this encounter Visit Diagnoses Diagnosis HYPERTENSION NOS - Primary Unspecified essential hypertension documented in this encounter Care Teams Staff Analyst Relationship Specialty Start Date End Date Francia Nair MD PCP - General Internal Medicine 01/28/[address] [place] [address] Francia Nair MD PCP - Assigned PCP 01/07/13 06/29/[address] [place] [address] Francia Nair MD Assigned PCP 01/07/[address] [place] [address] documented as of this encounter
--- OUTSIDE RECORDS SUMMARY | 2022-01-30 11:40 | XMS_ITS | Encounter Summary ---
:1960 Author Organization [facility] Address [address] [place] [address]. [place] [address] Care Team Providers Name Role Phone Nando Grajeda MD Primary Care Provider Reason for Visit Reason Onset Date Comments Refill Request 04/11/2005 Ritalin Encounter Details Date Type Department Care Team Description 04/11/2005 Refill [facility] Nando Grajeda Refill Request (Ritalin) Austin MD Vivek [address] [place] [phone] [place], [place] [address] (Wo rk) Social History [...] How often do you attend judaism or yarsani Never 08/12/2021 services? Do you [...] this encounter Miscellaneous Notes Telephone Encounter - Penny Ferrara - 08/12/2005 9:32 AM CDT Rx left at front and patient never picked it up.SHREDDED.Penny Ferrara INSPECTOR MATERIAL DISPOSITION Telephone Encounter - Alethea Osorio - 04/14/2005 9:58 AM CST LMOM that rx left up front for potato picker Alethea Osorio MA ST FIREFIGHTER Telephone Encounter - Sara Graf - 04/11/2005 4:18 PM CST Pt. calling requesting a refill for Ritalin. She will take her last dose on Thursday Needs to be picked up by her to bring to the pharmacy. Last OV was 12/28/[address] Grajeda Will need to send to another provider in [place]'s absence Please call pt. at her home number when ready or if problems Sara Graf RN ST FIREFIGHTER documented in this encounter Plan of Treatment Not on filedocumented as of this encounter Visit Diagnoses Diagnosis Depressive disorder, not elsewhere class ified documented in this encounter Care Teams Barber Relationship Specialty Start Date End Date Nando Grajeda MD PCP - General 06/08/03 01/27/13 [facility] [address] [facility] [address] [place] [address] documented as of this encounter
--- OUTSIDE RECORDS SUMMARY | 2022-01-30 11:40 | XMS_ITS | Encounter Summary ---
:1960 Author Organization [facility] Address [address] [place] [address] Care Team Providers Name Role Phone Nando Grajeda MD Primary Care Provider [phone] Reason for Visit Reason Comments Refill Request on lexapro and lisinopril Encounter Details Date Type Department Care Team Description 12/28/2004 Office Visit [facility] Nando Grajeda ATTN DE FICIT NONHYPERACT; Clinic [place] MD Vivek ACUTE STRESS REACT NOS; [id number] [facility] DEPRESSIVE DISORDER [place], [place] [address] [place] [phone] 95 [place] [address] Social History Tobacco Use Types Packs/Day Years [...] How often do you attend latter-day or scientologist Never 08/12/2021 services? Do you [...] Sign Reading Time Taken Comments Blood Pressure 110/80 12/28/2004 8:30 AM CDT Pulse 88 12/28/2004 8:30 AM CDT Temperature - - Respiratory Rate - - Oxygen Saturation - - Inhaled Oxygen Concentration - - Weight 94.3 kg (208 lb) 12/28/2004 8:30 AM CDT Height - - Body Mass Index 34.61 10/07/2004 2:45 PM CDT documented in this encounter Progress Notes Nando Grajeda - 12/28/2004 1:25 PM CDT Robbie Sami Miller, a 44 year old female scheduled an appointment to discuss these issues: Please refer to Note section below for further subjective details. ATTN DEFICIT NONHYPERACT ACUTE STRESS REACT NOS DEPRESSIVE DISORDER NEC Medical, surgical, family and social histories all reviewed and updated. ROS: CONSTITUTIONAL:NEGATIVE for fever, chills, change in weight EYES: NEGATIVE for vision changes or irritation RESP:NEGATIVE for significant cough or SOB CV: NEGATIVE for chest pain, palpitations or peripheral edema NEURO: NEGATIVE for weakness, dizziness or paresthesias PSYCHIATRIC: NEGATIVE for changes in mood or affect and feels fore energitic on ssri BP 110/80 Pulse 88 Wt 208 lbs (94.3kg) LMP Hysterectomy EXAM: GENERAL APPEARANCE: healthy, alert and no distress RESP: lungs clear to auscultation - no rales, rhonchi or wheezes CV: regular rates and rhythm, normal S1 S2, no S3 or S4 and no murmur, click or rub SKIN: no suspicious lesions or rashes NEURO: Normal strength and tone, , mentation intact and speech normal PSYCH: mentation appears normal. and affect normal/bright 314.00 ATTN DEFICIT NONHYPERACT Note: decribes poor focus, hard time in school, easy distractablitiy, Plan: trial of ritalin 308.9 ACUTE STRESS REACT NOS Note: tolerates well w/ ssri Plan: 311 DEPRESSIVE DISORDER NEC Note: conseled 15/25 min re progress Plan: LEXAPRO 20 MG OR TABS documented in this encounter Nursing Notes 12/28/2004 8:30 AM CDT >> DELL MUNOZ 12/28/2004 8:42 am Robbie Woodsonmatthewkaterina presents for medication refill. Initial BP 110/80 Pulse 88 Wt 208 lbs (94.3kg) LMP Hysterectomy Estimated Body Mass Index is 34.61 kg/(m^2) as calculated from: Height of 5' 5 (1.651m) as of 10/07/04 Weight of 208 lbs (94.348 kg) as of this encounter. BP completed using cuff size: large. DELL MUNOZ CMA documented in this encounter Plan of Treatment Not on filedocumented as of this encounter Visit Diagnoses Diagnosis Attention deficit disorder without menti on of hyperactivity Unspecified acute reaction to stress DEPRESSIVE DISORDER NEC Depressive disorder, not elsewhere class ified documented in this encounter Care Teams Executive Administrative Asst Relationship Specialty Start Date End Date Nando Grajeda MD PCP - General 06/08/03 01/27/13 [facility] ELISABETH Herrera [facility] [address] [place] [address] documented as of this encounter
--- OUTSIDE RECORDS SUMMARY | 2022-01-30 11:40 | XMS_ITS | Encounter Summary ---
:1960 Author Organization [facility] Address [address] [place] [address] Care Team Providers Name Role Phone Francia Nair MD Primary Care Provider Francia Nair MD Unavailable Francia Nair MD Unavailable Reason for Referral Diagnostic Procedure Outpatient - Closed Specialty Diagnoses / Procedures Referred By Contact Refer red To Contact Diagnoses Screening for colon cancer Francia Nair MD [facility] [address] [place] [address] [address] [place] [address] Phone: Fax: Referral ID Status Reason Start Date Expiration Date Visits Requ ested Visits Authorized [id number] Closed 06/30/2013 12/27/2013 1 1 UNTING CLERKS SUPERVISOR Reason for Visit Reason Onset Date Comments Depression 06/28/2013 Referral 06/28/2013 GI colonoscopy Refill Request 06/28/2013 adderall Encounter Details Date Type Department Care Team Description 06/28/2013 Telephone [facility] Francia Nair MD Depression; Referral Clinic [place] [address] (GI colonoscopy ); [address] [place] [address] (adderall) [place], [place] [phone] (Wo rk) [address] [phone] Social History Tobacco Use Types Packs/Day Years [...] How often do you attend anglican or restoration Never 08/12/2021 services? Do you belong to [...] this encounter Miscellaneous Notes Telephone Encounter - Lindsey Dixon CMA - 06/30/2013 12:46 PM CST I will hold rx's at my desk until patient comes in next Thursday. Lindsey Dixon/RAHEEM UNTING CLERKS SUPERVISOR Telephone Encounter - Lindsey Dixon CMA - 06/30/2013 12:44 PM CST Patient will call back. Lindsey Dixon/RAHEEM UNTING CLERKS SUPERVISOR Telephone Encounter - Francia Nair MD - 06/30/2013 11:48 AM CST Done. UNTING CLERKS SUPERVISOR Telephone Encounter - Drea Peter RN - 06/30/2013 11:22 AM CST Pt calls back. Last PHQ-9 score on record= 2 She is also asking for Adderall refill and if Dr Nair would be able to give her a few months at time, since doesn't live nearby. Last refill on 06/06/13 for #60. She has lab appt on Thursday and will poultry picking machine tender Rx at clinic then. Also pended Colonoscopy referral per her request. Gave her Breast center #. UNTING CLERKS SUPERVISOR Telephone Encounter - Lindsey Dixon CMA - 06/30/2013 9:17 AM CST Left message on answering machine for patient. Lindsey Dixon/RAHEEM UNTING CLERKS SUPERVISOR Telephone Encounter - Francia Nair MD - 06/28/2013 1:55 PM CST Please call and do [id number]. UNTING CLERKS SUPERVISOR documented in this encounter Plan of Treatment Scheduled Referrals Name Type Priority Associated Diagnoses Order S [facility] GASTROENTEROLOGY ADULT Referral Routine Screening for colo n Ordered: 06/30/2013 REFERRAL +/- PROCEDURE cancer documented as of this encounter Visit Diagnoses Diagnosis ADD (attention deficit disorder) - Prima ry Attention deficit disorder without menti on of hyperactivity Screening for colon cancer Special screening for malignant neoplasm s, colon documented in this encounter Care Teams Physical Fitness Trainer Relationship Specialty Start Date End Date Francia Nair MD PCP - General Internal Medicine 01/28/13 [address] [place] [address] Francia Nair MD PCP - Assigned PCP 01/07/13 06/29/18 [address] [place] [address] Francia Nair MD Assigned PCP 01/07/13 [address] [place] [address] documented as of this encounter
--- OUTSIDE RECORDS SUMMARY | 2022-01-30 11:40 | XMS_ITS | Encounter Summary ---
:1960 Author Organization [place] Address [address] [place] [address] Care Team Providers Name Role Phone Ita Nair MD Primary Care Provider Ita Nair MD Unavailable Ita Nair MD Unavailable Encounter Details Date Type Department Care Team Description 08/12/2013 Orders Only [facility] Rou marco antonio history and physical examination of adult (Primary Dx); [facility] Unspecified essential hypert ension; [address] Other abnormal blood [place] [address] Social History Tobacco Use [...] How often do you attend anabaptism or pentecostalism Never 08/12/2021 services? Do you belong to [...] Addendum Note - Ita Nair MD - 08/15/2013 7:50 AM CDT Addended by: ITA NAIR on: 08/15/2013 07:50 AM Modules accepted: Orders documented in this encounter Plan of Treatment Not on filedocumented as of this encounter Procedures Procedure Name Priority Date/Time Associated Diagnosis Comme nts ALBUMIN RANDOM URINE Routine 08/12/2013 9:15 AM Unspecified R esults for this QUANTITATIVE CDT essential procedure are i n hypertension the results section. LIPID REFLEX TO Routine 08/12/2013 9:15 AM Routine history and Results for this DIRECT LDL PANEL CDT physical examination pro cedure are in of adult the results section. BASIC METABOLIC PANEL Routine 08/12/2013 9:15 AM Routine histo ry and Results for this CDT physical examination procedu re are in of adult the results section. documented in this encounter Results Microalbumin quantitative random urine (08/12/2013 9:15 AM CDT) Component Value Ref Test Analysis Performed At Patholo gist Range Method Time Signature Creatinine 186 mg/dL [facility] Urine [facility] Albumin Urine <5 mg/L [facility] mg/L Urine Microalbumin lowest re portable value has been changed from 2 mg/L to 5 [facility] mg/L due to a methodology change on July. [facility] Albumin Urine Unable to 0 - 25 [facility] mg/g Cr calculate mg/g Cr [facility] Specimen Anatomical Collection Method Collection Time Receive d Time (Source) Location / / Volume Laterality Urine specimen 08/12/2013 9:15 AM 014 9:20 (specimen) CDT AM CDT Ita Nair MD LAB - URINE ORDERABLES Performing Organization Address City/State/ZIP Code Phon e Number [facility] [address] [place], [place] [phone] [place] [address] LABS (ABNORMAL) Basic metabolic panel (08/12/2013 9:15 AM CDT) P athologist Signature Sodium 143 133 - 144 [facility] mmol/L [facility] Potassium 4.4 3.4 - 5.3 [facility] mmol/L [facility] Chloride 103 94 - 109 [facility] mmol/L [facility] Carbon Dioxide 26 20 - 32 [place] mmol/L [facility] Anion Gap 14 6 - 17 [place] mmol/L [facility] Glucose 108 (H) 60 - 99 [place] mg/dL [facility] Comment: Fasting specimen Urea Nitrogen 14 7 - 30 mg/dL [facility] Creatinine 0.69 0.52 - 1.04 mg/dL [facility] GFR Estimate 89 >60 mL/min/1.7m2 [facility] [place] GFR Estimate If Black >90 >60 mL/min/1.7m2 F [facility] Calcium 9.4 8.5 - 10.4 mg/dL [facility] [place] Specimen Anatomical Collection Method Collection Time Receive d Time (Source) Location / / Volume Laterality Blood specimen 08/12/2013 9:15 AM 014 9:20 (specimen) CDT AM CDT Ita Nair MD LAB - BLOOD ORDERABLES Performing Organization Address City/State/ZIP Code Phon e Number [facility] [address] [place] [address] (ABNORMAL) Lipid Profile with reflex to direct LDL (08/12/2013 9:15 AM CDT) athologist Signature Cholesterol 188 <200 mg/dL [facility] Comment: LDL Cholesterol is the primary guide to therapy. The NCEP recommends further evaluation of: patients with cholesterol greater than 200 mg/dL if additional risk facto rs are present, cholesterol greater than 240 mg/dL, triglycerides greater than 1 50 mg/dL, or HDL less than 40 mg/dL. Triglycerides 135 0 - 150 mg/dL [facility] [place] HDL Cholesterol 38 (L) >50 mg/dL [facility] LDL Cholesterol Calculated 123 0 - 129 mg/dL [facility] Comment: LDL Cholesterol is the primary guide to therapy: LDL-cholesterol goal in high risk patients is <100 mg/dL and in very high risk patients is <70 mg/dL. VLDL-Cholesterol 27 0 - 30 mg/dL [facility] Cholesterol/HDL Ratio 4.9 0.0 - 5.0 [facility] Specimen Anatomical Collection Method Collection Time Receive d Time (Source) Location / / Volume Laterality Blood specimen 08/12/2013 9:15 AM 014 9:20 (specimen) CDT AM CDT Ita Nair MD LAB - BLOOD ORDERABLES Performing Organization Address City/State/ZIP Code Phon e Number [address] [phone] documented in this encounter Visit Diagnoses Diagnosis Routine history and physical examination of adult - Primary Routine general medical examination at a health care facility Unspecified essential hypertension Other abnormal blood chemistry documented in this encounter Care Teams Manager Field Service Relationship Specialty Start Date End Date Ita Nair MD PCP - General Internal Medicine 01/28/13 [address] [place] [address] [phone] Ita Nair MD PCP - Assigned PCP 01/07/13 06/29/18 [address] [place] [address] [phone] Ita Nair MD Assigned PCP 01/07/13 [address] [place] [phone] documented as of this encounter
--- OUTSIDE RECORDS SUMMARY | 2022-01-30 11:40 | XMS_ITS | Encounter Summary ---
:1960 Author Organization [place] Address [address] [place] [address] Care Team Providers Name Role Phone Nando Grajeda MD Primary Care Provider [phone] Reason for Visit Reason Onset Date Comments Formulary Issue 01/01/2005 Ritalin Encounter Details Date Type Department Care Team Description 01/01/2005 Telephone [facility] Nando Grajeda Formula ry Issue [facility] MD Vivek (Ritalin) [id number] [place] [phone] [address] [place], [place] [address] Social History Tobacco Use [...] How often do you attend jewish or bahai Never 08/12/2021 services? Do you [...] Notes Telephone Encounter - Penny Ferrara - 01/03/2005 10:41 AM CDT Called Robbie and left message that rx is signed and ready to be picked up at front desk auxiliary. Penny Ferrara STATEMENT CLERKS MANAGER Telephone Encounter - Francia Owusu - 01/01/2005 4:33 PM CDT LMOM that rx faxed to danielle garcia, call if ?'s Francia Owusu RN Telephone Encounter - Nando Grajeda - 01/01/2005 1:00 PM CDT rxd generic Telephone Encounter - 01/01/2005 11:27 AM CDT Staff Message copied by ROSINA LAU on 01/01/2005 at 11:27 AM ------ Message from: KRISTIN ALLEN Created: 01/01/2005 at 9:59 AM Regarding: tn/rx from sat not covered by ins can pt get something else/kd Ritilin not covered by [facility] can pt get something different call for tile picker [phone] documented in this encounter Plan of Treatment Not on filedocumented as of this encounter Visit Diagnoses Diagnosis Depressive disorder, not elsewhere class ified - Primary documented in this encounter Care Teams Disulfurizer Tender Relationship Specialty Start Date End Date Nando Grajeda MD PCP - General 06/08/03 01/27/13 [facility] [address] [facility] [address] [place] [address] documented as of this encounter
--- OUTSIDE RECORDS SUMMARY | 2022-01-30 11:40 | XMS_ITS | Encounter Summary ---
:1960 Author Organization [place] Address [address] [place] [address] Care Team Providers Name Role Phone Nando Grajeda MD Primary Care Provider [phone] Reason for Visit Reason Onset Date Comments Refill Request 02/24/2005 LISINOPRIL Encounter Details Date Type Department Care Team Description 02/24/2005 Refill [facility] Kin Lozano MD Refill Request Fay XXX NO INFO FOUND (LISINOPRIL) [id number] [facility] XXX [place], [place] XXX [phone] [place] [address] Social History Tobacco Use Types Packs/Day Years [...] How often do you attend worship or quaker Never 08/12/2021 services? Do you [...] encounter Miscellaneous Notes Telephone Encounter - Francia Owusu - 02/24/2005 11:13 AM CST LAST OV: 12/28/04 REASON: ATT DEF, ACUTE STRESS, BP 110/80 PROVIDER: JENNIE LAST REFILL: 01/23/05 CREATININE (mg/dL) Date Value Low High Status 05/07/2004 0.60 Final ] POTASSIUM (mmol/L) Date Value Low High Status 05/07/2004 3.6 Final ] WILL OK TIL 05/02 PSO, THAT IS WHEN THE NEXT SET OF LABS DUE Francia Owusu RN CHECKER documented in this encounter Plan of Treatment Not on filedocumented as of this encounter Visit Diagnoses Diagnosis Unspecified essential hypertension - Marlyn acosta documented in this encounter Care Teams Breastfeeding Peer Counselor Relationship Specialty Start Date End Date Nando Grajeda MD PCP - General 06/08/03 01/27/13 [facility] [address] [place] [address] [address] [place] [address] documented as of this encounter
--- OUTSIDE RECORDS SUMMARY | 2022-01-30 11:40 | XMS_ITS | Encounter Summary ---
:1960 Author Organization [employer] Address [address] [place] [address] Care Team Providers Name Role Phone Francia Nair MD Primary Care Provider Francia Nair MD Unavailable Francia Nair MD Unavailable Reason for Visit Reason Onset Date Comments Refill Request 06/06/2013 Adderall Encounter Details Date Type Department Care Team Description 06/06/2013 Refill [facility] Francia Nair MD Refill Request Clinic [place] [address] (Adderall) [address] [place] [address] [place] [address] [place], [place] [phone] (Wo rk) [address] [phone] Social History Tobacco Use Types Packs/Day Years [...] Notes Telephone Encounter - Adrienne Ortiz - 07/12/2013 10:09 AM CDT Patient came in and picked up RX with Nancy at the front end developer designer. Telephone Encounter - Kasey Montes - 06/08/2013 8:03 AM CST Called pt, unable to leave message, memory full. Kasey Montes RN E [place] Telephone Encounter - Lindsey Dixon - 06/07/2013 10:43 AM CST Left message for patient to call back clinic, rx is at front end developer designer for black pickler. Lindsey Dixon/RAHEEM E [place] Telephone Encounter - Francia Nair MD - 06/07/2013 9:42 AM CST She can increase to 20 mg. It was to be changed to 2 a day and the amount ordered was 60 but directions did not change. I corrected it. Remind her due for labs. E [place] Telephone Encounter - Kasey Montes - 06/06/2013 5:10 PM CST Pt called, left message request refill of Adderall. Pt stated she has been out for a while, just hasn't gotten around to calling. Pt stated she thought she was to take 2 tabs daily. Called pt, She stated PCP was going to increase her dose after last OV 04/04/13, sig on Rx stated to take 1 daily, pt stated she continued to take 1 tab daily. Provider authorization required. 04/04/13 OV not states to increase dose. Please call pt when Rx is ready to black pickler. Last OV 04/04/13 Last refill 04/04/13 #60 Kasey Montes RN E GROOVER documented in this encounter Plan of Treatment Not on filedocumented as of this encounter Visit Diagnoses Diagnosis ADD (attention deficit disorder) - Prima ry Attention deficit disorder without menti on of hyperactivity documented in this encounter Care Teams Green Ware Caster Relationship Specialty Start Date End Date Francia Nair MD PCP - General Internal Medicine 01/28/13 [address] [place] [address] [phone] Francia Nair MD PCP - Assigned PCP 01/07/13 06/29/18 [address] [place] [address] [phone] Francia Nair MD Assigned PCP 01/07/13 [address] [place] [address] [phone] documented as of this encounter
--- OUTSIDE RECORDS SUMMARY | 2022-01-30 11:40 | XMS_ITS | Encounter Summary ---
:1960 Author Organization [place] Address [address] [place] [address]. [place] [address] Care Team Providers Name Role Phone Nando Grajeda MD Primary Care Provider [phone] Reason for Visit Reason Onset Date Comments Refill Request 02/07/2005 Ritalin 10mg Encounter Details Date Type Department Care Team Description 02/07/2005 Refill [facility] Nando Grajeda Ref[facility]) [id number] [place] [phone] [place], [place] [address] (Wo rk) Social History [...] How often do you attend mu-ism or catholic Never 08/12/2021 services? Do you [...] this encounter Miscellaneous Notes Telephone Encounter - Adriana Rg - 02/07/2005 11:16 AM CDT Pt. will p/u rx at front office specialist 02/08/05 AM. Last seen:12/28/04 by [place]. RTC instructions:None Last filled: Not given Adriana Rg RN documented in this encounter Plan of Treatment Not on filedocumented as of this encounter Visit Diagnoses Diagnosis Depressive disorder, not elsewhere class ified - Primary documented in this encounter Care Teams Christmas Tree Farm Crew Boss Relationship Specialty Start Date End Date Nando Grajeda MD PCP - General 06/08/03 01/27/13 [facility] [address] [facility] [address] [place] [address] documented as of this encounter
--- OUTSIDE RECORDS SUMMARY | 2022-01-30 11:40 | XMS_ITS | Encounter Summary ---
:1960 Author Organization [facility] Address [address] [place] [address]. [place] [address] Care Team Providers Name Role Phone Dave Nair MD Primary Care Provider Dave Nair MD Unavailable Dave Nair MD Unavailable Reason for Visit Reason Comments Establish Care Needs refill. Patients rx fo r Wellbutrin states 2 daily but she only takes one Encounter Details Date Type Department Care Team Description 01/28/2013 Office Visit [facility] Dave Nair MD Unspecified essential hypertension (Prim dejan Dx); Clinic [place] [address] (attention deficit disor cathie); [address] [place] [phone] Social History Tobacco Use Types Packs/Day [...] 08/12/2021 relatives? How often do you attend mandaeism or samaritan Never 08/12/2021 services? Do you belong to any clubs or organizations such as Yes 08/12/2021 mandaeism groups, unions, fraternal or athletic groups, [...] Reading Time Taken Comments Blood Pressure 138/89 01/28/2013 4:03 PM CDT Pulse 104 01/28/2013 4:03 PM CDT Temperature 36.8 ??C (98.3 ??F) 01/28/2013 4:03 PM CDT Respiratory Rate - - Oxygen Saturation 97% 01/28/2013 4:03 PM CDT Inhaled Oxygen Concentration - - Weight 102.4 kg (225 lb 12.8 oz) 01/28/2013 4:03 PM CDT Height 162.6 cm (5' 4) 01/28/2013 4:03 PM CDT Body Mass Index 38.76 01/28/2013 4:03 PM CDT documented in this encounter Patient Instructions Patient InstructionsDave Nair MD - 01/28/2013 4:40 PM CDT Stop wellbutrin wean by every 2-3 days or just stop of no side effects. Wait until off Wellbutrin 2-3 day before starting Adderall. If no benefit from 10 mg adderall, increase to 20 mg after 2 weeks. Call in with update prior to refill or sooner if side effects. documented in this encounter Progress Notes Dave Nair MD - 01/30/2013 10:54 AM CDT Subjective: Robbie Miller is a 53 year old female who presents as a new patient to this clinic. Previous care: most recently [facility], was at [facility] prior to that Current concerns: 1. Depression and ADD: she was felt to have ADD in 2004 and tried Ritalin but had palpitations with that. She has not tried other medications since then. She has been on Lexapro for many years for depression. She felt that it has some benefits but has not completely controlled her symptoms. She had been tried on Zoloft and Effexor back in 2003 but had little low benefit from those medications and had some side effects. She was started on Wellbutrin about 2 months ago at 150 mg daily. She was advised to increase to 300 mg but could not tolerate that doto side effects. She feels that Wellbutrin causes some jitteriness, irritability. She does not feel that it has had any benefit on her depression. She overall feels her depression symptoms are mild to moderate but not severe. She complains that she is most bothered by symptoms that may be more due to ADD including difficultyconcentrating, focus, lack of motivation, poor memory. The symptoms affect her work significantly. She finds she will try to work on the case start to work on another and never get back to the first. She has hypertension and reports that her blood pressure has been under good control with [id number] mg. She is not sure when her last Pap and mammogram were. Past Medical History Diagnosis Date ??? Major depression ??? Hypertension ??? ADD (attention deficit disorder) Current Outpatient Prescriptions Medication Sig ??? buPROPion (WELLBUTRIN XL) 150 MG 24 hr tablet Take 1 tablet (150 mg) by mouth every morning ??? amphetamine-dextroamphetamine (ADDERALL XR) 10 MG per capsule Take 1 capsule (10 mg) by mouth daily ??? RITALIN 10 MG OR TABS 2 ??? lisinopril (PRINIVIL,ZESTRIL) 10 MG tablet Take 1 tablet (10 mg) by mouth daily ??? escitalopram (LEXAPRO) 20 MG tablet Take 1 tablet (20 mg) by mouth daily Past Surgical History Procedure Date ??? C nonspecific procedure SBO w/ 3 resected ??? Hysterectomy, jarad has ovaries Family History Problem Relation Age of Onset ??? Heart Father CHF ??? Breast CA Maternal Grandmother ??? Diabetes Maternal Grandmother Type 1 ??? Diabetes Paternal Aunt History Social History ??? Marital Status: Single Spouse Name: N/A Number of Children: 1 ??? Years of Education: N/A Occupational History ??? [employer] Social History Main Topics ??? Smoking status: Current Everyday Smoker ??? Smokeless tobacco: Never Used Comment: 3/4 PPD ??? Alcohol Use: Yes ocassional 1-2 per year ??? Drug Use: No ??? Sexually Active: No Other Topics Concern ??? Not on file Social History Narrative ??? No narrative on file Objective: Patient alert in NAD BP 138/89 Pulse 104 Temp 98.3 ??F (36.8 ??C) (Oral) Ht 5' 4 (1.626 m) Wt 225 lb 12.8 oz (102.422 kg) BMI 38.76 kg/m2 SpO2 97% Last PHQ-9 score on record= 11 ADD questionnaire: 3/6 soria part A, 4 symptoms soria part B Assessment/Plan: 1. Major depression and ADD: Currently she is most bothered by symptoms relating to her ADD than herdepression. Well for her questionnaire is not extreme minutes suggestive. Discussed options for treatment and would consider starting Adderall XR to try to help avoid side effects. Discussed dose and expected results. She may increase from 10 mg to 20 mg in 2-3 weeks if not benefiting. We'll likely follow up in 8 weeks. Since Wellbutrin has not added any improvement in her depression control, suggest weaning off of this. She may have some improvement with controls ADD but could also consider alternative options later. 2. HTN: has been controlled, out of med so restart. 3. HCM: Will get records but seems due for physical, suggest she schedule in a few months. Dave Nair MD 35 minutes spent with the patient, >50% of time spent counseling documented in this encounter Nursing Notes 01/28/2013 4:00 PM CDT >> LINDSEY Squires Jan 28, 2013 4:05 PM Patient presents with: Establish Care - Needs refill. Patients rx for Wellbutrin states 2 daily but she only takes one Initial BP 140/90 Pulse 104 Temp 98.3 ??F (36.8 ??C) (Oral) Ht 5' 4 (1.626 m) Wt 225 lb 12.8 oz (102.422 kg) BMI 38.76 kg/m2 SpO2 97% Estimated Body mass index is 38.76 kg/(m^2) as calculated from the following: Height as of this encounter: 5' 4(1.626 m). Weight as of this encounter: 225 lb 12.8 oz(102.422 kg).. BP completed using cuff size large Lindsey Dixon/RAHEEM documented in this encounter Plan of Treatment Not on filedocumented as of this encounter Visit Diagnoses Diagnosis Unspecified essential hypertension - Marlyn dave DEVANTE (attention deficit disorder) Attention deficit disorder without menti on of hyperactivity Major depression Major depressive disorder, single episod e, unspecified documented in this encounter Care Teams Music Typographer Relationship Specialty Start Date End Date Dave Nair MD PCP - General Internal Medicine 01/28/13 [address] [place] [address] [phone] Dave Nair MD PCP - Assigned PCP 01/07/13 06/29/18 [address] [place] [address] [phone] Dave Nair MD Assigned PCP 01/07/13 [address] [place] [address] [phone] documented as of this encounter
--- OUTSIDE RECORDS SUMMARY | 2022-01-30 11:40 | XMS_ITS | Encounter Summary ---
:1960 Author Organization [place] Address [address] [place] [address]. [place] [address] Care Team Providers Name Role Phone Nando Grajeda MD Primary Care Provider [phone] Reason for Visit Reason Onset Date Comments Medication Question 01/08/2005 Pharmacy needing cla rification on sig of ritalin Encounter Details Date Type Department Care Team Description 01/08/2005 Telephone [facility] Nando Grajeda Medicat ion Question Clinic Hard[facility]Joss Doyle MD (Pharmacy needing [id number] [place] [address] clarification on sig of [place], [place] [address] [place] in) [phone] [address] [place], [place] [address] Social History Tobacco Use [...] How often do you attend restorationism or orthodox Never 08/12/2021 services? Do you [...] this encounter Miscellaneous Notes Telephone Encounter - Lindy Armstrong - 01/09/2005 1:01 PM CDT Pharmacist informed of 2 qd sig. Lindy Armstrong RN Telephone Encounter - Antonia Ellis - 01/08/2005 2:53 PM CDT Pharmacist requesting clarification of Sig. on Ritalin order placed 01/01/05 on Ritalin 10mg. Please clarify and call pharmacy back. Thanks. Robe Ellis RN documented in this encounter Plan of Treatment Not on filedocumented as of this encounter Visit Diagnoses Diagnosis Depressive disorder, not elsewhere class ified - Primary documented in this encounter Care Teams Oil Exploration Engineer Relationship Specialty Start Date End Date Nando Grajeda MD PCP - General 06/08/03 01/27/13 [facility] [place] [address] [facility] [address] [place] [address] documented as of this encounter
--- OUTSIDE RECORDS SUMMARY | 2022-01-30 11:40 | XMS_ITS | Encounter Summary ---
:1960 Author Organization [facility] Address [address] [place] [address] Care Team Providers Name Role Phone Francia Nair MD Primary Care Provider Francia Nair MD Unavailable Francia Nair MD Unavailable Reason for Referral Referral not Required - Closed Specialty Diagnoses / Procedures Referred By Contact Refer red To Contact Diagnoses Screen for colon cancer Francia Nair MD [facility] [address] [place] [address] [address] [place] [address] Phone: Fax: Referral ID Status Reason Start Date Expiration Date Visits Requ ested Visits Authorized [id number] Closed 04/04/2013 10/01/2013 1 1 DRIER Reason for Visit Reason Comments Physical Not fasting, no pap. Encounter Details Date Type Department Care Team Description 04/04/2013 Office Visit [facility] Francia Nair MD Routine history and physical examination of adult (Primary Dx); Clinic [place] [address] Unspecified essential hypert ension; [address] ADD (attention deficit disorder); [place], [place] Tobacco use disorder; [place] [address] Screen for colon cancer; [id number] Need for Tdap vaccination [phone] Social History Tobacco Use Types Packs/Day Years [...] How often do you attend buddhism or sabianism Never 08/12/2021 services? Do you [...] Sign Reading Time Taken Comments Blood Pressure 110/75 04/04/2013 4:28 PM SKIN DRIER Pulse 116 04/04/2013 4:28 PM SKIN DRIER Temperature 36.6 ??C (97.8 ??F) 04/04/2013 4:28 PM SKIN DRIER Respiratory Rate - - Oxygen Saturation 98% 04/04/2013 4:28 PM SKIN DRIER Inhaled Oxygen Concentration - - Weight 101.5 kg (223 lb 12.8 oz) 04/04/2013 4:28 PM SKIN DRIER Height 163.8 cm (5' 4.5) 04/04/2013 4:28 PM SKIN DRIER Body Mass Index 37.82 04/04/2013 4:28 PM SKIN DRIER documented in this encounter Patient Instructions Patient InstructionsFranica Nair MD - 04/04/2013 5:11 PM CST PREVENTIVE HEALTH RECOMMENDATIONS: Vaccines: Get a flu [...] Try to get Vitamin D at least 800 units per day. DRIER documented in this encounter Progress Notes Francia Nair MD - 04/04/2013 3:59 PM CST SUBJECTIVE: CC: Robbie Miller is an 53 year old woman who presents for preventive health visit. Healthy Habits: ?? Do you get at least three servings of calcium containing foods daily (dairy, green leafy vegetables, etc.)? yes ?? Amount of exercise or daily activities, outside of work: No ?? Problems taking medications regularly No ?? Medication side effects: No ?? Have you had an eye exam in the past two years? yes ?? Do you see a dentist twice per year? yes ?? Do you have sleep apnea, excessive snoring or daytime drowsiness?yes Other concerns to address: 1. Smoking cessation: has quit on and off. Usually cold turkey. She has tried chantix which is effective, some side effects from it. She has problems with the patch, adhesive reactions. 2. Not sure adderall has helped; still feels lack of focus. Abuse: Current or Past(Physical, Sexual or Emotional)- No Do you feel safe in your environment - Yes History Substance Use Topics ??? Smoking status: Current Every Day Smoker ??? Smokeless tobacco: Never Used Comment: 3/4 PPD ??? Alcohol Use: Yes Comment: ocassional 1-2 per year Casual History of abnormal Pap smear: Status post benign hysterectomy. Health Maintenance and Surgical History updated. Patient Active Problem List Diagnosis ??? TOBACCO USE DISORDER ??? HYPERTENSION NOS ??? OBESITY NOS ??? ADD (attention deficit disorder) ??? CARDIOVASCULAR SCREENING; LDL GOAL LESS THAN 160 Current Outpatient Prescriptions Medication Status Sig ??? amphetamine-dextroamphetamine (ADDERALL XR) 10 MG per capsule Active Take 1 capsule (10 mg) by mouth daily ??? lisinopril-hydrochlorothiazide (PRINZIDE,ZESTORETIC) 10-12.5 MG per tablet Active Take 1 tablet by mouth daily ??? escitalopram (LEXAPRO) 20 MG tablet Active Take 1 tablet (20 mg) by mouth daily Review Of Systems: Skin: derm recently Eyes: negative Ears/Nose/Throat: had hearing testing done Respiratory: No dyspnea on exertion and No cough Cardiovascular: negative Gastrointestinal: negative Genitourinary: negative Musculoskeletal: negative Neurologic: negative Psychiatric: negative Hematologic/Lymphatic/Immunologic: negative Endocrine: negative Gynecologic ros reveals:no breast pain or new or enlarging lumps on self exam, no discharge or pelvic pain Objective: Patient alert, in no acute distress BP 110/75 Pulse 116 Temp 97.8 ??F (36.6 ??C) (Oral) Ht 5' 4.5 (1.638 m) Wt 223 lb 12.8 oz (101.515 kg) BMI 37.82 kg/m2 SpO2 98% HEENT: extraocular movements are intact, pupils equal [...] absent cervix and uterus, no adnexal masses. Rectovaginal exam unremarkable. REFLEXES: 2+ throughout SKIN: unremarkable ASSESSMENT/PLAN: V70.0 Routine history and physical examination of adult (primary encounter diagnosis) Comment: Plan: MA Screening Digital Bilateral, Lipid Profile with reflex to direct LDL, Basic metabolic panel 401.9 Unspecified essential hypertension Comment: doing well Plan: microalb 314.00 ADD (attention deficit disorder) Comment: increase dose Plan: amphetamine-dextroamphetamine (ADDERALL XR) 10 MG per capsule Call for side effects. 305.1 Tobacco use disorder Comment: discussed med, ways to help prevent restarting Plan: varenicline (CHANTIX STARTING MONTH LILA) 0.5 MG X 11 & 1 MG X 42 tablet, varenicline (CHANTIX) 1 MG tablet V76.51 Screen for colon cancer Comment: ordered Plan: GASTROENTEROLOGY ADULT REFERRAL +/- PROCEDURE V06.1 Need for Tdap vaccination Comment: done4 Plan: ADACEL (TDAP) 11-64 Counseling Resources: ATP III Guidelines FRAX Risk Assessment ICSI Preventive Guidelines Dietary Guidelines for Americans, 2010 USDA's MyPlate reports that she has been smoking. She has never used smokeless tobacco. Tobacco Cessation Action Plan: Pharmacotherapies : Chantix Estimated Body mass index is 38.76 kg/(m^2) as calculated from the following: Height as of 01/28/13: 5' 4(1.626 m). Weight as of 01/28/13: 225 lb 12.8 oz(102.422 kg). Weight management plan: exercise Francia Nair MD, MD [facility] DRIER documented in this encounter Nursing Notes 04/04/2013 4:30 PM CST >> LINDSEY DIXON Mon Apr 04, 2013 4:30 PM Patient presents with: Physical - Not fasting, no pap. Initial BP 110/75 Pulse 116 Temp 97.8 ??F (36.6 ??C) (Oral) Ht 5' 4.5 (1.638 m) Wt 223 lb 12.8 oz (101.515 kg) BMI 37.82 kg/m2 SpO2 98% Estimated Body mass index is 37.82 kg/(m^2) as calculated from the following: Height as of this encounter: 5' 4.5(1.638 m). Weight as of this encounter: 223 lb 12.8 oz(101.515 kg).. BP completed using cuff size large Lindsey Dixon/LAST CLEANER documented in this encounter Plan of Treatment Scheduled Referrals Name Type Priority Associated Diagnoses Order S chedule GASTROENTEROLOGY ADULT Referral Routine Screen for colon O rdered: 04/04/2013 REFERRAL +/- PROCEDURE cancer documented as of this encounter Visit Diagnoses Diagnosis Routine history and physical examination of adult - Primary Routine general medical examination at a health care facility Unspecified essential hypertension ADD (attention deficit disorder) Attention deficit disorder without menti on of hyperactivity Tobacco use disorder Screen for colon cancer Special screening for malignant neoplasm s, colon Need for Tdap vaccination Need for prophylactic vaccination with c ombined racdrrhmvv-gbffzbb-bocjpdwey (DTP) vaccine documented in this encounter Care Teams Fagoter Relationship Specialty Start Date End Date Francia Nair MD PCP - General Internal Medicine 01/28/13 [address] [place] [address] [phone] Francia Nair MD PCP - Assigned PCP 01/07/13 06/29/18 [address] [place] [address] [phone] Francia Nair MD Assigned PCP 01/07/13 [address] [place] [address] [phone] documented as of this encounter
--- OUTSIDE RECORDS SUMMARY | 2022-01-30 11:40 | XMS_ITS | Encounter Summary ---
:1960 Author Organization [facility] Address [address] [place] [address]. [place] [address] Care Team Providers Name Role Phone Nando Grajeda MD Primary Care Provider [phone] Reason for Visit Reason Onset Date Comments Refill Request 03/12/2005 Ritalin refill Slk Encounter Details Date Type Department Care Team Description 03/12/2005 Refill [facility] Nando Grajeda Refill Request ([facility] MD Vivek refill Slk) [id number] [place] [address] [place] [phone] [place], [place] [address] (Wo rk) Social History [...] How often do you attend pentecostalism or buddhist Never 08/12/2021 services? Do you [...] Notes Telephone Encounter - Francia Owusu - 03/12/2005 5:27 PM CST lm rx placed up front, to call if wants mailed Francia Owusu RN SIVE BANDAGE MAKING OPERATOR Telephone Encounter - Gale Machuca - 03/12/2005 3:29 PM CST Needs a refill on Ritalin please call her when this is done, last visit was on 12/28/04 for adhd, with you [phone]. Gale Machuca RN. SIVE BANDAGE MAKING OPERATOR documented in this encounter Plan of Treatment Not on filedocumented as of this encounter Visit Diagnoses Diagnosis Depressive disorder, not elsewhere class ified documented in this encounter Care Teams Pediatrician Managing Partner Relationship Specialty Start Date End Date Nando Grajeda MD PCP - General 06/08/03 01/27/13 [facility] [address] [place] [address] documented as of this encounter
--- OUTSIDE RECORDS SUMMARY | 2022-01-30 11:40 | XMS_ITS | Encounter Summary ---
:1960 Author Organization [facility] Address [address] [place] [address]. [place] [address] Care Team Providers Name Role Phone Francia Nair MD Primary Care Provider Francia Nair MD Unavailable Francia Nair MD Unavailable Reason for Visit Reason Onset Date Comments Refill Request 01/29/2013 90 day supply of Esc italopram and Lisinopril Encounter Details Date Type Department Care Team Description 01/29/2013 Refill [facility] Francia Nair MD Refill Request (90 day Clinic [place] [address] supply of Escitalopram [address] [place] 200 and Lisinopril) [place] [address] [place], [place] [phone] (Wo rk) [address] [phone] Social History Tobacco Use Types Packs/Day Years [...] How often do you attend muslim or cheondoism Never 08/12/2021 services? Do you [...] encounter Miscellaneous Notes Telephone Encounter - Jaz Croea, RN - 01/29/2013 9:33 AM CDT Received faxed request for 90 day supply of Escitalopram and Lisinopril Prescription sent 01/28/13 for 6 month of each. 90 day supplies sent. documented in this encounter Plan of Treatment Not on filedocumented as of this encounter Visit Diagnoses Diagnosis Unspecified essential hypertension - Marlyn acosta Major depression Major depressive disorder, single episod e, unspecified documented in this encounter Care Teams Antique Finisher Relationship Specialty Start Date End Date Francia Nair MD PCP - General Internal Medicine 01/28/13 [address] [place] [address] [phone] Francia Nair MD PCP - Assigned PCP 01/07/13 06/29/18 [address] [place] [phone] Francia Nair MD Assigned PCP 01/07/13 [address] [place] [phone] documented as of this encounter
--- OUTSIDE RECORDS SUMMARY | 2022-01-30 11:41 | XMS_ITS | Encounter Summary ---
:1960 Author Organization [facility] Address [address] [place] [address]. [place] [address] Care Team Providers Name Role Phone Nando Grajeda MD Primary Care Provider [phone] Reason for Visit Reason Onset Date Comments Refill Request 02/14/2004 requesting effexor r brandyn, had appt. today today , she's out ill Encounter Details Date Type Department Care Team Description 02/14/2004 Refill [facility] Kin Lozano MD Refill Request [place] XX NO INFO FOUND (requesting effexor [address] [facility] XXX refill, had appt. today [place], [place] XXX today , she's out ill) [address] [place] [address] Social History Tobacco Use Types Packs/Day Years Used Date Never Assessed Alcohol Habits Answer Date Recorded [...] How often do you attend sabianism or sabianism Never 08/12/2021 services? Do you [...] this encounter Miscellaneous Notes Telephone Encounter - 02/14/2004 12:50 PM CDT >> FARAZ HAWKINS [facility] Feb 15, 2004 8:59 AM Pharmacy selected, please fax. RAHEEM Nava >> NANDO GRAJEDA ThuFeb 14, 2004 9:28 PM no pharm >> ABIMAEL ELLIS ThuFeb 14, 2004 1:09 PM Pt had appt scheduled for today to have a med check on her effexor, but went home ill. She has made an appt. for 02-27-04. Wondering if someone could okay a refill to get her through until her mg jessica Ellis RN documented in this encounter Plan of Treatment Not on filedocumented as of this encounter Visit Diagnoses Diagnosis Depressive disorder, not elsewhere class ified documented in this encounter Care Teams Food Scientist Relationship Specialty Start Date End Date Nando Grajeda MD PCP - General 06/08/03 01/27/[address] [place] [address] documented as of this encounter
--- OUTSIDE RECORDS SUMMARY | 2022-01-30 11:41 | XMS_ITS | Encounter Summary ---
:1960 Author Organization [facility] Address [address] [place] [address] Care Team Providers Name Role Phone Nando Grajeda MD Primary Care Provider [phone] Reason for Visit Reason Comments Medication Problem MD - Wellbutrin problem. Encounter Details Date Type Department Care Team Description 07/20/2003 [facility] Kin Lozano MD Medication Problem (MD - [place] XXX NO INFO FOUND Wellbutrin problem.) [address] [place], [place] [address] [place], [place] [id number] Social History Tobacco Use Types Packs/Day Years [...] How often do you attend yarsanism or jehovah's witness Never 08/12/2021 services? Do you belong to [...] this encounter Miscellaneous Notes Telephone Encounter - 07/20/2003 11:59 PM IMPLEMENTATION PROJECT MANAGER >> JARRET FERNANDO ThuJul 21, 2003 11:12 AM pt. notified. Requests rx called to pharm in [place] for convenience. Called in and pharmacist said will fill so has only 1 co-pay. Jarret Fernando RN >> LINDY Squires Jul 21, 2003 10:42 AM LMOM to call [facility]. rx at [facility] in Dr. Lozano's metal basket on corner of counter. Lindy Armstrong RN >> BECCA LOZANO [facility] Jul 20, 2003 8:44 PM taper and d/c Wellbutrin (150 qd x 7 days, then d/c) start effexor XR 37.5 x 7 days then 75 can overlap eff 37.5 with well 150 x 7 days see medications = samples + Rx printed at [facility] >> GILBERT NICE [facility] Jul 20, 2003 9:46 AM >> CALL RECEIVED. Contact: #[phone] Was previously on zoloft and was switched to Wellbutrin on mo ago. Pt cannot tolerate. Experiencin g extreme lightheadedness. Thought was d/t coming off zoloft but has been too long now. What to do ? Was switched because had been on zoloft for years. Gilbert Nice RN documented in this encounter Plan of Treatment Not on filedocumented as of this encounter Visit Diagnoses Diagnosis Depressive disorder, not elsewhere class ified - Primary documented in this encounter Care Teams Operating Room Assistant Relationship Specialty Start Date End Date Nando Grajeda MD PCP - General 06/08/03 01/27/13 [facility] [address] [place] [address] [address] [place] [address] documented as of this encounter
--- OUTSIDE RECORDS SUMMARY | 2022-01-30 11:41 | XMS_ITS | Encounter Summary ---
:1960 Author Organization [facility] Address [address] [place] [address] Care Team Providers Name Role Phone Nando Grajeda MD Primary Care Provider [phone] Reason for Visit Reason Onset Date Comments Medication Problem 05/15/2004 Karin 180mg not co kermit Encounter Details Date Type Department Care Team Description [facility] MD Medication Problem [place] NO INFO FOUND (Karin 180mg not [address] [facility] XXX covered) [place], [place] XXX [address] [place], [place] [id number] Social History Tobacco Use Types Packs/Day Years [...] 08/12/2021 relatives? How often do you attend taoist or synagogue Never 08/12/2021 services? Do you belong to any clubs or organizations such as Yes 08/12/2021 taoist groups, unions, fraternal or athletic groups, or [...] this encounter Miscellaneous Notes Telephone Encounter - 05/15/2004 11:19 AM RADIO DISPATCHER >> LINDY ARRINGTON kit Jun 04, 2004 10:01 AM Pt states the allergies were brought on by a litter of puppies. She otherwise does not have a hx wit h allergies. She has tried Claritin and it was not strong enough. She does not need anything at this time. Will try other OTC allergy meds if she needs and then will let us know if we should do a PA . Lindy Arrington RN >> LINDY Núñez Jun 04, 2004 9:15 AM LMOM at work # to call [facility]. Lindy Arrington RN >> ZELDA KENT [facility] May 30, 2004 1:56 PM Left message on home answering machine for patient to call back. Zelda Kent RN >> SARA GRAF [facility] May 23, 2004 6:25 PM LMTCB at work number to [facility] desk. Home number busy. Sara Grfa RN >> ADRIANA Salguero May 15, 2004 11:21 AM [phone], they need to know what meds pt. has failed - no previous claim history for Karin. Call above # to pursue phone PA once we have history from pt. LMOM(wor k#)TCB. Adriana Rg RN documented in this encounter Plan of Treatment Not on filedocumented as of this encounter Visit Diagnoses Not on filedocumented in this encounter Care Teams Machine Ii Coremaker Relationship Specialty Start Date End Date Nando Grajeda MD PCP - General 06/08/03 01/27/[address] [place] [address] documented as of this encounter
--- OUTSIDE RECORDS SUMMARY | 2022-01-30 11:41 | XMS_ITS | Encounter Summary ---
:1960 Author Organization [facility] Address [address] [place] [address] Care Team Providers Name Role Phone Nando Grajeda MD Primary Care Provider [phone] Reason for Visit Reason Comments Recheck Medication Effexor Encounter Details Date Type Department Care Team Description 02/26/2004 Office Visit [facility] Charlotte Lozano M D DEPRESSIVE DISORDER NEC (Primary Dx); Clinic [place] XXX NO INFO HYPERTENSION NOS ; [address] [facility] FOUND XXX TOBACCO USE DISORDER ; [place], [place] XXX Bronchospasm with [place] [phone] [place], [place] [id number] Social History Tobacco Use Types Packs/Day Years [...] How often do you attend taoism or druze Never 08/12/2021 services? Do you [...] Sign Reading Time Taken Comments Blood Pressure 140/92 02/26/2004 4:36 PM [employer] [employer] Pulse - - Temperature - - Respiratory Rate - - Oxygen Saturation - - Inhaled Oxygen Concentration - - Weight 97.1 kg (214 lb) 02/26/2004 4:36 PM [employer] Height - - Body Mass Index - - documented in this encounter Progress Notes 02/26/2004 4:30 PM [employer] SUBJECTIVE: Robbie Miller is a 44 year old female here to discuss: started effexor and triam/hctz at the same time, palpitations, d/c's diuretc and resolved. was on eff 37.5 bid, now on 75 daily; takes it for concentration, doesn't really feel depressed. sick for a few weeks, coarse wheezy sounds in mid-chest, productive cough, thick mucus. smokes 1/2-3/4 ppd. has rarely tried an inhaler. ROS: CONSTITUTIONAL:NEGATIVE for fever, chills, change in weight INTEGUMENTARY/SKIN: NEGATIVE for worrisome rashes, moles or lesions EYES: NEGATIVE for vision changes or irritation ENT/MOUTH: as above RESP: as above BREAST: NEGATIVE for masses, tenderness or discharge CV: + palpitations as above GI: NEGATIVE for nausea, abdominal pain, heartburn, or change in bowel habits :NEGATIVE for frequency, dysuria, or hematuria MUSCULOSKELETAL:NEGATIVE for significant arthralgias or myalgia NEURO: NEGATIVE for weakness, dizziness or paresthesias ENDOCRINE: NEGATIVE for temperature intolerance, skin/hair changes HEME/ALLERGY/IMMUNE: NEGATIVE for bleeding problems PSYCHIATRIC: depression/anxiety EXAM: BP 140/92 Wt 214 lbs (97.1kg) GENERAL APPEARANCE: alert and no acute distress EYES: Eyes grossly normal to inspection, PERRL, non-icteric, EOMI HEENT: ear canals and TM's normal and nose and mouth without ulcers or lesions NECK: no adenopathy, no asymmetry, masses, or scars and thyroid normal to palpation RESP: wheezes I&E, no rales or rhonchi CV: regular rates and rhythm, normal S1 S2, no S3 or S4 and no murmur, click or rub - SKIN: no suspicious lesions or rashes NEURO: Normal strength and tone, sensory exam grossly normal, mentation intact and speech normal PSYCH: mentation appears normal and affect normal ASSESSMENT/PLAN: 311 DEPRESSIVE DISORDER NEC (primary encounter diagnosis) Note: doesn't think palpitations were from Effexor, surprisingly have resolved going off the diuretic Plan: EFFEXOR XR 150 MG OR CP24 401.9 HYPERTENSION NOS Note: d/c triam/HCTZ and avoid B-blockers Plan: VERAPAMIL HCL 80 MG OR TABS trial, re-ck in 4-6 wks 305.1 TOBACCO USE DISORDER Note: encourage and support smoking cessation Plan: hopefully, the Effexor will help 519.1 Bronchospasm with URI Note: smoker, question bronchitis as well Plan: ADVAIR DISKUS 500-50 MCG/DOSE IN MISC, AVELOX 400 MG OR TABS documented in this encounter Nursing Notes 02/26/2004 4:30 PM CST >> FARAZ HAWKINS 02/26/04 4:37 pm Robbie Sami Miller presents for medication follow up with concerns about blood pressure. Pt statesstopped taking BP meds due to feeling sick and never started new meds. Initial BP 140/92 Wt 214 lbs (97.1kg). BP completed using cuff size: large. RAHEEM Nava documented in this encounter Plan of Treatment Not on filedocumented as of this encounter Visit Diagnoses Diagnosis Depressive disorder, not elsewhere class ified - Primary HYPERTENSION NOS Unspecified essential hypertension TOBACCO USE DISORDER Tobacco use disorder Bronchospasm with URI Other diseases of trachea and bronchus, not elsewhere classified documented in this encounter Care Teams B2B Managed Service Sales Exec Relationship Specialty Start Date End Date Nando Grajeda MD PCP - General 06/08/03 01/27/13 [facility] [place] Herrera [facility] [address] [place] [address] documented as of this encounter
--- OUTSIDE RECORDS SUMMARY | 2022-01-30 11:41 | XMS_ITS | Encounter Summary ---
:1960 Author Organization [facility] Address [address] [place] [address]. [place] [address] Care Team Providers Name Role Phone Nando Grajeda MD Primary Care Provider [phone] Reason for Visit Reason Onset Date Comments Refill Request 11/20/2004 Lexapro 20mg Encounter Details Date Type Department Care Team Description 11/20/2004 Refill [facility] Rohan Mora Refill Request (Lexapro [facility] [place] MD Mario 20mg) [address] [place] [phone] (Wo rk) Social History Tobacco Use Types [...] How often do you attend rastafari or denominational Never 08/12/2021 services? Do you [...] for the very basics like Not h silck at all 08/12/2021 food, housing, medical care, [...] this encounter Miscellaneous Notes Telephone Encounter - Marainne Mclean - 11/20/2004 1:14 PM CDT Last OV: 10/07/04 Reason: wrist injury Provider: Last filled: 10/18/04 Prior to that visit, pt saw 05/13/04 for med check and was advised to RTC in 3 months. Marianne Mclean RN documented in this encounter Plan of Treatment Not on filedocumented as of this encounter Visit Diagnoses Diagnosis DEPRESSIVE DISORDER NEC - Primary Depressive disorder, not elsewhere class ified documented in this encounter Care Teams Secondary Set Up Man Relationship Specialty Start Date End Date Nando Grajeda MD PCP - General 06/08/03 01/27/13 [facility] [address] [place] [address] [address] [place] [address] documented as of this encounter
--- OUTSIDE RECORDS SUMMARY | 2022-01-30 11:41 | XMS_ITS | Encounter Summary ---
:1960 Author Organization [facility] [place] Address [address] [place] [address] Care Team Providers Name Role Phone Unavailable Primary Care Provider Unavailable Encounter Details Date Type Department Care Team Description 11/08/2002 Abstract [facility] Melody Najera [address] [phone] Social History Tobacco Use Types Packs/Day Years [...] How often do you attend sabianism or jain Never 08/12/2021 services? Do you [...]
--- OUTSIDE RECORDS SUMMARY | 2022-01-30 11:41 | XMS_ITS | Encounter Summary ---
:1960 Author Organization [place] Address [address] [place] [address]. [place] [address] Care Team Providers Name Role Phone Nando Grajeda MD Primary Care Provider [phone] Reason for Referral - Closed Specialty Diagnoses / Procedures Referred By Contact Refer red To Contact Diagnoses Benign neoplasm of skin of other and unspecified parts of face Charlotte Lozano MD [place] [address] Referral ID Status Reason Start Date Expiration Date Visits Requ ested Visits Authorized [id number] Closed 06/15/2003 04/26/2011 1 1 [address] MONKEY Reason for Visit Reason Comments Depression Hypertension Encounter Details Date Type Department Care Team Description 06/15/2003 Office Visit [facility] Charlotte Lozano M D DEPRESSIVE DISORDER NEC; [facility] [place] NO INFO TOBACCO USE DISORDER; [address] [facility] FOUND XXX HYPERTENSION NOS; [place], [place] [address] SKIN FACE NEC; [address] [place] [address] OBESITY NOS [phone] Social History Tobacco Use Types Packs/Day Years [...] How often do you attend restoration or denominational Never 08/12/2021 services? Do you [...] Reading Time Taken Comments Blood Pressure 130/86 06/15/2003 6:00 PM GREASE MONKEY Pulse - - Temperature - - Respiratory Rate - - Oxygen Saturation - - Inhaled Oxygen Concentration - - Weight - - Height - - Body Mass Index - - documented in this encounter Progress Notes 06/15/2003 6:00 PM GREASE MONKEY SUBJECTIVE: lack of concentration, jumps from one thing to the next, refill Zoloft, has been on so l wilman, has been on it with wellbutrin briefly before; would also like to quit smoking BP check, up to 150/95, consistently high for several yrs, per pt. would like to lose weight also mole on nose OB JECTIVE: BP 130/86 pleasant, cooperative, NAD no wt noted today r/o BCCA on nose ASSESSMENT/PLAN: 311 DEPRESSIVE DISORDER NEC Note: ?ADD co-morbid Plan: ZOLOFT 100 MG OR TABS, WELLBUTRIN SR 150 MG OR TBCR 305.1 TOBACCO USE DISORDER Note: wants to quit smoking again Plan: WELLBUTRIN S R 150 MG OR TBCR, Rx may incr BP, will monitor and adjust accordingly 401.9 HYPERTENSION NOS N ote: not prev Rx'd Plan: MAXZIDE-25 25-37.5 MG OR TABS [address] SKIN FACE NEC [216.3] [facility] DERMATOLOGY [9050.007] Order #: [id number] Class: External referral OBESITY NOS [278.00] documented in this encounter Nursing Notes 06/15/2003 6:00 PM CST >> ABIMAEL ELLIS 06/15/2003 6:20 pm 43 yo female here today for a med check on her zoloft. Also needing a bp check, and referral to dermatology for a mole on her nose, also would like info on smoking cessation. Robe Ellis RN documented in this encounter Plan of Treatment Not on filedocumented as of this encounter Visit Diagnoses Diagnosis Depressive disorder, not elsewhere class ified Tobacco use disorder Unspecified essential hypertension Benign neoplasm of skin of other and uns pecified parts of face Obesity, unspecified documented in this encounter Care Teams Access Control Specialist Relationship Specialty Start Date End Date Nando Grajeda MD PCP - General 06/08/03 01/27/13 [facility] [place] [address] [facility] [address] [place] [address] documented as of this encounter
--- OUTSIDE RECORDS SUMMARY | 2022-01-30 11:41 | XMS_ITS | Encounter Summary ---
:1960 Author Organization [facility] Address [address] [place] [address] Care Team Providers Name Role Phone Nando Grajeda MD Primary Care Provider [phone] Reason for Visit Reason Comments Patient Inquiry palpitations Encounter Details Date Type Department Care Team Description [facility] [place] NO INFO FOUND (palpitations) [address] [facility] [place] [address] [place], [place] [id number] Social History Tobacco Use Types Packs/Day Years [...] How often do you attend yarsani or confucianist Never 08/12/2021 services? Do you belong to [...] this encounter Miscellaneous Notes Telephone Encounter - 06/20/2003 11:59 PM ASSOCIATE THEATRE PROFESSOR >> BECCA GERMAN [facility] Jun 22, 2003 8:44 PM agree >> GEOFFREY MÉNDEZ [facility] Jun 22, 2003 1:36 PM Left message on answering machine for patient to call back. Geoffrey Méndez LPN >> ZELDA Núñez Jun 20, 2003 3:59 PM Per M Dahl can give it 2 more weeks for meds to stabalize/adjust or if Pt desires can come in for appt on , Left message on answering machine for patient to call back. Zelda Kent RN >> ZELDA Núñez Jun 20, 2003 3:51 PM >> CALL RECEIVED. Contact: after 4:30 home [phone] Pt has changed form zoloft to wellbutrin and one BP pill. Starting Thursday has had chest palpitations /fluttering. Pt states hard to concentrate. Denies SOB, no chest pain or pressure, no nausea or swea ting. Has been dizzy/light-headed for the last 2 days also (like when she was out of zoloft). Please advise, Zelda Kent RN documented in this encounter Plan of Treatment Not on filedocumented as of this encounter Visit Diagnoses Not on filedocumented in this encounter Care Teams Oracle R12 Developer Relationship Specialty Start Date End Date Nando Grajeda MD PCP - General 06/08/03 01/27/13 [facility] [address] [facility] [address] [place] [address] documented as of this encounter
--- OUTSIDE RECORDS SUMMARY | 2022-01-30 11:41 | XMS_ITS | Encounter Summary ---
:1960 Author Organization [facility] Address [address] [place] [address] Care Team Providers Name Role Phone Nando Grajeda MD Primary Care Provider [phone] Reason for Referral - Closed Specialty Diagnoses / Procedures Referred By Contact Refer red To Contact Diagnoses Other and unspecified ovarian cyst Charlotte Lozano MD [place] [address] Referral ID Status Reason Start Date Expiration Date Visits Requ ested Visits Authorized [id number] Closed 05/13/2004 04/26/2011 1 1 NESS SOLUTIONS DIRECTOR Reason for Visit Reason Comments Pain ovarian Encounter Details Date Type Department Care Team Description 05/13/2004 Office Visit [facility] Charlotte Lozano M D OVARIAN CYST NEC/NOS [620.2] [620.2] [62 0.2] (Primary Dx); Clinic [place] NO INFO FOUND DERMATITIS NOS [692.9] [692. 9]; [address] [facility] XXX CHR ALLRG CONJUNCTIV NEC [372.14]; [place], [place] XXX DEPRESSIVE DISORDER [place] [id number] [place] [address] Social History Tobacco Use Types Packs/Day Years [...] How often do you attend pentecostalism or congregation Never 08/12/2021 services? Do you [...] Sign Reading Time Taken Comments Blood Pressure 122/84 05/13/2004 10:58 AM BUSINESS SOLUTIONS DIRECTOR Pulse 72 05/13/2004 10:58 AM BUSINESS SOLUTIONS DIRECTOR Temperature - - Respiratory Rate 18 05/13/2004 10:58 AM BUSINESS SOLUTIONS DIRECTOR Oxygen Saturation - - Inhaled Oxygen Concentration - - Weight 96.6 kg (213 lb) 05/13/2004 10:58 AM BUSINESS SOLUTIONS DIRECTOR Height 167.6 cm (5' 6) 05/13/2004 10:58 AM BUSINESS SOLUTIONS DIRECTOR Body Mass Index 34.38 05/13/2004 10:58 AM BUSINESS SOLUTIONS DIRECTOR documented in this encounter Progress Notes 05/13/2004 10:30 AM BUSINESS SOLUTIONS DIRECTOR SUBJECTIVE: Robbie Miller is a 44 year old female here to discuss results of recent tests suggesting shehas or had a ruptured ovarian cyst. Also med ck/refills. ROS: Review Of Systems Skin: eczema Eyes: allergic conjunctivitis Ears/Nose/Throat: allergies Respiratory: negative Cardiovascular: negative Gastrointestinal: negative Genitourinary: as above Musculoskeletal: negative Neurologic: negative Psychiatric: depression Hematologic/Lymphatic/Immunologic: negative Endocrine: negative EXAM: BP 122/84 Pulse 72 Resp 18 Ht 5' 6 (1.68m) Wt 213 lbs (96.6kg) LMP Hysterectomy GENERAL APPEARANCE: healthy, alert and no distress EYES: Eyes grossly normal to inspection, [...] and no murmur, click or rub - ABDOMEN: soft, nontender, without hepatosplenomegaly or masses and bowel sounds normal MS: extremities normal- no gross deformities noted SKIN: no suspicious lesions or rashes NEURO: Normal strength and tone, sensory exam grossly normal, mentation intact and speech normal PSYCH: mentation appears normal. and affect normal/bright. ASSESSMENT/PLAN: 620.2 OVARIAN CYST NEC/NOS [620.2] [620.2] [620.2] (primary encounter diagnosis) Note: ongoing discomfort Plan: CONSULT MAIL SORTING SUPERVISOR 2nd opinion 692.9 DERMATITIS NOS [692.9] Note: eczema Plan: ELIDEL 1 % EX CREA 372.14 CHR ALLRG CONJUNCTIV NEC [372.14] Note: Plan: URBANO 180 MG OR TABS 311 DEPRESSIVE DISORDER NEC Note: incr from 10-20 mg daily Plan: LEXAPRO 20 MG OR TABS Rx updated re-ck in 3 months, sooner prn documented in this encounter Nursing Notes 05/13/2004 10:30 AM CST >> TRELL HOYT 05/13/04 11:02 am Robbie A Angela presents for discussion of recent ovarian pain. She had a pelvic CT and u/s last week. Initial BP 122/84 Pulse 72 Resp 18 Ht 5' 6 (1.68m) Wt 213 lbs (96.6kg) LMP Hysterectomy. BP completed using cuff size: large. Jagruti Hoyt RN documented in this encounter Plan of Treatment Not on filedocumented as of this encounter Visit Diagnoses Diagnosis OVARIAN CYST NEC/NOS [620.2] [620.2] [62 0.2] - Primary Other and unspecified ovarian cyst DERMATITIS NOS [692.9] [692.9] Contact dermatitis and other eczema, due to unspecified cause CHR ALLRG CONJUNCTIV NEC [372.14] Other chronic allergic conjunctivitis DEPRESSIVE DISORDER NEC Depressive disorder, not elsewhere class ified documented in this encounter Care Teams Paper Supervisor Relationship Specialty Start Date End Date Nando Grajeda MD PCP - General 06/08/03 01/27/13 [facility] [address] [place] [address] documented as of this encounter
--- OUTSIDE RECORDS SUMMARY | 2022-01-30 11:41 | XMS_ITS | Encounter Summary ---
:1960 Author Organization [facility] Address [address] [place] [address]. [place] [address] Care Team Providers Name Role Phone Unavailable Primary Care Provider Unavailable Reason for Visit Reason Comments Refill Request Encounter Details Date Type Department Care Team Description 04/26/2003 Refill [facility] Rohan Mora, Refill Request [facility] [id number] [place] [phone] [place] [address] (Wo rk) Social History Tobacco Use Types [...] How often do you attend catholic or yarsani Never 08/12/2021 services? Do you [...] this encounter Miscellaneous Notes Telephone Encounter - 04/26/2003 11:59 PM COMPUTER ENGINEERING TECHNOLOGIST >> FARAZ HAWKINS ThuApr 26, 2003 9:37 AM >> CALL RECEIVED. Contact: Duplicate request for zoloft. TRobinson,FINANCIAL REPRESENTATIVE documented in this encounter Plan of Treatment Not on filedocumented as of this encounter Visit Diagnoses Not on filedocumented in this encounter
--- OUTSIDE RECORDS SUMMARY | 2022-01-30 11:41 | XMS_ITS | Encounter Summary ---
:1960 Author Organization [facility] Address [address] [place] [address]. [place] [address] Care Team Providers Name Role Phone Nando Grajeda MD Primary Care Provider [phone] Reason for Visit Reason Onset Date Comments Refill Request 02/22/2004 effexor XR Encounter Details Date Type Department Care Team Description 02/22/2004 Refill [facility] Nando Grajeda Refill Request (effexor [place] MD Vivek XR) [address] [place], [place] [address] [place] [phone] [address] [place], [place] [address] (Wo rk) Social History [...] How often do you attend jewish or sikhism Never 08/12/2021 services? Do you [...] this encounter Miscellaneous Notes Telephone Encounter - 02/22/2004 9:54 AM CDT >> ZELDA KENT ThuFeb 23, 2004 2:18 PM Pt informed of message below. Zelda Kent RN >> ABIMAEL ELLIS ThuFeb 23, 2004 10:52 AM Left message for pt to call back to gold. Left samples at the vest front presser. Robe Ellis RN >> TRELL HOYT [facility] Feb 22, 2004 10:00 AM Pt is out of effexor and has an appt with Thu afternoon. She was given samples recently but not e nough to get her until her appt. She normally takes effexor XR 75mg QD(she was given effexor 75mg la week but that's not what she normally takes). Pt is requesting samples to get her until Thu. Jagruti Hoyt RN documented in this encounter Plan of Treatment Not on filedocumented as of this encounter Visit Diagnoses Not on filedocumented in this encounter Care Teams Radio Script Writer Relationship Specialty Start Date End Date Nando Grajeda MD PCP - General 06/08/03 01/27/13 [facility] [place] [address] [facility] [address] [place] [address] documented as of this encounter
--- OUTSIDE RECORDS SUMMARY | 2022-01-30 11:41 | XMS_ITS | Encounter Summary ---
:1960 Author Organization [facility] Address [address] [place] [address]. [place] [address] Care Team Providers Name Role Phone Nando Grajeda MD Primary Care Provider [phone] Encounter Details Date Type Department Care Team Description 05/07/[address] [facility] [place] [address] [place] [address] (Wo rk) Social History Tobacco [...] How often do you attend caodaism or church Never 08/12/2021 services? Do you [...] Name Priority Date/Time Associated Diagnosis Comme nts HC CT ABDOMEN W Routine 05/07/2004 6:05 PM Result s for this CONTRAST DAYCARE MANAGER procedure are i n the results section. documented in this encounter Results CT SCAN OF ABDOMEN CONTRAST (05/07/2004 6:05 PM DAYCARE MANAGER) Specimen (Source) Anatomical Collection Method Collection Time Re ceived Time Location / / Volume Laterality 05/07/2004 6:05 PM DAYCARE MANAGER Impressions Pacs, Data Conversion - 05/08/2004 11:[address] ABDOMEN AND PELVIS WITH CONTRAST ? 05/07/2004 CLINICAL HISTORY: ??Right lower quadrant pain. ??Rule out appendicitis. TECHNIQUE: ??With intravenous and oral c ontrast through the abdomen and pelvis. FINDINGS: ??The upper abdominal organs a re normal. ??Bowel and mesentery including the appendix are nor mal. There is a 4.5cm cystic structure in the right adnexa region best seen on image #75. ??Adjacent small clus tered cysts. ??This is most compatible with a right ovarian cyst, po ssibly hemorrhagic. ??One of the adjacent cystic structures is irregu larly marginated and has a slightly enhancing rim suggesting partia l rupture of a small cyst. ?? There is a small amount of free fluid in the pelvis. ??Uterus is absent. ??Otherwise unremarkable. ??Not mentioned above, mild diffuse fatty infiltration of the liver. IMPRESSION: 1. ?No evidence for appendicit is. 2. ?Right ovarian cyst. ??Juan mmend follow-up ultrasound after 2-3 months. ?? This agrees with the preliminary report by Dr. Nicki Hill. Rohan Mora MD SPECIAL IMAGING STUDIES documented in this encounter Visit Diagnoses Not on filedocumented in this encounter Care Teams Bottom Saw Operator Relationship Specialty Start Date End Date Nando Grajeda MD PCP - General 06/08/03 01/27/13 [facility] [place] [address] [place] [address] documented as of this encounter
--- OUTSIDE RECORDS SUMMARY | 2022-01-30 11:41 | XMS_ITS | Encounter Summary ---
:1960 Author Organization [facility] Address [address] [place] [address] Care Team Providers Name Role Phone Nando Grajeda MD Primary Care Provider [phone] Reason for Visit Reason Comments Refill Request Effexor XR 37.5mg Encounter Details Date Type Department Care Team Description 09/12/2003 Refill [facility] Kin Lozano MD Refill Request (Effexor [place] NO INFO FOUND XR 37.5mg ) [address] [facility] [place] [address] [place], [place] [id number] Social History Tobacco Use Types Packs/Day Years [...] How often do you attend buddhism or jain Never 08/12/2021 services? Do you [...] this encounter Miscellaneous Notes Telephone Encounter - 09/12/2003 11:59 PM CDT >> DAVID Núñez September 12, 2003 2:48 PM >> CALL RECEIVED. Contact: Last OV 06/15/03. documented in this encounter Plan of Treatment Not on filedocumented as of this encounter Visit Diagnoses Diagnosis Depressive disorder, not elsewhere class ified - Primary documented in this encounter Care Teams Tattoo Artist Relationship Specialty Start Date End Date Nando Grajeda MD PCP - General 06/08/03 01/27/13 [facility] [address] [place] [address] [address] [place] [address] documented as of this encounter
--- OUTSIDE RECORDS SUMMARY | 2022-01-30 11:41 | XMS_ITS | Encounter Summary ---
:1960 Author Organization [facility] Address [address] [place] [address] Care Team Providers Name Role Phone Nando Grajeda MD Primary Care Provider [phone] Encounter Details Date Type Department Care Team Description 05/07/2004 Emergency room Johnnie Armenta MD EMERGENCY PHYSIC [facility] [address] [place], [place] [address] (Wo rk) Social History Tobacco Use Types [...] How often do you attend episcopalian or lutheran Never 08/12/2021 services? Do you belong to [...] PM CDT documented as of this encounter ED Notes Johnnie Armenta - 05/08/2004 12:00 AM ANESTHETIST : 1960 CHIEF COMPLAINT: I got sent over to see if I have appendicitis. HISTORY OF PRESENT ILLNESS: This 44-year-old woman comes in complaining of some right lower quadrant pain that started actually the day before her visit. She said this was a slight pain that would get worse with any kind of activity. She ate and then had a little bit of nausea. She took some Vicodin and thought this was maybe a little bit better, and she thought that maybe she was coming down with the flu. The pain worsened if she walks or if she presses on it. Any kind of muscle action really makes it worse. She has been passing gas normally. She has had no urinary changes. She has a history of hysterectomy but they left both of her ovaries. She had some complications with bowel obstruction after this. She says this pain is not as bad that, although it feels somewhat similar. She has not had any vomiting. She was seen in the clinic and sent over for an outpatient CT scan. However, she says the pain has become worse, and she wants to be seen in the emergency department as well. She has not had any cough or sore throat. No trauma. She says everything else has been going well. The patient says that she feels bloated. She took an enema this morning and had a bowel movement without any relief. She has not had any fevers, night sweats, or chills. No significant sick exposures or travel. MEDICATIONS: Lexapro, lisinopril, gas medicine in triage. ALLERGIES: NONE. PAST MEDICAL HISTORY: Remarkable for depression, hysterectomy, small bowel obstruction, and hypertension. FAMILY HISTORY: Noncontributory. SOCIAL HISTORY: Stable. She does smoke and drink alcohol. She denies any drug use. She works for [employer]. She has a stable social situation. REVIEW OF SYSTEMS: As discussed above for pertinent things. She denies any visual changes or oral sores. No neck, respirations, cardiac, gastrointestinal, genitourinary, or POULTRY HATCHERY MANAGER complaints. No musculoskeletal or skin complaints. No immunologic, hematologic, or endocrinologic problems. All other systems are negative. PHYSICAL EXAM: Blood pressure 132/90, pulse 102, respirations 18, temperature 99.7, and sats 98%. She is alert and oriented. She is in a mild amount of distress when I see her. Pupils are equal and reactive to light. Extraocular movements are full and intact. NOSE, MOUTH, and OROPHARYNX are without any oral sores or abnormalities. NECK is without meningeal signs. CHEST rise is equal and nontender. LUNG sounds are clear to auscultation bilaterally. HEART sounds are normal S1 and S2 with no murmurs, rubs, or gallops. Pulses are symmetric and strong. ABDOMEN is soft, nontender, and nondistended. Bowel sounds are present. There are no masses or organomegaly, except in the right lower quadrant where she has a little bit of tenderness, both in the area of McBurney's point but also in trying to differentiate between this area and the PELVIS, she has quite a bit of tenderness in the PELVIC region. BACK is without any CVA tenderness or abnormalities. /RECTAL, done after CT scan with a scrap metal collector present, and reveals a tender right adnexa with no obvious mass that I can appreciate, but she is so uncomfortable that it hard to examine this area completely. It appears that the cervix has also been removed. I do not see any other obvious abnormalities here. RECTAL exam is not performed. EXTREMITIES times four are without any obvious deformity. NEUROLOGIC is nonfocal. PSYCH is deferred. LYMPHS are unremarkable. The rest of the physical exam is unremarkable. There is nothing to suggest zoster. No CVA tenderness. EMERGENCY DEPARTMENT DIAGNOSTIC DATA: She had a normal comprehensive metabolic panel and lipase. White count is 11.8, but otherwise a normal CBC and differential. Urinalysis is normal. Urine test is ordered before her status is known as having had a hysterectomy, and so this was cancelled. EMERGENCY DEPARTMENT COURSE AND MEDICAL DECISION MAKING: This is a 44-year-old woman who presents with this right lower quadrant pain. The differential would be appendicitis, and this appears to be her main concern at this point. Other things that are considered include kidney stone, ovarian process, other intestinal process including some kind of acute infection. There does not appear to be any element of trauma and no referred musculoskeletal problems. It does not appear to be referred pulmonary or oropharyngeal process either. The pain she describes is a stabbing pain that is a 7-8/10 maximally. What we will do is control her pain with I.V. pain medications initially. We will give her I.V. fluids and Zofran. CT scan is obtained and shows more of an adnexal/ovarian cyst than appendicitis. Given the complex nature of it and the core that I see on the CT scan, I ordered an ultrasound that shows just a complex right adnexal cyst consistent with an ovarian process, probably hemorrhagic. The patient's pain is managed with the medications. I have reviewed the results with her and her friend. I told her that she needs to get rechecked if she is not getting better and forsure follow up even if she is feeling better to make sure that there are no other problems. We talked about these suddenly bleeding, that with the cyst you can have pain like this, and checked that she had a normal hemoglobin. I think it would be safe to manage her at home. I did speak with Dr. Beasley who received a sign out from Dr. Mora regarding the CT scan, and they are aware of these findings. We will just have the patient be discharged to home and return with any problems. The other thing considered with her, but seemed deemed unlikely given the continued passing of flatus and bowel movement, is that this was a recurrent bowel obstruction, but I do not see any evidence on the CT scan that would suggest a partial obstruction either. EMERGENCY DEPARTMENT DISPOSITION: The patient is discharged to home. She is to return with any problems, increased pain, shortness of breath, fever, or vomiting. She is to follow up with her primary medical doctor in two to four days for a recheck if not much better, otherwise she can follow up in seven to ten days. Francisco, Vitaliy, and Dwayne as directed. EMERGENCY DEPARTMENT FINAL IMPRESSIONS: 1) Right adnexal cyst. 2) Abdominal pain. [id number]_ JOHNNIE ARMENTA MD MT: Document: [id number] [place], [place] Name: MR#: HOANG HARRY -[id number] EMERGENCY ROOM ENCOUNTER Page 3 of 3 LCN: DIAZ DSC: 05/07/2004 [place], [place] Name: MR#: HOANG HARRY -[id number] : Admit Date: Account #: 1960 05/07/2004 [id number] Doctor: JOHNNIE ARMENTA MD EMERGENCY ROOM ENCOUNTER Page 1 of 3 documented in this encounter Plan of Treatment Not on filedocumented as of this encounter Visit Diagnoses Not on filedocumented in this encounter Care Teams Pneumatic Tube Repairer Relationship Specialty Start Date End Date Nando Grajeda MD PCP - General 06/08/03 01/27/13 [facility] [address] [facility] [address] [place] [address] documented as of this encounter
--- OUTSIDE RECORDS SUMMARY | 2022-01-30 11:41 | XMS_ITS | Encounter Summary ---
:1960 Author Organization [facility] Address [address] [place] [address] Care Team Providers Name Role Phone Nando Grajeda MD Primary Care Provider [phone] Reason for Visit Reason Onset Date Comments Refill Request 01/09/2004 effexor xr 75 Encounter Details Date Type Department Care Team Description 01/09/2004 Refill [facility] Kin Lozano MD Refill Request (effexor [place] XXX NO INFO FOUND xr 75) [address] [facility] [place] [address] [place] [address] Social History Tobacco Use Types [...] How often do you attend druze or sabianist Never 08/12/2021 services? Do you [...] this encounter Miscellaneous Notes Telephone Encounter - 01/09/2004 1:25 PM CDT >> HANNAH Núñez Jan 09, 2004 1:32 PM last OV 06/15/03-last filled 11/27/03-filled x 1 with instructions to sched appt with [facility] Approved JESSICA/Hannah Nagel RN documented in this encounter Plan of Treatment Not on filedocumented as of this encounter Visit Diagnoses Diagnosis Depressive disorder, not elsewhere class ified documented in this encounter Care Teams Mesh Cutter Relationship Specialty Start Date End Date Nando Grajeda MD PCP - General 06/08/03 01/27/[address] [place] [address] documented as of this encounter
--- OUTSIDE RECORDS SUMMARY | 2022-01-30 11:41 | XMS_ITS | Encounter Summary ---
:1960 Author Organization [facility] Address [address] [place] [address] Care Team Providers Name Role Phone Nando Grajeda MD Primary Care Provider [phone] Reason for Visit Reason Comments Cough x 1 week Encounter Details Date Type Department Care Team Description 07/24/2004 Office Visit [facility] ACU TE PHARYNGITIS (Primary Dx); [place] [facility] [address] [place] [address] Social History Tobacco Use Types [...] How often do you attend christianity or evangelical Never 08/12/2021 services? Do you belong to [...] Sign Reading Time Taken Comments Blood Pressure 94/72 07/24/2004 1:00 PM CANDY SUPERVISOR Pulse - - Temperature 39 ??C (102.2 ??F) 07/24/2004 1:00 PM CANDY SUPERVISOR Respiratory Rate - - Oxygen Saturation - - Inhaled Oxygen Concentration - - Weight - - Height - - Body Mass Index - - documented in this encounter Progress Notes Brad Scott - 07/24/2004 1:49 PM CST SUBJECTIVE: Robbie is a 44 year old female presenting with aching, chest congestion, cough productive mucoid and yellow, fatigue, fever and sore throat. Onset of symptoms was 7 days ago. Course of illness is worsening. Treatment measures tried include fluids, OTC meds and rest. Predisposing factors include tobacco abuse. Previous Medical History: DEPRESSIVE DISORDER NEC Active Medications as of 07/24/2004: LISINOPRIL 10 MG OR TABS, 1 tab PO QD (Once per day), Disp: 30, Rfl: 5 ELIDEL 1 % EX CREA, apply twice daily , Disp: 30 gm, Rfl: prn LEXAPRO 20 MG OR TABS, 1 TABLET DAILY, Disp: 30, Rfl: 5 ZITHROMAX Z-LILA 250 MG OR CAPS, 2 tablets day 1, 1 tablet days 2-5, Disp: 6, Rfl: 0 ROBITUSSIN A-C 10-100 MG/5ML OR SYRP, 2 TSPS PO Q4-6 HR PRN COUGH, Disp: 4 OZ, Rfl: 0 OBJECTIVE: General appearance: alert and mild distress Skin color is pink Hydration status appears adequate with normal skin turgor and moist mucous membranes.RR 20 and unlabored. HEENT: Conjunctiva are not injected without discharge. Left TM is normal: no effusions, no erythema, and normal landmarks. Right TM is normal: no effusions, no erythema, and normal landmarks. Nasal mucosa is discharge yellow and inflamed. Oropharyngeal exam is erythematous. Neck is supple with no adenopathy CARDIAC:NORMAL - regular rate and rhythm without murmur. RESP: ABNORMAL - scattered anterior rhonchi WBC 7 Strep negative ASSESSMENT: Bronchitis and Sinusitis PLAN: OTC decongestant/antihistamine, Rx: ZITHROMAX Z-LILA 250 MG OR CAPS ROBITUSSIN A-C 10-100 MG/5ML OR SYRP and Smoking discouraged Follow up in 5 days if not improving. Brad Scott MD Y SUPERVISOR documented in this encounter Plan of Treatment Not on filedocumented as of this encounter Procedures Procedure Name Priority Date/Time Associated Diagnosis Comme nts HCL BETA STREP Routine 07/24/2004 1:29 PM Acute Pharyngitis Re sults for this CONFIRM CANDY SUPERVISOR procedure are i n the results section. HCL STREP GROUP A Routine 07/24/2004 1:29 PM Acute Phary ngitis Results for this AG (RAPID) CANDY SUPERVISOR Cough procedure are i n the results section. WBC & DIFF Routine 07/24/2004 1:20 PM Acute Pharyng itis Results for this CANDY SUPERVISOR Cough procedure are i n the results section. documented in this encounter Results BETA STREP CONFIRM (07/24/2004 1:29 PM CANDY SUPERVISOR) Component Value Ref Test Analysis Performed At [facility] gist Range Method Time Signature Specimen Throat [place] Description [facility] Culture Micro No Beta [place] Streptococcus [facility] Report status FINAL [id number] [facility] Specimen Anatomical Collection Method Collection Time Receive d Time (Source) Location / / Volume Laterality 07/24/2004 1:29 PM 5 1:39 CANDY SUPERVISOR PM CANDY SUPERVISOR Brad Scott MD LABORATORY Performing Organization Address City/[facility]/ZIP [facility] [place] [facility] [id number] [place] [id number] [facility] STREP GROUP A AG (RAPID) (07/24/2004 1:29 PM CANDY SUPERVISOR) Component Value Ref Test Analysis Performed At [facility] gist Range Method Time Signature Specimen Throat [facility] Rapid Strep A NEGATIVE: No Group A strepto coccal antigen detected by immunoassay, await [place] Screen culture report. [facility] Report status FINAL [id number] [facility] Specimen Anatomical Collection Method Collection Time Receive d Time (Source) Location / / Volume Laterality 07/24/2004 1:29 PM 200 5 1:39 CANDY SUPERVISOR PM CANDY SUPERVISOR Brad Scott MD LABORATORY Performing Organization Address City/[facility]/ZIP Code Phon e Number [facility] [id number] [place] [id number] [facility] (ABNORMAL) WBC & DIFF (07/24/2004 1:20 PM CANDY SUPERVISOR) [facility] gist Method Time Signature WBC 7.1 4.0 - [facility] 11.0 [facility] 10e9/L CLINIC LAB Diff Method Automated [place] Method [facility] % Lymphocytes 18 (L) 20 - 48 % [facility] % Monocytes 6 0 - 12 % [facility] % Granulocytes 76 (H) 40 - 75 % [facility] Absolute 1.3 0.8 - 5.3 [place] Lymphocytes 10e9/L [facility] Absolute 0.4 0.0 - 1.3 [place] Monocytes 10e9/L [facility] Absolute 5.4 1.6 - 8.3 [place] Granulocytes 10e9/L [facility] Specimen Anatomical Collection Method Collection Time Receive d Time (Source) Location / / Volume Laterality 07/24/2004 1:20 PM 5 1:25 CANDY SUPERVISOR PM CANDY SUPERVISOR Brad Scott MD LABORATORY Performing Organization Address City/State/ZIP Code Phon e Number [facility] [id number] [place] [address] [facility] documented in this encounter Visit Diagnoses Diagnosis Acute pharyngitis - Primary Cough documented in this encounter Care Teams Lozenge Maker Helper Relationship Specialty Start Date End Date Nando Grajeda MD PCP - General 06/08/03 01/27/[address] [place] [address] documented as of this encounter
--- OUTSIDE RECORDS SUMMARY | 2022-01-30 11:41 | XMS_ITS | Encounter Summary ---
:1960 Author Organization [facility] Address [address] [place] [address]. [place] [address] Care Team Providers Name Role Phone Nando Grajeda MD Primary Care Provider [phone] Reason for Visit Reason Comments Pelvic Pain nausea, difficulty walking Encounter Details Date Type Department Care Team Description 05/07/2004 Office Visit [facility] Rohan Mora ABDOMI NAL PAIN RLQ (Primary Dx); Clinic Vidalia MD Mario OVARIAN CYST NEC/NOS [address] [place] [phone] Social History Tobacco Use Types Packs/Day Years [...] How often do you attend bahai or adventism Never 08/12/2021 services? Do you [...] Sign Reading Time Taken Comments Blood Pressure 118/88 05/07/2004 2:14 PM BUNG DRIVER Pulse - - Temperature 37.7 ??C (99.8 ??F) 05/07/2004 2:14 PM BUNG DRIVER Respiratory Rate - - Oxygen Saturation - - Inhaled Oxygen Concentration - - Weight - - Height - - Body Mass Index - - documented in this encounter Progress Notes 05/07/2004 2:00 PM BUNG DRIVER SUBJECTIVE: CC: Robbie Miller is a 44 year old female who presents for vague lower abdominalpain focussed in the right lower quadrant HPI: has had abdominal hysterectomy for fibroids and for postop bowel obstruction:never told that appendix was taken. Has had prior ovarian cyst.,has mild guarding and pain with jostling. NO bm, took an enema this am. PROBLEM LIST: Patient Active Problem List: DEPRESSIVE DISORDER NEC[311] TOBACCO USE DISORDER[305.1] HYPERTENSION NOS[401.9] OBESITY NOS[278.00] PAST MEDICAL HISTORY: Review of patient's past medical history indicates: DEPRESSIVE DISORDER NEC PAST SURGICAL HISTORY: Review of patient's past surgical history indicates: NONSPECIFIC PROCEDURE Comment: Partial, abdo hyst for fibroids, anemia NONSPECIFIC PROCEDURE Comment: SBO w/ 3 resected CURRENT MEDICATIONS: Current prescriptions: LISINOPRIL 10 MG OR TABS 1 tab PO QD (Once per day) LEXAPRO 10 MG OR TABS 1 TABLET DAILY EFFEXOR XR 150 MG OR CP24 1 CAPSULE DAILY WITH FOOD ADVAIR DISKUS 500-50 MCG/DOSE IN MISC 1 puff bid AVELOX 400 MG OR TABS 1 TABLET DAILY VERAPAMIL HCL 80 MG OR TABS 1 TABLET 2 TIMES DAILY FAMILY HISTORY: Patient's family history None on file HEALTH MAINTENANCE: REVIEW OF OUTSIDE RECORDS: NO REVIEW OF SYSTEMS: C: NEGATIVE for fever, chills, change in weight I: NEGATIVE for worrisome rashes, moles or lesions E: NEGATIVE for vision changes or irritation E/M: NEGATIVE for ear, mouth and throat problems R: NEGATIVE for significant cough or SOB CV: NEGATIVE for chest pain, palpitations or peripheral edema GI: NEGATIVE for nausea, abdominal pain, heartburn, or change in bowel habits : NEGATIVE for frequency, dysuria, or hematuria N: NEGATIVE for weakness, dizziness or paresthesias E: NEGATIVE for temperature intolerance, skin/hair changes H: NEGATIVE for bleeding problems EXAM: BP 118/88 Temp (Src) 99.8 (Oral) GENERAL APPEARANCE: healthy, alert and no distress EXAM: GENERAL APPEARANCE: healthy, alert and no distress EYES: EOMI, fundi benign- PERRL HENT: ear canals and TM's normal and nose and mouth without ulcers or lesions NECK: no adenopathy, no asymmetry, masses, or scars and thyroid normal to palpation RESP: lungs clear to auscultation - no rales, rhonchi or wheezes CV: regular rates and rhythm, normal S1 S2, no S3 or S4 and no murmur, click or rub - ABDOMEN: aorta normal, bowel sounds normal, liver span normal to percussion, spleen non-palpable and tender with guarding rlq SKIN: no suspicious lesions or rashes NEURO: Normal strength and tone, sensory exam grossly normal, mentation intact and speech normal PSYCH: mentation appears normal. and affect normal/bright ASSESSMENT/PLAN 789.03 ABDOMINAL PAIN RLQ I have discussed with patient the risks, benefits, medications, treatment options and modalities. I have instructed the patient to call or schedule a follow-up appointment if any problems or failure to improve. documented in this encounter Nursing Notes 05/07/2004 2:00 PM CST >> LEATHA VIRAMONTES 05/07/04 2:14 pm Robbie Miller presents for pelvic pain - nausea and difficulty walking. Initial BP 118/88 Temp (Src) 99.8 (Oral). BP completed using cuff size: large. Leatha Viramontes MA documented in this encounter Plan of Treatment Not on filedocumented as of this encounter Procedures Procedure Name Priority Date/Time Associated Diagnosis Comme nts HCL UA MICRO IF Routine 05/07/2004 2:42 PM Abdominal Pain Rlq Results for this POSITIVE BUNG DRIVER procedure are i n the results section. CL AFF CBC WITH Routine 05/07/2004 2:41 PM Abdominal Pain Rlq Results for this PLATELETS, DIFF BUNG DRIVER procedure ar e in the results section. documented in this encounter Results (ABNORMAL) UA MICRO IF POSITIVE (05/07/2004 2:42 PM BUNG DRIVER) [facility] Method Time Signature Color Urine Yellow [facility] Appearance Urine Clear [facility] Glucose Urine Negative NEG mg/dL [facility] Bilirubin Urine Negative NEG [facility] Ketones Urine Trace (A) NEG mg/dL [facility] Specific [place] 1.025 1.001 - [place] Urine 1.035 [facility] Blood Urine Negative NEG [facility] pH Urine 6.0 5.0 - 7.0 [place] pH [facility] Protein Albumin Negative NEG mg/dL [place] Urine [facility] Urobilinogen 0.2 0.2 - 1.0 [place] Urine EU/dL [facility] Nitrite Urine Negative NEG [facility] Leukocyte Negative NEG [place] Esterase Urine [facility] Source Midstream [place] Urine [facility] Specimen Anatomical Collection Method Collection Time Receive d Time (Source) Location / / Volume Laterality 05/07/2004 2:42 PM 5 2:44 BUNG DRIVER PM BUNG DRIVER Rohan Mora MD LABORATORY Performing Organization Address City/State/[facility] Code Phon e Number [facility] [id number] [place] [phone] [facility] (ABNORMAL) CBC WITH PLATELETS, DIFF (05/07/2004 2:41 PM BUNG DRIVER) [facility] gist Method Time Signature WBC 12.8 (H) 4.0 - [facility] 11.0 ON LICENSE OF [facility] 10e9/L CLINIC LAB RBC Count 4.94 3.8 - 5.2 [place] 10e12/L [facility] Hemoglobin 15.3 11.7 - [facility] 15.7 g/dL [facility] Hematocrit 46.0 35.0 - [facility] 47.0 % [facility] MCV 93 78 - 100 [place] fl [facility] MCH 31.0 26.5 - [facility] 33.0 pg [facility] MCHC 33.3 32.0 - [facility] 36.0 g/dL [facility] RDW 13.4 10.0 - [facility] 15.0 % [facility] Platelet Count 266 150 - 450 [place] 10e9/L [facility] Diff Method Automated [place] Method [facility] % Lymphocytes 21 20 - 48 % [facility] % Monocytes 6 0 - 12 % [facility] % Granulocytes 73 40 - 75 % [facility] Absolute 2.7 0.8 - 5.3 [place] Lymphocytes 10e9/L [facility] Absolute 0.8 0.0 - 1.3 [place] Monocytes 10e9/L [facility] Absolute 9.4 (H) 1.6 - 8.3 [place] Granulocytes 10e9/L [facility] Specimen Anatomical Collection Method Collection Time Receive d Time (Source) Location / / Volume Laterality 05/07/2004 2:41 PM 5 2:43 BUNG DRIVER PM BUNG DRIVER Rohan Mora MD LABORATORY Performing Organization Address City/State/ZIP Code Phon e Number [facility] [id number] [place] [address] [facility] documented in this encounter Visit Diagnoses Diagnosis Abdominal pain, right lower quadrant - P rimary Other and unspecified ovarian cyst documented in this encounter Care Teams Dragline Engineer Relationship Specialty Start Date End Date Nando Grajeda MD PCP - General 06/08/03 01/27/13 [facility] [place] [address] [place] [address] [address] [place] [address] documented as of this encounter
--- OUTSIDE RECORDS SUMMARY | 2022-01-30 11:41 | XMS_ITS | Encounter Summary ---
:1960 Author Organization [place] Address [address] [place] [address]. [place] [address] Care Team Providers Name Role Phone Unavailable Primary Care Provider Unavailable Reason for Visit Reason Comments Refill Request Encounter Details Date Type Department Care Team Description 12/06/2002 Refill [facility] Andreea Hendricks PA-C Refill Request [place] [address] [facility] [address] [place], [place] [phone] Social History Tobacco Use Types Packs/Day Years [...] How often do you attend jainism or advent Never 08/12/2021 services? Do you [...] this encounter Miscellaneous Notes Telephone Encounter - 12/06/2002 11:59 PM CDT >> KRISTIN Núñez Dec 06, 2002 9:24 AM >> CALL RECEIVED. Contact: Last Seen 02/28/02, Last Refilled 09/16/02 Jay Mcbride CMA documented in this encounter Plan of Treatment Not on filedocumented as of this encounter Visit Diagnoses Not on filedocumented in this encounter
--- OUTSIDE RECORDS SUMMARY | 2022-01-30 11:41 | XMS_ITS | Encounter Summary ---
:1960 Author Organization [place] Address [address] [place] [address] Care Team Providers Name Role Phone Nando Grajeda MD Primary Care Provider Encounter Details Date Type Department Care Team Description 05/07/2004 Results Only [facility] Results Deven Armenta MD EMERGENCY PHYSIC [place] [facility] [address] [place], [place] [address] (Wo rk) Social History Tobacco Use Types [...] How often do you attend methodist or mandaen Never 08/12/2021 services? Do you [...] Procedure Name Priority Date/Time Associated Diagnosis Comme [facility] US PELVIC Routine 05/07/2004 8:01 PM Results f or this NON-OB, COMPLETE NEUROLOGY PHYSICIAN ASSISTANT procedure a re in the results section. documented in this encounter Results SONO PELVIS COMPLETE (05/07/2004 8:01 PM NEUROLOGY PHYSICIAN ASSISTANT) Specimen (Source) Anatomical Collection Method Collection Time Re ceived Time Location / / Volume Laterality 05/07/2004 8:01 PM NEUROLOGY PHYSICIAN ASSISTANT Impressions Pacs, Data Conversion - 05/08/2004 11:07 AM NEUROLOGY PHYSICIAN ASSISTANT PELVIC ULTRASOUND WITH TRANSVAGINAL ? CLINICAL HISTORY: ??Right sided pain. ?? Hysterectomy in 2000. ? TECHNIQUE: ??Additional transvaginal sca nning for clarification of the right ovarian cyst. ? FINDINGS: ??The uterus is absent. ??Ther e is no free fluid in the pelvis. ? The left ovary is normal. ?? There is a complex multiseptated cyst in the right adnexa which appears to be an ovarian cyst. ??It narda ures 3.2cm in diameter. ??There is blood flow in both ovaries. ? IMPRESSION: Probable hemorrhagic cyst right ovary. ? ?Recommend follow up ultrasound after 2-3 months to re-evalua te. ? This agrees with the preliminary report by Dr. Nicki Hill. Johnnie Armenta MD SPECIAL IMAGING STUDIES documented in this encounter Visit Diagnoses Not on filedocumented in this encounter Care Teams Supervisor Capacitor Processing Relationship Specialty Start Date End Date Nando Grajeda MD PCP - General 06/08/03 01/27/13 [facility] [place] [address] [facility] [address] [place] [address] documented as of this encounter
--- OUTSIDE RECORDS SUMMARY | 2022-01-30 11:41 | XMS_ITS | Encounter Summary ---
:1960 Author Organization [place] Address [address] [place] [address] Care Team Providers Name Role Phone Nando Grajeda MD Primary Care Provider [phone] Reason for Visit Reason Onset Date Comments Refill Request 11/20/2004 Lisinopril Encounter Details Date Type Department Care Team Description 11/20/2004 Refill [facility] Kin Lozano MD Refill Request [place] XXX NO INFO FOUND (Lisinopril) [address] [facility] [place], [place] [phone] [place] [address] Social History Tobacco Use Types Packs/Day Years [...] How often do you attend rastafari or hinduism Never 08/12/2021 services? Do you [...] Notes Telephone Encounter - Sara Graf - 11/20/2004 4:18 PM CDT Refill requested for Lisinopril Last OV with PCP was 05/13/04-was to recheck in 3 months Last seen with you on 10/07/04-BP was 118/82, visit disposition reads RTC in 23 days Sara Graf RN documented in this encounter Plan of Treatment Not on filedocumented as of this encounter Visit Diagnoses Diagnosis Unspecified essential hypertension - Marlyn acosta documented in this encounter Care Teams Retail Account Executive Relationship Specialty Start Date End Date Nando Grajeda MD PCP - General 06/08/03 01/27/13 [facility] [address] [facility] [address] [place] [address] documented as of this encounter
--- OUTSIDE RECORDS SUMMARY | 2022-01-30 11:41 | XMS_ITS | Encounter Summary ---
:1960 Author Organization [place] Address [address] [place] [address] Care Team Providers Name Role Phone Nando Grajeda MD Primary Care Provider [phone] Encounter Details Date Type Department Care Team Description 05/07/2004 Historic Results INTERFACED REPORT Johnnie Armenta MD EMERGENCY PHYSIC [place] [facility] [address] [place], [place] [address] (Wo rk) Social History Tobacco Use Types [...] How often do you attend samaritan or cheondoism Never 08/12/2021 services? Do you [...] Procedure Name Priority Date/Time Associated Comments Diagnosis HEMOGRAM DIFFERENTIAL STAT 05/07/2004 5:00 PM Results for this AND PLATELET BOWLING BALL MOLD ASSEMBLER procedure are i n the results section. LIPASE STAT 05/07/2004 5:00 PM Results f or this BOWLING BALL MOLD ASSEMBLER procedure are i n the results section. COMPREHENSIVE STAT 05/07/2004 5:00 PM Results for this METABOLIC PANEL BOWLING BALL MOLD ASSEMBLER procedure ar e in the results section. HCG QUALITATIVE URINE STAT 05/07/2004 4:25 PM Results for this BOWLING BALL MOLD ASSEMBLER procedure are i n the results section. UA MACROSCOPIC WITH STAT 05/07/2004 4:25 PM Re sults for this REFLEX TO MICRO BOWLING BALL MOLD ASSEMBLER procedure ar e in the results section. documented in this encounter Results (ABNORMAL) Hemogram differential and platelet (05/07/2004 5:00 PM BOWLING BALL MOLD ASSEMBLER) [facility] gist Method Time Signature MCV 92 78 - 100 [facility]IS[facility] fl MCH 30.6 26.5 - MISYS 33.0 pg MCHC 33.4 32.0 - MISYS 36.0 g/dL RDW 12.2 10.0 - MISYS 15.0 % WBC 11.8 (H) 4.0 - MISYS 11.0 10e9/L RBC Count 4.65 3.8 - 5.2 MIS[facility] 10e12/L Hemoglobin 14.2 11.7 - MISYS 15.7 g/dL Hematocrit 42.6 35.0 - MISYS 47.0 % % Neutrophils 64 40 - 75 % MISYS % Lymphocytes 25 20 - 48 % MISYS % Monocytes 8 0 - 12 % MISYS % Eosinophils 3 0 - 6 % MISYS % Basophils 0 0 - 2 % M[facility] Platelet Count 276 150 - 450 [facility] 10e9/L Absolute 7.5 1.6 - 8.3 M[facility] Neutrophil 10e9/L Absolute 3.0 0.8 - 5.3 MIS[facility] Lymphocytes 10e9/L Absolute 1.0 0.0 - 1.3 M[facility] Monocytes 10e9/L Absolute 0.4 0.0 - 0.7 [facility] Eosinophils 10e9/L Absolute 0.0 0.0 - 0.2 [facility] Basophils 10e9/L Diff Method Automated M[facility] Method Specimen Anatomical Collection Method Collection Time Receive d Time (Source) Location / / Volume Laterality 05/07/2004 5:00 PM 5 5:04 BOWLING BALL MOLD ASSEMBLER PM BOWLING BALL MOLD ASSEMBLER Johnnie Armenta MD LAB - BLOOD ORDERABLES Performing Organization Address City/State/[facility] Phon e Number MISYS Comprehensive metabolic panel (05/07/2004 5:00 PM BOWLING BALL MOLD ASSEMBLER) P athologist Signature Sodium 138 133 - 144 [facility] mmol/L Potassium 3.6 3.4 - 5.3 [facility] mmol/L Chloride 102 94 - 109 [facility] mmol/L Carbon Dioxide 24 20 - 32 [facility] mmol/L Glucose 85 60 - 110 [facility] mg/dL Urea Nitrogen 7 5 - 24 [facility] mg/dL Creatinine 0.60 0.60 - MIS[facility] 1.30 mg/dL GFR Estimate >80 >60 [facility] mL/min/1.7 m2 GFR Estimate If >80 >60 [facility] Black mL/min/1.7 m2 Calcium 9.1 8.5 - 10.4 M[facility] mg/dL AST 22 0 - 45 U/L MIS[facility] Protein Total 7.7 6.0 - 8.2 [facility] g/dL Anion Gap 12 6 - 17 [facility] mmol/L Albumin 4.1 3.3 - 4.6 [facility] g/dL ALT 33 0 - 50 U/L M[facility] Alkaline 73 40 - 150 [facility] Phosphatase U/L Bilirubin Total 0.8 0.2 - 1.3 [facility] mg/dL Specimen Anatomical Collection Method Collection Time Receive d Time (Source) Location / / Volume Laterality 05/07/2004 5:00 PM 5 5:04 BOWLING BALL MOLD ASSEMBLER PM BOWLING BALL MOLD ASSEMBLER Johnnie Armenta MD LAB - BLOOD ORDERABLES Performing Organization Address [facility] Phon e Number MISYS Lipase (05/07/2004 5:00 PM BOWLING BALL MOLD ASSEMBLER) P athologist Signature Lipase 41 20 - 250 U/L MISYS Specimen Anatomical Collection Method Collection Time Receive d Time (Source) Location / / Volume Laterality 05/07/2004 5:00 PM 5 5:04 BOWLING BALL MOLD ASSEMBLER PM BOWLING BALL MOLD ASSEMBLER Johnnie Armenta MD LAB - BLOOD ORDERABLES Performing Organization Address [facility]/ZIP Code Phon e Number MISYS UA macroscopic with reflex to micro (05/07/2004 4:25 PM BOWLING BALL MOLD ASSEMBLER) Patholo gist Method Time Signature Source Midstream MISYS Urine Color Urine Yellow MISYS Appearance Urine Clear MISYS Glucose Urine Negative NEG mg/dL MISYS Bilirubin Urine Negative NEG MIS[facility] Ketones Urine Negative NEG mg/dL MIS[facility] Specific [place] 1.020 1.001 - MISYS Urine 1.035 Blood Urine Negative NEG MIS[facility] pH Urine 7.0 5.0 - 7.0 MISYS pH Protein Albumin Negative NEG mg/dL MISYS Urine Urobilinogen 0.2 0.2 - 1.0 MIS[facility] Urine EU/dL Nitrite Urine Negative NEG MIS[facility] Leukocyte Negative NEG [facility] Esterase Urine Specimen Anatomical Collection Method Collection Time Receive d Time (Source) Location / / Volume Laterality 05/07/2004 4:25 PM 5 4:18 BOWLING BALL MOLD ASSEMBLER PM BOWLING BALL MOLD ASSEMBLER Johnnie Armenta MD LAB - URINE ORDERABLES Performing Organization Address City/State/ZIP Code Phon e Number MISYS HCG qualitative urine (05/07/2004 4:25 PM BOWLING BALL MOLD ASSEMBLER) P athologist Signature HCG Qual Urine Negative NEG MISYS Comment: Charge credited Test canceled by physician Specimen Anatomical Collection Method Collection Time Receive d Time (Source) Location / / Volume Laterality 05/07/2004 4:25 PM 5 4:18 BOWLING BALL MOLD ASSEMBLER PM BOWLING BALL MOLD ASSEMBLER Johnnie Armenta MD LAB - URINE ORDERABLES Performing Organization Address City/State/ZIP Code Phon e Number MISYS documented in this encounter Visit Diagnoses Not on filedocumented in this encounter Care Teams Lamination Inspector Relationship Specialty Start Date End Date Nando Grajeda MD PCP - General 06/08/03 01/27/[address] [place] [address] documented as of this encounter
--- OUTSIDE RECORDS SUMMARY | 2022-01-30 11:41 | XMS_ITS | Encounter Summary ---
:1960 Author Organization [facility] Address [address] [place] [address] Care Team Providers Name Role Phone Nando Grajeda MD Primary Care Provider [phone] Encounter Details Date Type Department Care Team Description 05/07/2004 [facility] DIAGNOS[facility] NOT YET [facility] [place] XXX NO INFO FOUND DEFINED (Primary Dx) [id number] [facility] [place] [address] [place], [place] [id number] Social History Tobacco Use Types Packs/Day Years [...] How often do you attend gnosticism or sabianist Never 08/12/2021 services? Do you [...] Name Priority Date/Time Associated Diagnosis Comme nts ABSTRACT LABCARE Routine 05/07/2004 DIAGNOSIS NOT YET REPORT DEFINED HCL POTASSIUM Routine 05/07/2004 DIAGNOSIS NOT YET Results f or this DEFINED procedure are i n the results section . HCL GLUCOSE Routine 05/07/2004 DIAGNOSIS NOT YET Results fo r this DEFINED procedure are i n the results section . HCL ALT Routine 05/07/2004 DIAGNOSIS NOT YET Results fo r this DEFINED procedure are i n the results section . HCL AST Routine 05/07/2004 DIAGNOSIS NOT YET Results fo r this DEFINED procedure are i n the results section . HCL CREATININE Routine 05/07/2004 DIAGNOSIS NOT YET Results for this DEFINED procedure are i n the results section . documented in this encounter Results ALANINE AMINO (ALT) (SGPT) (05/07/2004) P athologist Signature ALT 33 U/L MIS[facility] Charlotte Lozano MD LABORATORY Performing Organization Address City/State/ZIP Code Phon e Number MIS[facility] AST (05/07/2004) P athologist Signature AST 22 U/L [facility] Charlotte Lozano MD LABORATORY Performing Organization Address City/State/ZIP Code Phon e Number MIS[facility] CREATININE (05/07/2004) P athologist Signature Creatinine 0.60 mg/dL [facility] Charlotte Lozano MD LABORATORY Performing Organization Address City/[facility]/ZIP Code Phon e Number MIS[facility] POTASSIUM (05/07/2004) P athologist Signature Potassium 3.6 mmol/L MIS[facility] Charlotte Lozano MD LABORATORY Performing Organization Address City/State/ZIP Code Phon e Number M[facility] GLUCOSE (05/07/2004) P athologist Signature Glucose 85 mg/dL [facility] Charlotte Lozano MD LABORATORY Performing Organization Address City/State/ZIP Code Phon e Number MISYS ABSTRACT LABCARE REPORT (05/07/2004) Specimen (Source) Anatomical Location Collection Method / Collectio n Time Received Time / Laterality Volume 05/07/2004 Narrative This result has an attachment that is no t available. Charlotte Lozano MD LABORATORY Performing Organization Address City/[facility]/ZIP Code Phon e Number MISYS documented in this encounter Visit Diagnoses Diagnosis DIAGNOSIS NOT YET DEFINED - Primary documented in this encounter Care Teams Hospital Housekeeper Relationship Specialty Start Date End Date Nando Grajeda MD PCP - General 06/08/03 01/27/13 [facility] [place] [address] [facility] [address] [place] [address] documented as of this encounter
--- OUTSIDE RECORDS SUMMARY | 2022-01-30 11:41 | XMS_ITS | Encounter Summary ---
:1960 Author Organization [place] Address [address] [place] [address]. [place] [address] Care Team Providers Name Role Phone Nando Grajeda MD Primary Care Provider [phone] Reason for Visit Reason Comments Allergies Derm Problem itchy, cracked hands Encounter Details Date Type Department Care Team Description 04/06/2004 Office Visit [facility] Nando Grajeda BENIGN HYPERTENSION; [facility] [place] DERMATITIS NOS; [address] [facility] DEPRESSIVE DISORDER NEC [[id number]] [place], [place] 701 [facility] [address] [address] [place] [address] Social History Tobacco Use Types Packs/Day Years [...] How often do you attend buddhism or yarsanism Never 08/12/2021 services? Do you [...] Sign Reading Time Taken Comments Blood Pressure 154/92 04/06/2004 9:22 AM SERVICE SPECIALIST Pulse - - Temperature - - Respiratory Rate - - Oxygen Saturation - - Inhaled Oxygen Concentration - - Weight - - Height - - Body Mass Index - - documented in this encounter Progress Notes 04/06/2004 9:15 AM SERVICE SPECIALIST Robbie Miller, a 44 year old female scheduled an appointment to discuss these issues: Pleaserefer to Note section below for further subjective details. BENIGN HYPERTENSION DERMATITIS NOS DEPRESSIVE DISORDER NEC Medical, surgical, family and social histories all reviewed and updated. ROS: CONSTITUTIONAL:fatigue INTEGUMENTARY/SKIN: NEGATIVE for worrisome rashes, moles or lesions and inflammed , raised dy periorbital area BP 154/92 EXAM: GENERAL APPEARANCE: healthy, alert and mild distress RESP: lungs clear to auscultation - no rales, rhonchi or wheezes CV: regular rates and rhythm, normal S1 S2, no S3 or S4 and no murmur, click or rub LYMPHATICS: normal ant/post cervical, axillary, supraclavicular and inguinal nodes ABDOMEN: soft, nontender, without hepatosplenomegaly or masses, bowel sounds normal, liver span normal to percussion and no palpable masses 401.1 BENIGN HYPERTENSION Note: uncontrolled Plan: LISINOPRIL 10 MG OR TABS mildred in 3 mo 692.9 DERMATITIS NOS Note: periorbital, swelling and cracking Plan: /orderssaray DEPRESSIVE DISORDER NEC [[id number]] Note: more depressed than anxious , dissatisfed w/ effexor, will offer lexapro Plan: LEXAPRO 10 MG OR TABS documented in this encounter Nursing Notes 04/06/2004 9:15 AM CST >> LEATHA VIRAMONTES 04/06/04 9:23 am Robbie Woodsonaudrey presents for allergies and itchy, cracked hands. Initial BP 154/92. BP completed using cuff size: large. Leatha Viramontes MA documented in this encounter Plan of Treatment Not on filedocumented as of this encounter Visit Diagnoses Diagnosis Essential hypertension, benign Contact dermatitis and other eczema, due to unspecified cause DEPRESSIVE DISORDER NEC [[id number]] Depressive disorder, not elsewhere class ified documented in this encounter Care Teams Missile Inspector Preflight Relationship Specialty Start Date End Date Nando Garjeda MD PCP - General 06/08/03 01/27/13 [facility] [place] [address] [facility] [address] [place] [address] documented as of this encounter
--- OUTSIDE RECORDS SUMMARY | 2022-01-30 11:41 | XMS_ITS | Encounter Summary ---
:1960 Author Organization [place] [facility] Address [address] [place] [address]. [place] [address] Care Team Providers Name Role Phone Nando Grajeda MD Primary Care Provider Reason for Visit Reason Comments Wrist Pain left wrist injury Encounter Details Date Type Department Care Team Description 10/07/2004 Office Visit [facility] Rohan Mora HAND/WRIST Clinic [place] MD Mario [facility] (Primary Dx) [address] [address] [phone] Social History Tobacco Use Types Packs/Day Years [...] How often do you attend orthodox or synagogue Never 08/12/2021 services? Do you [...] Sign Reading Time Taken Comments Blood Pressure 118/82 10/07/2004 2:45 PM CDT Pulse - - Temperature 37.6 ??C (99.7 ??F) 10/07/2004 2:45 PM CDT Respiratory Rate - - Oxygen Saturation - - Inhaled Oxygen Concentration - - Weight 93.4 kg (206 lb) 10/07/2004 2:45 PM CDT Height 165.1 cm (5' 5) 10/07/2004 2:45 PM CDT Body Mass Index 34.28 10/07/2004 2:45 PM CDT documented in this encounter Progress Notes Rohan Mora - 10/07/2004 3:28 PM CDT SUBJECTIVE: Robbie Miller is a 44 year old female who sustained a left wrist injury 2 weeks ago. Mechanism of injury: overuse. Immediate symptoms: delayed pain, delayed swelling. Symptoms have been gradual since that time. Prior history of related problems: no prior problems with this area in the past. OBJECTIVE: Vital signs as noted above. Appearance: in no apparent distress. Wrist exam: soft tissue tenderness and swelling at the distal radius and tendons. X-ray: no fracture or dislocation noted. ASSESSMENT: wrist strain PLAN: rest the injured area as much as practical, apply ice packs and use nsaids See orders in EpicCare. documented in this encounter Nursing Notes 10/07/2004 2:45 PM CDT >> LEATHA VIRAMONTES 10/07/2004 3:01 pm Robbie Miller presents for left wrist injury. Initial BP 118/82 Temp (Src) 99.7 (Oral) Ht 5' 5 (1.65m) Wt 206 lbs (93.4kg) LMP Hysterectomy Body Mass Index is 34.28 kg/(m^2). . BP completed using cuff size: large. Leatha Viramontes CMA documented in this encounter Plan of Treatment Not on filedocumented as of this encounter Visit Diagnoses Diagnosis Other tenosynovitis of hand and wrist - Primary documented in this encounter Care Teams Roll Plugger Relationship Specialty Start Date End Date Nando Grajeda MD PCP - General 06/08/03 01/27/13 [facility] [address] [facility] [address] [place] [address] documented as of this encounter
[2022-01-30 14:28] LABS: Chloride* 100 mmol/L (96-114); Sodium* 139 mmol/L (135-149)
[2022-01-30 14:29] LABS: Potassium* 4.8 mmol/L (3.6-5.1)
[2022-01-30 14:31] LABS: Blood Urea Nitrogen* 20 mg/dL (7-30); Carbon Dioxide* 30 mmol/L (20-32); Cholesterol* 244 mg/dL (90-199); Creatinine* 0.7 mg/dL (0.5-1.5); Estimated Glomerular Filt Rate 97 ml/min
[2022-01-30 14:32] LABS: Calcium* 9.9 mg/dL (8.4-10.6); Glucose* 96 mg/dL (60-115); HDL Cholesterol* 46 mg/dL (>=50); LDL Cholesterol Calculated 148 mg/dL (<100); Triglycerides* 248 mg/dL (40-149)
== END 2022-01-30 11:23 | disposition home or self-care (01) ==
PROVIDERS: PCP Internal Medicine; Visit Provider Internal Medicine
DX: I10 Essential (primary) hypertension (principal); E78.5 Hyperlipidemia, unspecified
CPT/HCPCS: 80048; 80061